=== PATIENT | male | born 1965 | race Caucasian/White ===

== ENCOUNTER → 2019-10-13 15:19 | Outpatient (CLI) | payer MEDICARE, MEDICAID, SELFPAY ==
--- NOTE | ~2019-10-13 | CT_ITS ---
EXAMINATION: CT abdomen pelvis w con DATE: 10/13/2019 15:55 INDICATION: Left lower quadrant abdominal pain. History of appendectomy and hernia repair. TECHNIQUE: Computed tomography (CT) of the abdomen and pelvis was performed with 100 cc Omnipaque 350 intravenous contrast. Automated exposure control and iterative reconstruction technique were employe d. Exam dose: 481.39 mGy-cm total exam DLP. COMPARISON: 04/15/2018 CT abdomen pelvis FINDINGS: There is mild discoid atelectasis or scarring in the lateral left lung base. The included l ower lung zones otherwise are clear of infiltrate or consolidation. There is prominent cardiomegaly. No pericardial or pleural effusion. Possible hepatic steatosis. No hepatic space-occupying mass lesion. The gallbladder is present and ap pears unremarkable. No bile duct or pancreatic duct dilatation. No pancreatic mass lesion or calcific ation is evident. Normal splenic size. No adrenal mass lesion. No renal mass lesion. Small lower pole left renal accessory artery is again identified. At least one small left renal cyst is suggested. There is incomplete rotation of the left kidney, the left renal p wiley directed anteriorly. No ureteral calculus or hydroureteronephrosis. Normal caliber of the abdominal aorta. No intraperitoneal or retroperitoneal or pelvic mass lesion or adenopathy or ascites. There is a small amount of free fluid in the dependent pelvic area at the mid line into the right. The urinary bladder is unremarkable. Moderate prostate enlargement. No bowel obstruction, bowel wall thickening, pneumatosis or intraperitoneal free air. Degenerative changes of the thoracic and lumbar spine including severe degenerative disc disease and mild retrolisthesis at L5-S1. IMPRESSION: Probable hepatic steatosis Prominent cardiomegaly Small amount of nonspecific free fluid in the dependent pelvis Moderate prostate enlargement Reviewed, dictated and finalized at [facility]. Reviewed, dictated and finalized at location [facility].
[2019-10-13 15:41] LABS: Estimated Glomerular Filt Rate > 60
== END ==
PROVIDERS: Visit Provider Surgery
DX: R10.32 Left lower quadrant pain (principal); K76.0 Fatty (change of) liver, not elsewhere classified; I51.7 Cardiomegaly
CPT/HCPCS: 36415; 74177; Q9967

== ENCOUNTER → 2021-06-20 11:57 | Outpatient (CLI) | payer MEDICARE, MEDICAID, SELFPAY ==
--- NOTE | ~2021-06-20 | XR_ITS ---
XR cervical spine 4-5V DATE: 06/20/2021 12:52 INDICATION: Neck pain TECHNIQUE: AP, open-mouth and lateral views. Flexion and extension lateral views. COMPARISON: None FINDINGS: C1 and C2 are normally aligned and the odontoid process is intact. No fracture or dislocati on or locked facet or cervical instability. No prevertebral soft tissue swelling. There is moderately severe degenerative disc disease at C5-6 and C6-7 as well as C7-T1. Uncovertebral joint spurring is noted particularly at C5-6 and C6-7. IMPRESSION: Cervical spondylosis; no fracture or dislocation or cervical instability Reviewed, dictated and finalized at location [facility]. IMPRESSION: Cervical spondylosis; no fracture or dislocation or cervical instab ility
== END ==
PROVIDERS: PCP Family Medicine; Visit Provider Nurse Practitioner Family
DX: M47.813 Spondylosis without myelopathy or radiculopathy, cervicothoracic region (principal)
CPT/HCPCS: 72050

== ENCOUNTER 2021-06-28 12:32 | Outpatient (CLI) | payer MEDICARE, MEDICAID, SELFPAY ==
[2021-06-28 13:34] LABS: Basophils Percent Auto 0.1 % (0.2-1.2); Hematocrit 42.8 % (42.0-52.0); Hemoglobin 14.4 g/dL (14.0-18.0); Immature Granulocyte Absolute 0.06 K/mm3 (0.00-0.031); Immature Granulocyte Percent A 0.4 % (0-0.5); Mean Corpuscular HGB Conc 33.6 g/dl (32-36); Mean Corpuscular Hemoglobin 31.9 pg (26-34); Mean Corpuscular Volume 94.9 fl (80-100); Mean Platelet Volume 9.3 fl (7.4-10.4); Monocytes Absolute Auto 0.5 K/mm3 (0.1-0.6); Monocytes Percent Auto 3.3 % (2.6-8.5); Neutrophils Absolute Auto 12.8 K/mm3 (1.3-6.7); Neutrophils Percent Auto 89.2 % (45.5-73.1); Platelet Count Result 250 k/mm3 (150-375); Red Blood Count 4.51 M/mm3 (4.6-6.20); Red Cell Distribution Width 12.9 % (11.5-14.5); White Blood Count 14.4 K/mm3 (4.5-10.0)
[2021-06-28 13:44] LABS: Alanine Aminotransferase 18 U/L (4-50); Albumin Level 4.3 g/dL (3.5-5.1); Alkaline Phosphatase 66 U/L (38-126); Anion Gap 8 mmol/L (8-16); Aspartate Amino Transferase 21 U/L (17-59); Blood Urea Nitrogen 20 mg/dL (9-20); Calcium 8.7 mg/dL (8.4-10.2); Carbon Dioxide 28 mmol/L (22-30); Chloride 99 mmol/L (98-107); Estimated Glomerular Filt Rate > 60; Glucose 159 mg/dL (65-110); Potassium 3.8 mmol/L (3.4-5.0); Sodium 135 mmol/L (137-145)
[2021-06-28 14:15] LABS: Prostate Specific Antigen 0.5 ng/mL (< OR = 4.0); Thyroid Stimulating Hormone 0.212 uIU/mL (0.465-4.680)
== END 2021-06-28 12:33 | disposition home or self-care (01) ==
LOC: ANHLAB 12:34
PROVIDERS: PCP Family Medicine; Visit Provider Family Medicine
DX: Z12.5 Encounter for screening for malignant neoplasm of prostate (principal); N40.0 Benign prostatic hyperplasia without lower urinary tract symptoms; I50.42 Chronic combined systolic (congestive) and diastolic (congestive) heart failure; K75.81 Nonalcoholic steatohepatitis (NASH)
CPT/HCPCS: 36415; 80048; 80076; 84153; 84443; 85025; G0103

== ENCOUNTER 2021-08-12 13:11 | Outpatient (CLI) | payer MEDICARE, MEDICAID, SELFPAY ==
--- NOTE | ~2021-08-12 | XR_ITS ---
XR chest 2V 08/12/2021 13:52 Indication: Cough. History of emphysema and COPD. Procedure: 2 view chest Comparison: No prior studies for comparison. Findings: Borderline heart size. There is coarse right basilar atelectasis/scarring. No acute focal p neumonia, edema, pleural effusion or pneumothorax. No acute osseous abnormality. Impression: 1: Coarse right basilar atelectasis/scarring. Reviewed, dictated and finalized at location [facility]. Impression: 1: Coarse right basilar atelectasis/scarring.
[2021-08-12 14:13] LABS: Anion Gap 11 mmol/L (8-16); Blood Urea Nitrogen 11 mg/dL (9-20); Calcium 8.7 mg/dL (8.4-10.2); Carbon Dioxide 27 mmol/L (22-30); Chloride 101 mmol/L (98-107); Estimated Glomerular Filt Rate > 60; Glucose 98 mg/dL (65-110); Potassium 3.8 mmol/L (3.4-5.0); Sodium 139 mmol/L (137-145)
[2021-08-12 14:44] LABS: Thyroid Stimulating Hormone 0.479 uIU/mL (0.465-4.680)
[2021-08-12 14:54] LABS: HIV 1/2 Ab P24 Ag Result Negative (Negative)
[2021-08-12 14:58] LABS: Hemoglobin A1C 5.7 % (<5.7)
[2021-08-15 06:16] LABS: Rapid Plasma Reagin Non-Reactive (NonReactive)
[2021-08-19 10:55] LABS: HSV 1 IgM Screen Negative (Negative); HSV 2 IgM Screen Negative (Negative)
== END 2021-08-12 13:12 | disposition home or self-care (01) ==
LOC: ANHLAB 13:28
PROVIDERS: Nurse Practitioner Family; PCP Family Medicine; Visit Provider Nurse Practitioner Family
DX: R73.09 Other abnormal glucose (principal); R79.89 Other specified abnormal findings of blood chemistry; J43.9 Emphysema, unspecified; R05.3 Chronic cough; Z20.2 Contact with and (suspected) exposure to infections with a predominantly sexual mode of transmission
CPT/HCPCS: 36415; 71046; 80048; 83036; 84443; 86592; 86695; 86696; 86703; 87491; 87591; 87661; G0432

== ENCOUNTER 2021-09-19 01:40 | Day surgery (SDC) | payer MEDICARE, MEDICAID, SELFPAY ==
[2021-09-15 10:41] VITALS: BMI 22.0
--- NOTE | 2021-09-16 13:46 | PM.HPGS ---
History of Present Illness History of Present Illness Consent: Risks, benefits, and alternatives have been discussed and questions answered. Patient agrees to proceed with procedure. Chief complaint: neoplasm screening Narrative: Miguelito Lopes is a 56 year old male referred for colon cancer screening Review of Systems Review of Systems: All systems reviewed & are unremarkable except as noted in HPI and below PMFSH Past Medical History Medical History Abdominal hernia Anxiety disorder, unspecified Atrial fibrillation and flutter Bladder wall thickening BMI 21.0-21.9, adult BMI 22.0-22.9, adult Cardiomegaly Congestive heart failure, unspecified COPD (chronic obstructive pulmonary disease) DJD (degenerative joint disease) of cervical spine Eye injury Fatty liver Hematuria Left inguinal hernia Lumbar spondylosis Non-healing skin lesion Patellofemoral syndrome, left Prostate enlargement Pulmonary emphysema Rotator cuff tear Screen for colon cancer Steatohepatitis Umbilical hernia Surgical History Surgical History History of bladder surgery ablation History of bunionectomy History of inguinal hernia repair History of knee surgery History of umbilical hernia repair History of vasectomy Family History Family History Father No problems noted. Mother Thyroid activity decreased Sibling , covid-19 No problems noted. Other Diabetes mellitus Family history of coronary artery disease Family history of malignant neoplasm Hypertension Social History Social History Smoking status: Never smoker Second hand tobacco smoke exposure: Yes Alcohol intake: never Substance use: never Substance use type: marijuana Other substance usage details: OCCASIONAL Living arrangements: with family Additional occupation/education comments: disabled Gender identity (if verbalized by the patient): Male Spiritual care concerns: No Meds Home Medications and Allergies Home Medications Medication Instructions Recorded Confirmed Type naloxone 4 mg/actuation nasal 4 mg intranasal Q2-3M PRN opioid 10/30/19 09/19/21 Rx spray (Narcan) overdose #2 ea apixaban 5 mg tablet (Eliquis) 5 mg PO BID 12/31/19 09/19/21 History duloxetine 60 mg capsule,delayed 60 mg PO DAILY #30 caps 02/03/21 09/19/21 Rx release albuterol sulfate 90 mcg/actuation 2 inh inhalation Q6H PRN shortness 05/10/21 09/19/21 Rx aerosol inhaler of breath or wheezing #8.5 grams cyclobenzaprine 5 mg tablet 5 mg PO QHS #30 tabs 08/23/21 09/19/21 Rx hydrocodone 10 mg-acetaminophen 1 tablet PO Q4H PRN pain #150 tabs 08/23/21 09/19/21 Rx 325 mg tablet alprazolam 1 mg tablet (Xanax) 1 mg PO QID PRN anxiety #120 tabs 09/14/21 09/19/21 Rx Magnesium 400mg 400 mg PO DAILY 09/15/21 09/19/21 History ergocalciferol (vitamin D2) 400 400 unit PO DAILY 09/15/21 09/19/21 History unit capsule erythromycin 5 mg/gram (0.5 %) eye 1 ea RIGHT EYE DAILY 09/15/21 09/19/21 History ointment Allergies Allergy/AdvReac Type Severity Reaction Status Date / Time ciprofloxacin Allergy Intermediate Rash Verified 09/19/21 09:27 Exam Resp: Auscultation: clear to auscultation bilaterally Cardio: Rate: regular rate Rhythm: regular rhythm GI: GI Palp: Yes Soft to palpation and No Tenderness to palpation present (GI) Assessment and Plan Assessment and plan (1) Screen for colon cancer: Code(s): Z12.11 - Encounter for screening for malignant neoplasm of colon Status: Acute Assessment and Plan: Colonoscopy with possible biopsy or polypectomy or cautery or injection of substances.
[2021-09-19 09:30] VITALS: BP 102/66; PULSE 50; RESP 18; TEMP 36.1; O2SAT 96; BMI 22.1
[2021-09-19] MEDS: LACTATED RINGERS 1,000 ML 150 ML IV CONT (09:45)
--- NOTE | 2021-09-19 09:50 | WPDANESEPPF ---
Anes - Initial Pre Proc Eval Procedure: Operation Date: 09/19/21 10:00 Proposed Procedures p Screening Colonoscopy - Gerry Banerjee MD Date/Time: 09/19/21 09:50 Surgeon: Gerry Banerjee MD Pre Op Diagnosis: neoplasm screening Patient Data Age: 56 Gender: M Height: 1.68 m Weight: 62.2 kg Last Vital Signs Temp 97.0 F L 09/19/21 09:30 Pulse 50 L 09/19/21 09:30 Resp 18 09/19/21 09:30 BP 102/66 09/19/21 09:30 Pulse Ox 96 09/19/21 09:30 O2 Del Method Room Air 09/19/21 09:30 Allergies Allergy/AdvReac Type Severity Reaction Status Date / Time ciprofloxacin Allergy Intermediate Rash Verified 09/19/21 09:27 Home Medications Medication Instructions Recorded Confirmed Type naloxone 4 mg/actuation nasal 4 mg intranasal Q2-3M PRN opioid 10/30/19 09/19/21 Rx spray (Narcan) overdose #2 ea apixaban 5 mg tablet (Eliquis) 5 mg PO BID 12/31/19 09/19/21 History duloxetine 60 mg capsule,delayed 60 mg PO DAILY #30 caps 02/03/21 09/19/21 Rx release albuterol sulfate 90 mcg/actuation 2 inh inhalation Q6H PRN shortness 05/10/21 09/19/21 Rx aerosol inhaler of breath or wheezing #8.5 grams cyclobenzaprine 5 mg tablet 5 mg PO QHS #30 tabs 08/23/21 09/19/21 Rx hydrocodone 10 mg-acetaminophen 1 tablet PO Q4H PRN pain #150 tabs 08/23/21 09/19/21 Rx 325 mg tablet alprazolam 1 mg tablet (Xanax) 1 mg PO QID PRN anxiety #120 tabs 09/14/21 09/19/21 Rx Magnesium 400mg 400 mg PO DAILY 09/15/21 09/19/21 History ergocalciferol (vitamin D2) 400 400 unit PO DAILY 09/15/21 09/19/21 History unit capsule erythromycin 5 mg/gram (0.5 %) eye 1 ea RIGHT EYE DAILY 09/15/21 09/19/21 History ointment Patient hx anesthesia problems: none Family hx anesthesia problems: none Results Review: All pre-operative results and documents have been reviewed as part of the pre-operative evaluation. [facility] Past Medical History Medical History (Updated 09/05/21 @ 08:36 by Louis Hewitt MD) Abdominal hernia Anxiety disorder, unspecified Atrial fibrillation and flutter Bladder wall thickening BMI 21.0-21.9, adult BMI 22.0-22.9, adult Cardiomegaly Congestive heart failure, unspecified COPD (chronic obstructive pulmonary disease) DJD (degenerative joint disease) of cervical spine Eye injury Fatty liver Hematuria Left inguinal hernia Lumbar spondylosis Non-healing skin lesion Patellofemoral syndrome, left Prostate enlargement Pulmonary emphysema Rotator cuff tear Screen for colon cancer Steatohepatitis Umbilical hernia Surgical History Surgical History History of bladder surgery ablation History of bunionectomy History of inguinal hernia repair History of knee surgery History of umbilical hernia repair History of vasectomy Family History Family History Father No problems noted. Mother Thyroid activity decreased Sibling , covid-19 No problems noted. Other Diabetes mellitus Family history of coronary artery disease Family history of malignant neoplasm Hypertension Social History Social History Smoking status: Never smoker Second hand tobacco smoke exposure: Yes Alcohol intake: never Substance use: never Substance use type: marijuana Other substance usage details: OCCASIONAL Living arrangements: with family Additional occupation/education comments: disabled Gender identity (if verbalized by the patient): Male Spiritual care concerns: No Anes - Eval Final PreProcedure Day of Procedure 09/19/21 09:50 Patient weight: normal Heart: irregular rhythm Lungs: clear to auscultation Airway: Mallampati scale class II Neurological: alert and oriented Last oral intake: >/= 8 hours ASA classification: III Emergent: no Anesthetic plan: proceed Anesthesia type and monitoring: general
--- NOTE | 2021-09-19 09:54 | WPDANESEPPF ---
Anes - Initial Pre Proc Eval Procedure: Operation Date: 09/19/21 10:00 Proposed Procedures p Screening Colonoscopy - Gerry Banerjee MD Date/Time: 09/19/21 09:54 Surgeon: Gerry Banerjee MD Pre Op Diagnosis: neoplasm screening Patient Data Age: 56 Gender: M Height: 1.68 m Weight: 62.2 kg Last Vital Signs Temp 97.0 F L 09/19/21 09:30 Pulse 50 L 09/19/21 09:30 Resp 18 09/19/21 09:30 BP 102/66 09/19/21 09:30 Pulse Ox 96 09/19/21 09:30 O2 Del Method Room Air 09/19/21 09:30 Allergies Allergy/AdvReac Type Severity Reaction Status Date / Time ciprofloxacin Allergy Intermediate Rash Verified 09/19/21 09:27 Home Medications Medication Instructions Recorded Confirmed Type naloxone 4 mg/actuation nasal 4 mg intranasal Q2-3M PRN opioid 10/30/19 09/19/21 Rx spray (Narcan) overdose #2 ea apixaban 5 mg tablet (Eliquis) 5 mg PO BID 12/31/19 09/19/21 History duloxetine 60 mg capsule,delayed 60 mg PO DAILY #30 caps 02/03/21 09/19/21 Rx release albuterol sulfate 90 mcg/actuation 2 inh inhalation Q6H PRN shortness 05/10/21 09/19/21 Rx aerosol inhaler of breath or wheezing #8.5 grams cyclobenzaprine 5 mg tablet 5 mg PO QHS #30 tabs 08/23/21 09/19/21 Rx hydrocodone 10 mg-acetaminophen 1 tablet PO Q4H PRN pain #150 tabs 08/23/21 09/19/21 Rx 325 mg tablet alprazolam 1 mg tablet (Xanax) 1 mg PO QID PRN anxiety #120 tabs 09/14/21 09/19/21 Rx Magnesium 400mg 400 mg PO DAILY 09/15/21 09/19/21 History ergocalciferol (vitamin D2) 400 400 unit PO DAILY 09/15/21 09/19/21 History unit capsule erythromycin 5 mg/gram (0.5 %) eye 1 ea RIGHT EYE DAILY 09/15/21 09/19/21 History ointment Patient hx anesthesia problems: none Family hx anesthesia problems: none Results Review: All pre-operative results and documents have been reviewed as part of the pre-operative evaluation. [facility] Past Medical History Medical History (Updated 09/05/21 @ 08:36 by Louis Hewitt MD) Abdominal hernia Anxiety disorder, unspecified Atrial fibrillation and flutter Bladder wall thickening BMI 21.0-21.9, adult BMI 22.0-22.9, adult Cardiomegaly Congestive heart failure, unspecified COPD (chronic obstructive pulmonary disease) DJD (degenerative joint disease) of cervical spine Eye injury Fatty liver Hematuria Left inguinal hernia Lumbar spondylosis Non-healing skin lesion Patellofemoral syndrome, left Prostate enlargement Pulmonary emphysema Rotator cuff tear Screen for colon cancer Steatohepatitis Umbilical hernia Surgical History Surgical History History of bladder surgery ablation History of bunionectomy History of inguinal hernia repair History of knee surgery History of umbilical hernia repair History of vasectomy Family History Family History Father No problems noted. Mother Thyroid activity decreased Sibling , covid-19 No problems noted. Other Diabetes mellitus Family history of coronary artery disease Family history of malignant neoplasm Hypertension Social History Social History Smoking status: Never smoker Second hand tobacco smoke exposure: Yes Alcohol intake: never Substance use: never Substance use type: marijuana Other substance usage details: OCCASIONAL Living arrangements: with family Additional occupation/education comments: disabled Gender identity (if verbalized by the patient): Male Spiritual care concerns: No Anes - Eval Final PreProcedure Day of Procedure 09/19/21 09:54 Patient weight: normal Heart: irregular rhythm Lungs: clear to auscultation Airway: Mallampati scale class II Neurological: alert and oriented Last oral intake: >/= 8 hours ASA classification: III Emergent: no Anesthetic plan: proceed Anesthesia type and monitoring: general
[2021-09-19 10:24] VITALS: BP 80/53; PULSE 72; RESP 21; O2SAT 97
[2021-09-19 10:34] VITALS: BP 86/58; PULSE 75; RESP 20; O2SAT 96
[2021-09-19 10:44] VITALS: BP 110/86; PULSE 75; RESP 19; O2SAT 100
== END 2021-09-19 10:56 | disposition home or self-care (01) ==
PROVIDERS: PCP Family Medicine; Visit Provider Internal Medicine Gastroenterology
PROC: 0DJD8ZZ Inspection of Lower Intestinal Tract, Via Natural or Artificial Opening Endoscopic (ICD-10-PCS; CPT 45378; principal; 2021-09-19 10:00)
DX: Z12.11 Encounter for screening for malignant neoplasm of colon (principal); I48.91 Unspecified atrial fibrillation; F41.9 Anxiety disorder, unspecified; I50.9 Heart failure, unspecified; J44.9 Chronic obstructive pulmonary disease, unspecified; K76.0 Fatty (change of) liver, not elsewhere classified; M47.816 Spondylosis without myelopathy or radiculopathy, lumbar region; M50.30 Other cervical disc degeneration, unspecified cervical region; Z79.891 Long term (current) use of opiate analgesic; Z79.51 Long term (current) use of inhaled steroids; Z79.01 Long term (current) use of anticoagulants
CPT/HCPCS: G0121; J2001; J2704; J7120

== ENCOUNTER 2022-05-23 07:07 | Outpatient (CLI) | payer MEDICARE, MEDICAID, SELFPAY ==
--- NOTE | ~2022-05-23 | CT_ITS ---
EXAMINATION: CT abdomen pelvis w con DATE: 05/23/2022 07:50 INDICATION: Left lower quadrant pain along hernia repair TECHNIQUE: Computed tomography (CT) of the abdomen and pelvis was performed with 100 cc Omnipaque 350 intravenous contrast. The dose-length product was 369.04 mGy-cm. Automated exposure control and iter ative reconstruction technique were employed. COMPARISON: CT dated 10/13/2019 FINDINGS: There is bibasilar atelectasis. Cardiomegaly. No significant pleural or pericardial effusio n. No significant vascular abnormality. There is malrotation of the left kidney. Fatty infiltration o f the liver. The spleen, pancreas, adrenal glands and right kidney are unremarkable. There is a small subcentimeter hypodensity of the left kidney, too small to characterize, although likely benign. Gal lbladder is present. Nonobstructive bowel gas pattern. There are changes of left inguinal hernia repa ir. No significant lymphadenopathy. Bladder is decompressed. No abnormal pelvic masses or fluid colle ctions. No free air or free fluid. Moderate lumbar spondylosis. IMPRESSION: 1. No acute abdominal abnormality. No findings to account for patient's symptoms. Reviewed, dictated and finalized at location [facility]. 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 No acute abdominal abnormality. No findings to account for patient's symptom s.
[2022-05-23 07:43] LABS: Estimated Glomerular Filt Rate > 60
== END 2022-05-23 07:08 | disposition home or self-care (01) ==
PROVIDERS: PCP Family Medicine; Visit Provider Family Medicine
DX: R10.32 Left lower quadrant pain (principal)
CPT/HCPCS: 74177; Q9967

== ENCOUNTER 2022-08-18 13:56 | Outpatient (CLI) | payer MEDICARE, MEDICAID, SELFPAY ==
--- NOTE | ~2022-08-18 | CT_ITS ---
CT Scan of the Chest without Contrast: Clinical Indication: Emphysema Technique: Contiguous sections were acquired throughout the chest without intravenous contrast. Dose reduction technique was used on this scan by utilizing automated exposure control and iterative recon struction technique. The dose-length product (DLP) was 105.18 mGy-cm. Findings: There is no evidence of any significant mediastinal, hilar or axillary lymphadenopathy. Coronary haris ry calcium cages are present. Minimal pericardial fluid noted. No pleural effusions. There is discoid scarring or atelectasis at the right lung base. There is additional probable focal s carring in the lingula. Images through the upper abdomen reveal no abnormalities. Impression: Bibasilar scarring or atelectatic change, as noted above. Minimal pericardial fluid. Reviewed, dictated and finalized at [facility]. Impression: Bibasilar scarring or atelectatic change, as noted above. Minimal pericardial fluid.
--- NOTE | ~2022-08-18 | MR_ITS ---
MRI of the cervical spine Clinical History: Cervical disc disorder Technique: Axial T2-weighted and gradient images, and sagittal T1-weighted, T2-weighted, and STIR lucina ges were acquired. Findings: There is no fracture or subluxation of the cervical spine. Vertebral bodies maintain normal height and alignment. No suspicious bone marrow signal abnormality seen. At C2-C3, there is minimal central disc protrusion. No spinal canal stenosis, cord compression, or ne ural foraminal narrowing. At C3-C4, there is minimal disc osteophyte complex. No spinal canal stenosis, cord compression, or ri ght neural foraminal narrowing. Probable minimal left neural foraminal narrowing. At C4-C5, there is minimal disc osteophyte complex. No spinal canal stenosis or cord compression. The re is minimal left neural foraminal narrowing. Right neural foramen preserved. At C5-C6, there is mild disc osteophyte complex, contributing to bilateral neural foraminal narrowing , right worse than left. No central canal stenosis or cord compression. At C6-C7, there is disc osteophyte complex and superimposed central disc protrusion resulting in mild canal stenosis without kirill cord compression. There is bilateral neural foraminal narrowing, right worse than left. No abnormal signal seen in the spinal cord. Paravertebral soft tissues are unremarkable. Impression: Moderate degenerative spondylosis, particularly at C5-C6 and C6-C7, as detailed above. Additional minimal degenerative changes, as above. Reviewed, dictated and finalized at [facility]. Impression: Moderate degenerative spondylosis, particularly at C5-C6 and C6-C7, as detailed above. Additional minimal degenerative changes, as above.
--- NOTE | ~2022-08-18 | MR_ITS ---
MRI of the lumbar spine Clinical History: Degenerative disc disease Technique: Axial T2-weighted images, and sagittal T1-weighted, T2-weighted, and and T2 fat-sat images were acquired. Findings: No fracture identified in the lumbar spine. 4 mm retrolisthesis of L5 over S1 present. Ther e are reactive marrow signal changes about the L3-L4 disc space due to underlying degenerative disc d isease. At L1-L2, there is minimal left foraminal disc bulge and minimal facet arthropathy. No central canal stenosis. No definite neural foraminal narrowing. At L2-L3, there is no disc bulge or herniation. There is mild facet arthropathy. No spinal canal sten osis or neural foraminal narrowing. At L3-L4, there is diffuse disc bulge and mild facet arthropathy. No kirill central canal stenosis. Th ere is moderate right neural foraminal narrowing and mild left neural foraminal narrowing. At L4-L5, there is disc bulge and advanced facet arthropathy. There is left lateral recess stenosis. There is moderate bilateral neural foraminal narrowing. At L5-S1, there is advanced degenerative disc narrowing with mild disc bulge. There is moderate to ad vanced facet arthropathy. No central canal stenosis. There is severe bilateral neural foraminal narro wing. Paravertebral soft tissues are unremarkable. Impression: Moderate degenerative spondylosis, as detailed above, especially involving the lower lumbar spine. 4 mm retrolisthesis of L5 over S1. Reviewed, dictated and finalized at [facility]. Impression: Moderate degenerative spondylosis, as detailed above, especially involving the lower lumbar spine. 4 mm retrolisthesis of L5 over S1.
== END 2022-08-18 13:57 | disposition home or self-care (01) ==
PROVIDERS: PCP Family Medicine; Visit Provider Family Medicine
DX: M51.37 Other intervertebral disc degeneration, lumbosacral region (principal); M50.00 Cervical disc disorder with myelopathy, unspecified cervical region; J43.9 Emphysema, unspecified; M47.892 Other spondylosis, cervical region; M47.896 Other spondylosis, lumbar region
CPT/HCPCS: 71250; 72141; 72148

== ENCOUNTER 2023-05-08 10:39 | Outpatient (CLI) | payer MEDICARE, SELFPAY ==
[2023-05-08 11:49] LABS: Basophils Absolute Auto 0.1 K/mm3 (0.0-0.1); Basophils Percent Auto 0.8 % (0.2-1.2); Eosinophils Absolute Auto 0.1 K/mm3 (0-0.3); Eosinophils Percent Auto 1.5 % (0-4.4); Hematocrit 45.6 % (42.0-52.0); Hemoglobin 14.9 g/dL (14.0-18.0); Immature Granulocyte Absolute 0.01 K/mm3 (0.00-0.031); Immature Granulocyte Percent A 0.2 % (0-0.5); Lymphocytes Absolute Auto 1.83 K/mm3 (0.9-3.2); Mean Corpuscular HGB Conc 32.7 g/dl (32-36); Mean Corpuscular Hemoglobin 31.4 pg (26-34); Mean Platelet Volume 9.4 fl (7.4-10.4); Monocytes Absolute Auto 0.5 K/mm3 (0.1-0.6); Monocytes Percent Auto 7.5 % (2.6-8.5); Neutrophils Absolute Auto 3.7 K/mm3 (1.3-6.7); Platelet Count Result 179 k/mm3 (150-375); Red Blood Count 4.75 M/mm3 (4.6-6.20); Red Cell Distribution Width 12.8 % (11.5-14.5); White Blood Count 6.1 K/mm3 (4.5-10.0)
[2023-05-08 12:00] LABS: Alanine Aminotransferase 27 U/L (6-50); Albumin Level 4.2 g/dL (3.5-5.1); Alkaline Phosphatase 66 U/L (38-126); Anion Gap 7 mmol/L (8-16); Aspartate Amino Transferase 31 U/L (17-59); Bilirubin,Total 1.2 mg/dL (0.2-1.3); Blood Urea Nitrogen 16 mg/dL (9-20); Calcium 8.8 mg/dL (8.4-10.2); Carbon Dioxide 27 mmol/L (22-30); Chloride 105 mmol/L (98-107); Cholesterol 165 mg/dL (0-200); Estimated Glomerular Filt Rate > 60; Glucose 91 mg/dL (65-110); HDL Direct 48 mg/dL; Potassium 4.5 mmol/L (3.4-5.0); Sodium 139 mmol/L (137-145); Triglycerides 114 mg/dL (<150)
[2023-05-08 12:11] LABS: LDL Cholesterol Direct 89 mg/dL
[2023-05-08 12:37] LABS: HIV 1/2 Ab P24 Ag Result Negative (Negative)
[2023-05-08 12:43] LABS: Hepatitis B Surface Antigen Negative (Negative)
[2023-05-08 12:49] LABS: HAV RESULT Negative (Negative); Hepatitis B Core IgM Result Negative (Negative)
[2023-05-08 13:00] LABS: Hepatitis C Virus Antibody Negative (Negative)
== END 2023-05-08 10:40 | disposition home or self-care (01) ==
PROVIDERS: PCP Family Medicine; Visit Provider Family Medicine
DX: I48.91 Unspecified atrial fibrillation (principal); I50.42 Chronic combined systolic (congestive) and diastolic (congestive) heart failure; Z72.51 High risk heterosexual behavior; I48.92 Unspecified atrial flutter; Z13.220 Encounter for screening for lipoid disorders; K75.81 Nonalcoholic steatohepatitis (NASH); Z11.4 Encounter for screening for human immunodeficiency virus [HIV]
CPT/HCPCS: 36415; 80048; 80061; 80074; 80076; 84443; 85025; 86703; G0432

== ENCOUNTER 2023-05-28 09:12 | Outpatient (CLI) | payer MEDICARE, SELFPAY ==
--- NOTE | ~2023-05-28 | US_ITS ---
EXAMINATION: US abdomen complete DATE: 05/28/2023 11:25 INDICATION: Fatty change of the liver TECHNIQUE: Multiple grayscale and Doppler ultrasound images of the abdomen were obtained. COMPARISON: CT, 05/23/2022 FINDINGS: The head and body of the pancreas are normal. The pancreatic tail is obscured by bowel gas. The liver is normal with normal echogenicity and echotexture. No surface nodularity. Normal hepatope ina flow in the main portal vein. The gallbladder is normal with no abnormal wall thickening, pericho lecystic fluid or stones. The normal common bile duct measures 6 mm. There was no sonographic Sofia sign. The visualized portions of the aorta and inferior vena cava are normal. The spleen is normal in appearance and measures 12.3 cm. The right kidney measures 10.8 x 5.0 x 5.0 c m. The left kidney measures 11.9 x 3.5 x 2.9 cm and contains a 1 cm cyst. The kidneys demonstrate nor mal parenchymal echogenicity. There is no hydronephrosis. IMPRESSION: 1. Unremarkable abdominal ultrasound. Reviewed, dictated and finalized at location B. 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
== END 2023-05-28 09:13 | disposition home or self-care (01) ==
PROVIDERS: PCP Family Medicine; Visit Provider Family Medicine
DX: K76.0 Fatty (change of) liver, not elsewhere classified (principal)
CPT/HCPCS: 76700

== ENCOUNTER 2023-07-18 14:20 | Outpatient (CLI) | payer MEDICARE, SELFPAY ==
[2023-07-18 15:09] LABS: Rheumatoid Factor < 12.0 IU/ML (<12)
[2023-07-18 15:09] LABS: CRP < 0.5 mg/dL (<1.0)
[2023-07-18 15:54] LABS: Erythrocyte Sedimentation Rate 7 mm/hr (0-20)
[2023-07-20 11:18] LABS: ANA Cascade Screen NEGATIVE (NEGATIVE)
== END 2023-07-18 14:21 | disposition home or self-care (01) ==
LOC: ANHLAB 14:23
PROVIDERS: PCP Family Medicine; Visit Provider Nurse Practitioner Adult Health
DX: M25.50 Pain in unspecified joint (principal)
CPT/HCPCS: 36415; 85652; 86038; 86140; 86225; 86235; 86364; 86430

== ENCOUNTER 2023-12-03 11:07 | Outpatient (CLI) | payer MEDICARE, SELFPAY ==
--- NOTE | ~2023-12-03 | XR_ITS ---
3 VIEWS LUMBAR SPINE Ordering provider: Perlita Fernandez MD History: . M43.16 - Spondylolisthesis, lumbar region . Comparison: None. FINDINGS: VERTEBRAL BODIES: No visible fracture or subluxation. Degenerative changes of the spine. DISK SPACES: Narrowing of the disc L3-L4, L4-L5 and L5-S1. Facet joint disease at the level of L5-S1. SOFT TISSUES: Normal. IMPRESSION: No acute osseous abnormality lumbar spine. Multilevel degenerative disc disease. Reviewed, dictated and finalized at location [facility].
--- NOTE | ~2023-12-03 | XR_ITS ---
[id number] Ordering provider: Noris Myles NP History: . Z91.81 - History of falling . Comparison: None. FINDINGS: VERTEBRAL BODIES: Normal height and alignment. No visible fracture or subluxation. The dens is intact . Degenerative changes of the spine. DISK SPACES: Narrowing of the disc C5-C6 and C6-C7. Uncovertebral joint osteoarthritic changes at the same levels. PARASPINOUS SOFT TISSUES: No prevertebral soft tissue swelling. IMPRESSION: No acute osseous abnormality cervical spine. Degenerative disc disease at the level of C5-C6 and C6-C7. Reviewed, dictated and finalized at location A.
== END 2023-12-03 11:08 | disposition home or self-care (01) ==
LOC: ANHIMG 11:12
PROVIDERS: PCP Family Medicine; Visit Provider Neurological Surgery
DX: M50.322 Other cervical disc degeneration at C5-C6 level (principal); M50.323 Other cervical disc degeneration at C6-C7 level; M43.16 Spondylolisthesis, lumbar region; M51.36 Other intervertebral disc degeneration, lumbar region; M51.37 Other intervertebral disc degeneration, lumbosacral region; Z91.81 History of falling
CPT/HCPCS: 72040; 72110

== ENCOUNTER 2023-12-30 07:24 | Outpatient (CLI) | payer MEDICARE, SELFPAY ==
--- NOTE | ~2023-12-30 | MR_ITS ---
MRI of the brain Clinical History: Head injury, anticoagulation Technique: Axial and sagittal T1-weighted images were acquired. These were followed by axial T2-weigh janes, diffusion weighted, gradient, and FLAIR images. Following intravenous administration of 15 cc Mu ltiHance gadolinium, T1-weighted fat-sat imaging was performed in the axial, sagittal, and coronal pl anes. Findings: No significant abnormal signal seen in the brain parenchyma. No acute infarct, intracranial hemorrhage, or mass lesion. Ventricles and subarachnoid spaces are mildly dilated. Orbits are unremarkable. There is minimal bila teral maxillary sinus disease. Paranasal sinuses and mastoid air cells are otherwise clear. Major int racranial flow voids appear intact. Sagittal midline structures are intact. No abnormal postcontrast enhancement identified. IMPRESSION: No significant abnormality seen. Reviewed, dictated and finalized at [facility].
== END 2023-12-30 07:25 | disposition home or self-care (01) ==
LOC: ANHIMG 07:29
PROVIDERS: PCP Family Medicine
DX: S09.90XA Unspecified injury of head, initial encounter (principal); Z91.81 History of falling; Z92.29 Personal history of other drug therapy; X58.XXXA Exposure to other specified factors, initial encounter
CPT/HCPCS: 70553; A9577

== ENCOUNTER 2024-03-10 10:51 | Outpatient (CLI) | payer MEDICARE, SELFPAY ==
--- NOTE | ~2024-03-10 | MR_ITS ---
EXAMINATION: MR abdomen wo con DATE: 03/10/2024 11:44 INDICATION: Incisional hernia without obstruction or gangrene. TECHNIQUE: Magnetic resonance imaging (MRI) of the abdomen was performed without intravenous contrast . COMPARISON: CT abdomen and pelvis 05/23/2022 FINDINGS: There is a 6 mm cyst in the liver. The gallbladder, spleen, pancreas, and adrenal glands are normal. There are cysts in the kidneys measuring up to 11 mm on the left. There are no dilated loops of bowel . There are no pathologically enlarged lymph nodes. There is physiologic fluid in the pelvis. There i s a supraumbilical ventral hernia containing fat. IMPRESSION: 1. Supraumbilical ventral hernia containing fat. Reviewed, dictated and finalized at location A. 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
== END 2024-03-10 10:52 | disposition home or self-care (01) ==
PROVIDERS: PCP Family Medicine; Visit Provider Nurse Practitioner Adult Health
DX: K43.9 Ventral hernia without obstruction or gangrene (principal); K43.2 Incisional hernia without obstruction or gangrene; K40.91 Unilateral inguinal hernia, without obstruction or gangrene, recurrent
CPT/HCPCS: 74181

== ENCOUNTER 2024-06-15 17:40 | Inpatient (IN) | payer MEDICARE, SELFPAY ==
[2024-06-15] VITALS (20 sets, daily range): BP systolic 121–154; BP diastolic 89–106; PULSE 76–131; RESP 13–21; TEMP 37; O2SAT 97–100
--- NOTE | ~2024-06-15 | CT_ITS ---
EXAMINATION: CT brain wo con DATE: 06/16/2024 01:09 INDICATION: Right arm numbness. Myoclonic jerks. TECHNIQUE: Computed tomography (CT) of the head was performed without intravenous contrast. The mA wa s adjusted according to patient size. Iterative reconstruction technique was employed. The dose-lengt h product was 681.00 mGy-cm. COMPARISON: Brain MRI 12/30/2023 FINDINGS: There is no intracranial hemorrhage, acute infarction, or abnormal intracranial mass lesion . The ventricles are normal in size. The orbits are normal. There is mild mucosal thickening in the p aranasal sinuses. The mastoid air cells are normal. IMPRESSION: 1. Normal brain. Reviewed, dictated and finalized at location A. IMPRESSION: 1. Normal brain.
--- NOTE | ~2024-06-15 | MR_ITS ---
MR brain/brain stem wo con Ordering provider: Sebas Ortega MD History: 58 years Male with . involuntary movements . Comparison: December 30, 2023 Technique: MRI brain was performed without contrast. FINDINGS: BONES: Normal. CRANIOCERVICAL JUNCTION: normal. PITUITARY: Normal. MAJOR INTRACRANIAL VESSELS: Normal flow void. OPTIC NERVES AND CRANIAL NERVES VII AND VIII COMPLEXES: Grossly normal. BRAIN PARENCHYMA AND CSF SPACES: Few scattered T2 and FLAIR hyperintense signal areas seen in the de ep white matter and subcortical areas.. Otherwise, The brainstem and cerebellum are normal. No acute or chronic intracranial hemorrhage. No extra axial fluid collections. Diffusion weighted and ADC map ping images reveal no recent ischemia. No midline shift or mass effect. PARANASAL SINUSES: Bilateral maxillary sinus disease. MASTOIDS: Normal SUPERFICIAL/SURROUNDING SOFT TISSUES: Normal. IMPRESSION: 1. Scattered T2 and FLAIR hyperintense signal areas in the deep white matter and subcortical areas w hich may indicate white matter disease like multiple sclerosis. Clinical correlation and further eval uation advised. Otherwise, No definite intracranial abnormality seen. Reviewed, dictated and finalized at location A. IMPRESSION: 1. Scattered T2 and FLAIR hyperintense signal areas in the deep white matter a nd subcortical areas which may indicate white matter disease like multiple scle rosis. Clinical correlation and further evaluation advised. Otherwise, No defin ite intracranial abnormality seen.
--- NOTE | ~2024-06-15 | XR_ITS ---
XR chest 1V portable DATE: 06/15/2024 21:23 INDICATION: Chest pain TECHNIQUE: COMPARISON: 08/18/2022 CT chest 08/12/2021 2 view chest FINDINGS: There is a globular enlarged appearing cardiac silhouette with which may be due to cardiome rebecca or pericardial effusion. (Small pericardial effusion was present on 08/18/2022 CT chest examinati on.) Pulmonary vascular prominence and redistribution may indicate mild pulmonary venous hypertension. No pleural effusion. No pneumothorax. IMPRESSION: Globular enlarged cardiac silhouette which may be due to cardiomegaly cervical pericardia l effusion is not excluded Pulmonary vascular prominence and redistribution suggesting pulmonary venous hypertension, mild conge stive heart failure Reviewed, dictated and finalized at location A. IMPRESSION: Globular enlarged cardiac silhouette which may be due to cardiomega ly cervical pericardial effusion is not excluded Pulmonary vascular prominence and redistribution suggesting pulmonary venous hy pertension, mild congestive heart failure
--- NOTE | ~2024-06-15 | CT_ITS ---
EXAMINATION: CTA chest abdomen pelvis DATE: 06/15/2024 21:48 INDICATION: Chest and epigastric pain, right arm numbness TECHNIQUE: Computed tomography angiography (CTA) of the chest, abdomen and pelvis was performed with 100 mL Omnipaque-350 intravenous contrast timed to evaluate the pulmonary arteries. Coronal maximum i ntensity projection 3D-reconstructions were created by the technologist. Automated exposure control a nd iterative reconstruction technique were employed. Exam dose: 336.50 mGy-cm total exam DLP. COMPARISON: None. FINDINGS: Small pericardial effusion, measuring up to 10 mm thickness. Left superior vena cava is noted, an embryological anatomic variant. Prominent diameter of lobar and segmental pulmonary arteries. No pulmonary embolism is evident. No thoracic aortic aneurysm or dissection. No hilar or mediastinal mass lesion or lymphadenopathy. The liver, gallbladder, bile ducts, pancreas are unremarkable except for the pancreatic duct is mildl y dilated at up to 4.43 mm diameter. No bile duct dilatation. The gallbladder is relatively contracte d. There is a large apparently high density fluid collection in the left upper quadrant at the inferior aspect of the spleen with ill-definition of the inferior splenic margin. The findings suggest inferio r splenic laceration or rupture with adjacent large intrasplenic hematoma, with medial displacement o f the descending colon. No actively extravasated IV contrast material is identified. Close monitoring of vital signs is encouraged. No adjacent rib fracture is noted. Normal morphology of the adrenal glands. No renal mass lesion or urinary tract calculus or hydroureteronephrosis. The urinary bladder is unrem arkable. Moderate prostate enlargement. Normal caliber of the abdominal aorta. No abdominal aortic aneurysm or dissection. No intraperitoneal or retroperitoneal or pelvic mass lesion or adenopathy or ascites is detected. There is apparent thickening of the wall of the stomach. The stomach outline is not optimally defined . Differential diagnosis for the fluid collection in the left upper quadrant and included gastric per foration. However, no intraperitoneal free air is noted. There are multiple small bowel air-fluid levels. No apparent bowel wall thickening or intraperitoneal free air is noted. No suspicious osteolytic or osteoblastic lesions. Degenerative changes of the thoracic and lumbar spine including severe degenerative disc disease at L 5-S1 with associated mild retrolisthesis. IMPRESSION: Relative high density fluid collection subjacent to the spleen, with somewhat ill-define d inferior splenic margin, suggesting splenic laceration or rupture with hemoperitoneum Cardiomegaly, mild pericardial effusion Dr. Cheng telephoned the findings to physician assistant hvac mechanic Britni in the emergency room on 06/15/2024 at 1 025 hours. Reviewed, dictated and finalized at [facility]. Reviewed, dictated and finalized at [facility]. IMPRESSION: Relative high density fluid collection subjacent to the spleen, wi th somewhat ill-defined inferior splenic margin, suggesting splenic laceration or rupture with hemoperitoneum Cardiomegaly, mild pericardial effusion Dr. Cheng telephoned the findings to physician assistant hvac mechanic Britni in the emergency room on 06/15/2024 at 1025 hours.
--- OUTSIDE RECORDS SUMMARY | 2024-06-15 17:42 | XMS_ITS | Continuity of Care Document ---
Author Organization [facility] Address [address] [facility] [address] [place] [address] Phone Care Team Providers Care Proced Tech Name Role Phone Sandra Vazquez Unavailable Unavailable Advance Directives Directive Yes / No Effective Date File Name No Information Encounters Encounter Description Practice Location Reason(s) For Visit Diagnoses Date Provider Providers Copied on Encounter [facility], [address], [place], [place], [id number], [place] tel:[phone] [facility] No Information [phone] Taylor Flores. [address] [facility] [facility] , [address], [place], [address], [place]. tel:[phone] Family History Family Member Type Diagnosis Age At Onset No Information Payers Payer name Insurance type Covered democrat ID Authoriza tion(s) Medicaid [facility] [id number] Social History Type Description Quantity Date Captured Comments Sex Male Smoking Status No Information Chief Complaint And Reason For Visit No Information Reason For Referral Reason For Referral No Information History Of Present Illness Encounter Date Complaint History Of Prese nt Illness No Information Functional Status Date Functional Assessmen t No Information Instructions Date Instruction Additional Infor mation No Information Assessments Type Assessment Date No Information Patient Care Teams Name Effective Dates (start - stop) Status Members No Information
--- OUTSIDE RECORDS SUMMARY | 2024-06-15 17:42 | XMS_ITS | Clinical Summary ---
Author Organization [email or web address] Address [address] [place] [address] Care Team Providers Care Healthcare Manager Name Role Phone Louis Hewitt MD Primary Care Provider [phone] Source Comments [email or web address],non-owned Affiliates and Associated Physician Practices is amultiple site organization consisting of ambulatory clinics and hospital sitesin [place], [place], [place] and [place]. This disclosure is being madepursuant to the Care Everywhere program and may not contain all information available regarding this patient. Last updated 17.[email or web address] Allergies Active Allergy Reactions Criticality Noted Date Comments Ciprofloxacin Rash,Fever Medium 08/26/2018 Medications * Be aware that medications may not be up to date on this document. Alwaysverify current medications with the patient. Medication Sig Dispensed Refills Start Date End Date Status Metoprolol Succinate 25 MG CS24 Take 25 mg by mouth as needed Active ALPRAZolam (XANAX) 1 MG tablet Take 1 mg by mouth 3 times daily as needed for Anxiety Active HYDROcodone-acetaminop hen (NORCO) 10-325 MG tablet Take 1 tablet by mouth every 6 hours as needed for Pain (Every 4-6 hours. Not to exceed 5 pills in 24 hours.) Active apixaban (ELIQUIS) 5 MG tablet Take 5 mg by mouth 2 times daily 11/17/2019 Active albuterol HFA (PROVENTIL; VENTOLIN; PROAIR) 108 (90 Base) MCG/ACT inhaler ProAir HFA 90 mcg/actuation aerosol inhaler Active DULoxetine (CYMBALTA) 60 MG capsule 60 mg once daily 04/27/2020 Activ e cyclobenzaprine (FLEXERIL) 5 MG tablet Take 5 mg by mouth at bedtime 05/04/2021 Active naloxone HCl (NARCAN) 4 MG/0.1ML nasal spray Narcan 4 mg/actuation nasal spray Active Active Problems No known active problems Social History Tobacco Use Types Packs/Day Years Used Date Smoking Tobacco: Never Smokeless Tobacco: Never AUDIT-C Answer Date Recorded Q1: How often do you have a drink containing alc ohol? Never 08/31/2021 Average Number of Drinks Not on file 022 Frequency of Binge Drinking Not on file 10/2021 Sex and Gender Information Value Date Recorded Sex Assigned at Not on file Gender Identity Not on file Sexual Orientation Not on file Last Filed Vital Signs Vital Sign Reading Time Taken Comments Blood Pressure 108/81 08/31/2021 3:45 PM CDT Pulse 71 08/31/2021 3:45 PM CDT Temperature 36.6 C (97.8 F) 08/31/2021 3:43 PM CDT Respiratory Rate 18 08/31/2021 3:45 PM CDT Oxygen Saturation 98% 08/31/2021 3:45 PM CDT Inhaled Oxygen Concentration - - Weight 66.3 kg (146 lb 3.2 oz) 08/31/2021 1:44 P M CDT Height 165.1 cm (5' 5 ) 08/31/2021 1:44 PM CDT Body Mass Index 24.33 08/31/2021 1:44 PM CDT Plan of Treatment Health Maintenance Due Date Last Done Comments COLOGUARD (AGES 45-75) - COL ON CA SCREENING 1964 COLON MONITORING 1964 COLONOSCOPY - COLON CA SCREENING 1964 CT COLONOGRAPHY - COLON CA SCREENING 1964 Colorectal Cancer Screening 1964 FIT - COLON CA SCREENING 1964 FLEX SIG - COLON CA SCREENING 1964 LIPID TESTING 1964 MEDICARE AWV 12 MONTHS 1964 HIV SCREENING 09/12/1979 HEPATITIS C SCREENING 09/07/1982 DTAP/TDAP/TD VACCINES (1 - Tdap) 09/12/1983 HEPATITIS B VACCINE (1 of 3 - 19+ 3-dose series) 09/12/1983 PNEUMOCOCCAL VACCINE 50+ (1 of 1 - PCV) 2014 ZOSTER VACCINE (1 of 2) 2014 COVID-19 VACCINE ( - 2023-2 5 season) 2023 INFLUENZA VACCINE (#1) 2023 DEPRESSION SCREENING 03/26/2024 HIB VACCINE Aged Out No longer eligi ble based on patient's age to complete this topic HPV VACCINE Aged Out No longer eligi ble based on patient's age to complete this topic MENINGOCOCCAL (Group B) VACC INE SHARED DECISION-MAKING Aged Out No longer eligibl e based on patient's age to complete this topic MENINGOCOCCAL GROUPS A/C/Y/W VACCINE Aged Out No longer eligible b ased on patient's age to complete this topic PNEUMOCOCCAL VACCINE Aged Out No long er eligible based on patient's age to complete this topic Care Teams Healthcare Manager Relationship Specialty Start Date End Date Louis Hewitt MD [address] [place] [address] [facility] - General 08/26/18
--- OUTSIDE RECORDS SUMMARY | 2024-06-15 17:42 | XMS_ITS | Encounter Summary ---
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
--- OUTSIDE RECORDS SUMMARY | 2024-06-15 17:42 | XMS_ITS | Encounter Summary ---
Author Organization [facility] Address [address] [place] [address] Phone Care Team Providers Care Manager Employee Benefits Name Role Phone Louis Hewitt MD Primary Care Provider [phone] Encounter Details Date Type Department Care Team (Late st Contact Info) Description 07/18/2023 Orders Only [facility] Scanning, Provider Social History Tobacco Use Types Packs/Day Years Used Date Smoking Tobacco: Never Smokeless Tobacco: Never Sex and Gender Information Value Date Recorded Sex Assigned at Not on file 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 Gender Identity Not on file Sexual Orientation Not on file documented as of this encounter Plan of Treatment Not on file documented as of this encounter Procedures Procedure Name Priority Date/Time Associated Diagnosis Comments SCAN - LABS 07/18/2023 documented in this encounter Results * SCAN - LABS (07/18/2023) us Provider Scanning Edited Result - Final documented in this encounter Visit Diagnoses Not on filedocumented in this encounter Care Teams Manager Employee Benefits Relationship Specialty Start Date End Date Louis Hewitt MD PCP - General Family Medicine 01/12/20 documented as of this encounter
--- OUTSIDE RECORDS SUMMARY | 2024-06-15 17:42 | XMS_ITS | Clinical Summary ---
Author Organization [facility] Address [address] [place] [address] Care Team Providers Care Specialties Operator Name Role Phone Louis Hewitt MD Primary Care Provider [phone] Allergies Active Allergy Reactions Criticality Noted Date Comments Ciprofloxacin Fever,Rash Medium 08/26/2018 Medications ALPRAZolam (XANAX) 1 mg tablet Take 1 tablet (1 mg total) by mouth 3 (three) times a day as needed Active Eliquis 5 mg tablet Take 1 tablet (5 mg total) by mouth 2 (two) times a day 05/10/[address] (CYMBALTA) 60 mg capsule 60 mg daily 04/27/2020 Active HYDROcodone-acet aminophen (NORCO) 10-325 mg per tablet Take 1 tablet by mouth every 6 (six) hours as needed Active magnesium oxide (MAG-OX) 400 mg (241.3 mg elemental magnesium) tablet Take by mouth daily 03/26/1969 Active albuterol 1.25 mg/3 mL nebulizer solution as needed 03/10/2019 Active Active Problems Problem Noted Date Diagnosed Date BMI 25.0-25.9,adult 11/26/2020 NAFLD (nonalcoholic fatty liver disease) 021 Depressive episode 05/14/2020 Paroxysmal atrial fibrillation 05/14/2020 Essential hypertension 05/14/2020 Resolved Problems Problem Noted Date Diagnosed Date Resolved Date BMI 27.0-27.9,adult 05/14/2020 11/27/19 21 Encounters Date Type Department Care Team Description 03/23/2024 Documentation [facility] G[facility]ology [address] [place] [id number] Dominga Chew RN 03/20/2024 Orders Only [facility] Scanning, Provider 03/17/2024 4:40 PM METAL ROOFER - 03/17/2024 11:59 PM METAL ROOFER Hospital Encounter [facility] [address] [place] [address] Diagnosis unknown; Umbilical hernia without obstruction or gangrene Discharge Disposition: Discharge to home or self care from Last 3 Months Surgical History Surgery Date Site/Laterality Comments ABLATION 03/26/2015 - 03/25/2016 APPENDECTOMY HERNIA REPAIR 03/26/2015 - 03/25/2016 VASECTOMY Medical History Medical History Date Comments A-fib (HCC) Enlarged prostate COPD (chronic obstructive pulmonary disease) (HC C) Anxiety Depression Hypertension Arthritis Family History Medical History Relation Name Comments No Known Problems Father Heart failure Mother Liver disease Mother Relation Name Status Comments Father Mother Social History Tobacco Use Types Packs/Day Years Used Date Smoking Tobacco: Never Smokeless Tobacco: Never Tobacco Cessation:Counseling Given: Not Answered Sex and Gender Information Value Date Recorded Sex Assigned at Not on file Legal Sex Male 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 Gender Identity Not on file Sexual Orientation Not on file Obstetrics History Last Filed Vital Signs Vital Sign Reading Time Taken Comments Blood Pressure 109/77 01/04/2024 9:00 AM CDT Pulse 72 01/04/2024 9:00 AM CDT Temperature 36.4 C (97.6 F) 01/04/2024 9:00 AM CDT Respiratory Rate 16 01/04/2024 9:00 AM CDT Oxygen Saturation 100% 01/04/2024 9:00 AM CDT Inhaled Oxygen Concentration - - Weight 67.3 kg (148 lb 6.4 oz) 01/04/2024 9:00 A M CDT Height 167.6 cm (5' 6 ) 01/04/2024 9:00 AM CDT Body Mass Index 23.95 01/04/2024 9:00 AM CDT Plan of Treatment Health Maintenance Due Date Last Done Comments Colon Cancer Screening-Colonoscopy 1964 Depression Screening 1964 Prostate Cancer Screening-PSA 1964 DTaP/Tdap/Td Vaccine (1 - Tdap) 09/12/1975 Hepatitis B Screening 1982 Regular Well Visit/Exam 18-64 1982 Pneumococcal vaccine <65 (1 of 2 - PCV) 09/12/1983 Zoster Vaccine (1 of 2) 2014 Influenza Vaccine (#1) 2023 Hepatitis C Screening Completed 05/14/2020 Procedures Procedure Name Priority Date/Time Associated Diagnosis Comments GI - RESULT 03/20/2024 1:49 PM METAL ROOFER MR BODY OUTSIDE CONSULT Routine 03/17/2024 4:40 PM METAL ROOFER Diagnosis unknown HEPATITIS C ANTIBODY Routine 05/14/2020 11:46 AM METAL ROOFER Steatosis of liver from Last 3 Months or Most Recently Relevant to Health Maintenance Results * GI - RESULT (03/20/2024 1:49 PM METAL ROOFER) Anatomical Region Laterality Modality Other us Provider Scanning Final Result * MR Body Outside Consult (03/17/2024 4:40 PM METAL ROOFER) Anatomical Region Laterality Modality Body N/A Magnetic Resonan ce 03/18/2024 8:47 AM METAL ROOFER Impressions 03/18/2024 2:47 PM METAL ROOFER No suspicious liver lesion. The findings, conclusions and recommendations within this report do not replace the initial findings, conclusions and recommendations made at the facility where the study was performed based upon the imaging and clinical condition at that time. Comparison with the prior report and clinical history is necessary. The provided images may or may not represent the [place] source data set and thus may contain changes that may lower the accuracy of this second-opinion interpretation. Dictated by: Aakash Crockett MD The radiology attending physician has personally reviewed this study, and had reviewed and/or edited this written report and agrees with it. Electronically signed by: Miguel Xavier M.D. Narrative 03/18/2024 2:47 PM METAL ROOFER EXAMINATION: RADIOLOGY CONSULTATION ON OUTSIDE IMAGING STUDY STUDY INITIALLY PERFORMED: 03/10/2024 at [facility]. TYPE OF STUDY: Multiple MR images of the abdomen without contrast are provided at the time of this interpretation. CONTRAST ROUTE: No contrast was administered. The protocol was adequate to address the clinical question. The outside final report was not available at the time of this second opinion interpretation. TYPE OF CONSULTATION: Consult on outside imaging study with images submitted through Outside Image Sharing Service DATE OF CONSULTATION: 03/18/2024 8:27 AM HISTORY: Liver cysts COMPARISON: None available. FINDINGS: Liver: No surface nodularity. - Bile ducts: No intra or extrahepatic biliary ductal dilation. - Focal liver lesions: No suspicious liver lesion. 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 No hydronephrosis. Other Findings: Atherosclerotic calcifications of the aorta. Abdominal aorta is normal in caliber. No abdominal lymphadenopathy. Lung bases are clear. No distended loops of bowel. Procedure Note Miguel Xavier MD - 03/18/2024 EXAMINATION: RADIOLOGY CONSULTATION ON OUTSIDE IMAGING STUDY STUDY INITIALLY PERFORMED: 03/10/2024 at [facility]. TYPE OF STUDY: Multiple MR images of the abdomen without contrast are provided at the time of this interpretation. CONTRAST ROUTE: No contrast was administered. The protocol was adequate to address the clinical question. The outside final report was not available at the time of this second opinion interpretation. TYPE OF CONSULTATION: Consult on outside imaging study with images submitted through Outside Image Sharing Service DATE OF CONSULTATION: 03/18/2024 8:27 AM HISTORY: Liver cysts COMPARISON: None available. FINDINGS: Liver: No surface nodularity. - Bile ducts: No intra or extrahepatic biliary ductal dilation. - Focal liver lesions: No suspicious liver lesion. 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 No hydronephrosis. Other Findings: Atherosclerotic calcifications of the aorta. Abdominal aorta is normal in caliber. No abdominal lymphadenopathy. Lung bases are clear. No distended loops of bowel. IMPRESSION: No suspicious liver lesion. The findings, conclusions and recommendations within this report do not replace the initial findings, conclusions and recommendations made at the facility where the study was performed based upon the imaging and clinical condition at that time. Comparison with the prior report and clinical history is necessary. The provided images may or may not represent the [place] source data set and thus may contain changes that may lower the accuracy of this second-opinion interpretation. Dictated by: Aakash Crockett MD The radiology attending physician has personally reviewed this study, and had reviewed and/or edited this written report and agrees with it. Electronically signed by: Miguel Xavier M.D. Star Pierson MD IMG MRI PROCEDURES Final Result * Hepatitis C antibody (05/14/2020 11:46 AM METAL ROOFER) Hep C Ab Nonreactive Nonreactive [facility] Comment:Antibodies to HCV no t detected. Does NOT exclude the possibility of recent exposure to HCV. Blood specimen (specimen) 05/14/2020 11:46 AM METAL ROOFER 05/14/2020 1:57 PM METAL ROOFER Star Pierson MD LAB MICROBIOLOGY - GENER AL ORDERABLES Edited Result - Final Performing Organization Address City/State/[facility] Co de Phone Number [facility] [address] [facility] Department [place] [address] from Last 3 Months or Most Recently Relevant to Health Maintenance Insurance [employer] MEDICARE ADVANTAGE MEDICARE IDPA MANAGED MEDICARE GENERIC RISK OTHER [facility] MEDICARE ADVANTAGE Care Teams Specialties Operator Relationship Specialty Start Date End Date Louis Hewitt MD PCP - General Family Medicine 01/12/20
--- OUTSIDE RECORDS SUMMARY | 2024-06-15 17:42 | XMS_ITS | CONTINUITY OF CARE DOCUMENT ---
Author Name natan yeelopez Address Unknown Organization [facility] Address [address] [place] [address] Phone [phone] Care Team Providers Care Publications Editor Name Role Phone Obey SORTO, Gretchen Unavailable BRITTNEY SORTO, ENOC F Unavailable BRITTNEY SORTO, ENOC F Unavailable [phone] PROBLEMS Condition Status Date Provider Notes Atrial Fibrillation, s/p CV on Eliquis , has a l peristant superior vena cava active Gretchen Barnhart MD Shortness of breath--echo ef 52%, mild lvh, severe R and LAE, mild mr, 05/2023 active Gretchen Barnhart MD Sleep apnea, obstructive, mild active Gretchen Barnhart MD Fatigue active Gretchen Barnhart MD CAD ca on lad on ct scan, nl stress nuc 11/2021 active Gretchen Barnhart MD Current use of Warfarin - INR per [facility] completed - Gretchen Barnhart MD Syncope active Brian Dunn MD Obesity completed - Gretchen Barnhart MD Preop cardiovasc. examination completed - Gretchen Barnhart MD Chronic back pain, sciatica active Gretchen hollins MD Hx of Hernia active Gretchen Barnhart MD Foot pain, swelling, right active Gretchen ames MD Hypotension active Gretchen Barnhart MD ENCOUNTERS Date Type Provider Location Encounter Diag nosis - In-person encounter Office Visit Gretchen Barnhart MD [facility] - In-person encounter Office Visit Gretchen Barnhart MD [facility] Hypotension - In-person encounter Office Visit Gretchen Barnhart MD [facility] Foot pain, swelling, right - In-person encounter Office Visit Gretchen Barnhart MD [facility] ObesityHx of Hernia - In-person encounter Office Visit Gretchen Barnhart MD [facility] - In-person encounter Office Visit Gretchen Barnhart MD [facility] Shortness of breath--echo ef 52%, mild lvh, severe R and LAE, mild mr, AD ca on lad on ct scan, nl stress nuc hronic back pain, sciatica - In-person encounter Office Visit Gretchen Barnhart MD [facility] Atrial Fibrillation, s/p CV on Eliquis , has a l peristant superior vena cavaCurrent use of Warfarin - INR per [facility] cardiovasc. examination - In-person encounter Office Visit Erica Anderson MD [facility] - In-person encounter Office Visit Erica Anderson MD [facility] Atrial Fibrillation, s/p CV on Eliquis , has a l peristant superior vena cava - In-person encounter Office Visit Gretchen Barnhart MD [facility] - In-person encounter Office Visit Erica Anderson MD [facility] - In-person encounter Office Visit Erica Anderson MD [facility] - In-person encounter Office Visit Erica Anderson MD [facility] - In-person encounter Office Visit Erica Anderson MD [facility] - In-person encounter Office Visit Erica Anderson MD [facility] - In-person encounter Office Visit Erica Anderson MD [facility] - In-person encounter Office Visit Brian Dunn MD [facility] - In-person encounter Office Visit Gretchen Barnhart MD [facility] - In-person encounter Office Visit Brian Dunn MD [facility] - In-person encounter Office Visit Brian Dunn MD [facility] Atrial Fibrillation, s/p CV on Eliquis , has a l peristant superior vena cava - In-person encounter Office Visit Brian Dunn MD [facility] Atrial Fibrillation, s/p CV on Eliquis , has a l peristant superior vena cavaSyncope - In-person encounter Office Visit Gretchen Barnhart MD [facility] Atrial Fibrillation, s/p CV on Eliquis , has a l peristant superior vena cavaCAD ca on lad on ct scan, nl stress nuc 11/2021 - In-person encounter Office Visit Gretchen Barnhart MD [facility] Shortness of breath--echo ef 52%, mild lvh, severe R and LAE, mild mr, 05/2023Sleep apnea, obstructive, mildFatigueCAD ca on lad on ct scan, nl stress nuc 11/2021 VITAL SIGNS Date Observation Value Provider Body Mass Index (Ratio) 23.89 kg/m2 Justyn Barnhart MD blood pressure, cuff size regular Eliseo Stovall blood pressure, diastolic 78 mm[Hg] Eliseo Stovall blood pressure, systolic 110 mm[Hg] Glenn Stovall oxygen saturation, oximetry 97 % Goldie [place] respiratory rate E&M 12 /min Goldie Stovall pulse rate 82 /min Goldie [place] weight E&M 148 [lb_av] Goldie Stovall height E&M 66 [in_i] Goldie [place] Body Mass Index (Ratio) 25.82 kg/m2 Justyn Barnhart MD blood pressure, diastolic 71 mm[Hg] [facility], systolic 91 mm[Hg] Liz z [facility] oxygen saturation, oximetry 96 % Yane [place] pulse rate 58 /min [facility] respiratory rate E&M 18 /min Yane Adamson illetom weight E&M 160 [lb_av] [facility] height E&M 66 [in_i] [facility] Body Mass Index (Ratio) 25.82 kg/m2 Justyn Barnhart MD blood pressure, cuff size regular Valentin [facility] blood pressure, diastolic 73 mm[Hg] Valentin et blood pressure, systolic 101 mm[Hg] [facility] pulse rate 59 /min Alin respiratory rate E&M 12 /min Alin oxygen saturation, oximetry 98 % Alin weight E&M 160 [lb_av] Alin er y height E&M 66 [in_i] Alni y Body Mass Index (Ratio) 25.98 kg/m2 Justyn Barnhart MD blood pressure, diastolic 82 mm[Hg] Krissy [employer] blood pressure, systolic 100 mm[Hg] Annabelle Jarrettogmilind blood pressure, diastolic 82 mm[Hg] [facility] howard Hahn blood pressure, systolic 100 mm[Hg] Bret Hahn oxygen saturation, oximetry 99 % Neelima Hahn pulse rate 88 /min Neelima Pick[place] n weight E&M 161 [lb_av] Neelima [place] n respiratory rate E&M 16 /min Jeffry Hahn blood pressure, cuff size large [facility] howard Foleyman height E&M 66 [in_i] Neelima Pickens n Body Mass Index (Ratio) 24.53 kg/m2 Justyn Barnhart MD blood pressure, cuff size large Tereso rri Nicuenejef blood pressure, diastolic 100 mm[Hg] Tereso rri Nicuenenfelder blood pressure, systolic 124 mm[Hg] Lara ri Gilmar oxygen saturation, oximetry 98 % Annetta Gilmar respiratory rate E&M 16 /min Annetta G sdenenfeldrosmery pulse rate 98 /min Annetta Yadiel lder weight E&M 152 [lb_av] Annetta Selmanenfe lder height E&M 66 [in_i] Annetta Selmanenfe lder Body Mass Index (Ratio) 25.08 kg/m2 Justyn Barnhart MD blood pressure, cuff size regular St chacorta Jade blood pressure, diastolic 97 mm[Hg] acjonnathan Jade blood pressure, systolic 120 mm[Hg] Kesha Jade oxygen saturation, oximetry 96 % Danielle Jade respiratory rate E&M 18 /min Danielle alonso pulse rate 64 /min Danielle Jade weight E&M 155.4 [lb_av] Danielle Jade height E&M 66 [in_i] Danielle Jade Body Mass Index (Ratio) 23.89 kg/m2 Justyn Barnhart MD blood pressure, diastolic 92 mm[Hg] Michelle gutierres Hernandez blood pressure, systolic 116 mm[Hg] Jean Paul figueroa Hernandez oxygen saturation, oximetry 97 % Marina David pulse rate 86 /min Marina Isma palacios weight E&M 148 [lb_av] Marina Isma palacios respiratory rate E&M 16 /min Nay aden [place] blood pressure, cuff size large Michelle gutierres Hernandez height E&M 66 [in_i] Marina Isma palacios Body Mass Index (Ratio) 28.08 kg/m2 Daryl Anderson MD pulse rate 69 /min [facility] blood pressure, diastolic 97 mm[Hg] To nsha Hernandez blood pressure, systolic 138 mm[Hg] Ton [facility] oxygen saturation, oximetry 97 % [facility] Hernandez respiratory rate E&M 16 /min [facility] Hernandez weight E&M 174 [lb_av] Tons Hernandez height E&M 66 [in_i] [facility] Hernandez Body Mass Index (Ratio) 26.50 kg/m2 Daryl Anderson MD blood pressure, diastolic 80 mm[Hg] Joanna Barboza blood pressure, systolic 113 mm[Hg] Marybeth Peppermelanie Barboza oxygen saturation, oximetry 98 % Norma Barboza respiratory rate E&M 18 /min Cathryn Barboza pulse rate 79 /min Norma staton weight E&M 164.2 [lb_av] Norma willett height E&M 66 [in_i] Norma staton Body Mass Index (Ratio) 28.57 kg/m2 Justyn Barnhart MD blood pressure, cuff size regular Cy jaskaran Benson blood pressure, diastolic 80 mm[Hg] Cy ntjanneta Benson blood pressure, systolic 130 mm[Hg] Belen julia Benson oxygen saturation, oximetry 96 % Estefanijulia Benson respiratory rate E&M 16 /min Estefani Benson pulse rate 93 /min Estefani Campbel l weight E&M 177 [lb_av] Estefani Campbel l height E&M 66 [in_i] Estefani Campbel l Body Mass Index (Ratio) 27.76 kg/m2 Daryl Anderson MD blood pressure, cuff size regular Cy jaskaran Benson blood pressure, diastolic 74 mm[Hg] Cy jaskaran Benson blood pressure, systolic 128 mm[Hg] Belen julia Benson oxygen saturation, oximetry 98 % Estefanijulia Benson respiratory rate E&M 16 /min Estefanijulia Benson pulse rate 100 /min Estefani Mario Albertobel l height E&M 66 [in_i] Estefani Campbel l weight E&M 172 [lb_av] Estefani Campbel l Body Mass Index (Ratio) 30.50 kg/m2 José Miguel Plur blood pressure, cuff size regular Cy jaskaran Benson blood pressure, diastolic 76 mm[Hg] Cy ntjanneta Benson blood pressure, systolic 130 mm[Hg] Belen julia Benson oxygen saturation, oximetry 96 % Estefani Benson respiratory rate E&M 16 /min Estefani Benson pulse rate 88 /min Estefani Campbel l weight E&M 189 [lb_av] Estefani Campbel l height E&M 66 [in_i] Estefani Campbel l Body Mass Index (Ratio) 31.63 kg/m2 José Miguel Plur blood pressure, diastolic 94 mm[Hg] Joanna Barboza blood pressure, systolic 126 mm[Hg] Marybeth Barboza oxygen saturation, oximetry 95 % Norma Barboza respiratory rate E&M 18 /min Cathryn Barboza pulse rate 80 /min Norma Phillip nstianna weight E&M 196 [lb_av] Norma Phillip nson height E&M 66 [in_i] Norma Phillip nson Body Mass Index (Ratio) 29.70 kg/m2 Daryl Anderson MD blood pressure, diastolic 72 mm[Hg] Da mya Celsa blood pressure, systolic 106 mm[Hg] Dac ia Celsa oxygen saturation, oximetry 97 % Kalie Celsa respiratory rate E&M 16 /min Kalie V oss pulse rate 78 /min Kalie Celsa weight E&M 184 [lb_av] Kalie Celsa height E&M 66 [in_i] Kalie Celsa Body Mass Index (Ratio) 29.53 kg/m2 Irma brendakeiko Sanchez blood pressure, diastolic 80 mm[Hg] Da mya Celsa blood pressure, systolic 122 mm[Hg] Dac ia Celsa oxygen saturation, oximetry 94 % Kalie Celsa respiratory rate E&M 16 /min Kalie V oss pulse rate 62 /min Kalie Celsa weight E&M 183 [lb_av] Kalie Celsa height E&M 66 [in_i] Kalie Celsa Body Mass Index (Ratio) 29.40 kg/m2 Daryl Anderson MD blood pressure, diastolic 100 mm[Hg] Joanna Barboza blood pressure, systolic 135 mm[Hg] Marybeth Barboza oxygen saturation, oximetry 93 % Norma Barboza respiratory rate E&M 18 /min Cathryn Barboza pulse rate 87 /min Norma staton weight E&M 182.2 [lb_av] Norma willett height E&M 66 [in_i] Norma staton Body Mass Index (Ratio) 30.18 kg/m2 Dionte Dunn MD blood pressure, diastolic 70 mm[Hg] Kr isrigo Lanny blood pressure, systolic 120 mm[Hg] Rc [place] oxygen saturation, oximetry 97 % Cat Rock[place] respiratory rate E&M 16 /min Cat Lanny pulse rate 71 /min Cat Lanny blood pressure, cuff size regular Sajan [place] height E&M 66 [in_i] Cat Rock[place] weight E&M 187 [lb_av] Cat [place] Body Mass Index (Ratio) 30.50 kg/m2 Justyn Barnhart MD blood pressure, cuff size regular Tereso ericksoni Gilmar blood pressure, diastolic 82 mm[Hg] Tereso rri Gilmar blood pressure, systolic 152 mm[Hg] Lara Schafer oxygen saturation, oximetry 96 % Annetta Schafer respiratory rate E&M 18 /min Annetta denis pulse rate 89 /min Annetta Cotto lder weight E&M 189 [lb_av] Annetta Cotto lder height E&M 66 [in_i] Annetta Cotto lder Body Mass Index (Ratio) 28.44 kg/m2 Dionte Dunn MD blood pressure, diastolic 94 mm[Hg] Joanna Barboza blood pressure, systolic 136 mm[Hg] Marybeth Barboza oxygen saturation, oximetry 97 % Norma Barboza respiratory rate E&M 18 /min Cathryn Barboza pulse rate 69 /min Norma staton weight E&M 176.2 [lb_av] Norma willett height E&M 66 [in_i] Norma staton Body Mass Index (Ratio) 30.82 kg/m2 José Miguel pennie [facility] blood pressure, cuff size regular rri Gilmar blood pressure, diastolic 115 mm[Hg] Tereso rri Gilmar blood pressure, systolic 162 mm[Hg] Lara Schafer oxygen saturation, oximetry 97 % Annetta Schafer respiratory rate E&M 16 /min Annetta denis pulse rate 70 /min Annetta Cotto er weight E&M 191 [lb_av] Annetta Cotto er height E&M 66 [in_i] Annetta Siddharthe er Body Mass Index (Ratio) 29.53 kg/m2 José Miguel casper [facility] blood pressure, resting No Ruiz ty [place] blood pressure, diastolic 72 mm[Hg] Kr isty Lanny blood pressure, systolic 130 mm[Hg] Kri sty Lanny pulse rate 102 /min Cat Lanny respiratory rate E&M 17 /min Cat [place] oxygen saturation, oximetry 97 % Act Lanny blood pressure, cuff size regular Kr isty [place] weight E&M 183 [lb_av] Cat [place] height E&M 66 [in_i] Cat [place] blood pressure, diastolic 98 mm[Hg] Da mya Celsa blood pressure, systolic 124 mm[Hg] Dac ia Celsa height E&M 66 [in_i] Kalie Celsa height in centimeters E&M 167.64 cm Da mya Iona blood pressure, diastolic 92 mm[Hg] Me leandra Silva blood pressure, systolic 129 mm[Hg] Padma bernstein Silva pulse rate 88 /min Haley Silva oxygen saturation, oximetry 96 % Haley Silva respiratory rate E&M 15 /min Haley Silva Body Mass Index (Ratio) 30.50 kg/m2 Sherlyn barrios [facility] weight E&M 189 [lb_av] Haley Silva blood pressure, diastolic 95 mm[Hg] Me leandra Silva blood pressure, systolic 144 mm[Hg] Padma bernstein Silva pulse rate 84 /min Haley Silva oxygen saturation, oximetry 96 % Haley Silva respiratory rate E&M 15 /min Haley Silva Body Mass Index (Ratio) 31.95 kg/m2 Sherlyn barrios [facility] weight E&M 198 [lb_av] Haley Silva height E&M 66 [in_i] Haley Silva ALLERGIES Allergy Name Onset Date Reaction Criticality Status CIPRO Low Criticality active RESULTS Date Observation Value Provider Reference Range Interpretation Location coagulation managed by Martin Kelley RN international normalized ratio (INR) 3.4 Tonsha Hernandez Normal prothrombin time (patient) 40.7 s Tonsha Hernandez coagulation managed by Martin Kelley RN international normalized ratio (INR) 2.1 Estefani Benson Normal prothrombin time (patient) 25.0 s Estefani Benson coagulation managed by Martin Kelley RN international normalized ratio (INR) 1.8 Estefani Benson Normal prothrombin time (patient) 21.1 s Estefani Benson coagulation managed by Martin Kelley RN international normalized ratio (INR) 2.0 Estefani Benson Normal prothrombin time (patient) 23.5 s Estefani Benson coagulation managed by Martin Kelley RN international normalized ratio (INR) 3.2 Tonsha Hernandez Normal prothrombin time (patient) 38.7 s Tonsha Hernandez coagulation managed by Martin Kelley RN prothrombin time (patient) 34.5 s Lainey Block international normalized ratio (INR) 2.9 Lainey Block Normal coagulation managed by Martin Kelley RN international normalized ratio (INR) 1.8 Tonsha Hernandez Normal prothrombin time (patient) 21.2 s Tonsha Hernandez coagulation managed by Martin Kelley RN international normalized ratio (INR) 2.9 Estefanijulia Benson Normal prothrombin time (patient) 34.6 s Estefani Benson coagulation managed by Martin Kelley RN international normalized ratio (INR) 2.2 Estefani Benson Normal prothrombin time (patient) 25.9 s Estefani Benson coagulation managed by Martin Kelley RN international normalized ratio (INR) 1.4 Tonsha Hernandez Normal prothrombin time (patient) 16.8 s Tonsha Hernandez coagulation managed by Martin Kelley RN prothrombin time (patient) 23.0 s Tonsha Hernandez international normalized ratio (INR) 1.9 Tonsha Hernandez Normal coagulation managed by Martin Kelley RN international normalized ratio (INR) 1.3 Estefani Benson Normal prothrombin time (patient) 15.5 s Estefani Benson coagulation managed by Martin Kelley RN international normalized ratio (INR) 2.0 Estefani Benson Normal prothrombin time (patient) 23.6 s Estefani Benson coagulation managed by Martin Kelley RN prothrombin time (patient) 22.1 s Cat Rockby international normalized ratio (INR) 1.8 Cat Lanny Normal coagulation managed by Martin Kelley RN international normalized ratio (INR) 1.6 Estefani Benson Normal prothrombin time (patient) 19.2 s Estefani Benson prothrombin time (patient) 20.3 s Crystal Carlos international normalized ratio (INR) 1.7 Crystal Carlos Normal coagulation managed by Martin Kelley RN international normalized ratio (INR) 3.7 [place] Alicia Normal prothrombin time (patient) 44.9 s [place] Alicia coagulation managed by Martin Kelley RN prothrombin time (patient) 26.9 s Crystal Carlos international normalized ratio (INR) 2.2 Crystal Carlos Normal coagulation managed by Martin Kelley RN international normalized ratio (INR) 1.9 Estefani Benson Normal prothrombin time (patient) 22.9 s Estefani Benson coagulation managed by Martin Kelley RN international normalized ratio (INR) 2.2 Estefani Benson Normal prothrombin time (patient) 26.3 s Estefani Benson coagulation managed by Martin Kelley RN international normalized ratio (INR) 1.9 Estefani Benson Normal prothrombin time (patient) 22.4 s Estefani Ebnson coagulation managed by Martin Kelley RN international normalized ratio (INR) 1.7 Estefani Benson Normal prothrombin time (patient) 20.4 s Estefani Benson international normalized ratio (INR) 1.7 Estefani Marcelino Normal prothrombin time (patient) 20.2 s Estefani Benson coagulation managed by Martin Kelley RN international normalized ratio (INR) 1.8 Estefani Benson Normal prothrombin time (patient) 21.1 s Estefanijulia Benson coagulation managed by Martin Kelley RN international normalized ratio (INR) 3.0 Estefani Marcelino Normal prothrombin time (patient) 35.7 s Estefanijulia Benson coagulation managed by Martin Kelley RN international normalized ratio (INR) 1.6 Estefani Marcelino Normal prothrombin time (patient) 19.7 s Estefani Benson coagulation managed by Martin Kelley RN international normalized ratio (INR) 2.3 Kalie Celsa Normal prothrombin time (patient) 28.0 s Kalie Celsa coagulation managed by Martin Kelley RN international normalized ratio (INR) 2.3 Annetta Geremiaser Normal prothrombin time (patient) 27.3 s Annetta Geremiaser coagulation managed by Martin Kelley RN international normalized ratio (INR) 2.7 [place] Alicia Normal prothrombin time (patient) 32.0 s [place] Alicia coagulation managed by Rebecca Mcadams international normalized ratio (INR) 1.9 Norma Barboza Normal prothrombin time (patient) 23.4 s Norma Barboza coagulation managed by Martin Kelley RN international normalized ratio (INR) 1.9 Martin Kelley RN Normal prothrombin time (patient) 22.7 s Martin Kelley RN coagulation managed by Martin Kelley RN international normalized ratio (INR) 2.5 Kalie Celsa Normal prothrombin time (patient) 29.9 s Kalie Celsa coagulation managed by Martin Kelley RN international normalized ratio (INR) 2.7 Norma Barboza Normal prothrombin time (patient) 32.3 s Norma Barboza coagulation managed by Martin Kelley RN international normalized ratio (INR) 1.9 Annetta Gruenenfelder Normal prothrombin time (patient) 23.0 s Annetta Grdereknepepeer coagulation managed by Martin Kelley RN international normalized ratio (INR) 1.5 Estefani Benson Normal prothrombin time (patient) 18.2 s Estefani Benson coagulation managed by Dominga Riddle international normalized ratio (INR) 2.6 Annetta Gruenepepeer Normal prothrombin time (patient) 31.2 s Annetta Gruenenfelder international normalized ratio (INR) 3.3 Kalie Celsa Normal prothrombin time (patient) 39.6 s Kalie Celsa coagulation managed by Rukhsana Luther RN international normalized ratio (INR) 1.8 Kalie Celsa Normal prothrombin time (patient) 21.5 s Kalie Celsa coagulation managed by Martin Kelley RN international normalized ratio (INR) 1.3 Sia Coppola Normal prothrombin time (patient) 15.9 s Sia Coppola coagulation managed by Martin Kelley RN international normalized ratio (INR) 3.2 Sharon Luther Normal prothrombin time (patient) 38.2 s Sharon Luther coagulation managed by Martin Kelley RN international normalized ratio (INR) 1.6 Kalie Celsa Normal prothrombin time (patient) 18.9 s Kalie Celsa coagulation managed by Martin Kelley RN international normalized ratio (INR) 1.7 Sharon Luther Normal prothrombin time (patient) 19.9 s hSaron Luther coagulation managed by Martin Kelley RN international normalized ratio (INR) 1.8 Kalie Celsa Normal prothrombin time (patient) 21.6 s Kalie Celsa coagulation managed by Martin Kelley RN international normalized ratio (INR) 1.4 Kalie Celsa Normal prothrombin time (patient) 16.3 s Kalie Celsa coagulation managed by Martin Kelley RN international normalized ratio (INR) 1.4 Norma Barboza Normal prothrombin time (patient) 16.2 s Norma Barboza coagulation managed by Martin Kelley RN international normalized ratio (INR) 2.3 Norma Daileyenson Normal prothrombin time (patient) 27.0 s Norma Barboza urea nitrogen/creatin ine ratio, serum 14.4 [employer] - Estimated Glomerular Filtration Rate (calc) 94.6 (?) [employer] 59.0 - chloride, serum 100.4 mmol/L [employer] 98.0 - 107.0 potassium, serum 4.0 mmol/L [employer] 3.5 - 5.1 sodium, serum 141.0 mmol/L [employer] 136.0 - 145.0 creatinine, serum 0.9 mg/dL [employer] 0.7 - 1.2 carbon dioxide, venous blood 31.0 mmol/L [employer] 22.0 - 29.0 High calcium, serum 9.1 mg/dL [employer] 8.6 - 10.2 urea nitrogen, blood 13.0 mg/dL [employer] 6.0 - 20.0 blood glucose, random 95.0 mg/dL [employer] 74.0 - 99.0 coagulation managed by Martin Kelley RN international normalized ratio (INR) 2.4 Kalie Celsa Normal prothrombin time (patient) 28.6 s Kalie Celsa coagulation managed by Martin Kelley RN international normalized ratio (INR) 2.1 Annetta Schafer Normal prothrombin time (patient) 24.9 s Annetta Geremiaser coagulation managed by Sharon Gould RN international normalized ratio (INR) 2.1 Kalie Celsa Normal prothrombin time (patient) 24.6 s Kalie Celsa coagulation managed by Sharon Gould RN international normalized ratio (INR) 1.9 Sharon Gould RN Normal coagulation managed by Martin Kelley RN international normalized ratio (INR) 1.6 Martin Kelley RN Normal prothrombin time (patient) 19.2 s Martin Kelley RN coagulation managed by Martin Kelley RN international normalized ratio (INR) 3.0 Haley Hoffmanann Normal prothrombin time (patient) 35.4 s Haley Silva coagulation managed by Martin Kelley RN international normalized ratio (INR) 2.8 Martin Kelley RN Normal prothrombin time (patient) 33.1 s Martin Kelley RN coagulation managed by Sharon Gould RN international normalized ratio (INR) 2.5 Norma Barboza Normal prothrombin time (patient) 29.8 s Norma Barboza coagulation managed by Martin Kelley RN international normalized ratio (INR) 1.8 Annetta Schafer Normal prothrombin time (patient) 21.7 s Annetta Gruenenfelder coagulation managed by Martin Kelley RN international normalized ratio (INR) 1.8 Annetta Gruenenfelder Normal prothrombin time (patient) 22.2 s Annetta Gruenenfelder coagulation managed by Martin Kelley RN international normalized ratio (INR) 2.3 Haley Silva Normal prothrombin time (patient) 27.9 s Haley Silva coagulation managed by Martin Kelley RN international normalized ratio (INR) 1.9 Annetta Gruenenfelder Normal prothrombin time (patient) 23.3 s Annetta Gruenenfelder coagulation managed by Martin Kelley RN international normalized ratio (INR) 2.2 Haley Silva Normal prothrombin time (patient) 25.9 s Haley Silva coagulation managed by Martin Kelley RN international normalized ratio (INR) 2.2 Haley Silva Normal prothrombin time (patient) 26.4 s Haley Silva coagulation managed by Martin Kelley RN international normalized ratio (INR) 2.4 Norma Barboza Normal prothrombin time (patient) 29.1 s Norma Daileyenson coagulation managed by Martin Kelley RN international normalized ratio (INR) 2.3 Haley Silva Normal prothrombin time (patient) 27.3 s Haley Silva coagulation managed by Martin Kelley RN international normalized ratio (INR) 1.8 Martin Kelley RN Normal prothrombin time (patient) 21.9 s Martin Kelley RN coagulation managed by Martin Kelley RN international normalized ratio (INR) 1.5 Haley Silva Normal prothrombin time (patient) 17.9 s Haley Silva HISTORY OF MEDICATION USE Medication Status Instructions Dates Provider Indications Com ments metoprolol tartrate 50 mg tablet completed Take 1 tablet by mouth twice daily - Gretchen Barnhart MD Eliquis 5 mg tablet active Take 1 tablet by mouth twice a day Annetta Schafer metoprolol succinate 50 mg tablet extended release 24 hr active Take 1 tablet by mouth every night Gretchen Barnhart MD metoprolol tartrate 50 mg tablet completed Take 1 tablet by mouth twice daily - Cornel Juárez Eliquis 5 mg tablet completed Take 1 tablet by mouth twice daily - Annetta Schafer metoprolol tartrate 25 mg tablet completed Take 1 tablet by mouth twice a day - Alin Cordero cyclobenzaprine 15 mg capsule,extended release 24hr completed Take 1 capsule by mouth once a day - Cornel Juárez amiodarone 200 mg tablet completed Take 1 tablet by mouth once a day - Cornel Ahniteshi Eliquis 5 mg tablet completed Take 1 tablet by mouth twice a day - Alin Cordero Eliquis 5 mg tablet completed - Annetta Schafer Eliquis 5 mg tablet completed Take 1 tablet by mouth twice a day - Mitchel Brown magnesium oxide 400 mg (241.3 mg magnesium) tablet active 1 tablet by mouth once a day oCrnel Juárez Paxil 10 mg tablet completed 1 tablet by mouth once a day - Cornel Juárez finasteride 5 mg tablet completed Take 1 tablet by mouth once a day - Cornel Juárez tamsulosin 0.4 mg capsule active Take 1 tablet by mouth once a day Estefani Benson albuterol sulfate 1.25 mg/3 mL solution for nebulization active Take as directed Estefanijulia Benson VENTOLIN HFA 108 (90 BASE) MCG/ACT INHALATION AEROSOL SOLUTION completed 2 puffs every 4-6 hours - Estefanijulia Benson COUMADIN 5 MG ORAL TABLET completed one tab daily EXCEPT on and Th take 1 1/2 tab - Chris Link MD SPIRIVA RESPIMAT 2.5 MCG/ACT INHALATION AEROSOL SOLUTION completed take 2 puffs daily - Estefani Benson FLECAINIDE ACETATE 50 MG ORAL TABLET completed one tablet twice daily - Norma Barboza XARELTO 20 MG ORAL TABLET completed take one tabllet by mouth one daily - Erica Anderson MD ASPIRIN ADULT LOW DOSE 81 MG ORAL TABLET DELAYED RELEASE completed One Tab By Mouth Daily - Cat Ca AMIODARONE HCL 200 MG ORAL TABLET completed One tablet three times daily - Annetta Schafer LISINOPRIL 5 MG ORAL TABLET completed ONE TABLET AT BEDTIME - Norma Barboza MAGNESIUM OXIDE 500 MG ORAL TABS (MAGNESIUM OXIDE) completed Two tablets twice a day - Estefani Benson LASIX 20 MG ORAL TABLET completed as needed - Kalie Celsa COUMADIN 5 MG ORAL TABLET completed 1 1/2 tab Mon through Fri- 1 tab on Sat and Sun - Annetta Schafer COUMADIN 2 MG ORAL TABLET completed 1 tab po on Fri, Sat, and Sun with your evening meal - Martin Kelley RN COUMADIN 3 MG ORAL TABLET completed 1 tab po Sunday through with your evening meal - Martin Kelley RN metoprolol tartrate 50 mg tablet completed TAKE 1 TABLET BY MOUTH TWICE A DAY - Annetta Schafer TIZANIDINE HCL 2 MG ORAL CAPSULE completed twice daily - Cat Ca hydrocodone-acetam inophen 10-325 mg tablet active 1 tablet by mouth every four to six hours as needed Haley Silva alprazolam 1 mg tablet active 1 tablet by mouth Haley Silva COUMADIN 5 MG ORAL TABLET completed HOLD - Meghana Howell SOCIAL HISTORY Date Observation Value Provider passive cigarette sm jojo exposure yes Cornel Adamtatiniki smoking status Never smoker Cornel tatiniki passive cigarette sm jojo exposure yes Cornel tatiniki smoking status Never smoker Cornel tatiniki social history reviewed E&M revi ewed - no changes [facility] m[facility] History: Ming morales has never smoked. Cornel tatiniki passive cigarette sm jojo exposure yes Neelima Hahn smoking status Never smoker Neelima wood social history reviewed E&M revi ewed - no changes required Cornel tatiniki social history E&M S moking History: Ming morales has never smoked. Cornel Juárez social history reviewed E&M revi ewed - no changes required Cornel tatiniki passive cigarette sm jojo exposure yes Annetta Schafer smoking status Never smoker Annetta weaver passive cigarette sm jojo exposure yes Danielle Jade smoking status Never smoker Danielle Jade social history reviewed E&M revi ewed - no changes required Cornel Juárez passive cigarette sm jojo exposure yes Marina Hernandez smoking status Never smoker Marina Mejía social history reviewed E&M revi ewed - no changes required Gretchen Barnhart MD social history reviewed E&M revi ewed - no changes required Erica Anderson MD passive cigarette sm jojo exposure yes Tonsha Hernandez smoking status Never smoker Tonsha Hernandez number of grandchildren Erica Anderson MD social history E&M S moking History: Ming morales has never smoked. Erica Anderson MD social history reviewed E&M revi ewed - no changes required Erica Anderson MD passive cigarette sm jojo exposure yes Norma Barboza smoking status Never smoker Norma Queen aide number of grandchildren Gretchen Barnhart MD social history reviewed E&M revi ewed - no changes required Gretchen Barnhart MD passive cigarette sm jojo exposure yes Estefani Benson smoking status Never smoker Estefani garcia passive cigarette sm jojo exposure yes Estefani Benson smoking status Never smoker Estefani garcia social history E&M S moking History: Ming morales has never smoked. Erica Anderson MD social history reviewed E&M revi ewed - no changes required Erica Anderson MD passive cigarette sm jojo exposure yes Estefani Benson smoking status Never smoker Estefani garcia social history E&M S moking History: Ming morales has never smoked. Erica Anderson MD social history reviewed E&M revi ewed - no changes required Erica Anderson MD passive cigarette sm jojo exposure yes Norma Barboza smoking status Never smoker Norma Queen aide social history reviewed E&M revi ewed - no changes required Erica Anderson MD social history E&M S moking History: Ming morales has never smoked. Erica Anderson MD passive cigarette sm jojo exposure yes Kalie Celsa smoking status Never smoker Kalie Celsa social history reviewed E&M revi ewed - no changes required Erica Anderson MD social history E&M S moking History: Ming morales has never smoked. Erica Anderson MD passive cigarette sm jojo exposure yes Kalie Clesa smoking status Never smoker Kalie Celsa number of grandchildren Erica Anderson MD social history reviewed E&M revi ewed - no changes required Erica Anderson MD social history E&M S moking History: Ming morales has never smoked. Erica Anderson MD passive cigarette sm jojo exposure yes Norma Barboza smoking status Never smoker Norma Lawson passive cigarette sm jojo exposure yes Brian Dunn MD smoking status Never smoker Brian vizcaino MD social history reviewed E&M revi ewed - no changes required Brian Dunn MD social history reviewed E&M revi ewed - no changes required Gretchen Barnhart MD passive cigarette sm jojo exposure yes Annetta Schafer smoking status Never smoker Annetta weaver social history reviewed E&M revi ewed - no changes required Ty Santos passive cigarette sm jojo exposure yes Norma Barboza smoking status Never smoker Norma Lawson social history reviewed E&M revi ewed - no changes required Brian Dunn MD passive cigarette sm jojo exposure yes Annetta Schafer smoking status Never smoker Annetta weaver social history E&M Smoking Histo ry: Ming morales has never smoked. Toni Carvalho social history reviewed E&M revi ewed - no changes required Toni Carvalho passive cigarette sm jojo exposure yes Toni Carvalho number of grandchildren Brian Ca smoking status Never smoker Cat Ca social history reviewed E&M revi ewed - no changes required Haley Silva smoking status Never smoker Haley mireles social history reviewed E&M revi ewed - no changes required Gretchen Barnhart MD smoking status Never smoker Haley mireles FUNCTIONAL STATUS Date Observation Value Provider HRA, CV Assess/Plan, Angina (inactive) Management Plan continue current therapy Cornel Ahmedzai HRA, CV Assess/Plan, Angina (inactive) Management Plan continue current therapy Cornel Ahmedzai HRA, CV Assess/Plan, Angina (inactive) Management Plan continue current therapy Cornel Ahmedzai HRA, CV Assess/Plan, Angina (inactive) Management Plan continue current therapy Cornel Ahmedzai HRA, CV Assess/Plan, Angina (inactive) Management Plan continue current therapy Cornel Ahmedzai HRA, CV Assess/Plan, Angina (inactive) Management Plan continue current therapy Cornel Ahmedzai HRA, CV Assess/Plan, Angina (inactive) Management Plan continue current therapy Cornel Ahmedzai HRA, CV Assess/Plan, Angina (inactive) Management Plan continue current therapy Erica Anderson MD HRA, CV Assess/Plan, Angina (inactive) Management Plan continue current therapy Erica Anderson MD HRA, CV Assess/Plan, Angina (inactive) Management Plan continue current therapy Gretchen Barnhart MD HRA, CV Assess/Plan, Angina (inactive) Management Plan continue current therapy Erica Anderson MD HRA, CV Assess/Plan, Angina (inactive) Management Plan continue current therapy Erica Anderson MD HRA, CV Assess/Plan, Angina (inactive) Management Plan continue current therapy Erica Anderson MD HRA, CV Assess/Plan, Angina (inactive) Management Plan continue current therapy Erica Anderson MD HRA, CV Assess/Plan, Angina (inactive) Management Plan continue current therapy Erica Anderson MD HRA, CV Assess/Plan, Angina (inactive) Management Plan continue current therapy Gretchen Barnhart MD HRA, CV Assess/Plan, Angina (inactive) Management Plan continue current therapy Ty Santos HRA, CV Assess/Plan, Angina (inactive) Management Plan continue current therapy Toni Wilksberg HRA, CV Assess/Plan, Angina (inactive) Management Plan continue current therapy Toni Deven HRA, CV Assess/Plan, Angina (inactive) Management Plan continue current therapy Gretchen Barnhart MD FAMILY HISTORY Family Member Condition Mother Negative FH of Coron vijay Artery Disease INSURANCE PROVIDERS Payer name Policy type / Coverage type [place] [employer] democr[employer] ID [facility] (PPO C-SNP) Medicare [id number] ADVANCE DIRECTIVES Name Date DISCUSSED - NO DECISION MADE TREATMENT PLAN Date Name Performer [id number],S, Cornel Ahmedza i [id number],S, Cornel Ahmedza i [id number],S, Cornel Ahmedza i [id number],S, Cornel Ahmedza i [id number],S, Cornel Ahmedza i [id number],B, Cornel Ahmedza i [id number],S, Cornel Ahmedza i [id number],S, Cornel Ahmedza i [id number],S, Cornel Ahmedza i [id number],S, Cornel Ahmedza i [id number],S, Cornel Ahmedza i [id number],S, Cornel Ahmedza i [id number],S, Cornel Ahmedza i [id number],S, Cornel Ahmedza i [id number],S, Cornel Ahmedza i [id number],S, Cornel Ahmedza i [id number],S, Cornel Ahmedza i [id number],W, Cornle Ahmedza i [id number],S, Cornel Ahmedza i [id number],S, Cornel Ahmedza i [id number],S, Cornel Ahmedza i [id number],S, Cornel Ahmedza i [id number],B, Cornel Ahmedza i [id number],B, Cornel Ahmedza i [id number],W, Cornel Ahmedza i [id number],S, Cornel Ahmedza i [id number],W, Cornel Ahmedza i [id number],S, Cornel Ahmedza i [id number],W, Cornel Ahmedza i Cardiology: H is updated medication list for this problem includes: Metoprolol Succinate 50 Mg Tablet Extended Release 24 Hr (Metoprolol succinate) ..... Take 1 tablet by mouth every night This visit has been a part of the consistent, comprehensive, and ongoing management of the chronic medical condition(s) listed above for the patient. Gretchen Barnhart MD Cardiology Cornel Ahmedzai Cardiology Cornel Ahmedzai Cardiology Cornel Ahmedzai Cardiology: H is updated medication list for this problem includes: Metoprolol Succinate 50 Mg Tablet Extended Release 24 Hr (Metoprolol succinate) ..... Take 1 tablet by mouth every night Cornel Ahmedzai Cardiology: H is updated medication list for this problem includes: Metoprolol Succinate 50 Mg Tablet Extended Release 24 Hr (Metoprolol succinate) ..... Take 1 tablet by mouth every night Cornel Ahmedzai Cardiology Cornel Ahmedzai Telehealth Cornel Ahmedzai Telehealth Cornel Ahmedzai Telehealth Cornel Ahmedzai Telehealth Cornel Ahmedzai Telehealth Cornel Ahmedzai Cardiology Cornel Ahmedzai Cardiology: O rders: M onitor - Telemetry (Mobile Cardiac) ([id number]) Cornel Ahmedzai Cardiology Conrel Ahmedzai Cardiology Cornel Ahmedzai Cardiology Cornel Ahmedzai Cardiology Cornel Ahmedzai Cardiology Cornel Ahmedzai Cardiology Cornel Ahmedzai Cardiology Cornel Ahmedzai Cardiology Cornel Ahmedzai Cardiology Cornel Ahmedzai Cardiology Cornel Ahmedzai Cardiology Cornel Ahmedzai Cardiology Cornel Ahmedzai Cardiology Cornel Ahmedzai Cardiology Cornel Ahmedzai Cardiology Cornel Ahmedzai Cardiology Cornel Ahmedzai Cardiology Cornel Ahmedzai Cardiology Cornel Ahmedzai Cardiology Cornel Ahmedzai Cardiology Cornel Ahmedzai Cardiology Cornel Ahmedzai Cardiology Cornel Ahmedzai Cardiology Cornel Ahmedzai Cardiology Cornel Ahmedzai Cardiology Cornel Ahmedzai Cardiology Cornel Ahmedzai Cardiology Cornel Ahmedzai Cardiology Gretchen Barnhart MD Cardiology Gretchen Barnhart MD Cardiology Cornel Ahmedzacharmaine Cardiology Gretchen Barnhart MD Cardiology Cornel Ahmedzacharmaine Cardiology Gretchen Barnhart MD Cardiology -:Needs t o be seen by Urologist. Issue with bladder thickening Erica Anderson MD Cardiology -: n ot on cpap. Is willing to try it at this time. Will arrnage for a repeat sleep study to be done first. Probably can benefit from titration. Will do after some social stresses are resolved at home. Currently taking care of [place]. 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 W ill defer until he get his urological issues set up. Erica Anderson MD Cardiology -: P rior Hx. arrhythmia and a-fib. His updated medication list for this problem includes: Coumadin 5 Mg Oral Tablet (Warfarin sodium) ..... One tab daily except on tu and thurs take 1 1/2 tab Metoprol Tar 25 Mg Tab Risi (Metoprolol tartrate) ..... Take 1 & 1/2 tablets by mouth twice daily Erica Anderson MD Cardiology -: O n Coumadin rather than Xarelto as he was not able to get Xarelto approved. Erica Anderson MD Cardiology: n ot on cpap. Is willing to try it at this time. Will arrnage for a repeat sleep study to be done first. Probably can benefit from titration. Will do after some social stresses are resolved at home. Currently taking care of merissa. Erica Anderson MD Cardiology:Getting inhalers. See jo-ann [place]. Has COPD. Erica Anderson MD Cardiology: P hajar Hx. arrhythmia and a-fib. Erica Anderson MD Cardiology: O n Coumadin rather than Xarelto as he was not able to get Xarelto approved. His updated medication list for this problem includes: Coumadin 5 Mg Oral Tablet (Warfarin sodium) ..... 1 1/2 tab daily Metoprolol Tartrate 25 Mg Oral Tablet (Metoprolol tartrate) ..... 1.5 pill twice a day Erica Anderson MD Cardiology follow up Gretchen britton MD Cardiology follow up Grecthen britton MD Cardiology follow up Gretchen britton MD Cardiology follow up Gretchen britton MD Cardiology follow up :On Coumadin rather than Xarelto as he was not able to get Xarelto approved. Erica Anderson MD Cardiology follow up : n ot on cpap. Is willing to try it at this time. Will arrnage for a repeat sleep study to be done first. Probably can benefit from titration. Erica Anderson MD Cardiology follow up :Will be able to come off of coumadin 3-5 days prior to dental procedure as apparently it is supposed to be reasonably extensive and hence reduce bleeding complications. a result he is aware that he is an elevated risk foir CVA while off the AC. CAN resume coumadin 3-5 days after. Erica Anderson MD Cardiology follow up : Nucleer Stress test Summary 1 . Normal myocardial perfusion imaging after vasodilator stress with Regadenoson. 2 . Normal left ventricular systolic function with a calculated ejection fraction of 57%. 3 . No obvious significant scintigraphic evidence of myocardial ischemia or scar. Echo 04/25/18 Conclusions: 1 . Technically difficult study due to atrial fibrillation. Mild global left ventricular systolic hypokinesis. N ormal left ventricular size. Normal left ventricular wall thickness. Unable to determine diastolic f unction due to cardiac arrhythmia. Left ventricular ejection fraction is estimated at 45 %. 2 . Moderate enlargement of right ventricle. Normal right ventricular systolic function. 3 . There is trace physiologic mitral valve regurgitation. 4 . There is mild tricuspid regurgitation. Estimated peak pulmonary artery systolic pressure is 36. 5 . There is moderate enlargement of right atrium. Chiari network visualized in right atrium (normal v ariant). 6 . There is severe enlargement of the left atrium. LA volume is 157 mL. The left atrial volume is s everely abnormal. July 10, 2018 P t. has a-fib on coumadin. May need ortho surgery on R knee. He will need to come off of coumadin for surgery. Ideally needs transition to Lovanox since he's chronic a-fib, 1 mg / kg / sq / BID. Lovanox can be held the morning of the surgery. and coumadin to be resumed post-op state for a-fib. REVIEWED PTS INVASIVE AND NONINVASIVE TESTING. PT IS DEEMED AN ACCEPTABLE CANDIDATE FOR THE PLANNED SURGICAL DENTAL PROCEDURE. RECOMMEND TO KEEP HEART RATE IN RANGE OF 60-100BPM AND SYSTOLIC BLOOD PRESSURE IN RANGE OF 110-140MMHG. OK TO USE BETA BLOCKERS/ CALCIUM CHANNEL BLOCKERS/ NITRATES/ AFTERLOAD REDUCING AGENTS TO MAINTAIN THE AFOREMENTIONED HEMODYNAMIC PARAMETERS. RECOMMEND PERIOPERATIVE TELE MONITORING IF PATIENT HAS HISTORY OF ARRHYTHMIA AND A POSTOPERATIVE EKG. Erica Anderson MD Cardiology follow up : P hajar Hx. arrhythmia and a-fib. Erica Anderson MD Cardiology follow up Erica jennings MD Cardiology follow up:Not on xare lto. On coumadin. Erica Anderson MD Cardiology follow up : n ot on cpap Erica Anderson MD Cardiology follow up :04/25/18 Nucleer Stress test Summary 1 . Normal myocardial perfusion imaging after vasodilator stress with Regadenoson. 2 . Normal left ventricular systolic function with a calculated ejection fraction of 57%. 3 . No obvious significant scintigraphic evidence of myocardial ischemia or scar. Echo 04/25/18 Conclusions: 1 . Technically difficult study due to atrial fibrillation. Mild global left ventricular systolic hypokinesis. N ormal left ventricular size. Normal left ventricular wall thickness. Unable to determine diastolic f unction due to cardiac arrhythmia. Left ventricular ejection fraction is estimated at 45 %. 2 . Moderate enlargement of right ventricle. Normal right ventricular systolic function. 3 . There is trace physiologic mitral valve regurgitation. 4 . There is mild tricuspid regurgitation. Estimated peak pulmonary artery systolic pressure is 36. 5 . There is moderate enlargement of right atrium. Chiari network visualized in right atrium (normal v ariant). 6 . There is severe enlargement of the left atrium. LA volume is 157 mL. The left atrial volume is s everely abnormal. July 10, 2018 Pt. has a-fib on coumadin. May need ortho surgery on R knee. He will need to come off of coumadin for surgery. Ideally needs transition to Lovanox since he's chronic a-fib, 1 mg / kg / sq / BID. Lovanox can be held the morning of the surgery. and coumadin to be resumed post-op state for a-fib. REVIEWED PTS INVASIVE AND NONINVASIVE TESTING. PT IS DEEMED AN ACCEPTABLE CANDIDATE FOR THE PLANNED SURGICAL PROCEDURE. RECOMMEND TO KEEP HEART RATE IN RANGE OF 60-100BPM AND SYSTOLIC BLOOD PRESSURE IN RANGE OF 110-140MMHG. OK TO USE BETA BLOCKERS/ CALCIUM CHANNEL BLOCKERS/ NITRATES/ AFTERLOAD REDUCING AGENTS TO MAINTAIN THE AFOREMENTIONED HEMODYNAMIC PARAMETERS. RECOMMEND PERIOPERATIVE TELE MONITORING IF PATIENT HAS HISTORY OF ARRHYTHMIA AND A POSTOPERATIVE EKG. Erica Anderson MD Cardiology: n ot on cpap Erica Anderson MD Cardiology:In a-fib on EKG. On OAC with coumadin. No bleeding issues. Erica Anderson MD Cardiology:Prior Hx. arrhythmia and a-fib. Erica Anderson MD Cardiology:Planning on TKR on R side along with L ankle surgery. Will order echo and nuclear Lexiscan stress test. Will need to get testing done prior to surgery, which is tentatively planned for April. Will also need to come off of coumadin for his procedure and be transitioned to Lovanox for OAC up to the day before and restarting after surgery, transitioning back to coumadin using 1mg/kg sq BID. T he following medications were removed from the medication list: Lisinopril 5 Mg Oral Tablet (Lisinopril) ..... One tablet at bedtime His updated medication list for this problem includes: Coumadin 5 Mg Oral Tablet (Warfarin sodium) ..... One tab daily except on sun and fri take 1 1/2 tab Metoprolol Tartrate 25 Mg Oral Tablet (Metoprolol tartrate) ..... 1.5 pill twice a day Erica Anderson MD Cardiology follow up:not on cpap Erica Anderson MD Cardiology follow up : not on cpap Erica Anderson MD Cardiology follow up:On Coumadin . Erica Anderson MD Cardiology follow up Erica jennings MD Cardiology follow up :Has not been by for any INRs AT ANY POINT IN TIME. He will be following with us and getting his Coumadin checked. INR in office is 3.3. and will be coming in weekly Erica Anderson MD Cardiology follow up : E ssentially useless for him to be on Xarelto since it is not covered by his insurance. Has run out of samples for several weeks. Hence, has not been covered for afib/stroke prophylaxix. Will have office find out what is covered and if it is only coumadin, then he will need to be on coumadin and have INRs checked as needed. May 04, 2017 S till remains on samples of Xarelto. Unable to stabilize INRs on Coumadin. Erica Anderson MD Cardiology Erica Anderson MD Cardiology:Still has mild SOB. Proably related to atrial fibrillation. Erica Anderson MD Cardiology:Essential ly useless for him to be on Xarelto since it is not covered by his insurance. Has rub out of samples for several weeks. Hence, has not been covered for afib/stroke prophylaxix. Will have opffice find out what is covered and if it is only coumadin, then he will need to be on coumadin and have INRs checked as needed. Erica Anderson MD Cardiology Erica Anderson MD Electrophysiology Brian kirkpatrick MD Electrophysiology Brian kirkpatrick MD Electrophysiology: reba lawton discussed undergoing ablation with the patient and explained the risks and benefits of the procedure. He will let us know his decision about undergoing procedure. He will be started on Flecainide 50mg twice daily. CT Angio will be done prior to tentative abltation if patient agrees with the plan. His updated medication list for this problem includes: Flecainide Acetate 50 Mg Oral Tabs (Flecainide acetate) ..... One tablet twice daily Metoprolol Tartrate 25 Mg Oral Tabs (Metoprolol tartrate) ..... 1.5 pill twice a day Brian Dunn MD Cardiology Follow up Gretchen britton MD Cardiology Follow up Gretchen britton MD Cardiology Follow up Gretchne britton MD Cardiology Follow up Gretchen britton MD Cardiology:No chest pain and no significant SOB during current daily activities. Ty Santos Cardiology Ty Santos Cardiology:If not in A Fib, pt can stop coumadin and switch to ASA. PT currently in SR. O rders: [id number] LTD. Complex ([id number]) M obile Cardiac Tele ([id number]) Ty [facility] Follow u p faxed 06/26/16:Weight loss and exercise advised. Brian Dunn MD Hospital Follow up faxed Brian Dunn MD Hospital Follow u p faxed 06/26/16:The following medications were removed from the medication list: Amiodarone Hcl 200 Mg Tabs (Amiodarone hcl) ..... One tablet three times daily His updated medication list for this problem includes: Coumadin 5 Mg Tabs (Warfarin sodium) ..... One tablet daily except on take 1 1/2 tab Metoprolol Tartrate 25 Mg Oral Tabs (Metoprolol tartrate) ..... 1.5 pill twice a day Magnesium Oxide 400 Mg Oral Tabs (Magnesium oxide) .... Two tablets twice a day In NSR S/P successful CV. Brian Dunn MD EP faxed 05/22/16:No chest pain. Brian Dunn MD EP faxed 05/22/16:On Warfarin for Afib. INR monitored by [facility]. Brian Dunn MD EP faxed 05/22/16:His updated medication list for this problem includes: Coumadin 5 Mg Tabs (Warfarin sodium) ..... One tab daily except on sat and sun 1 1/2 tab Metoprolol Tartrate 25 Mg Oral Tabs (Metoprolol tartrate) ..... 1.5 pill twice a day Magnesium Oxide 400 Mg Oral Tabs (Magnesium oxide) .... Two tablets twice a day Orders: S NOMED-CT: [id number] Current Medications Documented (SCT-[id number]) E KG (CPT-27964) M obile Cardiac Tele (CPT-98570) C ardioversion - GC (CPT-04630) T EE - GC (*) Brian Dunn MD Cardiology Gretchen Barnhart MD Cardiology Gretchen Barnhart MD Cardiology Gretchen Barnhart MD Cardiology Gretchen Barnhart MD Cardiology Gretchen Barnhart MD Cardiology Gretchen Barnhart MD Cardiology Gretchen Barnhart MD Cardiology Gretchen Barnhart MD Date Name Holter Monitor 48 hr RPM (remote patient monitoring) Complete Echo X-Ray, Foot Holter Monitor 48 hr Stress Exercise Card iolite Complete Echo Carotid Duplex Bilat eral Sleep Study Stress Regadenoson Complete Echo INR Strip INR Strip INR Strip Sleep Study Titratio n CT Angio, Cardiac Pr e-Ablation/Morphology ABLATION w/ Anesthes ia Mobile Cardiac Tele Holter Monitor 24 Hr BASIC METABOLIC PANE L W/EGFR DLCO - 24915 FRC - 97328 FVC - 94540 ANGELO - GC Cardioversion - GC Mobile Cardiac Tele HISTORY OF PROCEDURES Procedure Date Procedure Name Provider Procedure Notes S tatus Complex e/m visit add on Gretchen Barnhart MD completed EKG Gretchen Barnhart MD completed Brett Anderson MD compl eted Brett Canela MD complet ed Brett Canela MD complet ed Brett Canela MD complet ed Brett Canela MD complet ed Brett Ross MD completed Brett Anderson MD compl eted Brett Ross MD completed EKG Erica Anderson MD compl eted Brett Barnhart MD completed Brett García MD completed Brett García MD completed Brett Barnhart MD completed Brett Canela MD complet ed Brett Canela MD complet ed Brett Link MD complete d EKG Erica Anderson MD compl eted Protime Martin Kelley RN completed Brett Umana MD complete d Brett Barnhart MD completed Brett Anderson MD compl eted Brett Canela MD complet ed Brett Anderson MD compl eted Brett Anderson MD compl eted EKG Erica Anderson MD compl eted Protime Tha García MD completed Protime Tha García MD completed Protime Gretchen Barnhart MD completed Protime Mat Umana MD complete d Regadenoson, 4 units Erica Anderson MD completed Cardiolite, 2 units Erica Anderson MD completed SPECT Images Gretchen Barnhart MD complet ed Stress EKG Gretchen Barnhart MD completed Protime Gretchen Barnhart MD completed EKG Erica Anderson MD compl eted Protime Erica Anderson MD compl eted Protime Lit Ross MD completed Protime Dacia Canela MD complet ed Protime Erica Anderson MD compl eted Protime Brian busch MD completed Protime Erica Anderson MD compl eted Protime Erica Anderson MD compl eted Protime Erica Anderson MD compl eted EKG Erica Anderson MD compl eted EKG Erica Anderson MD compl eted SNOMED-CT: [id number] Current Medications Documented Erica Anderson MD completed EKG Erica Anderson MD compl eted SNOMED-CT: 163778190654496 Current Medications Documented Erica Anderson MD completed EKG Brian busch MD completed SNOMED-CT: 875408637802436 Current Medications Documented Brian Dunn MD completed SNOMED-CT: 94078479 Physical Exam, Performed: Pulse Exam of Foot Gretchen Barnhart MD completed SNOMED-CT: 658851355951708 Current Medications Documented Gretchen Barnhart MD completed EKKamari Barnhart MD completed EKG ulius Kellee busch MD completed SNOMED-CT: 128373007561685 Current Medications Documented Saulius Mary Joitis completed Brett Barnhart MD completed Protime Brian busch MD completed Brett Barnhart MD completed Brett Barnhart MD completed Brett Barnhart MD completed Brett Barnhart MD completed Brett Barnhart MD completed EKG ulius Kellee busch MD completed SNOMED-CT: 043781553239485 Current Medications Documented Saulius Mona SORTO completed INR Strip Brian busch MD completed INR Strip Gretchen Barnhart MD completed Brett Barnhart MD completed BLOOD COUNT HEMOGLOBIN Saulius Eugenia nascimento MD completed FVC - 89102 ulius Kellee busch MD completed FRC - 95431 ulius Kellee busch MD completed DLCO - 38736 Brian busch MD completed EKG Brian busch MD completed SNOMED-CT: 777616525810878 Current Medications Documented Saulius Mary Joitis completed Brett Barnhart MD completed Brett Barnhart MD completed SNOMED-CT: 97799277 Physical Exam, Performed: Pulse Exam of Foot Gretchen Barnhart MD completed Brett Barnhart MD completed SNOMED-CT: 227116102833685 Current Medications Documented Gretchen Barnhart MD completed Brett Barnhart MD completed Brett Barnhart MD completed Brett Barnhart MD completed INR Strip Gretchen Barnhart MD completed Prottiffanie Barnhart MD completed Brett Barnhart MD completed Brett Barnhart MD completed Brett Barnhart MD completed Brett Barnhart MD completed Stress EKG Chris Link MD complete d Regadenoson, 4 units Dacia Canela MD completed Cardiolite, 2 units Dacia Canela MD completed SPECT Images Dacia Canela MD compl eted SNOMED-CT: 03930809 Physical Exam, Performed: Pulse Exam of Foot Gretchen Barnhart MD completed Brett Barnhart MD completed SNOMED-CT: 517926105074552 Current Medications Documented Gretchen Barnhart MD completed EKG Gretchen Barnhart MD completed Brett Barnhart MD completed Brett Barnhart MD completed Brett Barnhart MD completed
--- OUTSIDE RECORDS SUMMARY | 2024-06-15 17:42 | XMS_ITS | Encounter Summary ---
Author Organization [facility] Address [address] [place] [address] Care Team Providers Care Yard Jacker Name Role Phone Louis Hewitt MD Primary Care Provider [phone] Encounter Details Date Type Department Care Team (Late st Contact Info) Description 12/09/2018 Telephone [facility] IVR [address] [place] [address] Eunice Jara RN Social History Tobacco Use Types Packs/Day Years Used Date Smoking Tobacco: Never Smokeless Tobacco: Never Sex and Gender Information Value Date Recorded Sex Assigned at Not on file Gender Identity Not on file Sexual Orientation Not on file documented as of this encounter Progress Notes * Eunice Jara RN - 12/09/2018 10:51 AM CDT Left message for pt re: arrival time, pre proc instr, and CB# documented in this encounter Plan of Treatment Not on file documented as of this encounter Visit Diagnoses Not on filedocumented in this encounter Care Teams Yard Jacker Relationship Specialty Start Date End Date Louis Hewitt MD [address] [place] [address] PCP - General 08/26/18 documented as of this encounter
--- OUTSIDE RECORDS SUMMARY | 2024-06-15 17:43 | XMS_ITS | Referral Summary ---
Author Organization [facility] Address [address] [place] [address] Care Team Providers Care Track Superintendent Name Role Phone Louis Hewitt MD Primary Care Provider Encounters Date Type Department Care Team Description 03/23/2024 Documentation [facility] Gastroenterology [address] [facility] 12th [place] [address] [place] [address] Dominga Chew RN 03/20/2024 Orders Only [facility] Scanning, Provider 03/17/2024 4:40 PM PRINTING PLATE SETTER - 03/17/2024 11:59 PM PRINTING PLATE SETTER Hospital Encounter [facility] [address] [place] [address] Diagnosis unknown; Umbilical hernia without obstruction or gangrene Discharge Disposition: Discharge to home or self care from Last 3 Months Allergies Active Allergy Reactions Criticality Noted Date [...] Resolved Date BMI 27.0-27.9,adult 05/14/2020 11/27/19 21 Social History Tobacco Use Types Packs/Day Years Used Date Smoking Tobacco: Never Smokeless Tobacco: Never Tobacco Cessation:Counseling Given: Not Answered Sex and Gender Information Value Date Recorded Sex Assigned at Not on file Legal Sex Male 11:14 PM PRINTING PLATE SETTER Gender Identity Not on file Sexual Orientation [...] 01/04/2024 9:00 AM CDT Plan of Treatment Not on file Procedures Procedure Name Priority Date/Time Associated Diagnosis Comments GI - RESULT 03/20/2024 1:49 PM PRINTING PLATE SETTER MR BODY OUTSIDE CONSULT Routine 03/17/2024 4:40 PM PRINTING PLATE SETTER Diagnosis unknown HEPATITIS C ANTIBODY Routine 05/14/2020 11:46 AM PRINTING PLATE SETTER Steatosis of liver from Last 3 Months or Most Recently Relevant to Health Maintenance Results * GI - RESULT (03/20/2024 1:49 PM PRINTING PLATE SETTER) Anatomical Region Laterality Modality Other us Provider Scanning Final Result * MR Body Outside Consult (03/17/2024 4:40 PM PRINTING PLATE SETTER) Anatomical Region Laterality Modality Body N/A Magnetic Resonan ce 03/18/2024 8:47 AM PRINTING PLATE SETTER Impressions 03/18/2024 2:47 PM PRINTING PLATE SETTER No suspicious liver lesion. The findings, conclusions and recommendations within this report do not replace the initial findings, conclusions and recommendations made at the facility where the study was performed based upon the imaging and clinical condition at that time. Comparison with the prior report and clinical history is necessary. The provided images may or may not represent the [place] source data set and thus may contain changes that may lower the accuracy of this second-opinion interpretation. Dictated by: Aakash Crockett MD The radiology attending physician has personally reviewed this study, and had reviewed and/or edited this written report and agrees with it. Electronically signed by: Miguel Xavier M.D. Narrative 03/18/2024 2:47 PM PRINTING PLATE SETTER EXAMINATION: RADIOLOGY CONSULTATION ON OUTSIDE IMAGING STUDY STUDY INITIALLY PERFORMED: 03/10/2024 at [facility]. TYPE OF STUDY: Multiple MR images of [...] IMAGING STUDY STUDY INITIALLY PERFORMED: 03/10/2024 at [facility]. TYPE OF STUDY: Multiple MR images of [...] images may or may not represent the [place] source data set and thus may contain [...] * Hepatitis C antibody (05/14/2020 11:46 AM PRINTING PLATE SETTER) Hep C Ab Nonreactive Nonreactive [facility] Comment:Antibodies to HCV no t detected. Does NOT exclude the possibility of recent exposure to HCV. Blood specimen (specimen) 05/14/2020 11:46 AM PRINTING PLATE SETTER 05/14/2020 1:57 PM PRINTING PLATE SETTER Star Pierson MD LAB MICROBIOLOGY - GENER AL ORDERABLES Edited Result - Final [facility] Department [place] [address] from Last 3 Months or Most Recently Relevant to Health Maintenance Insurance [facility] MEDICARE ADVANTAGE MEDICARE IDPA MANAGED MEDICARE GENERIC RISK OTHER [facility] MEDICARE ADVANTAGE Care Teams Track Superintendent Relationship Specialty Start Date End Date Louis Hewitt MD PCP - General Family Medicine 01/12/20
--- OUTSIDE RECORDS SUMMARY | 2024-06-15 20:19 | XMS_ITS | Referral Summary ---
Author Organization [facility] Address [address] [place] [address] Care Team Providers Care Coal Shooter Name Role Phone Louis Hewitt MD Primary Care Provider Encounters Date Type Department Care Team Description 03/23/2024 Documentation [facility] Gastroenterology [address] [facility] [address] [place] [address] [place] [address] Dominga Chew RN 03/20/2024 Orders Only [facility] Scanning, Provider 03/17/2024 4:40 PM SOCIAL WORK COORDINATOR - 03/17/2024 11:59 PM SOCIAL WORK COORDINATOR Hospital Encounter [facility] [address] [place] [address] Diagnosis unknown; Umbilical hernia without [...] on file Legal Sex Male 11:14 PM SOCIAL WORK COORDINATOR Gender Identity Not on file Sexual Orientation [...] Comments GI - RESULT 03/20/2024 1:49 PM SOCIAL WORK COORDINATOR MR BODY OUTSIDE CONSULT Routine 03/17/2024 4:40 PM SOCIAL WORK COORDINATOR Diagnosis unknown HEPATITIS C ANTIBODY Routine 05/14/2020 11:46 AM SOCIAL WORK COORDINATOR Steatosis of liver from Last 3 Months or Most Recently Relevant to Health Maintenance Results * GI - RESULT (03/20/2024 1:49 PM SOCIAL WORK COORDINATOR) Anatomical Region Laterality Modality Other us Provider Scanning Final Result * MR Body Outside Consult (03/17/2024 4:40 PM SOCIAL WORK COORDINATOR) Anatomical Region Laterality Modality Body N/A Magnetic Resonan ce 03/18/2024 8:47 AM SOCIAL WORK COORDINATOR Impressions 03/18/2024 2:47 PM SOCIAL WORK COORDINATOR No suspicious liver lesion. The findings, conclusions and recommendations within this report do not replace the initial findings, conclusions and recommendations made at the facility where the study was performed based upon the imaging and clinical condition at that time. Comparison with the prior report and clinical history is necessary. The provided images may or may not represent the [place] source data set and thus may contain changes that may lower the accuracy of this second-opinion interpretation. Dictated by: Aakash Crockett MD The radiology attending physician has personally reviewed this study, and had reviewed and/or edited this written report and agrees with it. Electronically signed by: Miguel Xavier M.D. Narrative 03/18/2024 2:47 PM SOCIAL WORK COORDINATOR EXAMINATION: RADIOLOGY CONSULTATION ON OUTSIDE IMAGING STUDY STUDY INITIALLY PERFORMED: 03/10/[address] [facility]. TYPE OF STUDY: Multiple MR images of [...] IMAGING STUDY STUDY INITIALLY PERFORMED: 03/10/[address] [facility]. TYPE OF STUDY: Multiple MR images of [...] images may or may not represent the [place] source data set and thus may contain [...] * Hepatitis C antibody (05/14/2020 11:46 AM SOCIAL WORK COORDINATOR) Hep C Ab Nonreactive Nonreactive [facility] Comment:Antibodies to HCV no t detected. Does NOT exclude the possibility of recent exposure to HCV. Blood specimen (specimen) 05/14/2020 11:46 AM SOCIAL WORK COORDINATOR 05/14/2020 1:57 PM SOCIAL WORK COORDINATOR Star Pierson MD LAB MICROBIOLOGY - GENER AL ORDERABLES Edited Result - Final [facility] Department [place] [address] from Last 3 Months or Most Recently Relevant to Health Maintenance Insurance [facility] MEDICARE ADVANTAGE MEDICARE IDPA MANAGED MEDICARE GENERIC RISK OTHER [facility] MEDICARE ADVANTAGE [facility] MEDICARE Address: [address] [address] Care Teams Coal Shooter Relationship Specialty Start Date End Date Louis Hewitt MD PCP - General Family Medicine 01/12/20
--- OUTSIDE RECORDS SUMMARY | 2024-06-15 20:19 | XMS_ITS | Encounter Summary ---
Author Organization [facility] [place] [facility] Address [address] [place] [address] Phone Care Team Providers Care Universal Worker Assisted Living Name Role Phone Louis Hewitt MD Primary Care Provider Encounter Details Date Type Department Care Team (Late st Contact Info) Description 05/08/2023 Orders Only [facility] Scanning, Provider Social History Tobacco Use Types Packs/Day Years Used Date Smoking Tobacco: Never Smokeless Tobacco: Never Sex and Gender Information Value Date Recorded Sex Assigned at Not on file Legal Sex Male 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
--- OUTSIDE RECORDS SUMMARY | 2024-06-15 20:19 | XMS_ITS | Clinical Summary ---
Author Organization [facility] Address [address] [place] [address] Care Team Providers Care Laboratory Secretary Name Role Phone Louis Hewitt MD Primary Care Provider [phone] Allergies Active Allergy Reactions Criticality Noted Date [...] Type Department Care Team Description 03/23/2024 Documentation [facility] Gastroenterology [address] [facility] 12[address] [place] [id number] Dominga Chew RN 03/20/2024 Orders Only [facility] Scanning, Provider 03/17/2024 4:40 PM MARSHMALLOW RUNNER - 03/17/2024 11:59 PM MARSHMALLOW RUNNER Hospital Encounter [facility] [address] [place] [address] Diagnosis unknown; Umbilical hernia without obstruction or [...] on file Legal Sex Male 11:14 PM MARSHMALLOW RUNNER Gender Identity Not on file Sexual Orientation [...] Comments GI - RESULT 03/20/2024 1:49 PM MARSHMALLOW RUNNER MR BODY OUTSIDE CONSULT Routine 03/17/2024 4:40 PM MARSHMALLOW RUNNER Diagnosis unknown HEPATITIS C ANTIBODY Routine 05/14/2020 11:46 AM MARSHMALLOW RUNNER Steatosis of liver from Last 3 Months or Most Recently Relevant to Health Maintenance Results * GI - RESULT (03/20/2024 1:49 PM MARSHMALLOW RUNNER) Anatomical Region Laterality Modality Other us Provider Scanning Final Result * MR Body Outside Consult (03/17/2024 4:40 PM MARSHMALLOW RUNNER) Anatomical Region Laterality Modality Body N/A Magnetic Resonan ce 03/18/2024 8:47 AM MARSHMALLOW RUNNER Impressions 03/18/2024 2:47 PM MARSHMALLOW RUNNER No suspicious liver lesion. The findings, conclusions and recommendations within this report do not replace the initial findings, conclusions and recommendations made at the facility where the study was performed based upon the imaging and clinical condition at that time. Comparison with the prior report and clinical history is necessary. The provided images may or may not represent the [place] source data set and thus may contain changes that may lower the accuracy of this second-opinion interpretation. Dictated by: Aakash Crockett MD The radiology attending physician has personally reviewed this study, and had reviewed and/or edited this written report and agrees with it. Electronically signed by: Miguel Xavier M.D. Narrative 03/18/2024 2:47 PM MARSHMALLOW RUNNER EXAMINATION: RADIOLOGY CONSULTATION ON OUTSIDE IMAGING STUDY STUDY INITIALLY PERFORMED: 03/10/2024 at [facility]. TYPE OF STUDY: Multiple MR images of [...] IMAGING STUDY STUDY INITIALLY PERFORMED: 03/10/2024 at [facility]. TYPE OF STUDY: Multiple MR images of [...] images may or may not represent the [place] source data set and thus may contain [...] * Hepatitis C antibody (05/14/2020 11:46 AM MARSHMALLOW RUNNER) Hep C Ab Nonreactive Nonreactive [facility] Comment:Antibodies to HCV no t detected. Does NOT exclude the possibility of recent exposure to HCV. Blood specimen (specimen) 05/14/2020 11:46 AM MARSHMALLOW RUNNER 05/14/2020 1:57 PM MARSHMALLOW RUNNER Star Pierson MD LAB MICROBIOLOGY - GENER AL ORDERABLES Edited Result - Final Performing Organization Address City/State/[facility] Co de Phone Number [facility] Department [place] [address] from Last 3 Months or Most Recently Relevant to Health Maintenance Insurance [place] [address] MEDICARE IDPA MANAGED MEDICARE GENERIC RISK OTHER [facility] MEDICARE ADVANTAGE Care Teams Laboratory Secretary Relationship Specialty Start Date End Date Louis Hewitt MD PCP - General Family Medicine 01/12/20
--- OUTSIDE RECORDS SUMMARY | 2024-06-15 20:19 | XMS_ITS | Encounter Summary ---
Author Organization [facility] Address [address] [facility] [place] [address] Care Team Providers Care Glass Selector Name Role Phone Louis Hewitt MD Primary Care Provider [phone] Encounter Details Date Type Department Care Team (Late st Contact Info) Description 12/09/2018 Telephone [facility] IVR [address] [place] [address] Eunice Jara RN Social History [...] on filedocumented in this encounter Care Teams Glass Selector Relationship Specialty Start Date End Date Louis Hewitt MD [address] [place] [address] PCP - General 08/26/18 documented as of this encounter
--- OUTSIDE RECORDS SUMMARY | 2024-06-15 20:19 | XMS_ITS | Clinical Summary ---
Author Organization [facility] Address [address] [facility] [place] [address] Care Team Providers Care Technical Coordinator Name Role Phone Louis Hewitt MD Primary Care Provider [phone] Source Comments [facility],non-owned Affiliates and Associated Physician Practices is amultiple site organization consisting of ambulatory clinics and hospital sitesin [place], [place], [place] and [place]. This disclosure is being madepursuant to the Care Everywhere program and may not contain all information available regarding this patient. Last updated 17.[facility] Allergies Active Allergy Reactions Criticality Noted Date [...] age to complete this topic Care Teams Technical Coordinator Relationship Specialty Start Date End Date Louis Hewitt MD [address] [place] [address] [facility] - General 08/26/18
--- OUTSIDE RECORDS SUMMARY | 2024-06-15 20:19 | XMS_ITS | Encounter Summary ---
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
--- OUTSIDE RECORDS SUMMARY | 2024-06-15 20:19 | XMS_ITS | Continuity of Care Document ---
Author Organization [facility] Address [address] [address] [place] [address] Phone Care Team Providers Care Billet Sawyer Name Role Phone Sandra Vazquez Unavailable Unavailable Advance Directives Directive Yes / No Effective Date File Name No Information Encounters Encounter Description Practice Location Reason(s) For Visit Diagnoses Date Provider Providers Copied on Encounter [facility], [address], [place], [place], [id number], [place] tel:[phone] [facility] No Information [phone] Taylor Flores. [address] [facility] , [address], [place], [address], [place]. tel:[phone] Family History Family Member Type Diagnosis Age At Onset No Information Payers Payer name Insurance type Covered democrat ID Authoriza tion(s) Medicaid [facility] [id number] Social History Type Description Quantity Date Captured [...]
--- OUTSIDE RECORDS SUMMARY | 2024-06-15 20:19 | XMS_ITS | CONTINUITY OF CARE DOCUMENT ---
Author Name natan yeelopez Address Unknown Organization [facility] Address [address] [place] [address] Phone [phone] Care Team Providers Care Visual Lead Name Role Phone Obey SORTO, Gretchen Unavailable BRITTNEY SORTO, ENOC F Unavailable BRITTNEY SORTO, ENOC F Unavailable [phone] PROBLEMS Condition Status Date Provider Notes Atrial [...] In-person encounter Office Visit Gretchen Barnhart MD [facility] - In-person encounter Office Visit Gretchen Barnhart MD [facility] Hypotension - In-person encounter Office Visit Gretchen Barnhart MD [facility] Foot pain, swelling, right - In-person encounter Office Visit Gretchen Barnhart MD [facility] ObesityHx of Hernia - In-person encounter Office Visit Gretchen Barnhart MD [facility] - In-person encounter Office Visit Gretchen Barnhart MD [facility] Shortness of breath--echo ef 52%, mild lvh, severe R and LAE, mild mr, AD ca on lad on ct scan, nl stress nuc hronic back pain, sciatica - In-person encounter Office Visit Gretchen Barnhart MD [facility] Atrial Fibrillation, s/p CV on Eliquis , has a l peristant superior vena cavaCurrent use of Warfarin - INR per [facility] cardiovasc. examination - In-person encounter Office Visit Erica Anderson MD [facility] - In-person encounter Office Visit Erica Anderson MD [facility] Atrial Fibrillation, s/p CV on Eliquis , has a l peristant superior vena cava - In-person encounter Office Visit Gretchen Barnhart MD [facility] - In-person encounter Office Visit Erica Anderson MD [facility] - In-person encounter Office Visit Erica Anderson MD [facility] - In-person encounter Office Visit Erica Anderson MD [facility] - In-person encounter Office Visit Erica Anderson MD [facility] - In-person encounter Office Visit Erica Anderson MD [facility] - In-person encounter Office Visit Erica Anderson MD [facility] - In-person encounter Office Visit Brian Dunn MD [facility] - In-person encounter Office Visit Gretchen Barnhart MD [facility] - In-person encounter Office Visit Brian Dunn MD [facility] - In-person encounter Office Visit Brian Dunn MD [facility] Atrial Fibrillation, s/p CV on Eliquis , has a l peristant superior vena cava - In-person encounter Office Visit Brian Dunn MD [facility] Atrial Fibrillation, s/p CV on Eliquis , has a l peristant superior vena cavaSyncope - In-person encounter Office Visit Gretchen Barnhart MD [facility] Atrial Fibrillation, s/p CV on Eliquis , has a l peristant superior vena cavaCAD ca on lad on ct scan, nl stress nuc 11/2021 - In-person encounter Office Visit Gretchen Barnhart MD [facility] Shortness of breath--echo ef 52%, mild [...] [place] oxygen saturation, oximetry 97 % Goldie [place] respiratory rate E&M 12 /min Goldie [place] pulse rate 82 /min Goldie [place] weight E&M 148 [lb_av] Goldie [place] height E&M 66 [in_i] Goldie [place] Body Mass Index (Ratio) 25.82 kg/m2 Justyn Barnhart MD blood pressure, diastolic 71 mm[Hg] [facility], systolic 91 mm[Hg] Liz z [facility] oxygen saturation, oximetry 96 % Yane [place] pulse rate 58 /min [facility] respiratory rate E&M 18 /min Yane Adamson illetom weight E&M 160 [lb_av] [facility] height E&M 66 [in_i] [facility] Body Mass Index (Ratio) 25.82 kg/m2 Justyn Barnhart MD blood pressure, cuff size regular Valentin [facility] blood pressure, diastolic 73 mm[Hg] Valentin et blood pressure, systolic 101 mm[Hg] [facility] pulse rate 59 /min Alin respiratory rate E&M 12 /min Alin oxygen saturation, oximetry 98 % Alin weight E&M 160 [lb_av] Alin er y height E&M 66 [in_i] Alin y Body Mass Index (Ratio) 25.98 kg/m2 [...] respiratory rate E&M 16 /min Nay aden [place] blood pressure, cuff size large Michelle gutierres Hernandez height E&M 66 [in_i] Marina Isma palacios Body Mass Index (Ratio) 28.08 kg/m2 Daryl Anderson MD pulse rate 69 /min [facility] blood pressure, diastolic 97 mm[Hg] To nsha Hernandez blood pressure, systolic 138 mm[Hg] Ton [facility] oxygen saturation, oximetry 97 % [facility] Hernandez respiratory rate E&M 16 /min [facility] Hernandez weight E&M 174 [lb_av] Tons Hernandez height E&M 66 [in_i] [facility] Hernandez Body Mass Index (Ratio) 26.50 [...] Cat Rock[place] weight E&M 187 [lb_av] Cat [place] Body Mass Index (Ratio) 30.50 kg/m2 Justyn [...] Barboza respiratory rate E&M 18 /min Cathryn Braboza pulse rate 69 /min Norma staton weight E&M 176.2 [lb_av] Norma willett height E&M 66 [in_i] Norma staton Body Mass Index (Ratio) 30.82 kg/m2 José Miguel pennie [facility] blood pressure, cuff size regular rri Gilmar [...] Index (Ratio) 29.53 kg/m2 José Miguel casper [facility] blood pressure, resting No Ruiz ty [place] blood pressure, diastolic 72 mm[Hg] Kr isty Lanny blood pressure, systolic 130 mm[Hg] Kri sty Lanny pulse rate 102 /min Cat Lanny respiratory rate E&M 17 /min Cat [place] oxygen saturation, oximetry 97 % Cat Lanny blood pressure, cuff size regular Kr isty [place] weight E&M 183 [lb_av] Cat [place] height E&M 66 [in_i] Cat [place] blood pressure, diastolic 98 mm[Hg] Da mya Celsa blood pressure, systolic 124 mm[Hg] Dac ia Celsa height E&M 66 [in_i] Kalie Celsa height in centimeters E&M 167.64 cm Da mya [place] blood pressure, diastolic 92 mm[Hg] Me leandra Silva blood pressure, systolic 129 mm[Hg] Padma bernstein Silva pulse rate 88 /min Haley Silva oxygen saturation, oximetry 96 % Haley Silva respiratory rate E&M 15 /min Haley Silva Body Mass Index (Ratio) 30.50 kg/m2 Sherlyn barrios [facility] weight E&M 189 [lb_av] Haley Silva blood pressure, diastolic 95 mm[Hg] Me leandra Silva blood pressure, systolic 144 mm[Hg] Padma bernstein Silva pulse rate 84 /min Haley Silva oxygen saturation, oximetry 96 % Haley Silva respiratory rate E&M 15 /min Haley Silva Body Mass Index (Ratio) 31.95 kg/m2 Sherlyn barrios [facility] weight E&M 198 [lb_av] Haley Silva height [...] Kelley RN international normalized ratio (INR) 3.7 Vergas Alicia Normal prothrombin time (patient) 44.9 s Vergas Alicia coagulation managed by Martin Kelley RN [...] Normal prothrombin time (patient) 22.4 s Estefani Benson coagulation managed by Martin [...] Kelley RN international normalized ratio (INR) 2.7 Vergas Alicia Normal prothrombin time (patient) 32.0 s Vergas Alicia coagulation managed by Rebecca Mcadams international [...] Luther Normal prothrombin time (patient) 19.9 s Sharon Luther coagulation managed by Martin Kelley RN international normalized ratio (INR) 1.8 Kalie Celsa Normal prothrombin time (patient) 21.6 s Kalie Celsa coagulation managed by Martin Kelley RN international normalized ratio (INR) 1.4 Kalie Celsa Normal prothrombin time (patient) 16.3 s Kalei Celsa coagulation managed by Martin Kelley RN [...] 1 tablet by mouth once a day Cornel Juárez Paxil 10 mg tablet completed 1 [...] E&M revi ewed - no changes [facility] S moking History: [...] MD passive cigarette sm jojo exposure yes Kalei Celsa smoking status Never smoker Kalie Celsa social history reviewed E&M revi ewed - no changes required Erica Anderson MD social history E&M S moking History: Ming morales has never smoked. Erica Anderson MD passive cigarette sm jojo exposure yes Kalie Celsa smoking status Never smoker Kalie Celsa number [...] Payer name Policy type / Coverage type [place] [employer] [facility] CHRONIC COMPLETE ASSURE (PPO C-SNP) Medicare [id number] ADVANCE DIRECTIVES Name Date DISCUSSED - NO DECISION MADE TREATMENT PLAN Date Name Performer [id number],S, Cornel Ahmedza i [id number],S, Cornel Ahmedza i [id number],S, Cornel Ahmedza i [id number],S, Cornel Ahmedza i [id number],S, Cornel Ahmedza i [id number],B, Cornel Ahmedza i [id number],S, Cornel Ahmedza i [id number],S, Cornel Ahmedza i [id number],S, Cornel Ahmedza i [id number],S, Cornel Ahmedza i [id number],S, Cornel Ahmedza i [id number],S, Cornel Ahmedza i [id number],S, Cornel Ahmedza i [id number],S, Cornel Ahmedza i [id number],S, Cornel Ahmedza i [id number],S, Cornel Ahmedza i [id number],S, Cornel Ahmedza i [id number],W, Cornel Ahmedza i [id number],S, Cornel Ahmedza i [id number],S, Cornel Ahmedza i [id number],S, Cornel Ahmedza i [id number],S, Cornel Ahmedza i [id number],B, Cornel Ahmedza i [id number],B, Cornel Ahmedza i [id number],W, Cornel Ahmedza i [id number],S, Cornel Ahmedza i [id number],W, Cornel Ahmedza i [id number],S, Cornel Ahmedza i [id number],W, Cornel Ahmedza i Cardiology: H is updated [...] rders: M onitor - Telemetry (Mobile Cardiac) (CPT-72332) Cornel Ahmedzai Cardiology Cornel Ahmedzai Cardiology Cornel [...] Cardiology Cornel Ahmedzai Cardiology Cornel Ahmedzai Cardiology Ocrnel Ahmedzai Cardiology Cornel Ahmedzai Cardiology Cornel Ahmedzai [...] Currently taking care of teresadomingoyuan. Pt lost outsole flexer due to insurance change. W ill defer [...] SR. O rders: 9 9213 LTD. Complex (CPT-32673) M obile Cardiac Tele (CPT-71023) [facility] Follow u p faxed [...] 05/22/16:On Warfarin for Afib. INR monitored by [facility]. Brian Dunn MD EP faxed 05/22/16:His updated medication list for this problem includes: Coumadin 5 Mg Tabs (Warfarin sodium) ..... One tab daily except on sat and sun 1 1/2 tab Metoprolol Tartrate 25 Mg Oral Tabs (Metoprolol tartrate) ..... 1.5 pill twice a day Magnesium Oxide 400 Mg Oral Tabs (Magnesium oxide) .... Two tablets twice a day Orders: S NOMED-CT: [id number] Current Medications Documented (SCT-[id number]) E KG (CPT-07798) M obile Cardiac Tele (CPT-64792) C ardioversion - GC (CPT-98192) T EE - GC (*) Brian Dunn [...] BASIC METABOLIC PANE L W/EGFR DLCO - 92086 FRC - 00981 FVC - 66911 ANGELO - GC Cardioversion - GC Mobile [...] EKG Erica Anderson MD compl eted SNOMED-CT: 466929145267081 Current Medications Documented Erica Anderson MD completed EKG Erica Anderson MD compl eted SNOMED-CT: 032058191184743 Current Medications Documented Erica Anderson MD completed EKG Brian busch MD completed SNOMED-CT: 221940600501498 Current Medications Documented Brian Dunn MD completed SNOMED-CT: 18461092 Physical Exam, Performed: Pulse Exam of Foot Gretchen Barnhart MD completed SNOMED-CT: 518394637666558 Current Medications Documented Gretchen Barnhart MD completed EKKamari Barnhart MD completed EKG ulius Kellee busch MD completed SNOMED-CT: 704539475345582 Current Medications Documented Saulius Mary Joitis completed Brett Barnhart MD completed Protime Brian busch MD completed Brett Barnhart MD completed Brett Barnhart MD completed Brett Barnhart MD completed Brett Barnhart MD completed Brett Barnhart MD completed EKG ulius Kellee busch MD completed SNOMED-CT: 069061468114195 Current Medications Documented Saulius Mona SORTO completed INR Strip Brian busch MD completed INR Strip Gretchen Barnhart MD completed Brett Barnhart MD completed BLOOD COUNT HEMOGLOBIN Saulius Eugenia nascimento MD completed FVC - 57261 ulius Kellee busch MD completed FRC - 04627 ulius Kellee busch MD completed DLCO - 44771 Brian busch MD completed EKG Brian busch MD completed SNOMED-CT: 474154233092277 Current Medications Documented Saulius Mary Joitis completed Brett Barnhart MD completed Brett Barnhart MD completed SNOMED-CT: 90053230 Physical Exam, Performed: Pulse Exam of Foot Gretchen Barnhart MD completed Brett Barnhart MD completed SNOMED-CT: 534996175661994 Current Medications Documented Gretchen Barnhart MD completed Brett Barnhart MD completed Brett Barnhart MD completed Brett Barnhart MD completed INR Strip Gretchen Barnhart MD completed Prottiffanie Barnhart MD completed Brett Barnhart MD completed Brett Barnhart MD completed Brett Barnhart MD completed Brett Barnhart MD completed Stress EKG Chris Link MD complete d Regadenoson, 4 units Dacia Canela MD completed Cardiolite, 2 units Dacia Canlea MD completed SPECT Images Dacia Canela MD compl eted SNOMED-CT: 42595592 Physical Exam, Performed: Pulse Exam of Foot Gretchen Barnhart MD completed Brett Barnhart MD completed SNOMED-CT: 267771442453585 Current Medications Documented Gretchen Barnhart MD completed EKG Gretchen Barnhart MD completed Brett Barnhart MD completed Brett Barnhart MD completed Brett Barnhart MD completed
--- NOTE | 2024-06-15 20:49 | ECG_ITS ---
Test Date: 2024-06-15 20:58:05 Measurements Intervals [place] Rate: 104 P: 0 [place]: 0 QRS: 262 QRSD: 168 T: 51 QT: 369 QTc: 486 Interpretive Statements ATRIAL FIBRILLATION WITH RAPID VENTRICULAR RESPONSE INDETERMINATE AXIS RIGHT BUNDLE BRANCH BLOCK [120+ ms QRS DURATION, UPRIGHT V1, 40+ ms S IN I/aVL/V4/V5/V6] MARKED ST DEPRESSION, CONSIDER SUBENDOCARDIAL INJURY [0.2+ mV ST DEPRESSION] No previous ECG available for comparison Electronically Signed On 06-17-2024 15:21:37 CDT by Ruy Leon M.D.
--- NOTE | 2024-06-15 21:00 | ED.GENADULT ---
HPI - General Adult General Chief complaint: Unspecified <Britni Meeks PA-C - Last Filed: 06/16/24 00:52> Stated complaint: muscle tremors <Britni Meeks PA-C - Last Filed: 06/16/24 00:52> Time Seen by Provider: 06/15/24 19:50 <Britni Meeks PA-C - Last Filed: 06/16/24 00:52> History of Present Illness HPI narrative: 58-year-old male with a history of depression, anxiety, CHF, AFib on Eliquis, COPD presents to the emergency department with father at bedside for tremulousness for several weeks. Patient states he has uncontrollable movements of his arms and legs. He has also had chest pain, epigastric pain/LUQ and intermittent numbness to his right arm and hand. He states his symptoms seem to improve when he takes Xanax, worse with anxiety and stress. He endorses increased anxiety and stress at home with having to help take care of his mother. He denies alcohol or drug use but is prescribed oxycodone. He states he stop taking this medication approximately 1 month ago. He is not prescribed any SSRIs or SNRIs. Patient reported to nursing staff that a few days ago he laid on the floor and felt paralyzed as though he could not get up, and then proceeded to have uncontrollable screaming. He denies personal or family history of cardiac disease or stroke. He does not smoke. No history of thyroid disease. His housetrailer servicer is Dr. Barnhart. He is also reporting pain to his left inguinal region. Per chart review he does have a left inguinal hernia. Last bowel movement was 3 days ago. He denies obstipation. Denies abdominal trauma or MVCs. <Britni Meeks PA-C - Last Filed: 06/16/24 00:52> Related Data Home medications: Home Medications ?Medication ?Instructions ?Recorded ?Confirmed ?Last Taken ?Type metoprolol succinate 50 mg 50 mg PO DAILY 01/26/22 06/16/24 Unknown History tablet,extended release 24 hr tamsulosin 0.4 mg capsule (Flomax) 0.4 mg PO DAILY 05/04/22 06/16/24 Unknown History magnesium hydroxide 400 mg (170 mg 400 mg PO DAILY 02/06/23 06/16/24 Unknown History magnesium) chewable tablet fluticasone fur. 100 mcg-umeclid 1 inh inhalation DAILY 04/15/24 06/16/24 Unknown History 62.5 mcg-vilant 25 mcg inhalat.powder (Trelegy Ellipta) <Britni Meeks PA-C - Last Filed: 06/16/24 00:52> Allergies/adverse reactions: Allergies Allergy/AdvReac Type Severity Reaction Status Date / Time ciprofloxacin Allergy Intermediate Rash Verified 06/15/24 17:41 <Britni Meeks PA-C - Last Filed: 06/16/24 00:52> Review of Systems Review of Systems: All systems reviewed & are unremarkable except as noted in HPI and below <Britni Meeks PA-C - Last Filed: 06/16/24 00:52> [facility] Past Medical History Medical History: Medical History Butterfly rash Acute otitis media Joint pain Spasm of thoracic back muscle Sinusitis Diarrhea BMI 26.0-26.9,adult 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 Left lower quadrant abdominal pain BMI 25.0-25.9,adult BMI 24.0-24.9, adult Umbilical hernia Non-healing skin lesion Eye injury BMI 21.0-21.9, adult Screen for colon cancer Hematuria BMI 22.0-22.9, adult Patellofemoral syndrome, left Cardiomegaly Steatohepatitis Bladder wall thickening Prostate enlargement COPD (chronic obstructive pulmonary disease) DJD (degenerative joint disease) of cervical spine Rotator cuff tear Left inguinal hernia Abdominal hernia Anxiety disorder, unspecified Atrial fibrillation and flutter Congestive heart failure, unspecified Fatty liver Lumbar spondylosis Pulmonary emphysema <Britni Meeks PA-C - Last Filed: 06/16/24 00:52> Surgical History Surgical History: Surgical History H/O cardiac radiofrequency ablation H/O colonoscopy History of bladder surgery ablation History of vasectomy History of knee surgery History of bunionectomy History of inguinal hernia repair History of umbilical hernia repair <Britni Meeks PA-C - Last Filed: 06/16/24 00:52> Family History Family History: Family History Father No problems noted. Mother Thyroid activity decreased Fatty liver Stage 2 liver disease Sibling , covid-19 COVID-19 Other Diabetes mellitus Family history of coronary artery disease Family history of malignant neoplasm Hypertension <Britni Meeks PA-C - Last Filed: 06/16/24 00:52> Social History Social History: Social History Smoking status: Never smoker Second hand tobacco smoke exposure: Yes Alcohol intake: never Substance use: current Substance use type: marijuana Other substance usage details: OCCASIONAL Do You Feel Safe in your Home?: Yes Lack of Transportation: No Lack of Food: Never True Current Housing: I Have Housing Concerned About Future Housing: No Difficulty Paying Gas/Electric Bills: YES Difficulty Paying for Meds: No Currently Unemployed: No Education: High School Diploma/GED Difficulty w/ Childcare or Family Care: No Living arrangements: alone Additional living arrangements comments: is . 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 Gender identity (if verbalized by the patient): Male Spiritual care concerns: No <Britni Meeks PA-C - Last Filed: 06/16/24 00:52> Exam Narrative: GENERAL: Anxious appearing HEAD: Normocephalic, atraumatic. EYES: EOMI. ENT: Nares clear, no rhinorrhea or epistaxis. Mucous membranes moist. NECK: Supple. No nuchal rigidity CHEST: Clear to auscultation. No respiratory distress. HEART: Regular rate and rhythm. No murmur heard. Normal peripheral pulses. ABDOMEN: Normoactive bowel sounds. Tenderness and guarding in the epigastrium and left upper quadrant with rebound tenderness to the left upper quadrant. No rigidity EXTREMITIES: Normal range of motion. No edema. SKIN: Warm, dry, no rash. NEURO: No focal deficits. Alert and oriented x4. Strength 5/5 in BUE and BLE. Course tremor and random myoclonic jerks throughout all extremities. No asterixis. Tongue fasciculations <Britni Meeks PA-C - Last Filed: 06/16/24 00:52> Course RECEIVABLE MANAGER/PA Physician Supervision I did go to bedside and assess this patient with PA. He appears tremulous. Possible tongue fasculations but mild. Tremors with hands outstretched and fingers but without kirill asterixis. Denies alcohol. No ankle clonus bilaterally and not on seritonergics by report. States last opiate use was 1 month ago so although considerec opiate withdrawal, time course does not fit; no piloerection and pupils not particularly abnormal for room light. Patient has splenic laceration, presumably not secondary to trauma. May be managed with cautious serial exams versus potential surgical intervention. I agree with patient's work up and decision to admit by [facility]. <Jamaica Pleitez MD - Last Filed: 06/16/24 10:04> Vital Signs Vital signs: Vital Signs Temperature 98.6 F 06/15/24 18:08 Pulse Rate 105 H 06/15/24 18:08 Respiratory Rate 19 06/15/24 18:08 Blood Pressure 140/96 H 06/15/24 18:08 Pulse Oximetry 99 06/15/24 18:08 Oxygen Delivery Room Air 06/15/24 18:08 Temperature 98.6 F 06/15/24 18:08 Pulse Rate 107 H 06/16/24 08:35 Respiratory Rate 20 06/16/24 08:35 Blood Pressure 135/104 H 06/16/24 08:35 Pulse Oximetry 100 06/16/24 08:35 Oxygen Delivery Room Air 06/15/24 18:08 <Britni Meeks PA-C - Last Filed: 06/16/24 00:52> Vital Signs Temperature 98.6 F 06/15/24 18:08 Pulse Rate 105 H 06/15/24 18:08 Respiratory Rate 19 06/15/24 18:08 Blood Pressure 140/96 H 06/15/24 18:08 Pulse Oximetry 99 06/15/24 18:08 Oxygen Delivery Room Air 06/15/24 18:08 Temperature 98.6 F 06/15/24 18:08 Pulse Rate 107 H 06/16/24 08:35 Respiratory Rate 20 06/16/24 08:35 Blood Pressure 135/104 H 06/16/24 08:35 Pulse Oximetry 100 06/16/24 08:35 Oxygen Delivery Room Air 06/15/24 18:08 <Jamaica Pleitez MD - Last Filed: 06/16/24 10:04> Medical Decision Making MDM Narrative Medical decision making narrative: 58-year-old male with history of CHF, AFib on Eliquis, anxiety, COPD presents emergency department with his father at bedside for tremulousness and reported involuntary muscle jerking for several weeks, chest pain, epigastric pain/LUQ pain intermittent numbness to his right upper extremity. On arrival to the ED patient has elevated blood pressure 140/96 is mildly tachycardic at 105bpm. He is very anxious appearing and tremulous on exam. Exam is notable for the above. Will obtain lab work including electrolytes, TSH, ETOH and urine drug screen, UA, CPK. Given reported chest and abdominal pain in addition to intermittent right arm numbness, will add on CTA chest abdomen pelvis to evaluate for dissection. CBC without leukocytosis or anemia. Chemistries with a BUN of 26. No remarkable actually derangements. Mag is normal. ProBNP elevated 1380, patient has no extremity edema and is satting 99% on room air in no distress. CK mildly elevated at 277, not consistent with rhabdo. UDS did test positive for opioids, benzodiazepines and cannabinoids, he was given Ativan and morphine in the emergency department which may have triggered the positive results. He does note that he was on oxycodone previously but has not taken this in approximately 1 month. TSH within normal limits. ETOH less than 10. EKG shows AFib with a rate of 97 bpm, ST depression and T-wave abnormality in the anterior lateral leads. Troponin is undetectable x2. CTA chest PE shows relatively high density fluid collection subjacent to the spleen, with somewhat ill-defined inferior splenic margin, suggesting splenic laceration or rupture with hemoperitoneum. There is cardiomegaly with mild pericardial effusion. - patient denies any abdominal injury or trauma. He states he had pain to his left upper quadrant for approximately 3 weeks was no inciting event. Patient was given IV morphine and Ativan. On re-evaluation his tremors and involuntary myoclonic jerks seem to have improved somewhat but still present. Uncertain at this time what is causing his symptoms other than anxiety. I did consider EtOH withdrawal, however patient adamantly denies any alcohol use since he was 20 years old. Also considered opioid withdrawal, however this seems less likely given he is 1 month out from using oxycodone and the morphine helped very minimally. After another dose of Ativan, tremors have largely resolved and patient feels much better. Given CT findings and abnormal EKG in the setting of chest pain, will admit for observation. I discussed CT findings with surgeon, Dr. Walters, who agrees to consult on admission. Discussed with hospitalist, Dr. Rico, who requests consult with Neurology given myoclonic jerks and intermittent R arm numbness. I discussed with neurologist, Dr. Ortega, who agrees to consult, advises CT brain noncon. <Britni Meeks PA-C - Last Filed: 06/16/24 00:52> Vital Signs Vital Signs: Vital Signs Temperature 98.6 F 06/15/24 18:08 Pulse Rate 105 H 06/15/24 18:08 Respiratory Rate 19 06/15/24 18:08 Blood Pressure 140/96 H 06/15/24 18:08 Pulse Oximetry 99 06/15/24 18:08 Oxygen Delivery Room Air 06/15/24 18:08 Temperature 98.6 F 06/15/24 18:08 Pulse Rate 107 H 06/16/24 08:35 Respiratory Rate 20 06/16/24 08:35 Blood Pressure 135/104 H 06/16/24 08:35 Pulse Oximetry 100 06/16/24 08:35 Oxygen Delivery Room Air 06/15/24 18:08 <Britni Meeks PA-C - Last Filed: 06/16/24 00:52> Vital Signs Temperature 98.6 F 06/15/24 18:08 Pulse Rate 105 H 06/15/24 18:08 Respiratory Rate 19 06/15/24 18:08 Blood Pressure 140/96 H 06/15/24 18:08 Pulse Oximetry 99 06/15/24 18:08 Oxygen Delivery Room Air 06/15/24 18:08 Temperature 98.6 F 06/15/24 18:08 Pulse Rate 107 H 06/16/24 08:35 Respiratory Rate 20 06/16/24 08:35 Blood Pressure 135/104 H 06/16/24 08:35 Pulse Oximetry 100 06/16/24 08:35 Oxygen Delivery Room Air 06/15/24 18:08 <Jamaica Pleitez MD - Last Filed: 06/16/24 10:04> Lab Data Result diagrams: 06/16/24 06:21 06/15/24 21:05 <Britni Meeks PA-C - Last Filed: 06/16/24 00:52> Labs: Lab Results 06/15/24 06/15/24 06/15/24 Range/Units 21:04 21:05 22:30 WBC 8.6 (4.5-10.0) K/mm3 RBC 4.96 (4.6-6.20) M/mm3 Hgb 15.8 (14.0-18.0) g/dL Hct 46.0 (42.0-52.0) % MCV 92.7 (80-100) fl MCH 31.9 (26-34) pg MCHC 34.3 (32-36) g/dl RDW 13.2 (11.5-14.5) % Plt Count 205 (150-375) k/mm3 MPV 8.8 (7.4-10.4) fl Immature Gran % (Auto) 0.2 (0-0.5) % Neut % (Auto) 66.6 (45.5-73.1) % Lymph % (Auto) 25.0 (18.3-44.2) % [place] % (Auto) 7.6 (2.6-8.5) % Eos % (Auto) 0.1 (0-4.4) % Baso % (Auto) 0.5 (0.2-1.2) % Lymph # (Auto) 2.14 (0.9-3.2) K/mm3 [place] # (Auto) 0.7 H (0.1-0.6) K/mm3 Eos # (Auto) 0.0 (0-0.3) K/mm3 Baso # (Auto) 0.0 (0.0-0.1) K/mm3 Abs Immat Gran (auto) 0.02 (0.00-0.031) K/mm3 Absolute Neuts (auto) 5.7 (1.3-6.7) K/mm3 Absolute Nucleated RBC 0.000 (0.0-0.012) K/mm3 Nucleated RBC % 0.0 (0.0-0.2) % PT 14.9 H (11.1-14.7) Seconds INR 1.1 APTT 30.0 (22.3-36.8) Seconds Sodium 141 (137-145) mmol/L Potassium 3.5 (3.4-5.0) mmol/L Chloride 108 H (98-107) mmol/L Carbon Dioxide 23 (22-30) mmol/L Anion Gap 10 (4-12) mmol/L BUN 26 H D (9-20) mg/dL Creatinine 1.29 (0.7-1.3) mg/dL Estim Creat Clear Calc Not Reportable Estimated GFR 57 L (59 - ) Glucose 105 (65-110) mg/dL Lactic Acid (0.7-2.0) mmol/L Calcium 9.3 (8.4-10.2) mg/dL Magnesium 2.3 (1.6-2.3) mg/dL Total Bilirubin 2.1 H (0.2-1.3) mg/dL AST 40 (17-59) U/L ALT 42 (6-50) U/L Alkaline Phosphatase 67 (38-126) U/L Total Creatine Kinase 277 H (55-170) U/L Troponin I < 0.012 (0.000-0.034) ng/mL NT-Pro-B Natriuret Pep 1380 H (19.9-100) pg/mL Total Protein 7.0 (6.3-8.2) g/dL Albumin 4.5 (3.5-5.1) g/dL Lipase 204 (23-300) U/L TSH (Reflex) 1.720 (0.465-4.68) uIU/mL Urine Opiates Screen Positive A (Negative) Urine Methadone Screen Negative (Negative) Ur Barbiturates Screen Negative (Negative) Ur Phencyclidine Scrn Negative (Negative) Ur Amphetamine Screen Negative (Negative) U Benzodiazepines Scrn Positive A (Negative) Urine Cocaine Screen Negative (Negative) U Cannabinoids Screen Positive A (Negative) Ethyl Alcohol < 10 (<10) mg/dL 06/15/24 06/15/24 Range/Units 23:26 23:27 WBC (4.5-10.0) K/mm3 RBC (4.6-6.20) M/mm3 Hgb (14.0-18.0) g/dL Hct (42.0-52.0) % MCV (80-100) fl MCH (26-34) pg MCHC (32-36) g/dl RDW (11.5-14.5) % Plt Count (150-375) k/mm3 MPV (7.4-10.4) fl Immature Gran % (Auto) (0-0.5) % Neut % (Auto) (45.5-73.1) % Lymph % (Auto) (18.3-44.2) % [place] % (Auto) (2.6-8.5) % Eos % (Auto) (0-4.4) % Baso % (Auto) (0.2-1.2) % Lymph # (Auto) (0.9-3.2) K/mm3 [place] # (Auto) (0.1-0.6) K/mm3 Eos # (Auto) (0-0.3) K/mm3 Baso # (Auto) (0.0-0.1) K/mm3 Abs Immat Gran (auto) (0.00-0.031) K/mm3 Absolute Neuts (auto) (1.3-6.7) K/mm3 Absolute Nucleated RBC (0.0-0.012) K/mm3 Nucleated RBC % (0.0-0.2) % PT (11.1-14.7) Seconds INR APTT (22.3-36.8) Seconds Sodium (137-145) mmol/L Potassium (3.4-5.0) mmol/L Chloride (98-107) mmol/L Carbon Dioxide (22-30) mmol/L Anion Gap (4-12) mmol/L BUN (9-20) mg/dL Creatinine (0.7-1.3) mg/dL Estim Creat Clear Calc Estimated GFR (59 - ) Glucose (65-110) mg/dL Lactic Acid 1.1 (0.7-2.0) mmol/L Calcium (8.4-10.2) mg/dL Magnesium (1.6-2.3) mg/dL Total Bilirubin (0.2-1.3) mg/dL AST (17-59) U/L ALT (6-50) U/L Alkaline Phosphatase (38-126) U/L Total Creatine Kinase (55-170) U/L Troponin I < 0.012 (0.000-0.034) ng/mL NT-Pro-B Natriuret Pep (19.9-100) pg/mL Total Protein (6.3-8.2) g/dL Albumin (3.5-5.1) g/dL Lipase (23-300) U/L TSH (Reflex) (0.465-4.68) uIU/mL Urine Opiates Screen (Negative) Urine Methadone Screen (Negative) Ur Barbiturates Screen (Negative) Ur Phencyclidine Scrn (Negative) Ur Amphetamine Screen (Negative) U Benzodiazepines Scrn (Negative) Urine Cocaine Screen (Negative) U Cannabinoids Screen (Negative) Ethyl Alcohol (<10) mg/dL <Britni Meeks PA-C - Last Filed: 06/16/24 00:52> Lab Results 06/15/24 06/15/24 06/15/24 Range/Units 21:04 21:05 22:30 WBC 8.6 (4.5-10.0) K/mm3 RBC 4.96 (4.6-6.20) M/mm3 Hgb 15.8 (14.0-18.0) g/dL Hct 46.0 (42.0-52.0) % MCV 92.7 (80-100) fl MCH 31.9 (26-34) pg MCHC 34.3 (32-36) g/dl RDW 13.2 (11.5-14.5) % Plt Count 205 (150-375) k/mm3 MPV 8.8 (7.4-10.4) fl Immature Gran % (Auto) 0.2 (0-0.5) % Neut % (Auto) 66.6 (45.5-73.1) % Lymph % (Auto) 25.0 (18.3-44.2) % [place] % (Auto) 7.6 (2.6-8.5) % Eos % (Auto) 0.1 (0-4.4) % Baso % (Auto) 0.5 (0.2-1.2) % Lymph # (Auto) 2.14 (0.9-3.2) K/mm3 [place] # (Auto) 0.7 H (0.1-0.6) K/mm3 Eos # (Auto) 0.0 (0-0.3) K/mm3 Baso # (Auto) 0.0 (0.0-0.1) K/mm3 Abs Immat Gran (auto) 0.02 (0.00-0.031) K/mm3 Absolute Neuts (auto) 5.7 (1.3-6.7) K/mm3 Absolute Nucleated RBC 0.000 (0.0-0.012) K/mm3 Nucleated RBC % 0.0 (0.0-0.2) % PT 14.9 H (11.1-14.7) Seconds INR 1.1 APTT 30.0 (22.3-36.8) Seconds Sodium 141 (137-145) mmol/L Potassium 3.5 (3.4-5.0) mmol/L Chloride 108 H (98-107) mmol/L Carbon Dioxide 23 (22-30) mmol/L Anion Gap 10 (4-12) mmol/L BUN 26 H D (9-20) mg/dL Creatinine 1.29 (0.7-1.3) mg/dL Estim Creat Clear Calc Not Reportable Estimated GFR 57 L (59 - ) Glucose 105 (65-110) mg/dL Lactic Acid (0.7-2.0) mmol/L Calcium 9.3 (8.4-10.2) mg/dL Magnesium 2.3 (1.6-2.3) mg/dL Total Bilirubin 2.1 H (0.2-1.3) mg/dL AST 40 (17-59) U/L ALT 42 (6-50) U/L Alkaline Phosphatase 67 (38-126) U/L Total Creatine Kinase 277 H (55-170) U/L Troponin I < 0.012 (0.000-0.034) ng/mL NT-Pro-B Natriuret Pep 1380 H (19.9-100) pg/mL Total Protein 7.0 (6.3-8.2) g/dL Albumin 4.5 (3.5-5.1) g/dL Lipase 204 (23-300) U/L TSH (Reflex) 1.720 (0.465-4.68) uIU/mL Urine Opiates Screen Positive A (Negative) Urine Methadone Screen Negative (Negative) Ur Barbiturates Screen Negative (Negative) Ur Phencyclidine Scrn Negative (Negative) Ur Amphetamine Screen Negative (Negative) U Benzodiazepines Scrn Positive A (Negative) Urine Cocaine Screen Negative (Negative) U Cannabinoids Screen Positive A (Negative) Ethyl Alcohol < 10 (<10) mg/dL 06/15/24 06/15/24 Range/Units 23:26 23:27 WBC (4.5-10.0) K/mm3 RBC (4.6-6.20) M/mm3 Hgb (14.0-18.0) g/dL Hct (42.0-52.0) % MCV (80-100) fl MCH (26-34) pg MCHC (32-36) g/dl RDW (11.5-14.5) % Plt Count (150-375) k/mm3 MPV (7.4-10.4) fl Immature Gran % (Auto) (0-0.5) % Neut % (Auto) (45.5-73.1) % Lymph % (Auto) (18.3-44.2) % [place] % (Auto) (2.6-8.5) % Eos % (Auto) (0-4.4) % Baso % (Auto) (0.2-1.2) % Lymph # (Auto) (0.9-3.2) K/mm3 [place] # (Auto) (0.1-0.6) K/mm3 Eos # (Auto) (0-0.3) K/mm3 Baso # (Auto) (0.0-0.1) K/mm3 Abs Immat Gran (auto) (0.00-0.031) K/mm3 Absolute Neuts (auto) (1.3-6.7) K/mm3 Absolute Nucleated RBC (0.0-0.012) K/mm3 Nucleated RBC % (0.0-0.2) % PT (11.1-14.7) Seconds INR APTT (22.3-36.8) Seconds Sodium (137-145) mmol/L Potassium (3.4-5.0) mmol/L Chloride (98-107) mmol/L Carbon Dioxide (22-30) mmol/L Anion Gap (4-12) mmol/L BUN (9-20) mg/dL Creatinine (0.7-1.3) mg/dL Estim Creat Clear Calc Estimated GFR (59 - ) Glucose (65-110) mg/dL Lactic Acid 1.1 (0.7-2.0) mmol/L Calcium (8.4-10.2) mg/dL Magnesium (1.6-2.3) mg/dL Total Bilirubin (0.2-1.3) mg/dL AST (17-59) U/L ALT (6-50) U/L Alkaline Phosphatase (38-126) U/L Total Creatine Kinase (55-170) U/L Troponin I < 0.012 (0.000-0.034) ng/mL NT-Pro-B Natriuret Pep (19.9-100) pg/mL Total Protein (6.3-8.2) g/dL Albumin (3.5-5.1) g/dL Lipase (23-300) U/L TSH (Reflex) (0.465-4.68) uIU/mL Urine Opiates Screen (Negative) Urine Methadone Screen (Negative) Ur Barbiturates Screen (Negative) Ur Phencyclidine Scrn (Negative) Ur Amphetamine Screen (Negative) U Benzodiazepines Scrn (Negative) Urine Cocaine Screen (Negative) U Cannabinoids Screen (Negative) Ethyl Alcohol (<10) mg/dL <Jamaica Pleitez MD - Last Filed: 06/16/24 10:04> Discharge Plan Discharge Clinical Impression: Tremor, Hemorrhage of spleen, Anxiety, Abnormal EKG <Britni Meeks PA-C - Last Filed: 06/16/24 00:52> Patient Disposition: Still a Patient <Britni Meeks PA-C - Last Filed: 06/16/24 00:52> Condition: Stable <Britni Meeks PA-C - Last Filed: 06/16/24 00:52>
--- NOTE | 2024-06-15 21:03 | PC.NURSE ---
pt moved to ed 14 from ed 16 at this time. Pt given ekg, line, labs and placed on vehicle monitor technician. Pt verbalized left cp, sob during edp assessment.
[2024-06-15] MEDS: MORPHINE SULFATE (*CRX) 4 MG/ML INJ IV PUSH (21:10)
[2024-06-15] MEDS: LORazepam INJ (*CRX) 2 MG/ML VIAL 0.5 MG IV PUSH ×2 (21:10→23:40)
[2024-06-15 21:11] LABS: Basophils Percent Auto 0.5 % (0.2-1.2); Eosinophils Percent Auto 0.1 % (0-4.4); Hemoglobin 15.8 g/dL (14.0-18.0); Immature Granulocyte Absolute 0.02 K/mm3 (0.00-0.031); Immature Granulocyte Percent A 0.2 % (0-0.5); Lymphocytes Absolute Auto 2.14 K/mm3 (0.9-3.2); Mean Corpuscular HGB Conc 34.3 g/dl (32-36); Mean Corpuscular Hemoglobin 31.9 pg (26-34); Mean Corpuscular Volume 92.7 fl (80-100); Mean Platelet Volume 8.8 fl (7.4-10.4); Monocytes Absolute Auto 0.7 K/mm3 (0.1-0.6); Monocytes Percent Auto 7.6 % (2.6-8.5); Neutrophils Absolute Auto 5.7 K/mm3 (1.3-6.7); Neutrophils Percent Auto 66.6 % (45.5-73.1); Platelet Count Result 205 k/mm3 (150-375); Red Blood Count 4.96 M/mm3 (4.6-6.20); Red Cell Distribution Width 13.2 % (11.5-14.5); White Blood Count 8.6 K/mm3 (4.5-10.0)
[2024-06-15 21:22] LABS: INR 1.1; Prothrombin Time 14.9 Seconds (11.1-14.7)
[2024-06-15 21:23] LABS: Alanine Aminotransferase 42 U/L (6-50); Albumin Level 4.5 g/dL (3.5-5.1); Alkaline Phosphatase 67 U/L (38-126); Anion Gap 10 mmol/L (4-12); Aspartate Amino Transferase 40 U/L (17-59); Bilirubin,Total 2.1 mg/dL (0.2-1.3); Blood Urea Nitrogen 26 mg/dL (9-20); Calcium 9.3 mg/dL (8.4-10.2); Carbon Dioxide 23 mmol/L (22-30); Chloride 108 mmol/L (98-107); Estimated Glomerular Filt Rate 57; Glucose 105 mg/dL (65-110); Lipase 204 U/L (23-300); Potassium 3.5 mmol/L (3.4-5.0); Sodium 141 mmol/L (137-145)
[2024-06-15 21:24] LABS: Ethanol < 10 mg/dL (<10)
[2024-06-15 21:32] LABS: Magnesium 2.3 mg/dL (1.6-2.3)
[2024-06-15 21:35] LABS: NT Pro B Type Natriuretic Pept 1380 pg/mL (19.9-100); Troponin I < 0.012 ng/mL (0.000-0.034)
[2024-06-15 21:55] LABS: Creatine Kinase 277 U/L (55-170)
[2024-06-15 22:54] LABS: Amphetamine Screen Urine Negative (Negative); Barbiturate Screen Urine Negative (Negative); Benzodiazepines Screen Urine Positive (Negative); Cannabinoid Screen Urine Positive (Negative); Cocaine Screen Urine Negative (Negative); Methadone Screen Urine Negative (Negative); Opiate Screen Urine Positive (Negative); Phencyclidine Screen Urine Negative (Negative)
--- NOTE | 2024-06-15 23:20 | ECG_ITS ---
Test Date: 2024-06-15 23:27:37 Measurements Intervals [place] Rate: 97 P: 0 TN: 0 QRS: 8 QRSD: 168 T: 29 QT: 402 QTc: 513 Interpretive Statements ATRIAL FIBRILLATION RIGHT BUNDLE BRANCH BLOCK [120+ ms QRS DURATION, UPRIGHT V1, 40+ ms S IN I/aVL/V4/V5/V6] ST DEVIATION AND MARKED T-WAVE ABNORMALITY, CONSIDER ANTEROLATERAL ISCHEMIA [-0.5+ mV T-WAVE IN I/aVL/V3-V6] Compared to ECG 06/15/2024 20:58:05 NO SIGNIFICANT CHANGES Electronically Signed On 06-17-2024 15:24:36 CDT by Ruy Leon M.D.
[2024-06-15 23:52] LABS: Lactic Acid Reflex 1.1 mmol/L (0.7-2.0)
[2024-06-16] VITALS (44 sets, daily range): BP systolic 97–140; BP diastolic 72–104; PULSE 72–119; RESP 12–24; TEMP 36.3–37.1; O2SAT 96–100
[2024-06-16 00:02] LABS: Troponin I < 0.012 ng/mL (0.000-0.034)
--- NOTE | 2024-06-16 02:20 | P.HP_ITS ---
H&P: HPI History of Present Illness Date/Time: 06/16/24 02:20 Chief Complaint: abd pain and head jerks Narrative: 58-year-old male past medical history of congestive heart failure atrial fibrillation on Eliquis who presented to the ER on account of worsening abdominal pain and jerking of the head. Patient noted that he has been having intermittent jerking of his head the past 4 weeks, he noted no pattern or triggers. Also noted abd pain that has been going on the past 3 weeks but got worse the past few days. Described pain as left upper abd regions, dull, 6/10 in intensity. Denies any trauma or fall. No chest pain, SOB, vmoting, diarrhea and lightheadedness. ER eval notable for WI 105, RR 19, BP 140/96, saturating 99% on room air. Labs notable for hb 15.8, Bili 2., NT-proBNP [id number], UDS positive for opiates, benzos and cannabinoids. CT AP showed fluid collection subjacent to the spleen with somewat ill-defined splenic margin suggesting splenic laceration with hemoperitoneum. 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 Left lower quadrant abdominal pain BMI 25.0-25.9,adult BMI 24.0-24.9, adult Umbilical hernia Non-healing skin lesion Eye injury BMI 21.0-21.9, adult Screen for colon cancer Hematuria BMI 22.0-22.9, adult Patellofemoral syndrome, left Cardiomegaly Steatohepatitis Bladder wall thickening Prostate enlargement COPD (chronic obstructive pulmonary disease) DJD (degenerative joint disease) of cervical spine Rotator cuff tear Left inguinal hernia Abdominal hernia Anxiety disorder, unspecified Atrial fibrillation and flutter Congestive heart failure, unspecified Fatty liver Lumbar spondylosis Pulmonary emphysema Surgical History Surgical History H/O cardiac radiofrequency ablation H/O colonoscopy History of bladder surgery ablation History of vasectomy History of knee surgery History of bunionectomy History of inguinal hernia repair History of umbilical hernia repair Family History Family History Father No problems noted. Mother Thyroid activity decreased Fatty liver Stage 2 liver disease Sibling , covid-19 COVID-19 Other Diabetes mellitus Family history of coronary artery disease Family history of malignant neoplasm Hypertension Social History Social History Smoking status: Never smoker Second hand tobacco smoke exposure: Yes Alcohol intake: never Substance use: current Substance use type: marijuana Other substance usage details: OCCASIONAL Do You Feel Safe in your Home?: Yes Lack of Transportation: No Lack of Food: Never True Current Housing: I Have Housing Concerned About Future Housing: No Difficulty Paying Gas/Electric Bills: YES Difficulty Paying for Meds: No Currently Unemployed: No Education: High School Diploma/GED Difficulty w/ Childcare or Family Care: No Living arrangements: alone Additional living arrangements comments: is . 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 Gender identity (if verbalized by the patient): Male Spiritual care concerns: No Meds Home Medications and Allergies Home Medications ?Medication ?Instructions ?Recorded ?Confirmed ?Type metoprolol succinate 50 mg 50 mg PO DAILY 01/26/22 04/15/24 History tablet,extended release 24 hr tamsulosin 0.4 mg capsule (Flomax) 0.4 mg PO DAILY 05/04/22 04/15/24 History albuterol sulfate 90 mcg/actuation 2 inh inhalation Q6H PRN shortness 12/12/22 04/15/24 Rx aerosol inhaler of breath or wheezing #8.5 grams magnesium hydroxide 400 mg (170 mg mg PO 02/06/23 04/15/24 History magnesium) chewable tablet apixaban 5 mg tablet (Eliquis) 5 mg PO BID #180 tabs 08/03/23 04/15/24 Rx naloxone 4 mg/actuation nasal 4 mg intranasal Q2-3M PRN opioid 10/16/23 04/15/24 Rx spray (Narcan) overdose #2 ea fluticasone fur. 100 mcg-umeclid 1 inh inhalation DAILY 04/15/24 04/15/24 History 62.5 mcg-vilant 25 mcg inhalat.powder (Trelegy Ellipta) oxycodone 10 mg tablet 10 mg PO Q6H pain #120 tabs 05/23/24 Rx alprazolam 1 mg tablet (Xanax) 1 mg PO QID PRN anxiety #120 tabs 06/05/24 Rx Allergies Allergy/AdvReac Type Severity Reaction Status Date / Time ciprofloxacin Allergy Intermediate Rash Verified 06/15/24 17:41 Vital Signs Vital Signs - 24 hr 06/15/24 18:08 06/15/24 20:56 06/15/24 20:58 Temperature 98.6 F Pulse Rate 105 H 131 H 102 H Respiratory Rate 19 21 H 16 Blood Pressure 140/96 H 154/95 H Pulse Oximetry 99 99 100 Oxygen Delivery Room Air 06/15/24 21:00 06/15/24 21:01 06/15/24 21:15 Temperature Pulse Rate 124 H 113 H 123 H Respiratory Rate 17 13 19 Blood Pressure 140/106 H Pulse Oximetry 97 99 Oxygen Delivery 06/15/24 21:54 06/15/24 22:03 06/15/24 22:04 Temperature Pulse Rate 102 H 85 81 Respiratory Rate 15 15 13 Blood Pressure 123/99 H 123/99 H Pulse Oximetry 100 99 99 Oxygen Delivery 06/15/24 22:05 06/15/24 22:15 06/15/24 22:16 Temperature Pulse Rate 83 76 93 Respiratory Rate 16 16 20 Blood Pressure 126/96 H Pulse Oximetry 99 99 98 Oxygen Delivery 06/15/24 22:30 06/15/24 22:45 06/15/24 22:46 Temperature Pulse Rate 97 87 94 Respiratory Rate 18 21 H 14 Blood Pressure 136/102 H Pulse Oximetry Oxygen Delivery 06/15/24 23:00 06/15/24 23:01 06/15/24 23:15 Temperature Pulse Rate 87 96 90 Respiratory Rate 16 13 15 Blood Pressure 126/99 H Pulse Oximetry Oxygen Delivery 06/15/24 23:31 06/15/24 23:46 06/16/24 00:00 Temperature Pulse Rate 92 91 104 H Respiratory Rate 13 13 18 Blood Pressure 127/101 H 121/89 Pulse Oximetry Oxygen Delivery 06/16/24 00:20 06/16/24 00:33 06/16/24 00:47 Temperature Pulse Rate 119 H 112 H 112 H Respiratory Rate 24 H 23 H 23 H Blood Pressure Pulse Oximetry Oxygen Delivery 06/16/24 01:07 06/16/24 01:15 06/16/24 01:30 Temperature Pulse Rate 93 100 111 H Respiratory Rate 20 20 24 H Blood Pressure Pulse Oximetry 100 98 99 Oxygen Delivery 06/16/24 01:45 06/16/24 02:01 Temperature Pulse Rate 96 90 Respiratory Rate 20 22 H Blood Pressure Pulse Oximetry 99 98 Oxygen Delivery Exam Narrative: General: alert and comfortable Eyes: EOMI, PERRLA ENNT External ears normal, Neck is supple, no masses, Respiratory systems: Clear to auscultation Cardiovascular S1, S2, normal rhythm, no murmur, rub, or gallop; no thrill or palpable murmurs on palpation. Gastrointestinal: soft, LUQ tenderness , and non-distended abdomen with no masses; BS present Skin: no rash, lesions, ulcerations, subcutaneous nodules or induration Musculoskeletal: no abnormality and no tenderness, normal ROM Neurologic: Alert and oriented x3, non focal Mental Status Exam: normal affect H&P: Results Labs Labs: Short CBC 06/15/24 Range/Units 21:04 WBC 8.6 (4.5-10.0) K/mm3 Hgb 15.8 (14.0-18.0) g/dL Hct 46.0 (42.0-52.0) % Plt Count 205 (150-375) k/mm3 BMP 06/15/24 21:05 Sodium 141 Potassium 3.5 Chloride 108 H Carbon Dioxide 23 BUN 26 H D Creatinine 1.29 Glucose 105 Calcium 9.3 Cardiac Enzymes 06/15/24 06/15/24 Range/Units 21:05 23:26 Total Creatine Kinase 277 H (55-170) U/L Troponin I < 0.012 < 0.012 (0.000-0.034) ng/mL Liver Function 06/15/24 Range/Units 21:05 Total Bilirubin 2.1 H (0.2-1.3) mg/dL AST 40 (17-59) U/L ALT 42 (6-50) U/L Alkaline Phosphatase 67 (38-126) U/L Albumin 4.5 (3.5-5.1) g/dL Assessment and Plan Assessment and plan (1) Splenic laceration: Code(s): S36.039A - Unspecified laceration of spleen, initial encounter Status: Acute Plan Splenic laceration with hematoma CT AP reviewed NPO, IVF GEn surgery consulted from ER Hold Eliquis ?Myoclonic seizures CT head, EEG pending Started on Keppra Neurology consulted Afib Continue rate control and hold Eliquis due to splenic hematoma monitor COPD not in exacerbation PRN duonebs monitor HTN titrate home meds with clinical course DVt prophylaxis on SCDs, no anticoagulation due to splenic hematoma Full code Surrogate decision maker, Father, Stevie Lopes
[2024-06-16] MEDS: SODIUM CHLORIDE 0.9% IV 1,000 ML 75 ML IV CONT (04:12)
[2024-06-16 06:55] LABS: Troponin I < 0.012 ng/mL (0.000-0.034)
--- NOTE | 2024-06-16 08:44 | PM.IMPN ---
Progress Note: A&P Assessment and Plan (1) Splenic laceration: Code(s): S36.039A - Unspecified laceration of spleen, initial encounter Status: Acute Plan 58-year-old male past medical history of congestive heart failure atrial fibrillation on Eliquis who presented to the ER on account of worsening abdominal pain and jerking of the head. Patient noted that he has been having intermittent jerking of his head the past 4 weeks, he noted no pattern or triggers. Also noted abd pain that has been going on the past 3 weeks but got worse the past few days. Splenic laceration with hematoma CT:Relative high density fluid collection subjacent to the spleen, with somewhat ill-defined inferior splenic margin, suggesting splenic laceration or rupture with hemoperitoneum NPO, IVF GEn surgery consulted from ER Hold Eliquis Follow-up CBC and follow-up hemoglobin and q.[address] head, EEG pending Started on Keppra Neurology consulted Afib Continue rate control Continue to hold Eliquis due to splenic hematoma monitor COPD not in exacerbation PRN duonebs monitor HTN titrate home meds with clinical course DVt prophylaxis on SCDs, no anticoagulation due to splenic hematoma Full code Surrogate decision maker, Father, Stevie Lopes Subjective Date/time seen: 06/16/24 08:44 Interval history: Patient is afebrile, blood pressure stable, patient is a tachycardia tachypnea, pulse ox 100% on room air. Patient still has left lower quadrant pain, has some shortness breath, denies cough, chest pain, headache, focal weakness Repeat CBC and chemistry, follow-up hemoglobin q.6 hours Exam Narrative: GENERAL: Pleasant, in no acute distress. Well-nourished. - EYES: EOMI. Anicteric. - HENT: Moist mucous membranes. - LUNGS: Clear to auscultation bilaterally, no wheezing, rhonchi, or rales. - CARDIOVASCULAR: Irregularly irregular rhythm. No murmur. No JVD. - ABDOMEN: Soft, left upper quadrant tender and non-distended. No palpable masses. - EXTREMITIES: No edema. Peripheral pulses 2+. Non-tender. - NEUROLOGIC: No focal neurological deficits. CN II-XII grossly intact. - PSYCHIATRIC: Awake, Alert and oriented x 3. Appropriate mood and affect. - SKIN: No rashes or lesions. Warm. - LYMPH: No cervical lymphadenopathy. Objective Data Vital Signs Vital Signs: Vital Signs - 24 hr 06/15/24 18:08 06/15/24 20:56 06/15/24 20:58 Temperature 98.6 F Pulse Rate 105 H 131 H 102 H Respiratory Rate 19 21 H 16 Blood Pressure 140/96 H 154/95 H Pulse Oximetry 99 99 100 Oxygen Delivery Room Air 06/15/24 21:00 06/15/24 21:01 06/15/24 21:15 Temperature Pulse Rate 124 H 113 H 123 H Respiratory Rate 17 13 19 Blood Pressure 140/106 H Pulse Oximetry 97 99 Oxygen Delivery 06/15/24 21:54 06/15/24 22:03 06/15/24 22:04 Temperature Pulse Rate 102 H 85 81 Respiratory Rate 15 15 13 Blood Pressure 123/99 H 123/99 H Pulse Oximetry 100 99 99 Oxygen Delivery 06/15/24 22:05 06/15/24 22:15 06/15/24 22:16 Temperature Pulse Rate 83 76 93 Respiratory Rate 16 16 20 Blood Pressure 126/96 H Pulse Oximetry 99 99 98 Oxygen Delivery 06/15/24 22:30 06/15/24 22:45 06/15/24 22:46 Temperature Pulse Rate 97 87 94 Respiratory Rate 18 21 H 14 Blood Pressure 136/102 H Pulse Oximetry Oxygen Delivery 06/15/24 23:00 06/15/24 23:01 06/15/24 23:15 Temperature Pulse Rate 87 96 90 Respiratory Rate 16 13 15 Blood Pressure 126/99 H Pulse Oximetry Oxygen Delivery 06/15/24 23:31 06/15/24 23:46 06/16/24 00:00 Temperature Pulse Rate 92 91 104 H Respiratory Rate 13 13 18 Blood Pressure 127/101 H 121/89 Pulse Oximetry Oxygen Delivery 06/16/24 00:20 06/16/24 00:33 06/16/24 00:47 Temperature Pulse Rate 119 H 112 H 112 H Respiratory Rate 24 H 23 H 23 H Blood Pressure Pulse Oximetry Oxygen Delivery 06/16/24 01:07 06/16/24 01:15 06/16/24 01:30 Temperature Pulse Rate 93 100 111 H Respiratory Rate 20 20 24 H Blood Pressure Pulse Oximetry 100 98 99 Oxygen Delivery 06/16/24 01:45 06/16/24 02:01 06/16/24 03:02 Temperature Pulse Rate 96 90 97 Respiratory Rate 20 22 H 16 Blood Pressure 140/100 H Pulse Oximetry 99 98 98 Oxygen Delivery 06/16/24 03:03 06/16/24 03:15 06/16/24 03:30 Temperature Pulse Rate 97 96 98 Respiratory Rate 19 14 14 Blood Pressure Pulse Oximetry 99 97 98 Oxygen Delivery 06/16/24 03:31 06/16/24 03:45 06/16/24 04:00 Temperature Pulse Rate 94 81 92 Respiratory Rate 16 13 21 H Blood Pressure 125/101 H Pulse Oximetry 98 97 97 Oxygen Delivery 06/16/24 04:01 06/16/24 04:15 06/16/24 04:30 Temperature Pulse Rate 89 91 84 Respiratory Rate 22 H 12 16 Blood Pressure 125/89 Pulse Oximetry 98 99 98 Oxygen Delivery 06/16/24 04:31 06/16/24 04:45 06/16/24 05:26 Temperature Pulse Rate 84 94 92 Respiratory Rate 15 15 20 Blood Pressure 131/102 H Pulse Oximetry 98 99 99 Oxygen Delivery 06/16/24 05:31 06/16/24 05:48 06/16/24 06:01 Temperature Pulse Rate 97 91 86 Respiratory Rate 22 H 16 18 Blood Pressure Pulse Oximetry 100 98 97 Oxygen Delivery 06/16/24 06:15 06/16/24 06:30 06/16/24 06:45 Temperature Pulse Rate 88 88 95 Respiratory Rate 16 14 13 Blood Pressure Pulse Oximetry 99 98 98 Oxygen Delivery 06/16/24 07:00 06/16/24 07:05 06/16/24 07:06 Temperature Pulse Rate 89 110 H 88 Respiratory Rate 17 17 15 Blood Pressure 118/86 Pulse Oximetry 98 98 100 Oxygen Delivery 06/16/24 07:15 06/16/24 07:30 06/16/24 07:31 Temperature Pulse Rate 103 H 104 H 101 H Respiratory Rate 22 H 17 21 H Blood Pressure 118/93 H Pulse Oximetry 98 99 100 Oxygen Delivery 06/16/24 07:45 06/16/24 08:00 06/16/24 08:01 Temperature Pulse Rate 97 106 H 96 Respiratory Rate 15 22 H 19 Blood Pressure 135/104 H Pulse Oximetry 99 Oxygen Delivery 06/16/24 08:35 Temperature Pulse Rate 107 H Respiratory Rate 20 Blood Pressure 135/104 H Pulse Oximetry 100 Oxygen Delivery Meds/Results Medications: Active Medications Generic Name Dose Route Start Last Admin Trade Name Freq PRN Reason Stop Dose Admin Levetiracetam 1,000 mg in 100 mls @ 400 mls/hr 06/16/24 09:00 Keppra Iv IVPB Q12HR FRANCISCO Sodium Chloride 1,000 mls @ 75 mls/hr 06/16/24 02:35 06/16/24 04:12 Normal Saline Iv IV CONT 75 mls/hr .[id number] FRANCISCO Administration Radiology Results: ITS Impressions Chest X-Ray 06/15/24 21:49 IMPRESSION: Globular enlarged cardiac silhouette which may be due to cardiomegaly cervical pericardial effusion is not excluded Pulmonary vascular prominence and redistribution suggesting pulmonary venous hypertension, mild congestive heart failure Chest/Abdomen/Pelvis CTA 06/15/24 21:53 IMPRESSION: Relative high density fluid collection subjacent to the spleen, with somewhat ill-defined inferior splenic margin, suggesting splenic laceration or rupture with hemoperitoneum Cardiomegaly, mild pericardial effusion Dr. Cheng telephoned the findings to physician human resources executive assistant Britni in the emergency room on 06/15/2024 at [address] 06/16/24 05:47 IMPRESSION: 1. Normal brain. Labs Labs: Laboratory Results - last 24 hr 06/15/24 06/15/24 06/15/24 21:04 21:05 22:30 WBC 8.6 RBC 4.96 Hgb 15.8 Hct 46.0 MCV 92.7 MCH 31.9 MCHC 34.3 RDW 13.2 Plt Count 205 MPV 8.8 Immature Gran % (Auto) 0.2 Neut % (Auto) 66.6 Lymph % (Auto) 25.0 [place] % (Auto) 7.6 Eos % (Auto) 0.1 Baso % (Auto) 0.5 Lymph # (Auto) 2.14 [place] # (Auto) 0.7 H Eos # (Auto) 0.0 Baso # (Auto) 0.0 Abs Immat Gran (auto) 0.02 Absolute Neuts (auto) 5.7 Absolute Nucleated RBC 0.000 Nucleated RBC % 0.0 PT 14.9 H INR 1.1 APTT 30.0 Sodium 141 Potassium 3.5 Chloride 108 H Carbon Dioxide 23 Anion Gap 10 BUN 26 H D Creatinine 1.29 Estim Creat Clear Calc Not Reportable Estimated GFR 57 L Glucose 105 Lactic Acid Calcium 9.3 Magnesium 2.3 Total Bilirubin 2.1 H AST 40 ALT 42 Alkaline Phosphatase 67 Total Creatine Kinase 277 H Troponin I < 0.012 NT-Pro-B Natriuret Pep 1380 H Total Protein 7.0 Albumin 4.5 Lipase 204 TSH (Reflex) 1.720 Urine Opiates Screen Positive A Urine Methadone Screen Negative Ur Barbiturates Screen Negative Ur Phencyclidine Scrn Negative Ur Amphetamine Screen Negative U Benzodiazepines Scrn Positive A Urine Cocaine Screen Negative U Cannabinoids Screen Positive A Ethyl Alcohol < 10 06/15/24 06/15/24 06/16/24 23:26 23:27 06:23 WBC RBC Hgb Hct MCV MCH MCHC RDW Plt Count MPV Immature Gran % (Auto) Neut % (Auto) Lymph % (Auto) [place] % (Auto) Eos % (Auto) Baso % (Auto) Lymph # (Auto) [place] # (Auto) Eos # (Auto) Baso # (Auto) Abs Immat Gran (auto) Absolute Neuts (auto) Absolute Nucleated RBC Nucleated RBC % PT INR APTT Sodium Potassium Chloride Carbon Dioxide Anion Gap BUN Creatinine Estim Creat Clear Calc Estimated GFR Glucose Lactic Acid 1.1 Calcium Magnesium Total Bilirubin AST ALT Alkaline Phosphatase Total Creatine Kinase Troponin I < 0.012 < 0.012 NT-Pro-B Natriuret Pep Total Protein Albumin Lipase TSH (Reflex) Urine Opiates Screen Urine Methadone Screen Ur Barbiturates Screen Ur Phencyclidine Scrn Ur Amphetamine Screen U Benzodiazepines Scrn Urine Cocaine Screen U Cannabinoids Screen Ethyl Alcohol
--- NOTE | 2024-06-16 08:53 | ADMGEN ---
This patient, Miguelito Lopes, was admitted to Medical Room 349-01. Patient/family oriented to hospital policies and general routines including ID bracelet, bed and alarms, visiting hours, pain management, procedures, bathroom and other care routines, personal items, smoking policy, room service/diet, and visiting hours. Information on how to activate the Rapid Response Team has been discussed. Patient/Family are encouraged to report perceived risks to care and to ask questions if they do not understand what they are told or what they should do.
[2024-06-16 09:13] LABS: Basophils Absolute Auto 0.1 K/mm3 (0.0-0.1); Basophils Percent Auto 0.7 % (0.2-1.2); Eosinophils Percent Auto 0.1 % (0-4.4); Hematocrit 43.2 % (42.0-52.0); Hemoglobin 14.7 g/dL (14.0-18.0); Immature Granulocyte Absolute 0.02 K/mm3 (0.00-0.031); Immature Granulocyte Percent A 0.3 % (0-0.5); Lymphocytes Absolute Auto 1.94 K/mm3 (0.9-3.2); Lymphocytes Percent Auto 26.3 % (18.3-44.2); Mean Corpuscular Hemoglobin 31.9 pg (26-34); Mean Corpuscular Volume 93.7 fl (80-100); Mean Platelet Volume 9.6 fl (7.4-10.4); Monocytes Absolute Auto 0.5 K/mm3 (0.1-0.6); Monocytes Percent Auto 6.5 % (2.6-8.5); Neutrophils Absolute Auto 4.9 K/mm3 (1.3-6.7); Neutrophils Percent Auto 66.1 % (45.5-73.1); Platelet Count Result 197 k/mm3 (150-375); Red Blood Count 4.61 M/mm3 (4.6-6.20); Red Cell Distribution Width 13.3 % (11.5-14.5); White Blood Count 7.4 K/mm3 (4.5-10.0)
[2024-06-16 10:33] LABS: Anion Gap 8 mmol/L (4-12); Blood Urea Nitrogen 21 mg/dL (9-20); Calcium 9.1 mg/dL (8.4-10.2); Carbon Dioxide 26 mmol/L (22-30); Chloride 105 mmol/L (98-107); Estimated Glomerular Filt Rate > 60; Glucose 109 mg/dL (65-110); Potassium 4.2 mmol/L (3.4-5.0); Sodium 139 mmol/L (137-145)
[2024-06-16] MEDS: levETIRAcetam 1000MG/NACL100ML 1,000 MG/100 ML BAG 400 MG IVPB ×2 (11:07→20:29)
--- NOTE | 2024-06-16 11:34 | P.CONGS_ITS ---
Assessment and Plan Assessment and plan (1) Splenic laceration: Code(s): S36.039A - Unspecified laceration of spleen, initial encounter Status: Acute Assessment and Plan: * This appears to be subacute. His abdominal pain has been present x a few months, but he cannot recall any recent injury or trauma. His abdominal exam is fairly benign with minimal pain and tenderness in the LUQ. He is hemodynamically stable. Agree with monitoring for now, serial H/H, continue supportive care. (2) Myoclonic jerking: Code(s): G25.3 - Myoclonus Status: Acute Assessment and Plan: * This is the reason for his presentation to the ER. Neurology consulted. EEG today. (3) Chronic back pain: Qualifiers: Back pain location: back pain in unspecified location Back pain laterality: unspecified Qualified Code(s): M54.9 - Dorsalgia, unspecified; G89.29 - Other chronic pain Code(s): M54.9 - Dorsalgia, unspecified; G89.29 - Other chronic pain Status: Acute (4) Atrial fibrillation and flutter: Code(s): I48.91 - Unspecified atrial fibrillation; I48.92 - Unspecified atrial flutter Status: Acute Assessment and Plan: * Rate controlled. Eliquis on hold for splenic laceration. (5) Anticoagulated by anticoagulation treatment: Code(s): Z79.01 - exterminator termite (current) use of anticoagulants Status: Acute Assessment and Plan: * Hold Eliquis for now Plan I have discussed the patient's case and plan of care with Dr. Walters. History of Present Illness Consult details Consult date: 06/16/24 Reason for consult: other (Splenic hemorrhage) Requesting physician: Britni Meeks PA-C Narrative: This is a 58-year-old man with a history of CHF, AFib on Eliquis, and anxiety/depression, who we have been asked to see in surgical consultation for splenic laceration. He came into the ED last night with complaints of uncontrollable movements and shooting pain of his arms and legs x a few months. He has developed jerking movements of his bilateral lower extremities over the last few days with his legs buckling, which ultimately made him come into the ED for evaluation. He also reports some LUQ abdominal pain with gradual onset starting a few months ago. He denies any abdominal trauma, falls, or MVA in the past few months. He endorses increased anxiety and stress at home with having to help take care of his mother. Due to the stress, he has also not been eating much, but denies poor appetite, nausea, or vomiting. He has had some intermittent constipation, but no blood in stools or other complaints. Workup in the ED significant for CTA chest, abd, pelvis showing evidence of a high density fluid collection subjacent to the spleen with somewhat ill-defined inferior splenic margin, suggesting splenic laceration or rupture with hemoperitoneum. Also seen is cardiomegaly with mild pericardial effusion. CT head negative. Hemoglobin stable at 15.8 and 14.7 today. He has had mild tachycardia intermittently in the low 100's, but blood pressure has been stable. On my exam, he is denying any abdominal pain, but reports a fullness sensation in the LUQ with tenderness in the LUQ. No aggravating or alleviating factors. He denies taking any medications at home for the discomfort. 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 Left lower quadrant abdominal pain BMI 25.0-25.9,adult BMI 24.0-24.9, adult Umbilical hernia Non-healing skin lesion Eye injury BMI 21.0-21.9, adult Screen for colon cancer Hematuria BMI 22.0-22.9, adult Patellofemoral syndrome, left Cardiomegaly Steatohepatitis Bladder wall thickening Prostate enlargement COPD (chronic obstructive pulmonary disease) DJD (degenerative joint disease) of cervical spine Rotator cuff tear Left inguinal hernia Abdominal hernia Anxiety disorder, unspecified Atrial fibrillation and flutter Congestive heart failure, unspecified Fatty liver Lumbar spondylosis Pulmonary emphysema Surgical History Surgical History H/O cardiac radiofrequency ablation H/O colonoscopy History of bladder surgery ablation History of vasectomy History of knee surgery History of bunionectomy History of inguinal hernia repair History of umbilical hernia repair Family History Family History Father No problems noted. Mother Thyroid activity decreased Fatty liver Stage 2 liver disease Sibling , covid-19 COVID-19 Other Diabetes mellitus Family history of coronary artery disease Family history of malignant neoplasm Hypertension Social History Social History Smoking status: Never smoker Second hand tobacco smoke exposure: Yes Alcohol intake: never Substance use: current Substance use type: marijuana Other substance usage details: OCCASIONAL Do You Feel Safe in your Home?: Yes Lack of Transportation: No Lack of Food: Never True Current Housing: I Have Housing Concerned About Future Housing: No Difficulty Paying Gas/Electric Bills: YES Difficulty Paying for Meds: No Currently Unemployed: No Education: High School Diploma/GED Difficulty w/ Childcare or Family Care: No Living arrangements: alone Additional living arrangements comments: is . 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 Gender identity (if verbalized by the patient): Male Spiritual care concerns: No Meds Home Medications and Allergies Home Medications ?Medication ?Instructions ?Recorded ?Confirmed ?Type metoprolol succinate 50 mg 50 mg PO DAILY 01/26/22 06/16/24 History tablet,extended release 24 hr tamsulosin 0.4 mg capsule (Flomax) 0.4 mg PO DAILY 05/04/22 06/16/24 History albuterol sulfate 90 mcg/actuation 2 inh inhalation Q6H PRN shortness 12/12/22 06/16/24 Rx aerosol inhaler of breath or wheezing #8.5 grams magnesium hydroxide 400 mg (170 mg 400 mg PO DAILY 02/06/23 06/16/24 History magnesium) chewable tablet apixaban 5 mg tablet (Eliquis) 5 mg PO BID #180 tabs 08/03/23 06/16/24 Rx naloxone 4 mg/actuation nasal 4 mg intranasal Q2-3M PRN opioid 10/16/23 06/16/24 Rx spray (Narcan) overdose #2 ea fluticasone fur. 100 mcg-umeclid 1 inh inhalation DAILY 04/15/24 06/16/24 History 62.5 mcg-vilant 25 mcg inhalat.powder (Trelegy Ellipta) oxycodone 10 mg tablet 10 mg PO Q6H pain #120 tabs 05/23/24 06/16/24 Rx alprazolam 1 mg tablet (Xanax) 1 mg PO QID PRN anxiety #120 tabs 06/05/24 06/16/24 Rx Allergies Allergy/AdvReac Type Severity Reaction Status Date / Time ciprofloxacin Allergy Intermediate Rash Verified 06/15/24 17:41 Vital Signs Vital Signs - 24 hr 06/15/24 18:08 06/15/24 20:56 06/15/24 20:58 Temperature 98.6 F Pulse Rate 105 H 131 H 102 H Respiratory Rate 19 21 H 16 Blood Pressure 140/96 H 154/95 H Pulse Oximetry 99 99 100 Oxygen Delivery Room Air 06/15/24 21:00 06/15/24 21:01 06/15/24 21:15 Temperature Pulse Rate 124 H 113 H 123 H Respiratory Rate 17 13 19 Blood Pressure 140/106 H Pulse Oximetry 97 99 Oxygen Delivery 06/15/24 21:54 06/15/24 22:03 06/15/24 22:04 Temperature Pulse Rate 102 H 85 81 Respiratory Rate 15 15 13 Blood Pressure 123/99 H 123/99 H Pulse Oximetry 100 99 99 Oxygen Delivery 06/15/24 22:05 06/15/24 22:15 06/15/24 22:16 Temperature Pulse Rate 83 76 93 Respiratory Rate 16 16 20 Blood Pressure 126/96 H Pulse Oximetry 99 99 98 Oxygen Delivery 06/15/24 22:30 06/15/24 22:45 06/15/24 22:46 Temperature Pulse Rate 97 87 94 Respiratory Rate 18 21 H 14 Blood Pressure 136/102 H Pulse Oximetry Oxygen Delivery 06/15/24 23:00 06/15/24 23:01 06/15/24 23:15 Temperature Pulse Rate 87 96 90 Respiratory Rate 16 13 15 Blood Pressure 126/99 H Pulse Oximetry Oxygen Delivery 06/15/24 23:31 06/15/24 23:46 06/16/24 00:00 Temperature Pulse Rate 92 91 104 H Respiratory Rate 13 13 18 Blood Pressure 127/101 H 121/89 Pulse Oximetry Oxygen Delivery 06/16/24 00:20 06/16/24 00:33 06/16/24 00:47 Temperature Pulse Rate 119 H 112 H 112 H Respiratory Rate 24 H 23 H 23 H Blood Pressure Pulse Oximetry Oxygen Delivery 06/16/24 01:07 06/16/24 01:15 06/16/24 01:30 Temperature Pulse Rate 93 100 111 H Respiratory Rate 20 20 24 H Blood Pressure Pulse Oximetry 100 98 99 Oxygen Delivery 06/16/24 01:45 06/16/24 02:01 06/16/24 03:02 Temperature Pulse Rate 96 90 97 Respiratory Rate 20 22 H 16 Blood Pressure 140/100 H Pulse Oximetry 99 98 98 Oxygen Delivery 06/16/24 03:03 06/16/24 03:15 06/16/24 03:30 Temperature Pulse Rate 97 96 98 Respiratory Rate 19 14 14 Blood Pressure Pulse Oximetry 99 97 98 Oxygen Delivery 06/16/24 03:31 06/16/24 03:45 06/16/24 04:00 Temperature Pulse Rate 94 81 92 Respiratory Rate 16 13 21 H Blood Pressure 125/101 H Pulse Oximetry 98 97 97 Oxygen Delivery 06/16/24 04:01 06/16/24 04:15 06/16/24 04:30 Temperature Pulse Rate 89 91 84 Respiratory Rate 22 H 12 16 Blood Pressure 125/89 Pulse Oximetry 98 99 98 Oxygen Delivery 06/16/24 04:31 06/16/24 04:45 06/16/24 05:26 Temperature Pulse Rate 84 94 92 Respiratory Rate 15 15 20 Blood Pressure 131/102 H Pulse Oximetry 98 99 99 Oxygen Delivery 06/16/24 05:31 06/16/24 05:48 06/16/24 06:01 Temperature Pulse Rate 97 91 86 Respiratory Rate 22 H 16 18 Blood Pressure Pulse Oximetry 100 98 97 Oxygen Delivery 06/16/24 06:15 06/16/24 06:30 06/16/24 06:45 Temperature Pulse Rate 88 88 95 Respiratory Rate 16 14 13 Blood Pressure Pulse Oximetry 99 98 98 Oxygen Delivery 06/16/24 07:00 06/16/24 07:05 06/16/24 07:06 Temperature Pulse Rate 89 110 H 88 Respiratory Rate 17 17 15 Blood Pressure 118/86 Pulse Oximetry 98 98 100 Oxygen Delivery 06/16/24 07:15 06/16/24 07:30 06/16/24 07:31 Temperature Pulse Rate 103 H 104 H 101 H Respiratory Rate 22 H 17 21 H Blood Pressure 118/93 H Pulse Oximetry 98 99 100 Oxygen Delivery 06/16/24 07:45 06/16/24 08:00 06/16/24 08:01 Temperature Pulse Rate 97 106 H 96 Respiratory Rate 15 22 H 19 Blood Pressure 135/104 H Pulse Oximetry 99 Oxygen Delivery 06/16/24 08:35 Temperature Pulse Rate 107 H Respiratory Rate 20 Blood Pressure 135/104 H Pulse Oximetry 100 Oxygen Delivery Exam 2 Const: General: comfortable and no acute distress Nutritional Appearance: t hin Orientation/consciousness: patient oriented x3 HENMT: Head: normocephalic and atraumatic Ears: hearing grossly normal bilaterally Mouth: Yes moist mucous membranes Eyes: General: appearance normal, both eyes and all related structures P upils: Equal, round and reactive pupils present Neck: Neck: normal visual inspection and full ROM Resp: Effort & Inspection: no respiratory distress Auscultation: clear to auscultation bilaterally Cardio: Rate: regular rate Rhythm: regular rhythm Peripheral pulses: P eripheral pulses 2+ throughout GI: Inspection: non-distended GI Palp: Yes Soft to palpation, Yes Tenderness to palpation present (GI) (mild TTP in LUQ and epigastric area), No Guarding due to palpation present (GI) and No Rebound tenderness present A uscultation: normal bowel sounds Skin: General skin exam: normal color Neuro: General: moves all extremities and no focal motor deficits Speech: n ormal speech Motor exam (neuro): 5/5 motor strength present throughout Extrem: General: normal to inspection and no edema Psych: Mental Status: mental status grossly normal Attitude: cooperative Insight: Good insight present (Psych) Judgement: Good judgement present (Psych) Results Labs 06/16/24 13:06 06/16/24 06:23 Labs: Abnormal lab results 06/15/24 06/15/24 06/15/24 Range/Units 21:04 21:05 22:30 [place] # (Auto) 0.7 H (0.1-0.6) K/mm3 PT 14.9 H (11.1-14.7) Seconds Chloride 108 H (98-107) mmol/L BUN 26 H D (9-20) mg/dL Estimated GFR 57 L (59 - ) Total Bilirubin 2.1 H (0.2-1.3) mg/dL Total Creatine Kinase 277 H (55-170) U/L NT-Pro-B Natriuret Pep 1380 H (19.9-100) pg/mL Urine Opiates Screen Positive A (Negative) U Benzodiazepines Scrn Positive A (Negative) U Cannabinoids Screen Positive A (Negative) 06/16/24 Range/Units 06:23 [place] # (Auto) (0.1-0.6) K/mm3 PT (11.1-14.7) Seconds Chloride (98-107) mmol/L BUN 21 H (9-20) mg/dL Estimated GFR (59 - ) Total Bilirubin (0.2-1.3) mg/dL Total Creatine Kinase (55-170) U/L NT-Pro-B Natriuret Pep (19.9-100) pg/mL Urine Opiates Screen (Negative) U Benzodiazepines Scrn (Negative) U Cannabinoids Screen (Negative) Diabetes panel 06/15/24 06/16/24 Range/Units 21:05 06:23 Sodium 141 139 (137-145) mmol/L Potassium 3.5 4.2 (3.4-5.0) mmol/L Chloride 108 H 105 (98-107) mmol/L Carbon Dioxide 23 26 (22-30) mmol/L BUN 26 H D 21 H (9-20) mg/dL Creatinine 1.29 1.19 (0.7-1.3) mg/dL Glucose 105 109 (65-110) mg/dL Calcium 9.3 9.1 (8.4-10.2) mg/dL AST 40 (17-59) U/L ALT 42 (6-50) U/L Alkaline Phosphatase 67 (38-126) U/L Total Protein 7.0 (6.3-8.2) g/dL Albumin 4.5 (3.5-5.1) g/dL Calcium panel 06/15/24 06/16/24 Range/Units 21:05 06:23 Calcium 9.3 9.1 (8.4-10.2) mg/dL Albumin 4.5 (3.5-5.1) g/dL Pituitary panel 06/15/24 06/16/24 Range/Units 21:05 06:23 Sodium 141 139 (137-145) mmol/L Potassium 3.5 4.2 (3.4-5.0) mmol/L Chloride 108 H 105 (98-107) mmol/L Carbon Dioxide 23 26 (22-30) mmol/L BUN 26 H D 21 H (9-20) mg/dL Creatinine 1.29 1.19 (0.7-1.3) mg/dL Glucose 105 109 (65-110) mg/dL Calcium 9.3 9.1 (8.4-10.2) mg/dL Adrenal panel 06/15/24 06/16/24 Range/Units 21:05 06:23 Sodium 141 139 (137-145) mmol/L Potassium 3.5 4.2 (3.4-5.0) mmol/L Chloride 108 H 105 (98-107) mmol/L Carbon Dioxide 23 26 (22-30) mmol/L BUN 26 H D 21 H (9-20) mg/dL Creatinine 1.29 1.19 (0.7-1.3) mg/dL Glucose 105 109 (65-110) mg/dL Calcium 9.3 9.1 (8.4-10.2) mg/dL Total Bilirubin 2.1 H (0.2-1.3) mg/dL AST 40 (17-59) U/L ALT 42 (6-50) U/L Alkaline Phosphatase 67 (38-126) U/L Total Protein 7.0 (6.3-8.2) g/dL Albumin 4.5 (3.5-5.1) g/dL All other labs normal. Imaging Additional studies: ITS Impressions Chest X-Ray 06/15/24 21:49 IMPRESSION: Globular enlarged cardiac silhouette which may be due to cardiomegaly cervical pericardial effusion is not excluded Pulmonary vascular prominence and redistribution suggesting pulmonary venous hypertension, mild congestive heart failure Chest/Abdomen/Pelvis CTA 06/15/24 21:53 IMPRESSION: Relative high density fluid collection subjacent to the spleen, with somewhat ill-defined inferior splenic margin, suggesting splenic laceration or rupture with hemoperitoneum Cardiomegaly, mild pericardial effusion Dr. Cheng telephoned the findings to physician executive sales assistant Britni in the emergency room on 06/15/2024 at [address] 06/16/24 05:47 IMPRESSION: 1. Normal brain.
--- NOTE | 2024-06-16 11:38 | WPDNEURCNPN ---
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 There is a long history of lower back pain for 10 years. Patient has been to neurosurgeons and also to pain specialist. Where is opiate induced myoclonic jerking could be a possibility I agree that we should obtain MRI of the brain and EEG. I doubt this to be the seizures since the patient is fully awake and alert and the jerks are not confined to any particular limb or part of the body. (2) Chronic back pain: Qualifiers: Back pain location: back pain in unspecified location Back pain laterality: unspecified Qualified Code(s): M54.9 - Dorsalgia, unspecified; G89.29 - Other chronic pain Code(s): M54.9 - Dorsalgia, unspecified; G89.29 - Other chronic pain Status: Acute Assessment and Plan: Patient has been evaluated by neurosurgeons. There is evidence of a spondylolisthesis and degenerative changes described an MRI of the lumbosacral spine done in the past. Patient also has been to see a pain specialist. (3) Atrial fibrillation and flutter: Code(s): I48.91 - Unspecified atrial fibrillation; I48.92 - Unspecified atrial flutter Status: Acute Assessment and Plan: Patient has been under care of a retail field representative and is on Eliquis for atrial fibrillation. Apparently this has been very difficult to control (4) Congestive heart failure, unspecified: Qualifiers: Heart failure type: combined systolic and diastolic Heart failure chronicity: chronic Qualified Code(s): I50.42 - Chronic combined systolic (congestive) and diastolic (congestive) heart failure Code(s): I50.9 - Heart failure, unspecified Status: Acute (5) Hemorrhage of spleen: Code(s): D73.5 - Infarction of spleen Status: Acute Assessment and Plan: This could be new finding since it has not been described on CT scan the abdomen and pelvis done on 06/12/2023 at [facility] and also a MRI of abdomen on 03/10/2024 and hence meds further evaluation. According to the reports there is relative high density fluid collection subjacent to the spleen with the ill-defined margins suggestive of a splenic laceration ulnar rupture with hemoperitoneum. I would suggest to follow up with the surgeons in this regard. Plan Neurology will follow up with the results of MRI of the brain and EEG. If the patient has any impairment of consciousness or any seizure-like activity with certain we would like to know. Consult date: 06/16/24 HPI: Miguelito Lopes is a 58 year old male with history of jerking of both lower limbs and right upper limb and head for last 3-4 months. He also has developed pain in the left side of the abdomen and has been found to have possible splenic rupture for which he is being evaluated by surgery. Reviewing his previous notes it appears that he has history of atrial fibrillation and congestive cardiac failure and he has been on Eliquis under care of retail field representative Dr. Cata Barnhart. The patient hina Asencio has seen neurosurgeon Dr. Villatoro for pain in the lower back. He has been taking [place] 10 mg up to 5 tablets a day. He also has been under pain management and has had injections. He has a long history of pain in the lower back going down the left lower limb. I noted that he had a CT scan of the abdomen and pelvis done on 06/11/2024 at [place] which shows gallstones and reflux of contrast hepatic veins history of right heart insufficiency. Review of Systems Review of Systems: All systems reviewed & are unremarkable except as noted in HPI and below PMFSH Past Medical History Medical History (Updated 06/16/24 @ 11:47 by Sebas rOtega MD) Myoclonic jerking Butterfly rash Acute otitis media Joint pain Spasm of thoracic back muscle Sinusitis Diarrhea BMI 26.0-26.9,adult 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 Left lower quadrant abdominal pain BMI 25.0-25.9,adult BMI 24.0-24.9, adult Umbilical hernia Non-healing skin lesion Eye injury BMI 21.0-21.9, adult Screen for colon cancer Hematuria BMI 22.0-22.9, adult Patellofemoral syndrome, left Cardiomegaly Steatohepatitis Bladder wall thickening Prostate enlargement COPD (chronic obstructive pulmonary disease) DJD (degenerative joint disease) of cervical spine Rotator cuff tear Left inguinal hernia Abdominal hernia Anxiety disorder, unspecified Atrial fibrillation and flutter Congestive heart failure, unspecified Fatty liver Lumbar spondylosis Pulmonary emphysema Surgical History Surgical History H/O cardiac radiofrequency ablation H/O colonoscopy History of bladder surgery ablation History of vasectomy History of knee surgery History of bunionectomy History of inguinal hernia repair History of umbilical hernia repair Family History Family History Father No problems noted. Mother Thyroid activity decreased Fatty liver Stage 2 liver disease Sibling , covid-19 COVID-19 Other Diabetes mellitus Family history of coronary artery disease Family history of malignant neoplasm Hypertension Social History Social History Smoking status: Never smoker Second hand tobacco smoke exposure: Yes Alcohol intake: never Substance use: current Substance use type: marijuana Other substance usage details: OCCASIONAL Do You Feel Safe in your Home?: Yes Lack of Transportation: No Lack of Food: Never True Current Housing: I Have Housing Concerned About Future Housing: No Difficulty Paying Gas/Electric Bills: YES Difficulty Paying for Meds: No Currently Unemployed: No Education: High School Diploma/GED Difficulty w/ Childcare or Family Care: No Living arrangements: alone Additional living arrangements comments: is . 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 Gender identity (if verbalized by the patient): Male Spiritual care concerns: No Meds Home Medications and Allergies Home Medications ?Medication ?Instructions ?Recorded ?Confirmed ?Type metoprolol succinate 50 mg 50 mg PO DAILY 01/26/22 06/16/24 History tablet,extended release 24 hr tamsulosin 0.4 mg capsule (Flomax) 0.4 mg PO DAILY 05/04/22 06/16/24 History albuterol sulfate 90 mcg/actuation 2 inh inhalation Q6H PRN shortness 12/12/22 06/16/24 Rx aerosol inhaler of breath or wheezing #8.5 grams magnesium hydroxide 400 mg (170 mg 400 mg PO DAILY 02/06/23 06/16/24 History magnesium) chewable tablet apixaban 5 mg tablet (Eliquis) 5 mg PO BID #180 tabs 08/03/23 06/16/24 Rx naloxone 4 mg/actuation nasal 4 mg intranasal Q2-3M PRN opioid 10/16/23 06/16/24 Rx spray (Narcan) overdose #2 ea fluticasone fur. 100 mcg-umeclid 1 inh inhalation DAILY 04/15/24 06/16/24 History 62.5 mcg-vilant 25 mcg inhalat.powder (Trelegy Ellipta) oxycodone 10 mg tablet 10 mg PO Q6H pain #120 tabs 05/23/24 06/16/24 Rx alprazolam 1 mg tablet (Xanax) 1 mg PO QID PRN anxiety #120 tabs 06/05/24 06/16/24 Rx Allergies Allergy/AdvReac Type Severity Reaction Status Date / Time ciprofloxacin Allergy Intermediate Rash Verified 06/15/24 17:41 Vital Signs Vital Signs - 24 hr 06/15/24 18:08 06/15/24 20:56 06/15/24 20:58 Temperature 98.6 F Pulse Rate 105 H 131 H 102 H Respiratory Rate 19 21 H 16 Blood Pressure 140/96 H 154/95 H Pulse Oximetry 99 99 100 Oxygen Delivery Room Air 06/15/24 21:00 06/15/24 21:01 06/15/24 21:15 Temperature Pulse Rate 124 H 113 H 123 H Respiratory Rate 17 13 19 Blood Pressure 140/106 H Pulse Oximetry 97 99 Oxygen Delivery 06/15/24 21:54 06/15/24 22:03 06/15/24 22:04 Temperature Pulse Rate 102 H 85 81 Respiratory Rate 15 15 13 Blood Pressure 123/99 H 123/99 H Pulse Oximetry 100 99 99 Oxygen Delivery 06/15/24 22:05 06/15/24 22:15 06/15/24 22:16 Temperature Pulse Rate 83 76 93 Respiratory Rate 16 16 20 Blood Pressure 126/96 H Pulse Oximetry 99 99 98 Oxygen Delivery 06/15/24 22:30 06/15/24 22:45 06/15/24 22:46 Temperature Pulse Rate 97 87 94 Respiratory Rate 18 21 H 14 Blood Pressure 136/102 H Pulse Oximetry Oxygen Delivery 06/15/24 23:00 06/15/24 23:01 06/15/24 23:15 Temperature Pulse Rate 87 96 90 Respiratory Rate 16 13 15 Blood Pressure 126/99 H Pulse Oximetry Oxygen Delivery 06/15/24 23:31 06/15/24 23:46 06/16/24 00:00 Temperature Pulse Rate 92 91 104 H Respiratory Rate 13 13 18 Blood Pressure 127/101 H 121/89 Pulse Oximetry Oxygen Delivery 06/16/24 00:20 06/16/24 00:33 06/16/24 00:47 Temperature Pulse Rate 119 H 112 H 112 H Respiratory Rate 24 H 23 H 23 H Blood Pressure Pulse Oximetry Oxygen Delivery 06/16/24 01:07 06/16/24 01:15 06/16/24 01:30 Temperature Pulse Rate 93 100 111 H Respiratory Rate 20 20 24 H Blood Pressure Pulse Oximetry 100 98 99 Oxygen Delivery 06/16/24 01:45 06/16/24 02:01 06/16/24 03:02 Temperature Pulse Rate 96 90 97 Respiratory Rate 20 22 H 16 Blood Pressure 140/100 H Pulse Oximetry 99 98 98 Oxygen Delivery 06/16/24 03:03 06/16/24 03:15 06/16/24 03:30 Temperature Pulse Rate 97 96 98 Respiratory Rate 19 14 14 Blood Pressure Pulse Oximetry 99 97 98 Oxygen Delivery 06/16/24 03:31 06/16/24 03:45 06/16/24 04:00 Temperature Pulse Rate 94 81 92 Respiratory Rate 16 13 21 H Blood Pressure 125/101 H Pulse Oximetry 98 97 97 Oxygen Delivery 06/16/24 04:01 06/16/24 04:15 06/16/24 04:30 Temperature Pulse Rate 89 91 84 Respiratory Rate 22 H 12 16 Blood Pressure 125/89 Pulse Oximetry 98 99 98 Oxygen Delivery 06/16/24 04:31 06/16/24 04:45 06/16/24 05:26 Temperature Pulse Rate 84 94 92 Respiratory Rate 15 15 20 Blood Pressure 131/102 H Pulse Oximetry 98 99 99 Oxygen Delivery 06/16/24 05:31 06/16/24 05:48 06/16/24 06:01 Temperature Pulse Rate 97 91 86 Respiratory Rate 22 H 16 18 Blood Pressure Pulse Oximetry 100 98 97 Oxygen Delivery 06/16/24 06:15 06/16/24 06:30 06/16/24 06:45 Temperature Pulse Rate 88 88 95 Respiratory Rate 16 14 13 Blood Pressure Pulse Oximetry 99 98 98 Oxygen Delivery 06/16/24 07:00 06/16/24 07:05 06/16/24 07:06 Temperature Pulse Rate 89 110 H 88 Respiratory Rate 17 17 15 Blood Pressure 118/86 Pulse Oximetry 98 98 100 Oxygen Delivery 06/16/24 07:15 06/16/24 07:30 06/16/24 07:31 Temperature Pulse Rate 103 H 104 H 101 H Respiratory Rate 22 H 17 21 H Blood Pressure 118/93 H Pulse Oximetry 98 99 100 Oxygen Delivery 06/16/24 07:45 06/16/24 08:00 06/16/24 08:01 Temperature Pulse Rate 97 106 H 96 Respiratory Rate 15 22 H 19 Blood Pressure 135/104 H Pulse Oximetry 99 Oxygen Delivery 06/16/24 08:35 Temperature Pulse Rate 107 H Respiratory Rate 20 Blood Pressure 135/104 H Pulse Oximetry 100 Oxygen Delivery Exam Const: General: cooperative, well developed and alert Orientation/consciousness: patient oriented x3 HENMT: Head: atraumatic Mouth: Yes oropharynx normal Eyes: Alignment and Position: position normal Pupils: Equal, round and reactive pupils present EOM: EOMs intact bilaterally Neck: Neck: supple Resp: Effort & Inspection: normal respiratory effort Neuro: General: patient oriented x3 Cranial nerves: Yes CN's II-XII intact bilaterally, Yes facial sensation intact/muscles of mastication intact, Yes Equal, round and reactive pupils present, Yes facial symmetry and Yes Midline tongue present Cognition (Neuro): normal cognition Speech: normal speech Motor exam (neuro): 5/5 motor strength present throughout Sensory Exam: normal sensation Coordination: [id number] test normal and Normal rapid alternating movements of the distal upper extremity present (Neuro) Other: Rare jerking of the limbs and leg were noted. No jerking of the jaw head or neck noted at this time however the nursing staff have noted that sometimes may have occasional jerk in random fashion. Results Labs 06/16/24 06:21 06/16/24 06:23 Labs: Short CBC 06/15/24 06/16/24 Range/Units 21:04 06:21 WBC 8.6 7.4 (4.5-10.0) K/mm3 Hgb 15.8 14.7 (14.0-18.0) g/dL Hct 46.0 43.2 (42.0-52.0) % Plt Count 205 197 (150-375) k/mm3 BMP 06/15/24 06/16/24 21:05 06:23 Sodium 141 139 Potassium 3.5 4.2 Chloride 108 H 105 Carbon Dioxide 23 26 BUN 26 H D 21 H Creatinine 1.29 1.19 Glucose 105 109 Calcium 9.3 9.1 Cardiac Enzymes 06/15/24 06/15/24 06/16/24 Range/Units 21:05 23:26 06:23 Total Creatine Kinase 277 H (55-170) U/L Troponin I < 0.012 < 0.012 < 0.012 (0.000-0.034) ng/mL Liver Function 06/15/24 Range/Units 21:05 Total Bilirubin 2.1 H (0.2-1.3) mg/dL AST 40 (17-59) U/L ALT 42 (6-50) U/L Alkaline Phosphatase 67 (38-126) U/L Albumin 4.5 (3.5-5.1) g/dL
--- NOTE | 2024-06-16 12:29 | WPDNEUROLOGY ---
Neurology EEG Report General Information Date of Study: 06/16/24 TEST EEG DIAGNOSIS Involuntary movements CONDITION OF RECORDING awake, drowsy and asleep. EEG NUMBER 25-30 CLINICAL HISTORY Patient reports he has been having involuntary movements all of his head and arm. EEG DESCRIPTION Basic resting occipital frequency consists of well-organized low to medium voltage 8 to 10 hertz per 2nd alpha admixed with low-voltage 15 to 18 hertz per 2nd beta. Good gabriel posterior gradient is noted. Alpha activity symmetrically block with eyes opening. Low-voltage beta activity seen with waxing and waning posterior alpha rhythm during drowsiness. Beta activity seen admixed with alpha and theta activity during sleep evolving into bilateral symmetrical sleep spindles and also multiple eye movement artifacts. Hyperventilation not done. photic stimulation not done. Non paroxysmal. Nonfocal. Nonlateralizing. IMPRESSION Normal record. Clinical correlation recommended. There is no evidence of cortical correlate with these movements.
[2024-06-16 13:20] LABS: Hematocrit 40.8 % (42.0-52.0); Hemoglobin 14.1 g/dL (14.0-18.0)
[2024-06-16 19:04] LABS: Hematocrit 42.1 % (42.0-52.0); Hemoglobin 14.5 g/dL (14.0-18.0)
[2024-06-16] MEDS: ALPRAZolam (*CRX) 0.5 MG TABLET 1 MG PO (21:20)
[2024-06-17] VITALS (15 sets, daily range): BP systolic 80–123; BP diastolic 60–97; PULSE 60–150; RESP 16–20; TEMP 35.9–36.9; O2SAT 98–100
[2024-06-17] MEDS: SODIUM CHLORIDE 0.9% IV 1,000 ML 75 ML IV CONT ×2 (01:26→15:17)
[2024-06-17 05:50] LABS: Basophils Absolute Auto 0.1 K/mm3 (0.0-0.1); Basophils Percent Auto 0.7 % (0.2-1.2); Eosinophils Percent Auto 0.4 % (0-4.4); Hematocrit 44.1 % (42.0-52.0); Hemoglobin 15.2 g/dL (14.0-18.0); Immature Granulocyte Absolute 0.02 K/mm3 (0.00-0.031); Immature Granulocyte Percent A 0.3 % (0-0.5); Lymphocytes Absolute Auto 2.79 K/mm3 (0.9-3.2); Mean Corpuscular HGB Conc 34.5 g/dl (32-36); Mean Corpuscular Hemoglobin 32.4 pg (26-34); Mean Platelet Volume 9.1 fl (7.4-10.4); Monocytes Absolute Auto 0.4 K/mm3 (0.1-0.6); Monocytes Percent Auto 5.3 % (2.6-8.5); Neutrophils Absolute Auto 3.9 K/mm3 (1.3-6.7); Neutrophils Percent Auto 54.3 % (45.5-73.1); Platelet Count Result 178 k/mm3 (150-375); Red Blood Count 4.69 M/mm3 (4.6-6.20); Red Cell Distribution Width 13.2 % (11.5-14.5); White Blood Count 7.2 K/mm3 (4.5-10.0)
[2024-06-17] MEDS: ALPRAZolam (*CRX) 0.5 MG TABLET 1 MG PO ×3 (05:52→21:55)
--- NOTE | 2024-06-17 05:54 | ECG_ITS ---
Test Date: 2024-06-17 06:09:54 Measurements Intervals [place] Rate: 131 P: 0 ND: 0 QRS: 242 QRSD: 161 T: 48 QT: 324 QTc: 480 Interpretive Statements ATRIAL FIBRILLATION WITH RAPID VENTRICULAR RESPONSE RIGHT AXIS DEVIATION [QRS AXIS > 100] RIGHT BUNDLE BRANCH BLOCK [120+ ms QRS DURATION, UPRIGHT V1, 40+ ms S IN I/aVL/V4/V5/V6] MARKED ST DEPRESSION, CONSIDER SUBENDOCARDIAL INJURY [0.2+ mV ST DEPRESSION] Compared to ECG 06/15/2024 23:27:37 RVR NOW PRESENT Electronically Signed On 06-17-2024 16:12:21 CDT by Ruy Leon M.D.
[2024-06-17 06:03] LABS: Alanine Aminotransferase 32 U/L (6-50); Albumin Level 3.6 g/dL (3.5-5.1); Alkaline Phosphatase 57 U/L (38-126); Anion Gap 6 mmol/L (4-12); Aspartate Amino Transferase 25 U/L (17-59); Bilirubin,Total 2.2 mg/dL (0.2-1.3); Blood Urea Nitrogen 17 mg/dL (9-20); Calcium 8.6 mg/dL (8.4-10.2); Carbon Dioxide 24 mmol/L (22-30); Chloride 110 mmol/L (98-107); Estimated Glomerular Filt Rate > 60; Glucose 100 mg/dL (65-110); Magnesium 2.1 mg/dL (1.6-2.3); Potassium 3.6 mmol/L (3.4-5.0); Sodium 140 mmol/L (137-145)
--- NOTE | 2024-06-17 06:21 | PM.EVENT ---
Event Note Event Note Event Note: Nursing staff called patient was noted to be in AFib RVR. Patient is on Eliquis and metoprolol at home. Eliquis on hold due to splenic laceration. Hemoglobin is stable. Patient's blood pressures have been borderline low last night. The patient's home med rec has not been addressed. Will resume the patient's home metoprolol. Patient also reports anxiety. EKG reviewed and demonstrated AFib RVR with some ST depressions. Likely rate dependent did ST depressions. Will check troponin.
[2024-06-17] MEDS: METOPROLOL SUCCINATE EXT REL 50 MG TABCR PO (06:23)
[2024-06-17 06:57] LABS: Troponin I < 0.012 ng/mL (0.000-0.034)
[2024-06-17] MEDS: TAMSULOSIN HCL 0.4 MG CAPSULE PO (08:20)
--- NOTE | 2024-06-17 11:26 | PM.IMPN ---
Progress Note: A&P Assessment and Plan (1) Splenic laceration: Code(s): S36.039A - Unspecified laceration of spleen, initial encounter Status: Acute Plan 58-year-old male past medical history of congestive heart failure atrial fibrillation on Eliquis who presented to the ER on account of worsening abdominal pain and jerking of the head. Patient noted that he has been having intermittent jerking of his head the past 4 weeks, he noted no pattern or triggers. Also noted abd pain that has been going on the past 3 weeks but got worse the past few days. Myoclonic seizures CT head, EEG: Unremarkable Started on Keppra Neurology consulted EEG showed normal record. Clinical correlation recommended. There is no evidence of cortical correlate with these movements. Brain MRI showed scattered T2 and FLAIR hyperintense signal areas in the deep white matter and subcortical areas which may indicate white matter disease like multiple sclerosis. Clinical correlation and further evaluation advised. Otherwise, No definite intracranial abnormality seen. MS? Based on the MRI pending, radiologist suspect patient has MS For the management and treatment per neurologist Afib Continue rate control Continue to hold Eliquis due to splenic hematoma monitor Splenic laceration with hematoma CT:Relative high density fluid collection subjacent to the spleen, with somewhat ill-defined inferior splenic margin, suggesting splenic laceration or rupture with hemoperitoneum NPO, IVF GEn surgery consulted from ER Hold Eliquis Follow-up CBC and follow-up hemoglobin and q.6 hours, hemoglobin stable COPD not in exacerbation Continue home medication Trelegy Ellipta 1 puff daily PRN duonebs monitor HTN titrate home meds with clinical course DVt prophylaxis on SCDs, no anticoagulation due to splenic hematoma Full code Surrogate decision maker, Father, Stevie Lopes Subjective Date/time seen: 06/17/24 11:26 Interval history: Patient still has left lower quadrant pain, has some shortness breath, denies vision change, headache, focal weakness Patient is afebrile, blood pressure stable, patient is a tachycardia tachypnea, pulse ox 100% on room air. follow-up hemoglobin q.6 hours: Hemoglobin stable Patient is a hemodynamically stable Exam Narrative: GENERAL: Pleasant, in no acute distress. Well-nourished. - EYES: EOMI. Anicteric. - HENT: Moist mucous membranes. - LUNGS: Clear to auscultation bilaterally, no wheezing, rhonchi, or rales. - CARDIOVASCULAR: Irregularly irregular rhythm. No murmur. No JVD. - ABDOMEN: Soft, left upper quadrant tender and non-distended. No palpable masses. - EXTREMITIES: No edema. Peripheral pulses 2+. Non-tender. - NEUROLOGIC: No focal neurological deficits. CN II-XII grossly intact. - PSYCHIATRIC: Awake, Alert and oriented x 3. Appropriate mood and affect. - SKIN: No rashes or lesions. Warm. - LYMPH: No cervical lymphadenopathy. Objective Data Vital Signs Vital Signs: Vital Signs - 24 hr 06/16/24 12:00 06/16/24 16:00 06/16/24 16:18 Temperature 98.4 F Pulse Rate 85 82 72 Respiratory Rate 16 Blood Pressure 97/78 L Pulse Oximetry 99 06/16/24 20:00 06/16/24 22:49 06/17/24 00:00 Temperature 97.4 F L Pulse Rate 72 77 75 Respiratory Rate 18 Blood Pressure 100/72 Pulse Oximetry 96 06/17/24 04:00 06/17/24 06:00 06/17/24 06:19 Temperature 97.3 F L Pulse Rate 65 87 150 H Respiratory Rate 20 Blood Pressure 120/87 Pulse Oximetry 99 06/17/24 06:23 06/17/24 08:00 06/17/24 08:05 Temperature 97.3 F L Pulse Rate 137 H 92 95 Respiratory Rate 16 Blood Pressure 123/97 H Pulse Oximetry 100 Intake/Output Intake/Output: Intake & Output 06/14/24 06/15/24 06/16/24 06/17/24 23:59 23:59 23:59 23:59 Intake Total 2780 620 Balance 2780 620 Meds/Results Medications: Active Medications Generic Name Dose Route Start Last Admin Trade Name Freq PRN Reason Stop Dose Admin Alprazolam 1 mg 06/16/24 20:57 06/17/24 05:52 Alprazolam (*Crx) 0.5 Mg Tablet PO 1 mg QID PRN Administration anxiety Levetiracetam 1,000 mg in 100 mls @ 400 mls/hr 06/16/24 09:00 06/16/24 20:44 Keppra Iv IVPB Infused Q12HR FRANCISCO Infusion Sodium Chloride 1,000 mls @ 75 mls/hr 06/16/24 02:35 06/17/24 01:26 Normal Saline Iv IV CONT 75 mls/hr .[id number] FRANCISCO Administration Metoprolol Succinate 50 mg 06/17/24 06:15 06/17/24 06:23 Metoprolol Succinate Ext Rel 50 Mg Tabcr PO 50 mg DAILY FRANCISCO Administration Tamsulosin HCl 0.4 mg 06/17/24 09:00 06/17/24 08:20 Tamsulosin Hcl 0.4 Mg Capsule PO 0.4 mg DAILY FRANCISCO Administration Radiology Results: ITS Impressions Chest X-Ray 06/15/24 21:49 IMPRESSION: Globular enlarged cardiac silhouette which may be due to cardiomegaly cervical pericardial effusion is not excluded Pulmonary vascular prominence and redistribution suggesting pulmonary venous hypertension, mild congestive heart failure Chest/Abdomen/Pelvis CTA 06/15/24 21:53 IMPRESSION: Relative high density fluid collection subjacent to the spleen, with somewhat ill-defined inferior splenic margin, suggesting splenic laceration or rupture with hemoperitoneum Cardiomegaly, mild pericardial effusion Dr. Cheng telephoned the findings to physician product development assistant Britni in the emergency room on 06/15/2024 at [address] 06/16/24 05:47 IMPRESSION: 1. Normal brain. Brain MRI 06/16/24 15:08 IMPRESSION: 1. Scattered T2 and FLAIR hyperintense signal areas in the deep white matter and subcortical areas which may indicate white matter disease like multiple sclerosis. Clinical correlation and further evaluation advised. Otherwise, No definite intracranial abnormality seen. Labs Labs: Laboratory Results - last 24 hr 06/16/24 06/16/24 06/17/24 13:06 18:56 05:37 WBC 7.2 RBC 4.69 Hgb 14.1 14.5 15.2 Hct 40.8 L 42.1 44.1 MCV 94.0 MCH 32.4 MCHC 34.5 RDW 13.2 Plt Count 178 MPV 9.1 Immature Gran % (Auto) 0.3 Neut % (Auto) 54.3 Lymph % (Auto) 39.0 [place] % (Auto) 5.3 Eos % (Auto) 0.4 Baso % (Auto) 0.7 Lymph # (Auto) 2.79 [place] # (Auto) 0.4 Eos # (Auto) 0.0 Baso # (Auto) 0.1 Abs Immat Gran (auto) 0.02 Absolute Neuts (auto) 3.9 Absolute Nucleated RBC 0.000 Nucleated RBC % 0.0 Sodium 140 Potassium 3.6 Chloride 110 H Carbon Dioxide 24 Anion Gap 6 BUN 17 Creatinine 1.11 Estim Creat Clear Calc Not Reportable Estimated GFR > 60 Glucose 100 Lactic Acid 1.0 Calcium 8.6 Magnesium 2.1 Total Bilirubin 2.2 H AST 25 ALT 32 Alkaline Phosphatase 57 Troponin I Total Protein 6.0 L Albumin 3.6 06/17/24 06:30 WBC RBC Hgb Hct MCV MCH MCHC RDW Plt Count MPV Immature Gran % (Auto) Neut % (Auto) Lymph % (Auto) [place] % (Auto) Eos % (Auto) Baso % (Auto) Lymph # (Auto) [place] # (Auto) Eos # (Auto) Baso # (Auto) Abs Immat Gran (auto) Absolute Neuts (auto) Absolute Nucleated RBC Nucleated RBC % Sodium Potassium Chloride Carbon Dioxide Anion Gap BUN Creatinine Estim Creat Clear Calc Estimated GFR Glucose Lactic Acid Calcium Magnesium Total Bilirubin AST ALT Alkaline Phosphatase Troponin I < 0.012 Total Protein Albumin
--- NOTE | 2024-06-17 13:20 | P.PNGS_ITS ---
Progress Note: A&P Assessment and Plan (1) Splenic laceration: Code(s): S36.039A - Unspecified laceration of spleen, initial encounter Status: Acute Assessment and Plan: * Likely subacute. No signs of active bleeding. No abdominal pain today and his abdominal exam is benign. H/H stable. Okay to resume his anticoagulation. He is surgically stable for discharge when ok with other services. We will order an outpatient CT scan abdomen/pelvis in 1 month and have him f/u with Dr. Walters after the CT to reassess. We will sign off at this time. Call with any surgical questions or concerns. (2) Myoclonic jerking: Code(s): G25.3 - Myoclonus Status: Acute (3) Atrial fibrillation and flutter: Code(s): I48.91 - Unspecified atrial fibrillation; I48.92 - Unspecified atrial flutter Status: Acute Assessment and Plan: * OKay to resume Eliquis (4) Anticoagulated by anticoagulation treatment: Code(s): Z79.01 - ocean transportation intermediary (current) use of anticoagulants Status: Acute Assessment and Plan: * Okay from a surgical standpoint to resume Eliquis Plan I have discussed the patient's case and plan of care with Dr. Walters. Subjective Subjective Date/Time Seen: 06/17/24 13:20 Patient reports: no new complaints and feels better Interval history: Patient denies any abdominal pain today. Reports his tenderness is actually better. Tolerating a diet and no other complaints at this time. Exam Const: General: comfortable and no acute distress GI: Inspection: non-distended GI Palp: Yes Soft to palpation, Yes Tenderness to palpation present (GI) ( Mild left upper quadrant tenderness, improved), No Guarding due to palpation present (GI) and No Rebound tenderness present Auscultation: normal bowel sounds Objective Data Vital Signs Vital Signs: Vital Signs - 24 hr 06/16/24 16:00 06/16/24 16:18 06/16/24 20:00 Temperature 98.4 F Pulse Rate 82 72 72 Respiratory Rate 16 Blood Pressure 97/78 L Pulse Oximetry 99 06/16/24 22:49 06/17/24 00:00 06/17/24 04:00 Temperature 97.4 F L Pulse Rate 77 75 65 Respiratory Rate 18 Blood Pressure 100/72 Pulse Oximetry 96 06/17/24 06:00 06/17/24 06:19 06/17/24 06:23 Temperature 97.3 F L Pulse Rate 87 150 H 137 H Respiratory Rate 20 Blood Pressure 120/87 Pulse Oximetry 99 06/17/24 08:00 06/17/24 08:05 06/17/24 12:00 Temperature 97.3 F L 98.4 F Pulse Rate 92 95 78 Respiratory Rate 16 16 Blood Pressure 123/97 H 92/69 L Pulse Oximetry 100 99 Intake/Output Intake/Output: Intake & Output 06/14/24 06/15/24 06/16/24 06/17/24 23:59 23:59 23:59 23:59 Intake Total 2780 620 Balance 2780 620 Meds/Results Medications: Active Medications Generic Name Dose Route Start Last Admin Trade Name Freq PRN Reason Stop Dose Admin Alprazolam 1 mg 06/16/24 20:57 06/17/24 05:52 Alprazolam (*Crx) 0.5 Mg Tablet PO 1 mg QID PRN Administration anxiety Levetiracetam 1,000 mg in 100 mls @ 400 mls/hr 06/16/24 09:00 06/16/24 20:44 Keppra Iv IVPB Infused Q12HR FRANCISCO Infusion Sodium Chloride 1,000 mls @ 75 mls/hr 06/16/24 02:35 06/17/24 01:26 Normal Saline Iv IV CONT 75 mls/hr .[id number] FRANCISCO Administration Metoprolol Succinate 50 mg 06/17/24 06:15 06/17/24 06:23 Metoprolol Succinate Ext Rel 50 Mg Tabcr PO 50 mg DAILY FRANCISCO Administration Tamsulosin HCl 0.4 mg 06/17/24 09:00 06/17/24 08:20 Tamsulosin Hcl 0.4 Mg Capsule PO 0.4 mg DAILY FRANCISCO Administration Radiology Results: ITS Impressions Chest X-Ray 06/15/24 21:49 IMPRESSION: Globular enlarged cardiac silhouette which may be due to cardiome rebecca cervical pericardial effusion is not excluded Pulmonary vascular prominence and redistribution suggesting pulmonary venous hypertension, mild congestive heart failure Chest/Abdomen/Pelvis CTA 06/15/24 21:53 IMPRESSION: Relative high density fluid collection subjacent to the spleen, with somewhat ill-defined inferior splenic margin, suggesting splenic laceration or rupture with hemoperitoneum Cardiomegaly, mild pericardial effusion Dr. Cheng telephoned the findings to physician medical assistant cardiology Britni in the emergency room on 06/15/2024 at [address] 06/16/24 05:47 IMPRESSION: 1. Normal brain. Brain MRI 06/16/24 15:08 IMPRESSION: 1. Scattered T2 and FLAIR hyperintense signal areas in the deep white matter and subcortical areas which may indicate white matter disease like multiple sclerosis. Clinical correlation and further evaluation advised. Otherwise, No definite intracranial abnormality seen. Labs Labs: Laboratory Results - last 24 hr 06/16/24 06/16/24 06/17/24 13:06 18:56 05:37 WBC 7.2 RBC 4.69 Hgb 14.1 14.5 15.2 Hct 40.8 L 42.1 44.1 MCV 94.0 MCH 32.4 MCHC 34.5 RDW 13.2 Plt Count 178 MPV 9.1 Immature Gran % (Auto) 0.3 Neut % (Auto) 54.3 Lymph % (Auto) 39.0 [place] % (Auto) 5.3 Eos % (Auto) 0.4 Baso % (Auto) 0.7 Lymph # (Auto) 2.79 [place] # (Auto) 0.4 Eos # (Auto) 0.0 Baso # (Auto) 0.1 Abs Immat Gran (auto) 0.02 Absolute Neuts (auto) 3.9 Absolute Nucleated RBC 0.000 Nucleated RBC % 0.0 Sodium 140 Potassium 3.6 Chloride 110 H Carbon Dioxide 24 Anion Gap 6 BUN 17 Creatinine 1.11 Estim Creat Clear Calc Not Reportable Estimated GFR > 60 Glucose 100 Lactic Acid 1.0 Calcium 8.6 Magnesium 2.1 Total Bilirubin 2.2 H AST 25 ALT 32 Alkaline Phosphatase 57 Troponin I Total Protein 6.0 L Albumin 3.6 06/17/24 06:30 WBC RBC Hgb Hct MCV MCH MCHC RDW Plt Count MPV Immature Gran % (Auto) Neut % (Auto) Lymph % (Auto) [place] % (Auto) Eos % (Auto) Baso % (Auto) Lymph # (Auto) [place] # (Auto) Eos # (Auto) Baso # (Auto) Abs Immat Gran (auto) Absolute Neuts (auto) Absolute Nucleated RBC Nucleated RBC % Sodium Potassium Chloride Carbon Dioxide Anion Gap BUN Creatinine Estim Creat Clear Calc Estimated GFR Glucose Lactic Acid Calcium Magnesium Total Bilirubin AST ALT Alkaline Phosphatase Troponin I < 0.012 Total Protein Albumin
[2024-06-17] MEDS: levETIRAcetam 500 MG TABLET 1000 MG PO ×2 (13:42→20:48)
--- NOTE | 2024-06-17 18:54 | PC.NURSE ---
On 06/17/24, the student, Lisa Kelly, provided care and completed [facility] documentation on this patient. I have reviewed the student's documentation and agree with the findings.
[2024-06-18] VITALS (9 sets, daily range): BP systolic 107–116; BP diastolic 62–87; PULSE 67–106; RESP 18; TEMP 36.1–36.9; O2SAT 96–99
[2024-06-18] MEDS: SODIUM CHLORIDE 0.9% IV 1,000 ML 75 ML IV CONT (04:37)
[2024-06-18 07:07] LABS: Basophils Absolute Auto 0.1 K/mm3 (0.0-0.1); Basophils Percent Auto 0.8 % (0.2-1.2); Eosinophils Percent Auto 0.4 % (0-4.4); Hematocrit 41.9 % (42.0-52.0); Hemoglobin 14.3 g/dL (14.0-18.0); Immature Granulocyte Absolute 0.01 K/mm3 (0.00-0.031); Immature Granulocyte Percent A 0.1 % (0-0.5); Lymphocytes Absolute Auto 2.32 K/mm3 (0.9-3.2); Mean Corpuscular HGB Conc 34.1 g/dl (32-36); Mean Corpuscular Hemoglobin 32.2 pg (26-34); Mean Corpuscular Volume 94.4 fl (80-100); Monocytes Absolute Auto 0.4 K/mm3 (0.1-0.6); Monocytes Percent Auto 4.8 % (2.6-8.5); Neutrophils Absolute Auto 4.7 K/mm3 (1.3-6.7); Neutrophils Percent Auto 62.9 % (45.5-73.1); Platelet Count Result 149 k/mm3 (150-375); Red Blood Count 4.44 M/mm3 (4.6-6.20); Red Cell Distribution Width 13.3 % (11.5-14.5); White Blood Count 7.5 K/mm3 (4.5-10.0)
[2024-06-18 07:23] LABS: Anion Gap 6 mmol/L (4-12); Blood Urea Nitrogen 18 mg/dL (9-20); Calcium 8.6 mg/dL (8.4-10.2); Carbon Dioxide 25 mmol/L (22-30); Chloride 109 mmol/L (98-107); Estimated Glomerular Filt Rate > 60; Glucose 99 mg/dL (65-110); Potassium 3.8 mmol/L (3.4-5.0); Sodium 140 mmol/L (137-145)
[2024-06-18] MEDS: FLUTICASONE/UMECLIDIN/VILANTER 100-62.5-25 MCG ELLIPTA 1 PUFF INHALATION (08:45)
[2024-06-18] MEDS: levETIRAcetam 500 MG TABLET 1000 MG PO ×2 (08:48→20:33)
[2024-06-18] MEDS: METOPROLOL SUCCINATE EXT REL 50 MG TABCR PO (08:48)
[2024-06-18] MEDS: TAMSULOSIN HCL 0.4 MG CAPSULE PO (08:49)
[2024-06-18] MEDS: ALPRAZolam (*CRX) 0.5 MG TABLET 1 MG PO ×2 (12:08→22:45)
--- NOTE | 2024-06-18 13:08 | P.PNIM_ITS ---
Progress Note: A&P Assessment and Plan (1) Splenic laceration: Code(s): S36.039A - Unspecified laceration of spleen, initial encounter Status: Acute Assessment and Plan: * CT:Relative high density fluid collection subjacent to the spleen, with somewhat ill-defined inferior splenic margin, suggesting splenic laceration or rupture with hemoperitoneum. * Per surgery okay to resume anticoagulation. Restart Apixaban 5 mg PO BID. * Patient to have repeat imaging in a month and follow up outpatient with surgery. (2) Atrial fibrillation: Code(s): I48.91 - Unspecified atrial fibrillation Status: Acute Assessment and Plan: * Restart Apixaban 5 mg PO BID. * Monitor telemetry. (3) Myoclonic jerking: Code(s): G25.3 - Myoclonus Status: Acute Assessment and Plan: * CT head, EEG: Unremarkable * Started on Keppra * Neurology consulted * EEG showed normal record. Clinical correlation recommended. There is no evidence of cortical correlate with these movements. * Brain MRI showed scattered T2 and FLAIR hyperintense signal areas in the deep white matter and subcortical areas which may indicate white matter disease like multiple sclerosis. Clinical correlation and further evaluation advised. Otherwise, No definite intracranial abnormality seen. * Dr. Ortega to see patient on 06/19 Plan 58-year-old male past medical history of congestive heart failure atrial fibrillation on Eliquis who presented to the ER on account of worsening abdominal pain and jerking of the head. Patient noted that he has been having intermittent jerking of his head the past 4 weeks, he noted no pattern or triggers. Also noted abd pain that has been going on the past 3 weeks but got worse the past few days. COPD not in exacerbation Continue home medication Trelegy Ellipta 1 puff daily PRN duonebs monitor Subjective Date/time seen: 06/18/24 13:08 Interval history: Patient sitting up in bed. Patient reports occasional tremors for different links of time. Patient denies chest pain, palpitations, headache, dizziness, nausea, or vomiting. Patient reports lower back pain that is a 6 , frequent, and aching patient reports from lying in bed. Review of Systems Review of Systems: All systems reviewed & are unremarkable except as noted in HPI and below Exam Const: General: comfortable and no acute distress Resp: Effort & Inspection: normal respiratory effort Auscultation: clear to auscultation bilaterally Cardio: Rhythm: abnormal rhythm irregularly irregular (afib 89) GI: GI Palp: Yes Soft to palpation Auscultation: normal bowel sounds Neuro: Speech: normal speech Extrem: General: no pedal edema Psych: Mental Status: mental status grossly normal Affect: normal affect Objective Data Vital Signs Vital Signs: Vital Signs - 24 hr 06/17/24 16:00 06/17/24 16:05 06/17/24 16:22 Temperature 96.7 F L Pulse Rate 81 60 Respiratory Rate 16 Blood Pressure 80/60 L Pulse Oximetry 98 Oxygen Delivery 06/17/24 19:27 06/17/24 20:00 06/17/24 22:02 Temperature 97.9 F Pulse Rate 85 81 Respiratory Rate 16 Blood Pressure 108/78 109/85 Pulse Oximetry 99 Oxygen Delivery 06/18/24 00:00 06/18/24 00:00 06/18/24 04:00 Temperature 98 F Pulse Rate 69 86 67 Respiratory Rate 18 Blood Pressure 107/63 Pulse Oximetry 97 Oxygen Delivery 06/18/24 04:00 06/18/24 07:57 06/18/24 08:46 Temperature 98.2 F 97.1 F L Pulse Rate 75 93 Respiratory Rate 18 18 Blood Pressure 116/62 114/87 Pulse Oximetry 98 99 96 Oxygen Delivery Room Air 06/18/24 08:46 06/18/24 08:47 06/18/24 12:05 Temperature 98.3 F Pulse Rate 93 92 Respiratory Rate 18 Blood Pressure 109/84 Pulse Oximetry 97 Oxygen Delivery Room Air Intake/Output Intake/Output: Intake & Output 06/15/24 06/16/24 06/17/24 06/18/24 23:59 23:59 23:59 23:59 Intake Total 2780 2450 1790 Output Total 200 500 Balance 2780 2250 1290 Meds/Results Medications: Active Medications Generic Name Dose Route Start Last Admin Trade Name Freq PRN Reason Stop Dose Admin Albuterol 2 puff 06/17/24 17:44 Albuterol Sulfate (*Sp) Aerosol 1 Puff INHALATION Q6H PRN shortness of breath or wheezing Alprazolam 1 mg 06/16/24 20:57 06/18/24 12:08 Alprazolam (*Crx) 0.5 Mg Tablet PO 1 mg QID PRN Administration anxiety Fluticasone/Umeclidinium/Vilanterol 1 puff 06/18/24 09:00 06/18/24 08:45 Fluticasone/Umeclidin/Vilanter 100-62.5-25 Mcg Ellipta INHALATION 1 puff DAILY FRANCISCO Administration Sodium Chloride 1,000 mls @ 75 mls/hr 06/16/24 02:35 06/18/24 04:37 Normal Saline Iv IV CONT 75 mls/hr .[id number] FRANCISCO Administration Levetiracetam 1,000 mg 06/17/24 13:35 06/18/24 08:48 Levetiracetam 500 Mg Tablet PO 1,000 mg Q12HR FRANCISCO Administration Metoprolol Succinate 50 mg 06/17/24 06:15 06/18/24 08:48 Metoprolol Succinate Ext Rel 50 Mg Tabcr PO 50 mg DAILY FRANCISCO Administration Miscellaneous Information 1 each 06/18/24 00:01 Magnesium Hydroxide Is Nonform; Ok To Change To Magnesium Oxide 400 Mg? XX 07/18/24 00:00 [facility] Miscellaneous Information 1 each 06/18/24 00:01 Narcan [place] Is Nonform; Ok To Hold Until Discharge? XX 07/18/24 00:00 [facility] Non-Formulary Medication 400 mg 06/18/24 09:00 Magnesium Hydroxide PO 07/18/24 08:59 DAILY [facility] Non-Formulary Medication 4 mg 06/17/24 17:44 Naloxone [Narcan] NASAL Q2-3M PRN opioid overdose Oxycodone HCl 10 mg 06/17/24 22:31 Oxycodone Hcl (*Crx) 5 Mg Tab Ir PO Q6H PRN Pain 7-10 Tamsulosin HCl 0.4 mg 06/17/24 09:00 06/18/24 08:49 Tamsulosin Hcl 0.4 Mg Capsule PO 0.4 mg DAILY FRANCISCO Administration Radiology Results: ITS Impressions Chest X-Ray 06/15/24 21:49 IMPRESSION: Globular enlarged cardiac silhouette which may be due to cardiomegaly cervical pericardial effusion is not excluded Pulmonary vascular prominence and redistribution suggesting pulmonary venous hypertension, mild congestive heart failure Chest/Abdomen/Pelvis CTA 06/15/24 21:53 IMPRESSION: Relative high density fluid collection subjacent to the spleen, with somewhat ill-defined inferior splenic margin, suggesting splenic laceration or rupture with hemoperitoneum Cardiomegaly, mild pericardial effusion Dr. Cheng telephoned the findings to physician delinquent tax collector assistant Britni in the emergency room on 06/15/2024 at [address] 06/16/24 05:47 IMPRESSION: 1. Normal brain. Brain MRI 06/16/24 15:08 IMPRESSION: 1. Scattered T2 and FLAIR hyperintense signal areas in the deep white matter and subcortical areas which may indicate white matter disease like multiple sclerosis. Clinical correlation and further evaluation advised. Otherwise, No definite intracranial abnormality seen. Labs Labs: Laboratory Results - last 24 hr 06/18/24 07:01 WBC 7.5 RBC 4.44 L Hgb 14.3 Hct 41.9 L MCV 94.4 MCH 32.2 MCHC 34.1 RDW 13.3 Plt Count 149 L MPV 9.0 Immature Gran % (Auto) 0.1 Neut % (Auto) 62.9 Lymph % (Auto) 31.0 [place] % (Auto) 4.8 Eos % (Auto) 0.4 Baso % (Auto) 0.8 Lymph # (Auto) 2.32 [place] # (Auto) 0.4 Eos # (Auto) 0.0 Baso # (Auto) 0.1 Abs Immat Gran (auto) 0.01 Absolute Neuts (auto) 4.7 Absolute Nucleated RBC 0.000 Nucleated RBC % 0.0 Sodium 140 Potassium 3.8 Chloride 109 H Carbon Dioxide 25 Anion Gap 6 BUN 18 Creatinine 1.05 Estim Creat Clear Calc Not Reportable Estimated GFR > 60 Glucose 99 Calcium 8.6 Quality VTE Prophylaxis VTE prophylaxis: pharmacologic ordered
[2024-06-18] MEDS: APIXABAN 5 MG TABLET PO (17:36)
[2024-06-19] VITALS: BP 100/74; PULSE 75; PULSE 77; RESP 18; TEMP 36.7; O2SAT 98
[2024-06-19 04:00] VITALS: BP 97/73; PULSE 74; PULSE 76; RESP 18; TEMP 36.7; O2SAT 98
[2024-06-19 05:21] LABS: Basophils Absolute Auto 0.1 K/mm3 (0.0-0.1); Basophils Percent Auto 0.8 % (0.2-1.2); Eosinophils Percent Auto 0.4 % (0-4.4); Hematocrit 42.5 % (42.0-52.0); Hemoglobin 14.2 g/dL (14.0-18.0); Immature Granulocyte Absolute 0.02 K/mm3 (0.00-0.031); Immature Granulocyte Percent A 0.2 % (0-0.5); Lymphocytes Absolute Auto 2.09 K/mm3 (0.9-3.2); Lymphocytes Percent Auto 25.3 % (18.3-44.2); Mean Corpuscular HGB Conc 33.4 g/dl (32-36); Mean Corpuscular Hemoglobin 31.9 pg (26-34); Mean Corpuscular Volume 95.5 fl (80-100); Monocytes Absolute Auto 0.5 K/mm3 (0.1-0.6); Monocytes Percent Auto 5.7 % (2.6-8.5); Neutrophils Absolute Auto 5.6 K/mm3 (1.3-6.7); Neutrophils Percent Auto 67.6 % (45.5-73.1); Platelet Count Result 158 k/mm3 (150-375); Red Blood Count 4.45 M/mm3 (4.6-6.20); Red Cell Distribution Width 13.2 % (11.5-14.5); White Blood Count 8.3 K/mm3 (4.5-10.0)
[2024-06-19 05:32] LABS: Alanine Aminotransferase 31 U/L (6-50); Albumin Level 3.5 g/dL (3.5-5.1); Alkaline Phosphatase 49 U/L (38-126); Anion Gap 6 mmol/L (4-12); Aspartate Amino Transferase 21 U/L (17-59); Bilirubin,Total 1.1 mg/dL (0.2-1.3); Blood Urea Nitrogen 18 mg/dL (9-20); Calcium 8.8 mg/dL (8.4-10.2); Carbon Dioxide 29 mmol/L (22-30); Chloride 105 mmol/L (98-107); Estimated Glomerular Filt Rate > 60; Glucose 98 mg/dL (65-110); Potassium 4.2 mmol/L (3.4-5.0); Sodium 140 mmol/L (137-145)
[2024-06-19 08:21] VITALS: PULSE 107
[2024-06-19 08:28] VITALS: PULSE 105
[2024-06-19] MEDS: levETIRAcetam 500 MG TABLET 1000 MG PO (08:28)
[2024-06-19] MEDS: TAMSULOSIN HCL 0.4 MG CAPSULE PO (08:28)
[2024-06-19] MEDS: APIXABAN 5 MG TABLET PO (08:28)
[2024-06-19] MEDS: METOPROLOL SUCCINATE EXT REL 50 MG TABCR PO (08:28)
[2024-06-19 08:34] VITALS: BP 121/90; PULSE 76; RESP 18; TEMP 36.2; O2SAT 100
--- NOTE | 2024-06-19 10:55 | PM.DS ---
DS: Admitting Diagnosis Discharge Date 06/19/2024 Admitting Diagnosis Muscle tremors. DS: Discharge Diagnosis Discharge Diagnosis (1) Splenic laceration: Code(s): S36.039A - Unspecified laceration of spleen, initial encounter Status: Acute (2) Atrial fibrillation: Code(s): I48.91 - Unspecified atrial fibrillation Status: Acute (3) Myoclonic jerking: Code(s): G25.3 - Myoclonus Status: Acute DS: Summary Hospital Course Hospital Course: ER eval notable for OH 105, RR 19, BP 140/96, saturating 99% on room air. Labs notable for hb 15.8, Bili 2., NT-proBNP 85076, UDS positive for opiates, benzos and cannabinoids. CT AP showed fluid collection subjacent to the spleen with somewhat ill-defined splenic margin suggesting splenic laceration with hemoperitoneum. Neurology and Gen surgery were consulted prior to admission Radiology Results: ITS Impressions Chest X-Ray 06/15/24 21:49 IMPRESSION: Globular enlarged cardiac silhouette which may be due to cardiomegaly cervical pericardial effusion is not excluded Pulmonary vascular prominence and redistribution suggesting pulmonary venous hypertension, mild congestive heart failure Chest/Abdomen/Pelvis CTA 06/15/24 21:53 IMPRESSION: Relative high density fluid collection subjacent to the spleen, with somewhat ill-defined inferior splenic margin, suggesting splenic laceration or rupture with hemoperitoneum Cardiomegaly, mild pericardial effusion Dr. Cheng telephoned the findings to physician workforce development assistant Britni in the emergency room on 06/15/2024 at [address] 06/16/24 05:47 IMPRESSION: 1. Normal brain. Brain MRI 06/16/24 15:08 IMPRESSION: 1. Scattered T2 and FLAIR hyperintense signal areas in the deep white matter and subcortical areas which may indicate white matter disease like multiple sclerosis. Clinical correlation and further evaluation advised. Otherwise, No definite intracranial abnormality seen. Surgery okay patient to restart anticoagulants and repeat imaging in a month. Patient to follow up with . Neurology believes that patient was having myoclonus from taking Hydrocodone and should avoid Hydrocodone. Neurology reviewed patients brain MRI and does not believe that patient has multiple sclerosis. Patient to follow up with Neurology as needed. Status at Discharge Functional status at discharge: independent ambulation Overall status at discharge: patient is progressing back to baseline Time Spent with Patient Time attestation: Total time spent providing and/or coordinating discharge services: Time spent: Greater than 30 minutes Exam Const: General: comfortable and no acute distress Resp: Effort & Inspection: normal respiratory effort Auscultation: clear to auscultation bilaterally Cardio: Rhythm: abnormal rhythm irregularly irregular (afib 99) GI: GI Palp: Yes Soft to palpation Auscultation: normal bowel sounds Extrem: General: no pedal edema Psych: Mental Status: mental status grossly normal Affect: normal affect DS: Data Data Completed and Pending Labs on day of discharge: Labs from last 24 hours 06/19/24 05:09 WBC 8.3 RBC 4.45 L Hgb 14.2 Hct 42.5 MCV 95.5 MCH 31.9 MCHC 33.4 RDW 13.2 Plt Count 158 MPV 9.0 Immature Gran % (Auto) 0.2 Neut % (Auto) 67.6 Lymph % (Auto) 25.3 [place] % (Auto) 5.7 Eos % (Auto) 0.4 Baso % (Auto) 0.8 Lymph # (Auto) 2.09 [place] # (Auto) 0.5 Eos # (Auto) 0.0 Baso # (Auto) 0.1 Abs Immat Gran (auto) 0.02 Absolute Neuts (auto) 5.6 Absolute Nucleated RBC 0.000 Nucleated RBC % 0.0 Sodium 140 Potassium 4.2 Chloride 105 Carbon Dioxide 29 Anion Gap 6 BUN 18 Creatinine 1.08 Estim Creat Clear Calc Not Reportable Estimated GFR > 60 Glucose 98 Calcium 8.8 Total Bilirubin 1.1 AST 21 ALT 31 Alkaline Phosphatase 49 Total Protein 6.0 L Albumin 3.5 Discharge Plan Discharge Attending physician on discharge: Peewee Gonzales Consulting providers: Sebas Ortega; Pamela Walters Discharging Clinician: Cathleen Rodriguez Anticipated Discharge Date/Time: 06/19/24 11:30 Patient Disposition: Home, Self-Care Activity: may shower and other - see discharge instructions Diet: heart healthy Discharge Instructions: Avoid any strenuous activity or sports that could cause injury to your abdomen. If you develop worsening abdominal pain or fever, then return to the ER. General Surgery Instructions: CT scan of the abdomen and pelvis is scheduled for July 21 at 9:00 am. Please arrive at 8:45 am at [facility]. You must fast for 4 hours prior to the test. No eating or drinking. Follow-up with Dr. Walters scheduled on July 29 at 1:00 pm in our office in [address] at [facility]. You will discuss the CT results at this appointment. Report any bleeding, bruising, or weakness to provider. Increase protein in your diet or drink an Ensure daily. Thank you for entrusting [facility] with your healthcare! Patient Instructions: Antibiotic Form, Apixaban (By mouth) Patient Language: Macedonian Stand Alone Forms: General Discharge Information Follow-up/Referrals: Pamela Walters MD [Physician] - 4 Weeks Sebas Ortega MD [Physician] - Other (follow up if tremors return or any neurological issues. ) Louis Hewitt MD [Primary Care Provider] - 1 Week Discharge Medications: Continued tamsulosin [Flomax] 0.4 mg capsule 0.4 mg PO DAILY Trelegy Ellipta 100-62.5-25 mcg blister with device 1 inh inhalation DAILY metoprolol succinate 50 mg tablet extended release 24 hr 50 mg PO DAILY magnesium hydroxide 400 mg (170 mg magnesium) tablet,chewable 400 mg PO DAILY albuterol sulfate 90 mcg/actuation HFA aerosol inhaler 2 inh inhalation Q6H PRN (Reason: shortness of breath or wheezing) Qty: 8.5 2RF Eliquis 5 mg tablet 5 mg PO BID Qty: 180 0RF Narcan 4 mg/actuation spray,non-aerosol 4 mg NASAL Q2-3M PRN (Reason: opioid overdose) Qty: 2 0RF Rx Instructions: spray 1 dose into ONE nostril; alternate nostrils w each dose until help arrives oxycodone 10 mg tablet 10 mg PO Q6H Qty: 120 0RF alprazolam [Xanax] 1 mg tablet 1 mg PO QID MDD 4mg PRN (Reason: anxiety) Qty: 120 0RF Date of admission: 06/17/24 09:10 Primary Care Provider: Louis Hewitt Admitting Provider: Mery Rico Attending physician on admission: Mery Rico Condition: Stable Hospitalist MIPS Heart Failure (Exclusion) Patient has history of Heart Transplant or Left Ventricular Assistive Device?: No IF YES, STOP HERE Heart Failure (Qualifier) Patient has current or prior documentation of LVEF less than or equal to 40%, or mod/servere depressed LVSF?: No IF NO, STOP HERE
--- NOTE | 2024-06-19 12:58 | P.PNNEUR_ITS ---
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 - Myoclonus; T50.905A - Adverse effect of unspecified drugs, medicaments and biological substances, initial encounter Status: Acute (2) Chronic back pain: Qualifiers: Back pain location: back pain in unspecified location Back pain laterality: unspecified Qualified Code(s): M54.9 - Dorsalgia, unspecified; G89.29 - Other chronic pain Code(s): M54.9 - Dorsalgia, unspecified; G89.29 - Other chronic pain Status: Acute (3) Depression: Qualifiers: Depression Type: major depressive disorder Major depression recurrence: recurrent Active/Remission status: currently active Major depression episode severity: mild Qualified Code(s): F33.0 - Major depressive disorder, recurrent, mild Code(s): F32.A - Depression, unspecified Status: Acute (4) Anxiety: Code(s): F41.9 - Anxiety disorder, unspecified Status: Acute (5) Congestive heart failure, unspecified: Qualifiers: Heart failure type: combined systolic and diastolic Heart failure chronicity: chronic Qualified Code(s): I50.42 - Chronic combined systolic (congestive) and diastolic (congestive) heart failure Code(s): I50.9 - Heart failure, unspecified Status: Acute (6) Atrial fibrillation: Code(s): I48.91 - Unspecified atrial fibrillation Status: Acute (7) Splenic laceration: Code(s): S36.039A - Unspecified laceration of spleen, initial encounter Status: Acute Plan the patient should avoid hydrocodone in view of the myoclonus observed at the time admission which now has improved since he has been off the medication. I also received a call from the hospitalist that there were concern regarding possible multiple sclerosis based upon MRI which showed some white matter changes. I have reviewed this and also another MRI done previously last year and do not see any change and I do not feel that these are findings sufficient to make a diagnosis of multiple sclerosis and clinically also he does not have any evidence for multiple sclerosis. Subjective Date/time seen: 06/19/24 12:58 Interval history: The patient is 58-year-old with history of for myoclonus and splenic laceration and numbness in the right arm, atrial fibrillation, CHF was seen for follow-up. He is feeling much better. His myoclonus has improved. He was seen by the surgeon with regard to splenic laceration and I believe that a follow-up is planned. Patient has history of chronic lower back pain and has been on hydrocodone 4-5 tablets of 10 mg each in the past. There is also family history of non alcoholic cirrhosis of liver. Patient also suffers from anxiety and depression. He does not smoke. EEG was normal. He denies any other additional new symptoms today. Review of Systems Review of Systems: All systems reviewed & are unremarkable except as noted in HPI and below Constitutional: Constitutional: Denies chills, Denies fever(s) and Denies weight loss Eyes: Eyes: Denies diplopia and Denies loss of vision ENT: Denies dizziness, Denies hearing loss and Denies tinnitus Cardiovascular: Cardiovascular: Denies chest pain, Denies syncope and Denies dyspnea Respiratory: Respiratory: Denies cough, Denies dyspnea and Denies wheezing Gastrointestinal: Gastrointestinal: Denies abdominal pain, Denies change in bowel habits and Denies vomiting Genitourinary: Genitourinary: Denies urinary incontinence Musculoskeletal: Musculoskeletal: Denies arthralgias and Denies joint swelling Integumentary/Breasts: Skin/Breast: Denies new lesions and Denies rash Neurologic: Reports as per HPI, Denies dizziness, Denies syncope and Denies loss of vision Psychiatric: Psychiatric: Denies anxiety and Denies depression Endocrine: Endocrine: Denies cold intolerance and Denies heat intolerance Hematologic/Lymphatic: Hematologic/Lymphatic: Denies easy bleeding and Denies easy bruising Allergic/Immunologic: Allergic/Immunologic: Denies no additional allergic/immunologic complaints and Denies wheezing Exam Const: General: no acute distress Orientation/consciousness: oriented to person, oriented to place and oriented to time HENMT: Head: normocephalic and atraumatic Ears: hearing grossly normal bilaterally and external ears normal Face/Nose/Sinus: Normal external nose present Mouth: Yes Normal oral and palatal mucosa present Eyes: General: appearance normal, both eyes and all related structures Eyelids: eyelids normal Conjunctivae: conjunctivae normal Pupils: Equal, round and reactive pupils present EOM: No Nystagmus present Neck: Neck: normal visual inspection Resp: Effort & Inspection: normal respiratory effort Skin: General skin exam: normal color Neuro: General: oriented to person, oriented to place and oriented to time Cranial nerves: Yes CN's II-XII intact bilaterally, Yes Equal, round and reactive pupils present, Yes Bilaterally intact EOM present, Yes Nystagmus not present, Yes Normal facial strength present, Yes facial symmetry, Yes Midline tongue present, Yes Normal hearing present, Yes Ability to bilaterally elevate shoulders present and No Nystagmus present Speech: normal speech Gait exam (Neuro): Normal gait present Motor exam (neuro): 5/5 motor strength present throughout, Normal motor muscle tone present throughout and Motor abnormalities not present Sensory Exam: normal sensation Coordination: [id number] test normal Other: No myoclonic jerks were noted Extrem: General: normal to inspection Psych: Appearance: grossly normal Mental Status: mental status grossly normal Affect: normal affect Attitude: cooperative Objective Data Vital Signs Vital Signs: Vital Signs - 24 hr 06/18/24 16:00 06/18/24 16:04 06/18/24 20:00 Temperature 97.0 F L 98.4 F Pulse Rate 97 106 H 88 Respiratory Rate 18 18 Blood Pressure 109/74 110/79 Pulse Oximetry 98 98 Oxygen Delivery 06/18/24 20:00 06/19/24 00:00 06/19/24 00:00 Temperature 98.1 F Pulse Rate 85 77 75 Respiratory Rate 18 Blood Pressure 100/74 Pulse Oximetry 98 Oxygen Delivery 06/19/24 04:00 06/19/24 04:00 06/19/24 08:21 Temperature 98.1 F Pulse Rate 76 74 107 H Respiratory Rate 18 Blood Pressure 97/73 L Pulse Oximetry 98 Oxygen Delivery 06/19/24 08:28 06/19/24 08:34 06/19/24 08:52 Temperature 97.2 F L Pulse Rate 105 H 76 Respiratory Rate 18 Blood Pressure 121/90 Pulse Oximetry 100 Oxygen Delivery Room Air Intake/Output Intake/Output: Intake & Output 06/16/24 06/17/24 06/18/24 06/19/24 23:59 23:59 23:59 23:59 Intake Total 2780 2450 2470 1680 Output Total 140 747 3349 Balance 2780 2250 1670 -620 Meds/Results Medications: Active Medications Generic Name Dose Route Start Last Admin Trade Name Freq PRN Reason Stop Dose Admin Non-Formulary Medication 4 mg 06/17/24 17:44 Naloxone [Narcan] NASAL Q2-3M PRN opioid overdose Radiology Results: ITS Impressions Chest X-Ray 06/15/24 21:49 IMPRESSION: Globular enlarged cardiac silhouette which may be due to cardiomegaly cervical pericardial effusion is not excluded Pulmonary vascular prominence and redistribution suggesting pulmonary venous hypertension, mild congestive heart failure Chest/Abdomen/Pelvis CTA 06/15/24 21:53 IMPRESSION: Relative high density fluid collection subjacent to the spleen, with somewhat ill-defined inferior splenic margin, suggesting splenic laceration or rupture with hemoperitoneum Cardiomegaly, mild pericardial effusion Dr. Cheng telephoned the findings to physician promotions assistant Britni in the emergency room on 06/15/2024 at [address] 06/16/24 05:47 IMPRESSION: 1. Normal brain. Brain MRI 06/16/24 15:08 IMPRESSION: 1. Scattered T2 and FLAIR hyperintense signal areas in the deep white matter and subcortical areas which may indicate white matter disease like multiple sclerosis. Clinical correlation and further evaluation advised. Otherwise, No definite intracranial abnormality seen. Labs Labs: Laboratory Results - last 24 hr 06/19/24 05:09 WBC 8.3 RBC 4.45 L Hgb 14.2 Hct 42.5 MCV 95.5 MCH 31.9 MCHC 33.4 RDW 13.2 Plt Count 158 MPV 9.0 Immature Gran % (Auto) 0.2 Neut % (Auto) 67.6 Lymph % (Auto) 25.3 [place] % (Auto) 5.7 Eos % (Auto) 0.4 Baso % (Auto) 0.8 Lymph # (Auto) 2.09 [place] # (Auto) 0.5 Eos # (Auto) 0.0 Baso # (Auto) 0.1 Abs Immat Gran (auto) 0.02 Absolute Neuts (auto) 5.6 Absolute Nucleated RBC 0.000 Nucleated RBC % 0.0 Sodium 140 Potassium 4.2 Chloride 105 Carbon Dioxide 29 Anion Gap 6 BUN 18 Creatinine 1.08 Estim Creat Clear Calc Not Reportable Estimated GFR > 60 Glucose 98 Calcium 8.8 Total Bilirubin 1.1 AST 21 ALT 31 Alkaline Phosphatase 49 Total Protein 6.0 L Albumin 3.5
== END 2024-06-19 11:20 | disposition home or self-care (01) | DRG 814 ==
LOC: ANHED 06-16 00:10 → ANH3MEDSUR 06-16 01:21 → ANH3MED 06-16 08:14
PROVIDERS: Hospitalist; Internal Medicine; Admitting Provider Internal Medicine; Emergency Provider Physician Assistant; PCP Family Medicine; Visit Provider Nurse Practitioner Family
DX: D73.5 Infarction of spleen (principal); K66.1 Hemoperitoneum; I48.92 Unspecified atrial flutter; I50.42 Chronic combined systolic (congestive) and diastolic (congestive) heart failure; G25.3 Myoclonus; T50.905A Adverse effect of unspecified drugs, medicaments and biological substances, initial encounter; F32.A Depression, unspecified; F41.9 Anxiety disorder, unspecified; G89.29 Other chronic pain; I11.0 Hypertensive heart disease with heart failure; I48.91 Unspecified atrial fibrillation; J43.9 Emphysema, unspecified; M54.9 Dorsalgia, unspecified; Z79.01 Long term (current) use of anticoagulants
CPT/HCPCS: 36415; 70450; 70551; 71045; 71275; 74174; 80048; 80053; 80307; 82077; 82550; 83605; 83690; 83735; 83880; 84443; 84484; 85014; 85018; 85025; 85610; 85730; 86850; 86900; 86901; 93005; 94640; 95816; 96361; 96374; 96375; 96376; 99285; A9270; G0378; J1953; J2060; J2270; J7030; Q9967

== ENCOUNTER 2024-07-08 09:31 | Outpatient (CLI) | payer MEDICARE, SELFPAY ==
[2024-07-08 09:55] LABS: Hematocrit 45.5 % (42.0-52.0); Hemoglobin 15.3 g/dL (14.0-18.0); Mean Corpuscular HGB Conc 33.6 g/dl (32-36); Mean Corpuscular Hemoglobin 32.2 pg (26-34); Mean Corpuscular Volume 95.8 fl (80-100); Mean Platelet Volume 8.3 fl (7.4-10.4); Platelet Count Result 233 k/mm3 (150-375); Red Blood Count 4.75 M/mm3 (4.6-6.20); Red Cell Distribution Width 13.9 % (11.5-14.5); White Blood Count 6.6 K/mm3 (4.5-10.0)
--- OUTSIDE RECORDS SUMMARY | 2024-07-08 10:08 | XMS_ITS | Encounter Summary ---
Author Organization [facility] Address [address] [place] [place] [address] Care Team Providers Care [employer]tron[employer] Technician Name Role Phone Louis Hewitt MD Primary Care Provider [phone] Encounter Details Date Type Department Care Team (Late st Contact Info) Description 12/09/2018 Telephone [facility] [address] [place] [address] Eunice Jara RN Social History Tobacco Use Types Packs/Day Years Used Date Smoking Tobacco: Never Smokeless Tobacco: Never Sex and Gender Information Value Date Recorded Sex Assigned at Not on file Legal Sex Male 5:25 AM [employer] Gender Identity Not on file Sexual Orientation Not on file documented as of this encounter Progress Notes * Eunice Jara RN - 12/09/2018 10:51 AM CDT Left message for pt re: arrival time, pre proc instr, and CB# documented in this encounter Plan of Treatment Not on file documented as of this encounter Visit Diagnoses Not on filedocumented in this encounter Care Teams Medtronics Technician Relationship Specialty Start Date End Date Louis Hewitt MD [address] [place] [address] PCP - General 08/26/18 documented as of this encounter
--- OUTSIDE RECORDS SUMMARY | 2024-07-08 10:08 | XMS_ITS | Clinical Summary ---
Author Organization [facility] Address [address] [place] [address] Care Team Providers Care Service Crew Leader Name Role Phone Louis Hewitt MD Primary Care Provider [phone] Allergies Active Allergy Reactions Criticality Noted Date Comments Ciprofloxacin Fever,Rash Medium 08/26/2018 Medications Eliquis 5 mg tablet Take 1 tablet (5 mg total) by mouth 2 (two) times a day 05/10/19 21 Active albuterol 1.25 mg/3 mL nebulizer solution as needed 03/10/20 19 Active metoprolol XL (TOPROL-XL) 50 mg extended release tablet Take 1 tablet (50 mg total) by mouth daily Active acetaminophen (TYLENOL) 325 mg tabletIndications :Fever,Pain Take 2 tablets (650 mg total) by mouth every 4 (four) hours as needed for pain or fever 100 tablet 07/01/19 25 025 Active folic acid (FOLVITE) 1 mg tabletIndications :Treatment of known or suspected Wernicke's Encephalopathy Take 1 tablet (1 mg total) by mouth daily for 2 doses 2 tablet 07/02/19 25 Active thiamine (VITAMIN B-1) 250 mg tabletIndications :Treatment of known or suspected Wernicke's Encephalopathy Take 1 tablet (250 mg total) by mouth daily for 5 doses 5 tablet 07/03/19 25 Active ALPRAZolam (XANAX) 1 mg tablet Take 1 tablet (1 mg total) by mouth 3 (three) times a day as needed 025 Discontinued(St op Taking at Discharge) DULoxetine DR (CYMBALTA) 60 mg capsule 60 mg daily 04/27/19 21 025 Discontinued HYDROcodone-aceta minophen (NORCO) 10-325 mg per tablet Take 1 tablet by mouth every 6 (six) hours as needed 025 Discontinued magnesium oxide (MAG-OX) 400 mg (241.3 mg elemental magnesium) tablet Take by mouth daily 03/26/18 70 025 Discontinued(St op Taking at Discharge) Active Problems Problem Noted Date Diagnosed Date Benzodiazepine withdrawal 06/29/2024 Assessment & Plan (06/30/2024 12:14 PM CDT): S/p lorazepam, s/b toxicology. Concern for underlying psych issue with ongoing delusions. 30-day supply of oral alprazolam dispensed most recently on 06/05/2024. However pt inconsistent with reporting, stating forgot to take medications, they were stolen, etc. Now appears improved 06/29. Pt with persistent odd, flat affect 06/30, but no delusions. Discussed psych, tox follow up recommendations. Monitored for anxiety, diaphoresis, irritability, tremor, tachycardia, hypotension, hypothermia, psychosis and seizures. Strict benzodiazepine abstinence recommended. Encephalopathy acute 06/28/2024 Assessment & Plan (06/30/2024 12:02 PM CDT): Confusion and bizarre statements in setting of running out of xanax a few days ago (last prescribed mid may). Initial Ddx: BZD withdrawal delirium (subjectively improved after ativan but still making bizarre statements) vs underlying psych process since bizarre statements started before running out of xanax vs wernicke's (carnivore diet). Workup: TSH nl, B12 413, RPR NR, UDS w/ BZD and MJ, UA neg, Head CT negative. HIV & RPR nonreactive, homocysteine WNL, B12 normal, MMA pending & folate 15.4, normal. Continued high dose IV thiamine repletion for suspected Wernicke's (can be given IM, if needed), then PO supplementation and per psych, needed 2 days of IV thiamine before transferring to psych. Formal psych consult for follow up evaluation, address need for psych inpt management. Spoke with psych 06/29, 06/30. In case of acute agitation, may consider Haldol 5 mg PO Q4hr PRN, or Haldol 5 mg + Ativan 2 mg IM Q4hr PRN if severely agitated or refusing PO, but not required. Pt remains calm since transfer to floor. Cleared by toxicology. Plan DC home today to continue PO thiamine and OP primary psychiatry and PCP follow up. Plan DC home. Discharge Planning I have spent 30 minutes on discharge planning activities. Time spent was on Coordination of care, Follow up , Counselling with patient/family, discharge exam, parent/patient education, PCP communication, and Other provider communication. BMI 25.0-25.9,adult 11/26/2020 NAFLD (nonalcoholic fatty liver disease) 021 Assessment & Plan (06/30/2024 12:03 PM CDT): Monitor stooling, check ammonia level & acute hepatitis panel, as ALT 61, liver enzymes otherwise normal. Normal blood counts. Checked INR to assess synthetic function, 1.33 (mildly elevated). Checked acute hepatitis panel to evaluate isolated transaminase elevation and negative. Prior BMI 26=>21.77. Maintain healthy weight. F/u with PCP, liver specialist. Encouraged strict alcohol & recreational drug abstinence. Depressive episode 05/14/2020 Paroxysmal atrial fibrillation 05/14/2020 Assessment & Plan (06/30/2024 12:14 PM CDT): Eliquis, metoprolol on rate control. F/u with PCP. Essential hypertension 05/14/2020 Resolved Problems Problem Noted Date Diagnosed Date Resolved Date BMI 27.0-27.9,adult 05/14/2020 11/27/19 21 Encounters Date Type Department Care Team Description 07/04/2024 SHOP/CHAP Initial Outreach [facility] OP CASE MANAGEMENT [address] [place] [address] Margarita Stoner RN 07/02/2024 SHOP/CHAP Initial Outreach [facility] OP CASE MANAGEMENT [address] [place] [address] Margarita Stoner RN 07/01/2024 SHOP/CHAP Initial Outreach [facility] OP CASE MANAGEMENT [address] [place] [address] Margarita Stoner RN 07/01/2024 SHOP/CHAP Initial Eligibility Review [facility] OP CASE MANAGEMENT [address] [place] [address] Margarita Stoner RN 06/28/2024 3:09 AM CDT - 06/30/2024 3:14 PM CDT Hospital Encounter [facility] [address] [place] [address] John Spicer MD Liang, MD Addy Stern, MD Camille Alvarez, Samantha Parsons MD Encephalopathy acute (Primary Dx); Benzodiazepine withdrawal with complication (HCC); Atrial fibrillation, unspecified type (HCC) Discharge Disposition: Discharge to home or self [...] Tobacco: Never Tobacco Cessation:Counseling Given: Not Answered Personal Safety Answer Date Recorded Have you ever been in or are you currently in a harmful physical or emotional relationship or is someone making you feel afraid or unsafe? Denies 06/28/2024 Sex and Gender Information Value Date Recorded Sex Assigned at Not on file Legal Sex Male 11:14 PM [employer] Gender Identity Not on file Sexual Orientation Not on file Obstetrics History Last Filed Vital Signs Vital Sign Reading Time Taken Comments Blood Pressure 118/91 06/30/2024 2:00 PM CDT Pulse 90 06/30/2024 2:00 PM CDT Temperature 36.6 C (97.9 F) 06/30/2024 2:00 PM CDT Respiratory Rate 18 06/30/2024 2:00 PM CDT Oxygen Saturation 99% 06/30/2024 2:00 PM CDT Inhaled Oxygen Concentration - - Weight 59.3 kg (130 lb 12.8 oz) 06/28/2024 8:46 PM CDT Height 165.1 cm (5' 5 ) 06/28/2024 8:46 PM CDT Body Mass Index 21.77 06/28/2024 8:46 PM CDT Plan of Treatment Health Maintenance Due Date Last Done Comments Colon Cancer Screening-Colonoscopy 1964 Depression Screening 1964 Prostate Cancer Screening-PSA 1964 DTaP/Tdap/Td Vaccine (1 - Tdap) 09/12/1975 Hepatitis B Screening 1982 Regular Well Visit/Exam 18-64 1982 Pneumococcal vaccine <65 (1 of 2 - PCV) 09/12/1983 Zoster Vaccine (1 of 2) 2014 Influenza Vaccine (Season Ended) 2024 Hepatitis C Screening Completed 06/29/2024, 021 Procedures Procedure Name Priority Date/Time Associated Diagnosis Comments AMMONIA STAT 06/29/2024 11:30 PM CDT PROTIME-INR Routine 06/29/2024 10:32 PM CDT HEPATITIS PANEL, ACUTE Routine 11:13 AM CDT METHYLMALONIC ACID, SERUM STAT 06/28/2024 11:08 PM CDT HOMOCYSTEINE STAT 06/28/2024 11:08 PM CDT FOLATE STAT 06/28/2024 11:08 PM CDT HIV 1/2 ANTIBODY PLUS P24 ANTIGEN STAT 06/28/2024 11:08 PM CDT AMMONIA STAT 06/28/2024 3:17 PM CDT VITAMIN B12 Routine 06/28/2024 2:01 PM CDT RPR STAT 06/28/2024 2:01 PM CDT ECG 12-LEAD Routine 06/28/2024 12:53 PM CDT TROPONIN I HIGH-SENSITIVITY 4-HOUR Timed 06/28/2024 8:[address] HEAD WO CONTRAST ED 06/28/2024 6 :03 AM CDT TROPONIN I HIGH-SENSITIVITY 2-HOUR Timed 06/28/2024 5:55 AM CDT ECG 12-LEAD STAT 06/28/2024 5:40 AM CDT DRUGS OF ABUSE SCREEN, URINE WITHOUT CONFIRMATION STAT 06/28/2024 5:32 AM CDT URINALYSIS AND REFLEX TO MICROSCOPIC AND CULTURE STAT 06/28/2024 5:32 AM CDT ETHANOL STAT 06/28/2024 4:09 AM CDT EGFR STAT 06/28/2024 4:09 AM CDT TROPONIN I HIGH-SENSITIVITY SERIES (BASELINE, 2HR, 4HR, 6HR) STAT 06/28/2024 4:09 AM CDT THYROID FUNCTION CASCADE STAT 06/28/2024 4:09 AM CDT COMPREHENSIVE METABOLIC PANEL STAT 06/28/2024 4:09 AM CDT XR CHEST PA LATERAL 2 VIEWS ED 06/28/2024 4:04 AM CDT DIFFERENTIAL AUTO STAT 06/28/2024 3:2 1 AM CDT CBC WITH AUTO DIFFERENTIAL STAT 06/28/2024 3:21 AM CDT from Last 3 Months Results * Ammonia (06/29/2024 11:30 PM CDT) Ammonia 41 <=50 mcmol/L Blood 06/29/2024 11:3 0 PM CDT 06/29/2024 11:37 PM CDT Samantha Obrien MD LAB BLOOD ORDERABLES Final Result Performing Organization Address [facility] de Phone Number [facility] [place] [address] * (ABNORMAL) Protime-INR (06/29/2024 10:32 PM CDT) PT 14.4(H) 9.7 - 13.0 sec INR 1.33(H) 0.90 - 1.20 [facility] Comment: Interpretive data Oral anticoagulant therapeutic ranges: Venous thromboembolism prophylaxis or treatment: 2.0-3.0 CARDIOLOGY Standard range: 2.0-3.0 High-intensity range: 2.5-3.5 Refer to indication-specific guidelines for appropriate target ranges for prosthetic heart valve replacement. Current interpretive data was last revised on 2019. Blood 06/29/2024 10:3 2 PM CDT 06/29/2024 11:28 PM CDT Samantha Obrien MD LAB BLOOD ORDERABLES Final Result Performing Organization Address [facility] [place] [address] * Hepatitis panel, acute Blood (06/29/2024 11:13 AM CDT) Hep A IgM Nonreactive Nonreactive Hep B core IgM Nonreactive Nonreactive [facility] Hep C Ab Nonreactive Nonreactive [facility] Comment:Antibodies to HCV no t detected. Does NOT exclude the possibility of recent exposure to HCV. Current interpretive data was last revised on 21 HepBsAg Nonreactive Nonreactive [facility] Blood 06/29/2024 11:1 3 AM CDT 06/29/2024 12:25 PM CDT Samantha Obrien MD LAB MICROBIOLOGY - GENERAL ORDERABLES Final Result Performing Organization Address [facility] [place] [address] * HIV 1/2 Antibody plus p24 Antigen Blood (06/28/2024 11:08 PM CDT) [facility] HIV 1/2 ab + p24 ag Nonreactive Nonreactive Comment:Nonreactive for HIV- 1 antigen and HIV-1/HIV-2 antibodies. No laboratory evidence of HIV infection. If acute HIV infection is suspected, consider testing for HIV-1 RNA. Current interpretive data was last revised on 21. Blood 06/28/2024 11:0 8 PM CDT 06/28/2024 11:57 PM CDT Result [facility] Sayda Davila MD PhD LAB MICROBIOLOGY - GENERAL ORDERABLES Final Result Performing Organization Address [facility] [place] [address] * Methylmalonic acid, serum (06/28/2024 11:08 PM CDT) [facility] MMA 0.29 <=0.40 nmol/mL [place] [facility] Comment: ADDITIONAL INFORMATION This test was developed and its performance characteristics determined by [facility] in a manner consistent with CLIA requirements. This test has not been cleared or approved by the U.S. Food and Drug Administration. Test Performed by: [facility] - [address] [address] Tank Bottom Assembler: Savage Thomas Ph.D.; CLIA# [id number] Blood 06/28/2024 11:0 8 PM CDT 06/28/2024 11:55 PM CDT Result [facility] Sayda Davila MD PhD LAB BLOOD ORDERABLES Final Result Performing Organization Address City/[facility]/ZIP Co de Phone Number [facility] [place] [address] [facility] * Homocysteine (06/28/2024 11:08 PM CDT) Homocysteine 11.3 0.0 - 15.0 mcmol/L Blood 06/28/2024 11:0 8 PM CDT 06/28/2024 11:55 PM CDT Sayda Davila MD PhD LAB BLOOD ORDERABLES Final Result Performing Organization Address [facility] [place] [address] * Folate (06/28/2024 11:08 PM CDT) Folic acid 15.4 >=5.0 ng/mL Blood 06/28/2024 11:0 8 PM CDT 06/28/2024 11:56 PM CDT Sayda Davila MD PhD LAB BLOOD ORDERABLES Final Result Performing Organization Address [facility] Co de Phone Number [facility] [place] [address] * Ammonia (06/28/2024 3:17 PM CDT) Ammonia 25 <=50 mcmol/L Blood 06/28/2024 3:17 PM CDT 06/28/2024 3:23 PM CDT Miguel Ángel Montanez MD LAB BLOOD ORDERABLES Final Result Performing Organization Address City/[facility]/ZIP Co de Phone Number [facility] [place] [address] * RPR Blood (06/28/2024 2:01 PM CDT) RPR Nonreactive Nonreactive Blood 06/28/2024 2:01 PM CDT 06/28/2024 2:24 PM CDT Miguel Ángel Montanez MD LAB MICROBIOLOGY - GE NERAL ORDERABLES Final Result Performing Organization Address [facility] de Phone Number [facility] Department [place] [address] * Vitamin B12 (06/28/2024 2:01 PM CDT) Pathologist [facility] Vitamin B12 413 230 - 1,250 pg/mL Blood 06/28/2024 2:01 PM CDT 06/28/2024 2:24 PM CDT Miguel Ángel Montanez MD LAB BLOOD ORDERABLES Final Result Performing Organization Address [facility] de Phone Number [facility] Department [place] [address] * ECG 12-LEAD (06/28/2024 12:53 PM CDT) Narrative [facility] - 06/28/2024 12:53 PM CDT Miguel Ángel Montanez MD 06/28/2024 12:54 PM ECG 12 lead Date/Time: 06/28/2024 12:53 PM Performed by: Miguel Ángel Montanez MD Authorized by: Miguel Ángel Montanez MD Quality: Tracing quality: Limited by artifact Rate: ECG rate: 52 ECG rate assessment: bradycardic Rhythm: Rhythm: atrial fibrillation Ectopy: Ectopy: none QRS: QRS axis: Normal QRS intervals: Normal Conduction: Conduction: normal ST segments: ST segments: Normal T waves: T waves: non-specific Previous ECG: Previous ECG: Unavailable Interpretation: Interpretation: No acute injury pattern Recommended Follow-up: Recommended follow up: further workup in the ED Procedure Note Miguel Ángel Montanez MD - 06/28/2024 12:53 PM CDT Procedure ECG 12 lead Date/Time: 06/28/2024 12:53 PM Performed by: Miguel Ángel Montanez MD Authorized by: Miguel Ángel Montanez MD Quality: Tracing quality: Limited by artifact Rate: ECG rate: 52 ECG rate assessment: bradycardic Rhythm: Rhythm: atrial fibrillation Ectopy: Ectopy: none QRS: QRS axis: Normal QRS intervals: Normal Conduction: Conduction: normal ST segments: ST segments: Normal T waves: T waves: non-specific Previous ECG: Previous ECG: Unavailable Interpretation: Interpretation: No acute injury pattern Recommended Follow-up: Recommended follow up: further workup in the ED Miguel Ángel Montanez MD 06/28/24 1109 us Miguel Ángel Montanez MD ECG ORDERABLES Final Result [facility] * Troponin I high-sensitivity 4-hour (06/28/2024 8:15 AM CDT) Trop I hs 5 <=35 ng/L Comment: Interpretive Data For further hscTnI resources including the diagnostic algorithm and an aid in interpretation, copy and paste this link: https://bjhlab.testcatalog.org/show/[email or web address] Current Interpretive Data last revised 2019. Trop I hs delta 0 ng/L [facility] Trop I hs interp Insignificant [facility] Blood 06/28/2024 8:15 AM CDT 06/28/2024 8:38 AM CDT us Toni Ornelas MD LAB BLOOD ORDERABLES Final Result [facility] [place] [address] * CT Head WO Contrast (06/28/2024 6:03 AM CDT) Anatomical Region Laterality Modality Head and Neck N/A Computed Tomogra phy 06/28/2024 6:32 AM CDT Impressions 06/28/2024 8:34 AM CDT No acute intracranial process. Dictated by: Dolores Ya MD The radiology attending physician has personally reviewed this study, and had reviewed and/or edited this written report and agrees with it. Electronically signed by: Justen Bennett M.D. Narrative 06/28/2024 8:34 AM CDT EXAMINATION: CT head without contrast HISTORY: Altered mental status TECHNIQUE: CT of the head was performed with images acquired from skull base to vertex without intravenous contrast. COMPARISON: None Available. FINDINGS: There is no acute intracranial hemorrhage. Ventricles are of normal size and morphology. No mass effect or midline shift is present. The george-white matter differentiation is normal. The visualized portions of the orbits are normal. The visualized portions of the mastoids are normal. Mild mucosal thickening of the ethmoid and sphenoid sinuses. No fractures are identified. There are atherosclerotic calcifications involving both intracranial internal carotid arteries. Procedure Note Justen Bennett III, MD PhD - 06/28/2024 EXAMINATION: CT head without contrast HISTORY: Altered mental status TECHNIQUE: CT of the head was performed with images acquired from skull base to vertex without intravenous contrast. COMPARISON: None Available. FINDINGS: There is no acute intracranial hemorrhage. Ventricles are of normal size and morphology. No mass effect or midline shift is present. The george-white matter differentiation is normal. The visualized portions of the orbits are normal. The visualized portions of the mastoids are normal. Mild mucosal thickening of the ethmoid and sphenoid sinuses. No fractures are identified. There are atherosclerotic calcifications involving both intracranial internal carotid arteries. IMPRESSION: No acute intracranial process. Dictated by: Dolores Ya MD The radiology attending physician has personally reviewed this study, and had reviewed and/or edited this written report and agrees with it. Electronically signed by: Justen Bennett M.D. John Spicer MD IMG CT PROCEDURES Final R esult * Troponin I high-sensitivity 2-hour (06/28/2024 5:55 AM CDT) Trop I hs 6 <=35 ng/L Comment: Interpretive Data For further hscTnI resources including the diagnostic algorithm and an aid in interpretation, copy and paste this link: https://bjhlab.testcatalog.org/show/[email or web address] Current Interpretive Data last revised 2019. Trop I hs delta 1 ng/L [facility] Trop I hs interp Insignificant [facility]J H Blood 06/28/2024 5:55 AM CDT 06/28/2024 6:15 AM CDT us Toni Ornelas MD LAB BLOOD ORDERABLES Final Result [facility] Department [place] [address] * ECG 12-LEAD (06/28/2024 5:40 AM CDT) Narrative [facility] - 06/28/2024 5:40 AM CDT John Sipcer MD 06/28/2024 5:41 AM ECG 12 lead Date/Time: 06/28/2024 5:40 AM Performed by: John Spicer MD Authorized by: John Spicer MD Quality: Tracing quality: Limited by artifact Rate: ECG rate: 96 Rhythm: Rhythm: atrial fibrillation Ectopy: Ectopy: none QRS: QRS axis: Right QRS intervals: Normal Conduction: Conduction: abnormal Abnormal conduction: incomplete RBBB ST segments: ST segments: Non-specific T waves: T waves: non-specific Previous ECG: Previous ECG: Unavailable Interpretation: Interpretation: non-specific Procedure Note John Spicer MD - 06/28/2024 5:40 AM CDT Procedure ECG 12 lead Date/Time: 06/28/2024 5:40 AM Performed by: John Spicer MD Authorized by: John Spicer MD Quality: Tracing quality: Limited by artifact Rate: ECG rate: 96 Rhythm: Rhythm: atrial fibrillation Ectopy: Ectopy: none QRS: QRS axis: Right QRS intervals: Normal Conduction: Conduction: abnormal Abnormal conduction: incomplete RBBB ST segments: ST segments: Non-specific T waves: T waves: non-specific Previous ECG: Previous ECG: Unavailable Interpretation: Interpretation: non-specific John Spicre MD 06/28/24 0541 us John Spicer MD ECG ORDERABLES Final Res ult Performing Organization Address City/[facility]/ZIP Co de Phone Number [facility] * Urinalysis reflex to microscopic and culture Urine (06/28/2024 5:32 AM CDT) [employer] Signature Color, ur Straw Yellow Clarity, ur Clear Clear [facility] Specific gravity, ur 1.021 1.003 - 1.030 [facility] pH, urine 5.5 [facility] Comment: Interpretive Data U rine pH is affected by diet, medications, systemic acid-base disturbances, and renal tubular function. pH may affect urinary stone formation. For example, urine pH below 6.0 may help reduce the tendency for calcium phosphate stones and pH greater than 6.0 may reduce the tendency for uric acid stone formation. Source: [facility] Current Interpretive Data was last revised on 2017 Protein, ur ql Negative Negative [facility] Glucose, ur ql Negative Negative [facility] Ketones, ur Negative Negative [facility] Bilirubin, ur Negative Negative [facility] Blood, ur Negative Negative [facility] Urobilinogen, ur <2.0 <2.0 mg/dL [facility] Nitrite, ur Negative Negative [facility] Leukocyte esterase, ur Negative Negative [facility] UA reflex comment Reflex conditions for microscopic UA and culture not met. [facility] Urine 06/28/2024 5:32 AM CDT 06/28/2024 5:43 AM CDT us John Spicer MD LAB MICROBIOLOGY - GENERA L ORDERABLES Final Result [facility] [address] [facility] Department [place] [address] * (ABNORMAL) Drugs of Abuse Screen, Urine without Confirmation (06/28/2024 5:32 AM CDT) Amphetamine, ur Not Detected CutOff 500ng/mL Comment: Interpretive Data - Amphetamines: Samples containing greater than 500 ng/mL d-methamphetamine or other cross-reacting amphetamine compounds are reported as positive. Amphetamine immunoassays are subject to significant false positive rates due to cross-reactivity of non-amphetamine drugs. Confirmatory testing required for definitive results. Current Interpretive Data was last reviewed 2022. Barbiturates, ur Not Detected CutOff 200ng/mL [facility] Comment: Interpretive Data - Barbiturates: Samples containing greater than 200 ng/mL secobarbital or other cross-reacting barbiturate compounds are reported as positive. False positive and false negative results are possible. Confirmatory testing required for definitive results. Current Interpretive Data was last reviewed 2022. Benzodiazepines, ur Screen Positive, presumptive (A) CutOff 100ng/mL [facility] Comment: Interpretive Data - Benzodiazepines: Samples containing greater than 100 ng/mL nordiazepam or other cross-reacting compounds are reported as positive. False positive and false negative results are possible. Confirmatory testing required for definitive results. Current Interpretive Data was last reviewed 2022. Cannabinoids, ur Screen Positive, presumptive (A) CutOff 50 ng/mL [facility] Comment: Interpretive Data - Cannabinoids: Samples containing greater than 50 ng/mL delta-9 THC -COOH or other cross- reacting compounds are reported as positive. False positive and false negative results are possible. Confirmatory testing required for definitive results. Current Interpretive Data was last reviewed 2022. Cocaine, ur Not Detected CutOff 150ng/mL [facility] Comment: Interpretive Data - Cocaine: Samples containing greater than 150 ng/mL benzoylecgonine or other cross- reacting compounds are reported as positive. False positive and false negative results are possible. Confirmatory testing required for definitive results. Current Interpretive Data was last reviewed 2022. Fentanyl, Ur Not Detected CutOff 5 ng/mL [facility] Comment: Interpretive Data - Fentanyl: Samples containing greater than 5 ng/mL norfentanyl, fentanyl, or other cross-reacting fentanyl compounds are reported as positive. False positive and false negative results are possible. Confirmatory testing required for definitive results. Current Interpretive Data was last reviewed 2023. Methadone, ur Not Detected CutOff 300ng/mL [facility] Comment: Interpretive Data - Methadone: Samples containing greater than 300 ng/mL d,l-methadone or other cross-reacting compounds are reported as positive. False positive and false negative results are possible. Confirmatory testing required for definitive results. Current Interpretive Data was last reviewed 2022. Opiates, ur Not Detected CutOff 300ng/mL [facility] Comment: Interpretive Data - Opiates: Samples containing greater than 300 ng/mL morphine or other cross-reacting compounds are reported as positive. False positive and false negative results are possible. Confirmatory testing required for definitive results. Current Interpretive Data was last reviewed 2022. Oxycodone, ur Not Detected CutOff 100ng/mL [facility] Comment: Interpretive Data - Oxycodone: Samples containing greater than 100 ng/mL oxycodone or other cross-reacting compounds are reported as positive. False positive and false negative results are possible. Confirmatory testing required for definitive results. Current Interpretive Data was last reviewed 2022. Phencyclidine, ur Not Detected CutOff 25 ng/mL [facility] Comment: Interpretive Data - Phencyclidine: Samples containing greater than 25 ng/mL phencyclidine or other cross-reacting compounds are reported as positive. False positive and false negative results are possible. Confirmatory testing required for definitive results. Current Interpretive Data was last reviewed 2022. Urine Creatinine 122 mg/dL [facility] Comment: Interpretive Data Urine Creatinine: < 10 mg/dL is extremely dilute = or > 10 but < 20 mg/dL is dilute = or > 20 mg/dL is normal Current Interpretive Data was last revised on 2017. Urine 06/28/2024 5:32 AM CDT 06/28/2024 5:50 AM CDT Narrative [facility] - 06/28/2024 6:22 AM CDT Drug of Abuse screening is performed by immunoassay for medical purposes only. This is not to be used for Pain Management purposes. us John Spicer MD LAB URINE ORDERABLES Grace flores Result [facility] [address] [facility] Department [place] [address] * Troponin I high-sensitivity series (baseline, 2hr, 4hr, 6hr) (06/28/2024 4:09 AM CDT) Trop I hs 5 <=35 ng/L Comment: Interpretive Data For further hscTnI resources including the diagnostic algorithm and an aid in interpretation, copy and paste this link: https://bjhlab.testcatalog.org/show/hsTrop-1 Current Interpretive Data last revised 2019. Blood 06/28/2024 4:09 AM CDT 06/28/2024 4:44 AM CDT Toni Ornelas MD LAB BLOOD ORDERABLES Final Result [facility] [address] [facility] Department [place] [address] * eGFR (06/28/2024 4:09 AM CDT) eGFR 68 >=60 mL/min/1. 73 m2 Comment: Interpretive Data Reference Interval Normal >/= 90 mL/min/1.73m2 Mildly decreased* 60 - 89 mL/min/1.73m2 Mildly to moderately decreased 45 - 59 mL/min/1.73m2 Moderately to severely decreased 30 - 44 mL/min/1.73m2 Severely decreased 15 - 29 mL/min/1.73m2 Kidney Failure < 15 mL/min/1.73m2 *Relative to young adult level Estimated glomerular filtration rate is determined by the 2020 CKD-EPI equation recommended by the National Kidney Foundation (A Unifying Approach to GFR Estimation: Recommendations of the NKF-ASK Task Force on Reassessing the Inclusion of Race in Diagnosing Kidney Disease, JASN 202). The CKD-EPI equation should not be used for patients with unstable renal function and has not been validated in children and those over 70. Current interpretive data was last reviewed 2021. Blood 06/28/2024 4:09 AM CDT 06/28/2024 4:09 AM CDT John Spicer MD LAB BLOOD ORDERABLES Grace l Result Performing Organization Address [facility] Co de Phone Number [facility] [place] [address] * Thyroid Function [place] (06/28/2024 4:09 AM CDT) Pathologist [facility] TSH 2.04 0.30 - 4.20 mcIUnit/mL Blood 06/28/2024 4:09 AM CDT 06/28/2024 4:09 AM CDT John Spicer MD LAB BLOOD ORDERABLES Grace l Result Performing Organization Address [facility] de Phone Number [facility] [place] [address] * Ethanol (06/28/2024 4:09 AM CDT) Pathologist [facility] Ethanol <10 <=10 mg/dL Comment: Interpretive Data Legal limit of intoxication > or = 80 mg/dL Levels > or = 400 mg/dL are potentially TOXIC. Current interpretive data was last revised on 2018. Blood 06/28/2024 4:09 AM CDT 06/28/2024 4:09 AM CDT Miguel Ángel Montanez MD LAB BLOOD ORDERABLES Final Result Performing Organization Address [facility] Co de Phone Number [facility] [place] [address] * (ABNORMAL) Comprehensive metabolic panel (06/28/2024 4:09 AM CDT) Pathologist [facility] Sodium 143 135 - 145 mmol/L Potassium, pl 4.0 3.3 - 4.9 mmol/L [facility] Chloride 107 97 - 110 mmol/L [facility] CO2 27 22 - 32 mmol/L [facility] Anion gap 9 2 - 15 mmol/L [facility] BUN 24 6 - 25 mg/dL [facility] Creatinine 1.22 0.80 - 1.30 mg/dL [facility] Glucose 114 70 - 199 mg/dL [facility] Comment: Interpretive Data Fasting glucose >/= 126 mg/dl is diagnostic for diabetes. Fasting is defined as no caloric intake for at least 8 hours. Fasting glucose between 100 mg/dl to 125 mg/dl is diagnostic of prediabetes. In a patient with classic symptoms of hyperglycemia or hyperglycemic crisis, a random glucose >/= 200 mg/dl is diagnostic for diabetes. In the absence of unequivocal hyperglycemia, results should be confirmed by repeat testing. The classification and Diagnosis of Diabetes Diabetes Care 2021; 46: S19-S40. Current interpretive data was last revised 2022. Calcium 9.4 8.5 - 10.3 mg/dL [facility] Bilirubin, total 0.9 0.1 - 1.2 mg/dL [facility] Protein, pl 6.2(L) 6.5 - 8.5 g/dL [facility] Albumin 3.9 3.5 - 5.0 g/dL [facility] Alk phos 58 40 - 130 Units/L [facility] ALT 61(H) 7 - 55 Units/L [facility] AST 33 10 - 50 Units/L [facility] Blood 06/28/2024 4:09 AM CDT 06/28/2024 4:09 AM CDT us John Spicer MD LAB BLOOD ORDERABLES Grace l Result [facility] [address] [facility] [place] [address] * XR Chest Pa Lateral 2 Vw (06/28/2024 4:04 AM CDT) Anatomical Region Laterality Modality Body, Chest N/A Computed Radiogr aphy 06/28/2024 4:47 AM CDT Impressions 06/28/2024 10:26 AM CDT No chest radiograph is available for comparison. There is no focal pneumonic consolidation, pleural effusion, or pneumothorax. There is enlargement of the main pulmonary artery and prominence of the pulmonary vasculature as can be seen in pulmonary hypertension. Mild enlargement of the cardiac silhouette.. Dictated by: Marcellus Jarquin MD The radiology attending physician has personally reviewed this study, and had reviewed and/or edited this written report and agrees with it. Electronically signed by: Elizabeth Egan M.D. Narrative 06/28/2024 10:26 AM CDT EXAMINATION: 2 view chest radiograph Procedure Note Elizabeth Egan MD - 06/28/2024 EXAMINATION: 2 view chest radiograph IMPRESSION: No chest radiograph is available for comparison. There is no focal pneumonic consolidation, pleural effusion, or pneumothorax. There is enlargement of the main pulmonary artery and prominence of the pulmonary vasculature as can be seen in pulmonary hypertension. Mild enlargement of the cardiac silhouette.. Dictated by: Marcellus Jarquin MD The radiology attending physician has personally reviewed this study, and had reviewed and/or edited this written report and agrees with it. Electronically signed by: Elizabeth Egan M.D. us John Spicer MD IMG XR PROCEDURES Final R esult * Differential, auto (06/28/2024 3:21 AM CDT) Neutrophil abs 4.78 1.50 - 6.50 K/cumm Imm gran abs 0.02 0.00 - 0.10 K/cumm [facility] Lymphocyte abs 1.69 0.80 - 3.30 K/cumm [facility] Monocyte abs 0.47 0.20 - 0.80 K/cumm [facility] Eosinophil abs 0.01 0.00 - 0.50 K/cumm [facility] Basophil abs 0.04 0.00 - 0.10 K/cumm [facility] Neutrophil pct 68.2 % [facility] Comment: Interpretive Data Percent cell count reference ranges are not reported, since discordance with absolute values may lead to misinterpretation of CBC data. Current Interpretive Data was last revised on 2017. Imm gran pct 0.3 % [facility] Comment: Interpretive Data Percent cell count reference ranges are not reported, since discordance with absolute values may lead to misinterpretation of CBC data. Current Interpretive Data was last revised on 2017. Lymphocyte pct 24.1 % [facility] Comment: Interpretive Data Percent cell count reference ranges are not reported, since discordance with absolute values may lead to misinterpretation of CBC data. Current Interpretive Data was last revised on 2017. Monocyte pct 6.7 % [facility] Comment: Interpretive Data Percent cell count reference ranges are not reported, since discordance with absolute values may lead to misinterpretation of CBC data. Current Interpretive Data was last revised on 2017. Eosinophil pct 0.1 % [facility] Comment: Interpretive Data Percent cell count reference ranges are not reported, since discordance with absolute values may lead to misinterpretation of CBC data. Current Interpretive Data was last revised on 2017. Basophil pct 0.6 % [facility] Comment: Interpretive Data Percent cell count reference ranges are not reported, since discordance with absolute values may lead to misinterpretation of CBC data. Current Interpretive Data was last revised on 2017. Blood 06/28/2024 3:21 AM CDT 06/28/2024 4:08 AM CDT us John Spicer MD LAB BLOOD ORDERABLES Grace l Result [facility] [address] [facility] Department [place] [address] * (ABNORMAL) CBC with auto differential (06/28/2024 3:21 AM CDT) WBC 7.01 3.80 - 9.90 K/cumm Hgb 14.0 13.0 - 17.5 g/dL [facility] Hct 40.8 38.9 - 50.3 % [facility] Plt 210 150 - 400 K/cumm [facility] MPV 8.8(L) 9.1 - 12.3 fL [facility] RBC 4.39 4.30 - 5.80 M/cumm [facility] MCV 92.9 81.3 - 96.4 fL [facility] MCH 31.9 27.1 - 33.3 pg [facility] MCHC 34.3 32.3 - 35.7 g/dL [facility] RDW CV 13.5 11.1 - 14.9 % [facility] 45.7 35.7 - 48.1 fL [facility] NRBC abs 0.00 0.00 - 0.01 K/cumm [facility] Blood 06/28/2024 3:21 AM CDT 06/28/2024 4:08 AM CDT us John Spicer MD LAB BLOOD ORDERABLES Grace flores Result Performing Organization Address City/State/[facility] Co de Phone Number [facility] Department [place] [address] from Last 3 Months Insurance [facility] MEDICARE ADVANTAGE [facility] MEDIC[facility] Address: [facility] [address] [place] [address] MEDICARE IDPA MANAGED MEDICARE GENERIC RISK OTHER [facility] MEDICARE ADVANTAGE [facility] MEDICARE ADVANTAGE Advance Directives For more information, please contact: [phone] * Full Code (Latest Code Status on File) Date Activated Date Inactivated Comments 06/28/2024 9:57 PM 06/30/2024 7:14 PM Care Teams Service Crew Leader Relationship Specialty Start Date End Date Louis Hewitt MD PCP - General Family Medicine 01/12/20
--- OUTSIDE RECORDS SUMMARY | 2024-07-08 10:08 | XMS_ITS | Encounter Summary ---
Author Organization [facility] Address [address] [place] [address] Phone Care Team Providers Care Mechanic Foreman Name Role Phone Louis Hewitt MD Primary Care Provider + [phone] Margarita Stoner RN Unavailable [phone] Encounter Details Date Type Department Care Team (Late st Contact Info) Description 07/18/2023 Orders Only [facility] Scanning, Provider Social History Tobacco Use Types Packs/Day Years Used Date Smoking Tobacco: Never Smokeless Tobacco: Never Sex and Gender Information Value Date Recorded Sex Assigned at Not on file 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 Gender Identity Not on file Sexual Orientation [...] Diagnoses Not on filedocumented in this encounter Additional Health Concerns Infection Onset Date Last Indicated Resolved Time Ring Surveillance Comment:Discharge swab was not collected, IP RAFAELA Floresis - [id number] 06/29/2024 06/29/2024 07/07/2024 3:05 AM C DT documented as of this encounter Care Teams Mechanic Foreman Relationship Specialty Start Date End Date Luois Hewitt MD PCP - General Family Medicine 01/12/20 Margarita Stoner, RN [address] [address] [facility] Electro Mechanical Assembler 07/01/24 07/03/24 documented as of this encounter
--- OUTSIDE RECORDS SUMMARY | 2024-07-08 10:08 | XMS_ITS | Encounter Summary ---
Author Organization [facility] Address [address] [place] [address] Phone Care Team Providers Care Promotional Model Name Role Phone Louis Hewitt MD Primary Care Provider + [phone] Margarita Stoner RN Unavailable [phone] Encounter Details Date Type Department Care Team (Late st Contact Info) Description 05/08/2023 Orders Only [facility] Scanning, Provider Social History Tobacco Use Types Packs/Day Years Used Date Smoking Tobacco: Never Smokeless Tobacco: Never Sex and Gender Information Value Date Recorded Sex Assigned at Not on file 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
--- OUTSIDE RECORDS SUMMARY | 2024-07-08 10:08 | XMS_ITS | Continuity of Care Document ---
Author Organization [facility] Address [address] [place] [address] Phone Care Team Providers Care Supervisor Slitting And Shipping Name Role Phone Sandra Vazquez Unavailable Unavailable Advance Directives Directive Yes / No Effective Date File Name No Information Encounters Encounter Description Practice Location Reason(s) For Visit Diagnoses Date Provider Providers Copied on Encounter [facility], [address], [place], [place], [id number], [place] tel:[phone] SEC [facility] No Information [phone] Taylor Flores. [address] , [address], [place], [address], [place]. tel:[phone] Family History Family Member Type Diagnosis Age At Onset No Information Payers Payer name Insurance type Covered libertarian ID Authoriza tion(s) Medicaid [facility] [id number] Social History Type Description Quantity Date Captured [...]
--- OUTSIDE RECORDS SUMMARY | 2024-07-08 10:08 | XMS_ITS | Referral Summary ---
Author Organization [facility] Address [address] [place] [address] Care Team Providers Care Systems Integration Manager Name Role Phone Louis Hewitt MD Primary Care Provider Encounters Date Type Department Care Team Description 07/04/2024 SHOP/CHAP Initial Outreach [facility] OP CASE MANAGEMENT [address] [place] [address] Margarita Stoner, RAFAELA 07/02/2024 SHOP/CHAP Initial Outreach [facility] OP CASE MANAGEMENT [address] [place] [address] Margarita Stoner, RAFAELA 07/01/2024 SHOP/CHAP Initial Outreach [facility] OP CASE MANAGEMENT [address] [place] [address] Margarita Stoner, RAFAELA 07/01/2024 SHOP/CHAP Initial Eligibility Review [facility] OP CASE MANAGEMENT [address] [place] [phone] Margarita Stoner, RAFAELA 06/28/2024 3:09 AM CDT - 06/30/2024 3:14 PM CDT Hospital Encounter [address] [address] John Spicer MD Liang, MD Addy Stern, MD Camille Alvarez Suzanne M., MD Encephalopathy acute (Primary Dx); Benzodiazepine withdrawal [...] on file 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 Gender Identity Not on file Sexual Orientation [...] 06/28/2024 8:46 PM CDT Plan of Treatment Not on file [...] 0 PM CDT 06/29/2024 11:37 PM CDT us Samantha Obrien MD LAB BLOOD ORDERABLES Final Result Performing Organization Address City/State/[facility] Co de Phone Number [facility] Department [place] [address] * (ABNORMAL) Protime-INR (06/29/2024 10:32 PM CDT) PT 14.4(H) 9.7 - 13.0 sec INR 1.33(H) 0.90 - 1.20 [facility] Comment: Interpretive data Oral anticoagulant therapeutic ranges: Venous thromboembolism prophylaxis or treatment: 2.0-3.0 CARDIOLOGY Standard range: 2.0-3.0 High-intensity range: 2.5-3.5 Refer to indication-specific guidelines for appropriate target ranges for prosthetic heart valve replacement. Current interpretive data was last revised on 2019. Blood 06/29/2024 10:3 2 PM CDT 06/29/2024 11:28 PM CDT Samantha Obrien MD LAB BLOOD ORDERABLES Final Result Performing Organization Address [facility] [place] [address] * Hepatitis panel, acute Blood (06/29/2024 11:13 AM CDT) Hep A IgM Nonreactive Nonreactive Hep B core IgM Nonreactive Nonreactive [facility] Hep C Ab Nonreactive Nonreactive [facility] Comment:Antibodies to HCV no t detected. Does NOT exclude the possibility of recent exposure to HCV. Current interpretive data was last revised on 21 HepBsAg Nonreactive Nonreactive [facility] Blood 06/29/2024 11:1 3 AM CDT 06/29/2024 12:25 PM CDT Samantha Obrien MD LAB MICROBIOLOGY - GENERAL ORDERABLES Final Result Performing Organization Address [facility] [place] [place] [address] * HIV 1/2 Antibody plus p24 Antigen Blood (06/28/2024 11:08 PM CDT) HIV 1/2 ab + p24 ag Nonreactive Nonreactive Comment:Nonreactive for HIV- 1 antigen and HIV-1/HIV-2 antibodies. No laboratory evidence of HIV infection. If acute HIV infection is suspected, consider testing for HIV-1 RNA. Current interpretive data was last revised on 21. Blood 06/28/2024 11:0 8 PM CDT 06/28/2024 11:57 PM CDT us Sayda Davila MD PhD LAB MICROBIOLOGY - GENERAL ORDERABLES Final Result Performing Organization Address City/[facility]/ZIP Co de Phone Number [facility] [place] [address] * Methylmalonic acid, serum (06/28/2024 11:08 PM CDT) Pathologist [facility] MMA 0.29 <=0.40 nmol/mL [facility] Comment: ADDITIONAL INFORMATION This test was developed and its performance characteristics determined by [facility] in a manner consistent with CLIA requirements. This test has not been cleared or approved by the U.S. Food and Drug Administration. Test Performed by: [address] [address] [employer] Operator: Savage Thomas Ph.D.; CLIA# [id number] Blood 06/28/2024 11:0 8 PM CDT 06/28/2024 11:55 PM CDT Sayda Davila MD PhD LAB BLOOD ORDERABLES Final Result Performing Organization Address City/[facility] [place] [address] [facility] * Homocysteine (06/28/2024 11:08 PM CDT) Pathologist [facility] Homocysteine 11.3 0.0 - 15.0 mcmol/L Blood 06/28/2024 11:0 8 PM CDT 06/28/2024 11:55 PM CDT Sayda Davila MD PhD LAB BLOOD ORDERABLES Final Result [facility] [place] [address] * Folate (06/28/2024 11:08 PM CDT) Pathologist [facility] Folic acid 15.4 >=5.0 ng/mL Blood 06/28/2024 11:0 8 PM CDT 06/28/2024 11:56 PM CDT Sayda Davila MD PhD LAB BLOOD ORDERABLES Final Result Performing Organization Address [facility]/ZIP Co de Phone Number [facility] Department [place] [address] * Ammonia (06/28/2024 3:17 PM CDT) [facility] Ammonia 25 <=50 mcmol/L Blood 06/28/2024 3:17 PM CDT 06/28/2024 3:23 PM CDT Miguel Ángel Montanez MD LAB BLOOD ORDERABLES Final Result Performing Organization Address [facility] de Phone Number [facility] Department [place] [address] * RPR Blood (06/28/2024 2:01 PM CDT) [facility] RPR Nonreactive Nonreactive Blood 06/28/2024 2:01 PM CDT 06/28/2024 2:24 PM CDT Miguel Ángel Montanez MD LAB MICROBIOLOGY - GE NERAL ORDERABLES Final Result Performing Organization Address [facility] Co de Phone Number [facility] [place] [address] * Vitamin B12 (06/28/2024 2:01 PM CDT) [facility] Vitamin B12 413 230 - 1,250 pg/mL Blood 06/28/2024 2:01 PM CDT 06/28/2024 2:24 PM CDT Miguel Ángel Montanez MD LAB BLOOD ORDERABLES Final Result [facility] Department [place] [address] * ECG 12-LEAD (06/28/2024 12:53 PM CDT) Narrative [facility] - 06/28/2024 12:53 PM CDT Miguel Ángel [...] the ED Miguel Ángel Montanez MD 06/28/24 1254 us Miguel Ángel Montanez MD ECG ORDERABLES Final Result [facility] * Troponin I high-sensitivity 4-hour (06/28/2024 8:15 AM CDT) Trop I hs 5 <=35 ng/L Comment: Interpretive Data For further hscTnI resources including the diagnostic algorithm and an aid in interpretation, copy and paste this link: https://bjhlab.testcatalog.org/show/hsTrop-1 Current Interpretive Data last revised 2019. Trop I hs delta 0 ng/L [facility] Trop I hs interp Insignificant [facility] Blood 06/28/2024 8:1 5 AM CDT 06/28/2024 8:38 AM CDT us Toni Ornelas MD LAB BLOOD ORDERABLES Final Result [facility] Department [place] [address] * CT Head WO Contrast (06/28/2024 6:03 [...] it. Electronically signed by: Justen Bennett M.D. us John Spicer MD IMG CT PROCEDURES Final R esult * Troponin I high-sensitivity 2-hour (06/28/2024 5:55 AM CDT) Trop I hs 6 <=35 ng/L Comment: Interpretive Data For further hscTnI resources including the diagnostic algorithm and an aid in interpretation, copy and paste this link: https://bjhlab.testcatalog.org/show/hsTrop-1 Current Interpretive Data last revised 2019. Trop I hs delta 1 ng/L [facility] Trop I hs interp Insignificant [facility] Blood 06/28/2024 5:55 AM CDT 06/28/2024 6:15 AM CDT us Toni Ornelas MD LAB BLOOD ORDERABLES Final Result [facility] Department [place] [address] * ECG 12-LEAD (06/28/2024 5:40 AM CDT) Narrative [facility] - 06/28/2024 5:40 AM CDT John Spicer MD 06/28/2024 5:41 AM ECG 12 lead [...] Previous ECG: Unavailable Interpretation: Interpretation: non-specific John Spicer MD 06/28/24 0541 John Spicer MD ECG ORDERABLES Final Res ult [facility] * Urinalysis reflex to microscopic and culture Urine (06/28/2024 5:32 AM CDT) Color, ur Straw Yellow Clarity, ur Clear Clear [facility] Specific gravity, ur 1.021 1.003 - 1.030 [facility] pH, urine 5.5 [facility] Comment: Interpretive Data U rine pH is affected by diet, medications, systemic acid-base disturbances, and renal tubular function. pH may affect urinary stone formation. For example, urine pH below 6.0 may help reduce the tendency for calcium phosphate stones and pH greater than 6.0 may reduce the tendency for uric acid stone formation. Source: [facility] Current Interpretive Data was last revised on 2017 Protein, ur ql Negative Negative [facility] Glucose, ur ql Negative Negative [facility] Ketones, ur Negative Negative [facility] Bilirubin, ur Negative Negative [facility] Blood, ur Negative Negative [facility] Urobilinogen, ur <2.0 <2.0 mg/dL [facility] Nitrite, ur Negative Negative [facility] Leukocyte esterase, ur Negative Negative [facility] UA reflex comment Reflex conditions for microscopic UA and culture not met. [facility] Urine 06/28/2024 5:32 AM CDT 06/28/2024 5:43 AM CDT us John Spicer MD LAB MICROBIOLOGY - GENERA L ORDERABLES Final Result [facility] Department [place] [address] * (ABNORMAL) Drugs of Abuse Screen, Urine [...] 2022. Barbiturates, ur Not Detected CutOff 200ng/mL [facility] Comment: Interpretive Data - Barbiturates: Samples containing greater than 200 ng/mL secobarbital or other cross-reacting barbiturate compounds are reported as positive. False positive and false negative results are possible. Confirmatory testing required for definitive results. Current Interpretive Data was last reviewed 2022. Benzodiazepines, ur Screen Positive, presumptive (A) CutOff 100ng/mL [facility] Comment: Interpretive Data - Benzodiazepines: Samples containing greater than 100 ng/mL nordiazepam or other cross-reacting compounds are reported as positive. False positive and false negative results are possible. Confirmatory testing required for definitive results. Current Interpretive Data was last reviewed 2022. Cannabinoids, ur Screen Positive, presumptive (A) CutOff 50 ng/mL [facility] Comment: Interpretive Data - Cannabinoids: Samples containing greater than 50 ng/mL delta-9 THC -COOH or other cross- reacting compounds are reported as positive. False positive and false negative results are possible. Confirmatory testing required for definitive results. Current Interpretive Data was last reviewed 2022. Cocaine, ur Not Detected CutOff 150ng/mL [facility] Comment: Interpretive Data - Cocaine: Samples containing greater than 150 ng/mL benzoylecgonine or other cross- reacting compounds are reported as positive. False positive and false negative results are possible. Confirmatory testing required for definitive results. Current Interpretive Data was last reviewed 2022. Fentanyl, Ur Not Detected CutOff 5 ng/mL [facility] Comment: Interpretive Data - Fentanyl: Samples containing greater than 5 ng/mL norfentanyl, fentanyl, or other cross-reacting fentanyl compounds are reported as positive. False positive and false negative results are possible. Confirmatory testing required for definitive results. Current Interpretive Data was last reviewed 2023. Methadone, ur Not Detected CutOff 300ng/mL [facility] Comment: Interpretive Data - Methadone: Samples containing greater than 300 ng/mL d,l-methadone or other cross-reacting compounds are reported as positive. False positive and false negative results are possible. Confirmatory testing required for definitive results. Current Interpretive Data was last reviewed 2022. Opiates, ur Not Detected CutOff 300ng/mL [facility] Comment: Interpretive Data - Opiates: Samples containing greater than 300 ng/mL morphine or other cross-reacting compounds are reported as positive. False positive and false negative results are possible. Confirmatory testing required for definitive results. Current Interpretive Data was last reviewed 2022. Oxycodone, ur Not Detected CutOff 100ng/mL [facility] Comment: Interpretive Data - Oxycodone: Samples containing greater than 100 ng/mL oxycodone or other cross-reacting compounds are reported as positive. False positive and false negative results are possible. Confirmatory testing required for definitive results. Current Interpretive Data was last reviewed 2022. Phencyclidine, ur Not Detected CutOff 25 ng/mL [facility] Comment: Interpretive Data - Phencyclidine: Samples containing greater than 25 ng/mL phencyclidine or other cross-reacting compounds are reported as positive. False positive and false negative results are possible. Confirmatory testing required for definitive results. Current Interpretive Data was last reviewed 2022. Urine Creatinine 122 mg/dL [facility] Comment: Interpretive Data Urine Creatinine: < 10 mg/dL is extremely dilute = or > 10 but < 20 mg/dL is dilute = or > 20 mg/dL is normal Current Interpretive Data was last revised on 2017. Urine 06/28/2024 5:32 AM CDT 06/28/2024 5:50 AM CDT Narrative [facility] - 06/28/2024 6:22 AM CDT Drug of Abuse screening is performed by immunoassay for medical purposes only. This is not to be used for Pain Management purposes. John Spicer MD LAB URINE ORDERABLES Grace l Result Performing Organization Address City/[facility] Co de Phone Number [facility] [place] [address] * Troponin I high-sensitivity series (baseline, 2hr, [...] Ornelas MD LAB BLOOD ORDERABLES Final Result Performing Organization Address [facility] Co de Phone Number [facility] Department [place] [address] * eGFR (06/28/2024 4:09 AM CDT) eGFR [...] of Race in Diagnosing Kidney Disease, JASN 2020). The CKD-EPI equation should not be used for patients with unstable renal function and has not been validated in children and those over 70. Current interpretive data was last reviewed 2021. Blood 06/28/2024 4:09 AM CDT 06/28/2024 4:09 AM CDT us John Spicer MD LAB BLOOD ORDERABLES Grace l Result Performing Organization Address City/[facility]/[place] [address] * Thyroid Function [place] (06/28/2024 4:09 AM CDT) TSH 2.04 0.30 - 4.20 mcIUnit/mL Blood 06/28/2024 4:09 AM CDT 06/28/2024 4:09 AM CDT us John Spicer MD LAB BLOOD ORDERABLES Grace l Result [facility] [place] [address] * Ethanol (06/28/2024 4:09 AM CDT) Ethanol <10 <=10 mg/dL Comment: Interpretive Data Legal limit of intoxication > or = 80 mg/dL Levels > or = 400 mg/dL are potentially TOXIC. Current interpretive data was last revised on 2018. Blood 06/28/2024 4:09 AM CDT 06/28/2024 4:09 AM CDT us Miguel Ágnel Montanez MD LAB BLOOD ORDERABLES Final Result [facility] [place] [address] * (ABNORMAL) Comprehensive metabolic panel (06/28/2024 4:09 AM CDT) Pathologist [facility] Sodium 143 135 - 145 mmol/L Potassium, pl 4.0 3.3 - 4.9 mmol/L [facility] Chloride 107 97 - 110 mmol/L [facility] CO2 27 22 - 32 mmol/L [facility] Anion gap 9 2 - 15 mmol/L [facility] BUN 24 6 - 25 mg/dL [facility] Creatinine 1.22 0.80 - 1.30 mg/dL [facility] Glucose 114 70 - 199 mg/dL [facility] Comment: Interpretive Data Fasting glucose >/= 126 [...] 2022. Calcium 9.4 8.5 - 10.3 mg/dL [facility] Bilirubin, total 0.9 0.1 - 1.2 mg/dL [facility] Protein, pl 6.2(L) 6.5 - 8.5 g/dL [facility] Albumin 3.9 3.5 - 5.0 g/dL [facility] Alk phos 58 40 - 130 Units/L [facility] ALT 61(H) 7 - 55 Units/L [facility] AST 33 10 - 50 Units/L [facility] Blood 06/28/2024 4:09 AM CDT 06/28/2024 4:09 AM CDT us John Spicer MD LAB BLOOD ORDERABLES Grace l Result [facility] Department [place] [address] * XR Chest Pa Lateral 2 Vw [...] abs 1.69 0.80 - 3.30 K/cumm [facility] Monocyte abs 0.47 0.20 - 0.80 K/cumm [facility] Eosinophil abs 0.01 0.00 - 0.50 K/cumm [facility] Basophil abs 0.04 0.00 - 0.10 K/cumm [facility] Neutrophil pct 68.2 % [facility] Comment: Interpretive Data Percent cell count reference ranges are not reported, since discordance with absolute values may lead to misinterpretation of CBC data. Current Interpretive Data was last revised on 2017. Imm gran pct 0.3 % [facility] Comment: Interpretive Data Percent cell count reference ranges are not reported, since discordance with absolute values may lead to misinterpretation of CBC data. Current Interpretive Data was last revised on 2017. Lymphocyte pct 24.1 % [facility] Comment: Interpretive Data Percent cell count reference ranges are not reported, since discordance with absolute values may lead to misinterpretation of CBC data. Current Interpretive Data was last revised on 2017. Monocyte pct 6.7 % [facility] Comment: Interpretive Data Percent cell count reference ranges are not reported, since discordance with absolute values may lead to misinterpretation of CBC data. Current Interpretive Data was last revised on 2017. Eosinophil pct 0.1 % [facility] Comment: Interpretive Data Percent cell count reference ranges are not reported, since discordance with absolute values may lead to misinterpretation of CBC data. Current Interpretive Data was last revised on 2017. Basophil pct 0.6 % [facility] Comment: Interpretive Data Percent cell count reference ranges are not reported, since discordance with absolute values may lead to misinterpretation of CBC data. Current Interpretive Data was last revised on 2017. Blood 06/28/2024 3:21 AM CDT 06/28/2024 4:08 AM CDT John Spicer MD LAB BLOOD ORDERABLES Grace l Result Performing Organization Address City/[facility]/ZIP Co de Phone Number [facility] Department of [employer] [place] [address] * (ABNORMAL) CBC with auto differential (06/28/2024 3:21 AM CDT) Pathologist [facility] WBC 7.01 3.80 - 9.90 K/cumm Hgb 14.0 13.0 - 17.5 g/dL [facility] Hct 40.8 38.9 - 50.3 % [facility] Plt 210 150 - 400 K/cumm [facility] MPV 8.8(L) 9.1 - 12.3 fL [facility] RBC 4.39 4.30 - 5.80 M/cumm [facility] MCV 92.9 81.3 - 96.4 fL [facility] MCH 31.9 27.1 - 33.3 pg [facility] MCHC 34.3 32.3 - 35.7 g/dL [facility] RDW CV 13.5 11.1 - 14.9 % [facility] RDW SD 45.7 35.7 - 48.1 fL [facility] NRBC abs 0.00 0.00 - 0.01 K/cumm [facility] Blood 06/28/2024 3:21 AM CDT 06/28/2024 4:08 AM CDT John Spicer MD LAB BLOOD ORDERABLES Grace l Result Performing Organization Address City/[facility]/ZIP Co de Phone Number [facility] Department [place] [address] from Last 3 Months Insurance [facility] MEDICARE [facility] Address[place] [address] [address] [place] [address] MEDICARE [employer] MANAGED MEDICARE GENERIC RISK OTHER [facility] MEDICARE ADVANTAGE [facility] MEDICARE ADVANTAGE Advance Directives For more information, please contact: [phone] * Full Code (Latest Code Status on File) Date Activated Date Inactivated Comments 06/28/2024 9:57 PM 06/30/2024 7:14 PM Care Teams Systems Integration Manager Relationship Specialty Start Date End Date Louis Hewitt MD PCP - General Family Medicine 01/12/20
--- OUTSIDE RECORDS SUMMARY | 2024-07-08 10:08 | XMS_ITS | CONTINUITY OF CARE DOCUMENT ---
Author Name natan gama Address Unknown Organization [facility] Address [address] [place] [address] Phone [phone] Care Team Providers Care Commercial Real Estate Underwriter Name Role Phone Obey SORTO, Gretchen Unavailable BRITTNEY SORTO, ENOC F Unavailable BRITTNEY SORTO, ENOC F Unavailable [phone] PROBLEMS Condition Status Date Provider Notes Atrial [...] right active Gretchen ames MD Hypotension active Grecthen Barnhart MD ENCOUNTERS Date Type Provider Location Encounter Diag nosis - In-person encounter Office Visit Gretchen Barnhart MD [facility] - In-person encounter Office Visit Gretchen Barnhart MD [facility] Hypotension - In-person encounter Office Visit Grecthen Barnhart MD [facility] Foot pain, swelling, right - In-person encounter Office Visit Gretchen Barnhart MD [facility] ObesityHx of Hernia - In-person encounter Office Visit Gretchen Barnhart MD [facility] - In-person encounter Office Visit Gretchen Barnhart MD [facility] Shortness of breath--echo ef 52%, mild lvh, severe R and LAE, mild mr, AD ca on lad on ct scan, nl stress nuc hronic back pain, sciatica - In-person encounter Office Visit Gretchen Barnhart MD [facility] Atrial Fibrillation, s/p CV on Eliquis , has a l peristant superior vena cavaCurrent use of Warfarin - INR per [facility] cardiovasc. examination - In-person encounter Office Visit Erica Anderson MD [facility] - In-person encounter Office Visit Erica Anderson MD [facility] Atrial Fibrillation, s/p CV on Eliquis , has a l peristant superior vena cava - In-person encounter Office Visit Gretchen Barnhart MD [facility] - In-person encounter Office Visit Erica Anderson MD [facility] - In-person encounter Office Visit Erica Anderson MD [facility] - In-person encounter Office Visit Erica Anderson MD [facility] - In-person encounter Office Visit Erica Anderson MD [facility] - In-person encounter Office Visit Erica Anderson MD [facility] - In-person encounter Office Visit Erica Anderson MD [facility] - In-person encounter Office Visit Brian Dunn MD [facility] - In-person encounter Office Visit Gretchen Barnhart MD [facility] - In-person encounter Office Visit Brian Dunn MD [facility] - In-person encounter Office Visit Brian Dunn MD [facility] Atrial Fibrillation, s/p CV on Eliquis , has a l peristant superior vena cava - In-person encounter Office Visit Brian Dunn MD [facility] Atrial Fibrillation, s/p CV on Eliquis , has a l peristant superior vena cavaSyncope - In-person encounter Office Visit Gretchen Barnhart MD [facility] Atrial Fibrillation, s/p CV on Eliquis , has a l peristant superior vena cavaCAD ca on lad on ct scan, nl stress nuc 11/2021 - In-person encounter Office Visit Gretchen Barnhart MD [facility] Shortness of breath--echo ef 52%, mild [...] [place] oxygen saturation, oximetry 97 % Goldie Pierre Part respiratory rate E&M 12 /min Goldie [place] pulse rate 82 /min Goldie Pierre Part weight E&M 148 [lb_av] Goldie [place] height E&M 66 [in_i] Goldie Pierre Part Body Mass Index (Ratio) 25.82 kg/m2 Justyn Barnhart MD blood pressure, diastolic 71 mm[Hg] [facility], systolic 91 mm[Hg] Liz z [facility] oxygen saturation, oximetry 96 % Yane Pierre Part pulse rate 58 /min [facility] respiratory rate E&M 18 /min Yane Adamson illetom weight E&M 160 [lb_av] [facility] height E&M 66 [in_i] [facility] Body Mass Index (Ratio) 25.82 kg/m2 Justyn Barnhart MD blood pressure, cuff size regular Valentin [facility] blood pressure, diastolic 73 mm[Hg] Valentin et blood pressure, systolic 101 mm[Hg] Payton [facility] pulse rate 59 /min Alin respiratory rate [...] Danielle Jade weight E&M 155.4 [lb_av] Danielle aJde height E&M 66 [in_i] Danielle Jade Body Mass Index (Ratio) 23.89 kg/m2 Justyn Barnhart MD blood pressure, diastolic 92 mm[Hg] Michelle gutierres Hernandez blood pressure, systolic 116 mm[Hg] Jean Paul figueroa Hernandez oxygen saturation, oximetry 97 % Marina David pulse rate 86 /min Marina Isma palacios weight E&M 148 [lb_av] Marina Isma palacios respiratory rate E&M 16 /min Nay aden [place] blood pressure, cuff size large Michelle gutierres Hernandez height E&M 66 [in_i] Marina Isma palacios Body Mass Index (Ratio) 28.08 kg/m2 Daryl Anderson MD pulse rate 69 /min [facility] blood pressure, diastolic 97 mm[Hg] To nsha Hernandez blood pressure, systolic 138 mm[Hg] Ton [facility] oxygen saturation, oximetry 97 % [facility] Hernandez respiratory rate E&M 16 /min [facility] Hernandez weight E&M 174 [lb_av] Tons Hernandez height E&M 66 [in_i] [facility] Hernandez Body Mass Index (Ratio) 26.50 [...] Cat [place] weight E&M 187 [lb_av] Cat [place] Body Mass Index (Ratio) 30.50 kg/m2 Justyn [...] Index (Ratio) 30.82 kg/m2 José Miguel pennie [facility] blood pressure, cuff size regular rri Gilmar [...] Index (Ratio) 29.53 kg/m2 José Miguel casper [facility] blood pressure, resting No Ruiz ty [place] blood pressure, diastolic 72 mm[Hg] Kr isty Lanny blood pressure, systolic 130 mm[Hg] Kri sty Lanny pulse rate 102 /min Cat Lanny respiratory rate E&M 17 /min Cat [place] oxygen saturation, oximetry 97 % Cat Lanny blood pressure, cuff size regular Kr isty [place] weight E&M 183 [lb_av] Cat [place] height E&M 66 [in_i] Cat [place] blood pressure, diastolic 98 mm[Hg] Da mya Celsa blood pressure, systolic 124 mm[Hg] Dac ia Celsa height E&M 66 [in_i] Kalie Celsa height in centimeters E&M 167.64 cm Da mya [place] blood pressure, diastolic 92 mm[Hg] Me leandra Silva blood pressure, systolic 129 mm[Hg] Padma bernstein Silva pulse rate 88 /min Haley Silva oxygen saturation, oximetry 96 % Haley Silva respiratory rate E&M 15 /min Haley Silva Body Mass Index (Ratio) 30.50 kg/m2 Sherlyn barrios [facility] weight E&M 189 [lb_av] Haley Silva blood pressure, diastolic 95 mm[Hg] Me leandra Silva blood pressure, systolic 144 mm[Hg] Padma bernstein Silva pulse rate 84 /min Haley Silva oxygen saturation, oximetry 96 % Haley Silva respiratory rate E&M 15 /min Haley Silva Body Mass Index (Ratio) 31.95 kg/m2 Sherlyn barrios [facility] weight E&M 198 [lb_av] Haley Silva [...] Lainey Block international normalized ratio (INR) 2.9 Lainye Block Normal coagulation managed by Martin Kelley [...] Kelley RN international normalized ratio (INR) 3.7 [place] Alicia Normal prothrombin time (patient) 44.9 s [place] Alicia coagulation managed by Martin Kelley RN [...] Kelley RN international normalized ratio (INR) 2.7 [place] Alicia Normal prothrombin time (patient) 32.0 s [place] Alicia coagulation managed by Rebecca Mcadams international normalized ratio (INR) 1.9 Norma Barboza Normal prothrombin time (patient) 23.4 s Norma Barboza coagulation managed by Martin Kelley RN international normalized ratio (INR) 1.9 Martin Kelley RN Normal prothrombin time (patient) 22.7 s Martin Kleley RN coagulation managed by Martin Kelley RN international normalized ratio (INR) 2.5 Kalie Celsa Normal prothrombin time (patient) 29.9 s Kalie Celsa coagulation managed by aMrtin Kelley RN international normalized ratio (INR) 2.7 [...] Celsa Normal prothrombin time (patient) 28.6 s Aklie Celsa coagulation managed by Martin Kelley RN [...] revi ewed - no changes [facility] E&M S moking History: [...] E&M revi ewed - no changes required Eriac Anderson MD social history E&M S moking [...] Payer name Policy type / Coverage type [place] red constitution party ID [facility] CHRONIC COMPLETE ASSURE (PPO C-SNP) Medicare [id number] ADVANCE DIRECTIVES Name Date DISCUSSED - NO DECISION MADE TREATMENT PLAN Date Name Performer [id number],S, Cornel Ahmedza i [id number],S, Cornel Ahmedza i [id number],S, Cornel Ahmedza i [id number],S, Cornel Ahmedza i [id number],S, Cornel Ahmedza i [id number],B, Cornel Ahmedza i [id number],S, Cornel Ahmedza i [id number],S, Cornel Ahmedza i [id number],S, Cornel Ahmedza i [id number],S, Cornel Ahmedza i [id number],S, Cornel Ahmedza i [id number],S, Cornel Ahmedza i [id number],S, Cornel Ahmedza i [id number],S, Cornel Ahmedza i [id number],S, Cornel Ahmedza i [id number],S, Cornel Ahmedza i [id number],S, Cornel Ahmedza i [id number],W, Cornel Ahmedza i [id number],S, Cornel Ahmedza i [id number],S, Cornel Ahmedza i [id number],S, Cornel Ahmedza i [id number],S, Cornel Ahmedza i [id number],B, Cornel Ahmedza i [id number],B, Cornel Ahmedza i [id number],W, Cornel Ahmedza i [id number],S, Cornel Ahmedza i [id number],W, Cornel Ahmedza i [id number],S, Cornel Ahmedza i [id number],W, Cornel Ahmedza i Cardiology: H is updated medication list for this problem includes: Metoprolol Succinate 50 Mg Tablet Extended Release 24 Hr (Metoprolol succinate) ..... Take 1 tablet by mouth every night This visit has been a part of the consistent, comprehensive, and ongoing management of the chronic medical condition(s) listed above for the patient. Gretcehn Barnhart MD Cardiology Cornel Ahmedzai Cardiology Cornel [...] rders: M onitor - Telemetry (Mobile Cardiac) (CPT-08218) Cornel Ahmedzai Cardiology Cornel Ahmedzai Cardiology Cornel [...] Currently taking care of teresadomingoyuan. Pt lost weasand trimmer due to insurance change. W ill defer [...] SR. O rders: 9 9213 LTD. Complex (CPT-72018) M obile Cardiac Tele (CPT-08224) [facility] Follow u p faxed [...] 05/22/16:On Warfarin for Afib. INR monitored by [facility]. Brian Dunn MD EP faxed 05/22/16:His updated medication list for this problem includes: Coumadin 5 Mg Tabs (Warfarin sodium) ..... One tab daily except on sat and sun 1 1/2 tab Metoprolol Tartrate 25 Mg Oral Tabs (Metoprolol tartrate) ..... 1.5 pill twice a day Magnesium Oxide 400 Mg Oral Tabs (Magnesium oxide) .... Two tablets twice a day Orders: S NOMED-CT: [id number] Current Medications Documented ([id number]-[id number]) E KG (CPT-67495) M obile Cardiac Tele (CPT-51074) C ardioversion - GC (CPT-53242) T EE - GC (*) Brian Dunn [...] BASIC METABOLIC PANE L W/EGFR DLCO - 67240 FRC - 38366 FVC - 49895 ANGELO - GC Cardioversion - GC Mobile [...] EKG Erica Anderson MD compl eted SNOMED-CT: [id number] Current Medications Documented Erica Anderson MD completed EKG Erica Anderson MD compl eted SNOMED-CT: 994555366218667 Current Medications Documented Erica Anderson MD completed EKG Brian busch MD completed SNOMED-CT: 108731108157078 Current Medications Documented Brian Dunn MD completed SNOMED-CT: 75815012 Physical Exam, Performed: Pulse Exam of Foot Gretchen Barnhart MD completed SNOMED-CT: 076309865198652 Current Medications Documented Gretchen Barnhart MD completed EKKamari Barnhart MD completed EKG ulius Kellee busch MD completed SNOMED-CT: 879986799373543 Current Medications Documented Saulius Mary Joitis completed Brett Barnhart MD completed Protime Brian bsuch MD completed Brett Barnhart MD completed Brett Barnhart MD completed Brett Barnhart MD completed Brett Barnhart MD completed Brett Barnhart MD completed EKG ulius Kellee busch MD completed SNOMED-CT: 385446747912439 Current Medications Documented Saulius Mona SORTO completed INR Strip Brian busch MD completed INR Strip Gretchen Barnhart MD completed Brett Barnhart MD completed BLOOD COUNT HEMOGLOBIN Saulius Eugenia nascimento MD completed FVC - 40606 ulius Kellee busch MD completed FRC - 61057 ulius Kellee busch MD completed DLCO - 76593 Brian busch MD completed EKG Brian busch MD completed SNOMED-CT: 400448770145724 Current Medications Documented Saulius Mary Joitis completed Brett Barnhart MD completed Brett Barnhart MD completed SNOMED-CT: 41613456 Physical Exam, Performed: Pulse Exam of Foot Gretchen Barnhart MD completed Brett Barnhart MD completed SNOMED-CT: 257334185948418 Current Medications Documented Gretchen Barnhart MD completed [...] Images Dacia Canela MD compl eted SNOMED-CT: 39018937 Physical Exam, Performed: Pulse Exam of Foot Gretchen Barnhart MD completed Brett Barnhart MD completed SNOMED-CT: 709756889349748 Current Medications Documented Gretchen Barnhart MD completed EKG Gretchen Barnhart MD completed Brett Barnhart MD completed Brett Barnhart MD completed Brett Barnhart MD completed
--- OUTSIDE RECORDS SUMMARY | 2024-07-08 10:08 | XMS_ITS | Clinical Summary ---
Author Organization [facility] Address [address] [place] [address] Care Team Providers Care Fashion Consultant Selling Name Role Phone Louis Hewitt MD Primary Care Provider [phone] Source Comments [facility],non-owned Affiliates and Associated Physician Practices is amultiple site organization consisting of ambulatory clinics and hospital sitesin [place], [place], [place] and [place]. This disclosure is being madepursuant to the Care Everywhere program and may not contain all information available regarding this patient. Last updated 17.[facility] Allergies Active Allergy Reactions Criticality Noted Date Comments Ciprofloxacin Rash,Fever Medium 08/26/2018 Medications * Be aware that medications may not be up to date on this document. Alwaysverify current medications with the patient. Metoprolol Succinate 25 MG CS24 Take 25 mg by mouth as needed Active ALPRAZolam (XANAX) 1 MG tablet Take 1 mg by mouth 3 times daily as needed for Anxiety Active HYDROcodone-humaira taminophen (NORCO) 10-325 MG tablet Take 1 tablet by mouth every 6 hours as needed for Pain (Every 4-6 hours. Not to exceed 5 pills in 24 hours.) Active apixaban (ELIQUIS) 5 MG tablet Take 5 mg by mouth 2 times daily 11/17/2019 Active albuterol HFA (PROVENTIL; VENTOLIN; PROAIR) 108 (90 Base) MCG/ACT inhaler ProAir HFA 90 mcg/actuatio n aerosol inhaler Active DULoxetine (CYMBALTA) 60 MG capsule 60 mg once daily 04/27/2020 Active cyclobenzaprine (FLEXERIL) 5 MG tablet Take 5 [...] on file Legal Sex Male 5:25 AM QUILL LAYER Gender Identity Not on file Sexual Orientation [...] VACCINE (1 of 2) 2014 COVID-19 VACCINE (1 - 2023-2 5 season) 2023 DEPRESSION SCREENING 03/26/2024 INFLUENZA VACCINE (Season Ended) 2024 HIB VACCINE Aged Out No longer eligi [...] on patient's age to complete this topic Insurance MEDICAID - OUT OF STATE MEDICARE MEDICARE MEDICAID - [place] Care Teams Fashion Consultant Selling Relationship Specialty Start Date End Date Louis Hewitt MD [address] [place] [address] PCP - General 08/26/18
[2024-07-08 10:09] LABS: Alanine Aminotransferase 60 U/L (6-50); Albumin Level 4.3 g/dL (3.5-5.1); Alkaline Phosphatase 49 U/L (38-126); Anion Gap 8 mmol/L (4-12); Aspartate Amino Transferase 30 U/L (17-59); Bilirubin,Total 1.4 mg/dL (0.2-1.3); Blood Urea Nitrogen 24 mg/dL (9-20); Calcium 8.9 mg/dL (8.4-10.2); Carbon Dioxide 27 mmol/L (22-30); Chloride 101 mmol/L (98-107); Estimated Glomerular Filt Rate > 60; Glucose 188 mg/dL (65-110); Potassium 4.2 mmol/L (3.4-5.0); Sodium 136 mmol/L (137-145)
[2024-07-08 10:24] LABS: Free T4 Free Thyroxine 1.28 ng/dL (0.78-2.19)
[2024-07-08 10:40] LABS: Prostate Specific Antigen 0.3 ng/mL (< OR = 4.0)
== END 2024-07-08 09:32 | disposition home or self-care (01) ==
LOC: ANHLAB 09:33
PROVIDERS: PCP Family Medicine; Visit Provider Family Medicine
DX: Z12.5 Encounter for screening for malignant neoplasm of prostate (principal); R79.89 Other specified abnormal findings of blood chemistry; I50.42 Chronic combined systolic (congestive) and diastolic (congestive) heart failure; I48.91 Unspecified atrial fibrillation; I48.92 Unspecified atrial flutter; K76.0 Fatty (change of) liver, not elsewhere classified
CPT/HCPCS: 36415; 80048; 80076; 84153; 84439; 84443; 85027; G0103

== ENCOUNTER 2024-07-11 07:36 | Outpatient (CLI) | payer MEDICARE, SELFPAY ==
--- OUTSIDE RECORDS SUMMARY | 2024-07-11 07:42 | XMS_ITS | Encounter Summary ---
Author Organization [facility] Address [address] [place] [address] Phone Care Team Providers Care Professor Of Communication And Writing Name Role Phone Louis Hewitt MD Primary Care Provider [phone] Margarita Stoner RN Unavailable [phone] Encounter Details Date Type Department Care Team (Late st Contact Info) Description 07/18/2023 Orders Only [facility] Scanning, Provider Social History Tobacco Use Types Packs/Day Years Used Date Smoking Tobacco: Never Smokeless Tobacco: Never Sex and Gender Information Value Date Recorded Sex Assigned at Not on file Legal Sex Male 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
--- OUTSIDE RECORDS SUMMARY | 2024-07-11 07:42 | XMS_ITS | Continuity of Care Document ---
Author Organization [facility] Address [address] [place] [address] Phone Care Team Providers Care Etl Analyst Name Role Phone Sandra Vazquez Unavailable Unavailable Advance Directives Directive Yes / No Effective Date File Name No Information Encounters Encounter Description Practice Location Reason(s) For Visit Diagnoses Date Provider Providers Copied on Encounter [facility], [address], [place], [place], [id number], [place] tel:[phone] [facility] No Information [phone] Taylor Flores. [address] , [address], [place], [address], [place]. tel:[phone] Family History Family Member Type Diagnosis Age At Onset No Information Payers Payer name Insurance type Covered alliance party ID Authoriza tion(s) Medicaid [facility] [id number] Social History Type Description Quantity Date Captured [...]
--- OUTSIDE RECORDS SUMMARY | 2024-07-11 07:42 | XMS_ITS | Clinical Summary ---
Author Organization [facility] Address [address] [place] [address] Care Team Providers Care Figure Skater Name Role Phone Louis Hewitt MD Primary Care Provider [phone] Allergies Active Allergy Reactions Criticality Noted Date [...] Care Team Description 07/04/2024 SHOP/CHAP Initial Outreach [facility] [address] [place] [address] Margarita Stoner RN 07/02/2024 SHOP/CHAP Initial Outreach [facility] [address] [place] [address] Margarita Stoner RN 07/01/2024 SHOP/CHAP Initial Outreach [facility] [address] [place] [address] Margarita Stoner RN 07/01/2024 SHOP/CHAP Initial Eligibility Review [facility] [address] [place] [address] Margarita Stoner RN 06/28/2024 3:09 AM CDT - 06/30/2024 3:14 PM CDT Hospital Encounter [facility] 1 [place] [address] John Spicer MD Liang, MD Addy Stern, [...] on file 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 Gender Identity Not on file Sexual Orientation [...] BLOOD ORDERABLES Final Result Performing Organization Address [facility] de Phone Number [facility] [place] [address] * (ABNORMAL) Protime-INR (06/29/2024 10:32 PM CDT) PT 14.4(H) 9.7 - 13.0 sec INR 1.33(H) 0.90 - 1.20 [facility] Comment: Interpretive data Oral anticoagulant therapeutic ranges: Venous thromboembolism prophylaxis or treatment: 2.0-3.0 CARDIOLOGY Standard range: 2.0-3.0 High-intensity range: 2.5-3.5 Refer to indication-specific guidelines for appropriate target ranges for prosthetic heart valve replacement. Current interpretive data was last revised on 2019. Blood 06/29/2024 10:3 2 PM CDT 06/29/2024 11:28 PM CDT Samantha Obrien MD LAB BLOOD ORDERABLES Final Result Performing Organization Address [facility] [place] [address] * Hepatitis panel, acute Blood (06/29/2024 11:13 AM CDT) Hep A IgM Nonreactive Nonreactive Hep B core IgM Nonreactive Nonreactive [facility] Hep C Ab Nonreactive Nonreactive [facility] Comment:Antibodies to HCV no t detected. Does NOT exclude the possibility of recent exposure to HCV. Current interpretive data was last revised on 21 HepBsAg Nonreactive Nonreactive [facility] Blood 06/29/2024 11:1 3 AM CDT 06/29/2024 12:25 PM CDT Samantha Obrien MD LAB MICROBIOLOGY - GENERAL ORDERABLES Final Result Performing Organization Address [facility] [place] [address] * HIV 1/2 Antibody plus p24 Antigen Blood (06/28/2024 11:08 PM CDT) [facility] HIV 1/2 ab + p24 ag Nonreactive Nonreactive Comment:Nonreactive for HIV- 1 antigen and HIV-1/HIV-2 antibodies. No laboratory evidence of HIV infection. If acute HIV infection is suspected, consider testing for HIV-1 RNA. Current interpretive data was last revised on 21. Blood 06/28/2024 11:0 8 PM CDT 06/28/2024 11:57 PM CDT Result [facility] Sayda Davila MD PhD LAB MICROBIOLOGY - GENERAL ORDERABLES Final Result Performing Organization Address [facility] [place] [address] * Methylmalonic acid, serum (06/28/2024 11:08 PM CDT) [facility] MMA 0.29 <=0.40 nmol/mL [facility] Comment: ADDITIONAL INFORMATION This test was developed and its performance characteristics determined by [facility] in a manner consistent with CLIA requirements. This test has not been cleared or approved by the U.S. Food and Drug Administration. Test Performed by: [facility] - [address] [address] Resin Filterer: Savage Thomas Ph.D.; CLIA# [id number] Blood 06/28/2024 11:0 8 PM CDT 06/28/2024 11:55 PM CDT Result [facility] Sayda Davila MD PhD LAB BLOOD ORDERABLES Final Result Performing Organization Address City/[facility]/ZIP Co de Phone Number [facility] [place] [address] [facility] ref [facility] * Homocysteine (06/28/2024 11:08 PM CDT) Homocysteine 11.3 0.0 - 15.0 mcmol/L Blood 06/28/2024 11:0 8 PM CDT 06/28/2024 11:55 PM CDT Sayda Davila MD PhD LAB BLOOD ORDERABLES Final Result Performing Organization Address [facility] [place] [address] * Folate (06/28/2024 11:08 PM CDT) Folic acid 15.4 >=5.0 ng/mL Blood 06/28/2024 11:0 8 PM CDT 06/28/2024 11:56 PM CDT Sayda Davila MD PhD LAB BLOOD ORDERABLES Final Result Performing Organization Address [facility] Co de Phone Number [facility] [place] [address] * Ammonia (06/28/2024 3:17 PM CDT) Ammonia 25 <=50 mcmol/L Blood 06/28/2024 3:17 PM CDT 06/28/2024 3:23 PM CDT Miguel Ángel Montanez MD LAB BLOOD ORDERABLES Final Result Performing Organization Address City/[facility]/ZIP Co de Phone Number [facility] [place] [address] * RPR Blood (06/28/2024 2:01 PM CDT) RPR Nonreactive Nonreactive Blood 06/28/2024 2:01 PM CDT 06/28/2024 2:24 PM CDT Miguel Ángel Montanez MD LAB MICROBIOLOGY - GE NERAL ORDERABLES Final Result Performing Organization Address [facility] de Phone Number [facility] [place] [address] * Vitamin B12 (06/28/2024 2:01 PM CDT) Pathologist [facility] Vitamin B12 413 230 - 1,250 pg/mL Blood 06/28/2024 2:01 PM CDT 06/28/2024 2:24 PM CDT Miguel Ángel Montanez MD LAB BLOOD ORDERABLES Final Result Performing Organization Address [facility] de Phone Number [facility] [place] [address] * ECG 12-LEAD (06/28/2024 12:53 PM CDT) Narrative [facility] - 06/28/2024 12:53 PM CDT Miguel Ángel [...] the ED Miguel Ángel Montanez MD 06/28/24 2096 us Miguel Ángel Montanez MD ECG ORDERABLES Final Result [facility] * Troponin I high-sensitivity 4-hour (06/28/2024 8:15 AM CDT) Trop I hs 5 <=35 ng/L Comment: Interpretive Data For further hscTnI resources including the diagnostic algorithm and an aid in interpretation, copy and paste this link: https://bjhlab.testcatalog.org/show/hsTrop-[email or web address] Current Interpretive Data last revised 2019. Trop I hs delta 0 ng/L [facility] Trop I hs interp Insignificant [facility] Blood 06/28/2024 8:15 AM CDT 06/28/2024 8:38 AM CDT us Toni Ornelas MD LAB BLOOD ORDERABLES Final Result [facility] [place] [address] * CT Head WO Contrast (06/28/2024 6:03 AM CDT) Anatomical Region Laterality Modality Head and Neck N/A Computed Tomogra phy 06/28/2024 6:32 AM CDT Impressions 06/28/2024 8:34 AM CDT No acute intracranial process. Dictated by: Doolres Ya MD The radiology attending physician has [...] Ornelas MD LAB BLOOD ORDERABLES Final Result [facility] [place] [address] * ECG 12-LEAD (06/28/2024 5:40 AM CDT) Narrative [facility] - 06/28/2024 5:40 AM CDT John Spicer [...] Interpretation: non-specific John Spicer MD 06/28/24 0541 us John Spicer MD ECG ORDERABLES Final Res ult Performing Organization Address City/[facility]/ZIP Co de Phone Number [facility] * Urinalysis reflex to microscopic and culture Urine (06/28/2024 5:32 AM CDT) [facility] Signature Color, ur Straw Yellow Clarity, ur Clear Clear [facility] Specific gravity, ur 1.021 1.003 - 1.030 [facility] pH, urine 5.5 [facility] Comment: Interpretive Data U rine pH is affected by diet, medications, systemic acid-base disturbances, and renal tubular function. pH may affect urinary stone formation. For example, urine pH below 6.0 may help reduce the tendency for calcium phosphate stones and pH greater than 6.0 may reduce the tendency for uric acid stone formation. Source: [facility] ClasesD Current Interpretive Data was last revised on 2017 Protein, ur ql Negative Negative [facility] Glucose, ur ql Negative Negative [facility] Ketones, ur Negative Negative [facility] Bilirubin, ur Negative Negative [facility] Blood, ur Negative Negative [facility] Urobilinogen, ur <2.0 <2.0 mg/dL [facility] Nitrite, ur Negative Negative [facility] Leukocyte esterase, ur Negative Negative [facility] UA reflex comment Reflex conditions for microscopic UA and culture not met. [facility] Urine 06/28/2024 5:32 AM CDT 06/28/2024 5:43 AM CDT us John Spicer MD LAB MICROBIOLOGY - GENERA L ORDERABLES Final Result [facility] [place] [address] * (ABNORMAL) Drugs of Abuse Screen, Urine [...] 2022. Barbiturates, ur Not Detected CutOff 200ng/mL [facility] Comment: Interpretive Data - Barbiturates: Samples containing greater than 200 ng/mL secobarbital or other cross-reacting barbiturate compounds are reported as positive. False positive and false negative results are possible. Confirmatory testing required for definitive results. Current Interpretive Data was last reviewed 2022. Benzodiazepines, ur Screen Positive, presumptive (A) CutOff 100ng/mL [facility] Comment: Interpretive Data - Benzodiazepines: Samples containing greater than 100 ng/mL nordiazepam or other cross-reacting compounds are reported as positive. False positive and false negative results are possible. Confirmatory testing required for definitive results. Current Interpretive Data was last reviewed 2022. Cannabinoids, ur Screen Positive, presumptive (A) CutOff 50 ng/mL [facility] Comment: Interpretive Data - Cannabinoids: Samples containing greater than 50 ng/mL delta-9 THC -COOH or other cross- reacting compounds are reported as positive. False positive and false negative results are possible. Confirmatory testing required for definitive results. Current Interpretive Data was last reviewed 2022. Cocaine, ur Not Detected CutOff 150ng/mL [facility] Comment: Interpretive Data - Cocaine: Samples containing greater than 150 ng/mL benzoylecgonine or other cross- reacting compounds are reported as positive. False positive and false negative results are possible. Confirmatory testing required for definitive results. Current Interpretive Data was last reviewed 2022. Fentanyl, Ur Not Detected CutOff 5 ng/mL [facility] Comment: Interpretive Data - Fentanyl: Samples containing greater than 5 ng/mL norfentanyl, fentanyl, or other cross-reacting fentanyl compounds are reported as positive. False positive and false negative results are possible. Confirmatory testing required for definitive results. Current Interpretive Data was last reviewed 2023. Methadone, ur Not Detected CutOff 300ng/mL [facility] Comment: Interpretive Data - Methadone: Samples containing greater than 300 ng/mL d,l-methadone or other cross-reacting compounds are reported as positive. False positive and false negative results are possible. Confirmatory testing required for definitive results. Current Interpretive Data was last reviewed 2022. Opiates, ur Not Detected CutOff 300ng/mL [facility] Comment: Interpretive Data - Opiates: Samples containing greater than 300 ng/mL morphine or other cross-reacting compounds are reported as positive. False positive and false negative results are possible. Confirmatory testing required for definitive results. Current Interpretive Data was last reviewed 2022. Oxycodone, ur Not Detected CutOff 100ng/mL [facility] Comment: Interpretive Data - Oxycodone: Samples containing greater than 100 ng/mL oxycodone or other cross-reacting compounds are reported as positive. False positive and false negative results are possible. Confirmatory testing required for definitive results. Current Interpretive Data was last reviewed 2022. Phencyclidine, ur Not Detected CutOff 25 ng/mL [facility] Comment: Interpretive Data - Phencyclidine: Samples containing greater than 25 ng/mL phencyclidine or other cross-reacting compounds are reported as positive. False positive and false negative results are possible. Confirmatory testing required for definitive results. Current Interpretive Data was last reviewed 2022. Urine Creatinine 122 mg/dL [facility] Comment: Interpretive Data Urine Creatinine: < 10 mg/dL is extremely dilute = or > 10 but < 20 mg/dL is dilute = or > 20 mg/dL is normal Current Interpretive Data was last revised on 2017. Urine 06/28/2024 5:32 AM CDT 06/28/2024 5:50 AM CDT Narrative [facility] - 06/28/2024 6:22 AM CDT Drug of Abuse screening is performed by immunoassay for medical purposes only. This is not to be used for Pain Management purposes. us John Spicer MD LAB URINE ORDERABLES Grace flores Result [facility] [place] [address] * Troponin I high-sensitivity series (baseline, 2hr, [...] MD LAB BLOOD ORDERABLES Final Result [facility] [place] [address] * eGFR (06/28/2024 4:09 AM CDT) eGFR [...] ORDERABLES Grace l Result Performing Organization Address [facility] Co de Phone Number [facility] [place] [address] * Thyroid Function [place] (06/28/2024 4:09 AM CDT) Pathologist [facility] TSH 2.04 0.30 - 4.20 mcIUnit/mL Blood 06/28/2024 4:09 AM CDT 06/28/2024 4:09 AM CDT John Spicer MD LAB BLOOD ORDERABLES Grace l Result Performing Organization Address [facility] de Phone Number [facility] [place] [address] * Ethanol (06/28/2024 4:09 AM CDT) Pathologist [facility] Ethanol <10 <=10 mg/dL Comment: Interpretive Data Legal limit of intoxication > or = 80 mg/dL Levels > or = 400 mg/dL are potentially TOXIC. Current interpretive data was last revised on 2018. Blood 06/28/2024 4:09 AM CDT 06/28/2024 4:09 AM CDT Miguel Ángel Montanez MD LAB BLOOD ORDERABLES Final Result Performing Organization Address [facility] Co de Phone Number [facility] [place] [address] * (ABNORMAL) Comprehensive metabolic panel (06/28/2024 4:09 AM CDT) Pathologist [facility] Sodium 143 135 - 145 mmol/L Potassium, pl 4.0 3.3 - 4.9 mmol/L [facility] Chloride 107 97 - 110 mmol/L [facility] CO2 27 22 - 32 mmol/L [facility] Anion gap 9 2 - 15 mmol/L [facility] BUN 24 6 - 25 mg/dL [facility] Creatinine 1.22 0.80 - 1.30 mg/dL [facility] Glucose 114 70 - 199 mg/dL [facility] Comment: Interpretive Data Fasting glucose >/= 126 [...] 2022. Calcium 9.4 8.5 - 10.3 mg/dL [facility] Bilirubin, total 0.9 0.1 - 1.2 mg/dL [facility] Protein, pl 6.2(L) 6.5 - 8.5 g/dL [facility] Albumin 3.9 3.5 - 5.0 g/dL [facility] Alk phos 58 40 - 130 Units/L [facility] ALT 61(H) 7 - 55 Units/L [facility] AST 33 10 - 50 Units/L [facility] Blood 06/28/2024 4:09 AM CDT 06/28/2024 4:09 AM CDT us John Spicer MD LAB BLOOD ORDERABLES Grace l Result [facility] [place] [address] * XR Chest Pa Lateral 2 Vw [...] K/cumm [facility] Neutrophil pct 68.2 % [facility] Comment: Interpretive Data Percent cell count reference ranges are not reported, since discordance with absolute values may lead to misinterpretation of CBC data. Current Interpretive Data was last revised on 2017. Imm gran pct 0.3 % [facility] Comment: Interpretive Data Percent cell count reference ranges are not reported, since discordance with absolute values may lead to misinterpretation of CBC data. Current Interpretive Data was last revised on 2017. Lymphocyte pct 24.1 % [facility] Comment: Interpretive Data Percent cell count reference ranges are not reported, since discordance with absolute values may lead to misinterpretation of CBC data. Current Interpretive Data was last revised on 2017. Monocyte pct 6.7 % [facility] Comment: Interpretive Data Percent cell count reference ranges are not reported, since discordance with absolute values may lead to misinterpretation of CBC data. Current Interpretive Data was last revised on 2017. Eosinophil pct 0.1 % [facility] Comment: Interpretive Data Percent cell count reference ranges are not reported, since discordance with absolute values may lead to misinterpretation of CBC data. Current Interpretive Data was last revised on 2017. Basophil pct 0.6 % [facility] Comment: Interpretive Data Percent cell count reference ranges are not reported, since discordance with absolute values may lead to misinterpretation of CBC data. Current Interpretive Data was last revised on 2017. Blood 06/28/2024 3:21 AM CDT 06/28/2024 4:08 AM CDT us John Spicer MD LAB BLOOD ORDERABLES Grace l Result [facility] [place] [address] * (ABNORMAL) CBC with auto differential (06/28/2024 3:21 AM CDT) WBC 7.01 3.80 - 9.90 K/cumm Hgb 14.0 13.0 - 17.5 g/dL [facility] Hct 40.8 38.9 - 50.3 % [facility] Plt 210 150 - 400 K/cumm [facility] MPV 8.8(L) 9.1 - 12.3 fL [facility] RBC 4.39 4.30 - 5.80 M/cumm [facility] MCV 92.9 81.3 - 96.4 fL [facility] MCH 31.9 27.1 - 33.3 pg [facility] MCHC 34.3 32.3 - 35.7 g/dL [facility] RDW CV 13.5 11.1 - 14.9 % [facility] 45.7 35.7 - 48.1 fL [facility] NRBC abs 0.00 0.00 - 0.01 K/cumm [facility] Blood 06/28/2024 3:21 AM CDT 06/28/2024 4:08 AM CDT us John Spicer MD LAB BLOOD ORDERABLES Grace flores Result Performing Organization Address City/State/[facility] Co de Phone Number [facility] [place] [address] from Last 3 Months Insurance [facility] MEDIC[facility] ADVANTAGE MEDICARE IDPA MANAGED MEDICARE GENERIC RISK OTHER [facility] MEDICARE ADVANTAGE [facility] MED[facility] Advance Directives For more information, please contact: [phone] * Full Code (Latest Code Status on File) Date Activated Date Inactivated Comments 06/28/2024 9:57 PM 06/30/2024 7:14 PM Care Teams Figure Skater Relationship Specialty Start Date End Date Louis Hewitt MD PCP - General Family Medicine 01/12/20
--- OUTSIDE RECORDS SUMMARY | 2024-07-11 07:42 | XMS_ITS | Encounter Summary ---
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
--- OUTSIDE RECORDS SUMMARY | 2024-07-11 07:42 | XMS_ITS | Referral Summary ---
Author Organization [facility] Address [address] [place] [address] Care Team Providers Care Gasoline Truck Operator Name Role Phone Louis Hewitt MD Primary Care Provider Encounters Date Type Department Care Team Description 07/04/2024 SHOP/CHAP Initial Outreach [facility] OP CASE MANAGEMENT [address] [place] [address] Margarita Stoner, RAFAELA 07/02/2024 SHOP/CHAP Initial Outreach [facility] OP CASE MANAGEMENT [address] [place] [address] Margarita Stoner, RAFAELA 07/01/2024 SHOP/CHAP Initial Outreach [facility] OP CASE MANAGEMENT [address] [place] [address] Margarita Stoner, RAFAELA 07/01/2024 SHOP/CHAP Initial Eligibility Review [facility] OP CASE MANAGEMENT [address] [place] [address] Margarita Stoner, RAFAELA 06/28/2024 3:09 AM CDT - 06/30/2024 3:14 PM CDT Hospital Encounter [address] [address] John Spicer MD Liang, MD Addy Stern, [...] on file 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 Gender Identity Not on file Sexual Orientation [...] BLOOD ORDERABLES Final Result Performing Organization Address City/State/[facility] Co de Phone Number [facility] Department [place] [address] * (ABNORMAL) Protime-INR (06/29/2024 10:32 PM CDT) PT 14.4(H) 9.7 - 13.0 sec INR 1.33(H) 0.90 - 1.20 [facility] Comment: Interpretive data Oral anticoagulant therapeutic ranges: Venous thromboembolism prophylaxis or treatment: 2.0-3.0 CARDIOLOGY Standard range: 2.0-3.0 High-intensity range: 2.5-3.5 Refer to indication-specific guidelines for appropriate target ranges for prosthetic heart valve replacement. Current interpretive data was last revised on 2019. Blood 06/29/2024 10:3 2 PM CDT 06/29/2024 11:28 PM CDT Samantha Obrien MD LAB BLOOD ORDERABLES Final Result Performing Organization Address [facility] [place] [address] * Hepatitis panel, acute Blood (06/29/2024 11:13 AM CDT) Hep A IgM Nonreactive Nonreactive Hep B core IgM Nonreactive Nonreactive [facility] Hep C Ab Nonreactive Nonreactive [facility] Comment:Antibodies to HCV no t detected. Does NOT exclude the possibility of recent exposure to HCV. Current interpretive data was last revised on 21 HepBsAg Nonreactive Nonreactive [facility] Blood 06/29/2024 11:1 3 AM CDT 06/29/2024 12:25 PM CDT Samantha Obrien MD LAB MICROBIOLOGY - GENERAL ORDERABLES Final Result Performing Organization Address [facility] [place] [address] * HIV 1/2 Antibody plus p24 Antigen [...] [facility]/ZIP Co de Phone Number [facility] [place] [address] * Methylmalonic acid, serum (06/28/2024 11:08 PM CDT) Pathologist [facility] MMA 0.29 <=0.40 nmol/mL [facility] Comment: ADDITIONAL INFORMATION This test was developed and its performance characteristics determined by [facility] in a manner consistent with CLIA requirements. This test has not been cleared or approved by the U.S. Food and Drug Administration. Test Performed by: [address] [address] [employer]mware Architect: Savage Thomas Ph.D.; CLIA# [id number] Blood 06/28/2024 11:0 8 PM CDT 06/28/2024 11:55 PM CDT Sayda Davila MD PhD LAB BLOOD ORDERABLES Final Result Performing Organization Address City/[facility] [place] [address] [facility] * Homocysteine (06/28/2024 11:08 PM CDT) Pathologist [facility] Homocysteine 11.3 0.0 - 15.0 mcmol/L Blood 06/28/2024 11:0 8 PM CDT 06/28/2024 11:55 PM CDT Sayda Davila MD PhD LAB BLOOD ORDERABLES Final Result [facility] [place] [address] * Folate (06/28/2024 11:08 PM CDT) Pathologist [facility] Folic acid 15.4 >=5.0 ng/mL Blood 06/28/2024 11:0 8 PM CDT 06/28/2024 11:56 PM CDT Sayda Davila MD PhD LAB BLOOD ORDERABLES Final Result Performing Organization Address [facility]/ZIP Co de Phone Number [facility] Department [place] [address] * Ammonia (06/28/2024 3:17 PM CDT) [facility] Ammonia 25 <=50 mcmol/L Blood 06/28/2024 3:17 PM CDT 06/28/2024 3:23 PM CDT Miguel Ángel Montanez MD LAB BLOOD ORDERABLES Final Result Performing Organization Address [facility] de Phone Number [facility] Department [place] [address] * RPR Blood (06/28/2024 2:01 PM CDT) [facility] RPR Nonreactive Nonreactive Blood 06/28/2024 2:01 PM CDT 06/28/2024 2:24 PM CDT Miguel Ángel Montanez MD LAB MICROBIOLOGY - GE NERAL ORDERABLES Final Result Performing Organization Address [facility] Co de Phone Number [facility] [place] [address] * Vitamin B12 (06/28/2024 2:01 PM CDT) [facility] Vitamin B12 413 230 - 1,250 pg/mL Blood 06/28/2024 2:01 PM CDT 06/28/2024 2:24 PM CDT Miguel Ángel Montanez MD LAB BLOOD ORDERABLES Final Result [facility] Department [place] [address] * ECG 12-LEAD (06/28/2024 12:53 PM CDT) Narrative [facility] - 06/28/2024 12:53 PM CDT Miguel Ángel [...] Montanez MD ECG ORDERABLES Final Result [facility] * Troponin I high-sensitivity 4-hour (06/28/2024 8:15 AM CDT) Trop I hs 5 <=35 ng/L Comment: Interpretive Data For further hscTnI resources including the diagnostic algorithm and an aid in interpretation, copy and paste this link: https://bjhlab.testcatalog.org/show/[email or web address] Current Interpretive Data last revised 2019. Trop I hs delta 0 ng/L [facility] Trop I hs interp Insignificant [facility] Blood 06/28/2024 8:1 5 AM CDT 06/28/2024 8:38 AM CDT us Toni Ornelas MD LAB BLOOD ORDERABLES Final Result [facility] Department [place] [address] * CT Head WO Contrast (06/28/2024 6:03 [...] Trop I hs delta 1 ng/L [facility] Trop I hs interp Insignificant [facility] Blood 06/28/2024 5:55 AM CDT 06/28/2024 6:15 AM CDT us Toni Ornelas MD LAB BLOOD ORDERABLES Final Result [facility] Department [place] [address] * ECG 12-LEAD (06/28/2024 5:40 AM CDT) Narrative [facility] - 06/28/2024 5:40 AM CDT John Spicer MD 06/28/2024 5:41 AM ECG 12 lead Date/Time: 06/28/2024 5:40 AM Performed by: John Spiecr MD Authorized by: John Spicer MD Quality: [...] MD ECG ORDERABLES Final Res ult [facility] * Urinalysis reflex to microscopic and culture Urine (06/28/2024 5:32 AM CDT) Color, ur Straw Yellow Clarity, ur Clear Clear [facility] Specific gravity, ur 1.021 1.003 - 1.030 [facility] pH, urine 5.5 [facility] Comment: Interpretive Data U rine pH is affected by diet, medications, systemic acid-base disturbances, and renal tubular function. pH may affect urinary stone formation. For example, urine pH below 6.0 may help reduce the tendency for calcium phosphate stones and pH greater than 6.0 may reduce the tendency for uric acid stone formation. Source: [facility] Current Interpretive Data was last revised on 2017 Protein, ur ql Negative Negative [facility] Glucose, ur ql Negative Negative [facility] Ketones, ur Negative Negative [facility] Bilirubin, ur Negative Negative [facility] Blood, ur Negative Negative [facility] Urobilinogen, ur <2.0 <2.0 mg/dL [facility] Nitrite, ur Negative Negative [facility] Leukocyte esterase, ur Negative Negative [facility] UA reflex comment Reflex conditions for microscopic UA and culture not met. [facility] Urine 06/28/2024 5:32 AM CDT 06/28/2024 5:43 AM CDT us John Spicer MD LAB MICROBIOLOGY - GENERA L ORDERABLES Final Result [facility] Department [place] [address] * (ABNORMAL) Drugs of Abuse Screen, Urine [...] 2022. Barbiturates, ur Not Detected CutOff 200ng/mL [facility] Comment: Interpretive Data - Barbiturates: Samples containing greater than 200 ng/mL secobarbital or other cross-reacting barbiturate compounds are reported as positive. False positive and false negative results are possible. Confirmatory testing required for definitive results. Current Interpretive Data was last reviewed 2022. Benzodiazepines, ur Screen Positive, presumptive (A) CutOff 100ng/mL [facility] Comment: Interpretive Data - Benzodiazepines: Samples containing greater than 100 ng/mL nordiazepam or other cross-reacting compounds are reported as positive. False positive and false negative results are possible. Confirmatory testing required for definitive results. Current Interpretive Data was last reviewed 2022. Cannabinoids, ur Screen Positive, presumptive (A) CutOff 50 ng/mL [facility] Comment: Interpretive Data - Cannabinoids: Samples containing greater than 50 ng/mL delta-9 THC -COOH or other cross- reacting compounds are reported as positive. False positive and false negative results are possible. Confirmatory testing required for definitive results. Current Interpretive Data was last reviewed 2022. Cocaine, ur Not Detected CutOff 150ng/mL [facility] Comment: Interpretive Data - Cocaine: Samples containing greater than 150 ng/mL benzoylecgonine or other cross- reacting compounds are reported as positive. False positive and false negative results are possible. Confirmatory testing required for definitive results. Current Interpretive Data was last reviewed 2022. Fentanyl, Ur Not Detected CutOff 5 ng/mL [facility] Comment: Interpretive Data - Fentanyl: Samples containing greater than 5 ng/mL norfentanyl, fentanyl, or other cross-reacting fentanyl compounds are reported as positive. False positive and false negative results are possible. Confirmatory testing required for definitive results. Current Interpretive Data was last reviewed 2023. Methadone, ur Not Detected CutOff 300ng/mL [facility] Comment: Interpretive Data - Methadone: Samples containing greater than 300 ng/mL d,l-methadone or other cross-reacting compounds are reported as positive. False positive and false negative results are possible. Confirmatory testing required for definitive results. Current Interpretive Data was last reviewed 2022. Opiates, ur Not Detected CutOff 300ng/mL [facility] Comment: Interpretive Data - Opiates: Samples containing greater than 300 ng/mL morphine or other cross-reacting compounds are reported as positive. False positive and false negative results are possible. Confirmatory testing required for definitive results. Current Interpretive Data was last reviewed 2022. Oxycodone, ur Not Detected CutOff 100ng/mL [facility] Comment: Interpretive Data - Oxycodone: Samples containing greater than 100 ng/mL oxycodone or other cross-reacting compounds are reported as positive. False positive and false negative results are possible. Confirmatory testing required for definitive results. Current Interpretive Data was last reviewed 2022. Phencyclidine, ur Not Detected CutOff 25 ng/mL [facility] Comment: Interpretive Data - Phencyclidine: Samples containing greater than 25 ng/mL phencyclidine or other cross-reacting compounds are reported as positive. False positive and false negative results are possible. Confirmatory testing required for definitive results. Current Interpretive Data was last reviewed 2022. Urine Creatinine 122 mg/dL [facility] Comment: Interpretive Data Urine Creatinine: < 10 mg/dL is extremely dilute = or > 10 but < 20 mg/dL is dilute = or > 20 mg/dL is normal Current Interpretive Data was last revised on 2017. Urine 06/28/2024 5:32 AM CDT 06/28/2024 5:50 AM CDT Narrative [facility] - 06/28/2024 6:22 AM CDT Drug of Abuse screening is performed by immunoassay for medical purposes only. This is not to be used for Pain Management purposes. John Spicer MD LAB URINE ORDERABLES Grace l Result Performing Organization Address City/[facility] Co de Phone Number [facility] [place] [address] * Troponin I high-sensitivity series (baseline, 2hr, [...] BLOOD ORDERABLES Final Result Performing Organization Address [facility] Co de Phone Number [facility] Department [place] [address] * eGFR (06/28/2024 4:09 AM CDT) eGFR [...] [facility]/[place] [address] * Thyroid Function Story (06/28/2024 4:09 AM CDT) TSH 2.04 0.30 - 4.20 mcIUnit/mL Blood 06/28/2024 4:09 AM CDT 06/28/2024 4:09 AM CDT us John Spicer MD LAB BLOOD ORDERABLES Grace l Result [facility] [place] [address] * Ethanol (06/28/2024 4:09 AM CDT) Ethanol <10 <=10 mg/dL Comment: Interpretive Data Legal limit of intoxication > or = 80 mg/dL Levels > or = 400 mg/dL are potentially TOXIC. Current interpretive data was last revised on 2018. Blood 06/28/2024 4:09 AM CDT 06/28/2024 4:09 AM CDT us Miguel Ángel Montanez MD LAB BLOOD ORDERABLES Final Result [facility] [place] [address] * (ABNORMAL) Comprehensive metabolic panel (06/28/2024 4:09 AM CDT) Pathologist [facility] Sodium 143 135 - 145 mmol/L Potassium, pl 4.0 3.3 - 4.9 mmol/L [facility] Chloride 107 97 - 110 mmol/L [facility] CO2 27 22 - 32 mmol/L [facility] Anion gap 9 2 - 15 mmol/L [facility] BUN 24 6 - 25 mg/dL [facility] Creatinine 1.22 0.80 - 1.30 mg/dL [facility] Glucose 114 70 - 199 mg/dL [facility] Comment: Interpretive Data Fasting glucose >/= [...] 2022. Calcium 9.4 8.5 - 10.3 mg/dL [facility] Bilirubin, total 0.9 0.1 - 1.2 mg/dL [facility] Protein, pl 6.2(L) 6.5 - 8.5 g/dL [facility] Albumin 3.9 3.5 - 5.0 g/dL [facility] Alk phos 58 40 - 130 Units/L [facility] ALT 61(H) 7 - 55 Units/L [facility] AST 33 10 - 50 Units/L [facility] Blood 06/28/2024 4:09 AM CDT 06/28/2024 4:09 AM CDT us John Spicer MD LAB BLOOD ORDERABLES Grace l Result [facility] Department [place] [address] * XR Chest Pa Lateral 2 Vw [...] 2017. Imm gran pct 0.3 % [facility] Comment: Interpretive Data Percent cell [...] [facility]/ZIP Co de Phone Number [facility] [place] [address] * (ABNORMAL) CBC with auto differential (06/28/2024 3:21 AM CDT) Pathologist [facility] WBC 7.01 3.80 - 9.90 K/cumm Hgb 14.0 13.0 - 17.5 g/dL [facility] Hct 40.8 38.9 - 50.3 % [facility] Plt 210 150 - 400 K/cumm [facility] MPV 8.8(L) 9.1 - 12.3 fL [facility] RBC 4.39 4.30 - 5.80 M/cumm [facility] MCV 92.9 81.3 - 96.4 fL [facility] MCH 31.9 27.1 - 33.3 pg [facility] MCHC 34.3 32.3 - 35.7 g/dL [facility] RDW CV 13.5 11.1 - 14.9 % [facility] RDW SD 45.7 35.7 - 48.1 fL [facility] NRBC abs 0.00 0.00 - 0.01 K/cumm [facility] Blood 06/28/2024 3:21 AM CDT 06/28/2024 4:08 AM CDT John Spicer MD LAB BLOOD ORDERABLES Grace l Result Performing Organization Address City/[facility]/ZIP Co de Phone Number [facility] [place] [address] from Last 3 Months Insurance [facility] MEDICARE [facility] Address: [address] [address] [place] [address] MEDICARE [facility] Address: [address] [address] [place] [address] [employer] MANAGED MEDICARE GENERIC RISK OTHER [facility] MEDICARE ADVANTAGE [facility] MEDIC[facility] ADVANTAGE Advance Directives For more information, please contact: [phone] * Full Code (Latest Code Status on File) Date Activated Date Inactivated Comments 06/28/2024 9:57 PM 06/30/2024 7:14 PM Care Teams Gasoline Truck Operator Relationship Specialty Start Date End Date Louis Hewitt MD PCP - General Family Medicine 01/12/20
--- OUTSIDE RECORDS SUMMARY | 2024-07-11 07:42 | XMS_ITS | Encounter Summary ---
Author Organization [facility] Address [address] [place] [address] Phone Care Team Providers Care Orthotic Fitter Name Role Phone Louis Hewitt MD Primary Care Provider [phone] Margarita Stoner RN Unavailable [phone] Encounter Details Date Type Department Care Team (Late st Contact Info) Description 05/08/2023 Orders Only [facility] Scanning, Provider Social History Tobacco Use Types Packs/Day Years Used Date Smoking Tobacco: Never Smokeless Tobacco: Never Sex and Gender Information Value Date Recorded Sex Assigned at Not on file 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
--- OUTSIDE RECORDS SUMMARY | 2024-07-11 07:42 | XMS_ITS | Clinical Summary ---
Author Organization [email or web address] Address [address] [place] [address] Care Team Providers Care Negative Cleaner Name Role Phone Louis Hewitt MD Primary Care Provider [phone] Source Comments [email or web address],non-owned Affiliates and Associated Physician Practices is amultiple site organization consisting of ambulatory clinics and hospital sitesin [place], [place], [place] and [place]. This disclosure is being madepursuant to the Care Everywhere program and may not contain all information available regarding this patient. 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
--- OUTSIDE RECORDS SUMMARY | 2024-07-11 07:42 | XMS_ITS | CONTINUITY OF CARE DOCUMENT ---
Author Name natan yeelopez Address Unknown Organization [facility] Address [address] [place] [address] Phone [phone] Care Team Providers Care Mirror Finishing Machine Operator Name Role Phone Obey SORTO, Gretchen Unavailable [phone] BRITTNEY SORTO, ENOC F Unavailable BRITTNEY SORTO, ENOC F Unavailable PROBLEMS Condition Status Date Provider Notes Atrial [...] cardiovasc. examination completed - Gretchen Barnhart MD Foot pain, swelling, right active Gretchen ames MD Hypotension active Gretchen Barnhart MD Hx of Hernia active Gretchen Barnhart MD Chronic back pain, sciatica active Gretchen hollins MD ENCOUNTERS Date Type Provider Location Encounter Diag nosis - In-person encounter Office Visit Gretchen Barnhart MD [place] [facility] - In-person encounter Office Visit Gretchen Barnhart MD [place] [facility] Hypotension - In-person encounter Office Visit Gretchen Barnhart MD [place] [facility] Foot pain, swelling, right - In-person encounter Office Visit Gretchen Barnhart MD [place] [facility] ObesityHx of Hernia - In-person encounter Office Visit Gretchen Barnhart MD [place] [facility] - In-person encounter Office Visit Gretchen Barnhart MD [place] [facility] Shortness of breath--echo ef 52%, mild lvh, severe R and LAE, mild mr, AD ca on lad on ct scan, nl stress nuc hronic back pain, sciatica - In-person encounter Office Visit Gretchen Barnhart MD [place] [facility] Atrial Fibrillation, s/p CV on Eliquis , has a l peristant superior vena cavaCurrent use of Warfarin - INR per [facility] cardiovasc. examination - In-person encounter Office Visit Erica Anderson MD [place] [facility] - In-person encounter Office Visit Erica Anderson MD [place] [facility] Atrial Fibrillation, s/p CV on Eliquis , has a l peristant superior vena cava - In-person encounter Office Visit Gretchen Barnhart MD [place] [facility] - In-person encounter Office Visit Erica Anderson MD [place] [facility] - In-person encounter Office Visit Erica Anderson MD [place] [facility] - In-person encounter Office Visit Erica Anderson MD [place] [facility] - In-person encounter Office Visit Erica Anderson MD [facility] - In-person encounter Office Visit Erica Anderson MD [facility] - In-person encounter Office Visit Erica Anderson MD [place] [facility] - In-person encounter Office Visit Brian Dunn MD [place] [facility] - In-person encounter Office Visit Gretchen Barnhart MD [place] [facility] - In-person encounter Office Visit Brian Dunn MD [place] [facility] - In-person encounter Office Visit Brian Dunn MD [place] [facility] Atrial Fibrillation, s/p CV on Eliquis , has a l peristant superior vena cava - In-person encounter Office Visit Brian Dunn MD [place] [facility] Atrial Fibrillation, s/p CV on Eliquis , has a l peristant superior vena cavaSyncope - In-person encounter Office Visit Gretchen Barnhart MD [place] [facility] Atrial Fibrillation, s/p CV on Eliquis , has a l peristant superior vena cavaCAD ca on lad on ct scan, nl stress nuc 11/2021 - In-person encounter Office Visit Gretchen Barnhart MD [place] [facility] Shortness of breath--echo ef 52%, mild [...] [place] oxygen saturation, oximetry 97 % Goldie [place] respiratory rate E&M 12 /min Goldie [place] pulse rate 82 /min Goldie [place] weight E&M 148 [lb_av] Goldie [place] height E&M 66 [in_i] Goldie [place] Body Mass Index (Ratio) 25.82 kg/m2 Justyn Barnhart MD blood pressure, diastolic 71 mm[Hg] Ri [facility] blood pressure, systolic 91 mm[Hg] Liz z [facility] oxygen saturation, oximetry 96 % Yane [place] pulse rate 58 /min [facility] respiratory rate E&M 18 /min Yane Adamson illetom weight E&M 160 [lb_av] [facility] height E&M 66 [in_i] [facility] Body Mass Index (Ratio) 25.82 kg/m2 Justyn Barnhart MD blood pressure, cuff size regular Valentin [facility] blood pressure, diastolic 73 mm[Hg] Valentin et blood pressure, systolic 101 mm[Hg] Payton [facility] pulse rate 59 /min Alin respiratory [...] respiratory rate E&M 16 /min Nay aden [place] blood pressure, cuff size large Michelle gutierres Hernandez height E&M 66 [in_i] Marina Isma palacios Body Mass Index (Ratio) 28.08 kg/m2 Daryl Anderson MD pulse rate 69 /min [facility] blood pressure, diastolic 97 mm[Hg] To nsha Hernandez blood pressure, systolic 138 mm[Hg] Ton [facility] oxygen saturation, oximetry 97 % [facility] Hernandez respiratory rate E&M 16 /min [facility] Hernandez weight E&M 174 [lb_av] Tons Hernandez height E&M 66 [in_i] [facility] Hernandez Body Mass Index (Ratio) 26.50 kg/m2 Daryl Anderson MD blood pressure, diastolic 80 mm[Hg] oJanna Barboza blood pressure, systolic 113 mm[Hg] Marybeth [...] Sanchez blood pressure, diastolic 80 mm[Hg] Da yma [place] blood pressure, systolic 122 mm[Hg] Dac ia [...] Cat [place] weight E&M 187 [lb_av] Cat [place] Body Mass Index (Ratio) 30.50 kg/m2 Justyn Barnahrt MD blood pressure, cuff size regular Tereso [...] Index (Ratio) 30.82 kg/m2 José Miguel pennie [facility] blood pressure, cuff size regular rri [...] Index (Ratio) 29.53 kg/m2 José Miguel casper [facility] blood pressure, resting No Ruiz ty [place] blood pressure, diastolic 72 mm[Hg] Kr isty Lanny blood pressure, systolic 130 mm[Hg] Kri sty Lanny pulse rate 102 /min Cat Lanny respiratory rate E&M 17 /min Cat [place] oxygen saturation, oximetry 97 % Cat Lanny blood pressure, cuff size regular Kr isty [place] weight E&M 183 [lb_av] Cat [place] height E&M 66 [in_i] Cat [place] blood pressure, diastolic 98 mm[Hg] Da mya Celsa blood pressure, systolic 124 mm[Hg] Dac ia Celsa height E&M 66 [in_i] Kalie Celsa height in centimeters E&M 167.64 cm Da mya [place] blood pressure, diastolic 92 mm[Hg] Me leandra Silva blood pressure, systolic 129 mm[Hg] Padma bernstein Silva pulse rate 88 /min Haley Silva oxygen saturation, oximetry 96 % Haley Silva respiratory rate E&M 15 /min Haley Silva Body Mass Index (Ratio) 30.50 kg/m2 Sherlyn barrios [facility] weight E&M 189 [lb_av] Haley Silva blood pressure, diastolic 95 mm[Hg] Me leandra Silva blood pressure, systolic 144 mm[Hg] Padma bernstein Silva pulse rate 84 /min Haley Silva oxygen saturation, oximetry 96 % Haley Silva respiratory rate E&M 15 /min Haley Silva Body Mass Index (Ratio) 31.95 kg/m2 Sherlyn barrios [facility] weight E&M 198 [lb_av] Haley Silva height [...] Kelley RN international normalized ratio (INR) 3.7 [place] Alicia Normal prothrombin time (patient) 44.9 s [place] Alicia coagulation managed by Martin Kelley RN [...] Kelley RN international normalized ratio (INR) 2.7 [place] Alicia Normal prothrombin time (patient) 32.0 s [place] Alicia coagulation managed by Rebecca Mcadams international [...] RN international normalized ratio (INR) 1.3 Sia [place] Normal prothrombin time (patient) 15.9 s Sia [...] four to six hours as needed Haley Sliva alprazolam 1 mg tablet active 1 tablet [...] E&M revi ewed - no changes required [facility] social history E&M S moking History: Ming [...] passive cigarette sm jojo exposure yes Marina Hernadnez smoking status Never smoker Marina Mejía social [...] Payer name Policy type / Coverage type [place] red republican ID [facility] (PPO C-SNP) Medicare [id number] ADVANCE DIRECTIVES Name Date DISCUSSED - NO DECISION MADE TREATMENT PLAN Date Name Performer [id number],S, Cornel Ahmedza i [id number],S, Cornel Ahmedza i [id number],S, Cornel Ahmedza i [id number],S, Cornel Ahmedza i [id number],S, Cornel Ahmedza i [id number],B, Cornel Ahmedza i [id number],S, Cornel Ahmedza i [id number],S, Cornel Ahmedza i [id number],S, Cornel Ahmedza i [id number],S, Cornel Ahmedza i [id number],S, Cornel Ahmedza i [id number],S, Cornel Ahmedza i [id number],S, Cornel Ahmedza i [id number],S, Cornel Ahmedza i [id number],S, Cornel Ahmedza i [id number],S, Cornel Ahmedza i [id number],S, Cornel Ahmedza i [id number],W, Cornel Ahmedza i [id number],S, Cornel Ahmedza i [id number],S, Cornel Ahmedza i [id number],S, Cornel Ahmedza i [id number],S, Cornel Ahmedza i [id number],B, Cornel Ahmedza i [id number],B, Cornel Ahmedza i [id number],W, Cornel Ahmedza i [id number],S, Cornel Ahmedza i [id number],W, Cornel Ahmedza i [id number],S, Cornel Ahmedza i [id number],W, Cornel Ahmedza i Cardiology: H is updated [...] rders: M onitor - Telemetry (Mobile Cardiac) (CPT-14035) Cornel Ahmedzai Cardiology Cornel Ahmedzai Cardiology Cornel Ahmedzai Cardiology Cornel Ahmedzai Cardiology Cornel Ahmedzai Cardiology Conrel Ahmedzai Cardiology Cornel [...] Currently taking care of teresadomingoyuan. 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 W ill defer [...] SR. O rders: 9 9213 LTD. Complex (CPT-53315) M obile Cardiac Tele (CPT-46544) [facility] Follow u p faxed [...] 05/22/16:On Warfarin for Afib. INR monitored by [facility]. Brian Dunn MD EP faxed [...] tablets twice a day Orders: S NOMED-CT: [id number] Current Medications Documented ([id number]) E KG (CPT-39633) M obile Cardiac Tele (CPT-12031) C ardioversion - GC (CPT-35459) T EE - GC (*) Brian Dunn [...] BASIC METABOLIC PANE L W/EGFR DLCO - 54001 FRC - 24671 FVC - 96262 ANGELO - GC Cardioversion - GC Mobile [...] EKG Erica Anderson MD compl eted SNOMED-CT: 414852996499308 Current Medications Documented Erica Anderson MD completed EKG Erica Anderson MD compl eted SNOMED-CT: 996151489146166 Current Medications Documented Erica Anderson MD completed EKG Brian busch MD completed SNOMED-CT: 119732904787331 Current Medications Documented Brian Dunn MD completed SNOMED-CT: 49505858 Physical Exam, Performed: Pulse Exam of Foot Gretchen Barnhart MD completed SNOMED-CT: 801188673946131 Current Medications Documented Gretchen Barnhart MD completed EKKamari Barnhart MD completed EKG ulius Kellee busch MD completed SNOMED-CT: 036887042435278 Current Medications Documented Saulius Mary Joitis completed Brett Barnhart MD completed Protime Brian busch MD completed Brett Barnhart MD completed Brett Barnhart MD completed Brett Barnhart MD completed Brett Barnhart MD completed Brett Barnhart MD completed EKG ulius Kellee busch MD completed SNOMED-CT: 549146841310128 Current Medications Documented Saulius Mona SORTO completed INR Strip Brian busch MD completed INR Strip Gretchen Barnhart MD completed Brett Barnhart MD completed BLOOD COUNT HEMOGLOBIN Saulius Eugenia nascimento MD completed FVC - 63800 ulius Kellee busch MD completed FRC - 60778 ulius Kellee busch MD completed DLCO - 67067 Brian busch MD completed EKG Brian busch MD completed SNOMED-CT: 395690479106533 Current Medications Documented Saulius Mary Joitis completed Brett Barnhart MD completed Brett Barnhart MD completed SNOMED-CT: 20204830 Physical Exam, Performed: Pulse Exam of Foot Gretchen Barnhart MD completed Brett Barnhart MD completed SNOMED-CT: 163686429346976 Current Medications Documented Gretchen Barnhart MD completed [...] Images Dacia Canela MD compl eted SNOMED-CT: 18037720 Physical Exam, Performed: Pulse Exam of Foot Gretchen Barnhart MD completed Brett Barnhart MD completed SNOMED-CT: 234734587492435 Current Medications Documented Gretchen Barnhart MD completed EKG Gretchen Barnhart MD completed Brett Barnhart MD completed Brett Barnhart MD completed Brett Barnhart MD completed
[2024-07-11 08:12] LABS: Glucose 103 mg/dL (65-110); Hemoglobin A1C 5.7 % (<5.7)
== END 2024-07-11 07:37 | disposition home or self-care (01) ==
LOC: ANHLAB 07:37
PROVIDERS: PCP Family Medicine; Visit Provider Family Medicine
DX: R73.09 Other abnormal glucose (principal)
CPT/HCPCS: 36415; 82947; 83036

== ENCOUNTER 2024-07-21 08:51 | Outpatient (CLI) | payer MEDICARE, SELFPAY ==
--- NOTE | ~2024-07-21 | CT_ITS ---
CT of the Abdomen and Pelvis: Indication: Laceration spleen Technique: 2.5 mm axial scans were obtained through the abdomen and pelvis following intravenous adm inistration of 100 cc of Omnipaque 350. Dose reduction technique was used on this scan by utilizing a utomated exposure control and iterative reconstruction technique. The dose-length product (DLP) was 2 64.00 mGy-cm. COMPARISON: 06/15/2024 Findings: Scans through the lung bases are unremarkable. There is mild nonspecific heterogeneity in the inferior right hepatic lobe. The spleen, pancreas, gal lbladder, adrenals and kidneys are within normal limits. No evidence of aortic aneurysm. No lymphad enopathy. No bowel obstruction or bowel wall thickening. There is no evidence to suggest acute appendicitis. Images through the pelvis were performed. Urinary bladder unremarkable. No pelvic mass seen. Trace pe lvic free fluid noted. Impression: No evidence for splenic laceration or perisplenic fluid collection. Mild nonspecific heterogeneity medial right hepatic lobe. Correlate with LFTs. Consider hepatic MR to further assess for underlying hepatic abnormality. Element of passive venous congestive change is a potential consideration, versus hepatitis or potentially infiltrative lesion. Small amount of pelvic free fluid, nonspecific. Reviewed, dictated and finalized at location . Impression: No evidence for splenic laceration or perisplenic fluid collection. Mild nonspecific heterogeneity medial right hepatic lobe. Correlate with LFTs. Consider hepatic MR to further assess for underlying hepatic abnormality. Eleme nt of passive venous congestive change is a potential consideration, versus hep atitis or potentially infiltrative lesion. Small amount of pelvic free fluid, nonspecific.
[2024-07-21 09:12] LABS: Estimated Glomerular Filt Rate > 60
== END 2024-07-21 08:52 | disposition home or self-care (01) ==
LOC: MICIMG 08:52
PROVIDERS: PCP Family Medicine; Visit Provider Surgery
DX: S36.039A Unspecified laceration of spleen, initial encounter (principal); X58.XXXA Exposure to other specified factors, initial encounter
CPT/HCPCS: 74177; Q9967

== ENCOUNTER 2024-10-02 09:20 | Emergency (ER) | payer MEDICARE, SELFPAY ==
[2024-10-02] VITALS (9 sets, daily range): BP systolic 113–136; BP diastolic 79–96; PULSE 80–107; RESP 12–26; TEMP 36.8; O2SAT 99–100
--- NOTE | ~2024-10-02 | CT_ITS ---
CLINICAL INDICATION: Abdominal pain. COMPARISON: Examination is compared with previous study performed approximately 2 hours earlier. TECHNIQUE: Computed tomography angiography (CTA) of the abdomen and pelvis was performed with 100 mL Omnipaque-350 intravenous contrast timed to evaluate the abdominal aorta and mesenteric vasculature. Coronal maximum intensity projection 3D-reconstructions were created by the technologist. The dose-le ngth product (DLP) was 203.49 mGy-cm. Automated exposure control and iterative reconstruction [employer] were employed. FINDINGS/OBSERVATIONS: Visualized lower thorax: The bilateral lung bases remain clear. The heart remains of normal size without effusion. Small hiatal hernia persists. Liver: The liver enhances homogeneously and is not enlarged. Gallbladder and biliary system: The gallbladder is only minimally distended and otherwise unremarkable. Pancreas: The pancreas enhances homogeneously without ductal dilatation. Spleen: Spleen demonstrates homogeneous enhancement, without enlargement. Kidneys: The bilateral kidneys are unchanged from previous study performed 2 hours earlier, without hydronephr osis or renal calculi. 11 mm focus of decreased attenuation within the interpolar region of the left kidney, unchanged. Adrenal glands: Unremarkable. Gastrointestinal tract: Fecal stasis persists within the colon, consistent with patient's history. Appendix: The appendix is not definitively visualized. However, no pericecal inflammatory change is identified suggest the presence of acute appendicitis. Vasculature: The abdominal aorta is nonaneurysmal. Only trace calcified atherosclerotic disease is present. No contrast extravasation is appreciated on the current examination. Reflux of contrast is identified within the hepatic veins, consistent with patient's known history of CHF. Lymph nodes: No pathologically enlarged or morphologically suspicious lymph nodes within the retroperitoneum or at the root of the mesentery. Pelvic structures: The bladder is distended, now with intravenous contrast. Prostate gland is not enlarged, but demonstrates bulky calcifications. Redemonstration of free fluid within the pelvis, of simple attenuation values, NOT representing hemor rhage. Body wall and musculoskeletal: Fat-containing left inguinal hernia. Age-appropriate degenerative disease within the lower thoracic and lumbosacral spines. IMPRESSION: Significant fecal stasis within the colon, consistent with patient's history. No contrast extravasation identified on the current examination. Of note, if there was concern regarding patient's vascular access for remote history of a cardiac pro cedure, bleeding would be typically be retroperitoneal. The free fluid within the pelvis of simple at tenuation values is likely reactive from patient's prolonged constipation (bowel distention combined with dehydration). Given the contrast load from both a contrast-enhanced CT plus a CTA of the abdomen and pelvis in the span of 3 hours, would recommend aggressive hydration for renal protection - not an easy task in a p atient with a history of CHF. Reviewed, dictated and finalized at location A. IMPRESSION: Significant fecal stasis within the colon, consistent with patient's history. No contrast extravasation identified on the current examination. Of note, if there was concern regarding patient's vascular access for remote hi story of a cardiac procedure, bleeding would be typically be retroperitoneal. T he free fluid within the pelvis of simple attenuation values is likely reactive from patient's prolonged constipation (bowel distention combined with dehydrat ion). Given the contrast load from both a contrast-enhanced CT plus a CTA of the abdo men and pelvis in the span of 3 hours, would recommend aggressive hydration for renal protection - not an easy task in a patient with a history of CHF.
--- NOTE | ~2024-10-02 | CT_ITS ---
CLINICAL INDICATION: Diffuse abdominal pain and constipation COMPARISON: 07/21/2024 and dating back to 06/15/2024. TECHNIQUE: Multiple contiguous axial images of the abdomen and pelvis were performed following the ad ministration of with 100 mL Omnipaque-350 intravenous contrast The dose-length product (DLP) was 180.04 mGy-cm. Automated exposure control and iterative reconstruction technique were employed. FINDINGS/OBSERVATIONS: Visualized lower thorax: The bilateral lung bases are clear. The heart is of normal size, without pericardial effusion. Small hiatal hernia is present. Liver: The liver demonstrates homogeneous enhancement and is not enlarged. Gallbladder and biliary system: The gallbladder is only minimally distended, and otherwise unremarkable. Pancreas: The pancreas enhances homogeneously without ductal dilatation. Spleen: The spleen enhances homogeneously and is not enlarged. Kidneys: Malrotation of the left kidney, a nonspecific finding. 11 mm focus of decreased attenuation within the interpolar region of the left kidney, unchanged from prior. The remainder of the bilateral kidneys otherwise enhance symmetrically without hydronephrosis or bertrand l calculi. Adrenal glands: Unremarkable. Gastrointestinal tract: Significant fecal stasis within the colon with multiple loops of nondilated fluid-filled small bowel, consistent with patient's history. No mural thickening is identified within the loops of fluid-fille d small bowel. Appendix: The appendix is not definitively visualized. However, no pericecal inflammatory change is identified suggest the presence of acute appendicitis. Vasculature: Unremarkable. Lymph nodes: Limited evaluation secondary to the lack of intra-abdominal fat. Pelvic structures: The bladder is distended, and otherwise unremarkable. The prostate gland is not enlarged. Fluid within the pelvis, never a normal finding for a male patient. Body wall and musculoskeletal: Small fat-containing umbilical hernia. Mild, age-appropriate degenerative disease within the lower thoracic and lumbosacral spine. IMPRESSION: Significant fecal stasis within the colon, consistent with patient's history. Free fluid is identified within the pelvis, never a normal finding in a male patient - possibly react jimy? No additional acute findings, as detailed above to account for patient's symptoms Reviewed, dictated and finalized at location A. IMPRESSION: Significant fecal stasis within the colon, consistent with patient's history. Free fluid is identified within the pelvis, never a normal finding in a male pa tient - possibly reactive? No additional acute findings, as detailed above to account for patient's sympto ms
--- NOTE | ~2024-10-02 | XR_ITS ---
EXAM/PROCEDURE: XR chest 1V portable - 10/02/2024 12:25 CDT HISTORY: 59 years old Male with cough TECHNIQUE: AP view(s) of the chest. COMPARISON: None available. FINDINGS: LUNGS/ PLEURA: Airspace opacity in the right lower lung zone. No pleural effusion or pneumothorax. HEART/ MEDIASTINUM: Heart appears normal in size. BONES: No acute osseous abnormality. OTHER: Visualized upper abdomen is unremarkable. IMPRESSION: Airspace opacity in right lower lung zone. Findings can represent pneumonia in appropriate clinical s ettings. Short-term follow-up chest radiograph is recommended after appropriate clinical therapy. Reviewed, dictated and finalized at location A. IMPRESSION: Airspace opacity in right lower lung zone. Findings can represent pneumonia in appropriate clinical settings. Short-term follow-up chest radiograph is recomme nded after appropriate clinical therapy.
--- NOTE | 2024-10-02 09:40 | PC.NURSE ---
Pt stated he was currently unable to urinate to provide urine sample
--- OUTSIDE RECORDS SUMMARY | 2024-10-02 10:02 | XMS_ITS | Clinical Summary ---
Author Organization [email or web address] Address [address] [place] [address] Care Team Providers Care Digital Engineer Name Role Phone Louis Hewitt MD Primary Care Provider [phone] Source Comments [email or web address],non-owned Affiliates and Associated Physician Practices is amultiple site organization consisting of ambulatory clinics and hospital sitesin [place], [place], [place] and [place]. This disclosure is being madepursuant to the Care Everywhere program and may not contain all information available regarding this patient. 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 Gender Identity Not on file Sexual [...] P M CDT Height 165.1 cm (5' 5) 08/31/2021 1:44 PM CDT Body Mass Index [...] COLON CA SCREENING 1965 LIPID TESTING 1965 HIV SCREENING 09/12/1979 HEPATITIS C SCREENING 09/07/1982 DTAP/TDAP/TD VACCINES (1 - Tdap) 09/12/1983 PNEUMOCOCCAL VACCINE 50+ (1 of 1 - PCV) 2014 ZOSTER VACCINE (1 of 2) 2014 COVID-19 VACCINE (1 - 2023-2 5 season) 2023 DEPRESSION SCREENING 03/26/2024 INFLUENZA VACCINE (#1) 2024 Respiratory Syncytial Virus (RSV) Vaccine Pt: or over 60 yrs (1 - 1-dose 75+ series) 09/12/2039 HEPATITIS B VACCINE Aged Out No longe r eligible based on patient's age to complete this topic HIB VACCINE Aged Out No longer eligi [...] this topic Insurance MEDICAID - OUT OF [facility] MEDICARE MEDICARE MEDICAID - [place] Care Teams Digital Engineer Relationship Specialty Start Date End Date Louis Hewitt MD [address] [place] [address] PCP - General 08/26/18
--- OUTSIDE RECORDS SUMMARY | 2024-10-02 10:02 | XMS_ITS | Encounter Summary ---
Author Organization [facility] Address [address] [place] [address] Care Team Providers Care Research Management Associate Name Role Phone Louis Hewitt MD Primary Care Provider [phone] Margarita Stoner RN Unavailable [phone] Encounter Details Date Type Department Care Team (Late st Contact Info) Description 09/15/2024 Documentation [facility] [address] [place] [address] Jazmin Fields RN Social History Tobacco Use Types Packs/Day Years Used Date Smoking Tobacco: Never Smokeless Tobacco: Never [facility] Utilities Answer Date Recorded In the past 12 months has [employer] electric, gas, oil, or water company threatened to shut off services in your home? No 09/09/2024 Social Connection and Isolat ion Panel [NHANES] Answer Date Recorded In a typical week, how many times do you talk on the phone with family, friends, or neighbors? More than three times a week 09/09/2024 How often do you get togethe r with friends or relatives? More than three times a week 09/09/2024 How often do you attend chur ch or lutheran services? Never 09/09/2024 Do you belong to any clubs o r organizations such as protestant groups, unions, fraternal or athletic groups, or school groups? No 09/09/2024 How often do you attend meet ings of the clubs or organizations you belong to? Never 09/09/2024 Are you , , di vorced, , never , or living with a partner? Never 09/09/2024 AUDIT-C Answer Date Recorded Q1: How often do you have a drink containing alcohol? Never 09/15/2024 Q2: How many drinks containi ng alcohol do you have on a typical day when you are drinking? Patient does not drink Q3: How often do you have si x or more drinks on one occasion? Never 09/15/2024 Overall Financial Resource Strain (CARDIA) Answe r Date Recorded How hard is it for you to pa y for the very basics like food, housing, medical care, and heating? Somewhat hard 09/09/2024 Hunger Vital Sign Answer Date Recorded Within the past 12 months, y ou worried that your food would run out before you got the money to buy more. Never true 09/10/19 25 Within the past 12 months, t he food you bought just didn't last and you didn't have money to get more. Never true 09/09/2024 PRAPARE - Transportation Answer Date Re corded In the past 12 months, has l ack of transportation kept you from medical appointments or from getting medications? No 08/24 In the past 12 months, has l ack of transportation kept you from meetings, work, or from getting things needed for daily living? No 09/09/2024 Housing Stability Vital Sign Answer Ebto e Recorded In the last 12 months, was t here a time when you were not able to pay the mortgage or rent on time? No 09/09/2024 In the past 12 months, how m any times have you moved where you were living? 0 09/09/2024 At any time in the past 12 m [facility], were you homeless or living in a chcf (including now)? No 09/09/2024 Personal Safety Answer Date Recorded Have you ever been in or are you currently in a harmful physical or emotional relationship or is someone making you feel afraid or unsafe? 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 Never 09/15/2024 11:25 AM Samina Madison RN Q2: How many drinks containing alcohol do you have on a typical day when you are drinking? Patient does not drink 09/15/2024 11:25 AM Melissa Madison RN Q3: How often do you have six or more drinks on one occasion? Never 09/15/2024 11:25 AM Samina Madison RN documented as of this encounter Plan of Treatment Not on file documented as of this encounter Visit Diagnoses Not on filedocumented in this encounter Care Teams Research Management Associate Relationship Specialty Start Date End Date Louis Hewitt MD PCP - General Family Medicine 01/12/20 Margarita Stoner RN [address] [address] [facility] Outpatient Representative Government Relations 09/18/24 09/21/24 documented as of this encounter
--- OUTSIDE RECORDS SUMMARY | 2024-10-02 10:02 | XMS_ITS | Encounter Summary ---
Author Organization [facility] Address [address] [place] [address] Phone Care Team Providers Care Brown Sourer Name Role Phone Louis Hewitt MD Primary Care Provider [phone] Margarita Stoner RN Unavailable [phone] Encounter Details Date Type Department Care Team (Late st Contact Info) Description 09/08/2024 Telephone [facility] Cardiology [address] [facility] [address] [facility] 8th [place] [address] [place] [address] Taylor Last Social History Tobacco Use Types Packs/Day Years Used Date Smoking Tobacco: Never Smokeless Tobacco: Never [facility] Utilities Answer Date Recorded In the past 12 months has [employer] electric, gas, oil, or water company threatened [...] often do you attend chur ch or amish services? Never 09/09/2024 Do you belong to any clubs o r organizations such as druze groups, unions, fraternal or athletic groups, or school groups? No 09/09/2024 How often do you attend meet ings of the clubs or organizations you belong to? Never 09/09/2024 Are you , , di vorced, , never , or living with a partner? Never 09/09/2024 Overall Financial Resource Strain (CARDIA) Answe r [...] No 09/09/2024 Housing Stability Vital Sign Answer Beto e Recorded In the last 12 months, was t here a time when you were not able to pay the mortgage or rent on time? No 09/09/2024 In the past 12 months, how m any times have you moved where you were living? 0 09/09/2024 At any time in the past 12 m [facility], were you homeless or living in a care home (including now)? No 09/09/2024 Personal Safety Answer Date Recorded Have you ever been in or are you currently in a harmful physical or emotional relationship or is someone making you feel afraid or unsafe? 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 - 09/08/2024 12:18 PM CDT [facility] * Telephone Encounter - Taylor Last - 09/08/2024 12:12 PM CDT CARDIOLOGY CONSULT 09/08/2024 RECEIVED BY: Taylor Last IS THE PATIENT CURRENTLY UNDERGOING CANCER TREATMENTS? no TYPE OF CONSULT: general CALLER'S NAME: JULIA CHUN CALLER'S PAGER: [phone] PATIENT'S NAME: Miguelito Lopes : 1965 CAMPUS: [facility] PATIENT'S LOCATION: [address] 1 REASON FOR CONSULT: OTHER TTE WITH SUPERIOR LEFT VENA CAVA ATTENDING PHYSICIAN: DR ALSTON documented in this encounter Plan of Treatment Not on file documented as of this encounter Visit Diagnoses Not on filedocumented in this encounter Care Teams Brown Sourer Relationship Specialty Start Date End Date Louis Hewitt MD PCP - General Family Medicine 01/12/20 Margarita Stoner RN [address] [address] [facility] Outpatient Machinist Apprentice Wood 09/18/24 09/21/24 documented as of this encounter
--- OUTSIDE RECORDS SUMMARY | 2024-10-02 10:02 | XMS_ITS | Encounter Summary ---
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
--- OUTSIDE RECORDS SUMMARY | 2024-10-02 10:02 | XMS_ITS | Encounter Summary ---
Author Organization [facility] Address [address] [place] [address] Phone Care Team Providers Care Restaurant Server Name Role Phone Louis Hewitt MD Primary Care Provider + [phone] Margarita Stoner RN Unavailable [phone] Margarita Stoner RN Unavailable [phone] Encounter Details Date Type Department Care Team (Late st Contact Info) Description 05/08/2023 Orders Only [facility] Scanning, Provider Social History Tobacco Use Types Packs/Day Years Used Date Smoking Tobacco: Never Smokeless Tobacco: Never Sex and Gender Information Value Date Recorded Sex Assigned at Not on file 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
--- OUTSIDE RECORDS SUMMARY | 2024-10-02 10:02 | XMS_ITS | Encounter Summary ---
Author Organization [facility] Address [address] [place] [address] Phone Care Team Providers Care Commercial Portfolio Manager Name Role Phone Louis Hewitt MD Primary Care Provider + [phone] Margarita Stoner RN Unavailable [phone] Margarita Stoner RN Unavailable [phone] Encounter Details Date Type Department Care Team (Late st Contact Info) Description 07/18/2023 Orders Only [facility] Scanning, Provider Social History Tobacco Use Types Packs/Day Years Used Date Smoking Tobacco: Never Smokeless Tobacco: Never Sex and Gender Information Value Date Recorded Sex Assigned at Not on file 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
--- OUTSIDE RECORDS SUMMARY | 2024-10-02 10:03 | XMS_ITS | Continuity of Care Document ---
Author Organization [facility] Address [address] [place] [address] Phone Care Team Providers Care Kraft Digester Operator Name Role Phone Sandra Vazquez Unavailable Unavailable Advance Directives Directive Yes / No Effective Date File Name No Information Encounters Encounter Description Practice Location Reason(s) For Visit Diagnoses Date Provider Providers Copied on Encounter [facility], [address], [place], [place], [id number], [place] tel:[phone] [address] [facility] No Information [phone] Taylor Flores. [address] [facility] , [address], [place], [address], [place]. tel:[phone] Family History Family Member Type Diagnosis Age At Onset No Information Payers Payer name Insurance type Covered libertarian ID Authoriza tion(s) Medicaid [facility] [id number] Social History Type Description Quantity Date Captured [...]
--- OUTSIDE RECORDS SUMMARY | 2024-10-02 10:03 | XMS_ITS | Referral Summary ---
Author Organization [facility] Address [address] [place] [address] Care Team Providers Care Education Managers Name Role Phone Louis Hewitt MD Primary Care Provider Encounters Date Type Department Care Team Description 09/22/2024 SHOP/CHAP Initial Outreach [facility] OP CASE [facility]NAGEMENT [address] [place] [address] Margarita Stoner, RAFAELA 09/19/2024 SHOP/CHAP Initial Outreach [facility] CASE [facility]NAGEMENT [address] [place] [address] Margarita Stoner, RAFAELA 09/18/2024 SHOP/CHAP Initial Outreach [facility] CASE [facility]NAGEMENT [address] [place] [address] Margarita Stoner, RAFAELA 09/18/2024 SHOP/CHAP Initial Eligibility Review [facility] CASE MANAGEMENT [address] [place] [address] Margarita Stoner, RAFAELA 09/17/2024 Telephone [facility] Cardiology [facility] [employer] [address] [place] [address] Bess Lim MD [facility] f/u appt with Echo 09/05/2024 10:37 PM CDT - 09/17/2024 2:30 PM CDT Hospital Encounter [facility] [address] [place] [address] Lisa Ibarra MD Chan, Philip, MD Freilich, MD Thomas Albert, MD Flo Garnica, MD Ayaz Santana, Vince Doan MD Tachycardia (Primary Dx); NAFLD (nonalcoholic fatty liver disease); Essential hypertension; Paroxysmal atrial fibrillation (HCC); Hyperbilirubinemia; ASD (atrial septal defect), ostium secundum Discharge Disposition: Discharge to home or self care 09/15/2024 Documentation [facility] Case Management [address] [place] [phone] Jazmin Fields RN 09/15/2024 11:45 AM CDT - 09/15/2024 1:35 PM CDT Surgery [facility] [address] [place] [address] Tin Calvert MD PhD ATRIAL SEPTAL DEFECT (ASD), PATENT FORAMEN OVALE (PFO), FENESTRATION CLOSURE [id number] 09/08/2024 Telephone [facility] Cardiology [address] [facility] Advanced Medicine 8th [place] [address] [place] [id number] Taylor Last 07/04/2024 SHOP/CHAP Initial Outreach [facility] OP CASE MANAGEMENT [address] [place] [address] Margarita Stoner RN from Last 3 Months Allergies Active Allergy Reactions Criticality Noted Date Comments Ciprofloxacin Fever,Rash Medium 08/26/2018 Medications Eliquis 5 mg tabletIndications: atrial fibrillation,atria l fibrillation s/p ASD occluder indefinitely Take 1 tablet (5 mg total) by mouth 2 (two) times a day 1 Active aspirin 81 mg chewable tabletIndications: prevention of thrombosis,prevent ion of thrombosis x1 month Take 1 tablet (81 mg total) by mouth daily 30 tablet 5 025 Active clopidogreL (PLAVIX) 75 mg tabletIndications: thrombosis prevention after ASD occluder x3 months Take 1 tablet (75 mg total) by mouth daily 90 tablet 5 025 Active apixaban (ELIQUIS) 5 mg tabletIndications: atrial fibrillation Take 1 tablet (5 mg total) by mouth every 12 (twelve) hours 60 tablet 5 Active tamsulosin (FLOMAX) 0.4 mg extended release capsule Take 1 capsule (0.4 mg total) by mouth daily with dinner 30 capsule 5 Active senna (SENOKOT) 8.6 mg tablet Take 2 tablets by mouth daily 60 tablet 5 Active metoprolol XL (TOPROL-XL) 50 mg extended release tablet Take 1 tablet (50 mg total) by mouth daily 30 tablet 5 026 Active acetaminophen 500 mg capsule Take 2 capsules (1,000 mg total) by mouth every 6 (six) hours as needed for pain 30 tablet 5 Active albuterol 1.25 mg/3 mL nebulizer solution as needed 9 025 Discontin ued(Patie nt Reported) metoprolol XL (TOPROL-XL) 50 mg extended release tablet Take 1 tablet (50 mg total) by mouth daily 025 Discontin ued(Patie nt Reported) folic acid (FOLVITE) 1 mg tabletIndications: Treatment of known or suspected Wernicke's Encephalopathy Take 1 tablet (1 mg total) by mouth daily for 2 doses 2 tablet 5 025 Discontin ued(Patie nt Reported) thiamine (VITAMIN B-1) 250 mg tabletIndications: Treatment of known or suspected Wernicke's Encephalopathy Take 1 tablet (250 mg total) by mouth daily for 5 doses 5 tablet 5 025 Discontin ued(Patie nt Reported) Active Problems Problem Noted Date Diagnosed Date ASD (atrial septal defect), ostium secundum 08/25 Assessment & Plan (09/17/2024 9:02 AM CDT): #s/p Amplatz ASD occluder 09/15 P/w NT-proBNP 920. No clear HF history documented. OSH records note TTE 05/2023: EF 52%, severe biatrial enlargement, mild LVH, mild MR. He denies orthopnea/extremity swelling, dyspnea on exertion. TTE 09/08: ostium secundum ASD, possible L SVC w/dilated coronary sinus, evidence of chronic RV overload, normal LV/RVSF. cMRI 09/09: ostium secundum , L SVC w/dilated coronary sinus, RV dilation. -CXR 09/15pm + 09/16am both ASD closure device in place with no acute cardiopulmonary process -TTE 09/16 without evidence of shunt on agitated bubble study, ASD occluder in place, normal LV-/RVSF, mild MVP -ASA 81mg qdaily x1 month, Plavix 75mg qdaily x3 months, Eliquis 5mg BID indefinitely -Outpatient TTE in 2-3 months -F/u at congenital cardiology clinic Assessment & Plan (09/16/2024 11:12 AM CDT): #s/p Amplatz ASD occluder 09/15 P/w NT-proBNP 920. No clear HF history documented. OSH records note TTE 05/2023: EF 52%, severe biatrial enlargement, mild LVH, mild MR. He denies orthopnea/extremity swelling, dyspnea on exertion. TTE 09/08: ostium secundum ASD, possible L SVC w/dilated coronary sinus, evidence of chronic RV overload, normal LV/RVSF. cMRI 09/09: ostium secundum , L SVC w/dilated coronary sinus, RV dilation. -CXR 09/15pm + both ASD closure device in place with no acute cardiopulmonary process -TTE today -ASA/eliquis indefinitely, plavix x2 week post op -F/u Cardiology recs Assessment & Plan (09/15/2024 10:07 AM CDT): P/w NT-proBNP 920. No clear HF history documented. OSH records note TTE 05/2023: EF 52%, severe biatrial enlargement, mild LVH, mild MR. He denies orthopnea/extremity swelling, dyspnea on exertion. TTE 09/08: ostium secundum ASD, possible L SVC w/dilated coronary sinus, evidence of chronic RV overload, normal LV/RVSF. cMRI 09/09: ostium secundum , L SVC w/dilated coronary sinus, RV dilation. -F/u Cardiology recs following ICE with possible ASD intervention today Assessment & Plan (09/14/2024 12:41 PM CDT): P/w NT-proBNP 920. No clear HF history documented. OSH records note TTE 05/2023: EF 52%, severe biatrial enlargement, mild LVH, mild MR. He denies orthopnea/extremity swelling, dyspnea on exertion. TTE 09/08: ostium secundum ASD, possible L SVC w/dilated coronary sinus, evidence of chronic RV overload, normal LV/RVSF. cMRI 09/09: ostium secundum , L SVC w/dilated coronary sinus, RV dilation. -Cardiology recommending ICE with possible ASD intervention on 09/15 -NPO @0001 09/15 Assessment & Plan (09/13/2024 11:15 AM CDT): P/w NT-proBNP 920. No clear HF history documented. OSH records note TTE 05/2023: EF 52%, severe biatrial enlargement, mild LVH, mild MR. He denies orthopnea/extremity swelling, dyspnea on exertion. TTE 09/08: ostium secundum ASD, possible L SVC w/dilated coronary sinus, evidence of chronic RV overload, normal LV/RVSF. cMRI 09/09: ostium secundum , L SVC w/dilated coronary sinus, RV dilation. -Cardiology recommending ICE with possible ASD intervention on 09/15 -NPO @0001 09/15 Assessment & Plan (09/12/2024 3:32 PM CDT): P/w NT-proBNP 920. No clear HF history documented. OSH records note TTE 05/2023: EF 52%, severe biatrial enlargement, mild LVH, mild MR. He denies orthopnea/extremity swelling, dyspnea on exertion. TTE 09/08: ostium secundum ASD, possible L SVC w/dilated coronary sinus, evidence of chronic RV overload, normal LV/RVSF. cMRI 09/09: ostium secundum , L SVC w/dilated coronary sinus, RV dilation. 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 No clear HF history documented. OSH records note TTE 05/2023: EF 52%, severe biatrial enlargement, mild LVH, mild MR. He denies orthopnea/extremity swelling, dyspnea on exertion. TTE 09/08: ostium secundum ASD, possible L SVC w/dilated coronary sinus, evidence of chronic RV overload, normal LV/RVSF. cMRI 09/09: ostium secundum , L SVC w/dilated coronary sinus, RV dilation. -CXR 09/15pm + 09/16am both ASD closure device in place with no acute cardiopulmonary process -TTE 09/16 without evidence of shunt on agitated bubble study, ASD occluder in place, normal LV-/RVSF, mild MVP -ASA 81mg qdaily x1 month, Plavix 75mg qdaily x3 months, Eliquis 5mg BID indefinitely -Outpatient TTE in 2-3 months -F/u at congenital cardiology clinic Assessment & Plan (09/16/2024 11:12 AM CDT): #s/p Amplatz ASD occluder 09/15 P/w NT-proBNP 920. No clear HF history documented. OSH records note TTE 05/2023: EF 52%, severe biatrial enlargement, mild LVH, mild MR. He denies orthopnea/extremity swelling, dyspnea on exertion. TTE 09/08: ostium secundum ASD, possible L SVC w/dilated coronary sinus, evidence of chronic RV overload, normal LV/RVSF. cMRI 09/09: ostium secundum , L SVC w/dilated coronary sinus, RV dilation. -CXR 09/15pm + 09/16am both ASD closure device in place with no acute cardiopulmonary process -TTE today -ASA/eliquis indefinitely, plavix x2 week post op -F/u Cardiology recs Assessment & Plan (09/15/2024 10:07 AM CDT): P/w NT-proBNP 920. No clear HF history documented. OSH records note TTE 05/2023: EF 52%, severe biatrial enlargement, mild LVH, mild MR. He denies orthopnea/extremity swelling, dyspnea on exertion. TTE 09/08: ostium secundum ASD, possible L SVC w/dilated coronary sinus, evidence of chronic RV overload, normal LV/RVSF. cMRI 09/09: ostium secundum , L SVC w/dilated coronary sinus, RV dilation. -F/u Cardiology recs following ICE with possible ASD intervention today Assessment & Plan (09/14/2024 12:41 PM CDT): P/w NT-proBNP 920. No clear HF history documented. OSH records note TTE 05/2023: EF 52%, severe biatrial enlargement, mild LVH, mild MR. He denies orthopnea/extremity swelling, dyspnea on exertion. TTE 09/08: ostium secundum ASD, possible L SVC w/dilated coronary sinus, evidence of chronic RV overload, normal LV/RVSF. cMRI 09/09: ostium secundum , L SVC w/dilated coronary sinus, RV dilation. -Cardiology recommending ICE with possible ASD intervention on 09/15 -NPO @0001 09/15 Assessment & Plan (09/13/2024 11:15 AM CDT): P/w NT-proBNP 920. No clear HF history documented. OSH records note TTE 05/2023: EF 52%, severe biatrial enlargement, mild LVH, mild MR. He denies orthopnea/extremity swelling, dyspnea on exertion. TTE 09/08: ostium secundum ASD, possible L SVC w/dilated coronary sinus, evidence of chronic RV overload, normal LV/RVSF. cMRI 09/09: ostium secundum , L SVC w/dilated coronary sinus, RV dilation. -Cardiology recommending ICE with possible ASD intervention on 09/15 -NPO @0001 09/15 Assessment & Plan (09/12/2024 3:32 PM CDT): P/w NT-proBNP 920. No clear HF history documented. OSH records note TTE 05/2023: EF 52%, severe biatrial enlargement, mild LVH, mild MR. He denies orthopnea/extremity swelling, dyspnea on exertion. TTE 09/08: ostium secundum ASD, possible L SVC w/dilated coronary sinus, evidence of chronic RV overload, normal LV/RVSF. cMRI 09/09: ostium secundum , L SVC w/dilated coronary sinus, RV dilation. -Cardiology consulted, appreciate recs -f/u Structural Cardiology recs Tachycardia 09/06/2024 Assessment & Plan (09/17/2024 11:15 AM CDT): Afib on eliquis, has not been taking for a few weeks 2/2 bruising. Presents in afib w/RVR to HR 120s, subsequently self resolved now with normal HR in NSR. Chart history of metoprolol 50mg XL qdaily, patient not currently taking. Runs of afib/NSVT suspected to be possibly related to cardiac findings on TTE with R heart abnormalities related to ostium secundum ASD. -D/c on metoprolol 50mg XL qdaily, anticoagulation/antiplatelet as below Assessment & Plan (09/16/2024 11:12 AM CDT): Afib on eliquis, has not been taking for a few weeks 2/2 bruising. Presents in afib w/RVR to HR 120s, subsequently self resolved now with normal HR in NSR. Chart history of metoprolol 50mg XL qdaily, patient not currently taking. Runs of afib/NSVT suspected to be possibly related to cardiac findings on TTE with R heart abnormalities related to ostium secundum ASD. -Restart eliquis and consolidate metoprolol vs other recommendations per Cardiology Assessment & Plan (09/15/2024 10:07 AM CDT): Afib on eliquis, has not been taking for a few weeks 2/2 bruising. Presents in afib w/RVR to HR 120s, subsequently self resolved now with normal HR in NSR. Chart history of metoprolol 50mg XL qdaily, patient not currently taking. Runs of afib/NSVT suspected to be possibly related to cardiac findings on TTE with R heart abnormalities related to ostium secundum ASD. -Restart eliquis and consolidate metoprolol vs other recommendations per Cardiology Assessment & Plan (09/14/2024 12:59 PM CDT): Afib on eliquis, has not been taking for a few weeks 2/2 bruising. Presents in afib w/RVR to HR 120s, subsequently self resolved now with normal HR in NSR. Chart history of metoprolol 50mg XL qdaily, patient not currently taking. Runs of afib/NSVT suspected to be possibly related to cardiac findings on TTE with R heart abnormalities related to ostium secundum ASD. -metoprolol 12.5mg BID with hold parameters for HR and BP -consider consolidation following procedure tomorrow pending Cardiology recs Assessment & Plan (09/13/2024 8:57 AM CDT): Afib on eliquis, has not been taking for a few weeks 2/2 bruising. Presents in afib w/RVR to HR 120s, subsequently self resolved now with normal HR in NSR. Chart history of metoprolol 50mg XL qdaily, patient not currently taking. Runs of afib/NSVT suspected to be possibly related to cardiac findings on TTE with R heart abnormalities related to ostium secundum ASD. -metoprolol 12.5mg BID with hold parameters for HR and BP Assessment & Plan (09/12/2024 3:32 PM CDT): Afib on eliquis, has not been taking for a few weeks 2/2 bruising. Presents in afib w/RVR to HR 120s, subsequently self resolved now with normal HR in NSR. Chart history of metoprolol 50mg XL qdaily, patient not currently taking. Runs of afib/NSVT suspected to be possibly related to cardiac findings on TTE with R heart abnormalities related to ostium secundum ASD. -metoprolol 12.5mg BID with hold parameters for HR and BP Assessment & Plan (2024 11:45 AM CDT): -Afib on eliquis, has not been taking for a few weeks 2/2 bruising -Presents in afib w/RVR to HR 120s, subsequently self resolved now with normal HR in NSR -Chart history of metoprolol 50mg XL qdaily, patient not currently taking -runs of afib/NSVT suspected to be possibly related to cardiac findings on TTE with R heart abnormalities related to ostium secundum ASD -09/11am o/n tele quiet, however patient with some asymptomatic hypotension o/n -decrease metoprolol to 12.5mg BID Assessment & Plan (09/10/2024 1:13 PM CDT): -Afib on eliquis, has not been taking for a few weeks 2/2 bruising -Presents in afib w/RVR to HR 120s, subsequently self resolved now with normal HR in NSR -Chart history of metoprolol 50mg XL qdaily, patient not currently taking -runs of afib/NSVT suspected to be possibly related to cardiac findings on TTE with R heart abnormalities related to ostium secundum ASD -metoprolol to 12.5mg tartrate q6hr, consider consolidating to BID dosing Assessment & Plan (09/09/2024 11:43 AM CDT): -Afib on eliquis, has not been taking for a few weeks 2/2 bruising -Presents in afib w/RVR to HR 120s, subsequently self resolved now with normal HR in NSR -Chart history of metoprolol 50mg XL qdaily, patient not currently taking -runs of afib/NSVT suspected to be possibly related to cardiac findings on TTE with R heart abnormalities related to ostium secundum ASD -metoprolol to 12.5mg tartrate q6hr, consider consolidating to BID dosing Assessment & Plan (09/08/2024 10:24 AM CDT): -Afib on eliquis, has not been taking for a few weeks 2/2 bruising -Presents in afib w/RVR to HR 120s, subsequently self resolved now with normal HR in NSR -Chart history of metoprolol 50mg XL qdaily, patient not currently taking -09/08 arrhythmic events o/n including being in and out of afib, afib w/RVR to HR 138, runs of VT up to 8 beats, received additional metop 12.5 and 2g of mag, suspected possible exacerbated by pain/discomfort a/w his constipation -increase metoprolol to 12.5mg tartrate q6hr -pending TTE Assessment & Plan (09/07/2024 11:07 AM CDT): -Afib on eliquis, has not been taking for a few weeks 2/2 bruising -Presents in afib w/RVR to HR 120s, subsequently self resolved now with normal HR in NSR -Chart history of metoprolol 50mg XL qdaily, patient not currently taking -metoprolol 12.5mg tartrate BID -pending TTE resume therapeutic anticoagulation Assessment & Plan (09/06/2024 1:34 PM CDT): -Afib on eliquis, has not been taking for a few weeks 2/2 bruising -Presents in afib w/RVR to HR 120s, subsequently self resolved now with normal HR in NSR -Chart history of metoprolol 50mg XL qdaily, patient not currently taking -metoprolol 12.5mg tartrate BID -pending TTE resume therapeutic anticoagulation Bilirubinemia 09/06/2024 Assessment & Plan (09/17/2024 9:02 AM CDT): P/w tBili 2.9, dBili 0.5. Now normalized. -CTM Assessment & Plan (09/16/2024 11:12 AM CDT): P/w tBili 2.9, dBili 0.5. Now normalized. -CTM Assessment & Plan (09/15/2024 10:07 AM CDT): P/w tBili 2.9, dBili 0.5. Now normalized. -CTM Assessment & Plan (09/14/2024 12:41 PM CDT): P/w tBili 2.9, dBili 0.5. Now normalized. -CTM Assessment & Plan (09/13/2024 8:57 AM CDT): P/w tBili 2.9, dBili 0.5. Now normalized. -CTM Assessment & Plan (09/12/2024 3:32 PM CDT): P/w tBili 2.9, dBili 0.5. Now normalized. -CTM Assessment & Plan (2024 11:45 AM CDT): -P/w tBili 2.9, dBili 0.5 -Previously had not been this elevated, hepatitis panel wnl 06/2024, Hgb 16.7, plt 201 -Aphos/AST/ALT 56/32/29 > -tBili 2.9 > 2.4 > 1.7 > 1.9 > 1.2 Assessment & Plan (09/10/2024 1:13 PM CDT): -P/w tBili 2.9, dBili 0.5 -Previously had not been this elevated, hepatitis panel wnl 06/2024, Hgb 16.7, plt 201 -Aphos/AST/ALT 56/32/29 > 52// -tBili 2.9 > 2.4 > 1.7 > 1.9 > 1.2 Assessment & Plan (09/09/2024 11:43 AM CDT): -P/w tBili 2.9, dBili 0.5 -Previously had not been this elevated, hepatitis panel wnl 06/2024, Hgb 16.7, plt 201 -Aphos/AST/ALT 56/32/29 > -tBili 2.9 > 2.4 > 1.7 > 1.9 -In this patient with evidence of RV dysfunction on CT, elevated BNP, chart history of reduced EF w/valvular disease, suspecting possible congestion related conjugation impairment etiology to bilirubinemia, he has no evidence of acute bleed/hematoma and Hgb near baseline, and bilirubinemia is resolving Assessment & Plan (09/08/2024 10:24 AM CDT): -P/w tBili 2.9, dBili 0.5 -Previously had not been this elevated, hepatitis panel wnl 06/2024, Hgb 16.7, plt 201 -Aphos/AST/ALT / > -tBili 2.9 > 2.4 > 1.7 -In this patient with evidence of RV dysfunction on CT, elevated BNP, chart history of reduced EF w/valvular disease, suspecting possible congestion related conjugation impairment etiology to bilirubinemia, he has no evidence of acute bleed/hematoma and Hgb near baseline, and bilirubinemia is resolving Assessment & Plan (09/07/2024 11:07 AM CDT): -P/w tBili 2.9, dBili 0.5 -Previously had not been this elevated, hepatitis panel wnl 06/2024, Hgb 16.7, plt 201 -Aphos/AST/ALT /29 > -tBili 2.9 > 2.4 -In this patient with evidence of RV dysfunction on CT, elevated BNP, chart history of reduced EF w/valvular disease, suspecting possible congestion related conjugation impairment etiology to bilirubinemia, he has no evidence of acute bleed/hematoma and Hgb near baseline Assessment & Plan (09/06/2024 11:47 AM CDT): -P/w tBili 2.9, dBili 0.5, seemingly consistent with unconjugated bilirubinemia -Previously had not been this elevated, hepatitis panel wnl 06/2024, Hgb 16.7, plt 201 -Aphos/AST/ALT 56/32/29 -In this patient with evidence of RV dysfunction on CT, elevated BNP, chart history of reduced EF w/valvular disease, suspecting possible congestion related conjugation impairment etiology to bilirubinemia, he has no evidence of acute bleed/hematoma and Hgb near baseline -daily hepatic function panel Constipation 09/06/2024 Assessment & Plan (09/17/2024 9:02 AM CDT): Patient endorsed at least 1 week constipation on admission. Denied nausea/vomiting, did note decreasing PO tolerance 2/2 pain. CTAP with evidence of stool burden. TSH 2.14. Have attempted q2 lactulose, fleet/soap enema, milk of mag, 1L golytely. 09/09 disimpaction attempted without stool in rectum appreciated. KUB with small stool burden in right hemicolon. Patient tolerating PO, abdominal pain stable. 1L watery stool on 09/10, and large BM on 09/11. Cardiac findings are likely contributing to abdominal pain. -bM x1 09/16 s/p magnesium citrate -encourage PO and OOB ambulation Assessment & Plan (09/16/2024 11:12 AM CDT): Patient endorsed at least 1 week constipation on admission. Denied nausea/vomiting, did note decreasing PO tolerance 2/2 pain. CTAP with evidence of stool burden. TSH 2.14. Have attempted q2 lactulose, fleet/soap enema, milk of mag, 1L golytely. 09/09 disimpaction attempted without stool in rectum appreciated. KUB with small stool burden in right hemicolon. Patient tolerating PO, abdominal pain stable. 1L watery stool on 09/10, and large BM on 09/11. Cardiac findings are likely contributing to abdominal pain. -continue miralax/senna BID -encourage PO and OOB ambulation Assessment & Plan (09/15/2024 10:07 AM CDT): Patient endorsed at least 1 week constipation on admission. Denied nausea/vomiting, did note decreasing PO tolerance 2/2 pain. CTAP with evidence of stool burden. TSH 2.14. Have attempted q2 lactulose, fleet/soap enema, milk of mag, 1L golytely. 09/09 disimpaction attempted without stool in rectum appreciated. KUB with small stool burden in right hemicolon. Patient tolerating PO, abdominal pain stable. 1L watery stool on 09/10, and large BM on 09/11. Cardiac findings are likely contributing to abdominal pain. -continue miralax/senna BID -encourage PO and OOB ambulation Assessment & Plan (09/14/2024 12:41 PM CDT): Patient endorsed at least 1 week constipation on admission. Denied nausea/vomiting, did note decreasing PO tolerance 2/2 pain. CTAP with evidence of stool burden. TSH 2.14. Have attempted q2 lactulose, fleet/soap enema, milk of mag, 1L golytely. 09/09 disimpaction attempted without stool in rectum appreciated. KUB with small stool burden in right hemicolon. Patient tolerating PO, abdominal pain stable. 1L watery stool on 09/10, and large BM on 09/11. Cardiac findings are likely contributing to abdominal pain. -continue miralax/senna BID -encourage PO and OOB ambulation Assessment & Plan (09/13/2024 8:57 AM CDT): Patient endorsed at least 1 week constipation on admission. Denied nausea/vomiting, did note decreasing PO tolerance 2/2 pain. CTAP with evidence of stool burden. TSH 2.14. Have attempted q2 lactulose, fleet/soap enema, milk of mag, 1L golytely. 09/09 disimpaction attempted without stool in rectum appreciated. KUB with small stool burden in right hemicolon. Patient tolerating PO, abdominal pain stable. 1L watery stool on 09/10, and large BM on 09/11. Cardiac findings are likely contributing to abdominal pain. -continue miralax/senna BID -encourage PO and OOB ambulation Assessment & Plan (09/12/2024 3:32 PM CDT): Patient endorsed at least 1 week constipation on admission. Denied nausea/vomiting, did note decreasing PO tolerance 2/2 pain. CTAP with evidence of stool burden. TSH 2.14. Have attempted q2 lactulose, fleet/soap enema, milk of mag, 1L golytely. 09/09 disimpaction attempted without stool in rectum appreciated. KUB with small stool burden in right hemicolon. Patient tolerating PO, abdominal pain stable. 1L watery stool on 09/10, and large BM on 09/11. Cardiac findings are likely contributing to abdominal pain. -continue miralax/senna BID -encourage PO and OOB ambulation Assessment & Plan (2024 11:45 AM CDT): -Patient endorsing at least 1 week constipation -Denies nausea/vomiting, has had decreasing PO tolerance 2/2 pain, passing flatus -CTAP with evidence of stool burden, TSH 2.14 -have attempted q2 lactulose, fleet/soap enema, milk of mag, 1L golytely -09/09 disimpaction attempted without stool in rectum appreciated -KUB with small stool burden in right hemicolon, patient tolerating PO, abdominal pain stable/improving, has passed 1L watery stool I past 24hr, lower concern for ongoing constipation would not expect such volume if stool burden was severe also given cardiac findings possible component of congestion contributing to abdominal pain -continue miralax/senna BID -encourage PO and OOB ambulation Assessment & Plan (09/10/2024 12:05 PM CDT): -Patient endorsing at least 1 week constipation -Denies nausea/vomiting, has had decreasing PO tolerance 2/2 pain, passing flatus -CTAP with evidence of stool burden, TSH 2.14 -have attempted q2 lactulose, fleet/soap enema, milk of mag, 1L golytely -09/09 disimpaction attempted without stool in rectum appreciated -KUB with small stool burden in right hemicolon -continue miralax/senna BID -magnesium citrate -encourage PO and OOB ambulation Assessment & Plan (09/09/2024 11:43 AM CDT): -Patient endorsing at least 1 week constipation -Denies nausea/vomiting, has had decreasing PO tolerance 2/2 pain, passing flatus -CTAP with evidence of stool burden -TSH 2.14 -6/15am with passage of watery stool, suspecting patient still with large stool burden -miralax BID, senna BID -have attempted q2 lactulose, fleet/soap enema, milk of mag all without solid BM -patient ordered golytely 09/08pm, completed about 30%, still without BM and complaints of abdominal discomfort. He continues to pass flatus and small liquid brown stool -encourage golytely intake -magnesium citrate x1 -patient still refusing manual disimpaction, will continue to discuss Assessment & Plan (09/08/2024 10:24 AM CDT): -Patient endorsing at least 1 week constipation -Denies nausea/vomiting, has had decreasing PO tolerance 2/2 pain, passing flatus -CTAP with evidence of stool burden -TSH 2.14 -6/15am with passage of watery stool, suspecting patient still with large stool burden -miralax BID, senna BID -holding lactulose due to refusal -add milk of mag, soap suds enema, consider golytely tonight if no BM -patient refusing manual disimpaction, will continue to discuss Assessment & Plan (09/07/2024 11:07 AM CDT): -Patient endorsing at least 1 week constipation -Denies nausea/vomiting, has had decreasing PO tolerance 2/2 pain, passing flatus -CTAP with evidence of stool burden -TSH 2.14 -6/15am with passage of watery stool, suspecting patient still with large stool burden -miralax BID, senna BID -resume lactulose q2hr and add mineral oil enema, consider manual disimpaction Assessment & Plan (09/06/2024 1:34 PM CDT): -Patient endorsing at least 1 week constipation -Denies nausea/vomiting, has had decreasing PO tolerance 2/2 pain, passing flatus -CTAP with evidence of stool burden -f/u TSH -miralax BID, senna BID -lactulose q2hr Elevated brain natriuretic peptide (BNP) level 0 09/06/2024 Assessment & Plan (09/17/2024 9:02 AM CDT): #s/p Amplatz ASD occluder 09/15 P/w NT-proBNP 920. No clear HF history documented. OSH records note TTE 05/2023: EF 52%, severe biatrial enlargement, mild LVH, mild MR. He denies orthopnea/extremity swelling, dyspnea on exertion. TTE 09/08: ostium secundum ASD, possible L SVC w/dilated coronary sinus, evidence of chronic RV overload, normal LV/RVSF. cMRI 09/09: ostium secundum , L SVC w/dilated coronary sinus, RV dilation. -CXR 09/15pm + 09/16am both ASD closure device in place with no acute cardiopulmonary process -TTE 09/16 without evidence of shunt on agitated bubble study, ASD occluder in place, normal LV-/RVSF, mild MVP -ASA 81mg qdaily x1 month, Plavix 75mg qdaily x3 months, Eliquis 5mg BID indefinitely -Outpatient TTE in 2-3 months -F/u at congenital cardiology clinic Assessment & Plan (09/16/2024 11:12 AM CDT): #s/p Amplatz ASD occluder 09/15 P/w NT-proBNP 920. No clear HF history documented. OSH records note TTE 05/2023: EF 52%, severe biatrial enlargement, mild LVH, mild MR. He denies orthopnea/extremity swelling, dyspnea on exertion. TTE 09/08: ostium secundum ASD, possible L SVC w/dilated coronary sinus, evidence of chronic RV overload, normal LV/RVSF. cMRI 09/09: ostium secundum , L SVC w/dilated coronary sinus, RV dilation. -CXR 09/15pm + 09/16am both ASD closure device in place with no acute cardiopulmonary process -TTE today -ASA/eliquis indefinitely, plavix x2 week post op -F/u Cardiology recs Assessment & Plan (09/15/2024 10:07 AM CDT): P/w NT-proBNP 920. No clear HF history documented. OSH records note TTE 05/2023: EF 52%, severe biatrial enlargement, mild LVH, mild MR. He denies orthopnea/extremity swelling, dyspnea on exertion. TTE 09/08: ostium secundum ASD, possible L SVC w/dilated coronary sinus, evidence of chronic RV overload, normal LV/RVSF. cMRI 09/09: ostium secundum , L SVC w/dilated coronary sinus, RV dilation. -F/u Cardiology recs following ICE with possible ASD intervention today Assessment & Plan (09/14/2024 12:41 PM CDT): P/w NT-proBNP 920. No clear HF history documented. OSH records note TTE 05/2023: EF 52%, severe biatrial enlargement, mild LVH, mild MR. He denies orthopnea/extremity swelling, dyspnea on exertion. TTE 09/08: ostium secundum ASD, possible L SVC w/dilated coronary sinus, evidence of chronic RV overload, normal LV/RVSF. cMRI 09/09: ostium secundum , L SVC w/dilated coronary sinus, RV dilation. -Cardiology recommending ICE with possible ASD intervention on 09/15 -NPO @0001 09/15 Assessment & Plan (09/13/2024 11:15 AM CDT): P/w NT-proBNP 920. No clear HF history documented. OSH records note TTE 05/2023: EF 52%, severe biatrial enlargement, mild LVH, mild MR. He denies orthopnea/extremity swelling, dyspnea on exertion. TTE 09/08: ostium secundum ASD, possible L SVC w/dilated coronary sinus, evidence of chronic RV overload, normal LV/RVSF. cMRI 09/09: ostium secundum , L SVC w/dilated coronary sinus, RV dilation. -Cardiology recommending ICE with possible ASD intervention on 09/15 -NPO @0001 09/15 Assessment & Plan (09/12/2024 3:32 PM CDT): P/w NT-proBNP 920. No clear HF history documented. OSH records note TTE 05/2023: EF 52%, severe biatrial enlargement, mild LVH, mild MR. He denies orthopnea/extremity swelling, dyspnea on exertion. TTE 09/08: ostium secundum ASD, possible L SVC w/dilated coronary sinus, evidence of chronic RV overload, normal LV/RVSF. cMRI 09/09: ostium secundum , L SVC w/dilated coronary sinus, RV dilation. -Cardiology consulted, appreciate recs -f/u Structural Cardiology recs Assessment & Plan (2024 11:45 AM CDT): #Ostium Secundum ASD #L SVC w/dilated coronary sinus -P/w NT-proBNP 920 -No clear HF history documented -incomplete date: TTE 05/2023: EF 52%, severe biatrial enlargement, mild LVH, mild MR -He denies orthopnea/extremity swelling, dyspnea on exertion -TTE 09/08: ostium secundum ASD, possible L SVC w/dilated coronary sinus, evidence of chronic RV overload, normal LV/RVSF -Cardiology consulted, appreciate recs -cMRI 09/09: ostium secundum , L SVC w/dilated coronary sinus, RV dilation -f/u Structural Cardiology recs Assessment & Plan (09/10/2024 1:50 PM CDT): #Ostium Secundum ASD #L SVC w/dilated coronary sinus -P/w NT-proBNP 920 -No clear HF history documented -incomplete date: TTE 05/2023: EF 52%, severe biatrial enlargement, mild LVH, mild MR -He denies orthopnea/extremity swelling, dyspnea on exertion -TTE 09/08: ostium secundum ASD, possible L SVC w/dilated coronary sinus, evidence of chronic RV overload, normal LV/RVSF -Cardiology consulted, appreciate recs -cMRI 09/09: ostium secundum , L SVC w/dilated coronary sinus, RV dilation -f/u cardiology recs Assessment & Plan (09/09/2024 11:43 AM CDT): -P/w NT-proBNP 920 -No clear HF history documented -incomplete date: TTE 05/2023: EF 52%, severe biatrial enlargement, mild LVH, mild MR -He denies orthopnea/extremity swelling, dyspnea on exertion -TTE 09/08: ostium secundum ASD, possible L SVC w/dilated coronary sinus, evidence of chronic RV overload, normal LV/RVSF -Cardiology consulted, appreciate recs -Patient refusing RHC, he is hesitant about cMRI given restlessness/anxiety and abdominal discomfort -planning to give ativan prior to MRI to facilitate imaging Assessment & Plan (09/08/2024 10:24 AM CDT): -P/w NT-proBNP 920 -No clear HF history documented -incomplete date: TTE 05/2023: EF 52%, severe biatrial enlargement, mild LVH, mild MR -He denies orthopnea/extremity swelling, dyspnea on exertion -f/u TTE Assessment & Plan (09/07/2024 11:07 AM CDT): -P/w NT-proBNP 920 -No clear HF history documented -incomplete date: TTE 05/2023: EF 52%, severe biatrial enlargement, mild LVH, mild MR -He denies orthopnea/extremity swelling, dyspnea on exertion -f/u TTE Assessment & Plan (09/06/2024 12:46 PM CDT): -P/w NT-proBNP 920 -No clear HF history documented -incomplete date: TTE 05/2023: EF 52%, revere biatrial enlargement, mild LVH, mild MR -He denies orthopnea/extremity swelling, dyspnea on exertion -TTE Difficulty urinating 09/06/2024 Assessment & Plan (09/17/2024 11:15 AM CDT): Patient endorsed difficulty urinating, especially w/ stopping and starting. Despite ongoing constipation, patient continues to void, bladder scans <400cc, no evidence of ABBIE. -Continue flomax 0.4mg qHS -d/c on flomax .4mg qHS Assessment & Plan (09/16/2024 11:12 AM CDT): Patient endorsed difficulty urinating, especially w/ stopping and starting. Despite ongoing constipation, patient continues to void, bladder scans <400cc, no evidence of ABBIE. -Continue flomax 0.4mg qHS Assessment & Plan (09/15/2024 10:07 AM CDT): Patient endorsed difficulty urinating, especially w/ stopping and starting. Despite ongoing constipation, patient continues to void, bladder scans <400cc, no evidence of ABBIE. -Continue flomax 0.4mg qHS Assessment & Plan (09/14/2024 12:41 PM CDT): Patient endorsed difficulty urinating, especially w/ stopping and starting. Despite ongoing constipation, patient continues to void, bladder scans <400cc, no evidence of ABBIE. -Continue flomax 0.4mg qHS Assessment & Plan (09/13/2024 8:57 AM CDT): Patient endorsed difficulty urinating, especially w/ stopping and starting. Despite ongoing constipation, patient continues to void, bladder scans <400cc, no evidence of ABBIE. -Continue flomax 0.4mg qHS Assessment & Plan (09/12/2024 3:32 PM CDT): Patient endorsed difficulty urinating, especially w/ stopping and starting. Despite ongoing constipation, patient continues to void, bladder scans <400cc, no evidence of ABBIE. -Continue flomax 0.4mg qHS Assessment & Plan (2024 1:25 PM CDT): -Patient endorsing difficulty urinating, especially w/ stopping and starting -despite ongoing constipation, patient continues to void, bladder scans <400cc, no evidence of ABBIE -flomax .4mg qHS Assessment & Plan (09/10/2024 1:13 PM CDT): -Patient endorsing difficulty urinating, especially w/ stopping and starting -Distended bladder on CT -chart history of flomax, not currently taking -despite ongoing constipation, patient continues to void, bladder scans <400cc, no evidence of ABBIE -flomax .4mg qHS Assessment & Plan (09/09/2024 11:43 AM CDT): -Patient endorsing difficulty urinating, especially w/ stopping and starting -Distended bladder on CT -chart history of flomax, not currently taking -despite ongoing constipation, patient continues to void, bladder scans <400cc, no evidence of ABBIE -flomax .4mg qHS -d/c bladder scans Assessment & Plan (09/08/2024 10:24 AM CDT): -Patient endorsing difficulty urinating, especially w/ stopping and starting -Distended bladder on CT -chart history of flomax, not currently taking -Unclear etiology and timing of patient difficulty urinating, he continues to void albeit with difficulty, no evidence of ABBIE on labs, giving patient history of constipation seemingly coinciding with increased difficulty urinating suspect possibly related -bowel regimen as above -q6hr bladder scan, currently refusing catheterization -Patient has continued to void and BUN/Cr without evidence of injury that would be c/f retention -flomax .4mg qHS Assessment & Plan (09/07/2024 11:07 AM CDT): -Patient endorsing difficulty urinating, especially w/ stopping and starting -Distended bladder on CT -chart history of flomax, not currently taking -Unclear etiology and timing of patient difficulty urinating, he continues to void albeit with difficulty, no evidence of ABBIE on labs, giving patient history of constipation seemingly coinciding with increased difficulty urinating suspect possibly related -bowel regimen as above -q6hr bladder scan, currently refusing catheterization -flomax .4mg qHS Assessment & Plan (09/06/2024 1:34 PM CDT): -Patient endorsing difficulty urinating, especially w/ stopping and starting -Distended bladder on CT -chart history of flomax, not currently taking -Unclear etiology and timing of patient difficulty urinating, he continues to void albeit with difficulty, no evidence of ABBIE on labs, giving patient history of constipation seemingly coinciding with increased difficulty urinating suspect possibly related -bowel regimen as above -q6hr bladder scan, currently refusing catheterization -flomax .4mg qHS Abdominal discomfort 09/06/2024 Assessment & Plan (09/17/2024 9:02 AM CDT): Patient endorsed at least 1 week constipation on admission. Denied nausea/vomiting, did note decreasing PO tolerance 2/2 pain. CTAP with evidence of stool burden. TSH 2.14. Have attempted q2 lactulose, fleet/soap enema, milk of mag, 1L golytely. 09/09 disimpaction attempted without stool in rectum appreciated. KUB with small stool burden in right hemicolon. Patient tolerating PO, abdominal pain stable. 1L watery stool on 09/10, and large BM on 09/11. Cardiac findings are likely contributing to abdominal pain. -bM x1 09/16 s/p magnesium citrate -encourage PO and OOB ambulation Assessment & Plan (09/16/2024 11:12 AM CDT): Patient endorsed at least 1 week constipation on admission. Denied nausea/vomiting, did note decreasing PO tolerance 2/2 pain. CTAP with evidence of stool burden. TSH 2.14. Have attempted q2 lactulose, fleet/soap enema, milk of mag, 1L golytely. 09/09 disimpaction attempted without stool in rectum appreciated. KUB with small stool burden in right hemicolon. Patient tolerating PO, abdominal pain stable. 1L watery stool on 09/10, and large BM on 09/11. Cardiac findings are likely contributing to abdominal pain. -continue miralax/senna BID -encourage PO and OOB ambulation Assessment & Plan (09/15/2024 10:07 AM CDT): Patient endorsed at least 1 week constipation on admission. Denied nausea/vomiting, did note decreasing PO tolerance 2/2 pain. CTAP with evidence of stool burden. TSH 2.14. Have attempted q2 lactulose, fleet/soap enema, milk of mag, 1L golytely. 09/09 disimpaction attempted without stool in rectum appreciated. KUB with small stool burden in right hemicolon. Patient tolerating PO, abdominal pain stable. 1L watery stool on 09/10, and large BM on 09/11. Cardiac findings are likely contributing to abdominal pain. -continue miralax/senna BID -encourage PO and OOB ambulation Assessment & Plan (09/14/2024 12:41 PM CDT): Patient endorsed at least 1 week constipation on admission. Denied nausea/vomiting, did note decreasing PO tolerance 2/2 pain. CTAP with evidence of stool burden. TSH 2.14. Have attempted q2 lactulose, fleet/soap enema, milk of mag, 1L golytely. 09/09 disimpaction attempted without stool in rectum appreciated. KUB with small stool burden in right hemicolon. Patient tolerating PO, abdominal pain stable. 1L watery stool on 09/10, and large BM on 09/11. Cardiac findings are likely contributing to abdominal pain. -continue miralax/senna BID -encourage PO and OOB ambulation Assessment & Plan (09/13/2024 8:57 AM CDT): Patient endorsed at least 1 week constipation on admission. Denied nausea/vomiting, did note decreasing PO tolerance 2/2 pain. CTAP with evidence of stool burden. TSH 2.14. Have attempted q2 lactulose, fleet/soap enema, milk of mag, 1L golytely. 09/09 disimpaction attempted without stool in rectum appreciated. KUB with small stool burden in right hemicolon. Patient tolerating PO, abdominal pain stable. 1L watery stool on 09/10, and large BM on 09/11. Cardiac findings are likely contributing to abdominal pain. -continue miralax/senna BID -encourage PO and OOB ambulation Assessment & Plan (09/12/2024 3:32 PM CDT): Patient endorsed at least 1 week constipation on admission. Denied nausea/vomiting, did note decreasing PO tolerance 2/2 pain. CTAP with evidence of stool burden. TSH 2.14. Have attempted q2 lactulose, fleet/soap enema, milk of mag, 1L golytely. 09/09 disimpaction attempted without stool in rectum appreciated. KUB with small stool burden in right hemicolon. Patient tolerating PO, abdominal pain stable. 1L watery stool on 09/10, and large BM on 09/11. Cardiac findings are likely contributing to abdominal pain. -continue miralax/senna BID -encourage PO and OOB ambulation Assessment & Plan (09/10/2024 12:05 PM CDT): -Patient complaining of few weeks of worsening abdominal discomfort -Located in left abdomen, non radiating -Constipation x1 week, denies n/v, passing flatus -Patient with worsening abdominal pain suspected possibly 2/2 constipation given location and history -CTAP was negative for acute process, w/evidence of stool burden in colon -tylenol 1g q6hr -bowel regimen as above in constipation Assessment & Plan (09/09/2024 11:43 AM CDT): -Patient complaining of few weeks of worsening abdominal discomfort -Located in left abdomen, non radiating -Constipation x1 week, denies n/v, passing flatus -Patient with worsening abdominal pain suspected possibly 2/2 constipation given location and history -CTAP was negative for acute process, w/evidence of stool burden in colon -tylenol 1g q6hr -bowel regimen as above in constipation Assessment & Plan (09/08/2024 10:24 AM CDT): -Patient complaining of few weeks of worsening abdominal discomfort -Located in left abdomen, non radiating -Constipation x1 week, denies n/v, passing flatus -Patient with worsening abdominal pain suspected possibly 2/2 constipation given location and history -CTAP was negative for acute process, w/evidence of stool burden in colon -tylenol 1g q6hr -bowel regimen as above in constipation Assessment & Plan (09/07/2024 11:07 AM CDT): -Patient complaining of few weeks of worsening abdominal discomfort -Located in left abdomen, non radiating -Constipation x1 week, denies n/v, passing flatus -Patient with worsening abdominal pain suspected possibly 2/2 constipation given location and history -CTAP was negative for acute process, w/evidence of stool burden in colon -tylenol 1g q6hr, d/c oxy -bowel regimen as above in constipation Assessment & Plan (09/06/2024 1:34 PM CDT): -Patient complaining of few weeks of worsening abdominal discomfort -Located in left abdomen, non radiating -Constipation x1 week, denies n/v, passing flatus -Patient with worsening abdominal pain suspected possibly 2/2 constipation given location and history -CTAP was negative for acute process, w/evidence of stool burden in colon -tylenol 1g q6hr, PRN oxy 5mg q4hr -bowel regimen as above in constipation Benzodiazepine withdrawal 06/29/2024 Assessment & Plan (06/30/2024 [...] Paroxysmal atrial fibrillation 05/14/2020 Assessment & Plan (09/17/2024 11:15 AM CDT): Afib on eliquis, has not been taking for a few weeks 2/2 bruising. Presents in afib w/RVR to HR 120s, subsequently self resolved now with normal HR in NSR. Chart history of metoprolol 50mg XL qdaily, patient not currently taking. Runs of afib/NSVT suspected to be possibly related to cardiac findings on TTE with R heart abnormalities related to ostium secundum ASD. -D/c on metoprolol 50mg XL qdaily, anticoagulation/antiplatelet as below Assessment & Plan (09/16/2024 11:12 AM CDT): Afib on eliquis, has not been taking for a few weeks 2/2 bruising. Presents in afib w/RVR to HR 120s, subsequently self resolved now with normal HR in NSR. Chart history of metoprolol 50mg XL qdaily, patient not currently taking. Runs of afib/NSVT suspected to be possibly related to cardiac findings on TTE with R heart abnormalities related to ostium secundum ASD. -Restart eliquis and consolidate metoprolol vs other recommendations per Cardiology Assessment & Plan (09/15/2024 10:07 AM CDT): Afib on eliquis, has not been taking for a few weeks 2/2 bruising. Presents in afib w/RVR to HR 120s, subsequently self resolved now with normal HR in NSR. Chart history of metoprolol 50mg XL qdaily, patient not currently taking. Runs of afib/NSVT suspected to be possibly related to cardiac findings on TTE with R heart abnormalities related to ostium secundum ASD. -Restart eliquis and consolidate metoprolol vs other recommendations per Cardiology Assessment & Plan (09/14/2024 12:59 PM CDT): Afib on eliquis, has not been taking for a few weeks 2/2 bruising. Presents in afib w/RVR to HR 120s, subsequently self resolved now with normal HR in NSR. Chart history of metoprolol 50mg XL qdaily, patient not currently taking. Runs of afib/NSVT suspected to be possibly related to cardiac findings on TTE with R heart abnormalities related to ostium secundum ASD. -metoprolol 12.5mg BID with hold parameters for HR and BP -consider consolidation following procedure tomorrow pending Cardiology recs Assessment & Plan (09/13/2024 8:57 AM CDT): Afib on eliquis, has not been taking for a few weeks 2/2 bruising. Presents in afib w/RVR to HR 120s, subsequently self resolved now with normal HR in NSR. Chart history of metoprolol 50mg XL qdaily, patient not currently taking. Runs of afib/NSVT suspected to be possibly related to cardiac findings on TTE with R heart abnormalities related to ostium secundum ASD. -metoprolol 12.5mg BID with hold parameters for HR and BP Assessment & Plan (09/12/2024 3:32 PM CDT): Afib on eliquis, has not been taking for a few weeks 2/2 bruising. Presents in afib w/RVR to HR 120s, subsequently self resolved now with normal HR in NSR. Chart history of metoprolol 50mg XL qdaily, patient not currently taking. Runs of afib/NSVT suspected to be possibly related to cardiac findings on TTE with R heart abnormalities related to ostium secundum ASD. -metoprolol 12.5mg BID with hold parameters for HR and BP Assessment & Plan (06/30/2024 12:14 PM CDT): Eliquis, metoprolol on rate control. F/u with PCP. Essential hypertension 05/14/2020 Resolved Problems Problem Noted Date Diagnosed Date Resolved Date Shortness of breath 09/06/2024 09/11/19 25 Assessment & Plan (09/10/2024 1:50 PM CDT): -Reported history of COPD, patient denies smoking history, no PFTs filed, chart history of albuterol - not currently using -maintaining O2 sats on RA, unclear if positional, possible orthopnea component -CTPE negative for acute process -18am breathing comfortably Assessment & Plan (09/09/2024 11:43 AM CDT): -Reported history of COPD, patient denies smoking history, no PFTs filed, chart history of albuterol - not currently using -Lungs CTA b/l without rhonchi/rales/wheezing -RPP neg -maintaining O2 sats on RA, unclear if positional, possible orthopnea component -CTPE negative for acute process -6/17am breathing comfortably Assessment & Plan (09/08/2024 10:24 AM CDT): -Reported history of COPD, patient denies smoking history, no PFTs filed, chart history of albuterol - not currently using -Lungs CTA b/l without rhonchi/rales/wheezing -RPP neg -maintaining O2 sats on RA, unclear if positional, possible orthopnea component -CTPE negative for acute process -/16am breathing comfortably Assessment & Plan (09/07/2024 11:07 AM CDT): -Reported history of COPD, patient denies smoking history, no PFTs filed, chart history of albuterol - not currently using -Lungs CTA b/l without rhonchi/rales/wheezing -RPP neg -maintaining O2 sats on RA, unclear if positional, possible orthopnea component -CTPE negative for acute process -6/15am breathing comfortably Assessment & Plan (09/06/2024 12:46 PM CDT): -Reported history of COPD, patient denies smoking history, no PFTs filed, chart history of albuterol - not currently using -Lungs CTA b/l without rhonchi/rales/wheezing -RPP neg -maintaining O2 sats on RA, unclear if positional, possible orthopnea component -CTPE negative for acute process -In this patient with pattern of symptoms otherwise c/f possible HF component and no evidence of acute lung process on CT suspecting possible component of pulmonary hypertension or pulmonary edema, consider diuresis pending clinical course to assess treatment response BMI 27.0-27.9,adult 05/14/2020 11/27/19 21 Social History Tobacco Use Types Packs/Day Years Used Date Smoking Tobacco: Never Smokeless Tobacco: Never Tobacco Cessation:Counseling Given: Not Answered [facility] [employer] Answer Date Recorded In the past 12 months has e electric, gas, oil, or water [employer] threatened to shut off services in your [...] often do you attend chur ch or yazidi services? Never 09/09/2024 Do you belong to any clubs o r organizations such as congregational groups, unions, fraternal or athletic groups, or [...] any time in the past 12 [facility], were you homeless or living in a fdc (including now)? No 09/09/2024 Personal Safety Answer Date Recorded Have you ever been in or are you currently in a harmful physical or emotional relationship or is someone making you feel afraid or unsafe? Denies 09/15/2024 Sex and Gender Information Value Date Recorded Sex Assigned at Not on file Legal Sex Male 11:14 PM [employer]LE [employer] Gender Identity Not on file Sexual Orientation Not on file Last Filed Vital Signs Vital Sign Reading Time Taken Comments Blood Pressure 108/76 09/17/2024 8:12 AM CDT Pulse 94 09/17/2024 8:12 AM CDT Temperature 36.4 C (97.5 F) 09/17/2024 5:00 AM CDT Respiratory Rate 18 09/17/2024 8:12 AM CDT Oxygen Saturation 96% 09/17/2024 8:12 AM CDT Inhaled Oxygen Concentration - - Weight 54.9 kg (121 lb) 09/08/2024 4:23 PM CDT Height 165.1 cm (5' 5) 09/15/2024 10:55 AM CDT Body Mass Index 20.14 09/08/2024 4:23 PM CDT Plan of Treatment Not on file Medical Devices Implanted Type Area Material Handling Equipment [employer] Device Identifier Shelf Expiration Date Model / Serial / Lot [employer] Amplatzer 38mm 48-54mm 4mm 2 Disk Self Expandable Radiopaque Band Latex Free 9-Asd-038 - [id number] - [id number] Implanted:Qty: 1 on 09/15/2024 by Tin Calvert MD PhD at [facility] Septal Defect Closure Device N/A: Atrial Septal Defect [employer] 02/22/2029 9-ASD-038 / [id number] / [id number] [employer] System Closure Repair Femoral Artery Suture Mediated Perclose Prostyle 36862-57 - [id number] - [id number] Implanted:Qty: 1 on 09/15/2024 by Tin Calvert MD PhD at [facility] Vascular Closure Device Right: Femoral Vein [employer] 07/23/2026 59809-74 / [id number] / [id number] [employer] System Closure Repair Femoral Artery Suture Mediated Perclose Prostyle 32516-81 - [id number] - [id number] Implanted:Qty: 1 on 09/15/2024 by Tin Calvert MD PhD at [facility] Vascular Closure Device Left: Femoral Vein [employer] 07/23/2026 31540-24 / [id number] / [id number] [employer] Angio-Seal Vip 6fr Closere Device [id number] - [id number] - [id number] Implanted:Qty: 1 on 09/15/2024 by Tin Calvert MD PhD at [facility] Vascular Closure Device Left: Femoral Vein [employer] 05/19/2025 [id number] / [id number] / [id number] Procedures Procedure Name Priority Date/Time Associated Diagnosis Comments EGFR Routine 09/16/2024 9:30 PM CDT DIFFERENTIAL AUTO Routine 09/16/2024 9:3 0 PM CDT COMPREHENSIVE METABOLIC PANEL Routine 09/16/2024 9:30 PM CDT CBC WITH AUTO DIFFERENTIAL Routine 09/16/2024 9:30 PM CDT TRANSTHORACIC ECHO (TTE) LIMITED/FOLLOW UP W LTD DOPPLER/CF W CONTRAST W BUBBLE Pending Discharge 09/16/2024 12:21 PM CDT XR CHEST 1 VIEW ED Urgent/IP Urgent 09/16/2024 9:45 AM CDT COMPREHENSIVE METABOLIC PANEL STAT 09/15/2024 8:29 PM CDT EGFR STAT 09/15/2024 8:29 PM CDT DIFFERENTIAL AUTO Routine 09/15/2024 8:2 9 PM CDT BILIRUBIN, DIRECT STAT 09/15/2024 8:2 9 PM CDT PROTIME-INR Routine 09/15/2024 8:29 PM CDT CBC WITH AUTO DIFFERENTIAL Routine 09/15/2024 8:29 PM CDT XR CHEST 1 VIEW Pending Discharge 09/15/2024 5:53 PM CDT ATRIAL SEPTAL DEFECT CLOSURE Routine 09/15/2024 2:17 PM CDT ASD (atrial septal defect), ostium secundum POCT ACTIVATED CLOTTING TIME, LOW RANGE Routine 09/15/2024 2:01 PM CDT POCT OXYHEMOGLOBIN - DEVICE Routine 09/15/2024 1:23 PM CDT POCT OXYHEMOGLOBIN - DEVICE Routine 09/15/2024 1:23 PM CDT POCT ACTIVATED CLOTTING TIME, LOW RANGE Routine 09/15/2024 1:18 PM CDT POCT OXYHEMOGLOBIN - DEVICE Routine 09/15/2024 1:17 PM CDT POCT OXYHEMOGLOBIN - DEVICE Routine 09/15/2024 1:16 PM CDT POCT OXYHEMOGLOBIN - DEVICE Routine 09/15/2024 1:15 PM CDT POCT OXYHEMOGLOBIN - DEVICE Routine 09/15/2024 1:15 PM CDT POCT ACTIVATED CLOTTING TIME, LOW RANGE Routine 09/15/2024 1:14 PM CDT POCT OXYHEMOGLOBIN - DEVICE Routine 09/15/2024 1:13 PM CDT POCT OXYHEMOGLOBIN - DEVICE Routine 09/15/2024 1:11 PM CDT POCT OXYHEMOGLOBIN - DEVICE Routine 09/15/2024 1:10 PM CDT POCT OXYHEMOGLOBIN - DEVICE Routine 09/15/2024 1:09 PM CDT POCT OXYHEMOGLOBIN - DEVICE Routine 09/15/2024 1:08 PM CDT POCT OXYHEMOGLOBIN - DEVICE Routine 09/15/2024 1:07 PM CDT EGFR Routine 09/14/2024 8:25 PM CDT DIFFERENTIAL AUTO Routine 09/14/2024 8:2 5 PM CDT MAGNESIUM Routine 09/14/2024 8:25 PM CDT COMPREHENSIVE METABOLIC PANEL Routine 09/14/2024 8:25 PM CDT CBC WITH AUTO DIFFERENTIAL Routine 09/14/2024 8:25 PM CDT POCT GLUCOSE DEVICE Routine 09/14/2024 4 :32 PM CDT POCT GLUCOSE DEVICE Routine 09/13/2024 1 1:23 AM CDT EGFR Routine 09/12/2024 11:09 PM CDT DIFFERENTIAL AUTO Routine 09/12/2024 11: 09 PM CDT COMPREHENSIVE METABOLIC PANEL Routine 09/12/2024 11:09 PM CDT CBC WITH AUTO DIFFERENTIAL Routine 09/12/2024 11:09 PM CDT POCT GLUCOSE DEVICE Routine 09/12/2024 7 :27 AM CDT POCT GLUCOSE DEVICE Routine 09/12/2024 1 2:18 AM CDT EGFR Routine 2024 10:15 PM CDT DIFFERENTIAL AUTO Routine 2024 10: 15 PM CDT COMPREHENSIVE METABOLIC PANEL Routine 2024 10:15 PM CDT CBC WITH AUTO DIFFERENTIAL Routine 2024 10:15 PM CDT EGFR Routine 09/10/2024 9:17 PM CDT DIFFERENTIAL AUTO Routine 09/10/2024 9:1 7 PM CDT COMPREHENSIVE METABOLIC PANEL Routine 09/10/2024 9:17 PM CDT CBC WITH AUTO DIFFERENTIAL Routine 09/10/2024 9:17 PM CDT EGFR Routine 09/09/2024 8:51 PM CDT DIFFERENTIAL AUTO Routine 09/09/2024 8:5 1 PM CDT COMPREHENSIVE METABOLIC PANEL Routine 09/09/2024 8:51 PM CDT CBC WITH AUTO DIFFERENTIAL Routine 09/09/2024 8:51 PM CDT XR ABDOMEN AP 1 VIEW ED Urgent/IP Urgent 09/09/2024 6:22 PM CDT MRI CARDIAC M&FUNC W WO CONTRAST ED Urgent/IP Urgent 09/09/2024 4:30 PM CDT EGFR Routine 09/08/2024 9:37 PM CDT DIFFERENTIAL AUTO Routine 09/08/2024 9:3 7 PM CDT COMPREHENSIVE METABOLIC PANEL Routine 09/08/2024 9:37 PM CDT CBC WITH AUTO DIFFERENTIAL Routine 09/08/2024 9:37 PM CDT TRANSTHORACIC ECHO (TTE) COMPLETE W DOPPLER/CF W CONTRAST Routine 09/08/2024 10:20 AM CDT EGFR Timed 09/08/2024 5:08 AM CDT MAGNESIUM Timed 09/08/2024 5:08 AM CDT BASIC METABOLIC PANEL Timed 09/08/2024 5:08 AM CDT EGFR Routine 09/07/2024 10:41 PM CDT DIFFERENTIAL AUTO Routine 09/07/2024 10: 41 PM CDT TROPONIN I HIGH-SENSITIVITY 6-HOUR Timed 09/07/2024 10:41 PM CDT COMPREHENSIVE METABOLIC PANEL Routine 09/07/2024 10:41 PM CDT CBC WITH AUTO DIFFERENTIAL Routine 09/07/2024 10:41 PM CDT TROPONIN I HIGH-SENSITIVITY 4-HOUR Timed 09/07/2024 8:09 PM CDT TROPONIN I HIGH-SENSITIVITY 2-HOUR Timed 09/07/2024 5:58 PM CDT TROPONIN I HIGH-SENSITIVITY SERIES (BASELINE, 2HR, 4HR, 6HR) Timed 09/07/2024 3:37 PM CDT ECG 12-LEAD Routine 09/07/2024 2:16 PM CDT EGFR Routine 09/06/2024 9:47 PM CDT DIFFERENTIAL AUTO Routine 09/06/2024 9:4 7 PM CDT THYROID FUNCTION CASCADE Timed 09/06/2024 9:47 PM CDT PROTIME-INR Routine 09/06/2024 9:47 PM CDT COMPREHENSIVE METABOLIC PANEL Routine 09/06/2024 9:47 PM CDT CBC WITH AUTO DIFFERENTIAL Routine 09/06/2024 9:47 PM CDT ECG 12-LEAD Routine 09/06/2024 3:24 PM CDT LACTATE Timed 09/06/2024 2:26 PM CDT RESPIRATORY PATHOGEN PANEL STAT 09/06/2024 9:37 AM CDT URINALYSIS AND REFLEX TO MICROSCOPIC AND CULTURE STAT 09/06/2024 7:[address] ABDOMEN PELVIS W CONTRAST ED 09/06/2024 1:48 AM CDT TROPONIN I HIGH-SENSITIVITY 2-HOUR Timed 09/06/2024 12:54 AM CDT ECG 12-LEAD Routine 09/06/2024 12:[address] CHEST PE W CONTRAST ED 09/05/2024 11:29 PM CDT XR CHEST 1 VIEW ED 09/05/2024 11:00 PM CDT POC BLOOD GAS AND CHEMISTRIES, VENOUS Routine 09/05/2024 10:53 PM CDT BILIRUBIN, DIRECT STAT 09/05/2024 10: 51 PM CDT LIPASE STAT 09/05/2024 10:51 PM CDT EGFR STAT 09/05/2024 10:51 PM CDT CREATINE KINASE (CK), TOTAL STAT 09/05/2024 10:51 PM CDT MAGNESIUM STAT 09/05/2024 10:51 PM CDT DIFFERENTIAL AUTO STAT 09/05/2024 10: 51 PM CDT TROPONIN I HIGH-SENSITIVITY SERIES (BASELINE, 2HR, 4HR, 6HR) STAT 09/05/2024 10:51 PM CDT PRO B-TYPE NATRIURETIC PEPTIDE STAT 09/05/2024 10:51 PM CDT LACTATE STAT 09/05/2024 10:51 PM CDT D-DIMER, QUANTITATIVE STAT 09/05/2024 10:51 PM CDT COMPREHENSIVE METABOLIC PANEL STAT 09/05/2024 10:51 PM CDT CBC WITH AUTO DIFFERENTIAL STAT 09/05/2024 10:51 PM CDT ECG 12-LEAD STAT 09/05/2024 10:34 PM CDT HEPATITIS PANEL, ACUTE Routine 06/29/2024 11:13 AM CDT from Last 3 Months or Most Recently Relevant to Health Maintenance Results * eGFR (09/16/2024 9:30 PM CDT) eGFR 88 >=60 mL/min/1. 73 m2 Comment: Interpretive Data [...] interpretive data was last reviewed 2021. Blood 09/16/2024 9:30 PM CDT 09/16/2024 10:23 PM CDT us Christine Rossi MD LAB BLOOD ORDERABLES Final R esult [facility] Department [place] [address] * Differential, auto (09/16/2024 9:30 PM CDT) Neutrophil abs 3.60 1.50 - 6.50 K/cumm Imm gran abs 0.02 0.00 - 0.10 K/cumm [facility] Lymphocyte abs 1.89 0.80 - 3.30 K/cumm [facility] Monocyte abs 0.47 0.20 - 0.80 K/cumm [facility] Eosinophil abs 0.05 0.00 - 0.50 K/cumm [facility] Basophil abs 0.05 0.00 - 0.10 K/cumm [facility] Neutrophil pct 59.3 % [facility] Comment: Interpretive Data Percent cell count reference ranges are not reported, since discordance with absolute values may lead to misinterpretation of CBC data. Current Interpretive Data was last revised on 2017. Imm gran pct 0.3 % [facility] Comment: Interpretive Data Percent cell count reference ranges are not reported, since discordance with absolute values may lead to misinterpretation of CBC data. Current Interpretive Data was last revised on 2017. Lymphocyte pct 31.1 % [facility] Comment: Interpretive Data Percent cell count reference ranges are not reported, since discordance with absolute values may lead to misinterpretation of CBC data. Current Interpretive Data was last revised on 2017. Monocyte pct 7.7 % [facility] Comment: Interpretive Data Percent cell count reference ranges are not reported, since discordance with absolute values may lead to misinterpretation of CBC data. Current Interpretive Data was last revised on 2017. Eosinophil pct 0.8 % [facility] Comment: Interpretive Data Percent cell count reference ranges are not reported, since discordance with absolute values may lead to misinterpretation of CBC data. Current Interpretive Data was last revised on 2017. Basophil pct 0.8 % [facility] Comment: Interpretive Data Percent cell count reference ranges are not reported, since discordance with absolute values may lead to misinterpretation of CBC data. Current Interpretive Data was last revised on 2017. Blood 09/16/2024 9:30 PM CDT 09/16/2024 10:23 PM CDT us Christine Rossi MD LAB BLOOD ORDERABLES Final R esult [facility] Department [place] [address] * (ABNORMAL) CBC with auto differential (09/16/2024 9:30 PM CDT) [facility] WBC 6.08 3.80 - 9.90 K/cumm Hgb 13.2 13.0 - 17.5 g/dL [facility] Hct 37.9(L) 38.9 - 50.3 % [facility] Plt 173 150 - 400 K/cumm [facility] MPV 8.9(L) 9.1 - 12.3 fL [facility] RBC 4.11(L) 4.30 - 5.80 M/cumm [facility] MCV 92.2 81.3 - 96.4 fL [facility] MCH 32.1 27.1 - 33.3 pg [facility] MCHC 34.8 32.3 - 35.7 g/dL [facility] RDW CV 13.6 11.1 - 14.9 % [facility] RDW SD 46.1 35.7 - 48.1 fL [facility] NRBC abs 0.00 0.00 - 0.01 K/cumm [facility] Blood 09/16/2024 9:30 PM CDT 09/16/2024 10:23 PM CDT us Christine Rossi MD LAB BLOOD ORDERABLES Final R esult [facility] Department [place] [address] * (ABNORMAL) Comprehensive metabolic panel (09/16/2024 9:30 PM CDT) [facility] Sodium 139 135 - 145 mmol/L Potassium, pl 4.2 3.3 - 4.9 mmol/L [facility] Chloride 103 97 - 110 mmol/L [facility] CO2 28 22 - 32 mmol/L [facility] Anion gap 8 2 - 15 mmol/L [facility] BUN 17 6 - 25 mg/dL [facility] Creatinine 0.98 0.80 - 1.30 mg/dL [facility] Glucose 99 70 - 199 mg/dL [facility] Comment: Interpretive Data Fasting glucose >/= [...] interpretive data was last revised 2022. Calcium 9.1 8.5 - 10.3 mg/dL [facility] Bilirubin, total 0.7 0.1 - 1.2 mg/dL [facility] Protein, pl 6.4(L) 6.5 - 8.5 g/dL [facility] Albumin 4.0 3.5 - 5.0 g/dL [facility] Alk phos 50 40 - 130 Units/L [facility] ALT 34 7 - 55 Units/L [facility] AST 23 10 - 50 Units/L [facility] Blood 09/16/2024 9:30 PM CDT 09/16/2024 10:23 PM CDT us Christine Rossi MD LAB BLOOD ORDERABLES Final R esult [facility] Department [place] [address] * TRANSTHORACIC ECHO (TTE) LIMITED/FOLLOW UP W LTD DOPPLER/CF W CONTRAST W BUBBLE (09/16/2024 12:21 PM CDT) EF Mod BP 64 % CONS SCIMAGE Anatomical Region Laterality Modality Ultrasound 09/16/2024 11:1 5 AM CDT Narrative 09/16/2024 12:52 PM CDT [facility] [place] [address] Transthoracic Echocardiographic Report Patient Name: MIGUELITO LOPES : 1965 (59y ) Gender: M Study Date: 09/16/2024 11:15:35 AM Ht(Inch): 65 Wt(Lb): 121.03 BSA: 1.59 After School Counselor: Javi Marte ENA Location: [id number] Order Provider: GIULIA GALLAGHER Heart Rate: 81 BMI: 20.14 BP: 94 / 66 Ref Provider: GIULIA GALLAGHER PROCEDURES: Echocardiographic Report: Limited transthoracic 2D echo with contrast, includes spectral and tissue Doppler, color flow Doppler, and/or M-mode, when performed. Additional Procedures: Agitated saline bubble study. Myocardial strain imaging was performed. Contrast: Contrast Enhancement was Employed: After initial imaging due to sub- optimal quality related to co-morbidity defined by patient's body habitus. 1 ml Optison Administered, (2 ml wasted). INDICATIONS: S/p ASD closure, pending discharge. CONCLUSIONS: 1. Agitated saline bubble study is negative for intracardiac shunt at rest and post-Valsalva. An occlusion device (09/15/2024) is seen across the interatrial septum. Normal left ventricular size based on volume index. Concentric LV remodeling. Normal left ventricular systolic function. The Ejection Fraction (Fortune's) is measured at 64 %. The average global longitudinal strain is abnormal. 2. Right ventricular dilatation. Normal right ventricular systolic function. 3. Mild mitral valve prolapse involving the posterior mitral leaflet. 4. The estimated right ventricular systolic pressure is 25 mmHg. ATTESTATION: I have personally reviewed and interpreted this study without fellow or resident. - DISCLAIMER: The study images and the final report will be retained in the patient chart by the Echo Laboratory for the legally required time period. This chart constitutes the legal record of any testing performed. FINDINGS: Left Ventricle: Normal left ventricular size based on volume index. Concentric LV remodeling. Normal left ventricular systolic function. The Ejection Fraction (Fortune's) is measured at 64 %. The average global longitudinal strain is abnormal. The LV global strain is: -12.8 %. Right Ventricle: Right ventricular dilatation. RV dilation Moderate RV dilation. Normal right ventricular systolic function. Left Atrium: Severely dilated left atrium. Right Atrium: Right atrial dilatation. Dilated coronary sinus. Atrial Septum: Agitated saline bubble study is negative for intracardiac shunt at rest and post-Valsalva. An occlusion device is seen across the interatrial septum. s/p closure of Secundum Atrial Septyal Defect with Amplatzer (09/15/2024). Mitral Valve: Specific MV Structure Abnormalities: Mild mitral valve prolapse involving the posterior mitral leaflet. Aortic Valve: Normal trileaflet aortic valve. Aortic valve dimensionless index is 0.69. Tricuspid Valve: Normal Tricuspid valve structure. Mild tricuspid regurgitation. The estimated right ventricular systolic pressure is 25 mmHg. Pulmonic Valve: The pulmonic valve is not well visualized due to not visualized. Pericardium: No pericardial effusion. Aorta: Normal aortic root size at sinuses of Valsalva. Dilation of the aortic root when indexed. Dilation of the ascending aorta when indexed. Rhythm: The rhythm during the study was atrial fibrillation. MEASUREMENTS: 2D/MM Value Range Doppler Value Range LVIDd 2D 3.92 cm [ 4.20 - 5.80 ] AV Peak Jah 1.3 m/s [ 1.0 - 1.7 ] LVIDs 2D 2.53 cm [ 2.50 - 4.00 ] AV Peak PG 6.76 mmHg IVSd 2D 1.05 cm [ 0.60 - 1.00 ] AV Mean PG 4 mmHg LVPWd 2D 1.24 cm [ 0.60 - 1.00 ] AV VTI 23.4 cm LV Thickness Ratio 0.8 LVOT Peak Jah 1.0 m/s [ 0.7 - 1.1 ] LV FS 2D 35.56 % [ 25.00 - 43.00 ] LVOT Peak PG 4.00 mmHg LV Mass 2D 151.66 g LVOT Mean PG 2 mmHg LV Mass Index 2D 95.38 g/m2 LVOT VTI 16.1 cm RWT 0.63 LVOT Diam 2.28 cm EDV Mod BP 89.94 ml [ 62.00 - 150.00 ] MILADIS VTI 2.81 cm2 LV EDV Index 56.57 ml/m2 LVOT/AV VTI 0.69 - Dimensionless index (DVI) ESV Mod BP 32.49 ml [ 21.00 - 61.00 ] MV E Peak Jah 0.8 m/s [ 0.6 - 1.3 ] EF Mod BP 64 % [ 52 - 72 ] MV A Peak Jah 0.4 m/s [ 1.0 - 1.2 ] LV GLS -12.8 % [ -25.0 - -18.0 ] MV E/A 2.2 ratio [ 0.8 - 1.5 ] LA Length 4C 8.30 cm MV Decel Time 175.84 msec [ 104.00 - 258.00 ] LA Length 2C 7.30 cm Med E` Jah 12.5 cm/sec [ 8.0 - 25.0 ] LA Volume BP 119.69 ml Lat E` Jah 10.4 cm/sec [ 10.0 - 25.0 ] LA Volume Index 75.28 ml/m2 [ 16.00 - 34.00 ] Average E/E` 6.99 RV Base Dimen 2D 3.6 cm [ 2.5 - 4.2 ] RV S` 13.07 cm/sec TAPSE 2.23 cm [ 1.71 - 5.00 ] TR Peak Jah 2.5 m/s [ 1.0 - 2.8 ] RA Volume 120.96 ml TR Peak PG 25.0 mmHg RA Volume Index 76.08 ml/m2 AoR Diam 2D 3.26 cm [ 3.10 - 3.70 ] Ao Root Index 2.05 cm/m2 [ 1.00 - 2.00 ] Asc Ao Diam 2D 3.05 cm Asc Ao Index 1.92 cm/m2 Electronically Signed By: Binu Urban MD 09/16/2024 12:51:42 PM CDT Procedure Note Binu Urban MD - 09/16/2024 [facility] Cardiac [place] [address] Transthoracic Echocardiographic Report Patient Name: MIGUELITO LOPES : 1965 (59y ) Gender: M Study Date: 09/16/2024 11:15:35 AM Ht(Inch): 65 Wt(Lb): 121.03 BSA: 1.59 After School Counselor: Javi Marte RDCS Location: [id number] Order Provider: GIULIA GALLAGHER Heart Rate: 81 BMI: 20.14 BP: 94 / 66 Ref Provider:GIULIA GALLAGHER PROCEDURES: Echocardiographic Report: Limited transthoracic 2D echo with contrast,includes spectral and tissue Doppler, color flow Doppler, and/or M-mode, when performed. Additional Procedures: Agitated saline bubble study. Myocardial strainimaging was performed. Contrast: Contrast Enhancement was Employed: After initial imaging due tosub- optimal quality related to co-morbidity defined by patient's body habitus. 1 mlOptison Administered, (2 ml wasted). INDICATIONS: S/p ASD closure, pending discharge. CONCLUSIONS: 1. Agitated saline bubble study is negative for intracardiac shunt at restand post-Valsalva. An occlusion device (09/15/2024) is seen across theinteratrial septum. Normal left ventricular size based on volume index. Concentric LVremodeling. Normal left ventricular systolic function. The Ejection Fraction (Fortune's) ismeasured at 64 %. The average global longitudinal strain is abnormal. 2. Right ventricular dilatation. Normal right ventricular systolicfunction. 3. Mild mitral valve prolapse involving the posterior mitral leaflet. 4. The estimated right ventricular systolic pressure is 25 mmHg. ATTESTATION: I have personally reviewed and interpreted this study without fellow orresident. - DISCLAIMER: The study images and the final report will be retained in the patientchart by the Echo Laboratory for the legally required time period. This chart constitutesthe legal record of any testing performed. FINDINGS: Left Ventricle: Normal left ventricular size based on volume index.Concentric LV remodeling. Normal left ventricular systolic function. The EjectionFraction (Fortune's) is measured at 64 %. The average global longitudinal strain is abnormal.The LV global strain is: -12.8 %. Right Ventricle: Right ventricular dilatation. RV dilation Moderate RVdilation. Normal right ventricular systolic function. Left Atrium: Severely dilated left atrium. Right Atrium: Right atrial dilatation. Dilated coronary sinus. Atrial Septum: Agitated saline bubble study is negative for intracardiacshunt at rest and post-Valsalva. An occlusion device is seen across the interatrialseptum. s/p closure of Secundum Atrial Septyal Defect with Amplatzer (09/15/2024). Mitral Valve: Specific MV Structure Abnormalities: Mild mitral valveprolapse involving the posterior mitral leaflet. Aortic Valve: Normal trileaflet aortic valve. Aortic valve dimensionlessindex is 0.69. Tricuspid Valve: Normal Tricuspid valve structure. Mild tricuspidregurgitation. The estimated right ventricular systolic pressure is 25 mmHg. Pulmonic Valve: The pulmonic valve is not well visualized due to notvisualized. Pericardium: No pericardial effusion. Aorta: Normal aortic root size at sinuses of Valsalva. Dilation of theaortic root when indexed. Dilation of the ascending aorta when indexed. Rhythm: The rhythm during the study was atrial fibrillation. MEASUREMENTS: 2D/MM Value Range DopplerValue Range LVIDd 2D 3.92 cm [ 4.20 - 5.80 ] AV Peak Vel1.3 m/s [ 1.0 - 1.7 ] LVIDs 2D 2.53 cm [ 2.50 - 4.00 ] AV Peak PG6.76 mmHg IVSd 2D 1.05 cm [ 0.60 - 1.00 ] AV Mean PG4 mmHg LVPWd 2D 1.24 cm [ 0.60 - 1.00 ] AV VTI23.4 cm LV Thickness Ratio 0.8 LVOT Peak Vel1.0 m/s [ 0.7 - 1.1 ] LV FS 2D 35.56 % [ 25.00 - 43.00 ] LVOT Peak PG4.00 mmHg LV Mass 2D 151.66 g LVOT Mean PG2 mmHg LV Mass Index 2D 95.38 g/m2 LVOT VTI16.1 cm RWT 0.63 LVOT Diam2.28 cm EDV Mod BP 89.94 ml [ 62.00 - 150.00 ] MILADIS VTI2.81 cm2 LV EDV Index 56.57 ml/m2 LVOT/AV VTI0.69 - Dimensionless index (DVI) ESV Mod BP 32.49 ml [ 21.00 - 61.00 ] MV E Peak Vel0.8 m/s [ 0.6 - 1.3 ] EF Mod BP 64 % [ 52 - 72 ] MV A Peak Vel0.4 m/s [ 1.0 - 1.2 ] LV GLS -12.8 % [ -25.0 - -18.0 ] MV E/A2.2 ratio [ 0.8 - 1.5 ] LA Length 4C 8.30 cm MV Decel Mzjn634.84 msec [ 104.00 - 258.00 ] LA Length 2C 7.30 cm Med E` Vel12.5 cm/sec [ 8.0 - 25.0 ] LA Volume BP 119.69 ml Lat E` Vel10.4 cm/sec [ 10.0 - 25.0 ] LA Volume Index 75.28 ml/m2 [ 16.00 - 34.00 ] Average E/E`6.99 RV Base Dimen 2D 3.6 cm [ 2.5 - 4.2 ] RV S`13.07 cm/sec TAPSE 2.23 cm [ 1.71 - 5.00 ] TR Peak Vel2.5 m/s [ 1.0 - 2.8 ] RA Volume 120.96 ml TR Peak PG25.0 mmHg RA Volume Index76.08 ml/m2 AoR Diam 2D 3.26 cm [ 3.10 - 3.70 ] Ao Root Index 2.05 cm/m2 [ 1.00 - 2.00 ] Asc Ao Diam 2D3.05 cm Asc Ao Index1.92 cm/m2 Electronically Signed By: Binu Urban MD 09/16/2024 12:51:42 PM CDT Giulia Gallagher NP CV ECHO PROCEDURES Fin al Result * XR Chest 1 View (09/16/2024 9:45 AM CDT) Anatomical Region Laterality Modality Body, Chest N/A Computed Radiogr aphy 09/16/2024 10:3 6 AM CDT Impressions 09/16/2024 11:22 AM CDT The current study is compared with the prior radiograph dated 09/15/2024. Atrial septal closure device in place. No pleural effusion or pneumothorax. No pulmonary consolidation. Unchanged enlargement of the cardiac silhouette. Dictated by: Vito Cortes MD The radiology attending physician has personally reviewed this study, and had reviewed and/or edited this written report and agrees with it. Electronically signed by: Keiry Munoz M.D. Narrative 09/16/2024 11:22 AM CDT EXAMINATION: 1 view chest radiograph Procedure Note Keiry Munoz MD - 09/16/2024 EXAMINATION: 1 view chest radiograph IMPRESSION: The current study is compared with the prior radiograph dated 09/15/2024. Atrial septal closure device in place. No pleural effusion or pneumothorax. No pulmonary consolidation. Unchanged enlargement of the cardiac silhouette. Dictated by: Vito Cortes MD The radiology attending physician has personally reviewed this study, and had reviewed and/or edited this written report and agrees with it. Electronically signed by: Keiry Munoz M.D. Vince Jacome MD IMG XR PROCEDURES Final Res ult * eGFR (09/15/2024 8:29 PM CDT) eGFR >90 >=60 mL/min/1. 73 m2 Comment: Interpretive Data [...] interpretive data was last reviewed 2021. Blood 09/15/2024 8:29 PM CDT 09/15/2024 9:58 PM CDT us Vince Jacome MD LAB BLOOD ORDERABLES Final Result [facility] [place] [address] * Differential, auto (09/15/2024 8:29 PM CDT) Neutrophil abs 4.26 1.50 - 6.50 K/cumm Imm gran abs 0.01 0.00 - 0.10 K/cumm [facility] Lymphocyte abs 1.51 0.80 - 3.30 K/cumm [facility] Monocyte abs 0.32 0.20 - 0.80 K/cumm [facility] Eosinophil abs 0.01 0.00 - 0.50 K/cumm [facility] Basophil abs 0.04 0.00 - 0.10 K/cumm [facility] Neutrophil pct 69.1 % [facility] Comment: Interpretive Data Percent cell count reference ranges are not reported, since discordance with absolute values may lead to misinterpretation of CBC data. Current Interpretive Data was last revised on 2017. Imm gran pct 0.2 % [facility] Comment: Interpretive Data Percent cell count reference ranges are not reported, since discordance with absolute values may lead to misinterpretation of CBC data. Current Interpretive Data was last revised on 2017. Lymphocyte pct 24.6 % [facility] Comment: Interpretive Data Percent cell count reference ranges are not reported, since discordance with absolute values may lead to misinterpretation of CBC data. Current Interpretive Data was last revised on 2017. Monocyte pct 5.2 % [facility] Comment: Interpretive Data Percent cell count reference ranges are not reported, since discordance with absolute values may lead to misinterpretation of CBC data. Current Interpretive Data was last revised on 2017. Eosinophil pct 0.2 % [facility] Comment: Interpretive Data Percent cell count reference ranges are not reported, since discordance with absolute values may lead to misinterpretation of CBC data. Current Interpretive Data was last revised on 2017. Basophil pct 0.7 % [facility] Comment: Interpretive Data Percent cell count reference ranges are not reported, since discordance with absolute values may lead to misinterpretation of CBC data. Current Interpretive Data was last revised on 2017. Blood 09/15/2024 8:29 PM CDT 09/15/2024 10:00 PM CDT us Christine Rossi MD LAB BLOOD ORDERABLES Final R esult [facility] [place] [address] * (ABNORMAL) CBC with auto differential (09/15/2024 8:29 PM CDT) WBC 6.15 3.80 - 9.90 K/cumm Hgb 13.1 13.0 - 17.5 g/dL [facility] Hct 36.6(L) 38.9 - 50.3 % [facility] Plt 181 150 - 400 K/cumm [facility] MPV 9.3 9.1 - 12.3 fL [facility] RBC 4.06(L) 4.30 - 5.80 M/cumm [facility] MCV 90.1 81.3 - 96.4 fL [facility] MCH 32.3 27.1 - 33.3 pg [facility] MCHC 35.8(H) 32.3 - 35.7 g/dL [facility] RDW CV 13.5 11.1 - 14.9 % [facility] RDW SD 44.7 35.7 - 48.1 fL [facility] NRBC abs 0.00 0.00 - 0.01 K/cumm [facility] Blood 09/15/2024 8:29 PM CDT 09/15/2024 10:00 PM CDT Christine Rossi MD LAB BLOOD ORDERABLES Final R esult Performing Organization Address [facility] de Phone Number [facility] [employer] [place] [address] * Protime-INR (09/15/2024 8:29 PM CDT) PT 12.2 9.7 - 13.0 sec INR 1.13 0.90 - 1.20 [facility] Comment: Interpretive data Oral anticoagulant therapeutic ranges: Venous thromboembolism prophylaxis or treatment: 2.0-3.0 CARDIOLOGY Standard range: 2.0-3.0 High-intensity range: 2.5-3.5 Refer to indication-specific guidelines for appropriate target ranges for prosthetic heart valve replacement. Current interpretive data was last revised on 2019. Blood 09/15/2024 8:29 PM CDT 09/15/2024 9:55 PM CDT us Christine Rossi MD LAB BLOOD ORDERABLES Final R esult Performing Organization Address [facility] Co de Phone Number [facility] [place] [address] * (ABNORMAL) Bilirubin, direct (09/15/2024 8:29 PM CDT) Bilirubin, direct 0.4(H) 0.1 - 0.3 mg/dL Blood 09/15/2024 8:29 PM CDT 09/15/2024 9:58 PM CDT us Vince Jacome MD LAB BLOOD ORDERABLES Final Result [facility] [place] [address] * (ABNORMAL) Comprehensive metabolic panel (09/15/2024 8:29 PM CDT) Sodium 139 135 - 145 mmol/L Potassium, pl 3.5 3.3 - 4.9 mmol/L [facility] Chloride 105 97 - 110 mmol/L [facility] CO2 25 22 - 32 mmol/L [facility] Anion gap 9 2 - 15 mmol/L [facility] BUN 17 6 - 25 mg/dL [facility] Creatinine 0.93 0.80 - 1.30 mg/dL [facility] Glucose 191 70 - 199 mg/dL [facility] Comment: Interpretive Data Fasting glucose >/= [...] classification and Diagnosis of Diabetes Diabetes Care 202; 46: S19-S40. Current interpretive data was last revised 2022. Calcium 8.6 8.5 - 10.3 mg/dL [facility] Bilirubin, total 1.2 0.1 - 1.2 mg/dL [facility] Protein, pl 6.0(L) 6.5 - 8.5 g/dL [facility] Albumin 3.6 3.5 - 5.0 g/dL [facility] Alk phos 47 40 - 130 Units/L [facility] ALT 37 7 - 55 Units/L [facility] AST 23 10 - 50 Units/L [facility] Blood 09/15/2024 8:29 PM CDT 09/15/2024 9:58 PM CDT us Vince Jaocme MD LAB BLOOD ORDERABLES Final Result [facility] Department [place] [address] * XR Chest 1 View (09/15/2024 5:53 PM CDT) Anatomical Region Laterality Modality Body, Chest N/A Digital Radiogra phy 09/16/2024 8:16 AM CDT Impressions 09/16/2024 8:16 AM CDT Comparison is made to prior chest radiograph dated 09/05/2024. There is an atrial septal occluder device. Mild bibasilar atelectasis. No pleural effusion. No pneumothorax. Heart size is normal. Electronically signed by: Jewels Barrett M.D. Narrative 09/16/2024 8:16 AM CDT EXAMINATION: 1 view chest radiograph Procedure Note Jewels Barrett MD - 09/16/2024 EXAMINATION: 1 view chest radiograph IMPRESSION: Comparison is made to prior chest radiograph dated 09/05/2024. There is an atrial septal occluder device. Mild bibasilar atelectasis. No pleural effusion. No pneumothorax. Heart size is normal. Electronically signed by: Jewels Barrett M.D. Giulia Gallagher [employer] IMG XR PROCEDURES Grace l Result * ATRIAL SEPTAL DEFECT CLOSURE (09/15/2024 2:17 PM CDT) Anatomical Region Laterality Modality X-Ray Angiograph y Narrative 09/15/2024 3:02 PM CDT ASD closure Interventional fellow: Dr. Cr Cosby HPI: 59-year-old male with a history of atrial fibrillation, weight loss, shortness of breath and a secundum atrial septal defect now referred for right heart catheterization and possible ASD closure. Patient has had a recent MRI and CT scan noting no evidence of pulmonary embolism but a dilated right heart with 3 cm secundum atrial septal defect and persistent left-sided SVC. The estimated shunt ratio is over 3-1. Transthoracic echo reveals normal left and right ventricular function was markedly dilated right side, no pulmonary hypertension and a similar shunt ratio. He has been referred for intracardiac echo, right heart catheterization and potential closure. Procedure: The patient is prepped and draped in sterile fashion. 1% local lidocaine anesthesia was utilized. Fentanyl and Versed were used as premedication. Optiray was used as a contrast agent. Aspirin was given preprocedure along with antibiotic prophylaxis. Plavix 600 mg was administered postprocedure. Using ultrasound directed micropuncture technique and 8 [place] 25 cm sheath inserted into the left femoral vein using percutaneous approach. A 12 [place] cook sheath inserted into the right femoral vein using percutaneous approach. Two 6 [place] pro glides were placed prior to sheath insertion. Heparin was administered to maintain ACT of 300 seconds or greater. A balloon tip Arrow catheter was advanced to the right pulmonary artery for O2 saturations and hemodynamics. Imaging was performed via the left femoral vein with a 8 [place]ian [employer] intracardiac echo system. The interatrial septum was readily crossed with a 1.5 mm J-tip Amplatzer wire and a multipurpose catheter this was exchanged for a 34 mm sizing balloon. Sizing balloon was exchanged for a 12 [place] torque view sheath. 38 mm Amplatzer ASD occluder was deployed after multiple attempts across the interatrial septum. Upon completion of the case the 12 [place]ian right venous sheath was removed and a Perclose system cinched. The 8 [place] sheath in the left femoral vein was removed with some bleeding that required an additional 6 [place] Angio-Seal to be deployed. Manual compression was also utilized to maintain hemostasis. There were no other complications. Hemodynamics: RA is 4, RV 26/4, PA is 31/14, pulmonary wedge pressure was not obtained but the left atrial pressure was 12 mm of mercury. O2 saturation: SVC is 67 IVC is 68, RV 81, right pulmonary artery is 81, left pulmonary vein is 90%. The proximal QP QS is 3:1. A VO2 was 185.3 mL/min. Cardiac output is 3.94 L/min with a cardiac index of 2.47 L/min per m2 by [place]. Intracardiac ECHO and ASD sizing and closure: Intracardiac ECHO reveals normal left ventricular function without regional wall motion abnormalities. The right ventricle and right atrium are markedly enlarged. There is a least mild RV dysfunction. There is no pericardial effusion. The mitral, tricuspid, aortic and pulmonic valves are flexible without stenosis or vegetation. There is minimal regurgitation associated with each. Pulmonary veins come in the usual location. There is a large atrial septal defect of the secundum type. There appears to be adequate rims in the anterior, posterior inferior and superior regions. Static dimensions are 20-24 mm. 34 mm sizing balloon was advanced across the interatrial septum and inflated until there is no evidence of [id number] flow by intra cardiac echo Doppler. Both the fluoroscopic and echo images registered diameter occlusive at 36-37 mm. As result of 38 mm device was chosen. A 38 mm Amplatzer ASD occluder was deployed in the left atrium several times and torqued until it could be withdrawn perpendicular to the atrial septal defect. Right side was subsequently deployed. There was clear capture of the anterior and superior rims. It was more difficult to visualize the inferior posterior limbs because of the small floppy tissue. Multiple push-pull attempts were made with excellent securement of the device. There was no encroachment on the pulmonary veins for mitral valve. The device was subsequently detached stable for 20 minutes. A 70 degree STATELESS projection shows adequate splay anteriorly and compression inferiorly as expected with secure attachment.. Overall impression: 1. Successful closure of large secundum atrial septal defect with 38 mm Amplatzer ASD occluder. 2. No significant pulmonary hypertension. 3. Persistent atrial fibrillation. 4. Persistent left-sided SVC. 5. Dilated right heart. 6. 30-40 lb weight loss over the past year. 7. Abdominal discomfort and constipation. Therapy recommendations: The patient will be bed rest this evening started ambulating tomorrow. Chest x-ray obtained today and tomorrow as well as a full transthoracic echo tomorrow. Plavix should continue for 2 weeks, aspirin indefinitely and Eliquis indefinitely starting tomorrow. SBE precautions should be followed for the next 1-2 years. Patient should be cautioned against any physical activity for the next 3 weeks including lifting more than 5-10 lb, significant walking, exercising etc. giving the slightly higher than usual risk of embolization with the large device. Follow-up transthoracic echo should be followed in 2-3 months. Christine Rossi MD CV CARDIAC CATH PROCEDURES F inal Result * (ABNORMAL) POCT Activated clotting time, low range (09/15/2024 2:01 PM CDT) Pathologist [facility] ACT 266(H) 123 - 168 sec POC Performer [id number] [facility] POC Device Number [id number] [facility] Blood 09/15/2024 2:01 PM CDT 09/15/2024 2:01 PM CDT Vince Jacome MD LAB POCT ORDERABLES - DEVIC E Final Result Performing Organization Address [facility] Co de Phone Number [facility] [place] [employer] [place] [place] [address] * POCT oxyhemoglobin (09/15/2024 1:23 PM CDT) [facility] PUBLIC RELATIONS Oxyhemoglobin 86.3 >=65.0 % PUBLIC RELATIONS Hemoglobin 13.2 13.0 - 17.5 g/dL [facility] PUBLIC RELATIONS O2 content 15.9 15.0 - 22.0 Vol % [facility] Anatomic Site aPOC Pulm Artery [facility] Blood 09/15/2024 1:23 PM CDT 09/15/2024 1:23 PM CDT Vince Jacome MD LAB POCT ORDERABLES - DEVIC E Final Result Performing Organization Address City/[facility] Co de Phone Number [facility] [place] [employer] [place] [address] * POCT oxyhemoglobin (09/15/2024 1:23 PM CDT) [facility] PUBLIC RELATIONS Oxyhemoglobin 88.2 >=65.0 % PUBLIC RELATIONS Hemoglobin 13.3 13.0 - 17.5 g/dL [facility] PUBLIC RELATIONS O2 content 16.3 15.0 - 22.0 Vol % [facility] Anatomic Site aPOC Pulm Artery [facility] Blood 09/15/2024 1:23 PM CDT 09/15/2024 1:23 PM CDT Vince Jacome MD LAB POCT ORDERABLES - DEVIC E Final Result Performing Organization Address City/[facility]/ZIP Co de Phone Number [facility] [employer] [place] [address] * (ABNORMAL) POCT Activated clotting time, low range (09/15/2024 1:18 PM CDT) ACT 287(H) 123 - 168 sec POC Performer [id number] [facility] POC Device Number [id number] [facility] Blood 09/15/2024 1:18 PM CDT 09/15/2024 1:18 PM CDT Vince Jacome MD LAB POCT ORDERABLES - DEVIC E Final Result Performing Organization Address City/[facility]/[place] [address] * POCT oxyhemoglobin (09/15/2024 1:17 PM CDT) PUBLIC RELATIONS Oxyhemoglobin 88.0 >=65.0 % PUBLIC RELATIONS Hemoglobin 13.5 13.0 - 17.5 g/dL [facility] PUBLIC RELATIONS O2 content 16.5 15.0 - 22.0 Vol % [facility] Anatomic Site aPOC Pulmonary Vein [facility] Blood 09/15/2024 1:17 PM CDT 09/15/2024 1:17 PM CDT Vince Jacome MD LAB POCT ORDERABLES - DEVIC E Final Result Performing Organization Address City/[facility]/ZIP Co de Phone Number [facility] [employer] [place] [address] * POCT oxyhemoglobin (09/15/2024 1:16 PM CDT) PUBLIC RELATIONS Oxyhemoglobin 89.9 >=65.0 % PUBLIC RELATIONS Hemoglobin 13.3 13.0 - 17.5 g/dL [facility] PUBLIC RELATIONS O2 content 16.7 15.0 - 22.0 Vol % [facility] Anatomic Site aPOC Pulmonary Vein [facility] Blood 09/15/2024 1:16 PM CDT 09/15/2024 1:16 PM CDT Vince Jacome MD LAB POCT ORDERABLES - DEVIC E Final Result Performing Organization Address [facility]/ZIP Co de Phone Number [facility] [place] [employer] [place] [address] * (ABNORMAL) POCT oxyhemoglobin (09/15/2024 1:15 PM CDT) Pathologist [facility] PUBLIC RELATIONS Oxyhemoglobin 81.5 >=65.0 % PUBLIC RELATIONS Hemoglobin 13.2 13.0 - 17.5 g/dL [facility] PUBLIC RELATIONS O2 content 14.9(L) 15.0 - 22.0 Vol % [facility] Anatomic Site aPOC Ventricle right [facility] Blood 09/15/2024 1:15 PM CDT 09/15/2024 1:15 PM CDT Vince Jacome MD LAB POCT ORDERABLES - DEVIC E Final Result [facility] [place] [employer] [place] [address] * POCT oxyhemoglobin (09/15/2024 1:15 PM CDT) PUBLIC RELATIONS Oxyhemoglobin 81.9 >=65.0 % PUBLIC RELATIONS Hemoglobin 13.3 13.0 - 17.5 g/dL [facility] PUBLIC RELATIONS O2 content 15.1 15.0 - 22.0 Vol % [facility] Anatomic Site aPOC Ventricle right [facility] Blood 09/15/2024 1:15 PM CDT 09/15/2024 1:15 PM CDT Vince Jacome MD LAB POCT ORDERABLES - DEVIC E Final Result Performing Organization Address [facility] Co de Phone Number [facility] [employer] [place] [address] * (ABNORMAL) POCT Activated clotting time, low range (09/15/2024 1:14 PM CDT) ACT 232(H) 123 - 168 sec POC Performer [id number] [facility] POC Device Number [id number] [facility] Blood 09/15/2024 1:14 PM CDT 09/15/2024 1:14 PM CDT Vince Jacome MD LAB POCT ORDERABLES - DEVIC E Final Result Performing Organization Address [facility] [place] [address] * (ABNORMAL) POCT oxyhemoglobin (09/15/2024 1:13 PM CDT) Pathologist [facility] PUBLIC RELATIONS Oxyhemoglobin 67.1 >=65.0 % PUBLIC RELATIONS Hemoglobin 12.6(L) 13.0 - 17.5 g/dL [facility] PUBLIC RELATIONS O2 content 11.8(L) 15.0 - 22.0 Vol % [facility] Anatomic Site aPOC Sup Vena Cava [facility] Blood 09/15/2024 1:13 PM CDT 09/15/2024 1:13 PM CDT Vince Jacome MD LAB POCT ORDERABLES - DEVIC E Final Result Performing Organization Address City/[facility] Co de Phone Number [facility] [employer] [place] [address] * (ABNORMAL) POCT oxyhemoglobin (09/15/2024 1:11 PM CDT) PUBLIC RELATIONS Oxyhemoglobin 64.7(L) >=65.0 % PUBLIC RELATIONS Hemoglobin 12.9(L) 13.0 - 17.5 g/dL [facility] PUBLIC RELATIONS O2 content 11.6(L) 15.0 - 22.0 Vol % [facility] Anatomic Site aPOC Sup Vena Cava [facility] Blood 09/15/2024 1:11 PM CDT 09/15/2024 1:11 PM CDT Vince Jacome MD LAB POCT ORDERABLES - DEVIC E Final Result Performing Organization Address [facility]/ZIP Co de Phone Number [facility] [employer] [place] [address] * (ABNORMAL) POCT oxyhemoglobin (09/15/2024 1:10 PM CDT) PUBLIC RELATIONS Oxyhemoglobin 75.8 >=65.0 % PUBLIC RELATIONS Hemoglobin 13.0 13.0 - 17.5 g/dL [facility] PUBLIC RELATIONS O2 content 13.7(L) 15.0 - 22.0 Vol % [facility] Anatomic Site aPOC Atrium Right [facility] Blood 09/15/2024 1:10 PM CDT 09/15/2024 1:10 PM CDT Vince Jacome MD LAB POCT ORDERABLES - DEVIC E Final Result [facility] [employer] [place] [address] * (ABNORMAL) POCT oxyhemoglobin (09/15/2024 1:09 PM CDT) PUBLIC RELATIONS Oxyhemoglobin 79.4 >=65.0 % PUBLIC RELATIONS Hemoglobin 13.4 13.0 - 17.5 g/dL [facility] PUBLIC RELATIONS O2 content 14.8(L) 15.0 - 22.0 Vol % [facility] Anatomic Site aPOC Atrium Right [facility] Blood 09/15/2024 1:09 PM CDT 09/15/2024 1:09 PM CDT Vince Jacome MD LAB POCT ORDERABLES - DEVIC E Final Result Performing Organization Address [facility] de Phone Number [facility] [place] [employer] [place] [address] * (ABNORMAL) POCT oxyhemoglobin (09/15/2024 1:08 PM CDT) PUBLIC RELATIONS Oxyhemoglobin 64.2(L) >=65.0 % PUBLIC RELATIONS Hemoglobin 13.2 13.0 - 17.5 g/dL [facility] PUBLIC RELATIONS O2 content 11.8(L) 15.0 - 22.0 Vol % [facility] Anatomic Site aPOC Inf Vena Cava [facility] Blood 09/15/2024 1:08 PM CDT 09/15/2024 1:08 PM CDT Vince Jacome MD LAB POCT ORDERABLES - DEVIC E Final Result Performing Organization Address [facility] de Phone Number [facility] [employer] [place] [address] * (ABNORMAL) POCT oxyhemoglobin (09/15/2024 1:07 PM CDT) PUBLIC RELATIONS Oxyhemoglobin 67.0 >=65.0 % PUBLIC RELATIONS Hemoglobin 13.3 13.0 - 17.5 g/dL [facility] PUBLIC RELATIONS O2 content 12.4(L) 15.0 - 22.0 Vol % [facility] Anatomic Site aPOC Inf Vena Cava [facility] Blood 09/15/2024 1:07 PM CDT 09/15/2024 1:07 PM CDT us Vince Jacome MD LAB POCT ORDERABLES - DEVIC E Final Result Performing Organization Address [facility] Co de Phone Number [facility] [place] [address] * eGFR (09/14/2024 8:25 PM CDT) eGFR 89 >=60 mL/min/1. 73 m2 Comment: Interpretive Data [...] interpretive data was last reviewed 2021. Blood 09/14/2024 8:25 PM CDT 09/14/2024 8:44 PM CDT us Christine Rossi MD LAB BLOOD ORDERABLES Final R esult Performing Organization Address City/[facility] Co de Phone Number [facility] [place] [address] * Differential, auto (09/14/2024 8:25 PM CDT) Neutrophil abs 4.05 1.50 - 6.50 K/cumm Imm gran abs 0.02 0.00 - 0.10 K/cumm [facility] Lymphocyte abs 2.34 0.80 - 3.30 K/cumm [facility] Monocyte abs 0.37 0.20 - 0.80 K/cumm [facility] Eosinophil abs 0.02 0.00 - 0.50 K/cumm [facility] Basophil abs 0.06 0.00 - 0.10 K/cumm [facility] Neutrophil pct 59.0 % [facility] Comment: Interpretive Data Percent cell count reference ranges are not reported, since discordance with absolute values may lead to misinterpretation of CBC data. Current Interpretive Data was last revised on 2017. Imm gran pct 0.3 % [facility] Comment: Interpretive Data Percent cell count reference ranges are not reported, since discordance with absolute values may lead to misinterpretation of CBC data. Current Interpretive Data was last revised on 2017. Lymphocyte pct 34.1 % [facility] Comment: Interpretive Data Percent cell count reference ranges are not reported, since discordance with absolute values may lead to misinterpretation of CBC data. Current Interpretive Data was last revised on 2017. Monocyte pct 5.4 % [facility] Comment: Interpretive Data Percent cell count reference ranges are not reported, since discordance with absolute values may lead to misinterpretation of CBC data. Current Interpretive Data was last revised on 2017. Eosinophil pct 0.3 % [facility] Comment: Interpretive Data Percent cell count reference ranges are not reported, since discordance with absolute values may lead to misinterpretation of CBC data. Current Interpretive Data was last revised on 2017. Basophil pct 0.9 % [facility] Comment: Interpretive Data Percent cell count reference ranges are not reported, since discordance with absolute values may lead to misinterpretation of CBC data. Current Interpretive Data was last revised on 2017. Blood 09/14/2024 8:25 PM CDT 09/14/2024 8:44 PM CDT us Christine Rossi MD LAB BLOOD ORDERABLES Final R esult [facility] Department [place] [address] * (ABNORMAL) CBC with auto differential (09/14/2024 8:25 PM CDT) [facility] WBC 6.86 3.80 - 9.90 K/cumm Hgb 15.7 13.0 - 17.5 g/dL [facility] Hct 44.7 38.9 - 50.3 % [facility] Plt 196 150 - 400 K/cumm [facility] MPV 8.5(L) 9.1 - 12.3 fL [facility] RBC 4.88 4.30 - 5.80 M/cumm [facility] MCV 91.6 81.3 - 96.4 fL [facility] MCH 32.2 27.1 - 33.3 pg [facility] MCHC 35.1 32.3 - 35.7 g/dL [facility] RDW CV 13.5 11.1 - 14.9 % [facility] RDW SD 45.4 35.7 - 48.1 fL [facility] NRBC abs 0.00 0.00 - 0.01 K/cumm [facility] Blood 09/14/2024 8:25 PM CDT 09/14/2024 8:44 PM CDT us Christine Rossi MD LAB BLOOD ORDERABLES Final R esult Performing Organization Address City/[facility] Co de Phone Number [facility] Department of [employer] [place] [place] [address] * Magnesium (09/14/2024 8:25 PM CDT) [facility] Magnesium 2.4 1.4 - 2.5 mg/dL Blood 09/14/2024 8:25 PM CDT 09/14/2024 8:44 PM CDT us Christine Rossi MD LAB BLOOD ORDERABLES Final R esult Performing Organization Address City/[facility]/ZIP Co de Phone Number [facility] [place] [employer] [place] [address] * (ABNORMAL) Comprehensive metabolic panel (09/14/2024 8:25 PM CDT) Sodium 141 135 - 145 mmol/L Potassium, pl 4.2 3.3 - 4.9 mmol/L [facility] Chloride 104 97 - 110 mmol/L [facility] CO2 28 22 - 32 mmol/L [facility] Anion gap 9 2 - 15 mmol/L [facility] BUN 12 6 - 25 mg/dL [facility] Creatinine 0.97 0.80 - 1.30 mg/dL [facility] Glucose 98 70 - 199 mg/dL [facility] Comment: Interpretive Data Fasting glucose >/= [...] interpretive data was last revised 2022. Calcium 9.5 8.5 - 10.3 mg/dL [facility] Bilirubin, total 1.3(H) 0.1 - 1.2 mg/dL [facility] Protein, pl 6.9 6.5 - 8.5 g/dL [facility] Albumin 4.4 3.5 - 5.0 g/dL [facility] Alk phos 56 40 - 130 Units/L [facility] ALT 51 7 - 55 Units/L [facility] AST 24 10 - 50 Units/L [facility] Blood 09/14/2024 8:25 PM CDT 09/14/2024 8:44 PM CDT us Christine Rossi MD LAB BLOOD ORDERABLES Final R esult [facility] Department [place] [address] * POCT glucose (09/14/2024 4:32 PM CDT) Glucose, POC 113 70 - 199 mg/dL Blood 09/14/2024 4:32 PM CDT 09/14/2024 4:32 PM CDT us Christine Rossi MD LAB POCT ORDERABLES - DEVICE Final Result Performing Organization Address City/[facility] Co de Phone Number [facility] [place] [address] * POCT glucose (09/13/2024 11:23 AM CDT) Glucose, POC 78 70 - 199 mg/dL Blood 09/13/2024 11:2 3 AM CDT 09/13/2024 11:23 AM CDT us Christine Rossi MD LAB POCT ORDERABLES - DEVICE Final Result Performing Organization Address [facility] de Phone Number [facility] Department [place] [address] * eGFR (09/12/2024 11:09 PM CDT) eGFR >90 >=60 mL/min/1. 73 m2 Comment: Interpretive Data [...] interpretive data was last reviewed 2021. Blood 09/12/2024 11:0 9 PM CDT 09/13/2024 12:25 AM CDT us Christine Rossi MD LAB BLOOD ORDERABLES Final R esult [facility] [place] [address] * Differential, auto (09/12/2024 11:09 PM CDT) Neutrophil abs 3.73 1.50 - 6.50 K/cumm Imm gran abs 0.03 0.00 - 0.10 K/cumm [facility] Lymphocyte abs 2.85 0.80 - 3.30 K/cumm [facility] Monocyte abs 0.38 0.20 - 0.80 K/cumm [facility] Eosinophil abs 0.05 0.00 - 0.50 K/cumm [facility] Basophil abs 0.06 0.00 - 0.10 K/cumm [facility] Neutrophil pct 52.6 % [facility] Comment: Interpretive Data Percent cell count reference ranges are not reported, since discordance with absolute values may lead to misinterpretation of CBC data. Current Interpretive Data was last revised on 2017. Imm gran pct 0.4 % [facility] Comment: Interpretive Data Percent cell count reference ranges are not reported, since discordance with absolute values may lead to misinterpretation of CBC data. Current Interpretive Data was last revised on 2017. Lymphocyte pct 40.1 % [facility] Comment: Interpretive Data Percent cell count reference ranges are not reported, since discordance with absolute values may lead to misinterpretation of CBC data. Current Interpretive Data was last revised on 2017. Monocyte pct 5.4 % [facility] Comment: Interpretive Data Percent cell count reference ranges are not reported, since discordance with absolute values may lead to misinterpretation of CBC data. Current Interpretive Data was last revised on 2017. Eosinophil pct 0.7 % [facility] Comment: Interpretive Data Percent cell count reference ranges are not reported, since discordance with absolute values may lead to misinterpretation of CBC data. Current Interpretive Data was last revised on 2017. Basophil pct 0.8 % [facility] Comment: Interpretive Data Percent cell count reference ranges are not reported, since discordance with absolute values may lead to misinterpretation of CBC data. Current Interpretive Data was last revised on 2017. Blood 09/12/2024 11:0 9 PM CDT 09/13/2024 12:27 AM CDT us Christine Rossi MD LAB BLOOD ORDERABLES Final R esult [facility] [place] [address] * CBC with auto differential (09/12/2024 11:09 PM CDT) WBC 7.10 3.80 - 9.90 K/cumm Hgb 14.7 13.0 - 17.5 g/dL [facility] Hct 42.0 38.9 - 50.3 % [facility] Plt 166 150 - 400 K/cumm [facility] MPV 9.1 9.1 - 12.3 fL [facility] RBC 4.57 4.30 - 5.80 M/cumm [facility] MCV 91.9 81.3 - 96.4 fL [facility] MCH 32.2 27.1 - 33.3 pg [facility] MCHC 35.0 32.3 - 35.7 g/dL [facility] RDW CV 13.6 11.1 - 14.9 % [facility] RDW SD 46.3 35.7 - 48.1 fL [facility] NRBC abs 0.00 0.00 - 0.01 K/cumm [facility] Blood 09/12/2024 11:0 9 PM CDT 09/13/2024 12:27 AM CDT us Christine Rossi MD LAB BLOOD ORDERABLES Final R esult Performing Organization Address City/[facility]/ZIP Co de Phone Number [facility] [place] [address] * (ABNORMAL) Comprehensive metabolic panel (09/12/2024 11:09 PM CDT) Sodium 142 135 - 145 mmol/L Potassium, pl 4.4 3.3 - 4.9 mmol/L [facility] Comment:Hemolyzed; Potassium value may be falsely elevated by as much as 0.3-0.5 mmol/L. Suggest redraw and reanalysis. Chloride 107 97 - 110 mmol/L [facility] CO2 27 22 - 32 mmol/L [facility] Anion gap 8 2 - 15 mmol/L [facility] BUN 13 6 - 25 mg/dL [facility] Creatinine 0.94 0.80 - 1.30 mg/dL [facility] Glucose 91 70 - 199 mg/dL [facility] Comment: Interpretive Data Fasting glucose >/= [...] interpretive data was last revised 2022. Calcium 9.2 8.5 - 10.3 mg/dL [facility] Bilirubin, total 0.9 0.1 - 1.2 mg/dL [facility] Protein, pl 6.2(L) 6.5 - 8.5 g/dL [facility] Albumin 3.9 3.5 - 5.0 g/dL [facility] Alk phos 51 40 - 130 Units/L [facility] ALT 48 7 - 55 Units/L [facility] AST 34 10 - 50 Units/L [facility] Comment:Hemolyzed; result ma y be falsely elevated Blood 09/12/2024 11:0 9 PM CDT 09/13/2024 12:25 AM CDT Christine Rossi MD LAB BLOOD ORDERABLES Final R esult Performing Organization Address City/[facility]/ZIP Co de Phone Number [facility] [employer] [place] [address] * POCT glucose (09/12/2024 7:27 AM CDT) Glucose, POC 100 70 - 199 mg/dL Blood 09/12/2024 7:27 AM CDT 09/12/2024 7:27 AM CDT us Christine Rossi MD LAB POCT ORDERABLES - DEVICE Final Result Performing Organization Address [facility] Co de Phone Number [facility] [place] [employer] [place] [address] * POCT glucose (09/12/2024 12:18 AM CDT) Glucose, POC 108 70 - 199 mg/dL Blood 09/12/2024 12:1 8 AM CDT 09/12/2024 12:18 AM CDT us Christine Rossi MD LAB POCT ORDERABLES - DEVICE Final Result Performing Organization Address City/[facility] Co de Phone Number [facility] [place] [employer] [place] [address] * eGFR (2024 10:15 PM CDT) eGFR 90 >=60 mL/min/1. 73 m2 Comment: Interpretive Data [...] interpretive data was last reviewed 2021. Blood 2024 10:1 5 PM CDT 2024 11:40 PM CDT us Christine Rossi MD LAB BLOOD ORDERABLES Final R esult [facility] [place] [address] * Differential, auto (2024 10:15 PM CDT) Neutrophil abs 3.58 1.50 - 6.50 K/cumm Imm gran abs 0.02 0.00 - 0.10 K/cumm [facility] Lymphocyte abs 2.33 0.80 - 3.30 K/cumm [facility] Monocyte abs 0.46 0.20 - 0.80 K/cumm [facility] Eosinophil abs 0.03 0.00 - 0.50 K/cumm [facility] Basophil abs 0.06 0.00 - 0.10 K/cumm [facility] Neutrophil pct 55.2 % [facility] Comment: Interpretive Data Percent cell count reference ranges are not reported, since discordance with absolute values may lead to misinterpretation of CBC data. Current Interpretive Data was last revised on 2017. Imm gran pct 0.3 % [facility] Comment: Interpretive Data Percent cell count reference ranges are not reported, since discordance with absolute values may lead to misinterpretation of CBC data. Current Interpretive Data was last revised on 2017. Lymphocyte pct 36.0 % [facility] Comment: Interpretive Data Percent cell count reference ranges are not reported, since discordance with absolute values may lead to misinterpretation of CBC data. Current Interpretive Data was last revised on 2017. Monocyte pct 7.1 % [facility] Comment: Interpretive Data Percent cell count reference ranges are not reported, since discordance with absolute values may lead to misinterpretation of CBC data. Current Interpretive Data was last revised on 2017. Eosinophil pct 0.5 % [facility] Comment: Interpretive Data Percent cell count reference ranges are not reported, since discordance with absolute values may lead to misinterpretation of CBC data. Current Interpretive Data was last revised on 2017. Basophil pct 0.9 % [facility] Comment: Interpretive Data Percent cell count reference ranges are not reported, since discordance with absolute values may lead to misinterpretation of CBC data. Current Interpretive Data was last revised on 2017. Blood 2024 10:1 5 PM CDT 2024 11:41 PM CDT us Christine Rossi MD LAB BLOOD ORDERABLES Final R esult [facility] [place] [address] * (ABNORMAL) CBC with auto differential (2024 10:15 PM CDT) WBC 6.48 3.80 - 9.90 K/cumm Hgb 13.6 13.0 - 17.5 g/dL [facility] Hct 39.5 38.9 - 50.3 % [facility] Plt 184 150 - 400 K/cumm [facility] MPV 9.4 9.1 - 12.3 fL [facility] RBC 4.29(L) 4.30 - 5.80 M/cumm [facility] MCV 92.1 81.3 - 96.4 fL [facility] MCH 31.7 27.1 - 33.3 pg [facility] MCHC 34.4 32.3 - 35.7 g/dL [facility] RDW CV 13.7 11.1 - 14.9 % [facility] RDW SD 46.2 35.7 - 48.1 fL [facility] NRBC abs 0.00 0.00 - 0.01 K/cumm [facility] Blood 2024 10:1 5 PM CDT 2024 11:41 PM CDT us Christine Rossi MD LAB BLOOD ORDERABLES Final R esult [facility] [place] [address] * (ABNORMAL) Comprehensive metabolic panel (2024 10:15 PM CDT) Sodium 146(H) 135 - 145 mmol/L Potassium, pl 3.9 3.3 - 4.9 mmol/L [facility] Chloride 108 97 - 110 mmol/L [facility] CO2 28 22 - 32 mmol/L [facility] Anion gap 10 2 - 15 mmol/L [facility] BUN 13 6 - 25 mg/dL [facility] Creatinine 0.96 0.80 - 1.30 mg/dL [facility] Glucose 58(L) 70 - 199 mg/dL [facility] Comment: Interpretive Data Fasting glucose >/= [...] classification and Diagnosis of Diabetes Diabetes Care 202; 46: S19-S40. Current interpretive data was last revised 2022. Calcium 9.3 8.5 - 10.3 mg/dL [facility] Bilirubin, total 0.7 0.1 - 1.2 mg/dL [facility] Protein, pl 6.0(L) 6.5 - 8.5 g/dL [facility] Albumin 3.7 3.5 - 5.0 g/dL [facility] Alk phos 49 40 - 130 Units/L [facility] ALT 55 7 - 55 Units/L [facility] AST 37 10 - 50 Units/L [facility] Blood 2024 10:1 5 PM CDT 2024 11:40 PM CDT Christine Rossi MD LAB BLOOD ORDERABLES Final R esult Performing Organization Address [facility] Co de Phone Number [facility] [place] [employer] [place] [address] * eGFR (09/10/2024 9:17 PM CDT) eGFR 90 >=60 mL/min/1. 73 m2 Comment: Interpretive Data [...] interpretive data was last reviewed 2021. Blood 09/10/2024 9:17 PM CDT 09/10/2024 10:19 PM CDT us Christine Rossi MD LAB BLOOD ORDERABLES Final R esult Performing Organization Address City/[facility]/ZIP Co de Phone Number [facility] Department [place] [employer] [place] [address] * Differential, auto (09/10/2024 9:17 PM CDT) Neutrophil abs 4.30 1.50 - 6.50 K/cumm Imm gran abs 0.03 0.00 - 0.10 K/cumm [facility] Lymphocyte abs 2.30 0.80 - 3.30 K/cumm [facility] Monocyte abs 0.46 0.20 - 0.80 K/cumm [facility] Eosinophil abs 0.04 0.00 - 0.50 K/cumm [facility] Basophil abs 0.08 0.00 - 0.10 K/cumm [facility] Neutrophil pct 59.6 % [facility] Comment: Interpretive Data Percent cell count reference ranges are not reported, since discordance with absolute values may lead to misinterpretation of CBC data. Current Interpretive Data was last revised on 2017. Imm gran pct 0.4 % [facility] Comment: Interpretive Data Percent cell count reference ranges are not reported, since discordance with absolute values may lead to misinterpretation of CBC data. Current Interpretive Data was last revised on 2017. Lymphocyte pct 31.9 % [facility] Comment: Interpretive Data Percent cell count reference ranges are not reported, since discordance with absolute values may lead to misinterpretation of CBC data. Current Interpretive Data was last revised on 2017. Monocyte pct 6.4 % [facility] Comment: Interpretive Data Percent cell count reference ranges are not reported, since discordance with absolute values may lead to misinterpretation of CBC data. Current Interpretive Data was last revised on 2017. Eosinophil pct 0.6 % [facility] Comment: Interpretive Data Percent cell count reference ranges are not reported, since discordance with absolute values may lead to misinterpretation of CBC data. Current Interpretive Data was last revised on 2017. Basophil pct 1.1 % [facility] Comment: Interpretive Data Percent cell count reference ranges are not reported, since discordance with absolute values may lead to misinterpretation of CBC data. Current Interpretive Data was last revised on 2017. Blood 09/10/2024 9:17 PM CDT 09/10/2024 9:49 PM CDT us Christine Rossi MD LAB BLOOD ORDERABLES Final R esult [facility] [place] [address] * (ABNORMAL) CBC with auto differential (09/10/2024 9:17 PM CDT) [facility] WBC 7.21 3.80 - 9.90 K/cumm Hgb 12.8(L) 13.0 - 17.5 g/dL [facility] Hct 35.5(L) 38.9 - 50.3 % [facility] Plt 158 150 - 400 K/cumm [facility] MPV 9.2 9.1 - 12.3 fL [facility] RBC 3.90(L) 4.30 - 5.80 M/cumm [facility] MCV 91.0 81.3 - 96.4 fL [facility] MCH 32.8 27.1 - 33.3 pg [facility] MCHC 36.1(H) 32.3 - 35.7 g/dL [facility] RDW CV 13.6 11.1 - 14.9 % [facility] RDW SD 45.1 35.7 - 48.1 fL [facility] NRBC abs 0.00 0.00 - 0.01 K/cumm [facility] Blood 09/10/2024 9:17 PM CDT 09/10/2024 9:49 PM CDT us Christine Rossi MD LAB BLOOD ORDERABLES Final R esult [facility] [place] [address] * (ABNORMAL) Comprehensive metabolic panel (09/10/2024 9:17 PM CDT) [facility] Sodium 139 135 - 145 mmol/L Potassium, pl 4.2 3.3 - 4.9 mmol/L [facility] Chloride 104 97 - 110 mmol/L [facility] CO2 26 22 - 32 mmol/L [facility] Anion gap 9 2 - 15 mmol/L [facility] BUN 13 6 - 25 mg/dL [facility] Creatinine 0.97 0.80 - 1.30 mg/dL [facility] Glucose 101 70 - 199 mg/dL [facility] Comment: Interpretive Data Fasting glucose >/= [...] classification and Diagnosis of Diabetes Diabetes Care 202; 46: S19-S40. Current interpretive data was last revised 2022. Calcium 8.9 8.5 - 10.3 mg/dL [facility] Bilirubin, total 0.6 0.1 - 1.2 mg/dL [facility] Protein, pl 6.1(L) 6.5 - 8.5 g/dL [facility] Albumin 3.7 3.5 - 5.0 g/dL [facility] Alk phos 48 40 - 130 Units/L [facility] ALT 46 7 - 55 Units/L [facility] AST 44 10 - 50 Units/L [facility] Blood 09/10/2024 9:17 PM CDT 09/10/2024 9:47 PM CDT us Christine Rossi MD LAB BLOOD ORDERABLES Final R esult [facility] [place] [address] * eGFR (09/09/2024 8:51 PM CDT) eGFR >90 >=60 mL/min/1. 73 m2 Comment: Interpretive Data [...] interpretive data was last reviewed 2021. Blood 09/09/2024 8:51 PM CDT 09/09/2024 9:27 PM CDT us Christine Rossi MD LAB BLOOD ORDERABLES Final R esult [facility] [place] [address] * Differential, auto (09/09/2024 8:51 PM CDT) Pathologist [facility] Neutrophil abs 4.72 1.50 - 6.50 K/cumm Imm gran abs 0.02 0.00 - 0.10 K/cumm [facility] Lymphocyte abs 2.31 0.80 - 3.30 K/cumm [facility] Monocyte abs 0.48 0.20 - 0.80 K/cumm [facility] Eosinophil abs 0.02 0.00 - 0.50 K/cumm [facility] Basophil abs 0.07 0.00 - 0.10 K/cumm [facility] Neutrophil pct 61.9 % [facility] Comment: Interpretive Data Percent cell count reference ranges are not reported, since discordance with absolute values may lead to misinterpretation of CBC data. Current Interpretive Data was last revised on 2017. Imm gran pct 0.3 % [facility] Comment: Interpretive Data Percent cell count reference ranges are not reported, since discordance with absolute values may lead to misinterpretation of CBC data. Current Interpretive Data was last revised on 2017. Lymphocyte pct 30.3 % [facility] Comment: Interpretive Data Percent cell count reference ranges are not reported, since discordance with absolute values may lead to misinterpretation of CBC data. Current Interpretive Data was last revised on 2017. Monocyte pct 6.3 % [facility] Comment: Interpretive Data Percent cell count reference ranges are not reported, since discordance with absolute values may lead to misinterpretation of CBC data. Current Interpretive Data was last revised on 2017. Eosinophil pct 0.3 % [facility] Comment: Interpretive Data Percent cell count reference ranges are not reported, since discordance with absolute values may lead to misinterpretation of CBC data. Current Interpretive Data was last revised on 2017. Basophil pct 0.9 % [facility] Comment: Interpretive Data Percent cell count reference ranges are not reported, since discordance with absolute values may lead to misinterpretation of CBC data. Current Interpretive Data was last revised on 2017. Blood 09/09/2024 8:51 PM CDT 09/09/2024 9:27 PM CDT us Christine Rossi MD LAB BLOOD ORDERABLES Final R esult [facility] [place] [address] * (ABNORMAL) CBC with auto differential (09/09/2024 8:51 PM CDT) WBC 7.62 3.80 - 9.90 K/cumm Hgb 15.4 13.0 - 17.5 g/dL [facility] Hct 43.9 38.9 - 50.3 % [facility] Plt 201 150 - 400 K/cumm [facility] MPV 8.9(L) 9.1 - 12.3 fL [facility] RBC 4.75 4.30 - 5.80 M/cumm [facility] MCV 92.4 81.3 - 96.4 fL [facility] MCH 32.4 27.1 - 33.3 pg [facility] MCHC 35.1 32.3 - 35.7 g/dL [facility] RDW CV 13.6 11.1 - 14.9 % [facility] RDW SD 46.1 35.7 - 48.1 fL [facility] NRBC abs 0.00 0.00 - 0.01 K/cumm [facility] Blood 09/09/2024 8:51 PM CDT 09/09/2024 9:27 PM CDT us Christine Rossi MD LAB BLOOD ORDERABLES Final R esult [facility] [place] [address] * Comprehensive metabolic panel (09/09/2024 8:51 PM CDT) Sodium 141 135 - 145 mmol/L Potassium, pl 3.7 3.3 - 4.9 mmol/L [facility] Chloride 104 97 - 110 mmol/L [facility] CO2 25 22 - 32 mmol/L [facility] Anion gap 12 2 - 15 mmol/L [facility] BUN 10 6 - 25 mg/dL [facility] Creatinine 0.96 0.80 - 1.30 mg/dL [facility] Glucose 90 70 - 199 mg/dL [facility] Comment: Interpretive Data Fasting glucose >/= [...] classification and Diagnosis of Diabetes Diabetes Care 202; 46: S19-S40. Current interpretive data was last revised 2022. Calcium 9.5 8.5 - 10.3 mg/dL [facility] Bilirubin, total 1.2 0.1 - 1.2 mg/dL [facility] Protein, pl 7.4 6.5 - 8.5 g/dL [facility] Albumin 4.4 3.5 - 5.0 g/dL [facility] Alk phos 54 40 - 130 Units/L [facility] ALT 33 7 - 55 Units/L [facility] AST 36 10 - 50 Units/L [facility] Blood 09/09/2024 8:51 PM CDT 09/09/2024 9:27 PM CDT us Christine Rossi MD LAB BLOOD ORDERABLES Final R esult [facility] Department [place] [address] * XR Abdomen Ap 1 Vw (09/09/2024 6:22 PM CDT) Anatomical Region Laterality Modality Body, Abdomen N/A Digital Radiogra phy 09/10/2024 8:48 AM CDT Impressions 09/10/2024 8:48 AM CDT Bowel gas pattern is within normal. Mild stool burden is seen in the right hemicolon. No bowel distention or radiologic changes of obstruction. Electronically signed by: Amy Sol M.D. Narrative 09/10/2024 8:48 AM CDT EXAMINATION: Abdomen, one view. HISTORY: Abdominal pain. COMPARISON: Correlation with CT performed on 09/06/2024 Procedure Note Amy Sol MD - 09/10/2024 EXAMINATION: Abdomen, one view. HISTORY: Abdominal pain. COMPARISON: Correlation with CT performed on 09/06/2024 IMPRESSION: Bowel gas pattern is within normal. Mild stool burden is seen in the right hemicolon. No bowel distention or radiologic changes of obstruction. Electronically signed by: Amy Sol M.D. us Christine Rossi MD IMG XR PROCEDURES Final Resu lt * MRI Cardiac M&F W WO Contrast (09/09/2024 4:30 PM CDT) Anatomical Region Laterality Modality Body N/A Magnetic Resonan ce 09/10/2024 4:39 AM CDT Impressions 09/10/2024 4:39 AM CDT 1. Large ostium secundum atrial septal defect with bidirectional flow. The Qp/Qs is estimated to be greater than 4:1. 2. Dilated right ventricle with normal function. 3. 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 4. No evidence for an infiltrative cardiomyopathy. Electronically signed by: Unruly Ford M.D. Narrative 09/10/2024 4:39 AM CDT Examination: Magnetic resonance imaging of the heart with and without intravenous contrast HISTORY: Evaluate atrial shunt TECHNIQUE: Standard multiplanar multisequence cardiac magnetic resonance imaging was performed with ECG gating. Images were performed prior to and after the administration of 10 mL of MultiHance intravenous injection. Images were sent to three-dimensional workstation for postprocessing. FINDINGS: Comparison is made to prior CT of the chest of 09/05/2024. No lymphadenopathy is seen. No pleural effusion. Note is made of a persistent left superior vena cava with an expected dilated coronary sinus. The heart size is moderately enlarged with particular enlargement of the right ventricle and right atrium. The aorta is normal in size but the pulmonary artery is mildly dilated with the main pulmonary artery measuring 3.8 cm orthogonal to the long axis. Images of the upper abdomen show mild dilatation of the intrahepatic inferior vena cava. The left ventricle is normal in size with normal function. No wall motion abnormalities are seen. The right ventricle is moderately dilated with normal function. There is no wall motion abnormality seen. Note is made of a large ostium secundum atrial septal defect measure about 3 cm in diameter. There is partial flow across this large septal defect. Mild mitral regurgitation is seen. No tricuspid abnormality. No pulmonic abnormality. Minimal aortic regurgitation is seen. T1 and T2 maps are normal.No delayed contrast is seen. A very small nonsignificant pericardial effusion is seen. Quantitative results: LV VOLUMETRY EDV 108 ml (112-196) ESV 44 ml (29-73) SV 64 ml (75-131) EF 59 % (58-76) CO 4.39 l/min RV VOLUMETRY EDV 283 ml (109-211) ESV 141 ml (24-86) SV 142 ml (71-141) EF 50% (53-79) CO 9.77 l/min Pulmonary flow Net flow volume 118 mL No regurgitation Peak flow velocity 0.7 m/s Peak pressure gradient 2.35 mmHg Aortic flow Net flow volume 27 mL Regurgitant fraction (S.I) 6% Peak flow velocity 0.6 Peak pressure gradient 1.63 mmHg Based on volumetry the Qp/Qs equals 2.4:1. Based on flows, the Qp/Qs is calculated at 4.3:1. Based on some technical limitations the estimated Qp/Qs is believed to be closer to the flow estimation. Procedure Note Unruly Ford MD - 09/10/2024 Examination: Magnetic resonance imaging of the heart with and without intravenous contrast HISTORY: Evaluate atrial shunt TECHNIQUE: Standard multiplanar multisequence cardiac magnetic resonance imaging was performed with ECG gating. Images were performed prior to and after the administration of 10 mL of MultiHance intravenous injection. Images were sent to three-dimensional workstation for postprocessing. FINDINGS: Comparison is made to prior CT of the chest of 09/05/2024. No lymphadenopathy is seen. No pleural effusion. Note is made of a persistent left superior vena cava with an expected dilated coronary sinus. The heart size is moderately enlarged with particular enlargement of the right ventricle and right atrium. The aorta is normal in size but the pulmonary artery is mildly dilated with the main pulmonary artery measuring 3.8 cm orthogonal to the long axis. Images of the upper abdomen show mild dilatation of the intrahepatic inferior vena cava. The left ventricle is normal in size with normal function. No wall motion abnormalities are seen. The right ventricle is moderately dilated with normal function. There is no wall motion abnormality seen. Note is made of a large ostium secundum atrial septal defect measure about 3 cm in diameter. There is partial flow across this large septal defect. Mild mitral regurgitation is seen. No tricuspid abnormality. No pulmonic abnormality. Minimal aortic regurgitation is seen. T1 and T2 maps are normal.No delayed contrast is seen. A very small nonsignificant pericardial effusion is seen. Quantitative results: LV VOLUMETRY EDV 108 ml (112-196) ESV 44 ml (29-73) SV 64 ml (75-131) EF 59 % (58-76) CO 4.39 l/min RV VOLUMETRY EDV 283 ml (109-211) ESV 141 ml (24-86) SV 142 ml (71-141) EF 50% (53-79) CO 9.77 l/min Pulmonary flow Net flow volume 118 mL No regurgitation Peak flow velocity 0.7 m/s Peak pressure gradient 2.35 mmHg Aortic flow Net flow volume 27 mL Regurgitant fraction (S.I) 6% Peak flow velocity 0.6 Peak pressure gradient 1.63 mmHg Based on volumetry the Qp/Qs equals 2.4:1. Based on flows, the Qp/Qs is calculated at 4.3:1. Based on some technical limitations the estimated Qp/Qs is believed to be closer to the flow estimation. IMPRESSION: 1. Large ostium secundum atrial septal defect with bidirectional flow. The Qp/Qs is estimated to be greater than 4:1. 2. Dilated right ventricle with normal function. 3. 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 4. No evidence for an infiltrative cardiomyopathy. Electronically signed by: Unruly Ford M.D. us Christine Rossi MD IMG MRI PROCEDURES Final Res ult * eGFR (09/08/2024 9:37 PM CDT) eGFR 90 >=60 mL/min/1. 73 m2 Comment: Interpretive Data [...] interpretive data was last reviewed 2021. Blood 09/08/2024 9:37 PM CDT 09/08/2024 10:41 PM CDT us Christine Rossi MD LAB BLOOD ORDERABLES Final R esult [facility] Department [place] [address] * Differential, auto (09/08/2024 9:37 PM CDT) Neutrophil abs 3.89 1.50 - 6.50 K/cumm Imm gran abs 0.02 0.00 - 0.10 K/cumm [facility] Lymphocyte abs 2.37 0.80 - 3.30 K/cumm [facility] Monocyte abs 0.37 0.20 - 0.80 K/cumm [facility] Eosinophil abs 0.02 0.00 - 0.50 K/cumm [facility] Basophil abs 0.05 0.00 - 0.10 K[facility]cumm [facility] Neutrophil pct 57.9 % [facility] Comment: Interpretive Data Percent cell count reference ranges are not reported, since discordance with absolute values may lead to misinterpretation of CBC data. Current Interpretive Data was last revised on 2017. Imm gran pct 0.3 % [facility] Comment: Interpretive Data Percent cell count reference ranges are not reported, since discordance with absolute values may lead to misinterpretation of CBC data. Current Interpretive Data was last revised on 2017. Lymphocyte pct 35.3 % [facility] Comment: Interpretive Data Percent cell count reference ranges are not reported, since discordance with absolute values may lead to misinterpretation of CBC data. Current Interpretive Data was last revised on 2017. Monocyte pct 5.5 % [facility] Comment: Interpretive Data Percent cell count reference ranges are not reported, since discordance with absolute values may lead to misinterpretation of CBC data. Current Interpretive Data was last revised on 2017. Eosinophil pct 0.3 % [facility] Comment: Interpretive Data Percent cell count reference ranges are not reported, since discordance with absolute values may lead to misinterpretation of CBC data. Current Interpretive Data was last revised on 2017. Basophil pct 0.7 % [facility] Comment: Interpretive Data Percent cell count reference ranges are not reported, since discordance with absolute values may lead to misinterpretation of CBC data. Current Interpretive Data was last revised on 2017. Blood 09/08/2024 9:37 PM CDT 09/08/2024 10:42 PM CDT us Christine Rossi MD LAB BLOOD ORDERABLES Final R esult Performing Organization Address City/[facility]/ZIP Co de Phone Number [facility] [place] [employer] [place] [address] * (ABNORMAL) CBC with auto differential (09/08/2024 9:37 PM CDT) WBC 6.72 3.80 - 9.90 K/cumm Hgb 14.8 13.0 - 17.5 g/dL [facility] Hct 41.0 38.9 - 50.3 % [facility] Plt 175 150 - 400 K/cumm [facility] MPV 9.1 9.1 - 12.3 fL [facility] RBC 4.53 4.30 - 5.80 M/cumm [facility] MCV 90.5 81.3 - 96.4 fL [facility] MCH 32.7 27.1 - 33.3 pg [facility] MCHC 36.1(H) 32.3 - 35.7 g/dL [facility] RDW CV 13.2 11.1 - 14.9 % [facility] RDW SD 43.4 35.7 - 48.1 fL [facility] NRBC abs 0.00 0.00 - 0.01 K/cumm [facility] Blood 09/08/2024 9:37 PM CDT 09/08/2024 10:42 PM CDT us Christine Rossi MD LAB BLOOD ORDERABLES Final R esult [facility] Department [place] [address] * (ABNORMAL) Comprehensive metabolic panel (09/08/2024 9:37 PM CDT) Pathologist [facility] Sodium 139 135 - 145 mmol/L Potassium, pl 4.0 3.3 - 4.9 mmol/L [facility] Chloride 104 97 - 110 mmol/L [facility] CO2 25 22 - 32 mmol/L [facility] Anion gap 10 2 - 15 mmol/L [facility] BUN 12 6 - 25 mg/dL [facility] Creatinine 0.97 0.80 - 1.30 mg/dL [facility] Glucose 88 70 - 199 mg/dL [facility] Comment: Interpretive Data Fasting glucose >/= [...] classification and Diagnosis of Diabetes Diabetes Care 202; 46: S19-S40. Current interpretive data was last revised 2022. Calcium 9.5 8.5 - 10.3 mg/dL [facility] Bilirubin, total 1.9(H) 0.1 - 1.2 mg/dL [facility] Protein, pl 6.8 6.5 - 8.5 g/dL [facility] Albumin 4.4 3.5 - 5.0 g/dL [facility] Alk phos 50 40 - 130 Units/L [facility] ALT 24 7 - 55 Units/L [facility] AST 22 10 - 50 Units/L [facility] Blood 09/08/2024 9:37 PM CDT 09/08/2024 10:41 PM CDT us Christine Rossi MD LAB BLOOD ORDERABLES Final R esult [facility] Department [place] [address] * TRANSTHORACIC ECHO (TTE) COMPLETE W DOPPLER/CF W CONTRAST (09/08/2024 10:20 AM CDT) EF Mod BP 66 % CONS SCIMAGE Anatomical Region Laterality Modality Ultrasound 09/08/2024 8:44 AM CDT Narrative 09/08/2024 11:28 AM CDT [facility] [place] [address] Transthoracic Echocardiographic Report ADDENDUM Patient Name: MIGUELITO LOPES : 1965 (58y 11m) Gender: M Study Date: 09/08/2024 08:44:44 AM Ht(Inch): 65 Wt(Lb): 121.03 BSA: 1.59 After School Counselor: Javi Marte RDCS Location: [id number] Order Provider: CHRISTINE ROSSI Heart Rate: 83 BMI: 20.14 BP: 107 / 81 Ref Provider: CHRISTINE ROSSI PROCEDURES: Echocardiographic Report: Transthoracic complete echo with strain imaging and contrast, 2D, spectral and tissue Doppler, color flow Doppler, M-mode. Contrast: Contrast Enhancement was Employed: After initial imaging due to sub- optimal quality related to co-morbidity defined by patient's body habitus. 1.1 ml Optison Administered, (1.9 ml wasted). INDICATIONS: C/f RV dysfunction, congestive hepatopathy. CONCLUSIONS: 1. Views 20 and 62 show color flow Doppler evidence consistent with likely bidirectional shunt at atrial level across what seems to be a large Ostium Secundum Atrial Septal Defect, associated with a dilated coronary sinus most likely due to RA and dilatation, that have resulted from chronic RV volume overload. Saline contrast echocardiogarm was not performed; rather Optison injection frrom a left arm vein was done; Can not completely exclude a Persistent Left Superior Vena Cava draining to Coronary Sinus, for which saline contrast from a left arm vein would be required. ANGELO is recommended. Normal left ventricular size based on volume index. Concentric LV remodeling. Normal left ventricular systolic function. The Ejection Fraction (Fortune's) is measured at 66 %. The average global longitudinal strain is borderline. 2. Right ventricular dilatation. Normal right ventricular systolic function. 3. Findings are consistent with a secundum atrial septal defect. ATTESTATION: I have personally reviewed and interpreted this study without fellow or resident. - DISCLAIMER: The study images and the final report will be retained in the patient chart by the Echo Laboratory for the legally required time period. This chart constitutes the legal record of any testing performed. FINDINGS: Left Ventricle: Normal left ventricular size based on volume index. Concentric LV remodeling. Normal left ventricular systolic function. The Ejection Fraction (Fortune's) is measured at 66 %. The average global longitudinal strain is borderline. The LV global strain is: -16.1 %. The ventricular septum is flattened or `D-shaped` in diastole, consistent with right ventricular volume overload. Paradoxical septal motion consistent with Righ Ventriculzar Volume Overload. Right Ventricle: Right ventricular dilatation. RV dilation Moderate RV dilation. Normal right ventricular systolic function. Dilated coronary sinus as can be seen in patients with Persistent Left Superior Vena Cava draining to coronary sinus;. Left Atrium: Moderately dilated left atrium. Right Atrium: Right atrial dilatation. Severely dilated right atrium. Chiari network in right atrium (normal variant). Mitral Valve: Normal Mitral Valve Structure. Mild mitral valve regurgitation. Aortic Valve: Normal trileaflet aortic valve. No aortic regurgitation. No aortic valve stenosis. Tricuspid Valve: Normal Tricuspid valve structure. Mild tricuspid regurgitation. Pulmonic Valve: Normal pulmonic valve structure. No pulmonic regurgitation. No pulmonic valve stenosis present. Pericardium: Normal pericardium without pericardial effusion. Aorta: Normal aortic root size at sinuses of Valsalva. Dilation of the ascending aorta when indexed. PASP: Normal estimated pulmonary artery systolic pressure. Congenital: Findings are consistent with a secundum atrial septal defect. Rhythm: Normal Sinus rhythm was seen during the study. MEASUREMENTS: 2D/MM Value Range Doppler Value Range LVIDd 2D 3.69 cm [ 4.20 - 5.80 ] LVOT Peak Jah 0.6 m/s [ 0.7 - 1.1 ] LVIDs 2D 2.23 cm [ 2.50 - 4.00 ] LVOT Peak PG 1.44 mmHg IVSd 2D 0.92 cm [ 0.60 - 1.00 ] LVOT Mean PG 1 mmHg LVPWd 2D 0.91 cm [ 0.60 - 1.00 ] LVOT VTI 10.3 cm LV Thickness Ratio 1.0 LVOT Diam 2.30 cm LV FS 2D 39.48 % [ 25.00 - 43.00 ] MV E Peak Jah 0.5 m/s [ 0.6 - 1.3 ] LV Mass 2D 100.34 g MV A Peak Jah 0.8 m/s [ 1.0 - 1.2 ] LV Mass Index 2D 63.11 g/m2 MV E/A 0.6 ratio [ 0.8 - 1.5 ] RWT 0.49 MV Decel Time 170.89 msec [ 104.00 - 258.00 ] EDV Mod BP 101.15 ml [ 62.00 - 150.00 ] Med E` Jah 10.1 cm/sec [ 8.0 - 25.0 ] LV EDV Index 63.62 ml/m2 Lat E` Jah 10.8 cm/sec [ 10.0 - 25.0 ] ESV Mod BP 34.15 ml [ 21.00 - 61.00 ] Average E/E` 4.78 EF Mod BP 66 % [ 52 - 72 ] RV S` 11.71 cm/sec LV GLS -16.1 % [ -25.0 - -18.0 ] TR Peak Jah 2.7 m/s [ 1.0 - 2.8 ] LA Length 4C 8.03 cm TR Peak PG 29.2 mmHg LA Length 2C 7.24 cm LA Volume BP 153.93 ml LA Volume Index 96.81 ml/m2 [ 16.00 - 34.00 ] RV Base Dimen 2D 4.7 cm [ 2.5 - 4.2 ] TAPSE 1.80 cm [ 1.71 - 5.00 ] RA Volume 164.51 ml RA Volume Index 103.47 ml/m2 AoR Diam 2D 3.17 cm [ 3.10 - 3.70 ] Ao Root Index 1.99 cm/m2 [ 1.00 - 2.00 ] Asc Ao Diam 2D 3.22 cm Asc Ao Index 2.03 cm/m2 Electronically Signed By: Binu Urban MD 2024-09-08 11:27:15 CDT Electronically Amended By: Binu Urban MD 09/08/2024 11:37:17 AM CDT [ADDENDUM] Procedure Note Binu Urban MD - 09/08/2024 [facility] [place] [address] Transthoracic Echocardiographic Report ADDENDUM Patient Name: MIGUELITO LOPES : 1965 (58y 11m) Gender: M Study Date: 09/08/2024 08:44:44 AM Ht(Inch): 65 Wt(Lb): 121.03 BSA: 1.59 After [employer] Counselor: Javi Marte RDCS Location: [id number] Order Provider:CHRISTINE ROSSI Heart Rate: 83 BMI: 20.14 BP: 107 / 81 Ref Provider: CHRISTINE ROSSI PROCEDURES: Echocardiographic Report: Transthoracic complete echo with strain imagingand contrast, 2D, spectral and tissue Doppler, color flow Doppler, M-mode. Contrast: Contrast Enhancement was Employed: After initial imaging due tosub- optimal quality related to co-morbidity defined by patient's body habitus. 1.1 mlOptison Administered, (1.9 ml wasted). INDICATIONS: C/f RV dysfunction, congestive hepatopathy. CONCLUSIONS: 1. Views 20 and 62 show color flow Doppler evidence consistent with likelybidirectional shunt at atrial level across what seems to be a large Ostium SecundumAtrial Septal Defect, associated with a dilated coronary sinus most likely due to RA anddilatation, that have resulted from chronic RV volume overload. Saline contrastechocardiogarm was not performed; rather Optison injection frrom a left arm vein was done;Can not completely exclude a Persistent Left Superior Vena Cava draining toCoronary Sinus, for which saline contrast from a left arm vein would be required. ANGELO isrecommended. Normal left ventricular size based on volume index. Concentric LV remodeling.Normal left ventricular systolic function. The Ejection Fraction (Fortune's) ismeasured at 66 %. The average global longitudinal strain is borderline. 2. Right ventricular dilatation. Normal right ventricular systolicfunction. 3. Findings are consistent with a secundum atrial septal defect. ATTESTATION: I have personally reviewed and interpreted this study without fellow orresident. - DISCLAIMER: The study images and the final report will be retained in the patientchart by the Echo Laboratory for the legally required time period. This chart constitutesthe legal record of any testing performed. FINDINGS: Left Ventricle: Normal left ventricular size based on volume index.Concentric LV remodeling. Normal left ventricular systolic function. The EjectionFraction (Fortune's) is measured at 66 %. The average global longitudinal strain is borderline.The LV global strain is: -16.1 %. The ventricular septum is flattened or `D-shaped` indiastole, consistent with right ventricular volume overload. Paradoxical septalmotion consistent with Righ Ventriculzar Volume Overload. Right Ventricle: Right ventricular dilatation. RV dilation Moderate RVdilation. Normal right ventricular systolic function. Dilated coronary sinus as can be seenin patients with Persistent Left Superior Vena Cava draining to coronary sinus;. Left Atrium: Moderately dilated left atrium. Right Atrium: Right atrial dilatation. Severely dilated right atrium.Chiari network in right atrium (normal variant). Mitral Valve: Normal Mitral Valve Structure. Mild mitral valveregurgitation. Aortic Valve: Normal trileaflet aortic valve. No aortic regurgitation. Noaortic valve stenosis. Tricuspid Valve: Normal Tricuspid valve structure. Mild tricuspidregurgitation. Pulmonic Valve: Normal pulmonic valve structure. No pulmonicregurgitation. No pulmonic valve stenosis present. Pericardium: Normal pericardium without pericardial effusion. Aorta: Normal aortic root size at sinuses of Valsalva. Dilation of theascending aorta when indexed. PASP: Normal estimated pulmonary artery systolic pressure. Congenital: Findings are consistent with a secundum atrial septaldefect. Rhythm: Normal Sinus rhythm was seen during the study. MEASUREMENTS: 2D/MM Value Range DopplerValue Range LVIDd 2D 3.69 cm [ 4.20 - 5.80 ] LVOT Peak Vel0.6 m/s [ 0.7 - 1.1 ] LVIDs 2D 2.23 cm [ 2.50 - 4.00 ] LVOT Peak PG1.44 mmHg IVSd 2D 0.92 cm [ 0.60 - 1.00 ] LVOT Mean PG1 mmHg LVPWd 2D 0.91 cm [ 0.60 - 1.00 ] LVOT VTI10.3 cm LV Thickness Ratio 1.0 LVOT Diam2.30 cm LV FS 2D 39.48 % [ 25.00 - 43.00 ] MV E Peak Vel0.5 m/s [ 0.6 - 1.3 ] LV Mass 2D 100.34 g MV A Peak Vel0.8 m/s [ 1.0 - 1.2 ] LV Mass Index 2D 63.11 g/m2 MV E/A0.6 ratio [ 0.8 - 1.5 ] RWT 0.49 MV Decel Gszd175.89 msec [ 104.00 - 258.00 ] EDV Mod BP 101.15 ml [ 62.00 - 150.00 ] Med E` Vel10.1 cm/sec [ 8.0 - 25.0 ] LV EDV Index 63.62 ml/m2 Lat E` Vel10.8 cm/sec [ 10.0 - 25.0 ] ESV Mod BP 34.15 ml [ 21.00 - 61.00 ] Average E/E`4.78 EF Mod BP 66 % [ 52 - 72 ] RV S`11.71 cm/sec LV GLS -16.1 % [ -25.0 - -18.0 ] TR Peak Vel2.7 m/s [ 1.0 - 2.8 ] LA Length 4C 8.03 cm TR Peak PG29.2 mmHg LA Length 2C7.24 cm LA Volume BP153.93 ml LA Volume Index 96.81 ml/m2 [ 16.00 - 34.00 ] RV Base Dimen 2D 4.7 cm [ 2.5 - 4.2 ] TAPSE 1.80 cm [ 1.71 - 5.00 ] RA Lfpukd453.51 ml RA Volume Boywv647.47 ml/m2 AoR Diam 2D 3.17 cm [ 3.10 - 3.70 ] Ao Root Index 1.99 cm/m2 [ 1.00 - 2.00 ] Asc Ao Diam 2D3.22 cm Asc Ao Index2.03 cm/m2 Electronically Signed By: Binu Urban MD 2024-09-08 11:27:15 CDT Electronically Amended By: Binu Urban MD 09/08/2024 11:37:17 AM CDT [ADDENDUM] us Christine Rossi MD CV ECHO PROCEDURES Edited Re sult - Final * eGFR (09/08/2024 5:08 AM CDT) eGFR >90 >=60 mL/min/1. 73 m2 Comment: Interpretive Data [...] interpretive data was last reviewed 2021. Blood 09/08/2024 5:08 AM CDT 09/08/2024 5:24 AM CDT us Christine Rossi MD LAB BLOOD ORDERABLES Final R esult Performing Organization Address City/[facility]/ZIP Co de Phone Number [facility] [place] [employer] [place] [address] * Magnesium (09/08/2024 5:08 AM CDT) Pathologist [facility] [place] Magnesium 2.4 1.4 - 2.5 mg/dL Blood 09/08/2024 5:08 AM CDT 09/08/2024 5:24 AM CDT Christine Rossi MD LAB BLOOD ORDERABLES Final R esult Performing Organization Address [facility] Co de Phone Number [facility] [place] [address] * Basic metabolic panel (09/08/2024 5:08 AM CDT) [facility] Sodium 140 135 - 145 mmol/L Potassium, pl 3.8 3.3 - 4.9 mmol/L [facility] Chloride 104 97 - 110 mmol/L [facility] CO2 24 22 - 32 mmol/L [facility] Anion gap 12 2 - 15 mmol/L [facility] BUN 12 6 - 25 mg/dL [facility] Creatinine 0.90 0.80 - 1.30 mg/dL [facility] Glucose 103 70 - 199 mg/dL [facility] Comment: Interpretive Data Fasting glucose >/= [...] interpretive data was last revised 2022. Calcium 9.3 8.5 - 10.3 mg/dL [facility] Blood 09/08/2024 5:08 AM CDT 09/08/2024 5:24 AM CDT us Christine Rossi MD LAB BLOOD ORDERABLES Final R esult Performing Organization Address City/[facility] Co de Phone Number [facility] [place] [address] * Troponin I high-sensitivity 6-hour (09/07/2024 10:41 PM CDT) Trop I hs 6 <=35 ng/L Comment: Interpretive Data For further hscTnI resources including the diagnostic algorithm and an aid in interpretation, copy and paste this link: [email or web address].testcatalog.org/show/[email or web address] Current Interpretive Data last revised 2019. Trop I hs delta See Comment ng/L [facility] Comment:Inappropriate collec tion time to report a delta. Trop I hs pct delta See Comment % [facility] Comment:Inappropriate collec tion time to report a delta. Trop I hs interp See Comment [facility] Comment:Inappropriate collec tion time to report a delta. Blood 09/07/2024 10:4 1 PM CDT 09/07/2024 10:56 PM CDT us Melissa Portillo MD LAB BLOOD ORDERABLES F inal Result Performing Organization Address City/[facility] Co de Phone Number [facility] Department [place] [address] * eGFR (09/07/2024 10:41 PM CDT) eGFR >90 >=60 mL/min/1. 73 m2 Comment: Interpretive Data [...] interpretive data was last reviewed 2021. Blood 09/07/2024 10:4 1 PM CDT 09/07/2024 10:55 PM CDT us Christine Rossi MD LAB BLOOD ORDERABLES Final R esult [facility] [place] [address] * Differential, auto (09/07/2024 10:41 PM CDT) Pathologist [facility] Neutrophil abs 4.41 1.50 - 6.50 K/cumm Imm gran abs 0.02 0.00 - 0.10 K/cumm [facility] Lymphocyte abs 2.24 0.80 - 3.30 K/cumm [facility] Monocyte abs 0.44 0.20 - 0.80 K/cumm [facility] Eosinophil abs 0.01 0.00 - 0.50 K/cumm [facility] Basophil abs 0.06 0.00 - 0.10 K/cumm [facility] Neutrophil pct 61.5 % [facility] Comment: Interpretive Data Percent cell count reference ranges are not reported, since discordance with absolute values may lead to misinterpretation of CBC data. Current Interpretive Data was last revised on 2017. Imm gran pct 0.3 % [facility] Comment: Interpretive Data Percent cell count reference ranges are not reported, since discordance with absolute values may lead to misinterpretation of CBC data. Current Interpretive Data was last revised on 2017. Lymphocyte pct 31.2 % [facility] Comment: Interpretive Data Percent cell count reference ranges are not reported, since discordance with absolute values may lead to misinterpretation of CBC data. Current Interpretive Data was last revised on 2017. Monocyte pct 6.1 % [facility] Comment: Interpretive Data Percent cell count reference ranges are not reported, since discordance with absolute values may lead to misinterpretation of CBC data. Current Interpretive Data was last revised on 2017. Eosinophil pct 0.1 % [facility] Comment: Interpretive Data Percent cell count reference ranges are not reported, since discordance with absolute values may lead to misinterpretation of CBC data. Current Interpretive Data was last revised on 2017. Basophil pct 0.8 % [facility] Comment: Interpretive Data Percent cell count reference ranges are not reported, since discordance with absolute values may lead to misinterpretation of CBC data. Current Interpretive Data was last revised on 2017. Blood 09/07/2024 10:4 1 PM CDT 09/07/2024 10:56 PM CDT us Christine Rossi MD LAB BLOOD ORDERABLES Final R esult [facility] [place] [address] * CBC with auto differential (09/07/2024 10:41 PM CDT) WBC 7.18 3.80 - 9.90 K/cumm Hgb 13.9 13.0 - 17.5 g/dL [facility] Hct 39.4 38.9 - 50.3 % [facility] Plt 175 150 - 400 K/cumm [facility] MPV 9.4 9.1 - 12.3 fL [facility] RBC 4.36 4.30 - 5.80 M/cumm [facility] MCV 90.4 81.3 - 96.4 fL [facility] MCH 31.9 27.1 - 33.3 pg [facility] MCHC 35.3 32.3 - 35.7 g/dL [facility] RDW CV 13.2 11.1 - 14.9 % [facility] RDW SD 43.5 35.7 - 48.1 fL [facility] NRBC abs 0.00 0.00 - 0.01 K/cumm [facility] Blood 09/07/2024 10:4 1 PM CDT 09/07/2024 10:56 PM CDT us Christine Rossi MD LAB BLOOD ORDERABLES Final R esult [facility] [place] [address] * (ABNORMAL) Comprehensive metabolic panel (09/07/2024 10:41 PM CDT) Sodium 141 135 - 145 mmol/L Potassium, pl 4.3 3.3 - 4.9 mmol/L [facility] Comment:Hemolyzed; Potassium value may be falsely elevated by as much as 0.3-0.5 mmol/L. Suggest redraw and reanalysis. Chloride 106 97 - 110 mmol/L [facility] CO2 25 22 - 32 mmol/L [facility] Anion gap 10 2 - 15 mmol/L [facility] BUN 13 6 - 25 mg/dL [facility] Creatinine 0.93 0.80 - 1.30 mg/dL [facility] Glucose 97 70 - 199 mg/dL [facility] Comment: Interpretive Data Fasting glucose >/= [...] interpretive data was last revised 2022. Calcium 9.2 8.5 - 10.3 mg/dL [facility] Bilirubin, total 1.7(H) 0.1 - 1.2 mg/dL [facility] Protein, pl 6.7 6.5 - 8.5 g/dL [facility] Albumin 4.0 3.5 - 5.0 g/dL [facility] Alk phos 49 40 - 130 Units/L [facility] ALT 27 7 - 55 Units/L [facility] AST 33 10 - 50 Units/L [facility] Comment:Hemolyzed; result ma y be falsely elevated Blood 09/07/2024 10:4 1 PM CDT 09/07/2024 10:55 PM CDT Christine Rossi MD LAB BLOOD ORDERABLES Final R esult Performing Organization Address [facility] de Phone Number [facility] [place] [employer] [place] [address] * Troponin I high-sensitivity 4-hour (09/07/2024 8:09 PM CDT) Pathologist [facility] Trop I hs 6 <=35 ng/L Comment: Interpretive Data For further hscTnI resources including the diagnostic algorithm and an aid in interpretation, copy and paste this link: [email or web address]/show/[email or web address] Current Interpretive Data last revised 2019. Trop I hs delta 0 ng/L [facility] Trop I hs interp Insignificant [facility] Blood 09/07/2024 8:09 PM CDT 09/07/2024 8:27 PM CDT Melissa Portillo MD LAB BLOOD ORDERABLES F inal Result Performing Organization Address [facility] Co de Phone Number [facility] [place] [employer] [place] [address] * Troponin I high-sensitivity 2-hour (09/07/2024 5:58 PM CDT) Trop I hs 5 <=35 ng/L Comment: Interpretive Data For further hscTnI resources including the diagnostic algorithm and an aid in interpretation, copy and paste this link: [email or web address]/show/[email or web address] Current Interpretive Data last revised 2019. Trop I hs delta -1 ng/L [facility] Trop I hs interp Insignificant [facility] Blood 09/07/2024 5:58 PM CDT 09/07/2024 6:08 PM CDT Melissa Portillo MD LAB BLOOD ORDERABLES F inal Result Performing Organization Address [facility] de Phone Number [facility] [employer] [place] [address] * Troponin I high-sensitivity series (baseline, 2hr, 4hr, 6hr) (09/07/2024 3:37 PM CDT) [facility] Trop I hs 6 <=35 ng/L Comment: Interpretive Data For further [facility] resources including the diagnostic algorithm and an aid in interpretation, copy and paste this link: [email or web address]/show/[email or web address] Current Interpretive Data last revised 2019. Blood 09/07/2024 3:37 PM CDT 09/07/2024 3:51 PM CDT Melissa Portillo MD LAB BLOOD ORDERABLES F inal Result Performing Organization Address [facility] de Phone Number [facility] [employer] [place] [address] * ECG 12 lead (09/07/2024 2:16 PM CDT) Pathologist [facility] Ventricular Rate EKG/Min 108 BPM [facility] Atrial Rate 141 BPM [facility] QRS-Interval (MSEC) 116 ms [facility] QT-Interval (MSEC) 354 ms [facility] QTc 474 ms [facility] R Marshall 269 degrees [facility] T Marshall 53 degrees [facility] Diagnosis Atrial fibrillation with rapid ventricular response with premature ventricular or aberrantly conducted complexes Right superior axis deviation Incomplete right bundle branch block Possible Right ventricular hypertrophy ST & T wave abnormality, consider anterior ischemia Abnormal ECG When compared with ECG of 06-SEP-2024 15:24, (unconfirmed) Atrial fibrillation has replaced Sinus rhythm T wave inversion no longer evident in Inferior leads QT has shortened Confirmed by LARRY LAGOS M.D ([id number]) on 09/09/2024 3:25:45 PM [facility] 09/07/2024 2:16 PM CDT 09/09/2024 3:25 PM CDT us Conner Stovall MD ECG ORDERABLES Final Result [facility] * eGFR (09/06/2024 9:47 PM CDT) eGFR >90 >=60 mL/min/1. 73 m2 Comment: Interpretive Data [...] interpretive data was last reviewed 2021. Blood 09/06/2024 9:47 PM CDT 09/06/2024 10:13 PM CDT us Christine Rossi MD LAB BLOOD ORDERABLES Final R esult [facility] [place] [address] * Differential, auto (09/06/2024 9:47 PM CDT) Neutrophil abs 4.88 1.50 - 6.50 K/cumm Imm gran abs 0.03 0.00 - 0.10 K/cumm [facility] Lymphocyte abs 2.82 0.80 - 3.30 K/cumm [facility] Monocyte abs 0.79 0.20 - 0.80 K/cumm [facility] Eosinophil abs 0.03 0.00 - 0.50 K/cumm [facility] Basophil abs 0.05 0.00 - 0.10 K/cumm [facility] Neutrophil pct 56.8 % [facility] Comment: Interpretive Data Percent cell count reference ranges are not reported, since discordance with absolute values may lead to misinterpretation of CBC data. Current Interpretive Data was last revised on 2017. Imm gran pct 0.3 % [facility] Comment: Interpretive Data Percent cell count reference ranges are not reported, since discordance with absolute values may lead to misinterpretation of CBC data. Current Interpretive Data was last revised on 2017. Lymphocyte pct 32.8 % [facility] Comment: Interpretive Data Percent cell count reference ranges are not reported, since discordance with absolute values may lead to misinterpretation of CBC data. Current Interpretive Data was last revised on 2017. Monocyte pct 9.2 % [facility] Comment: Interpretive Data Percent cell count reference ranges are not reported, since discordance with absolute values may lead to misinterpretation of CBC data. Current Interpretive Data was last revised on 2017. Eosinophil pct 0.3 % [facility] Comment: Interpretive Data Percent cell count reference ranges are not reported, since discordance with absolute values may lead to misinterpretation of CBC data. Current Interpretive Data was last revised on 2017. Basophil pct 0.6 % [facility] Comment: Interpretive Data Percent cell count reference ranges are not reported, since discordance with absolute values may lead to misinterpretation of CBC data. Current Interpretive Data was last revised on 2017. Blood 09/06/2024 9:47 PM CDT 09/06/2024 10:13 PM CDT us Christine Rossi MD LAB BLOOD ORDERABLES Final R esult [facility] [place] [address] * Thyroid Function Casanova (09/06/2024 9:47 PM CDT) [facility] TSH 2.14 0.30 - 4.20 mcIUnit/mL Blood 09/06/2024 9:47 PM CDT 09/06/2024 10:13 PM CDT us Christine Rossi MD LAB BLOOD ORDERABLES Final R esult Performing Organization Address City/[facility] Co de Phone Number [facility] [place] [address] * (ABNORMAL) CBC with auto differential (09/06/2024 9:47 PM CDT) [facility] WBC 8.60 3.80 - 9.90 K/cumm Hgb 15.1 13.0 - 17.5 g/dL [facility] Hct 42.1 38.9 - 50.3 % [facility] Plt 181 150 - 400 K/cumm [facility] MPV 9.0(L) 9.1 - 12.3 fL [facility] RBC 4.69 4.30 - 5.80 M/cumm [facility] MCV 89.8 81.3 - 96.4 fL [facility] MCH 32.2 27.1 - 33.3 pg [facility] MCHC 35.9(H) 32.3 - 35.7 g/dL [facility] RDW CV 13.2 11.1 - 14.9 % [facility] RDW SD 43.3 35.7 - 48.1 fL [facility] NRBC abs 0.00 0.00 - 0.01 K/cumm [facility] Blood 09/06/2024 9:47 PM CDT 09/06/2024 10:13 PM CDT Christine Rossi MD LAB BLOOD ORDERABLES Final R esult Performing Organization Address [facility] Co de Phone Number [facility] [place] [address] * (ABNORMAL) Protime-INR (09/06/2024 9:47 PM CDT) PT 13.7(H) 9.7 - 13.0 sec INR 1.26(H) 0.90 - 1.20 [facility] Comment: Interpretive data Oral anticoagulant therapeutic ranges: Venous thromboembolism prophylaxis or treatment: 2.0-3.0 CARDIOLOGY Standard range: 2.0-3.0 High-intensity range: 2.5-3.5 Refer to indication-specific guidelines for appropriate target ranges for prosthetic heart valve replacement. Current interpretive data was last revised on 2019. Blood 09/06/2024 9:47 PM CDT 09/06/2024 10:29 PM CDT Christine Rossi MD LAB BLOOD ORDERABLES Final R esult Performing Organization Address City/[facility] Co de Phone Number [facility] [place] [address] * (ABNORMAL) Comprehensive metabolic panel (09/06/2024 9:47 PM CDT) Pathologist [facility] Sodium 141 135 - 145 mmol/L Potassium, pl 4.3 3.3 - 4.9 mmol/L [facility] Chloride 104 97 - 110 mmol/L [facility] CO2 25 22 - 32 mmol/L [facility] Anion gap 12 2 - 15 mmol/L [facility] BUN 17 6 - 25 mg/dL [facility] Creatinine 0.93 0.80 - 1.30 mg/dL [facility] Glucose 72 70 - 199 mg/dL [facility] Comment: Interpretive Data Fasting glucose >/= [...] interpretive data was last revised 2022. Calcium 9.5 8.5 - 10.3 mg/dL [facility] Bilirubin, total 2.4(H) 0.1 - 1.2 mg/dL [facility] Protein, pl 6.8 6.5 - 8.5 g/dL [facility] Albumin 4.3 3.5 - 5.0 g/dL [facility] Alk phos 52 40 - 130 Units/L [facility] ALT 27 7 - 55 Units/L [facility] AST 27 10 - 50 Units/L [facility] Blood 09/06/2024 9:47 PM CDT 09/06/2024 10:13 PM CDT us Christine Rossi MD LAB BLOOD ORDERABLES Final R esult [facility] [place] [address] * ECG 12 lead (09/06/2024 3:24 PM CDT) Ventricular Rate EKG/Min 96 BPM [facility] Atrial Rate 83 BPM [facility] FL-Interval (MSEC) 94 ms [facility] QRS-Interval (MSEC) 110 ms [facility] QT-Interval (MSEC) 424 ms [facility] QTc 535 ms [facility] P Marshall 44 degrees [facility] R Marshall -88 degrees [facility] T Marshall -13 degrees [facility] Diagnosis Sinus rhythm with short FL with frequent , and consecutive Premature ventricular complexes with junctional escape complexes Left axis deviation Low voltage QRS Incomplete right bundle branch block Prolonged QT Abnormal ECG No previous ECGs available Confirmed by Carlos SORTO, Gregory ([id number]) on 2024 2:46:49 PM [facility] 09/06/2024 3:24 PM CDT 2024 2:46 PM CDT us Conner Stovall MD ECG ORDERABLES Final Result [facility] * Lactate (09/06/2024 2:26 PM CDT) [facility] Lactate 2.0 0.7 - 2.0 mmol/L Blood 09/06/2024 2:26 PM CDT 09/06/2024 2:36 PM CDT us Christine Rossi MD LAB BLOOD ORDERABLES Final R esult Performing Organization Address [facility] Co de Phone Number [facility] [place] [address] * Respiratory pathogen panel Nasopharyngeal (09/06/2024 9:37 AM CDT) [facility] Influenza A RNA Not Detected Not Detected Influenza B RNA Not Detected Not Detected [facility] RSV RNA Not Detected Not Detected [facility] COVID-19 RNA Not Detected Not Detected [facility] Coronavirus 229E RNA Not Detected Not Detected [facility] Coronavirus HKU1 RNA Not Detected Not Detected [facility] Coronavirus NL63 RNA Not Detected Not Detected [facility] Coronavirus OC43 RNA Not Detected Not Detected [facility] Adenovirus DNA Not Detected Not Detected [facility] Metapneumovirus RNA Not Detected Not Detected [facility] Rhinovirus/Enterov irus RNA Not Detected Not Detected [facility] Parainfluenza 1 RNA Not Detected Not Detected [facility] Parainfluenza 2 RNA Not Detected Not Detected [facility] Parainfluenza 3 RNA Not Detected Not Detected [facility] Parainfluenza 4 RNA Not Detected Not Detected [facility] B. pertussis DNA Not Detected Not Detected [facility] B. parapertussis DNA Not Detected Not Detected [facility] C. pneumoniae DNA Not Detected Not Detected [facility] M. pneumoniae DNA Not Detected Not Detected [facility] Nasopharyngeal 09/06/2024 9: 37 AM CDT 09/06/2024 9:43 AM CDT [facility] - 09/06/2024 10:36 AM CDT Is the Patient experiencing symptoms consistent with COVID?->No Surveillance testing for transplant patient?->No Interpretive Data The Ditto FilmArray Respiratory Panel (RP2.1) assay is a multiplexed real-time PCR based nucleic acid test capable of simultaneous qualitative detection and identification of multiple respiratory viral and bacterial nucleic acids, including SARS Coronavirus 2 (the causative agent of COVID-19). The following bacteria, viruses and virus subtypes can be identified using the FilmArray RP2.1 assay: Bordetella pertussis, Bordetella parapertussis, Chlamydia pneumoniae, Mycoplasma pneumoniae, Adenovirus, SARS Coronavirus 2, seasonal coronaviruses (Coronavirus HKU1, Coronavirus NL63, Coronavirus 229E, and Coronavirus OC43), Influenza A, Influenza A subtype H1, Influenza A subtype H3, Influenza A subtype 2009 H1, Influenza B, Metapneumovirus, Parainfluenza 1, Parainfluenza 2, Parainfluenza 3, Parainfluenza 4, RSV, Rhinovirus/Enterovirus. Due to the genetic similarity between human Rhinovirus and Enterovirus, the FilmArray RP2.1 assay cannot reliably differentiate them. Coronavirus OC43 may cross-react with some isolates of Coronavirus HKU1. A dual positive result may be due to cross-reactivity or may indicate a co- infection. The detection and identification of specific viral and bacterial nucleic acids from individuals exhibiting signs and symptoms of a respiratory infection aids in the diagnosis of respiratory infection if used in conjunction with other clinical and epidemiological information. The results of this test should not be used as the sole basis for diagnosis, treatment, or other management decisions. Negative results in the setting of a respiratory illness may be due to infection with pathogens that are not detected by this test. Positive results do not rule out infection/co-infection with other organisms. The agent(s) detected by the FilmArray RP2.1 may not be the definite cause of disease. Additional testing (lab, imaging, etc.) may be necessary when evaluating a patient with possible respiratory tract infection. The FilmArray RP2.1 assay has FDA clearance for testing of [employer] swabs. The performance of additional specimen types has been assessed by the performing laboratory. The performance characteristics of this assay have been determined by [facility]. Current interpretive data was last revised on 22. Mikki Guzman MD LAB MICROBIOLOGY - GENERA L ORDERABLES Final Result Performing Organization Address City/[facility]/ZIP Co de Phone Number [facility] [place] [address] * (ABNORMAL) Urinalysis reflex to microscopic and culture Urine (09/06/2024 7:03 AM CDT) Color, ur Straw Yellow Clarity, ur Clear Clear [facility] Specific gravity, ur >1.042(H) 1.003 - 1.030 [facility] pH, urine 6.0 [facility] Comment: Interpretive Data U rine pH is affected by diet, medications, systemic acid-base disturbances, and renal tubular function. pH may affect urinary stone formation. For example, urine pH below 6.0 may help reduce the tendency for calcium phosphate stones and pH greater than 6.0 may reduce the tendency for uric acid stone formation. Source: [facility] Current Interpretive Data was last revised on 2017 Protein, ur ql Trace Negative [facility] Glucose, ur ql Negative Negative [facility] Ketones, ur 1+(A) Negative [facility] Bilirubin, ur Negative Negative [facility] Blood, ur Negative Negative [facility] Urobilinogen, ur <2.0 <2.0 mg/dL [facility] Nitrite, ur Negative Negative [facility] Leukocyte esterase, ur Negative Negative [facility] UA reflex comment Reflex conditions for microscopic UA and culture not met. [facility] Urine 09/06/2024 7:03 AM CDT 09/06/2024 7:21 AM CDT us Ravi Weaver MD LAB MICROBIOLOGY - GE NERAL ORDERABLES Final Result Performing Organization Address City/[facility]/ZIP Co de Phone Number [facility] [place] [address] * CT Abdomen Pelvis W Contrast (09/06/2024 1:48 AM CDT) Anatomical Region Laterality Modality Body N/A Computed Tomogra phy 09/06/2024 2:03 AM CDT Impressions 09/06/2024 9:42 AM CDT No acute findings within the abdomen or pelvis. Dictated by: Cyndy Lucio MD, PhD The radiology attending physician has personally reviewed this study, and had reviewed and/or edited this written report and agrees with it. Electronically signed by: Conner Ashley MD Narrative 09/06/2024 9:42 AM CDT EXAMINATION: CT of the abdomen, and pelvis with intravenous contrast. HISTORY: 58-year-old with left-sided abdominal pain. TECHNIQUE: Transaxial computed tomographic images of the chest, abdomen, and pelvis were obtained after the uneventful administration of 100 mL of Optiray 350 intravenous contrast according to the standard protocol. COMPARISON: None available. FINDINGS: Imaged portion of the chest demonstrates no basilar consolidation, pleural effusion, or pneumothorax. Right atrial enlargement is present. ABDOMEN AND PELVIS: No focal hepatic lesion. Portal and hepatic veins are patent. No intra or extrahepatic biliary ductal dilatation. Spleen, pancreas, adrenal glands are normal. Kidneys enhance symmetrically without hydronephrosis. Excreted contrast is present within the collecting system, in the setting of prior CT chest. Redemonstrated malrotated left kidney. Urinary bladder is filled with contrast. Prostate is present. Small and large bowel are normal in caliber without evidence of obstruction. No free fluid or pneumoperitoneum. No evidence of periappendiceal inflammation. No abdominal or pelvic lymphadenopathy. Abdominal and pelvic vasculature are normal in course and caliber. No suspicious osseous lesions. Procedure Note Conner Ashley MD - 09/06/2024 EXAMINATION: CT of the abdomen, and pelvis with intravenous contrast. HISTORY: 58-year-old with left-sided abdominal pain. TECHNIQUE: Transaxial computed tomographic images of the chest, abdomen, and pelvis were obtained after the uneventful administration of 100 mL of Optiray 350 intravenous contrast according to the standard protocol. COMPARISON: None available. FINDINGS: Imaged portion of the chest demonstrates no basilar consolidation, pleural effusion, or pneumothorax. Right atrial enlargement is present. ABDOMEN AND PELVIS: No focal hepatic lesion. Portal and hepatic veins are patent. No intra or extrahepatic biliary ductal dilatation. Spleen, pancreas, adrenal glands are normal. Kidneys enhance symmetrically without hydronephrosis. Excreted contrast is present within the collecting system, in the setting of prior CT chest. Redemonstrated malrotated left kidney. Urinary bladder is filled with contrast. Prostate is present. Small and large bowel are normal in caliber without evidence of obstruction. No free fluid or pneumoperitoneum. No evidence of periappendiceal inflammation. No abdominal or pelvic lymphadenopathy. Abdominal and pelvic vasculature are normal in course and caliber. No suspicious osseous lesions. IMPRESSION: No acute findings within the abdomen or pelvis. Dictated by: Cyndy Lucio MD, PhD The radiology attending physician has personally reviewed this study, and had reviewed and/or edited this written report and agrees with it. Electronically signed by: Conner Ashley MD Ravi Weaver MD IMG CT PROCEDURES Fin al Result * Troponin I high-sensitivity 2-hour (09/06/2024 12:54 AM CDT) Trop I hs 11 <=35 ng/L Comment: Interpretive Data For further hscTnI resources including the diagnostic algorithm and an aid in interpretation, copy and paste this link: [email or web address]/[email or web address] Current Interpretive Data last revised 2019. Trop I hs delta -1 ng/L [facility] Trop I hs interp Insignificant [facility] Blood 09/06/2024 12:5 4 AM CDT 09/06/2024 1:14 AM CDT us Ravi Weaver MD LAB BLOOD ORDERABLES Final Result [facility] Department [place] [address] * (ABNORMAL) ECG 12-LEAD (09/06/2024 12:11 AM CDT) Narrative [facility] - 09/06/2024 12:11 AM CDT Anand Swain MD 09/06/2024 12:15 AM ECG 12 lead Date/Time: 09/06/2024 12:11 AM Performed by: Anand Swain MD Authorized by: Ravi Weaver MD Rate: ECG rate: 94 ECG rate assessment: normal Rhythm: Rhythm: sinus rhythm Ectopy: Ectopy: PVCs QRS: QRS axis: Normal QRS intervals: Normal Conduction: Conduction: abnormal Abnormal conduction: complete RBBB ST segments: ST segments: Abnormal Elevation: V3, V4 and V2 T waves: T waves: normal Previous ECG: Previous ECG: Compared to current Date of previous EC09/05/2024 Comparison ECG info: Rate improved, otherwise morphology similar Interpretation: Interpretation: abnormal Recommended Follow-up: Recommended follow up: further workup in the ED us Ravi Weaver MD ECG ORDERABLES Final Result [facility] * CT Chest PE (CTA) W Contrast (09/05/2024 11:29 PM CDT) Anatomical Region Laterality Modality Body N/A Computed Tomogra phy 09/05/2024 11:4 7 PM CDT Impressions 09/06/2024 9:17 AM CDT 1. No pulmonary embolism. 2. Reflux of contrast into the hepatic inferior vena cava and hepatic veins, which can be seen in the setting of right heart dysfunction. Dictated by: Cyndy Lucio MD, PhD The radiology attending physician has personally reviewed this study, and had reviewed and/or edited this written report and agrees with it. Electronically signed by: Conner Ashley MD Narrative 09/06/2024 9:17 AM CDT EXAMINATION: CT CHEST PE (CTA) W CONTRAST HISTORY: 58-year-old with large right heart and pericardial effusion, who stopped taking anticoagulation, evaluate for pulmonary embolism. TECHNIQUE: Computed tomographic images were acquired using a chest angiographic protocol optimized for pulmonary embolism. Contrast enhanced transaxial images were obtained following the intravenous administration of 80 ml of nonionic contrast. Multiplanar reformatted images and three-dimensional images were obtained on the 3-D workstation and sent to the PACS archival system. COMPARISON: None FINDINGS: No pulmonary embolism. No supraclavicular, axillary, mediastinal, or hilar lymphadenopathy. Cardiac silhouette is enlarged, particularly the right atrium. Small pericardial effusion. Main pulmonary arteries enlarged, measuring 3.8 cm, which can be seen in the setting of pulmonary hypertension. Coronary atherosclerosis. Duplicated left sided superior vena cava. No consolidation, pleural effusion, or pneumothorax. Imaged upper abdomen demonstrates reflux of contrast into the hepatic inferior vena cava and hepatic veins. Redemonstrated malrotated left kidney. No suspicious osseous lesions. Procedure Note Conner Ashley MD - 09/06/2024 EXAMINATION: CT CHEST PE (CTA) W CONTRAST HISTORY: 58-year-old with large right heart and pericardial effusion, who stopped taking anticoagulation, evaluate for pulmonary embolism. TECHNIQUE: Computed tomographic images were acquired using a chest angiographic protocol optimized for pulmonary embolism. Contrast enhanced transaxial images were obtained following the intravenous administration of 80 ml of nonionic contrast. Multiplanar reformatted images and three-dimensional images were obtained on the 3-D workstation and sent to the PACS archival system. COMPARISON: None FINDINGS: No pulmonary embolism. No supraclavicular, axillary, mediastinal, or hilar lymphadenopathy. Cardiac silhouette is enlarged, particularly the right atrium. Small pericardial effusion. Main pulmonary arteries enlarged, measuring 3.8 cm, which can be seen in the setting of pulmonary hypertension. Coronary atherosclerosis. Duplicated left sided superior vena cava. No consolidation, pleural effusion, or pneumothorax. Imaged upper abdomen demonstrates reflux of contrast into the hepatic inferior vena cava and hepatic veins. Redemonstrated malrotated left kidney. No suspicious osseous lesions. IMPRESSION: 1. No pulmonary embolism. 2. Reflux of contrast into the hepatic inferior vena cava and hepatic veins, which can be seen in the setting of right heart dysfunction. Dictated by: Cyndy Lucio MD, PhD The radiology attending physician has personally reviewed this study, and had reviewed and/or edited this written report and agrees with it. Electronically signed by: Conner Ashley MD us Ravi Weaver MD IMG CT PROCEDURES Fin al Result * XR Chest 1 Vw Portable (09/05/2024 11:00 PM CDT) Anatomical Region Laterality Modality Body, Chest N/A Computed Radiogr aphy 09/05/2024 11:1 8 PM CDT Impressions 09/06/2024 9:23 AM CDT Comparison is made to 06/28/2024. Redemonstrated enlarged cardiac silhouette with enlarged main pulmonary artery. No consolidation, pleural effusion or pneumothorax. Dictated by: Cyndy Lucio MD, PhD The radiology attending physician has personally reviewed this study, and had reviewed and/or edited this written report and agrees with it. Electronically signed by: Conner Ashley MD Narrative 09/06/2024 9:23 AM CDT EXAMINATION: 1 view chest radiograph Procedure Note Conner Ashley MD - 09/06/2024 EXAMINATION: 1 view chest radiograph IMPRESSION: Comparison is made to 06/28/2024. Redemonstrated enlarged cardiac silhouette with enlarged main pulmonary artery. No consolidation, pleural effusion or pneumothorax. Dictated by: Cyndy Lucio MD, PhD The radiology attending physician has personally reviewed this study, and had reviewed and/or edited this written report and agrees with it. Electronically signed by: Conner Ashley MD Ravi Weaver MD IMG XR PROCEDURES Fin al Result * (ABNORMAL) POC Blood Gas and Chemistries, Venous - (09/05/2024 10:53 PM CDT) pH, Mike POC 7.35 7.32 - 7.43 pCO2, mike POC 48 40 - 50 mmHg [facility] pO2, mike POC <20(C) mmHg [facility] Na, POC 139 135 - 145 mmol/L [facility] K POC 4.0 3.3 - 4.9 mmol/L [facility] Comment: Interpretive Data Not all point of care methods assess for hemolysis. Confirm with instrument and retest K+ if not consistent with clinical signs and symptoms. Current Interpretive Data was last revised on 2023. Cl, POC 106 97 - 110 mmol/L [facility] Ionized Ca, POC 4.86 4.50 - 5.10 mg/dL [facility] Glucose, POC 106 70 - 199 mg/dL [facility] Lactate POC 2.4(H) 0.7 - 2.0 mmol/L [facility] MetHb, Mike POC 0.3 0.0 - 1.9 % [facility] O2 Sat, Mike POC (Ra) 22 % [facility] Base excess, POC 0.1 mmol/L [facility] Hct, POC 50.0 41.4 - 51.6 % [facility] Total Hb, POC 16.8 13.8 - 17.2 g/dL [facility] Blood 09/05/2024 10:5 3 PM CDT 09/05/2024 10:53 PM CDT Result [facility] Lisa Ibarra MD LAB POCT ORDERABLES - DEVICE Final Result Performing Organization Address [facility] Co de Phone Number [facility] Department [place] [employer] [place] [address] * Troponin I high-sensitivity series (baseline, 2hr, 4hr, 6hr) (09/05/2024 10:51 PM CDT) Pathologist [facility] Trop I hs 12 <=35 ng/L Comment: Interpretive Data For further hscTnI resources including the diagnostic algorithm and an aid in interpretation, copy and paste this link: [email or web address]/[email or web address] Current Interpretive Data last revised 2019. Blood 09/05/2024 10:5 1 PM CDT 09/05/2024 11:05 PM CDT Ravi Weaver MD LAB BLOOD ORDERABLES Final Result Performing Organization Address City/[facility]/ZIP Co de Phone Number [facility] Department [place] [employer] [place] [address] * (ABNORMAL) Lactate (09/05/2024 10:51 PM CDT) Lactate 2.4(H) 0.7 - 2.0 mmol/L Blood 09/05/2024 10:5 1 PM CDT 09/05/2024 11:06 PM CDT Ravi Weaver MD LAB BLOOD ORDERABLES Final Result Performing Organization Address City/[facility]/ZIP Co de Phone Number [facility] [place] [address] * eGFR (09/05/2024 10:51 PM CDT) eGFR 70 >=60 mL/min/1. 73 m2 Comment: Interpretive Data [...] interpretive data was last reviewed 2021. Blood 09/05/2024 10:5 1 PM CDT 09/05/2024 11:05 PM CDT Ravi Weaver MD LAB BLOOD ORDERABLES Final Result Performing Organization Address City/[facility]/ZIP Co de Phone Number [facility] [place] [address] * Differential, auto (09/05/2024 10:51 PM CDT) Neutrophil abs 5.58 1.50 - 6.50 K/cumm Imm gran abs 0.02 0.00 - 0.10 K/cumm [facility] Lymphocyte abs 1.96 0.80 - 3.30 K/cumm [facility] Monocyte abs 0.53 0.20 - 0.80 K/cumm [facility] Eosinophil abs 0.01 0.00 - 0.50 K/cumm [facility] Basophil abs 0.04 0.00 - 0.10 K/cumm [facility] Neutrophil pct 68.6 % [facility] Comment: Interpretive Data Percent cell count reference ranges are not reported, since discordance with absolute values may lead to misinterpretation of CBC data. Current Interpretive Data was last revised on 2017. Imm gran pct 0.2 % [facility] Comment: Interpretive Data Percent cell count reference ranges are not reported, since discordance with absolute values may lead to misinterpretation of CBC data. Current Interpretive Data was last revised on 2017. Lymphocyte pct 24.1 % [facility] Comment: Interpretive Data Percent cell count reference ranges are not reported, since discordance with absolute values may lead to misinterpretation of CBC data. Current Interpretive Data was last revised on 2017. Monocyte pct 6.5 % [facility] Comment: Interpretive Data Percent cell count reference ranges are not reported, since discordance with absolute values may lead to misinterpretation of CBC data. Current Interpretive Data was last revised on 2017. Eosinophil pct 0.1 % [facility] Comment: Interpretive Data Percent cell count reference ranges are not reported, since discordance with absolute values may lead to misinterpretation of CBC data. Current Interpretive Data was last revised on 2017. Basophil pct 0.5 % [facility] Comment: Interpretive Data Percent cell count reference ranges are not reported, since discordance with absolute values may lead to misinterpretation of CBC data. Current Interpretive Data was last revised on 2017. Blood 09/05/2024 10:5 1 PM CDT 09/05/2024 11:05 PM CDT us Ravi Weaver MD LAB BLOOD ORDERABLES Final Result [facility] [place] [address] * (ABNORMAL) Pro B-type natriuretic peptide (09/05/2024 10:51 PM CDT) NT-proBNP 920(H) <=300 pg/mL Comment: Interpretive Comments: A. Dyspnea in Acute Care Setting All Ages: < 300 pg/ml, acute heart failure unlikely. < 50 yrs: 300 - 450 pg/ml, further investigation warranted. > 450 pg/ml, acute heart failure likely. 50 - 74 yrs: 300 - 900 pg/ml, further investigation warranted. > 900 pg/ml, acute heart failure likely . > or = 75 yrs: 450 - 1800 pg/ml, further investigation warranted. > 1800 pg/ml, acute heart failure likely. B. Non-acute Setting < 75 yrs < 125 pg/ml, rules out heart failure. > or = 125 pg/ml, further investigation warranted. > or = 75 yrs < 450 pg/ml, rules out heart failure. > or = 450 pg/ml, further investigation warranted. - Knowledge of each individual patient's NT-proBNP range may be more useful than using similar cut-points for every patient. Please note that marked elevations in NT-proBNP levels may be observed in state other than Left Ventricular Congestive Failure, including: acute coronary syndromes, right heart strain/failure (including pulmonary embolism and cor pulmonale), critical illness, renal failure, as well as advanced age. - References: 1. Bernabe BAILEY et.al. Eur Heart J. 2006:27:330-337. 2. Thong RW, Satish HEART. J. AM Beverley Cardiol: Cardiovasc Imag. 2009;2: 216- 225. Interpretive Data Last Revised Date: 2017. Blood 09/05/2024 10:5 1 PM CDT 09/05/2024 11:05 PM CDT us Ravi Weaver MD LAB BLOOD ORDERABLES Final Result [facility] Department of Laboratories [place], [place] [id number] * (ABNORMAL) CBC with auto differential (09/05/2024 10:51 PM CDT) WBC 8.14 3.80 - 9.90 K/cumm Hgb 16.7 13.0 - 17.5 g/dL [facility] Hct 47.2 38.9 - 50.3 % [facility] Plt 201 150 - 400 K/cumm [facility] MPV 8.9(L) 9.1 - 12.3 fL [facility] RBC 5.20 4.30 - 5.80 M/cumm [facility] MCV 90.8 81.3 - 96.4 fL [facility] MCH 32.1 27.1 - 33.3 pg [facility] MCHC 35.4 32.3 - 35.7 g/dL [facility] RDW CV 13.2 11.1 - 14.9 % [facility] RDW SD 43.7 35.7 - 48.1 fL [facility] NRBC abs 0.00 0.00 - 0.01 K/cumm [facility] Blood 09/05/2024 10:5 1 PM CDT 09/05/2024 11:05 PM CDT us Ravi Weaver MD LAB BLOOD ORDERABLES Final Result [facility] [place] [address] * D-dimer, quantitative (09/05/2024 10:51 PM CDT) D-Dimer 342 <=499 ng/mL FEU Comment: Interpretive data FDA approved the D-dimer, in conjunction with a low or moderate pretest probability score, to exclude venous thromboembolic events (VTE) (PE and DVT) in outpatients when the D-dimer result is < 500 ng/ml FEU. Evidence supports using an age-adjusted D-dimer cut-off for outpatients older than 50 (age x 10) to improve specificity without sacrificing sensitivity. Example: age 68, VTE cut-off 680 ng/ml FEU. References; Schoutyuan HT et al. Brit Med J. 2013;346:f2492. Beverly et al. Annals Int Med. 2015;163:701-11. Current interpretive data was last revised on 2019. Blood 09/05/2024 10:5 1 PM CDT 09/05/2024 11:49 PM CDT Ravi Weaver MD LAB BLOOD ORDERABLES Final Result Performing Organization Address [facility] de Phone Number [facility] [place] [address] * Magnesium (09/05/2024 10:51 PM CDT) Magnesium 2.2 1.4 - 2.5 mg/dL Blood 09/05/2024 10:5 1 PM CDT 09/05/2024 11:05 PM CDT Lisa Ibarra MD LAB BLOOD ORDERABLES Final R esult Performing Organization Address [facility] de Phone Number [facility] [place] [address] * Lipase (09/05/2024 10:51 PM CDT) Lipase 52 10 - 99 Units/L Blood 09/05/2024 10:5 1 PM CDT 09/05/2024 11:05 PM CDT Ravi Weaver MD LAB BLOOD ORDERABLES Final Result Performing Organization Address [facility] [place] [address] * Creatine kinase (CK), total (09/05/2024 10:51 PM CDT) CK 118 40 - 300 Units/L Blood 09/05/2024 10:5 1 PM CDT 09/05/2024 11:05 PM CDT Lisa Ibarra MD LAB BLOOD ORDERABLES Final R esult Performing Organization Address City/[facility]/ZIP Co de Phone Number [facility] [place] [address] * (ABNORMAL) Bilirubin, direct (09/05/2024 10:51 PM CDT) Bilirubin, direct 0.5(H) 0.1 - 0.3 mg/dL Blood 09/05/2024 10:5 1 PM CDT 09/05/2024 11:05 PM CDT us Christine Rossi MD LAB BLOOD ORDERABLES Final R esult Performing Organization Address [facility] [place] Co de Phone Number [facility] Department [place] [address] * (ABNORMAL) Comprehensive metabolic panel (09/05/2024 10:51 PM CDT) [facility] Sodium 141 135 - 145 mmol/L Potassium, pl 4.3 3.3 - 4.9 mmol/L [facility] Chloride 103 97 - 110 mmol/L [facility] CO2 25 22 - 32 mmol/L [facility] Anion gap 13 2 - 15 mmol/L [facility] BUN 27(H) 6 - 25 mg/dL [facility] Creatinine 1.19 0.80 - 1.30 mg/dL [facility] Glucose 99 70 - 199 mg/dL [facility] Comment: Interpretive Data Fasting glucose >/= [...] interpretive data was last revised 2022. Calcium 9.9 8.5 - 10.3 mg/dL [facility] Bilirubin, total 2.9(H) 0.1 - 1.2 mg/dL [facility] Protein, pl 7.6 6.5 - 8.5 g/dL [facility] Albumin 4.7 3.5 - 5.0 g/dL [facility] Alk phos 56 40 - 130 Units/L [facility] ALT 29 7 - 55 Units/L [facility] AST 32 10 - 50 Units/L [facility] Blood 09/05/2024 10:5 1 PM CDT 09/05/2024 11:05 PM CDT us Ravi Weaver MD LAB BLOOD ORDERABLES Final Result [facility] Department [place] [address] * (ABNORMAL) ECG 12-LEAD (09/05/2024 10:34 PM CDT) Narrative [facility] - 09/05/2024 10:34 PM CDT Haydee Piedra MD 09/05/2024 10:36 PM ECG 12 lead Date/Time: 09/05/2024 10:34 PM Performed by: Haydee Piedra MD Authorized by: Frandy Almanzar MD Rate: ECG rate: 123 ECG rate assessment: tachycardic Rhythm: Rhythm: atrial fibrillation Ectopy: Ectopy: none QRS: QRS intervals: Wide Conduction: Conduction: abnormal Abnormal conduction: complete RBBB Abnormal conduction comment: Complete RBBB, previously incomplete/narrow complex ST segments: ST segments: Non-specific T waves: T waves: non-specific Previous ECG: Previous ECG: Compared to current Date of previous EC06/28/2024 Comparison ECG info: Previously afib with slow ventricular response and incomplete RBBB, now afib with RVR and complete RBBB Similarity: Changes noted Interpretation: Interpretation: abnormal Recommended Follow-up: Recommended follow up: further workup in the ED Procedure Note Haydee Piedra MD - 09/05/2024 10:34 PM CDT Procedure ECG 12 lead Date/Time: 09/05/2024 10:34 PM Performed by: Haydee Piedra MD Authorized by: Frandy Almanzar MD Rate: ECG rate: 123 ECG rate assessment: tachycardic Rhythm: Rhythm: atrial fibrillation Ectopy: Ectopy: none QRS: QRS intervals: Wide Conduction: Conduction: abnormal Abnormal conduction: complete RBBB Abnormal conduction comment: Complete RBBB, previouslyincomplete/narrow complex ST segments: ST segments: Non-specific T waves: T waves: non-specific Previous ECG: Previous ECG: Compared to current Date of previous EC06/28/2024 Comparison ECG info: Previously afib with slow ventricular response andincomplete RBBB, now afib with RVR and complete RBBB Similarity: Changes noted Interpretation: Interpretation: abnormal Recommended Follow-up: Recommended follow up: further workup in the ED Haydee Piedra MD 09/05/242235 us Lisa Ibarra MD ECG ORDERABLES Final Result Performing Organization Address City/[facility]/ZIP Co de Phone Number [facility] * Hepatitis panel, acute Blood (06/29/2024 11:13 AM CDT) Hep A IgM Nonreactive Nonreactive Hep B core IgM Nonreactive Nonreactive [facility] Hep C Ab Nonreactive Nonreactive [facility] Comment:Antibodies to HCV no t detected. Does NOT exclude the possibility of recent exposure to HCV. Current interpretive data was last revised on 21 HepBsAg Nonreactive Nonreactive [facility] Blood 06/29/2024 11:1 3 AM CDT 06/29/2024 12:25 PM CDT us Samantha Obrien MD LAB MICROBIOLOGY - GENERAL ORDERABLES Final Result Performing Organization Address City/[facility] Co de Phone Number [facility] Department [place] [address] from Last 3 Months or Most Recently Relevant to Health Maintenance Insurance [facility] MEDICARE ADVANTAGE MEDICARE [facility] Address: [address] [address] [place] [address] [employer] MANAGED MEDICARE GENERIC RISK OTHER [facility] MEDICARE ADVANTAGE [facility] MEDICARE ADVANTAGE Advance Directives For more information, please contact: [phone] * Full Code (Latest Code Status on File) Date Activated Date Inactivated Comments 09/06/2024 11:11 AM 09/17/2024 6:58 PM * Full Code Date Activated Date Inactivated Comments 06/28/2024 9:57 PM 06/30/2024 7:14 PM Care Teams Education Managers Relationship Specialty Start Date End Date Louis Hewitt MD PCP - General Family Medicine 01/12/20
--- OUTSIDE RECORDS SUMMARY | 2024-10-02 10:03 | XMS_ITS | Clinical Summary ---
Author Organization [facility] Address [address] [place] [address] Care Team Providers Care Process Assistant Name Role Phone Louis Hewitt MD Primary Care Provider + [phone] Allergies Active Allergy Reactions Criticality Noted Date [...] wnl 06/2024, Hgb 16.7, plt 201 -Aphos/AST/ALT > -tBili 2.9 > 2.4 > 1.7 [...] wnl 06/2024, Hgb 16.7, plt 201 -Aphos/AST/ALT > -tBili 2.9 > 2.4 > 1.7 [...] 52// -tBili 2.9 > 2.4 > 1.7 -In [...] 56/32/29 > 52// -tBili 2.9 > 2.4 -In this patient [...] all without solid BM -patient ordered golytely 16pm, completed about 30%, still without BM and [...] with evidence of stool burden -TSH 2.14 -/15am with passage of watery stool, suspecting patient [...] orthopnea component -CTPE negative for acute process -6/16am breathing comfortably Assessment & Plan (09/07/2024 11:07 [...] treatment response BMI 27.0-27.9,adult 05/14/2020 11/27/19 21 Encounters Date Type Department Care Team Description 09/22/2024 SHOP/CHAP Initial Outreach [facility] OP CASE MANAGEMENT [address] [place] [address] Margarita Stoner, RAFAELA 09/19/2024 SHOP/CHAP Initial Outreach [facility] OP CASE MANAGEMENT [address] [place] [address] Margarita Stoner, RAFAELA 09/18/2024 SHOP/CHAP Initial Outreach [facility] OP CASE MANAGEMENT [address] [place] [address] Margarita Stoner, RAFAELA 09/18/2024 SHOP/CHAP Initial Eligibility Review [facility] OP CASE MANAGEMENT [address] [place] [id number] Margarita Stoner, RAFAELA 09/17/2024 Telephone [facility] Cardiology [address] [place] [address] Medical Office Building [address] [place] [phone] Bess Lim MD ACHD f/u appt with Echo 09/15/2024 11:45 AM CDT - 09/15/2024 1:35 PM CDT Surgery [facility] [address] [place] [phone] Tin Calvert MD PhD ATRIAL SEPTAL DEFECT (ASD), PATENT FORAMEN OVALE (PFO), FENESTRATION CLOSURE [id number] 09/15/2024 Documentation [facility] Case Management [address] [place] [phone] Jazmin Fields, RAFAELA 09/08/2024 Telephone [facility] Cardiology [address] 8[address] [place] [address] [place] [phone] Taylor Last 09/05/2024 10:37 PM CDT - 09/17/2024 2:30 PM CDT Hospital Encounter [facility] [address] [place] [address] Lisa Ibarra MD Chan, Philip, MD Freilich, MD Thomas Albert, MD Flo Garnica, MD Ayaz Santana, Vince Doan MD Tachycardia (Primary Dx); NAFLD (nonalcoholic fatty liver disease); Essential hypertension; Paroxysmal atrial fibrillation (HCC); Hyperbilirubinemia; ASD (atrial septal defect), ostium secundum Discharge Disposition: Discharge to home or self care 07/04/2024 SHOP/CHAP Initial Outreach [facility] OP CASE MANAGEMENT [address] [place] [address] Margarita Stoner RN from Last 3 Months Surgical History Surgery Date Site/Laterality Comments ABLATION 03/26/2015 - 03/25/2016 APPENDECTOMY HERNIA REPAIR 03/26/2015 - 03/25/2016 VASECTOMY CARDIAC CATHETERIZATION 09/15/2024 N/A Procedure: ATRIAL SEPTAL DEFECT (ASD), PATENT FORAMEN OVALE (PFO), FENESTRATION CLOSURE [id number]; Surgeon: Tin Calvert MD PhD; 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 Never 09/09/2024 Do you belong to any clubs o r organizations such as quaker groups, unions, fraternal or athletic groups, or [...] any time in the past 12 [facility], were you homeless or living in a m[facility]p (including now)? No 09/09/2024 Personal Safety Answer Date Recorded Have you ever been in or are you currently in a harmful physical or emotional relationship or is someone making you feel afraid or unsafe? Denies 09/15/2024 Sex and Gender Information Value Date Recorded Sex Assigned at Not on file Legal Sex Male 11:14 PM BOARD OF DIRECTORS Gender Identity Not on file Sexual Orientation [...] 09/08/2024 4:23 PM CDT Plan of Treatment Health Maintenance [...] 2024 Hepatitis C Screening Completed 06/29/2024, 021 Medical Devices Implanted Type Area Dynamometer Repairer Device Identifier Shelf Expiration Date Model / Serial / Lot [employer] Amplatzer 38mm 48-54mm 4mm 2 Disk Self Expandable Radiopaque Band Latex Free 9-Asd-038 - [id number] - [id number] Implanted:Qty: 1 on 09/15/2024 by Tin Calvert MD PhD at [facility] Septal Defect Closure Device N/A: Atrial Septal Defect [employer] 02/22/2029 9-ASD-038 / [id number] / [id number] [employer] System Closure Repair Femoral Artery Suture Mediated Perclose Prostyle 74420-03 - [id number] - [id number] Implanted:Qty: 1 on 09/15/2024 by Tin Calvert MD PhD at [facility] Vascular Closure Device Right: Femoral Vein [employer] 07/23/2026 [id number] / [id number] / [id number] [employer] System Closure Repair Femoral Artery Suture Mediated Perclose Prostyle 03715-61 - [id number] - [id number] Implanted:Qty: 1 on 09/15/2024 by Tin Calvert MD PhD at [facility] Vascular Closure Device Left: Femoral Vein [employer] 07/23/2026 39074-73 / [id number] / [id number] [employer] Angio-Seal Vip 6fr Closere Device [id number] - [id number] - [id number] Implanted:Qty: 1 on 09/15/2024 by Tin Calvert MD PhD at [facility] Vascular Closure Device Left: Femoral Vein [employer] 05/19/2025 [id number] / [id number] / [id number] Procedures Procedure Name Priority Date/Time Associated [...] MD LAB BLOOD ORDERABLES Final R esult [facility] Department [place] [address] * Differential, auto (09/16/2024 9:30 PM CDT) Pathologist [facility] Neutrophil abs 3.60 1.50 - 6.50 K/cumm Imm gran abs 0.02 0.00 - 0.10 K/cumm [facility] Lymphocyte abs 1.89 0.80 - 3.30 K/cumm [facility] Monocyte abs 0.47 0.20 - 0.80 K/cumm [facility] Eosinophil abs 0.05 0.00 - 0.50 K/cumm [facility] Basophil abs 0.05 0.00 - 0.10 K/cumm [facility] Neutrophil pct 59.3 % [facility] Comment: Interpretive Data Percent cell count reference ranges are not reported, since discordance with absolute values may lead to misinterpretation of CBC data. Current Interpretive Data was last revised on 2017. Imm gran pct 0.3 % [facility] Comment: Interpretive Data Percent cell count reference ranges are not reported, since discordance with absolute values may lead to misinterpretation of CBC data. Current Interpretive Data was last revised on 2017. Lymphocyte pct 31.1 % [facility] Comment: Interpretive Data Percent cell count reference ranges are not reported, since discordance with absolute values may lead to misinterpretation of CBC data. Current Interpretive Data was last revised on 2017. Monocyte pct 7.7 % [facility] Comment: Interpretive Data Percent cell count reference ranges are not reported, since discordance with absolute values may lead to misinterpretation of CBC data. Current Interpretive Data was last revised on 2017. Eosinophil pct 0.8 % [facility] Comment: Interpretive Data Percent cell count reference ranges are not reported, since discordance with absolute values may lead to misinterpretation of CBC data. Current Interpretive Data was last revised on 2017. Basophil pct 0.8 % [facility] Comment: Interpretive Data Percent cell count reference ranges are not reported, since discordance with absolute values may lead to misinterpretation of CBC data. Current Interpretive Data was last revised on 2017. Blood 09/16/2024 9:30 PM CDT 09/16/2024 10:23 PM CDT us Christine Rossi MD LAB BLOOD ORDERABLES Final R esult [facility] Department [place] [address] * (ABNORMAL) CBC with auto differential (09/16/2024 9:30 PM CDT) WBC 6.08 3.80 - 9.90 K/cumm Hgb 13.2 13.0 - 17.5 g/dL [facility] Hct 37.9(L) 38.9 - 50.3 % [facility] Plt 173 150 - 400 K/cumm [facility] MPV 8.9(L) 9.1 - 12.3 fL [facility] RBC 4.11(L) 4.30 - 5.80 M/cumm [facility] MCV 92.2 81.3 - 96.4 fL [facility] MCH 32.1 27.1 - 33.3 pg [facility] MCHC 34.8 32.3 - 35.7 g/dL [facility] RDW CV 13.6 11.1 - 14.9 % [facility] RDW SD 46.1 35.7 - 48.1 fL [facility] NRBC abs 0.00 0.00 - 0.01 K/cumm [facility] Blood 09/16/2024 9:30 PM CDT 09/16/2024 10:23 PM CDT us Christine Rossi MD LAB BLOOD ORDERABLES Final R esult [facility] Department [place] [address] * (ABNORMAL) Comprehensive metabolic panel (09/16/2024 9:30 PM CDT) Sodium 139 135 - 145 mmol/L Potassium, pl 4.2 3.3 - 4.9 mmol/L [facility] Chloride 103 97 - 110 mmol/L [facility] CO2 28 22 - 32 mmol/L [facility] Anion gap 8 2 - 15 mmol/L [facility] BUN 17 6 - 25 mg/dL [facility] Creatinine 0.98 0.80 - 1.30 mg/dL [facility] Glucose 99 70 - 199 mg/dL [facility] Comment: Interpretive Data Fasting glucose [...] 2022. Calcium 9.1 8.5 - 10.3 mg/dL [facility] Bilirubin, total 0.7 0.1 - 1.2 mg/dL [facility] Protein, pl 6.4(L) 6.5 - 8.5 g/dL [facility] Albumin 4.0 3.5 - 5.0 g/dL [facility] Alk phos 50 40 - 130 Units/L [facility] ALT 34 7 - 55 Units/L [facility] AST 23 10 - 50 Units/L [facility] Blood 09/16/2024 9:30 PM CDT 09/16/2024 10:23 PM CDT us Christine Rossi MD LAB BLOOD ORDERABLES Final R esult [facility] Department [place] [address] * TRANSTHORACIC ECHO (TTE) LIMITED/FOLLOW UP W LTD DOPPLER/CF W CONTRAST W BUBBLE (09/16/2024 12:21 PM CDT) EF Mod BP 64 % CONS SCIMAGE Anatomical Region Laterality Modality Ultrasound 09/16/2024 11:1 5 AM CDT Narrative 09/16/2024 12:52 PM CDT [facility] Cardiac [place] [address] Transthoracic Echocardiographic Report Patient Name: MIGUELITO LOPES : 1965 (59y ) Gender: M Study Date: 09/16/2024 11:15:35 AM Ht(Inch): 65 Wt(Lb): 121.03 BSA: 1.59 Diesel Service Apprentice: Javi Marte RDCS Location: [id number] Order Provider: GIULIA GALLAGHER Heart Rate: 81 [...] Procedure Note Binu Urban MD - 09/16/2024 [facility] Cardiac Diagnostic Lab [address] [id number] Transthoracic Echocardiographic Report Patient Name: MIGUELITO LOPES : 1965 (59y ) Gender: M Study Date: 09/16/2024 11:15:35 AM Ht(Inch): 65 Wt(Lb): 121.03 BSA: 1.59 Diesel Service Apprentice: Javi Marte RDCS Location: [id number] Order Provider: GIULIA GALLAGHER Heart Rate: 81 [...] LA Length 4C 8.30 cm MV Decel Kvfj095.84 msec [ 104.00 - 258.00 ] LA [...] Jacome MD LAB BLOOD ORDERABLES Final Result [facility] Department [place] [address] * Differential, auto (09/15/2024 8:29 PM CDT) Neutrophil abs 4.26 1.50 - 6.50 K/cumm Imm gran abs 0.01 0.00 - 0.10 K/cumm [facility] Lymphocyte abs 1.51 0.80 - 3.30 K/cumm [facility] Monocyte abs 0.32 0.20 - 0.80 K/cumm [facility] Eosinophil abs 0.01 0.00 - 0.50 K/cumm [facility] Basophil abs 0.04 0.00 - 0.10 K/cumm [facility] Neutrophil pct 69.1 % [facility] Comment: Interpretive Data Percent cell count reference ranges are not reported, since discordance with absolute values may lead to misinterpretation of CBC data. Current Interpretive Data was last revised on 2017. Imm gran pct 0.2 % [facility] Comment: Interpretive Data Percent cell count reference ranges are not reported, since discordance with absolute values may lead to misinterpretation of CBC data. Current Interpretive Data was last revised on 2017. Lymphocyte pct 24.6 % [facility] Comment: Interpretive Data Percent cell count reference ranges are not reported, since discordance with absolute values may lead to misinterpretation of CBC data. Current Interpretive Data was last revised on 2017. Monocyte pct 5.2 % [facility] Comment: Interpretive Data Percent cell count reference ranges are not reported, since discordance with absolute values may lead to misinterpretation of CBC data. Current Interpretive Data was last revised on 2017. Eosinophil pct 0.2 % [facility] Comment: Interpretive Data Percent cell count reference ranges are not reported, since discordance with absolute values may lead to misinterpretation of CBC data. Current Interpretive Data was last revised on 2017. Basophil pct 0.7 % [facility] Comment: Interpretive Data Percent cell count reference ranges are not reported, since discordance with absolute values may lead to misinterpretation of CBC data. Current Interpretive Data was last revised on 2017. Blood 09/15/2024 8:29 PM CDT 09/15/2024 10:00 PM CDT us Christine Rossi MD LAB BLOOD ORDERABLES Final R esult Performing Organization Address City/[facility]/ZIP Co de Phone Number [facility] [place] [place] [address] * (ABNORMAL) CBC with auto differential (09/15/2024 8:29 PM CDT) WBC 6.15 3.80 - 9.90 K/cumm Hgb 13.1 13.0 - 17.5 g/dL [facility] Hct 36.6(L) 38.9 - 50.3 % [facility] Plt 181 150 - 400 K/cumm [facility] MPV 9.3 9.1 - 12.3 fL [facility] RBC 4.06(L) 4.30 - 5.80 M/cumm [facility] MCV 90.1 81.3 - 96.4 fL [facility] MCH 32.3 27.1 - 33.3 pg [facility] MCHC 35.8(H) 32.3 - 35.7 g/dL [facility] RDW CV 13.5 11.1 - 14.9 % [facility] RDW SD 44.7 35.7 - 48.1 fL [facility] NRBC abs 0.00 0.00 - 0.01 K/cumm [facility] Blood 09/15/2024 8:29 PM CDT 09/15/2024 10:00 PM CDT us Christine Rossi MD LAB BLOOD ORDERABLES Final R esult [facility] [place] [place] [address] * Protime-INR (09/15/2024 8:29 PM CDT) [facility] PT 12.2 9.7 - 13.0 sec INR 1.13 0.90 - 1.20 [facility] Comment: Interpretive data Oral anticoagulant [...] ORDERABLES Final R esult Performing Organization Address City/[facility]/ZIP Co de Phone Number [facility] Department [place] [address] * (ABNORMAL) Bilirubin, direct (09/15/2024 8:29 PM CDT) [facility] Bilirubin, direct 0.4(H) 0.1 - 0.3 mg/dL Blood 09/15/2024 8:29 PM CDT 09/15/2024 9:58 PM CDT us Vince Jacome MD LAB BLOOD ORDERABLES Final Result [facility] [place] [address] * (ABNORMAL) Comprehensive metabolic panel (09/15/2024 8:29 PM CDT) [facility] Sodium 139 135 - 145 mmol/L Potassium, pl 3.5 3.3 - 4.9 mmol/L [facility] Chloride 105 97 - 110 mmol/L [facility] CO2 25 22 - 32 mmol/L [facility] Anion gap 9 2 - 15 mmol/L [facility] BUN 17 6 - 25 mg/dL [facility] Creatinine 0.93 0.80 - 1.30 mg/dL [facility] Glucose 191 70 - 199 mg/dL [facility] Comment: Interpretive Data Fasting glucose [...] 2022. Calcium 8.6 8.5 - 10.3 mg/dL [facility] Bilirubin, total 1.2 0.1 - 1.2 mg/dL [facility] Protein, pl 6.0(L) 6.5 - 8.5 g/dL [facility] Albumin 3.6 3.5 - 5.0 g/dL [facility] Alk phos 47 40 - 130 Units/L [facility] ALT 37 7 - 55 Units/L [facility] AST 23 10 - 50 Units/L [facility] Blood 09/15/2024 8:29 PM CDT 09/15/2024 9:58 PM CDT us Vince Jacome MD LAB BLOOD ORDERABLES Final Result [facility] Department [place] [address] * XR Chest 1 View (09/15/2024 5:53 [...] signed by: Jewels Barrett M.D. Giulia Gallagher NP IMG XR PROCEDURES Grace l Result * [...] Using ultrasound directed micropuncture technique and 8 Omani 25 cm sheath inserted into the left femoral vein using percutaneous approach. A 12 Omani cook sheath inserted into the right femoral vein using percutaneous approach. Two 6 O[place]i pro glides were placed prior to sheath insertion. Heparin was administered to maintain ACT of 300 seconds or greater. A balloon tip Arrow catheter was advanced to the right pulmonary artery for O2 saturations and hemodynamics. Imaging was performed via the left femoral vein with a 8 O[place]i [employer] intracardiac echo system. The interatrial septum was readily crossed with a 1.5 mm J-tip Amplatzer wire and a multipurpose catheter this was exchanged for a 34 mm sizing balloon. Sizing balloon was exchanged for a 12 [place]mani torque view sheath. 38 mm Amplatzer ASD occluder was deployed after multiple attempts across the interatrial septum. Upon completion of the case the 12 Omani right venous sheath was removed and a Perclose system cinched. The 8 Omani sheath in the left femoral vein was removed with some bleeding that required an additional 6 [place] Angio-Seal to be deployed. Manual compression was [...] inflated until there is no evidence of totu-kg-jaoye flow by intra cardiac echo Doppler. Both [...] stable for 20 minutes. A 70 degree PERSIAN projection shows adequate splay anteriorly and compression [...] echo should be followed in 2-3 months. us Christine Rossi MD CV CARDIAC CATH PROCEDURES F inal Result * (ABNORMAL) POCT Activated clotting time, low range (09/15/2024 2:01 PM CDT) ACT 266(H) 123 - 168 sec POC Performer [id number] [facility] POC Device Number [id number] [facility] Blood 09/15/2024 2:01 PM CDT 09/15/2024 2:01 PM CDT Vince Jacome MD LAB POCT ORDERABLES - DEVIC E Final Result Performing Organization Address City/[facility] Co de Phone Number [facility] [place] [address] * POCT oxyhemoglobin (09/15/2024 1:23 PM CDT) HOUSING MANAGEMENT REPRESENTATIVE Oxyhemoglobin 86.3 >=65.0 % HOUSING MANAGEMENT REPRESENTATIVE Hemoglobin 13.2 13.0 - 17.5 g/dL [facility] HOUSING MANAGEMENT REPRESENTATIVE O2 content 15.9 15.0 - 22.0 Vol % [facility] Anatomic Site aPOC Pulm Artery [facility] Blood 09/15/2024 1:23 PM CDT 09/15/2024 1:23 PM CDT Vince Jacome MD LAB POCT ORDERABLES - DEVIC E Final Result Performing Organization Address [facility] Co de Phone Number [facility] [place] [place] [address] * POCT oxyhemoglobin (09/15/2024 1:23 PM CDT) Pathologist [facility] HOUSING MANAGEMENT REPRESENTATIVE Oxyhemoglobin 88.2 >=65.0 % HOUSING MANAGEMENT REPRESENTATIVE Hemoglobin 13.3 13.0 - 17.5 g/dL [facility] HOUSING MANAGEMENT REPRESENTATIVE O2 content 16.3 15.0 - 22.0 Vol % [facility] Anatomic Site aPOC Pulm Artery [facility] Blood 09/15/2024 1:23 PM CDT 09/15/2024 1:23 PM CDT Vince Jacome MD LAB POCT ORDERABLES - DEVIC E Final Result Performing Organization Address City/[facility] [place] [address] * (ABNORMAL) POCT Activated clotting time, low range (09/15/2024 1:18 PM CDT) ACT 287(H) 123 - 168 sec POC Performer [id number] [facility] POC Device Number [id number] [facility] Blood 09/15/2024 1:18 PM CDT 09/15/2024 1:18 PM CDT Vince Jacome MD LAB POCT ORDERABLES - DEVIC E Final Result Performing Organization Address [facility] de Phone Number [facility] [place] [address] * POCT oxyhemoglobin (09/15/2024 1:17 PM CDT) HOUSING MANAGEMENT REPRESENTATIVE Oxyhemoglobin 88.0 >=65.0 % HOUSING MANAGEMENT REPRESENTATIVE Hemoglobin 13.5 13.0 - 17.5 g/dL [facility] HOUSING MANAGEMENT REPRESENTATIVE O2 content 16.5 15.0 - 22.0 Vol % [facility] Anatomic Site aPOC Pulmonary Vein [facility] Blood 09/15/2024 1:17 PM CDT 09/15/2024 1:17 PM CDT Vince Jacome MD LAB POCT ORDERABLES - DEVIC E Final Result Performing Organization Address [facility] [place] [address] * POCT oxyhemoglobin (09/15/2024 1:16 PM CDT) HOUSING MANAGEMENT REPRESENTATIVE Oxyhemoglobin 89.9 >=65.0 % HOUSING MANAGEMENT REPRESENTATIVE Hemoglobin 13.3 13.0 - 17.5 g/dL [facility] HOUSING MANAGEMENT REPRESENTATIVE O2 content 16.7 15.0 - 22.0 Vol % [facility] Anatomic Site aPOC Pulmonary Vein [facility] Blood 09/15/2024 1:16 PM CDT 09/15/2024 1:16 PM CDT Vince Jacome MD LAB POCT ORDERABLES - DEVIC E Final Result Performing Organization Address City/[facility] Co de Phone Number [facility] [place] [place] [address] * (ABNORMAL) POCT oxyhemoglobin (09/15/2024 1:15 PM CDT) HOUSING MANAGEMENT REPRESENTATIVE Oxyhemoglobin 81.5 >=65.0 % HOUSING MANAGEMENT REPRESENTATIVE Hemoglobin 13.2 13.0 - 17.5 g/dL [facility] HOUSING MANAGEMENT REPRESENTATIVE O2 content 14.9(L) 15.0 - 22.0 Vol % [facility] Anatomic Site aPOC Ventricle right [facility] Blood 09/15/2024 1:15 PM CDT 09/15/2024 1:15 PM CDT Vince Jacome MD LAB POCT ORDERABLES - DEVIC E Final Result Performing Organization Address [facility] [place] [address] * POCT oxyhemoglobin (09/15/2024 1:15 PM CDT) Pathologist [facility] HOUSING MANAGEMENT REPRESENTATIVE Oxyhemoglobin 81.9 >=65.0 % HOUSING MANAGEMENT REPRESENTATIVE Hemoglobin 13.3 13.0 - 17.5 g/dL [facility] HOUSING MANAGEMENT REPRESENTATIVE O2 content 15.1 15.0 - 22.0 Vol % [facility] Anatomic Site aPOC Ventricle right [facility] Blood 09/15/2024 1:15 PM CDT 09/15/2024 1:15 PM CDT Vince Jacome MD LAB POCT ORDERABLES - DEVIC E Final Result Performing Organization Address City/[facility] [place] [address] * (ABNORMAL) POCT Activated clotting time, low range (09/15/2024 1:14 PM CDT) ACT 232(H) 123 - 168 sec POC Performer [id number] [facility] POC Device Number [id number] [facility] Blood 09/15/2024 1:14 PM CDT 09/15/2024 1:14 PM CDT Vince Jacome MD LAB POCT ORDERABLES - DEVIC E Final Result Performing Organization Address [facility] Co de Phone Number [facility] [place] [address] * (ABNORMAL) POCT oxyhemoglobin (09/15/2024 1:13 PM CDT) HOUSING MANAGEMENT REPRESENTATIVE Oxyhemoglobin 67.1 >=65.0 % HOUSING MANAGEMENT REPRESENTATIVE Hemoglobin 12.6(L) 13.0 - 17.5 g/dL [facility] HOUSING MANAGEMENT REPRESENTATIVE O2 content 11.8(L) 15.0 - 22.0 Vol % [facility] Anatomic Site aPOC Sup Vena Cava [facility] Blood 09/15/2024 1:13 PM CDT 09/15/2024 1:13 PM CDT Vince Jacome MD LAB POCT ORDERABLES - DEVIC E Final Result Performing Organization Address [facility] [place] [address] * (ABNORMAL) POCT oxyhemoglobin (09/15/2024 1:11 PM CDT) HOUSING MANAGEMENT REPRESENTATIVE Oxyhemoglobin 64.7(L) >=65.0 % HOUSING MANAGEMENT REPRESENTATIVE Hemoglobin 12.9(L) 13.0 - 17.5 g/dL [facility] HOUSING MANAGEMENT REPRESENTATIVE O2 content 11.6(L) 15.0 - 22.0 Vol % [facility] Anatomic Site aPOC Sup Vena Cava [facility] Blood 09/15/2024 1:11 PM CDT 09/15/2024 1:11 PM CDT Vince Jacome MD LAB POCT ORDERABLES - DEVIC E Final Result Performing Organization Address City/[facility] [place] [address] * (ABNORMAL) POCT oxyhemoglobin (09/15/2024 1:10 PM CDT) HOUSING MANAGEMENT REPRESENTATIVE Oxyhemoglobin 75.8 >=65.0 % HOUSING MANAGEMENT REPRESENTATIVE Hemoglobin 13.0 13.0 - 17.5 g/dL [facility] HOUSING MANAGEMENT REPRESENTATIVE O2 content 13.7(L) 15.0 - 22.0 Vol % [facility] Anatomic Site aPOC Atrium Right [facility] Blood 09/15/2024 1:10 PM CDT 09/15/2024 1:10 PM CDT Vince Jacome MD LAB POCT ORDERABLES - DEVIC E Final Result Performing Organization Address [facility] Co de Phone Number [facility] [place] [place] [address] * (ABNORMAL) POCT oxyhemoglobin (09/15/2024 1:09 PM CDT) HOUSING MANAGEMENT REPRESENTATIVE Oxyhemoglobin 79.4 >=65.0 % HOUSING MANAGEMENT REPRESENTATIVE Hemoglobin 13.4 13.0 - 17.5 g/dL [facility] HOUSING MANAGEMENT REPRESENTATIVE O2 content 14.8(L) 15.0 - 22.0 Vol % [facility] Anatomic Site aPOC Atrium Right [facility] Blood 09/15/2024 1:09 PM CDT 09/15/2024 1:09 PM CDT Vince Jacome MD LAB POCT ORDERABLES - DEVIC E Final Result Performing Organization Address City/[facility] [place] [address] * (ABNORMAL) POCT oxyhemoglobin (09/15/2024 1:08 PM CDT) HOUSING MANAGEMENT REPRESENTATIVE Oxyhemoglobin 64.2(L) >=65.0 % HOUSING MANAGEMENT REPRESENTATIVE Hemoglobin 13.2 13.0 - 17.5 g/dL [facility] HOUSING MANAGEMENT REPRESENTATIVE O2 content 11.8(L) 15.0 - 22.0 Vol % [facility] Anatomic Site aPOC Inf Vena Cava [facility] Blood 09/15/2024 1:08 PM CDT 09/15/2024 1:08 PM CDT Vince Jacome MD LAB POCT ORDERABLES - DEVIC E Final Result Performing Organization Address City/[facility] Co de Phone Number [facility] [place] [employer] [place] [address] * (ABNORMAL) POCT oxyhemoglobin (09/15/2024 1:07 PM CDT) [facility] HOUSING MANAGEMENT REPRESENTATIVE Oxyhemoglobin 67.0 >=65.0 % HOUSING MANAGEMENT REPRESENTATIVE Hemoglobin 13.3 13.0 - 17.5 g/dL [facility] HOUSING MANAGEMENT REPRESENTATIVE O2 content 12.4(L) 15.0 - 22.0 Vol % [facility] Anatomic Site aPOC Inf Vena Cava [facility] Blood 09/15/2024 1:07 PM CDT 09/15/2024 1:07 PM CDT Vince Jacome MD LAB POCT ORDERABLES - DEVIC E Final Result Performing Organization Address City/[facility] Co de Phone Number [facility] [place] [place] [address] * eGFR (09/14/2024 8:25 PM CDT) [facility] eGFR 89 >=60 mL/min/1. 73 m2 Comment: [...] MD LAB BLOOD ORDERABLES Final R esult [facility] Department [place] [address] * Differential, auto (09/14/2024 8:25 PM CDT) Pathologist [facility] Neutrophil abs 4.05 1.50 - 6.50 K/cumm Imm gran abs 0.02 0.00 - 0.10 K/cumm [facility] Lymphocyte abs 2.34 0.80 - 3.30 K/cumm [facility] Monocyte abs 0.37 0.20 - 0.80 K/cumm [facility] Eosinophil abs 0.02 0.00 - 0.50 K/cumm [facility] Basophil abs 0.06 0.00 - 0.10 K/cumm [facility] Neutrophil pct 59.0 % [facility] Comment: Interpretive Data Percent cell count reference ranges are not reported, since discordance with absolute values may lead to misinterpretation of CBC data. Current Interpretive Data was last revised on 2017. Imm gran pct 0.3 % [facility] Comment: Interpretive Data Percent cell count reference ranges are not reported, since discordance with absolute values may lead to misinterpretation of CBC data. Current Interpretive Data was last revised on 2017. Lymphocyte pct 34.1 % [facility] Comment: Interpretive Data Percent cell count reference ranges are not reported, since discordance with absolute values may lead to misinterpretation of CBC data. Current Interpretive Data was last revised on 2017. Monocyte pct 5.4 % [facility] Comment: Interpretive Data Percent cell count reference ranges are not reported, since discordance with absolute values may lead to misinterpretation of CBC data. Current Interpretive Data was last revised on 2017. Eosinophil pct 0.3 % [facility] Comment: Interpretive Data Percent cell count reference ranges are not reported, since discordance with absolute values may lead to misinterpretation of CBC data. Current Interpretive Data was last revised on 2017. Basophil pct 0.9 % [facility] Comment: Interpretive Data Percent cell count reference ranges are not reported, since discordance with absolute values may lead to misinterpretation of CBC data. Current Interpretive Data was last revised on 2017. Blood 09/14/2024 8:25 PM CDT 09/14/2024 8:44 PM CDT us Christine Rossi MD LAB BLOOD ORDERABLES Final R esult [facility] Department of Laboratories [place], [place] [id number] * (ABNORMAL) CBC with auto differential (09/14/2024 8:25 PM CDT) WBC 6.86 3.80 - 9.90 K/cumm Hgb 15.7 13.0 - 17.5 g/dL [facility] Hct 44.7 38.9 - 50.3 % [facility] Plt 196 150 - 400 K/cumm [facility] MPV 8.5(L) 9.1 - 12.3 fL [facility] RBC 4.88 4.30 - 5.80 M/cumm [facility] MCV 91.6 81.3 - 96.4 fL [facility] MCH 32.2 27.1 - 33.3 pg [facility] MCHC 35.1 32.3 - 35.7 g/dL [facility] RDW CV 13.5 11.1 - 14.9 % [facility] RDW SD 45.4 35.7 - 48.1 fL [facility] NRBC abs 0.00 0.00 - 0.01 K/cumm [facility] Blood 09/14/2024 8:25 PM CDT 09/14/2024 8:44 PM CDT us Christine Rossi MD LAB BLOOD ORDERABLES Final R esult Performing Organization Address City/[facility] Co de Phone Number [facility] Department [place] [address] * Magnesium (09/14/2024 8:25 PM CDT) [facility] Magnesium 2.4 1.4 - 2.5 mg/dL Blood 09/14/2024 8:25 PM CDT 09/14/2024 8:44 PM CDT us Christine Rossi MD LAB BLOOD ORDERABLES Final R esult Performing Organization Address [facility] de Phone Number [facility] Department [place] [address] * (ABNORMAL) Comprehensive metabolic panel (09/14/2024 8:25 PM CDT) [facility] Sodium 141 135 - 145 mmol/L Potassium, pl 4.2 3.3 - 4.9 mmol/L [facility] Chloride 104 97 - 110 mmol/L [facility] CO2 28 22 - 32 mmol/L [facility] Anion gap 9 2 - 15 mmol/L [facility] BUN 12 6 - 25 mg/dL [facility] Creatinine 0.97 0.80 - 1.30 mg/dL [facility] Glucose 98 70 - 199 mg/dL [facility] Comment: Interpretive Data Fasting glucose [...] 2022. Calcium 9.5 8.5 - 10.3 mg/dL [facility] Bilirubin, total 1.3(H) 0.1 - 1.2 mg/dL [facility] Protein, pl 6.9 6.5 - 8.5 g/dL [facility] Albumin 4.4 3.5 - 5.0 g/dL [facility] Alk phos 56 40 - 130 Units/L [facility] ALT 51 7 - 55 Units/L [facility] AST 24 10 - 50 Units/L [facility] Blood 09/14/2024 8:25 PM CDT 09/14/2024 8:44 PM CDT us Christine Rossi MD LAB BLOOD ORDERABLES Final R esult Performing Organization Address City/[facility]/ZIP Co de Phone Number [facility] [place] [place] [address] * POCT glucose (09/14/2024 4:32 PM CDT) Glucose, POC 113 70 - 199 mg/dL Blood 09/14/2024 4:32 PM CDT 09/14/2024 4:32 PM CDT us Christine Rossi MD LAB POCT ORDERABLES - DEVICE Final Result [facility] [place] [address] * POCT glucose (09/13/2024 11:23 AM CDT) Glucose, POC 78 70 - 199 mg/dL Blood 09/13/2024 11:2 3 AM CDT 09/13/2024 11:23 AM CDT us Christine Rossi MD LAB POCT ORDERABLES - DEVICE Final Result Performing Organization Address [facility] Co de Phone Number [facility] Department [place] [address] * eGFR (09/12/2024 11:09 PM CDT) Pathologist [facility] eGFR >90 >=60 mL/min/1. 73 m2 Comment: [...] ORDERABLES Final R esult Performing Organization Address City/[facility]/ZIP Co de Phone Number [facility] Department [place] [address] * Differential, auto (09/12/2024 11:09 PM CDT) Pathologist [facility] Neutrophil abs 3.73 1.50 - 6.50 K/cumm Imm gran abs 0.03 0.00 - 0.10 K/cumm [facility] Lymphocyte abs 2.85 0.80 - 3.30 K/cumm [facility] Monocyte abs 0.38 0.20 - 0.80 K/cumm [facility] Eosinophil abs 0.05 0.00 - 0.50 K/cumm [facility] Basophil abs 0.06 0.00 - 0.10 K/cumm [facility] Neutrophil pct 52.6 % [facility] Comment: Interpretive Data Percent cell count reference ranges are not reported, since discordance with absolute values may lead to misinterpretation of CBC data. Current Interpretive Data was last revised on 2017. Imm gran pct 0.4 % [facility] Comment: Interpretive Data Percent cell count reference ranges are not reported, since discordance with absolute values may lead to misinterpretation of CBC data. Current Interpretive Data was last revised on 2017. Lymphocyte pct 40.1 % [facility] Comment: Interpretive Data Percent cell count reference ranges are not reported, since discordance with absolute values may lead to misinterpretation of CBC data. Current Interpretive Data was last revised on 2017. Monocyte pct 5.4 % [facility] Comment: Interpretive Data Percent cell count reference ranges are not reported, since discordance with absolute values may lead to misinterpretation of CBC data. Current Interpretive Data was last revised on 2017. Eosinophil pct 0.7 % [facility] Comment: Interpretive Data Percent cell count reference ranges are not reported, since discordance with absolute values may lead to misinterpretation of CBC data. Current Interpretive Data was last revised on 2017. Basophil pct 0.8 % [facility] Comment: Interpretive Data Percent cell count reference ranges are not reported, since discordance with absolute values may lead to misinterpretation of CBC data. Current Interpretive Data was last revised on 2017. Blood 09/12/2024 11:0 9 PM CDT 09/13/2024 12:27 AM CDT us Christine Rossi MD LAB BLOOD ORDERABLES Final R esult [facility] Department [place] [address] * CBC with auto differential (09/12/2024 11:09 PM CDT) [facility] WBC 7.10 3.80 - 9.90 K/cumm Hgb 14.7 13.0 - 17.5 g/dL [facility] Hct 42.0 38.9 - 50.3 % [facility] Plt 166 150 - 400 K/cumm [facility] MPV 9.1 9.1 - 12.3 fL [facility] RBC 4.57 4.30 - 5.80 M/cumm [facility] MCV 91.9 81.3 - 96.4 fL [facility] MCH 32.2 27.1 - 33.3 pg [facility] MCHC 35.0 32.3 - 35.7 g/dL [facility] RDW CV 13.6 11.1 - 14.9 % [facility] RDW SD 46.3 35.7 - 48.1 fL [facility] NRBC abs 0.00 0.00 - 0.01 K/cumm [facility] Blood 09/12/2024 11:0 9 PM CDT 09/13/2024 12:27 AM CDT us Christine Rossi MD LAB BLOOD ORDERABLES Final R esult [facility] Department [place] [address] * (ABNORMAL) Comprehensive metabolic panel (09/12/2024 11:09 PM CDT) [facility] Sodium 142 135 - 145 mmol/L Potassium, pl 4.4 3.3 - 4.9 mmol/L [facility] Comment:Hemolyzed; Potassium value may be falsely elevated by as much as 0.3-0.5 mmol/L. Suggest redraw and reanalysis. Chloride 107 97 - 110 mmol/L [facility] CO2 27 22 - 32 mmol/L [facility] Anion gap 8 2 - 15 mmol/L [facility] BUN 13 6 - 25 mg/dL [facility] Creatinine 0.94 0.80 - 1.30 mg/dL [facility] Glucose 91 70 - 199 mg/dL [facility] Comment: Interpretive Data Fasting glucose [...] 2022. Calcium 9.2 8.5 - 10.3 mg/dL [facility] Bilirubin, total 0.9 0.1 - 1.2 mg/dL [facility] Protein, pl 6.2(L) 6.5 - 8.5 g/dL [facility] Albumin 3.9 3.5 - 5.0 g/dL [facility] Alk phos 51 40 - 130 Units/L [facility] ALT 48 7 - 55 Units/L [facility] AST 34 10 - 50 Units/L [facility] Comment:Hemolyzed; result ma y be falsely elevated Blood 09/12/2024 11:0 9 PM CDT 09/13/2024 12:25 AM CDT us Christine Rossi MD LAB BLOOD ORDERABLES Final R esult Performing Organization Address [facility] Co de Phone Number [facility] Department [place] [address] * POCT glucose (09/12/2024 7:27 AM CDT) [facility] Glucose, POC 100 70 - 199 mg/dL Blood 09/12/2024 7:2 7 AM CDT 09/12/2024 7:27 AM CDT us Christine Rossi MD LAB POCT ORDERABLES - DEVICE Final Result Performing Organization Address [facility] Co de Phone Number [facility] Department [place] [address] * POCT glucose (09/12/2024 12:18 AM CDT) Glucose, POC 108 70 - 199 mg/dL Blood 09/12/2024 12:1 8 AM CDT 09/12/2024 12:18 AM CDT us Christine Rossi MD LAB POCT ORDERABLES - DEVICE Final Result Performing Organization Address [facility] de Phone Number [facility] [place] [address] * eGFR (2024 10:15 PM CDT) [facility] eGFR 90 >=60 mL/min/1. 73 m2 Comment: [...] ORDERABLES Final R esult Performing Organization Address [facility] Co de Phone Number [facility] Department [place] [address] * Differential, auto (2024 10:15 PM CDT) Neutrophil abs 3.58 1.50 - 6.50 K/cumm Imm gran abs 0.02 0.00 - 0.10 K/cumm [facility] Lymphocyte abs 2.33 0.80 - 3.30 K/cumm [facility] Monocyte abs 0.46 0.20 - 0.80 K/cumm [facility] Eosinophil abs 0.03 0.00 - 0.50 K/cumm [facility] Basophil abs 0.06 0.00 - 0.10 K/cumm [facility] Neutrophil pct 55.2 % [facility] Comment: Interpretive Data Percent cell count reference ranges are not reported, since discordance with absolute values may lead to misinterpretation of CBC data. Current Interpretive Data was last revised on 2017. Imm gran pct 0.3 % [facility] Comment: Interpretive Data Percent cell count reference ranges are not reported, since discordance with absolute values may lead to misinterpretation of CBC data. Current Interpretive Data was last revised on 2017. Lymphocyte pct 36.0 % [facility] Comment: Interpretive Data Percent cell count reference ranges are not reported, since discordance with absolute values may lead to misinterpretation of CBC data. Current Interpretive Data was last revised on 2017. Monocyte pct 7.1 % [facility] Comment: Interpretive Data Percent cell count reference ranges are not reported, since discordance with absolute values may lead to misinterpretation of CBC data. Current Interpretive Data was last revised on 2017. Eosinophil pct 0.5 % [facility] Comment: Interpretive Data Percent cell count reference ranges are not reported, since discordance with absolute values may lead to misinterpretation of CBC data. Current Interpretive Data was last revised on 2017. Basophil pct 0.9 % [facility] Comment: Interpretive Data Percent cell count reference ranges are not reported, since discordance with absolute values may lead to misinterpretation of CBC data. Current Interpretive Data was last revised on 2017. Blood 2024 10:1 5 PM CDT 2024 11:41 PM CDT us Christine Rossi MD LAB BLOOD ORDERABLES Final R esult Performing Organization Address City/[facility]/ZIP Co de Phone Number [facility] Department [place] [address] * (ABNORMAL) CBC with auto differential (2024 10:15 PM CDT) WBC 6.48 3.80 - 9.90 K/cumm Hgb 13.6 13.0 - 17.5 g/dL [facility] Hct 39.5 38.9 - 50.3 % [facility] Plt 184 150 - 400 K/cumm [facility] MPV 9.4 9.1 - 12.3 fL [facility] RBC 4.29(L) 4.30 - 5.80 M/cumm [facility] MCV 92.1 81.3 - 96.4 fL [facility] MCH 31.7 27.1 - 33.3 pg [facility] MCHC 34.4 32.3 - 35.7 g/dL [facility] RDW CV 13.7 11.1 - 14.9 % [facility] RDW SD 46.2 35.7 - 48.1 fL [facility] NRBC abs 0.00 0.00 - 0.01 K/cumm [facility] Blood 2024 10:1 5 PM CDT 2024 11:41 PM CDT us Christine Rossi MD LAB BLOOD ORDERABLES Final R esult [facility] Department [place] [address] * (ABNORMAL) Comprehensive metabolic panel (2024 10:15 PM CDT) Sodium 146(H) 135 - 145 mmol/L Potassium, pl 3.9 3.3 - 4.9 mmol/L [facility] Chloride 108 97 - 110 mmol/L [facility] CO2 28 22 - 32 mmol/L [facility] Anion gap 10 2 - 15 mmol/L [facility] BUN 13 6 - 25 mg/dL [facility] Creatinine 0.96 0.80 - 1.30 mg/dL [facility] Glucose 58(L) 70 - 199 mg/dL [facility] Comment: Interpretive Data Fasting glucose [...] 2022. Calcium 9.3 8.5 - 10.3 mg/dL [facility] Bilirubin, total 0.7 0.1 - 1.2 mg/dL [facility] Protein, pl 6.0(L) 6.5 - 8.5 g/dL [facility] Albumin 3.7 3.5 - 5.0 g/dL [facility] Alk phos 49 40 - 130 Units/L [facility] ALT 55 7 - 55 Units/L [facility] AST 37 10 - 50 Units/L [facility] Blood 2024 10:1 5 PM CDT 2024 11:40 PM CDT us Christine Rossi MD LAB BLOOD ORDERABLES Final R esult [facility] Department [place] [address] * eGFR (09/10/2024 9:17 PM CDT) eGFR [...] MD LAB BLOOD ORDERABLES Final R esult [facility] Department [place] [address] * Differential, auto (09/10/2024 9:17 PM CDT) Pathologist [facility] Neutrophil abs 4.30 1.50 - 6.50 K/cumm Imm gran abs 0.03 0.00 - 0.10 K/cumm [facility] Lymphocyte abs 2.30 0.80 - 3.30 K/cumm [facility] Monocyte abs 0.46 0.20 - 0.80 K/cumm [facility] Eosinophil abs 0.04 0.00 - 0.50 K/cumm [facility] Basophil abs 0.08 0.00 - 0.10 K/cumm [facility] Neutrophil pct 59.6 % [facility] Comment: Interpretive Data Percent cell count reference ranges are not reported, since discordance with absolute values may lead to misinterpretation of CBC data. Current Interpretive Data was last revised on 2017. Imm gran pct 0.4 % [facility] Comment: Interpretive Data Percent cell count reference ranges are not reported, since discordance with absolute values may lead to misinterpretation of CBC data. Current Interpretive Data was last revised on 2017. Lymphocyte pct 31.9 % [facility] Comment: Interpretive Data Percent cell count reference ranges are not reported, since discordance with absolute values may lead to misinterpretation of CBC data. Current Interpretive Data was last revised on 2017. Monocyte pct 6.4 % [facility] Comment: Interpretive Data Percent cell count reference ranges are not reported, since discordance with absolute values may lead to misinterpretation of CBC data. Current Interpretive Data was last revised on 2017. Eosinophil pct 0.6 % [facility] Comment: Interpretive Data Percent cell count reference ranges are not reported, since discordance with absolute values may lead to misinterpretation of CBC data. Current Interpretive Data was last revised on 2017. Basophil pct 1.1 % [facility] Comment: Interpretive Data Percent cell count reference ranges are not reported, since discordance with absolute values may lead to misinterpretation of CBC data. Current Interpretive Data was last revised on 2017. Blood 09/10/2024 9:17 PM CDT 09/10/2024 9:49 PM CDT us Christine Rossi MD LAB BLOOD ORDERABLES Final R esult [facility] Department [place] [address] * (ABNORMAL) CBC with auto differential (09/10/2024 9:17 PM CDT) WBC 7.21 3.80 - 9.90 K/cumm Hgb 12.8(L) 13.0 - 17.5 g/dL [facility] Hct 35.5(L) 38.9 - 50.3 % [facility] Plt 158 150 - 400 K/cumm [facility] MPV 9.2 9.1 - 12.3 fL [facility] RBC 3.90(L) 4.30 - 5.80 M/cumm [facility] MCV 91.0 81.3 - 96.4 fL [facility] MCH 32.8 27.1 - 33.3 pg [facility] MCHC 36.1(H) 32.3 - 35.7 g/dL [facility] RDW CV 13.6 11.1 - 14.9 % [facility] RDW SD 45.1 35.7 - 48.1 fL [facility] NRBC abs 0.00 0.00 - 0.01 K/cumm [facility] Blood 09/10/2024 9:17 PM CDT 09/10/2024 9:49 PM CDT us Christine Rossi MD LAB BLOOD ORDERABLES Final R esult [facility] Department [place] [address] * (ABNORMAL) Comprehensive metabolic panel (09/10/2024 9:17 PM CDT) [facility] Sodium 139 135 - 145 mmol/L Potassium, pl 4.2 3.3 - 4.9 mmol/L [facility] Chloride 104 97 - 110 mmol/L [facility] CO2 26 22 - 32 mmol/L [facility] Anion gap 9 2 - 15 mmol/L [facility] BUN 13 6 - 25 mg/dL [facility] Creatinine 0.97 0.80 - 1.30 mg/dL [facility] Glucose 101 70 - 199 mg/dL [facility] Comment: Interpretive Data Fasting glucose [...] 2022. Calcium 8.9 8.5 - 10.3 mg/dL [facility] Bilirubin, total 0.6 0.1 - 1.2 mg/dL [facility] [facility] Protein, pl 6.1(L) 6.5 - 8.5 g/dL [facility] Albumin 3.7 3.5 - 5.0 g/dL [facility] Alk phos 48 40 - 130 Units/L [facility] ALT 46 7 - 55 Units/L [facility] AST 44 10 - 50 Units/L [facility] Blood 09/10/2024 9:17 PM CDT 09/10/2024 9:47 PM CDT us Christine Rossi MD LAB BLOOD ORDERABLES Final R esult [facility] Department [place] [address] * eGFR (09/09/2024 8:51 PM CDT) eGFR [...] MD LAB BLOOD ORDERABLES Final R esult [facility] Department [place] [address] * Differential, auto (09/09/2024 8:51 PM CDT) Neutrophil abs 4.72 1.50 - 6.50 K/cumm Imm gran abs 0.02 0.00 - 0.10 K/cumm [facility] Lymphocyte abs 2.31 0.80 - 3.30 K/cumm [facility] Monocyte abs 0.48 0.20 - 0.80 K/cumm [facility] Eosinophil abs 0.02 0.00 - 0.50 K/cumm [facility] Basophil abs 0.07 0.00 - 0.10 K/cumm [facility] Neutrophil pct 61.9 % [facility] Comment: Interpretive Data Percent cell count reference ranges are not reported, since discordance with absolute values may lead to misinterpretation of CBC data. Current Interpretive Data was last revised on 2017. Imm gran pct 0.3 % [facility] Comment: Interpretive Data Percent cell count reference ranges are not reported, since discordance with absolute values may lead to misinterpretation of CBC data. Current Interpretive Data was last revised on 2017. Lymphocyte pct 30.3 % [facility] Comment: Interpretive Data Percent cell count reference ranges are not reported, since discordance with absolute values may lead to misinterpretation of CBC data. Current Interpretive Data was last revised on 2017. Monocyte pct 6.3 % [facility] Comment: Interpretive Data Percent cell count reference ranges are not reported, since discordance with absolute values may lead to misinterpretation of CBC data. Current Interpretive Data was last revised on 2017. Eosinophil pct 0.3 % [facility] Comment: Interpretive Data Percent cell count reference ranges are not reported, since discordance with absolute values may lead to misinterpretation of CBC data. Current Interpretive Data was last revised on 2017. Basophil pct 0.9 % [facility] Comment: Interpretive Data Percent cell count reference ranges are not reported, since discordance with absolute values may lead to misinterpretation of CBC data. Current Interpretive Data was last revised on 2017. Blood 09/09/2024 8:51 PM CDT 09/09/2024 9:27 PM CDT us Christine Rossi MD LAB BLOOD ORDERABLES Final R esult Performing Organization Address City/[facility]/ZIP Co de Phone Number [facility] [place] [address] * (ABNORMAL) CBC with auto differential (09/09/2024 8:51 PM CDT) [facility] WBC 7.62 3.80 - 9.90 K/cumm Hgb 15.4 13.0 - 17.5 g/dL [facility] Hct 43.9 38.9 - 50.3 % [facility] Plt 201 150 - 400 K/cumm [facility] MPV 8.9(L) 9.1 - 12.3 fL [facility] RBC 4.75 4.30 - 5.80 M/cumm [facility] MCV 92.4 81.3 - 96.4 fL [facility] MCH 32.4 27.1 - 33.3 pg [facility] MCHC 35.1 32.3 - 35.7 g/dL [facility] RDW CV 13.6 11.1 - 14.9 % [facility] RDW SD 46.1 35.7 - 48.1 fL [facility] NRBC abs 0.00 0.00 - 0.01 K/cumm [facility] Blood 09/09/2024 8:51 PM CDT 09/09/2024 9:27 PM CDT us Christine Rossi MD LAB BLOOD ORDERABLES Final R esult [facility] [place] [address] * Comprehensive metabolic panel (09/09/2024 8:51 PM CDT) Sodium 141 135 - 145 mmol/L Potassium, pl 3.7 3.3 - 4.9 mmol/L [facility] Chloride 104 97 - 110 mmol/L [facility] CO2 25 22 - 32 mmol/L [facility] Anion gap 12 2 - 15 mmol/L [facility] BUN 10 6 - 25 mg/dL [facility] Creatinine 0.96 0.80 - 1.30 mg/dL [facility] Glucose 90 70 - 199 mg/dL [facility] Comment: Interpretive Data Fasting glucose [...] 2022. Calcium 9.5 8.5 - 10.3 mg/dL [facility] Bilirubin, total 1.2 0.1 - 1.2 mg/dL [facility] Protein, pl 7.4 6.5 - 8.5 g/dL [facility] Albumin 4.4 3.5 - 5.0 g/dL [facility] Alk phos 54 40 - 130 Units/L [facility] ALT 33 7 - 55 Units/L [facility] AST 36 10 - 50 Units/L [facility] Blood 09/09/2024 8:51 PM CDT 09/09/2024 9:27 PM CDT us Christine Rossi MD LAB BLOOD ORDERABLES Final R esult [facility] Department [place] [address] * XR Abdomen Ap 1 Vw (09/09/2024 [...] radiologic changes of obstruction. Electronically signed by: mAy Sol M.D. us Christine Rossi MD IMG [...] MD LAB BLOOD ORDERABLES Final R esult [facility] Department [place] [address] * Differential, auto (09/08/2024 9:37 PM CDT) Neutrophil abs 3.89 1.50 - 6.50 K/cumm Imm gran abs 0.02 0.00 - 0.10 K/cumm [facility] Lymphocyte abs 2.37 0.80 - 3.30 K/cumm [facility] Monocyte abs 0.37 0.20 - 0.80 K/cumm [facility] Eosinophil abs 0.02 0.00 - 0.50 K/cumm [facility] Basophil abs 0.05 0.00 - 0.10 K/cumm [facility] Neutrophil pct 57.9 % [facility] Comment: Interpretive Data Percent cell count reference ranges are not reported, since discordance with absolute values may lead to misinterpretation of CBC data. Current Interpretive Data was last revised on 2017. Imm gran pct 0.3 % [facility] Comment: Interpretive Data Percent cell count reference ranges are not reported, since discordance with absolute values may lead to misinterpretation of CBC data. Current Interpretive Data was last revised on 2017. Lymphocyte pct 35.3 % [facility] Comment: Interpretive Data Percent cell count reference ranges are not reported, since discordance with absolute values may lead to misinterpretation of CBC data. Current Interpretive Data was last revised on 2017. Monocyte pct 5.5 % [facility] Comment: Interpretive Data Percent cell count reference ranges are not reported, since discordance with absolute values may lead to misinterpretation of CBC data. Current Interpretive Data was last revised on 2017. Eosinophil pct 0.3 % [facility] Comment: Interpretive Data Percent cell count reference ranges are not reported, since discordance with absolute values may lead to misinterpretation of CBC data. Current Interpretive Data was last revised on 2017. Basophil pct 0.7 % [facility] Comment: Interpretive Data Percent cell count reference ranges are not reported, since discordance with absolute values may lead to misinterpretation of CBC data. Current Interpretive Data was last revised on 2017. Blood 09/08/2024 9:37 PM CDT 09/08/2024 10:42 PM CDT us Christine Rossi MD LAB BLOOD ORDERABLES Final R esult [facility] Department [place] [address] * (ABNORMAL) CBC with auto differential (09/08/2024 9:37 PM CDT) WBC 6.72 3.80 - 9.90 K/cumm Hgb 14.8 13.0 - 17.5 g/dL [facility] Hct 41.0 38.9 - 50.3 % [facility] Plt 175 150 - 400 K/cumm [facility] MPV 9.1 9.1 - 12.3 fL [facility] RBC 4.53 4.30 - 5.80 M/cumm [facility] MCV 90.5 81.3 - 96.4 fL [facility] MCH 32.7 27.1 - 33.3 pg [facility] MCHC 36.1(H) 32.3 - 35.7 g/dL [facility] RDW CV 13.2 11.1 - 14.9 % [facility] RDW SD 43.4 35.7 - 48.1 fL [facility] NRBC abs 0.00 0.00 - 0.01 K/cumm [facility] Blood 09/08/2024 9:37 PM CDT 09/08/2024 10:42 PM CDT us Christine Rossi MD LAB BLOOD ORDERABLES Final R esult [facility] Department [place] [address] * (ABNORMAL) Comprehensive metabolic panel (09/08/2024 9:37 PM CDT) Sodium 139 135 - 145 mmol/L Potassium, pl 4.0 3.3 - 4.9 mmol/L [facility] Chloride 104 97 - 110 mmol/L [facility] CO2 25 22 - 32 mmol/L [facility] Anion gap 10 2 - 15 mmol/L [facility] BUN 12 6 - 25 mg/dL [facility] Creatinine 0.97 0.80 - 1.30 mg/dL [facility] Glucose 88 70 - 199 mg/dL [facility] Comment: Interpretive Data Fasting glucose [...] 2022. Calcium 9.5 8.5 - 10.3 mg/dL [facility] Bilirubin, total 1.9(H) 0.1 - 1.2 mg/dL [facility] Protein, pl 6.8 6.5 - 8.5 g/dL [facility] Albumin 4.4 3.5 - 5.0 g/dL [facility] Alk phos 50 40 - 130 Units/L [facility] ALT 24 7 - 55 Units/L [facility] AST 22 10 - 50 Units/L [facility] Blood 09/08/2024 9:37 PM CDT 09/08/2024 10:41 PM CDT us Christine Rossi MD LAB BLOOD ORDERABLES Final R esult [facility] Department [place] [address] * TRANSTHORACIC ECHO (TTE) COMPLETE W DOPPLER/CF W CONTRAST (09/08/2024 10:20 AM CDT) EF Mod BP 66 % CONS SCIMAGE Anatomical Region Laterality Modality Ultrasound 09/08/2024 8:44 AM CDT Narrative 09/08/2024 11:28 AM CDT [facility] Card[place] [address] Transthoracic Echocardiographic Report ADDENDUM Patient Name: MIGUELITO LOPES : 1965 (58y 11m) Gender: M Study Date: 09/08/2024 08:44:44 AM Ht(Inch): 65 Wt(Lb): 121.03 BSA: 1.59 Diesel Service Apprentice: Javi Marte [facility] Location: [id number] Order Provider: FLOCHRISTINE Heart Rate: 83 BMI: 20.14 BP: 107 [...] Procedure Note Binu Urban MD - 09/08/2024 [facility] [place] [address] Transthoracic Echocardiographic Report ADDENDUM Patient Name: MIGUELITO LOPES : 1965 (58y 11m) Gender: M Study Date: 09/08/2024 08:44:44 AM Ht(Inch): 65 Wt(Lb): 121.03 BSA: 1.59 Diesel Service Apprentice: Javi Marte RDCS Location: [id number] Order Provider:CHRISTINE ROSSI Heart Rate: 83 BMI: [...] - 1.5 ] RWT 0.49 MV Decel Fjoq191.89 msec [ 104.00 - 258.00 ] EDV [...] cm [ 1.71 - 5.00 ] RA Etbstp884.51 ml RA Volume Iqxbj437.47 ml/m2 AoR Diam 2D 3.17 cm [ [...] ORDERABLES Final R esult Performing Organization Address City/[facility] Co de Phone Number [facility] Department [place] [address] * Magnesium (09/08/2024 5:08 AM CDT) Magnesium 2.4 1.4 - 2.5 mg/dL Blood 09/08/2024 5:08 AM CDT 09/08/2024 5:24 AM CDT us Christine Rossi MD LAB BLOOD ORDERABLES Final R esult [facility] Department [place] [address] * Basic metabolic panel (09/08/2024 5:08 AM CDT) Pathologist [facility] Sodium 140 135 - 145 mmol/L Potassium, pl 3.8 3.3 - 4.9 mmol/L [facility] Chloride 104 97 - 110 mmol/L [facility] CO2 24 22 - 32 mmol/L [facility] Anion gap 12 2 - 15 mmol/L [facility] BUN 12 6 - 25 mg/dL [facility] Creatinine 0.90 0.80 - 1.30 mg/dL [facility] Glucose 103 70 - 199 mg/dL [facility] Comment: Interpretive Data Fasting glucose [...] 2022. Calcium 9.3 8.5 - 10.3 mg/dL [facility] Blood 09/08/2024 5:08 AM CDT 09/08/2024 5:24 AM CDT us Christine Rossi MD LAB BLOOD ORDERABLES Final R esult [facility] Department [place] [address] * Troponin I high-sensitivity 6-hour (09/07/2024 10:41 PM CDT) [facility] Trop I hs 6 <=35 ng/L Comment: Interpretive Data For further hscTnI resources including the diagnostic algorithm and an aid in interpretation, copy and paste this link: [email or web address].[email or web address]/show/[email or web address] Current Interpretive Data last revised 2019. Trop I hs delta See Comment ng/L [facility] Comment:Inappropriate collec tion time to report a delta. Trop I hs pct delta See Comment % [facility] Comment:Inappropriate collec tion time to report a delta. Trop I hs interp See Comment [facility] Comment:Inappropriate collec tion time to report a delta. Blood 09/07/2024 10:4 1 PM CDT 09/07/2024 10:56 PM CDT us Melissa Portillo MD LAB BLOOD ORDERABLES F inal Result [facility] Department [place] [address] * eGFR (09/07/2024 10:41 PM CDT) eGFR [...] MD LAB BLOOD ORDERABLES Final R esult [facility] Department [place] [address] * Differential, auto (09/07/2024 10:41 PM CDT) Neutrophil abs 4.41 1.50 - 6.50 K/cumm Imm gran abs 0.02 0.00 - 0.10 K/cumm [facility] Lymphocyte abs 2.24 0.80 - 3.30 K/cumm [facility] Monocyte abs 0.44 0.20 - 0.80 K/cumm [facility] Eosinophil abs 0.01 0.00 - 0.50 K/cumm [facility] Basophil abs 0.06 0.00 - 0.10 K/cumm [facility] Neutrophil pct 61.5 % [facility] Comment: Interpretive Data Percent cell count reference ranges are not reported, since discordance with absolute values may lead to misinterpretation of CBC data. Current Interpretive Data was last revised on 2017. Imm gran pct 0.3 % [facility] Comment: Interpretive Data Percent cell count reference ranges are not reported, since discordance with absolute values may lead to misinterpretation of CBC data. Current Interpretive Data was last revised on 2017. Lymphocyte pct 31.2 % [facility] Comment: Interpretive Data Percent cell count reference ranges are not reported, since discordance with absolute values may lead to misinterpretation of CBC data. Current Interpretive Data was last revised on 2017. Monocyte pct 6.1 % [facility] Comment: Interpretive Data Percent cell count reference ranges are not reported, since discordance with absolute values may lead to misinterpretation of CBC data. Current Interpretive Data was last revised on 2017. Eosinophil pct 0.1 % [facility] Comment: Interpretive Data Percent cell count reference ranges are not reported, since discordance with absolute values may lead to misinterpretation of CBC data. Current Interpretive Data was last revised on 2017. Basophil pct 0.8 % [facility] Comment: Interpretive Data Percent cell count reference ranges are not reported, since discordance with absolute values may lead to misinterpretation of CBC data. Current Interpretive Data was last revised on 2017. Blood 09/07/2024 10:4 1 PM CDT 09/07/2024 10:56 PM CDT us Christine Rossi MD LAB BLOOD ORDERABLES Final R esult [facility] [place] [address] * CBC with auto differential (09/07/2024 10:41 PM CDT) Pathologist [facility] WBC 7.18 3.80 - 9.90 K/cumm Hgb 13.9 13.0 - 17.5 g/dL [facility] Hct 39.4 38.9 - 50.3 % [facility] Plt 175 150 - 400 K/cumm [facility] MPV 9.4 9.1 - 12.3 fL [facility] RBC 4.36 4.30 - 5.80 M/cumm [facility] MCV 90.4 81.3 - 96.4 fL [facility] MCH 31.9 27.1 - 33.3 pg [facility] MCHC 35.3 32.3 - 35.7 g/dL [facility] RDW CV 13.2 11.1 - 14.9 % [facility] RDW SD 43.5 35.7 - 48.1 fL [facility] NRBC abs 0.00 0.00 - 0.01 K/cumm [facility] Blood 09/07/2024 10:4 1 PM CDT 09/07/2024 10:56 PM CDT us Christine Rossi MD LAB BLOOD ORDERABLES Final R esult [facility] [place] [address] * (ABNORMAL) Comprehensive metabolic panel (09/07/2024 10:41 PM CDT) Sodium 141 135 - 145 mmol/L Potassium, pl 4.3 3.3 - 4.9 mmol/L [facility] Comment:Hemolyzed; Potassium value may be falsely elevated by as much as 0.3-0.5 mmol/L. Suggest redraw and reanalysis. Chloride 106 97 - 110 mmol/L [facility] CO2 25 22 - 32 mmol/L [facility] Anion gap 10 2 - 15 mmol/L [facility] BUN 13 6 - 25 mg/dL [facility] Creatinine 0.93 0.80 - 1.30 mg/dL [facility] Glucose 97 70 - 199 mg/dL [facility] Comment: Interpretive Data Fasting glucose [...] 2022. Calcium 9.2 8.5 - 10.3 mg/dL [facility] Bilirubin, total 1.7(H) 0.1 - 1.2 mg/dL [facility] Protein, pl 6.7 6.5 - 8.5 g/dL [facility] Albumin 4.0 3.5 - 5.0 g/dL [facility] Alk phos 49 40 - 130 Units/L [facility] ALT 27 7 - 55 Units/L [facility] AST 33 10 - 50 Units/L [facility] Comment:Hemolyzed; result ma y be falsely elevated Blood 09/07/2024 10:4 1 PM CDT 09/07/2024 10:55 PM CDT us Christine Rossi MD LAB BLOOD ORDERABLES Final R esult [facility] Department [place] [address] * Troponin I high-sensitivity 4-hour (09/07/2024 8:09 PM CDT) Trop I hs 6 <=35 ng/L Comment: Interpretive Data For further hscTnI resources including the diagnostic algorithm and an aid in interpretation, copy and paste this link: [email or web address]/show/[email or web address] Current Interpretive Data last revised 2019. Trop I hs delta 0 ng/L [facility] Trop I hs interp Insignificant [facility] Blood 09/07/2024 8:09 PM CDT 09/07/2024 8:27 PM CDT Result [facility] Melissa Portillo MD LAB BLOOD ORDERABLES F inal Result Performing Organization Address [facility] [place] [address] * Troponin I high-sensitivity 2-hour (09/07/2024 5:58 PM CDT) Pathologist [facility] Trop I hs 5 <=35 ng/L Comment: Interpretive Data For further hscTnI resources including the diagnostic algorithm and an aid in interpretation, copy and paste this link: [email or web address]/show/[email or web address] Current Interpretive Data last revised 2019. Trop I hs delta -1 ng/L [facility] Trop I hs interp Insignificant [facility] Blood 09/07/2024 5:58 PM CDT 09/07/2024 6:08 PM CDT Melissa Portillo MD LAB BLOOD ORDERABLES F inal Result Performing Organization Address [facility] Co de Phone Number [facility] [place] [address] * Troponin I high-sensitivity series (baseline, 2hr, 4hr, 6hr) (09/07/2024 3:37 PM CDT) [facility] Trop I hs 6 <=35 ng/L Comment: Interpretive Data For further hscTnI resources including the diagnostic algorithm and an aid in interpretation, copy and paste this link: [email or web address].testcatalog.org/show/[email or web address] Current Interpretive Data last revised 2019. Blood 09/07/2024 3:37 PM CDT 09/07/2024 3:51 PM CDT us Melissa Portillo MD LAB BLOOD ORDERABLES F inal Result Performing Organization Address City/[facility]/ZIP Co de Phone Number [facility] Department [place] [address] * ECG 12 lead (09/07/2024 2:16 PM CDT) [facility] Ventricular Rate EKG/Min 108 BPM [facility] Atrial Rate 141 BPM [facility] QRS-Interval (MSEC) 116 ms [facility] QT-Interval (MSEC) 354 ms [facility] QTc 474 ms [facility] R Douglas 269 degrees [facility] T Douglas 53 degrees [facility] Diagnosis Atrial fibrillation with rapid ventricular response [...] has shortened Confirmed by LARRY LAGOS M.D ([id number]) on 09/09/2024 3:25:45 PM [facility] 09/07/2024 2:16 PM CDT 09/09/2024 3:25 PM CDT us Conner Stovall MD ECG ORDERABLES Final Result Performing Organization Address City/[facility]/ZIP Co de Phone Number [facility] * eGFR (09/06/2024 9:47 PM CDT) [facility] eGFR >90 >=60 mL/min/1. 73 m2 Comment: [...] MD LAB BLOOD ORDERABLES Final R esult [facility] Department [place] [address] * Differential, auto (09/06/2024 9:47 PM CDT) [facility] Neutrophil abs 4.88 1.50 - 6.50 K/cumm Imm gran abs 0.03 0.00 - 0.10 K/cumm [facility] Lymphocyte abs 2.82 0.80 - 3.30 K/cumm [facility] Monocyte abs 0.79 0.20 - 0.80 K/cumm [facility] Eosinophil abs 0.03 0.00 - 0.50 K/cumm [facility] Basophil abs 0.05 0.00 - 0.10 K/cumm [facility] Neutrophil pct 56.8 % [facility] Comment: Interpretive Data Percent cell count reference ranges are not reported, since discordance with absolute values may lead to misinterpretation of CBC data. Current Interpretive Data was last revised on 2017. Imm gran pct 0.3 % [facility] Comment: Interpretive Data Percent cell count reference ranges are not reported, since discordance with absolute values may lead to misinterpretation of CBC data. Current Interpretive Data was last revised on 2017. Lymphocyte pct 32.8 % [facility] Comment: Interpretive Data Percent cell count reference ranges are not reported, since discordance with absolute values may lead to misinterpretation of CBC data. Current Interpretive Data was last revised on 2017. Monocyte pct 9.2 % [facility] Comment: Interpretive Data Percent cell count reference ranges are not reported, since discordance with absolute values may lead to misinterpretation of CBC data. Current Interpretive Data was last revised on 2017. Eosinophil pct 0.3 % [facility] Comment: Interpretive Data Percent cell count reference ranges are not reported, since discordance with absolute values may lead to misinterpretation of CBC data. Current Interpretive Data was last revised on 2017. Basophil pct 0.6 % [facility] Comment: Interpretive Data Percent cell count reference ranges are not reported, since discordance with absolute values may lead to misinterpretation of CBC data. Current Interpretive Data was last revised on 2017. Blood 09/06/2024 9:47 PM CDT 09/06/2024 10:13 PM CDT us Christine Rossi MD LAB BLOOD ORDERABLES Final R esult [facility] Department [place] [address] * Thyroid Function [place] (09/06/2024 9:47 PM CDT) TSH 2.14 0.30 - 4.20 mcIUnit/mL Blood 09/06/2024 9:47 PM CDT 09/06/2024 10:13 PM CDT us Christine Rossi MD LAB BLOOD ORDERABLES Final R esult Performing Organization Address [facility] Co de Phone Number [facility] Department [place] [address] * (ABNORMAL) CBC with auto differential (09/06/2024 9:47 PM CDT) [facility] WBC 8.60 3.80 - 9.90 K/cumm Hgb 15.1 13.0 - 17.5 g/dL [facility] Hct 42.1 38.9 - 50.3 % [facility] Plt 181 150 - 400 K/cumm [facility] MPV 9.0(L) 9.1 - 12.3 fL [facility] RBC 4.69 4.30 - 5.80 M/cumm [facility] MCV 89.8 81.3 - 96.4 fL [facility] MCH 32.2 27.1 - 33.3 pg [facility] MCHC 35.9(H) 32.3 - 35.7 g/dL [facility] [facility] RDW CV 13.2 11.1 - 14.9 % [facility] RDW SD 43.3 35.7 - 48.1 fL [facility] NRBC abs 0.00 0.00 - 0.01 K/cumm [facility] Blood 09/06/2024 9:47 PM CDT 09/06/2024 10:13 PM CDT us Christine Rossi MD LAB BLOOD ORDERABLES Final R esult Performing Organization Address City/[facility] Co de Phone Number [facility] Department [place] [address] * (ABNORMAL) Protime-INR (09/06/2024 9:47 PM CDT) [facility] PT 13.7(H) 9.7 - 13.0 sec INR 1.26(H) 0.90 - 1.20 [facility] Comment: Interpretive data Oral anticoagulant therapeutic ranges: Venous thromboembolism prophylaxis or treatment: 2.0-3.0 CARDIOLOGY Standard range: 2.0-3.0 High-intensity range: 2.5-3.5 Refer to indication-specific guidelines for appropriate target ranges for prosthetic heart valve replacement. Current interpretive data was last revised on 2019. Blood 09/06/2024 9:47 PM CDT 09/06/2024 10:29 PM CDT us Christine Rossi MD LAB BLOOD ORDERABLES Final R esult [facility] Department [place] [address] * (ABNORMAL) Comprehensive metabolic panel (09/06/2024 9:47 PM CDT) Sodium 141 135 - 145 mmol/L Potassium, pl 4.3 3.3 - 4.9 mmol/L [facility] Chloride 104 97 - 110 mmol/L [facility] CO2 25 22 - 32 mmol/L [facility] Anion gap 12 2 - 15 mmol/L [facility] BUN 17 6 - 25 mg/dL [facility] Creatinine 0.93 0.80 - 1.30 mg/dL [facility] Glucose 72 70 - 199 mg/dL [facility] Comment: Interpretive Data Fasting glucose [...] 2022. Calcium 9.5 8.5 - 10.3 mg/dL [facility] Bilirubin, total 2.4(H) 0.1 - 1.2 mg/dL [facility] Protein, pl 6.8 6.5 - 8.5 g/dL [facility] Albumin 4.3 3.5 - 5.0 g/dL [facility] Alk phos 52 40 - 130 Units/L [facility] ALT 27 7 - 55 Units/L [facility] AST 27 10 - 50 Units/L [facility] Blood 09/06/2024 9:47 PM CDT 09/06/2024 10:13 PM CDT us Christine Rossi MD LAB BLOOD ORDERABLES Final R esult Performing Organization Address City/[facility]/ZIP Co de Phone Number [facility] Department [place] [address] * ECG 12 lead (09/06/2024 3:24 PM CDT) Ventricular Rate EKG/Min 96 BPM [facility] Atrial Rate 83 BPM [facility] MS-Interval (MSEC) 94 ms [facility] QRS-Interval (MSEC) 110 ms [facility] QT-Interval (MSEC) 424 ms [facility] QTc 535 ms [facility] P Douglas 44 degrees [facility] R Douglas -88 degrees [facility] T Douglas -13 degrees [facility] Diagnosis Sinus rhythm with short MS with frequent , and consecutive Premature ventricular complexes with junctional escape complexes Left axis deviation Low voltage QRS Incomplete right bundle branch block Prolonged QT Abnormal ECG No previous ECGs available Confirmed by Carlos SORTO [facility] ([id number]) on 2024 2:46:49 PM [facility] 09/06/2024 3:24 PM CDT 2024 2:46 PM CDT us Conner Stovall MD ECG ORDERABLES Final Result Performing Organization Address City/[facility]/ZIP Co de Phone Number [facility] * Lactate (09/06/2024 2:26 PM CDT) Pathologist [facility] Lactate 2.0 0.7 - 2.0 mmol/L Blood 09/06/2024 2:26 PM CDT 09/06/2024 2:36 PM CDT us Christine Rossi MD LAB BLOOD ORDERABLES Final R esult [facility] Department [place] [address] * Respiratory pathogen panel Nasopharyngeal (09/06/2024 9:37 AM CDT) Pathologist [facility] Influenza A RNA Not Detected Not Detected Influenza B RNA Not Detected Not Detected [facility] RSV RNA Not Detected Not Detected [facility] COVID-19 RNA Not Detected Not Detected [facility] Coronavirus 229E RNA Not Detected Not Detected [facility] Coronavirus HKU1 RNA Not Detected Not Detected [facility] Coronavirus NL63 RNA Not Detected Not Detected [facility] Coronavirus OC43 RNA Not Detected Not Detected [facility] Adenovirus DNA Not Detected Not Detected [facility] Metapneumovirus RNA Not Detected Not Detected [facility] Rhinovirus/Enterov irus RNA Not Detected Not Detected [facility] Parainfluenza 1 RNA Not Detected Not Detected [facility] Parainfluenza 2 RNA Not Detected Not Detected [facility] Parainfluenza 3 RNA Not Detected Not Detected [facility] Parainfluenza 4 RNA Not Detected Not Detected [facility] B. pertussis DNA Not Detected Not Detected [facility] B. parapertussis DNA Not Detected Not Detected [facility] C. pneumoniae DNA Not Detected Not Detected [facility] M. pneumoniae DNA Not Detected Not Detected [facility] Nasopharyngeal 09/06/2024 9: 37 AM CDT 09/06/2024 9:43 AM CDT Narrative [facility] - 09/06/2024 10:36 AM CDT Is the Patient experiencing symptoms consistent with COVID?->No Surveillance testing for transplant patient?->No Interpretive Data The [employer] FilmArray Respiratory Panel (RP2.1) assay is a [...] assay has FDA clearance for testing of METER REPAIRER HELPER swabs. The performance of additional specimen types has been assessed by the performing laboratory. The performance characteristics of this assay have been determined by [facility]. Current interpretive data was last revised on 22. us Mikki Guzman MD LAB MICROBIOLOGY - GENERA L ORDERABLES Final Result [facility] Department [place] [address] * (ABNORMAL) Urinalysis reflex to microscopic and culture Urine (09/06/2024 7:03 AM CDT) Color, ur Straw Yellow Clarity, ur Clear Clear [facility] Specific gravity, ur >1.042(H) 1.003 - 1.030 [facility] pH, urine 6.0 [facility] Comment: Interpretive Data U rine pH is affected by diet, medications, systemic acid-base disturbances, and renal tubular function. pH may affect urinary stone formation. For example, urine pH below 6.0 may help reduce the tendency for calcium phosphate stones and pH greater than 6.0 may reduce the tendency for uric acid stone formation. Source: [facility] [employer] Current Interpretive Data was last revised on 2017 Protein, ur ql Trace Negative [facility] Glucose, ur ql Negative Negative [facility] Ketones, ur 1+(A) Negative [facility] Bilirubin, ur Negative Negative [facility] Blood, ur Negative Negative [facility] Urobilinogen, ur <2.0 <2.0 mg/dL [facility] Nitrite, ur Negative Negative [facility] Leukocyte esterase, ur Negative Negative [facility] UA reflex comment Reflex conditions for microscopic UA and culture not met. [facility] Urine 09/06/2024 7:03 AM CDT 09/06/2024 7:21 AM CDT Ravi Weaver MD LAB MICROBIOLOGY - [facility] ORDERABLES Final Result [facility] Department [place] [address] * CT Abdomen Pelvis W Contrast (09/06/2024 [...] 2019. Trop I hs delta -1 ng/L [facility] Trop I hs interp Insignificant [facility] Blood 09/06/2024 12:5 4 AM CDT 09/06/2024 1:14 AM CDT Ravi Weaver MD LAB BLOOD ORDERABLES Final Result [facility] Department [place] [address] * (ABNORMAL) ECG 12-LEAD (09/06/2024 12:11 AM [...] follow up: further workup in the ED Ravi Weaver MD ECG ORDERABLES Final Result [facility] * CT Chest PE (CTA) W Contrast [...] Ashley MD us Ravi Weaver MD IMG XR PROCEDURES Fin al Result * (ABNORMAL) POC Blood Gas and Chemistries, Venous - (09/05/2024 10:53 PM CDT) pH, Mike POC 7.35 7.32 - 7.43 pCO2, mike POC 48 40 - 50 mmHg [facility] pO2, mike POC <20(C) mmHg [facility] Na, POC 139 135 - 145 mmol/L [facility] K POC 4.0 3.3 - 4.9 mmol/L [facility] Comment: Interpretive Data Not all point of care methods assess for hemolysis. Confirm with instrument and retest K+ if not consistent with clinical signs and symptoms. Current Interpretive Data was last revised on 2023. Cl, POC 106 97 - 110 mmol/L [facility] Ionized Ca, POC 4.86 4.50 - 5.10 mg/dL [facility] Glucose, POC 106 70 - 199 mg/dL [facility] Lactate POC 2.4(H) 0.7 - 2.0 mmol/L [facility] MetHb, Mike POC 0.3 0.0 - 1.9 % [facility] O2 Sat, Mike POC (Ra) 22 % [facility] Base excess, POC 0.1 mmol/L [facility] Hct, POC 50.0 41.4 - 51.6 % [facility] Total Hb, POC 16.8 13.8 - 17.2 g/dL [facility] Blood 09/05/2024 10:5 3 PM CDT 09/05/2024 10:53 PM CDT us Lisa Ibarra MD LAB POCT ORDERABLES - DEVICE Final Result [facility] [place] [address] * Troponin I high-sensitivity series (baseline, 2hr, 4hr, 6hr) (09/05/2024 10:51 PM CDT) [facility] Trop I hs 12 <=35 ng/L Comment: Interpretive Data For further hscTnI resources including the diagnostic algorithm and an aid in interpretation, copy and paste this link: [email or web address].[email or web address].org/show/[email or web address] Current Interpretive Data last revised 2019. Blood 09/05/2024 10:5 1 PM CDT 09/05/2024 11:05 PM CDT Ravi Weaver MD LAB BLOOD ORDERABLES Final Result Performing Organization Address [facility] de Phone Number [facility] Department [place] [address] * (ABNORMAL) Lactate (09/05/2024 10:51 PM CDT) [facility] Lactate 2.4(H) 0.7 - 2.0 mmol/L Blood 09/05/2024 10:5 1 PM CDT 09/05/2024 11:06 PM CDT Ravi Weaver MD LAB BLOOD ORDERABLES Final Result Performing Organization Address [facility] Co de Phone Number [facility] [place] [address] * eGFR (09/05/2024 10:51 PM CDT) [facility] eGFR 70 >=60 mL/min/1. 73 m2 Comment: [...] Weaver MD LAB BLOOD ORDERABLES Final Result [facility] Department [place] [address] * Differential, auto (09/05/2024 10:51 PM CDT) Pathologist [facility] Neutrophil abs 5.58 1.50 - 6.50 K/cumm Imm gran abs 0.02 0.00 - 0.10 K/cumm [facility] Lymphocyte abs 1.96 0.80 - 3.30 K/cumm [facility] Monocyte abs 0.53 0.20 - 0.80 K/cumm [facility] Eosinophil abs 0.01 0.00 - 0.50 K/cumm [facility] Basophil abs 0.04 0.00 - 0.10 K/cumm [facility] Neutrophil pct 68.6 % [facility] Comment: Interpretive Data Percent cell count reference ranges are not reported, since discordance with absolute values may lead to misinterpretation of CBC data. Current Interpretive Data was last revised on 2017. Imm gran pct 0.2 % [facility] Comment: Interpretive Data Percent cell count reference ranges are not reported, since discordance with absolute values may lead to misinterpretation of CBC data. Current Interpretive Data was last revised on 2017. Lymphocyte pct 24.1 % [facility] Comment: Interpretive Data Percent cell count reference ranges are not reported, since discordance with absolute values may lead to misinterpretation of CBC data. Current Interpretive Data was last revised on 2017. Monocyte pct 6.5 % [facility] Comment: Interpretive Data Percent cell count reference ranges are not reported, since discordance with absolute values may lead to misinterpretation of CBC data. Current Interpretive Data was last revised on 2017. Eosinophil pct 0.1 % [facility] Comment: Interpretive Data Percent cell count reference ranges are not reported, since discordance with absolute values may lead to misinterpretation of CBC data. Current Interpretive Data was last revised on 2017. Basophil pct 0.5 % [facility] Comment: Interpretive Data Percent cell count reference ranges are not reported, since discordance with absolute values may lead to misinterpretation of CBC data. Current Interpretive Data was last revised on 2017. Blood 09/05/2024 10:5 1 PM CDT 09/05/2024 11:05 PM CDT us Ravi Weaver MD LAB BLOOD ORDERABLES Final Result [facility] Department [place] [address] * (ABNORMAL) Pro B-type natriuretic peptide (09/05/2024 [...] Heart J. 2006:27:330-337. 2. Thong RW, Satish AM. J. AM Beverley Cardiol: Cardiovasc Imag. 2009;2: 216- 225. Interpretive Data Last Revised Date: 2017. Blood 09/05/2024 10:5 1 PM CDT 09/05/2024 11:05 PM CDT Ravi Weaver MD LAB BLOOD ORDERABLES Final Result [facility] Department [place] [address] * (ABNORMAL) CBC with auto differential (09/05/2024 10:51 PM CDT) WBC 8.14 3.80 - 9.90 K/cumm Hgb 16.7 13.0 - 17.5 g/dL [facility] Hct 47.2 38.9 - 50.3 % [facility] Plt 201 150 - 400 K/cumm [facility] MPV 8.9(L) 9.1 - 12.3 fL [facility] RBC 5.20 4.30 - 5.80 M/cumm [facility] MCV 90.8 81.3 - 96.4 fL [facility] MCH 32.1 27.1 - 33.3 pg [facility] MCHC 35.4 32.3 - 35.7 g/dL [facility] RDW CV 13.2 11.1 - 14.9 % [facility] RDW SD 43.7 35.7 - 48.1 fL [facility] NRBC abs 0.00 0.00 - 0.01 K/cumm [facility] Blood 09/05/2024 10:5 1 PM CDT 09/05/2024 11:05 PM CDT Ravi Weaver MD LAB BLOOD ORDERABLES Final Result Performing Organization Address City/[facility]/ZIP Co de Phone Number [facility] [place] [address] * D-dimer, quantitative (09/05/2024 10:51 PM CDT) [...] 68, VTE cut-off 680 ng/ml FEU. References; Schouten HT et al. Brit Med J. 2013;346:f2492. Beverly et al. Annals Int Med. 2015;163:701-11. Current interpretive data was last revised on 2019. Blood 09/05/2024 10:5 1 PM CDT 09/05/2024 11:49 PM CDT Ravi Weaver MD LAB BLOOD ORDERABLES Final Result Performing Organization Address City/[facility]/ZIP Co de Phone Number [facility] [place] [address] * Magnesium (09/05/2024 10:51 PM CDT) Magnesium 2.2 1.4 - 2.5 mg/dL Blood 09/05/2024 10:5 1 PM CDT 09/05/2024 11:05 PM CDT us Lisa Ibarra MD LAB BLOOD ORDERABLES Final R esult Performing Organization Address [facility] de Phone Number [facility] Department [place] [address] * Lipase (09/05/2024 10:51 PM CDT) Lipase 52 10 - 99 Units/L Blood 09/05/2024 10:5 1 PM CDT 09/05/2024 11:05 PM CDT us Ravi Weaver MD LAB BLOOD ORDERABLES Final Result Performing Organization Address [facility] de Phone Number [facility] Department [place] [address] * Creatine kinase (CK), total (09/05/2024 10:51 PM CDT) CK 118 40 - 300 Units/L Blood 09/05/2024 10:5 1 PM CDT 09/05/2024 11:05 PM CDT us Lisa Ibarra MD LAB BLOOD ORDERABLES Final R esult Performing Organization Address [facility] de Phone Number [facility] Department [place] [address] * (ABNORMAL) Bilirubin, direct (09/05/2024 10:51 PM CDT) Bilirubin, direct 0.5(H) 0.1 - 0.3 mg/dL Blood 09/05/2024 10:5 1 PM CDT 09/05/2024 11:05 PM CDT us Christine Rossi MD LAB BLOOD ORDERABLES Final R esult [facility] Department [place] [address] * (ABNORMAL) Comprehensive metabolic panel (09/05/2024 10:51 PM CDT) Sodium 141 135 - 145 mmol/L Potassium, pl 4.3 3.3 - 4.9 mmol/L [facility] Chloride 103 97 - 110 mmol/L [facility] CO2 25 22 - 32 mmol/L [facility] Anion gap 13 2 - 15 mmol/L [facility] BUN 27(H) 6 - 25 mg/dL [facility] Creatinine 1.19 0.80 - 1.30 mg/dL [facility] Glucose 99 70 - 199 mg/dL [facility] Comment: Interpretive Data Fasting glucose [...] 2022. Calcium 9.9 8.5 - 10.3 mg/dL [facility] Bilirubin, total 2.9(H) 0.1 - 1.2 mg/dL [facility] Protein, pl 7.6 6.5 - 8.5 g/dL [facility] Albumin 4.7 3.5 - 5.0 g/dL [facility] Alk phos 56 40 - 130 Units/L [facility] ALT 29 7 - 55 Units/L [facility] AST 32 10 - 50 Units/L [facility] Blood 09/05/2024 10:5 1 PM CDT 09/05/2024 11:05 PM CDT us Ravi Weaver MD LAB BLOOD ORDERABLES Final Result [facility] Department [place] [address] * (ABNORMAL) ECG 12-LEAD (09/05/2024 10:34 PM CDT) Narrative [facility] - 09/05/2024 10:34 PM CDT Haydee Piedra [...] workup in the ED Haydee Piedra MD 09/05/24 2236 us Lisa Ibarra MD ECG ORDERABLES Final Result [facility] * Hepatitis panel, acute Blood (06/29/2024 11:13 AM CDT) Hep A IgM Nonreactive Nonreactive Hep B core IgM Nonreactive Nonreactive [facility] Hep C Ab Nonreactive Nonreactive [facility] Comment:Antibodies to HCV no t detected. Does NOT exclude the possibility of recent exposure to HCV. Current interpretive data was last revised on 21 HepBsAg Nonreactive Nonreactive [facility] Blood 06/29/2024 11:1 3 AM CDT 06/29/2024 12:25 PM CDT us Samantha Obrien MD LAB MICROBIOLOGY - GENERAL ORDERABLES Final Result Performing Organization Address City/State/[facility] Co de Phone Number [facility] Department of Laboratories [place], [place] [id number] from Last 3 Months or Most Recently Relevant to Health Maintenance Insurance [facility] MEDICARE ADVANTAGE MEDICARE IDPA MANAGED MEDICARE GENERIC RISK OTHER [facility] MEDICARE ADVANTAGE [facility] MEDICARE ADVANTAGE Advance Directives For more information, please contact: [phone] * Full Code (Latest Code Status on File) Date Activated Date Inactivated Comments 09/06/2024 11:11 AM 09/17/2024 6:58 PM * Full Code Date Activated Date Inactivated Comments 06/28/2024 9:57 PM 06/30/2024 7:14 PM Care Teams Process Assistant Relationship Specialty Start Date End Date Louis Hewitt MD PCP - General Family Medicine 01/12/20
[2024-10-02 10:27] LABS: Hematocrit 41.1 % (42.0-52.0); Hemoglobin 14.1 g/dL (14.0-18.0); Immature Granulocyte Percent A 0.2 % (0-0.5); Lymphocytes Absolute Auto 1.33 K/mm3 (0.9-3.2); Mean Corpuscular HGB Conc 34.3 g/dl (32-36); Mean Corpuscular Hemoglobin 32.1 pg (26-34); Mean Corpuscular Volume 93.6 fl (80-100); Nucleated Red Blood Cells Absolute Auto 0.000 K/mm3 (0.0-0.012); Nucleated Red Blood Cells Perc 0.0 % (0.0-0.2); Platelet Count Result 201 k/mm3 (150-375); Red Blood Count 4.39 M/mm3 (4.6-6.20); White Blood Count 4.5 K/mm3 (4.5-10.0)
[2024-10-02 10:38] LABS: Alanine Aminotransferase 32 U/L (6-50); Albumin Level 3.9 g/dL (3.5-5.1); Alkaline Phosphatase 51 U/L (38-126); Anion Gap 7 mmol/L (4-12); Aspartate Amino Transferase 33 U/L (17-59); Bilirubin,Total 1.7 mg/dL (0.2-1.3); Blood Urea Nitrogen 28 mg/dL (9-20); Calcium 9.4 mg/dL (8.4-10.2); Carbon Dioxide 24 mmol/L (22-30); Chloride 107 mmol/L (98-107); Estimated CRCL calculation 58 ml/min; Estimated Glomerular Filt Rate > 60; Glucose 93 mg/dL (65-110); Lipase 68 U/L (23-300); Potassium 3.9 mmol/L (3.4-5.0); Sodium 138 mmol/L (137-145); Total Protein 6.5 g/dL (6.3-8.2)
--- NOTE | 2024-10-02 11:15 | PC.NURSE ---
Pt reinforced need for urine Pt declined straight cath
--- NOTE | 2024-10-02 11:20 | ED_ITS ---
HPI - Abdominal Pain General Chief Complaint: Abdominal Pain Stated Complaint: abd pain/dehydrated History of Present Illness HPI narrative: 59 y/o M with a hx of anxiety, afib on Eliquis, non alcoholic cirrhosis, CHF presents to the ED for abdominal pain and concerns for dehydration. Pt states he is concerned he is constipated. Last BM was 3 days ago but states he had not had a bowel movement for a while prior to that. He denies melena or hematochezia. He states he has not been eating or drinking much because he feels ?full?. He reports pain to the left side of abdomen. He denies fever, chest pain or shortness of breath. He is also reporting a productive cough over the past few days. He has a history of COPD. Prior abdominal surgeries include appendectomy and 2 hernia repairs. Of note patient states he was hospitalized at [place] from 09/05-09/17. Patient states he presented to the emergency department at [facility] for constipation and dehydration. He states he was admitted and underwent a bowel regimen consisting of lactulose, MiraLax and enemas. He also underwent a cardiac procedure where they ?closed hole in my heart through my groin. Patient did bring his discharge paperwork from [facility] which lists ASD on diagnosis. Again he denies chest pain, dyspnea, lower extremity edema. Related Data Home Medications ?Medication ?Instructions ?Recorded ?Confirmed ?Last Taken ?Type metoprolol succinate 50 mg 50 mg PO DAILY 01/26/22 07/21/24 Unknown History tablet,extended release 24 hr tamsulosin 0.4 mg capsule (Flomax) 0.4 mg PO DAILY 05/04/22 07/21/24 Unknown History Allergies Allergy/AdvReac Type Severity Reaction Status Date / Time ciprofloxacin Allergy Intermediate Rash Verified 10/02/24 09:45 Review of Systems 2 Review of Systems: All systems reviewed & are unremarkable except as noted in HPI and below PMFSH Past Medical History Medical History Drug induced myoclonus Myoclonic jerking Butterfly rash Acute otitis media Joint pain Spasm of thoracic back muscle Sinusitis Diarrhea BMI 26.0-26.9,adult 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 Left lower quadrant abdominal pain BMI 25.0-25.9,adult BMI 24.0-24.9, adult Umbilical hernia Non-healing skin lesion Eye injury BMI 21.0-21.9, adult Screen for colon cancer Hematuria BMI 22.0-22.9, adult Patellofemoral syndrome, left Cardiomegaly Steatohepatitis Bladder wall thickening Prostate enlargement COPD (chronic obstructive pulmonary disease) DJD (degenerative joint disease) of cervical spine Rotator cuff tear Left inguinal hernia Abdominal hernia Anxiety disorder, unspecified Atrial fibrillation and flutter Congestive heart failure, unspecified Fatty liver Lumbar spondylosis Pulmonary emphysema Surgical History Surgical History H/O cardiac radiofrequency ablation H/O colonoscopy History of bladder surgery ablation History of vasectomy History of knee surgery History of bunionectomy History of inguinal hernia repair History of umbilical hernia repair Family History Family History Father No problems noted. Mother Thyroid activity decreased Fatty liver Stage 2 liver disease Sibling , covid-19 COVID-19 Other Diabetes mellitus Family history of coronary artery disease Family history of malignant neoplasm Hypertension Social History Social History Smoking status: Never smoker Second hand tobacco smoke exposure: Yes Alcohol intake: never Substance use: current Substance use type: marijuana Other substance usage details: OCCASIONAL Do You Feel Safe in your Home?: Yes Lack of Transportation: No Lack of Food: Never True Current Housing: I Have Housing Concerned About Future Housing: No Difficulty Paying Gas/Electric Bills: YES Difficulty Paying for Meds: No Currently Unemployed: No Education: High School Diploma/GED Difficulty w/ Childcare or Family Care: No Living arrangements: alone Additional living arrangements comments: is . 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 Gender identity (if verbalized by the patient): Male Spiritual care concerns: No Exam 2 Narrative: GENERAL: Well-appearing, well-nourished, and in no acute distress. HEAD: Normocephalic, atraumatic. EYES: EOMI. ENT: Nares clear, no rhinorrhea or epistaxis. Mucous membranes moist. NECK: Supple. CHEST: Clear to auscultation. No respiratory distress. HEART: Regular rate and rhythm. No murmur heard. Normal peripheral pulses. ABDOMEN: Normoactive bowel sounds. Abdomen soft with minimal tenderness to the left upper quadrant. Healing ecchymosis to the left groin and right groin with minimal tenderness. No erythema, warmth, induration, crepitus EXTREMITIES: Normal range of motion. No edema. SKIN: Warm, dry, no rash. NEURO: No focal deficits. Alert and oriented x3 Course Vital Signs Vital signs: Vital Signs Temperature 98.2 F 10/02/24 09:25 Pulse Rate 98 10/02/24 09:25 Respiratory Rate 12 10/02/24 09:25 Blood Pressure 131/89 10/02/24 09:25 Pulse Oximetry 100 10/02/24 09:25 Oxygen Delivery Room Air 10/02/24 09:25 Temperature 98.2 F 10/02/24 09:25 Pulse Rate 96 10/02/24 15:02 Respiratory Rate 20 10/02/24 15:02 Blood Pressure 113/79 10/02/24 15:02 Pulse Oximetry 99 10/02/24 15:02 Oxygen Delivery Room Air 10/02/24 09:25 MDM - Abdominal Pain MDM Narrative Medical decision making narrative: 59-year-old male presents to the emergency department for concerns for dehydration, abdominal pain and constipation. See HPI for further history. Triage vitals are stable. Patient is afebrile and nontoxic appearing and resting comfortably in exam bed. Exam is notable for the above. CBC without leukocytosis or anemia. Chemistries with BUN of 28, chronic hyperbilirubinemia 1.7, remainder of LFTs are unremarkable. Lipase is normal. EKG shows atrial fibrillation with a rate of 99 bpm with PVCs, right bundle- branch block, lateral ST depression unchanged from prior, no ST elevations. Patient denies any chest pain or shortness of breath. Chest x-ray shows airspace opacity in the right lower lung zone which may represent pneumonia. CT abdomen pelvis IMPRESSION: Significant fecal stasis within the colon, consistent with patient's history. Free fluid is identified within the pelvis, never a normal finding in a male patient - possibly reactive? No additional acute findings, as detailed above to account for patient's symptoms Patient updated on results. I discussed findings with [facility] transfer center. Transfer center confirms patient had an atrial septal defect and PFO fenestration closure 09/[address] Calvert. Patient had access through right and left femoral vein which is consistent with exam findings. I consulted [facility] public service representative, Dr. Crawford, who states he would not expect the patient have bleeding over 2 weeks postop and the free fluid in the pelvis is unlikely complication of the procedure. He did review the CT abdomen pelvis with contrast and sees no signs of active extravasation. He recommends a CTA of the abdomen and pelvis for further evaluation and if negative the patient is cleared from a cardiology standpoint. CTA of the abdomen and pelvis shows significant fecal stasis within the colon and no contrast extravasation identified on the current examination. Pt tolerating po intake. Patient was given a soapsuds enema with some output. Ultimately feel he can safely be discharged home with bowel regimen. Encouraged increased fluid intake and follow-up with PCP. Chest x-ray did show concerns for right-sided lower lobe consolidation, however no pneumonia was evident to the lung bases on CT abdomen and pelvis. He is requesting a productive cough and does have history COPD, will cover for COPD with Augmentin and doxycycline given reported productive cough. Discussed strict ED return precautions. Patient agreeable with the plan verbalized understanding. Discharged in stable condition. Lab Data 10/02/24 10:18 10/02/24 10:18 Labs: Lab Results 10/02/24 10/02/24 10/02/24 Range/Units 10:17 10:18 12:19 WBC 4.5 (4.5-10.0) K/mm3 RBC 4.39 L (4.6-6.20) M/mm3 Hgb 14.1 (14.0-18.0) g/dL Hct 41.1 L (42.0-52.0) % MCV 93.6 (80-100) fl MCH 32.1 (26-34) pg MCHC 34.3 (32-36) g/dl RDW 13.4 (11.5-14.5) % Plt Count 201 (150-375) k/mm3 MPV 9.1 (7.4-10.4) fl Immature Gran % (Auto) 0.2 (0-0.5) % Neut % (Auto) 64.3 (45.5-73.1) % Lymph % (Auto) 29.5 (18.3-44.2) % [place] % (Auto) 4.7 (2.6-8.5) % Eos % (Auto) 0.2 (0-4.4) % Baso % (Auto) 1.1 (0.2-1.2) % Lymph # (Auto) 1.33 (0.9-3.2) K/mm3 [place] # (Auto) 0.2 (0.1-0.6) K/mm3 Eos # (Auto) 0.0 (0-0.3) K/mm3 Baso # (Auto) 0.1 (0.0-0.1) K/mm3 Abs Immat Gran (auto) 0.01 (0.00-0.031) K/mm3 Absolute Neuts (auto) 2.9 (1.3-6.7) K/mm3 Absolute Nucleated RBC 0.000 (0.0-0.012) K/mm3 Nucleated RBC % 0.0 (0.0-0.2) % PT 13.6 (11.1-14.7) Seconds INR 1.0 APTT 29.2 (22.3-36.8) Seconds Sodium 138 (137-145) mmol/L Potassium 3.9 (3.4-5.0) mmol/L Chloride 107 (98-107) mmol/L Carbon Dioxide 24 (22-30) mmol/L Anion Gap 7 (4-12) mmol/L BUN 28 H (9-20) mg/dL Creatinine 0.91 (0.7-1.3) mg/dL Estim Creat Clear Calc 58 ml/min Estimated GFR > 60 (59 - ) Glucose 93 (65-110) mg/dL Calcium 9.4 (8.4-10.2) mg/dL Total Bilirubin 1.7 H (0.2-1.3) mg/dL AST 33 (17-59) U/L ALT 32 (6-50) U/L Alkaline Phosphatase 51 (38-126) U/L Total Protein 6.5 (6.3-8.2) g/dL Albumin 3.9 (3.5-5.1) g/dL Lipase 68 (23-300) U/L Urine Color (Yellow) Urine Appearance (Clear) Urine pH (5.0-9.0) Ur Specific [place] (1.001-1.035) Urine Protein (Negative) mg/dL Urine Glucose (UA) (Negative) mg/dL Urine Ketones (Negative) mg/dL Ur Blood (Man) (Negative) Urine Nitrate (Negative) Urine Bilirubin (Negative) Urine Urobilinogen (<2.0) mg/dL Leukocyte Esterase Rfl (Negative) LUPE/UL Urine RBC (0-2) /hpf Urine WBC (0-3) /hpf Ur Squamous Epith Cells (Few) /hpf Urine Bacteria /hpf Urine Casts Influenza A (RT-PCR) Negative (Negative) Influenza B (RT-PCR) Negative (Negative) RSV (RT-PCR) Negative (Negative) SARS-CoV-2 RNA (RT-PCR) Negative (Negative) 10/02/24 Range/Units 17:53 WBC (4.5-10.0) K/mm3 RBC (4.6-6.20) M/mm3 Hgb (14.0-18.0) g/dL Hct (42.0-52.0) % MCV (80-100) fl MCH (26-34) pg MCHC (32-36) g/dl RDW (11.5-14.5) % Plt Count (150-375) k/mm3 MPV (7.4-10.4) fl Immature Gran % (Auto) (0-0.5) % Neut % (Auto) (45.5-73.1) % Lymph % (Auto) (18.3-44.2) % [place] % (Auto) (2.6-8.5) % Eos % (Auto) (0-4.4) % Baso % (Auto) (0.2-1.2) % Lymph # (Auto) (0.9-3.2) K/mm3 [place] # (Auto) (0.1-0.6) K/mm3 Eos # (Auto) (0-0.3) K/mm3 Baso # (Auto) (0.0-0.1) K/mm3 Abs Immat Gran (auto) (0.00-0.031) K/mm3 Absolute Neuts (auto) (1.3-6.7) K/mm3 Absolute Nucleated RBC (0.0-0.012) K/mm3 Nucleated RBC % (0.0-0.2) % PT (11.1-14.7) Seconds INR APTT (22.3-36.8) Seconds Sodium (137-145) mmol/L Potassium (3.4-5.0) mmol/L Chloride (98-107) mmol/L Carbon Dioxide (22-30) mmol/L Anion Gap (4-12) mmol/L BUN (9-20) mg/dL Creatinine (0.7-1.3) mg/dL Estim Creat Clear Calc ml/min Estimated GFR (59 - ) Glucose (65-110) mg/dL Calcium (8.4-10.2) mg/dL Total Bilirubin (0.2-1.3) mg/dL AST (17-59) U/L ALT (6-50) U/L Alkaline Phosphatase (38-126) U/L Total Protein (6.3-8.2) g/dL Albumin (3.5-5.1) g/dL Lipase (23-300) U/L Urine Color Yellow (Yellow) Urine Appearance Clear (Clear) Urine pH 5.0 (5.0-9.0) Ur Specific [place] > 1.045 H (1.001-1.035) Urine Protein Trace (Negative) mg/dL Urine Glucose (UA) Negative (Negative) mg/dL Urine Ketones Trace H (Negative) mg/dL Ur Blood (Man) Negative (Negative) Urine Nitrate Negative (Negative) Urine Bilirubin Negative (Negative) Urine Urobilinogen 1.0 (<2.0) mg/dL Leukocyte Esterase Rfl Negative (Negative) LUPE/UL Urine RBC 0-2 (0-2) /hpf Urine WBC 0-5 (0-3) /hpf Ur Squamous Epith Cells None seen (Few) /hpf Urine Bacteria None seen /hpf Urine Casts 0-2 Influenza A (RT-PCR) (Negative) Influenza B (RT-PCR) (Negative) RSV (RT-PCR) (Negative) SARS-CoV-2 RNA (RT-PCR) (Negative) Imaging Data Radiologist's impression: ITS Impressions Abdomen/Pelvis CT 10/02/24 11:58 IMPRESSION: Significant fecal stasis within the colon, consistent with patient's history. Free fluid is identified within the pelvis, never a normal finding in a male patient - possibly reactive? No additional acute findings, as detailed above to account for patient's symptoms Chest X-Ray 10/02/24 12:40 IMPRESSION: Airspace opacity in right lower lung zone. Findings can represent pneumonia in appropriate clinical settings. Short-term follow-up chest radiograph is recommended after appropriate clinical therapy. Abdomen/Pelvis CTA 10/02/24 14:58 IMPRESSION: Significant fecal stasis within the colon, consistent with patient's history. No contrast extravasation identified on the current examination. Of note, if there was concern regarding patient's vascular access for remote history of a cardiac procedure, bleeding would be typically be retroperitoneal. The free fluid within the pelvis of simple attenuation values is likely reactive from patient's prolonged constipation (bowel distention combined with dehydration). Given the contrast load from both a contrast-enhanced CT plus a CTA of the abdomen and pelvis in the span of 3 hours, would recommend aggressive hydration for renal protection - not an easy task in a patient with a history of CHF. Discharge Plan Discharge Clinical Impression: Dehydration Constipation Qualifiers: Constipation type: unspecified constipation type Qualified Code(s): K59.00 - Constipation, unspecified CAP (community acquired pneumonia) Qualifiers: Laterality: right Lung location: lower lobe of lung Qualified Code(s): J18.9 - Pneumonia, unspecified organism Patient Disposition: Home Condition: Stable Instructions: Antibiotic Form, Constipation (DC) Additional Instructions: You were evaluated in the emergency department for abdominal fullness and pain. You were found to be constipated. Please use the bowel regimen as directed. Take antibiotics as directed. Drink plenty fluids including water, Gatorade and Pedialyte. Follow-up with your primary care provider. Return to the emergency department if you develop fever, focal abdominal pain, you are unable to tolerate food or fluids, or other concerning symptoms. Patient Language: Danish Prescriptions: New polyethylene glycol 3350 17 gram/dose powder 17 g PO BID Qty: 119 0RF docusate sodium 100 mg capsule 100 mg PO BID Qty: 60 0RF amoxicillin-pot clavulanate 875-125 mg tablet 1 tablet PO Q12H Qty: 14 0RF doxycycline monohydrate 100 mg capsule 100 mg PO BID Qty: 14 0RF No Action tamsulosin [Flomax] 0.4 mg capsule 0.4 mg PO DAILY mirtazapine 15 mg tablet 15 mg PO QHS Qty: 30 1RF metoprolol succinate 50 mg tablet extended release 24 hr 50 mg PO DAILY hydroxyzine HCl 25 mg tablet 25 mg PO QID PRN (Reason: anxiety) Qty: 120 0RF albuterol sulfate 90 mcg/actuation HFA aerosol inhaler 2 inh inhalation Q6H PRN (Reason: shortness of breath or wheezing) Qty: 8.5 2RF Eliquis 5 mg tablet 5 mg PO BID Qty: 180 0RF Narcan 4 mg/actuation spray,non-aerosol 4 mg NASAL Q2-3M PRN (Reason: opioid overdose) Qty: 2 0RF Rx Instructions: spray 1 dose into ONE nostril; alternate nostrils w each dose until help arrives Follow-up/Referrals: Louis Hewitt MD [Primary Care Provider] -
[2024-10-02] MEDS: SODIUM CHLORIDE 0.9% IV 1,000 ML 999 ML IV CONT (11:33)
[2024-10-02] MEDS: MORPHINE SULFATE (*CRX) 4 MG/ML INJ IV PUSH (11:33)
--- NOTE | 2024-10-02 12:26 | PC.NURSE ---
Pt still unable to urinate P refused straight cath ans states that unable to tolerate after explaining the step by step process of a straight cath
--- NOTE | 2024-10-02 12:27 | ECG_ITS ---
Test Date: 2024-10-02 12:38:06 Measurements Intervals [place] Rate: 99 P: 0 IN: 0 QRS: 236 QRSD: 153 T: 0 QT: 397 QTc: 511 Interpretive Statements ATRIAL FIBRILLATION WITH ABERRANT CONDUCTION OR VENTRICULAR PREMATURE COMPLEXES RIGHT AXIS DEVIATION [QRS AXIS > 100] RIGHT BUNDLE BRANCH BLOCK [120+ ms QRS DURATION, UPRIGHT V1, 40+ ms S IN I/aVL/V4/V5/V6] ST DEVIATION AND MARKED T-WAVE ABNORMALITY, CONSIDER ANTEROLATERAL ISCHEMIA [-0.5+ mV T-WAVE IN I/aVL/V3-V6] sent Electronically Signed On 10-02-2024 13:17:31 CDT by Maribel Sherman M.D.
[2024-10-02 13:15] LABS: Influenza A QL RT-PCR Negative (Negative); Influenza B QL RT-PCR Negative (Negative); RSV RNA, RT-PCR Negative (Negative); SARS-CoV-2 RNA PCR Negative (Negative)
[2024-10-02 13:32] LABS: INR 1.0; Prothrombin Time 13.6 Seconds (11.1-14.7)
[2024-10-02 13:33] LABS: Partial Thromboplastin Time 29.2 Seconds (22.3-36.8)
[2024-10-02 18:28] LABS: Add Urine Microscopic? YES; Appearance Urine Clear (Clear); Glucose Urine UA Negative (Negative); Leukocyte Esterase Ur Negative LEU/UL (Negative); Nitrate Urine Negative (Negative); Non Pathogenic Casts 0-2; Specific Grav Ur > 1.045 (1.001-1.035)
[2024-10-02] MEDS: DOXYCYCLINE HYCLATE 100 MG TABLET PO (19:19)
== END 2024-10-02 19:35 | disposition home or self-care (01) ==
PROVIDERS: Emergency Provider Physician Assistant; PCP Family Medicine
DX: J18.9 Pneumonia, unspecified organism (principal); J44.0 Chronic obstructive pulmonary disease with (acute) lower respiratory infection; E86.0 Dehydration; K59.00 Constipation, unspecified; I48.91 Unspecified atrial fibrillation; K75.81 Nonalcoholic steatohepatitis (NASH); I50.9 Heart failure, unspecified; F41.9 Anxiety disorder, unspecified; E80.6 Other disorders of bilirubin metabolism; I45.10 Unspecified right bundle-branch block; I49.3 Ventricular premature depolarization; F12.90 Cannabis use, unspecified, uncomplicated; Z79.01 Long term (current) use of anticoagulants; Z20.822 Contact with and (suspected) exposure to COVID-19
CPT/HCPCS: 36415; 71045; 74174; 74177; 80053; 81001; 83690; 85025; 85610; 85730; 87637; 93005; 96361; 96374; 99284; A9270; J2270; J7030; Q9967

== ENCOUNTER 2024-11-02 15:26 | Inpatient (IN) | payer MEDICARE, SELFPAY ==
--- NOTE | ~2024-11-02 | MR_ITS ---
EXAMINATION: MR MRCP wo/w con/w 3D wo ind DATE: 11/04/2024 08:23 INDICATION: 40 mm pancreatic head/ampullary lesion on prior CT TECHNIQUE: Magnetic resonance imaging (MRI) of the abdomen was performed without intravenous contrast . Patient was unable to tolerate the complete study and the patient request the study was terminated prior to the administration of the planned intravenous contrast. Sequences included coronal T2-weight ed SS-FSE, coronal T2-weighted FS SS-FSE, coronal T2-weighted FS FIESTA, axial T1-weighted dual-echo FSPGR, axial T2-weighted SS-FSE, axial T2-weighted STIR FSE and coronal T1-weighted LAVA. COMPARISON: CT studies dated 11/02/2024 and 10/02/2024 FINDINGS: ABDOMEN MRI: Heart size normal. No pericardial or pleural effusion. Liver, spleen, bilateral adrenal glands and ri ght kidney are normal. There are couple T2 hyperintense left renal cysts measuring up to 9 mm in maxi mal diameter. There is dependently layering sludge within the otherwise normal-appearing gallbladder. No evident cholelithiasis. Normal common bile duct measuring up to 5 mm in maximal diameter. No intr ahepatic biliary ductal dilation. Pancreas appears normal. No mass identified at the head of the panc reas/ampulla. Review of prior CT imaging including the sagittal and coronal reconstructions suggest t he hypodense region noted loss of the common bile duct at the head of the pancreas appears to represe nt an artifactual appearance of a nodule resulting from a fold of the wall of the duodenum viewed en face. No bowel obstruction. Small amount of ascites scattered throughout the abdomen and pelvis. Ther e is also mild soft tissue edema in the mesentery, retroperitoneum and along the paraspinal muscles. No pathologically enlarged abdominal lymphadenopathy. Mild lumbar levocurvature with severe spondylos is. No pathologic marrow replacing process. IMPRESSION: 1. Normal pancreas. Nodular appearing region of concern on prior CT upon review of the [address] including sagittal and coronal images suggests this represents artifactual appearance of a nodule resulting from a fold in the duodenum viewed en face. 2. Nonspecific soft tissue tissue edema and small amount of ascites scattered throughout the abdomen and pelvis. 3. Gallbladder sludge with no gallstones or intra or extrahepatic biliary ductal dilation. Reviewed, dictated and finalized at location A. IMPRESSION: 1. Normal pancreas. Nodular appearing region of concern on prior CT upon review of the [address] studies including sagittal and coronal images suggest s this represents artifactual appearance of a nodule resulting from a fold in t he duodenum viewed en face. 2. Nonspecific soft tissue tissue edema and small amount of ascites scattered t hroughout the abdomen and pelvis. 3. Gallbladder sludge with no gallstones or intra or extrahepatic biliary ducta l dilation.
--- NOTE | ~2024-11-02 | XR_ITS ---
MODIFIED ESOPHAGRAM HISTORY: Dysphagia. TECHNIQUE: Modified barium esophagram was performed on 11/03/2024. I administered fluoroscopy and perf ormed the exam with speech pathologist. Patient was seated for lateral fluoroscopic imaging for jessica stion of thin liquids, pudding, solids and quantified amounts, followed by thin liquids in uncontroll ed amounts. This was recorded on tape. A single fluoroscopic spot image was also recorded. The DAP fo r this procedure was 0.907 Gycm2. The amount of fluoroscopy time used during this procedure was 1.9 m inutes. FINDINGS: Oral stage: Adequate function. Pharyngeal stage: There is reduced tongue base retraction resulting in mild vallecular residue with t hin liquids. No laryngeal penetration or aspiration.. Cervical/esophageal stage: Adequate function. IMPRESSION: Patient tolerated regular consistency oral feedings in the upright position. Please salomon elate with speech pathologist findings and specific feeding recommendations. Reviewed, dictated and finalized at location A. IMPRESSION: Patient tolerated regular consistency oral feedings in the upright position. Please correlate with speech pathologist findings and specific feedi ng recommendations.
--- NOTE | ~2024-11-02 | XR_ITS ---
EXAMINATION: XR barium swallow DATE: 11/03/2024 11:49 INDICATION: Dysphagia TECHNIQUE: The patient drank thick barium, gas-producing crystals, and thin barium. Fluoroscopic spot radiographs of the hypopharynx and esophagus were obtained. Fluoroscopy exposure time was 2.3 minut es. COMPARISON: None. FINDINGS: The pharynx is symmetric and without evidence of mass lesion or mucosal irregularity. The e sophagus is normal without mass or stricture. There are some tertiary contractions in the mid to dist al esophagus superimposed over the primary peristaltic wave. Esophageal motility is otherwise within normal limits for age. There is no hiatal hernia. There was no gastroesophageal reflux with provocati ve maneuvers. Large Amplatz device projecting over the heart which could represent a ASD closure chelsea ce or left atrial appendage occlusion device. IMPRESSION: 1. Mild esophageal dysmotility with some tertiary contractions in mid to distal esophagus. Otherwise unremarkable esophagram with no masses or strictures. Reviewed, dictated and finalized at location A.
--- NOTE | ~2024-11-02 | CT_ITS ---
EXAMINATION: CT abdomen pelvis w con DATE: 11/02/2024 18:27 INDICATION: ab pain TECHNIQUE: Computed tomography (CT) of the abdomen and pelvis was performed with 100 mL Omnipaque-350 intravenous contrast. Portal venous scanning was attempted but arterial phased images were obtained, possibly due to decreased cardiac output. Automated exposure control and iterative reconstruction te chnique were employed. The dose-length product was 164.34 mGy-cm. COMPARISON: 10/02/2024 and 07/21/2024. FINDINGS: Exam limited by contrast phase and generalized paucity of abdominal pelvic fat. Lower thorax: Right atrial and right ventricular enlargement. Liver: Stable mild heterogeneity in the right liver lobe. Biliary/Gallbladder: Mild gallbladder wall hyperemia, likely related to contrast phase, possible bili vijay sludge, otherwise normal. Mild dilation of the common duct to 7 mm. Pancreas: Visible but not overtly dilated pancreatic duct, measuring 2 mm. 14 mm hypoenhancing focus in the pancreatic head which appears to compress and displace the adjacent bile and pancreatic ducts. Spleen: Normal. Adrenals:No mass. Kidneys: No suspicious mass, obstructing stone, or hydronephrosis. Subcentimeter hypodensities, too s mall to characterize but most likely represent cysts. GI tract: Moderate distal esophageal and gastric wall edema. No small or large bowel dilation. Append ix not confidently visualized. Mesentery/Peritoneum: No ascites, mass, or free air. Retroperitoneum: No mass. Pelvis: Normal urinary bladder. Prostatomegaly.. Soft Tissues: Mild body wall edema. Bones: No acute osseous finding. IMPRESSION: Right ventricular and right atrial enlargement. Decreased cardiac output may be present given the lat e arterial appearance of these portal venous timed images. Moderate esophagitis/gastritis. Specific heterogeneity in the medial right hepatic lobe. Possible 14 mm pancreatic head or ampullary lesion. Recommend MR/MRCP of the abdomen without and with contrast for further evaluation of these fi ndings. Consider GI consultation for potential ERCP. Very mild extra hepatic bile duct dilation. Reviewed, dictated and finalized at location K. IMPRESSION: Right ventricular and right atrial enlargement. Decreased cardiac output may be present given the late arterial appearance of these portal venous timed images . Moderate esophagitis/gastritis. Specific heterogeneity in the medial right hepatic lobe. Possible 14 mm pancrea tic head or ampullary lesion. Recommend MR/MRCP of the abdomen without and with contrast for further evaluation of these findings. Consider GI consultation fo r potential ERCP. Very mild extra hepatic bile duct dilation.
--- OUTSIDE RECORDS SUMMARY | 2024-11-02 15:29 | XMS_ITS | Clinical Summary ---
Author Organization [facility] [employer] Address [address] [place] [address] Care Team Providers Care Button Grader Name Role Phone Louis Hewitt MD Primary Care Provider [phone] Source Comments [facility] [employer],non-owned Affiliates and Associated Physician Practices is amultiple site organization consisting of ambulatory clinics and hospital sitesin [place], [place], [place] and [place]. This disclosure is being madepursuant to the Care Everywhere program and may not contain all information available regarding this patient. 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
--- OUTSIDE RECORDS SUMMARY | 2024-11-02 15:29 | XMS_ITS | Encounter Summary ---
Author Organization [facility] Address [address] [place] [address] Care Team Providers Care Spring Salvage Worker Name Role Phone Louis Hewitt MD Primary Care Provider [phone] Encounter Details Date Type Department Care Team (Late st Contact Info) Description 12/09/2018 Telephone [facility] [address] [place] [address] Eunice Jara RN Social History Tobacco Use Types Packs/Day Years Used Date Smoking Tobacco: Never Smokeless Tobacco: Never Sex and Gender Information Value Date Recorded Sex Assigned at Not on file 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
--- OUTSIDE RECORDS SUMMARY | 2024-11-02 15:29 | XMS_ITS | Encounter Summary ---
Author Organization [facility] Address [address] [place] [address] Care Team Providers Care Metal Welder Name Role Phone Louis Hewitt MD Primary Care Provider + [phone] Margarita Stoner RN Unavailable [phone] Encounter Details Date Type Department Care Team (Late st Contact Info) Description 09/15/2024 Documentation [facility] Case Management [address] [place] [address] Jazmin Fields RN Social History Tobacco Use Types Packs/Day Years Used Date Smoking Tobacco: Never Smokeless Tobacco: Never [facility] Utilities Answer Date Recorded In the past 12 months has [employer] electric, gas, oil, or water company threatened to shut off services in your home? No 09/09/2024 Social Connection and Isolation Panel Answer Date Recorded In a typical week, how many times do you talk on the phone with family, friends, or neighbors? More than three times a week 09/09/2024 How often do you get togethe r with friends or relatives? More than three times a week 09/09/2024 How often do you attend chur ch or shinto services? Never 09/09/2024 Do you belong to any clubs o r organizations such as yarsanism groups, unions, fraternal or athletic groups, or [...] any time in the past 12 m [facility], were you homeless or living in a nursing home (including now)? No 09/09/2024 Personal Safety Answer Date Recorded Have you ever been in or are you currently in a harmful physical or emotional relationship or is someone making you feel afraid or unsafe? 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
--- OUTSIDE RECORDS SUMMARY | 2024-11-02 15:29 | XMS_ITS | Encounter Summary ---
Author Organization [facility] Address [address] [place] [address] Phone Care Team Providers Care Semiconductor Testing Group Leader Name Role Phone Louis Hewitt MD Primary Care Provider + [phone] Margarita Stoner RN Unavailable [phone] Margarita Stoner RN Unavailable [phone] Encounter Details Date Type Department Care Team (Late st Contact Info) Description 05/08/2023 Orders Only [facility] Scanning, Provider Social History Tobacco Use Types Packs/Day Years Used Date Smoking Tobacco: Never Smokeless Tobacco: Never Sex and Gender Information Value Date Recorded Sex Assigned at Not on file 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
--- OUTSIDE RECORDS SUMMARY | 2024-11-02 15:29 | XMS_ITS | Encounter Summary ---
Author Organization [facility] Address [address] [place] [address] Phone Care Team Providers Care Informatica Name Role Phone Louis Hewitt MD Primary Care Provider + [phone] Margarita Stoner RN Unavailable [phone] Margarita Stoner RN Unavailable [phone] Encounter Details Date Type Department Care Team (Late st Contact Info) Description 07/18/2023 Orders Only [facility] Scanning, Provider Social History Tobacco Use Types Packs/Day Years Used Date Smoking Tobacco: Never Smokeless Tobacco: Never Sex and Gender Information Value Date Recorded Sex Assigned at Not on file 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
--- OUTSIDE RECORDS SUMMARY | 2024-11-02 15:29 | XMS_ITS | Clinical Summary ---
Author Organization [facility] Address [address] [place] [address] Care Team Providers Care Aluminum Siding Applicator Name Role Phone Louis Hewitt MD Primary Care Provider + [phone] Allergies Active Allergy Reactions Criticality Noted Date Comments Ciprofloxacin Fever,Rash Medium 08/26/2018 Medications Eliquis 5 mg tabletIndications :atrial fibrillation,atri al fibrillation s/p ASD occluder indefinitely Take 1 tablet (5 mg total) by mouth 2 (two) times a day 1 Active aspirin 81 mg chewable tabletIndications :prevention of thrombosis,preven tion of thrombosis x1 month Take 1 tablet (81 mg total) by mouth daily 30 tablet 5 Active clopidogreL (PLAVIX) 75 mg tabletIndications :thrombosis prevention after ASD occluder x3 months Take 1 tablet (75 mg total) by mouth daily 90 tablet 5 12/18/19 25 Active apixaban (ELIQUIS) 5 mg tabletIndications :atrial fibrillation Take 1 tablet (5 mg total) [...] total) by mouth daily 30 tablet 5 09/19/19 26 Active acetaminophen 500 mg capsule Take 2 capsules (1,000 mg total) by mouth every 6 (six) hours as needed for pain 30 tablet 5 Active Active Problems Problem Noted Date Diagnosed [...] 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 Now appears improved /. Pt with persistent odd, flat affect 4/, but no delusions. Discussed psych, tox follow [...] orthopnea component -CTPE negative for acute process -618am breathing comfortably Assessment & Plan (09/09/2024 11:43 AM CDT): -Reported history of COPD, patient denies smoking history, no PFTs filed, chart history of albuterol - not currently using -Lungs CTA b/l without rhonchi/rales/wheezing -RPP neg -maintaining O2 sats on RA, unclear if positional, possible orthopnea component -CTPE negative for acute process -17am breathing comfortably Assessment & Plan (09/08/2024 10:24 AM CDT): -Reported history of COPD, patient denies smoking history, no PFTs filed, chart history of albuterol - not currently using -Lungs CTA b/l without rhonchi/rales/wheezing -RPP neg -maintaining O2 sats on RA, unclear if positional, possible orthopnea component -CTPE negative for acute process -16am breathing comfortably Assessment & Plan (09/07/2024 11:07 AM CDT): -Reported history of COPD, patient denies smoking history, no PFTs filed, chart history of albuterol - not currently using -Lungs CTA b/l without rhonchi/rales/wheezing -RPP neg -maintaining O2 sats on RA, unclear if positional, possible orthopnea component -CTPE negative for acute process -09/07am breathing comfortably Assessment & Plan (09/06/2024 12:46 [...] Care Team Description 09/22/2024 SHOP/CHAP Initial Outreach [facility] OP CASE MANAGEMENT [address] [place] [address] Margarita Stoner RN 09/19/2024 SHOP/CHAP Initial Outreach [facility] CASE MANAGEMENT [address] [place] [phone] Margarita Stoner RN 09/18/2024 SHOP/CHAP Initial Outreach [facility] CASE MANAGEMENT [address] [place] [phone] Margarita Stoner RN 09/18/2024 SHOP/CHAP Initial Eligibility Review [facility] CASE [facility]NAGEMENT [address] [place] [phone] Margarita Stoner RN 09/17/2024 Telephone [facility] [address] [place] [phone] Bess Lim MD [facility]D f/u appt with Echo 09/15/2024 11:45 AM CDT - 09/15/2024 1:35 PM CDT Surgery [facility] [address] [place], [place] [phone] Tin Calvert MD PhD ATRIAL SEPTAL DEFECT (ASD), PATENT FORAMEN OVALE (PFO), FENESTRATION CLOSURE [id number] 09/15/2024 Documentation [facility] Case Management [address] [place] [phone] Jazmin Fields RN 09/08/2024 Telephone [facility] [address] [place] [address] 8th Floor [address] [place] [phone] Taylor Last 09/05/2024 10:37 PM CDT - 09/17/2024 2:30 PM CDT Hospital Encounter [address] [phone] Lisa Ibarra MD Chan, Philip, MD Freilich, [...] (ASD), PATENT FORAMEN OVALE (PFO), FENESTRATION CLOSURE [id number]; Surgeon: Tin Calvert MD PhD; Location: [facility] CARDIAC NET TECHNICAL ARCHITECT; Service: Cardiovascular; Laterality: N/A; with ICE prior to procedure Medical devices from this surgery are in the Medical Devices section. 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 09/10/2024 Shortness of breath 09/06/2024 Family History Medical History Relation Name Comments No Known Problems Father Heart failure Mother Liver disease Mother Relation Name Status Comments Father Mother Social History Tobacco Use Types Packs/Day Years Used Date Smoking Tobacco: Never Smokeless Tobacco: Never Tobacco Cessation:Counseling Given: Not Answered [facility] Utilities Answer Date Recorded In the past 12 months has [employer], gas, oil, or water [employer] with [employer] threatened to shut off services in your [...] week 09/09/2024 How often do you attend [facility] or synagogue services? Never 09/09/2024 Do you belong to any clubs o r organizations such as jehovah's witness groups, unions, fraternal or athletic groups, or [...] any time in the past 12 m [place], were you homeless or living in a prison (including now)? No 09/09/2024 Personal Safety Answer Date Recorded Have you ever been in or are you currently in a harmful physical or emotional relationship or is someone making you feel afraid or unsafe? 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 Gender Identity Not on file Sexual Orientation [...] (1 of 2) 2014 Influenza Vaccine (#1) 2024 Hepatitis C Screening Completed 06/29/2024, 021 Medical Devices Implanted Type Area Binder Caser Device Identifier Shelf Expiration Date Model / Serial / Lot [employer] Amplatzer 38mm 48-54mm 4mm 2 Disk Self Expandable Radiopaque Band Latex Free 9-Asd-038 - [id number] - [id number] Implanted:Qty: 1 on 09/15/2024 by Tin Calvert MD PhD at [facility] Septal Defect Closure Device N/A: Atrial Septal Defect [employer] 02/22/2029 9-ASD-038 / [id number] / [id number] [employer] System Closure Repair Femoral Artery Suture Mediated Perclose Prostyle 21667-97 - [id number] - [id number] Implanted:Qty: 1 on 09/15/2024 by Tin Calvert MD PhD at [facility] Vascular Closure Device Right: Femoral Vein [employer] 07/23/2026 19125-83 / [id number] / [id number] [employer] System Closure Repair Femoral Artery Suture Mediated Perclose Prostyle 70425-76 - [id number] - [id number] Implanted:Qty: 1 on 09/15/2024 by Tin Calvert MD PhD at [facility] Vascular Closure Device Left: Femoral Vein [employer] 07/23/2026 52446-76 / [id number] / [id number] [employer] Angio-Seal Vip 6fr Closere Device [id number] - [id number] - [id number] Implanted:Qty: 1 on 09/15/2024 by Tin Calvert MD PhD at [facility] Vascular Closure Device Left: Femoral Vein [employer] Tony 05/19/2025 [id number] / [id number] Procedures Procedure Name Priority Date/Time Associated [...] MD LAB BLOOD ORDERABLES Final R esult [facility] Department [place] [address] * Differential, auto (09/16/2024 9:30 PM CDT) Neutrophil abs 3.60 1.50 - 6.50 K/cumm Imm gran abs 0.02 0.00 - 0.10 K/cumm [facility] Lymphocyte abs 1.89 0.80 - 3.30 K/cumm [facility] Monocyte abs 0.47 0.20 - 0.80 K/cumm [facility] Eosinophil abs 0.05 0.00 - 0.50 K/cumm [facility] Basophil abs 0.05 0.00 - 0.10 K/cumm [facility] Neutrophil pct 59.3 % [facility] Comment: Interpretive Data Percent cell count reference ranges are not reported, since discordance with absolute values may lead to misinterpretation of CBC data. Current Interpretive Data was last revised on 2017. Imm gran pct 0.3 % [facility] Comment: Interpretive Data Percent cell count reference ranges are not reported, since discordance with absolute values may lead to misinterpretation of CBC data. Current Interpretive Data was last revised on 2017. Lymphocyte pct 31.1 % [facility] Comment: Interpretive Data Percent cell count reference ranges are not reported, since discordance with absolute values may lead to misinterpretation of CBC data. Current Interpretive Data was last revised on 2017. Monocyte pct 7.7 % [facility] Comment: Interpretive Data Percent cell count reference ranges are not reported, since discordance with absolute values may lead to misinterpretation of CBC data. Current Interpretive Data was last revised on 2017. Eosinophil pct 0.8 % [facility] Comment: Interpretive Data Percent cell count reference ranges are not reported, since discordance with absolute values may lead to misinterpretation of CBC data. Current Interpretive Data was last revised on 2017. Basophil pct 0.8 % [facility] Comment: Interpretive Data Percent cell count reference ranges are not reported, since discordance with absolute values may lead to misinterpretation of CBC data. Current Interpretive Data was last revised on 2017. Blood 09/16/2024 9:30 PM CDT 09/16/2024 10:23 PM CDT us Christine Rossi MD LAB BLOOD ORDERABLES Final R esult [facility] Department [place] [address] * (ABNORMAL) CBC with auto differential (09/16/2024 9:30 PM CDT) Pathologist [facility] WBC 6.08 3.80 - 9.90 K/cumm Hgb 13.2 13.0 - 17.5 g/dL [facility] Hct 37.9(L) 38.9 - 50.3 % [facility] Plt 173 150 - 400 K/cumm [facility] MPV 8.9(L) 9.1 - 12.3 fL [facility] RBC 4.11(L) 4.30 - 5.80 M/cumm [facility] MCV 92.2 81.3 - 96.4 fL [facility] MCH 32.1 27.1 - 33.3 pg [facility] MCHC 34.8 32.3 - 35.7 g/dL [facility] RDW CV 13.6 11.1 - 14.9 % [facility] RDW SD 46.1 35.7 - 48.1 fL [facility] NRBC abs 0.00 0.00 - 0.01 K/cumm [facility] Blood 09/16/2024 9:30 PM CDT 09/16/2024 10:23 PM CDT us Christine Rossi MD LAB BLOOD ORDERABLES Final R esult [facility] Department [place] [address] * (ABNORMAL) Comprehensive metabolic panel (09/16/2024 9:30 PM CDT) Pathologist [facility] Sodium 139 135 - 145 mmol/L Potassium, pl 4.2 3.3 - 4.9 mmol/L [facility] Chloride 103 97 - 110 mmol/L [facility] CO2 28 22 - 32 mmol/L [facility] Anion gap 8 2 - 15 mmol/L [facility] BUN 17 6 - 25 mg/dL [facility] Creatinine 0.98 0.80 - 1.30 mg/dL [facility] Glucose 99 70 - 199 mg/dL [facility] Comment: Interpretive Data Fasting glucose >/= [...] 2022. Calcium 9.1 8.5 - 10.3 mg/dL [facility] Bilirubin, total 0.7 0.1 - 1.2 mg/dL [facility] Protein, pl 6.4(L) 6.5 - 8.5 g/dL [facility] Albumin 4.0 3.5 - 5.0 g/dL [facility] Alk phos 50 40 - 130 Units/L [facility] ALT 34 7 - 55 Units/L [facility] AST 23 10 - 50 Units/L [facility] Blood 09/16/2024 9:30 PM CDT 09/16/2024 10:23 PM CDT us Christine Rossi MD LAB BLOOD ORDERABLES Final R esult [facility] [place] [address] * TRANSTHORACIC ECHO (TTE) LIMITED/FOLLOW UP W LTD DOPPLER/CF W CONTRAST W BUBBLE (09/16/2024 12:21 PM CDT) EF Mod BP 64 % CONS SCIMAGE Anatomical Region Laterality Modality Ultrasound 09/16/2024 11:1 5 AM CDT Narrative 09/16/2024 12:52 PM CDT [facility] [place] [address] [place] [address] Transthoracic Echocardiographic Report Patient Name: MIGUELITO LOPES : 1965 (59y ) Gender: M Study Date: 09/16/2024 11:15:35 AM Ht(Inch): 65 Wt(Lb): 121.03 BSA: 1.59 Health Care Assistant: Javi Marte RDCS Location: [id number] Order Provider: GIULIA GALLAGHER Heart Rate: 81 [...] Procedure Note Binu Urban MD - 09/16/2024 [facility] [place] [address] Transthoracic Echocardiographic Report Patient Name: MIGUELITO LOPES : 1965 (59y ) Gender: M Study Date: 09/16/2024 11:15:35 AM Ht(Inch): 65 Wt(Lb): 121.03 BSA: 1.59 Health Care Assistant: Javi Marte RDCS Location: [id number] Order Provider: GIULIA GALLAGHER Heart Rate: 81 [...] LA Length 4C 8.30 cm MV Decel Wolt422.84 msec [ 104.00 - 258.00 ] LA [...] Jacome MD LAB BLOOD ORDERABLES Final Result [facility] Department [place] [address] * Differential, auto (09/15/2024 8:29 PM CDT) [facility] Neutrophil abs 4.26 1.50 - 6.50 K/cumm Imm gran abs 0.01 0.00 - 0.10 K/cumm [facility] Lymphocyte abs 1.51 0.80 - 3.30 K/cumm [facility] Monocyte abs 0.32 0.20 - 0.80 K/cumm [facility] Eosinophil abs 0.01 0.00 - 0.50 K/cumm [facility] Basophil abs 0.04 0.00 - 0.10 K/cumm [facility] Neutrophil pct 69.1 % [facility] Comment: Interpretive Data Percent cell count reference ranges are not reported, since discordance with absolute values may lead to misinterpretation of CBC data. Current Interpretive Data was last revised on 2017. Imm gran pct 0.2 % [facility] Comment: Interpretive Data Percent cell count reference ranges are not reported, since discordance with absolute values may lead to misinterpretation of CBC data. Current Interpretive Data was last revised on 2017. Lymphocyte pct 24.6 % [facility] Comment: Interpretive Data Percent cell count reference ranges are not reported, since discordance with absolute values may lead to misinterpretation of CBC data. Current Interpretive Data was last revised on 2017. Monocyte pct 5.2 % [facility] Comment: Interpretive Data Percent cell count reference ranges are not reported, since discordance with absolute values may lead to misinterpretation of CBC data. Current Interpretive Data was last revised on 2017. Eosinophil pct 0.2 % [facility] Comment: Interpretive Data Percent cell count reference ranges are not reported, since discordance with absolute values may lead to misinterpretation of CBC data. Current Interpretive Data was last revised on 2017. Basophil pct 0.7 % [facility] Comment: Interpretive Data Percent cell count reference ranges are not reported, since discordance with absolute values may lead to misinterpretation of CBC data. Current Interpretive Data was last revised on 2017. Blood 09/15/2024 8:29 PM CDT 09/15/2024 10:00 PM CDT us Christine Rossi MD LAB BLOOD ORDERABLES Final R esult [facility] Department [place] [address] * (ABNORMAL) CBC with auto differential (09/15/2024 8:29 PM CDT) WBC 6.15 3.80 - 9.90 K/cumm Hgb 13.1 13.0 - 17.5 g/dL [facility] Hct 36.6(L) 38.9 - 50.3 % [facility] Plt 181 150 - 400 K/cumm [facility] MPV 9.3 9.1 - 12.3 fL [facility] RBC 4.06(L) 4.30 - 5.80 M/cumm [facility] MCV 90.1 81.3 - 96.4 fL [facility] MCH 32.3 27.1 - 33.3 pg [facility] MCHC 35.8(H) 32.3 - 35.7 g/dL [facility] RDW CV 13.5 11.1 - 14.9 % [facility] RDW SD 44.7 35.7 - 48.1 fL [facility] NRBC abs 0.00 0.00 - 0.01 K/cumm [facility] Blood 09/15/2024 8:29 PM CDT 09/15/2024 10:00 PM CDT us Christine Rossi MD LAB BLOOD ORDERABLES Final R esult Performing Organization Address [facility] Co de Phone Number [facility] [employer] [address] * Protime-INR (09/15/2024 8:29 PM CDT) PT 12.2 9.7 - 13.0 sec INR 1.13 0.90 - 1.20 [facility] Comment: Interpretive data Oral anticoagulant therapeutic [...] ORDERABLES Final R esult Performing Organization Address [facility] Co de Phone Number [facility] [place] [employer] [address] * (ABNORMAL) Bilirubin, direct (09/15/2024 8:29 PM CDT) Bilirubin, direct 0.4(H) 0.1 - 0.3 mg/dL Blood 09/15/2024 8:29 PM CDT 09/15/2024 9:58 PM CDT Vince Jacome MD LAB BLOOD ORDERABLES Final Result [facility] Department [place] [address] * (ABNORMAL) Comprehensive metabolic panel (09/15/2024 8:29 PM CDT) Pathologist [facility] Sodium 139 135 - 145 mmol/L Potassium, pl 3.5 3.3 - 4.9 mmol/L [facility] Chloride 105 97 - 110 mmol/L [facility] CO2 25 22 - 32 mmol/L [facility] Anion gap 9 2 - 15 mmol/L [facility] BUN 17 6 - 25 mg/dL [facility] Creatinine 0.93 0.80 - 1.30 mg/dL [facility] Glucose 191 70 - 199 mg/dL [facility] Comment: Interpretive Data Fasting glucose >/= [...] 2022. Calcium 8.6 8.5 - 10.3 mg/dL [facility] Bilirubin, total 1.2 0.1 - 1.2 mg/dL [facility] Protein, pl 6.0(L) 6.5 - 8.5 g/dL [facility] Albumin 3.6 3.5 - 5.0 g/dL [facility] Alk phos 47 40 - 130 Units/L [facility] ALT 37 7 - 55 Units/L [facility] AST 23 10 - 50 Units/L [facility] Blood 09/15/2024 8:29 PM CDT 09/15/2024 9:58 PM CDT Vince Jacome MD LAB BLOOD ORDERABLES Final Result [facility] Department [place] [address] * XR Chest 1 View (09/15/2024 5:53 [...] normal. Electronically signed by: Jewels Barrett M.D. us Giulia Gallagher ALCOHOL LAW ENFORCEMENT AGENT IMG XR PROCEDURES Grace l Result * [...] Using ultrasound directed micropuncture technique and 8 Albanian 25 cm sheath inserted into the left femoral vein using percutaneous approach. A 12 Albanian cook sheath inserted into the right femoral vein using percutaneous approach. Two 6 Albanian pro glides were placed prior to sheath insertion. Heparin was administered to maintain ACT of 300 seconds or greater. A balloon tip Arrow catheter was advanced to the right pulmonary artery for O2 saturations and hemodynamics. Imaging was performed via the left femoral vein with a 8 Albanian [employer] intracardiac echo system. The interatrial septum was readily crossed with a 1.5 mm J-tip Amplatzer wire and a multipurpose catheter this was exchanged for a 34 mm sizing balloon. Sizing balloon was exchanged for a 12 Albanian torque view sheath. 38 mm Amplatzer ASD occluder was deployed after multiple attempts across the interatrial septum. Upon completion of the case the 12 Albanian right venous sheath was removed and a Perclose system cinched. The 8 Albanian sheath in the left femoral vein was removed with some bleeding that required an additional 6 Albanian Angio-Seal to be deployed. Manual compression was [...] inflated until there is no evidence of xdqi-ss-[id number] flow by intra cardiac echo Doppler. Both [...] stable for 20 minutes. A 70 degree SYRIAC projection shows adequate splay anteriorly and compression [...] time, low range (09/15/2024 2:01 PM CDT) [facility] ACT 266(H) 123 - 168 sec POC Performer [id number] [facility] POC Device Number [id number] [facility] Blood 09/15/2024 2:01 PM CDT 09/15/2024 2:01 PM CDT Vince Jacome MD LAB POCT ORDERABLES - DEVIC E Final Result Performing Organization Address [facility] Co de Phone Number [facility] Department [place] [employer] [place] [address] * POCT oxyhemoglobin (09/15/2024 1:23 PM CDT) [facility] HOSPITAL NURSING ASSISTANT Oxyhemoglobin 86.3 >=65.0 % HOSPITAL NURSING ASSISTANT Hemoglobin 13.2 13.0 - 17.5 g/dL [facility] HOSPITAL NURSING ASSISTANT O2 content 15.9 15.0 - 22.0 Vol % [facility] Anatomic Site aPOC Pulm Artery [facility] Blood 09/15/2024 1:23 PM CDT 09/15/2024 1:23 PM CDT Vince Jacome MD LAB POCT ORDERABLES - DEVIC E Final Result Performing Organization Address [facility] Co de Phone Number [facility] Department [place] [address] * POCT oxyhemoglobin (09/15/2024 1:23 PM CDT) HOSPITAL NURSING ASSISTANT Oxyhemoglobin 88.2 >=65.0 % HOSPITAL NURSING ASSISTANT Hemoglobin 13.3 13.0 - 17.5 g/dL [facility] HOSPITAL NURSING ASSISTANT O2 content 16.3 15.0 - 22.0 Vol % [facility] Anatomic Site aPOC Pulm Artery [facility] Blood 09/15/2024 1:23 PM CDT 09/15/2024 1:23 PM CDT Vince Jacome MD LAB POCT ORDERABLES - DEVIC E Final Result Performing Organization Address [facility]/ZIP Co de Phone Number [facility] [employer] [place] [address] * (ABNORMAL) POCT Activated clotting time, low range (09/15/2024 1:18 PM CDT) [facility] ACT 287(H) 123 - 168 sec POC Performer [id number] [facility] POC Device Number [id number] [facility] Blood 09/15/2024 1:18 PM CDT 09/15/2024 1:18 PM CDT Vince Jacome MD LAB POCT ORDERABLES - DEVIC E Final Result Performing Organization Address [facility]/ZIP Co de Phone Number [facility] [employer] [place] [address] * POCT oxyhemoglobin (09/15/2024 1:17 PM CDT) Pathologist [facility] HOSPITAL NURSING ASSISTANT Oxyhemoglobin 88.0 >=65.0 % HOSPITAL NURSING ASSISTANT Hemoglobin 13.5 13.0 - 17.5 g/dL [facility] HOSPITAL NURSING ASSISTANT O2 content 16.5 15.0 - 22.0 Vol % [facility] Anatomic Site aPOC Pulmonary Vein [facility] Blood 09/15/2024 1:17 PM CDT 09/15/2024 1:17 PM CDT Vince Jacome MD LAB POCT ORDERABLES - DEVIC E Final Result Performing Organization Address [facility] [place] [address] * POCT oxyhemoglobin (09/15/2024 1:16 PM CDT) HOSPITAL NURSING ASSISTANT Oxyhemoglobin 89.9 >=65.0 % HOSPITAL NURSING ASSISTANT Hemoglobin 13.3 13.0 - 17.5 g/dL [facility] HOSPITAL NURSING ASSISTANT O2 content 16.7 15.0 - 22.0 Vol % [facility] Anatomic Site aPOC Pulmonary Vein [facility] Blood 09/15/2024 1:16 PM CDT 09/15/2024 1:16 PM CDT Vince Jacome MD LAB POCT ORDERABLES - DEVIC E Final Result Performing Organization Address [facility] Co de Phone Number [facility] [place] [address] * (ABNORMAL) POCT oxyhemoglobin (09/15/2024 1:15 PM CDT) HOSPITAL NURSING ASSISTANT Oxyhemoglobin 81.5 >=65.0 % HOSPITAL NURSING ASSISTANT Hemoglobin 13.2 13.0 - 17.5 g/dL [facility] HOSPITAL NURSING ASSISTANT O2 content 14.9(L) 15.0 - 22.0 Vol % [facility] Anatomic Site aPOC Ventricle right [facility] Blood 09/15/2024 1:15 PM CDT 09/15/2024 1:15 PM CDT Vince Jacome MD LAB POCT ORDERABLES - DEVIC E Final Result Performing Organization Address [facility] Co de Phone Number [facility] [employer] [address] * POCT oxyhemoglobin (09/15/2024 1:15 PM CDT) Pathologist [facility] HOSPITAL NURSING ASSISTANT Oxyhemoglobin 81.9 >=65.0 % HOSPITAL NURSING ASSISTANT Hemoglobin 13.3 13.0 - 17.5 g/dL [facility] HOSPITAL NURSING ASSISTANT O2 content 15.1 15.0 - 22.0 Vol % [facility] Anatomic Site aPOC Ventricle right [facility] Blood 09/15/2024 1:15 PM CDT 09/15/2024 1:15 PM CDT Vince Jacome MD LAB POCT ORDERABLES - DEVIC E Final Result Performing Organization Address City/[facility] Co de Phone Number [facility] [employer] [address] * (ABNORMAL) POCT Activated clotting time, low range (09/15/2024 1:14 PM CDT) [facility] ACT 232(H) 123 - 168 sec POC Performer [id number] [facility] POC Device Number [id number] [facility] Blood 09/15/2024 1:14 PM CDT 09/15/2024 1:14 PM CDT Vince Jacome MD LAB POCT ORDERABLES - DEVIC E Final Result Performing Organization Address [facility] Co de Phone Number [facility] [employer] [address] * (ABNORMAL) POCT oxyhemoglobin (09/15/2024 1:13 PM CDT) [facility] HOSPITAL NURSING ASSISTANT Oxyhemoglobin 67.1 >=65.0 % HOSPITAL NURSING ASSISTANT Hemoglobin 12.6(L) 13.0 - 17.5 g/dL [facility] HOSPITAL NURSING ASSISTANT O2 content 11.8(L) 15.0 - 22.0 Vol % [facility] Anatomic Site aPOC Sup Vena Cava [facility] Blood 09/15/2024 1:13 PM CDT 09/15/2024 1:13 PM CDT Vince Jacome MD LAB POCT ORDERABLES - DEVIC E Final Result Performing Organization Address City/[facility]/[place] [address] * (ABNORMAL) POCT oxyhemoglobin (09/15/2024 1:11 PM CDT) HOSPITAL NURSING ASSISTANT Oxyhemoglobin 64.7(L) >=65.0 % HOSPITAL NURSING ASSISTANT Hemoglobin 12.9(L) 13.0 - 17.5 g/dL [facility] HOSPITAL NURSING ASSISTANT O2 content 11.6(L) 15.0 - 22.0 Vol % [facility] Anatomic Site aPOC Sup Vena Cava [facility] Blood 09/15/2024 1:11 PM CDT 09/15/2024 1:11 PM CDT Vince Jacome MD LAB POCT ORDERABLES - DEVIC E Final Result Performing Organization Address [facility] [place] [address] * (ABNORMAL) POCT oxyhemoglobin (09/15/2024 1:10 PM CDT) HOSPITAL NURSING ASSISTANT Oxyhemoglobin 75.8 >=65.0 % HOSPITAL NURSING ASSISTANT Hemoglobin 13.0 13.0 - 17.5 g/dL [facility] HOSPITAL NURSING ASSISTANT O2 content 13.7(L) 15.0 - 22.0 Vol % [facility] Anatomic Site aPOC Atrium Right [facility] Blood 09/15/2024 1:10 PM CDT 09/15/2024 1:10 PM CDT Vince Jacome MD LAB POCT ORDERABLES - DEVIC E Final Result Performing Organization Address City/[facility] Co de Phone Number [facility] [place] [address] * (ABNORMAL) POCT oxyhemoglobin (09/15/2024 1:09 PM CDT) HOSPITAL NURSING ASSISTANT Oxyhemoglobin 79.4 >=65.0 % HOSPITAL NURSING ASSISTANT Hemoglobin 13.4 13.0 - 17.5 g/dL [facility] HOSPITAL NURSING ASSISTANT O2 content 14.8(L) 15.0 - 22.0 Vol % [facility] Anatomic Site aPOC Atrium Right [facility] Blood 09/15/2024 1:09 PM CDT 09/15/2024 1:09 PM CDT Vince Jacome MD LAB POCT ORDERABLES - DEVIC E Final Result Performing Organization Address City/[facility]/ZIP Co de Phone Number [facility] [place] [address] * (ABNORMAL) POCT oxyhemoglobin (09/15/2024 1:08 PM CDT) HOSPITAL NURSING ASSISTANT Oxyhemoglobin 64.2(L) >=65.0 % HOSPITAL NURSING ASSISTANT Hemoglobin 13.2 13.0 - 17.5 g/dL [facility] HOSPITAL NURSING ASSISTANT O2 content 11.8(L) 15.0 - 22.0 Vol % [facility] Anatomic Site aPOC Inf Vena Cava [facility] Blood 09/15/2024 1:08 PM CDT 09/15/2024 1:08 PM CDT Vince Jacome MD LAB POCT ORDERABLES - DEVIC E Final Result [facility] [employer] [address] * (ABNORMAL) POCT oxyhemoglobin (09/15/2024 1:07 PM CDT) HOSPITAL NURSING ASSISTANT Oxyhemoglobin 67.0 >=65.0 % HOSPITAL NURSING ASSISTANT Hemoglobin 13.3 13.0 - 17.5 g/dL [facility] HOSPITAL NURSING ASSISTANT O2 content 12.4(L) 15.0 - 22.0 Vol % [facility] Anatomic Site aPOC Inf Vena Cava [facility] Blood 09/15/2024 1:07 PM CDT 09/15/2024 1:07 PM CDT us Vince Jacome MD LAB POCT ORDERABLES - DEVIC E Final Result Performing Organization Address City/[facility] Co de Phone Number [facility] [place] [address] * eGFR (09/14/2024 8:25 PM CDT) eGFR [...] ORDERABLES Final R esult Performing Organization Address City/[facility]/ZIP Co de Phone Number [facility] Department [place] [address] * Differential, auto (09/14/2024 8:25 PM CDT) Neutrophil abs 4.05 1.50 - 6.50 K/cumm Imm gran abs 0.02 0.00 - 0.10 K/cumm [facility] Lymphocyte abs 2.34 0.80 - 3.30 K/cumm [facility] Monocyte abs 0.37 0.20 - 0.80 K/cumm [facility] Eosinophil abs 0.02 0.00 - 0.50 K/cumm [facility] Basophil abs 0.06 0.00 - 0.10 K/cumm [facility] Neutrophil pct 59.0 % [facility] Comment: Interpretive Data Percent cell count reference ranges are not reported, since discordance with absolute values may lead to misinterpretation of CBC data. Current Interpretive Data was last revised on 2017. Imm gran pct 0.3 % [facility] Comment: Interpretive Data Percent cell count reference ranges are not reported, since discordance with absolute values may lead to misinterpretation of CBC data. Current Interpretive Data was last revised on 2017. Lymphocyte pct 34.1 % [facility] Comment: Interpretive Data Percent cell count reference ranges are not reported, since discordance with absolute values may lead to misinterpretation of CBC data. Current Interpretive Data was last revised on 2017. Monocyte pct 5.4 % [facility] Comment: Interpretive Data Percent cell count reference ranges are not reported, since discordance with absolute values may lead to misinterpretation of CBC data. Current Interpretive Data was last revised on 2017. Eosinophil pct 0.3 % [facility] Comment: Interpretive Data Percent cell count reference ranges are not reported, since discordance with absolute values may lead to misinterpretation of CBC data. Current Interpretive Data was last revised on 2017. Basophil pct 0.9 % [facility] Comment: Interpretive Data Percent cell count reference ranges are not reported, since discordance with absolute values may lead to misinterpretation of CBC data. Current Interpretive Data was last revised on 2017. Blood 09/14/2024 8:25 PM CDT 09/14/2024 8:44 PM CDT Christine Rossi MD LAB BLOOD ORDERABLES Final R esult Performing Organization Address City/State/[facility] Co de Phone Number [facility] Department [place] [address] * (ABNORMAL) CBC with auto differential (09/14/2024 8:25 PM CDT) Pathologist [facility] WBC 6.86 3.80 - 9.90 K/cumm Hgb 15.7 13.0 - 17.5 g/dL [facility] Hct 44.7 38.9 - 50.3 % [facility] Plt 196 150 - 400 K/cumm [facility] MPV 8.5(L) 9.1 - 12.3 fL [facility] RBC 4.88 4.30 - 5.80 M/cumm [facility] MCV 91.6 81.3 - 96.4 fL [facility] MCH 32.2 27.1 - 33.3 pg [facility] MCHC 35.1 32.3 - 35.7 g/dL [facility] RDW CV 13.5 11.1 - 14.9 % [facility] RDW SD 45.4 35.7 - 48.1 fL [facility] NRBC abs 0.00 0.00 - 0.01 K/cumm [facility] Blood 09/14/2024 8:25 PM CDT 09/14/2024 8:44 PM CDT us Christine Rossi MD LAB BLOOD ORDERABLES Final R esult Performing Organization Address [facility] Co de Phone Number [facility] Department of [employer] [address] * Magnesium (09/14/2024 8:25 PM CDT) Pathologist [facility] Magnesium 2.4 1.4 - 2.5 mg/dL Blood 09/14/2024 8:25 PM CDT 09/14/2024 8:44 PM CDT Christine Rossi MD LAB BLOOD ORDERABLES Final R esult Performing Organization Address City/[facility] Co de Phone Number [facility] Department [place] [address] * (ABNORMAL) Comprehensive metabolic panel (09/14/2024 8:25 PM CDT) Sodium 141 135 - 145 mmol/L Potassium, pl 4.2 3.3 - 4.9 mmol/L [facility] Chloride 104 97 - 110 mmol/L [facility] CO2 28 22 - 32 mmol/L [facility] Anion gap 9 2 - 15 mmol/L [facility] BUN 12 6 - 25 mg/dL [facility] Creatinine 0.97 0.80 - 1.30 mg/dL [facility] Glucose 98 70 - 199 mg/dL [facility] Comment: Interpretive Data Fasting glucose >/= [...] 2022. Calcium 9.5 8.5 - 10.3 mg/dL [facility] Bilirubin, total 1.3(H) 0.1 - 1.2 mg/dL [facility] Protein, pl 6.9 6.5 - 8.5 g/dL [facility] Albumin 4.4 3.5 - 5.0 g/dL [facility] Alk phos 56 40 - 130 Units/L [facility] ALT 51 7 - 55 Units/L [facility] AST 24 10 - 50 Units/L [facility] Blood 09/14/2024 8:25 PM CDT 09/14/2024 8:44 PM CDT us Christine Rossi MD LAB BLOOD ORDERABLES Final R esult Performing Organization Address City/[facility]/ZIP Co de Phone Number [facility] [place] [address] * POCT glucose (09/14/2024 4:32 PM CDT) Glucose, POC 113 70 - 199 mg/dL Blood 09/14/2024 4:32 PM CDT 09/14/2024 4:32 PM CDT us Christine Rossi MD LAB POCT ORDERABLES - DEVICE Final Result Performing Organization Address City/State/[facility] Co de Phone Number [facility] [place] [address] * POCT glucose (09/13/2024 11:23 AM CDT) [facility] Glucose, POC 78 70 - 199 mg/dL Blood 09/13/2024 11:2 3 AM CDT 09/13/2024 11:23 AM CDT us Christine Rossi MD LAB POCT ORDERABLES - DEVICE Final Result Performing Organization Address City/[facility] Co de Phone Number [facility] [employer] [address] * eGFR (09/12/2024 11:09 PM CDT) [facility] eGFR >90 >=60 mL/min/1. 73 m2 Comment: [...] MD LAB BLOOD ORDERABLES Final R esult [facility] Department [place] [address] * Differential, auto (09/12/2024 11:09 PM CDT) Neutrophil abs 3.73 1.50 - 6.50 K/cumm Imm gran abs 0.03 0.00 - 0.10 K/cumm [facility] Lymphocyte abs 2.85 0.80 - 3.30 K/cumm [facility] Monocyte abs 0.38 0.20 - 0.80 K/cumm [facility] Eosinophil abs 0.05 0.00 - 0.50 K/cumm [facility] Basophil abs 0.06 0.00 - 0.10 K/cumm [facility] Neutrophil pct 52.6 % [facility] Comment: Interpretive Data Percent cell count reference ranges are not reported, since discordance with absolute values may lead to misinterpretation of CBC data. Current Interpretive Data was last revised on 2017. Imm gran pct 0.4 % [facility] Comment: Interpretive Data Percent cell count reference ranges are not reported, since discordance with absolute values may lead to misinterpretation of CBC data. Current Interpretive Data was last revised on 2017. Lymphocyte pct 40.1 % [facility] Comment: Interpretive Data Percent cell count reference ranges are not reported, since discordance with absolute values may lead to misinterpretation of CBC data. Current Interpretive Data was last revised on 2017. Monocyte pct 5.4 % [facility] Comment: Interpretive Data Percent cell count reference ranges are not reported, since discordance with absolute values may lead to misinterpretation of CBC data. Current Interpretive Data was last revised on 2017. Eosinophil pct 0.7 % [facility] Comment: Interpretive Data Percent cell count reference ranges are not reported, since discordance with absolute values may lead to misinterpretation of CBC data. Current Interpretive Data was last revised on 2017. Basophil pct 0.8 % [facility] Comment: Interpretive Data Percent cell count reference ranges are not reported, since discordance with absolute values may lead to misinterpretation of CBC data. Current Interpretive Data was last revised on 2017. Blood 09/12/2024 11:0 9 PM CDT 09/13/2024 12:27 AM CDT us Christine Rossi MD LAB BLOOD ORDERABLES Final R esult [facility] Department [place] [address] * CBC with auto differential (09/12/2024 11:09 PM CDT) WBC 7.10 3.80 - 9.90 K/cumm Hgb 14.7 13.0 - 17.5 g/dL [facility] Hct 42.0 38.9 - 50.3 % [facility] Plt 166 150 - 400 K/cumm [facility] MPV 9.1 9.1 - 12.3 fL [facility] RBC 4.57 4.30 - 5.80 M/cumm [facility] MCV 91.9 81.3 - 96.4 fL [facility] MCH 32.2 27.1 - 33.3 pg [facility] MCHC 35.0 32.3 - 35.7 g/dL [facility] RDW CV 13.6 11.1 - 14.9 % [facility] RDW SD 46.3 35.7 - 48.1 fL [facility] NRBC abs 0.00 0.00 - 0.01 K/cumm [facility] Blood 09/12/2024 11:0 9 PM CDT 09/13/2024 12:27 AM CDT us Christine Rossi MD LAB BLOOD ORDERABLES Final R esult [facility] Department [place] [address] * (ABNORMAL) Comprehensive metabolic panel (09/12/2024 11:09 PM CDT) Sodium 142 135 - 145 mmol/L Potassium, pl 4.4 3.3 - 4.9 mmol/L [facility] Comment:Hemolyzed; Potassium value may be falsely elevated by as much as 0.3-0.5 mmol/L. Suggest redraw and reanalysis. Chloride 107 97 - 110 mmol/L [facility] CO2 27 22 - 32 mmol/L [facility] Anion gap 8 2 - 15 mmol/L [facility] BUN 13 6 - 25 mg/dL [facility] Creatinine 0.94 0.80 - 1.30 mg/dL [facility] Glucose 91 70 - 199 mg/dL [facility] Comment: Interpretive Data Fasting glucose >/= [...] 2022. Calcium 9.2 8.5 - 10.3 mg/dL [facility] Bilirubin, total 0.9 0.1 - 1.2 mg/dL [facility] Protein, pl 6.2(L) 6.5 - 8.5 g/dL [facility] Albumin 3.9 3.5 - 5.0 g/dL [facility] Alk phos 51 40 - 130 Units/L [facility] ALT 48 7 - 55 Units/L [facility] AST 34 10 - 50 Units/L [facility] Comment:Hemolyzed; result ma y be falsely elevated Blood 09/12/2024 11:0 9 PM CDT 09/13/2024 12:25 AM CDT us Christine Rossi MD LAB BLOOD ORDERABLES Final R esult Performing Organization Address [facility] Co de Phone Number [facility] [employer] [address] * POCT glucose (09/12/2024 7:27 AM CDT) Glucose, POC 100 70 - 199 mg/dL Blood 09/12/2024 7:27 AM CDT 09/12/2024 7:27 AM CDT us Christine Rossi MD LAB POCT ORDERABLES - DEVICE Final Result Performing Organization Address City/[facility] Co de Phone Number [facility] [employer] [address] * POCT glucose (09/12/2024 12:18 AM CDT) [facility] Glucose, POC 108 70 - 199 mg/dL Blood 09/12/2024 12:1 8 AM CDT 09/12/2024 12:18 AM CDT us Christine Rossi MD LAB POCT ORDERABLES - DEVICE Final Result Performing Organization Address City/[facility] Co de Phone Number [facility] [employer] [address] * eGFR (2024 10:15 PM CDT) Pathologist [facility] eGFR 90 >=60 mL/min/1. 73 m2 Comment: [...] MD LAB BLOOD ORDERABLES Final R esult [facility] Department [place] [address] * Differential, auto (2024 10:15 PM CDT) Neutrophil abs 3.58 1.50 - 6.50 K/cumm Imm gran abs 0.02 0.00 - 0.10 K/cumm [facility] Lymphocyte abs 2.33 0.80 - 3.30 K/cumm [facility] Monocyte abs 0.46 0.20 - 0.80 K/cumm [facility] Eosinophil abs 0.03 0.00 - 0.50 K/cumm [facility] Basophil abs 0.06 0.00 - 0.10 K/cumm [facility] Neutrophil pct 55.2 % [facility] Comment: Interpretive Data Percent cell count reference ranges are not reported, since discordance with absolute values may lead to misinterpretation of CBC data. Current Interpretive Data was last revised on 2017. Imm gran pct 0.3 % [facility] Comment: Interpretive Data Percent cell count reference ranges are not reported, since discordance with absolute values may lead to misinterpretation of CBC data. Current Interpretive Data was last revised on 2017. Lymphocyte pct 36.0 % [facility] Comment: Interpretive Data Percent cell count reference ranges are not reported, since discordance with absolute values may lead to misinterpretation of CBC data. Current Interpretive Data was last revised on 2017. Monocyte pct 7.1 % [facility] Comment: Interpretive Data Percent cell count reference ranges are not reported, since discordance with absolute values may lead to misinterpretation of CBC data. Current Interpretive Data was last revised on 2017. Eosinophil pct 0.5 % [facility] Comment: Interpretive Data Percent cell count reference ranges are not reported, since discordance with absolute values may lead to misinterpretation of CBC data. Current Interpretive Data was last revised on 2017. Basophil pct 0.9 % [facility] Comment: Interpretive Data Percent cell count reference ranges are not reported, since discordance with absolute values may lead to misinterpretation of CBC data. Current Interpretive Data was last revised on 2017. Blood 2024 10:1 5 PM CDT 2024 11:41 PM CDT us Christine Rossi MD LAB BLOOD ORDERABLES Final R esult [facility] Department [place] [address] * (ABNORMAL) CBC with auto differential (2024 10:15 PM CDT) WBC 6.48 3.80 - 9.90 K/cumm Hgb 13.6 13.0 - 17.5 g/dL [facility] Hct 39.5 38.9 - 50.3 % [facility] Plt 184 150 - 400 K/cumm [facility] MPV 9.4 9.1 - 12.3 fL [facility] RBC 4.29(L) 4.30 - 5.80 M/cumm [facility] MCV 92.1 81.3 - 96.4 fL [facility] MCH 31.7 27.1 - 33.3 pg [facility] MCHC 34.4 32.3 - 35.7 g/dL [facility] RDW CV 13.7 11.1 - 14.9 % [facility] RDW SD 46.2 35.7 - 48.1 fL [facility] NRBC abs 0.00 0.00 - 0.01 K/cumm [facility] Blood 2024 10:1 5 PM CDT 2024 11:41 PM CDT us Christine Rossi MD LAB BLOOD ORDERABLES Final R esult [facility] Department [place] [address] * (ABNORMAL) Comprehensive metabolic panel (2024 10:15 PM CDT) Sodium 146(H) 135 - 145 mmol/L Potassium, pl 3.9 3.3 - 4.9 mmol/L [facility] Chloride 108 97 - 110 mmol/L [facility] CO2 28 22 - 32 mmol/L [facility] Anion gap 10 2 - 15 mmol/L [facility] BUN 13 6 - 25 mg/dL [facility] Creatinine 0.96 0.80 - 1.30 mg/dL [facility] Glucose 58(L) 70 - 199 mg/dL [facility] Comment: Interpretive Data Fasting glucose >/= [...] 2022. Calcium 9.3 8.5 - 10.3 mg/dL [facility] Bilirubin, total 0.7 0.1 - 1.2 mg/dL [facility] Protein, pl 6.0(L) 6.5 - 8.5 g/dL [facility] Albumin 3.7 3.5 - 5.0 g/dL [facility] Alk phos 49 40 - 130 Units/L [facility] ALT 55 7 - 55 Units/L [facility] AST 37 10 - 50 Units/L [facility] Blood 2024 10:1 5 PM CDT 2024 11:40 PM CDT us Christine Rossi MD LAB BLOOD ORDERABLES Final R esult [facility] Department [place] [address] * eGFR (09/10/2024 9:17 PM CDT) eGFR [...] MD LAB BLOOD ORDERABLES Final R esult [facility] Department [place] [address] * Differential, auto (09/10/2024 9:17 PM CDT) Neutrophil abs 4.30 1.50 - 6.50 K/cumm Imm gran abs 0.03 0.00 - 0.10 K/cumm [facility] Lymphocyte abs 2.30 0.80 - 3.30 K/cumm [facility] Monocyte abs 0.46 0.20 - 0.80 K/cumm [facility] Eosinophil abs 0.04 0.00 - 0.50 K/cumm [facility] Basophil abs 0.08 0.00 - 0.10 K/cumm [facility] Neutrophil pct 59.6 % [facility] Comment: Interpretive Data Percent cell count reference ranges are not reported, since discordance with absolute values may lead to misinterpretation of CBC data. Current Interpretive Data was last revised on 2017. Imm gran pct 0.4 % [facility] Comment: Interpretive Data Percent cell count reference ranges are not reported, since discordance with absolute values may lead to misinterpretation of CBC data. Current Interpretive Data was last revised on 2017. Lymphocyte pct 31.9 % [facility] Comment: Interpretive Data Percent cell count reference ranges are not reported, since discordance with absolute values may lead to misinterpretation of CBC data. Current Interpretive Data was last revised on 2017. Monocyte pct 6.4 % [facility] Comment: Interpretive Data Percent cell count reference ranges are not reported, since discordance with absolute values may lead to misinterpretation of CBC data. Current Interpretive Data was last revised on 2017. Eosinophil pct 0.6 % [facility] Comment: Interpretive Data Percent cell count reference ranges are not reported, since discordance with absolute values may lead to misinterpretation of CBC data. Current Interpretive Data was last revised on 2017. Basophil pct 1.1 % [facility] Comment: Interpretive Data Percent cell count reference ranges are not reported, since discordance with absolute values may lead to misinterpretation of CBC data. Current Interpretive Data was last revised on 2017. Blood 09/10/2024 9:17 PM CDT 09/10/2024 9:49 PM CDT us Christine Rossi MD LAB BLOOD ORDERABLES Final R esult Performing Organization Address City/[facility]/ZIP Co de Phone Number [facility] Department [place] [address] * (ABNORMAL) CBC with auto differential (09/10/2024 9:17 PM CDT) Pathologist [facility] WBC 7.21 3.80 - 9.90 K/cumm Hgb 12.8(L) 13.0 - 17.5 g/dL [facility] Hct 35.5(L) 38.9 - 50.3 % [facility] Plt 158 150 - 400 K/cumm [facility] MPV 9.2 9.1 - 12.3 fL [facility] RBC 3.90(L) 4.30 - 5.80 M/cumm [facility] MCV 91.0 81.3 - 96.4 fL [facility] MCH 32.8 27.1 - 33.3 pg [facility] MCHC 36.1(H) 32.3 - 35.7 g/dL [facility] RDW CV 13.6 11.1 - 14.9 % [facility] RDW SD 45.1 35.7 - 48.1 fL [facility] NRBC abs 0.00 0.00 - 0.01 K/cumm [facility] Blood 09/10/2024 9:17 PM CDT 09/10/2024 9:49 PM CDT us Christine Rossi MD LAB BLOOD ORDERABLES Final R esult [facility] Department [place] [address] * (ABNORMAL) Comprehensive metabolic panel (09/10/2024 9:17 PM CDT) Pathologist [facility] [facility] Sodium 139 135 - 145 mmol/L Potassium, pl 4.2 3.3 - 4.9 mmol/L [facility] Chloride 104 97 - 110 mmol/L [facility] CO2 26 22 - 32 mmol/L [facility] Anion gap 9 2 - 15 mmol/L [facility] BUN 13 6 - 25 mg/dL [facility] Creatinine 0.97 0.80 - 1.30 mg/dL [facility] Glucose 101 70 - 199 mg/dL [facility] Comment: Interpretive Data Fasting glucose >/= [...] 2022. Calcium 8.9 8.5 - 10.3 mg/dL [facility] Bilirubin, total 0.6 0.1 - 1.2 mg/dL [facility] Protein, pl 6.1(L) 6.5 - 8.5 g/dL [facility] Albumin 3.7 3.5 - 5.0 g/dL [facility] Alk phos 48 40 - 130 Units/L [facility] ALT 46 7 - 55 Units/L [facility] AST 44 10 - 50 Units/L [facility] Blood 09/10/2024 9:17 PM CDT 09/10/2024 9:47 PM CDT us Christine Rossi MD LAB BLOOD ORDERABLES Final R esult [facility] [place] [address] * eGFR (09/09/2024 8:51 PM CDT) eGFR [...] MD LAB BLOOD ORDERABLES Final R esult [facility] Department [place] [address] * Differential, auto (09/09/2024 8:51 PM CDT) Pathologist [facility] Neutrophil abs 4.72 1.50 - 6.50 K/cumm Imm gran abs 0.02 0.00 - 0.10 K/cumm [facility] Lymphocyte abs 2.31 0.80 - 3.30 K/cumm [facility] Monocyte abs 0.48 0.20 - 0.80 K/cumm [facility] Eosinophil abs 0.02 0.00 - 0.50 K/cumm [facility] Basophil abs 0.07 0.00 - 0.10 K/cumm [facility] Neutrophil pct 61.9 % [facility] Comment: Interpretive Data Percent cell count reference ranges are not reported, since discordance with absolute values may lead to misinterpretation of CBC data. Current Interpretive Data was last revised on 2017. Imm gran pct 0.3 % [facility] Comment: Interpretive Data Percent cell count reference ranges are not reported, since discordance with absolute values may lead to misinterpretation of CBC data. Current Interpretive Data was last revised on 2017. Lymphocyte pct 30.3 % [facility] Comment: Interpretive Data Percent cell count reference ranges are not reported, since discordance with absolute values may lead to misinterpretation of CBC data. Current Interpretive Data was last revised on 2017. Monocyte pct 6.3 % [facility] Comment: Interpretive Data Percent cell count reference ranges are not reported, since discordance with absolute values may lead to misinterpretation of CBC data. Current Interpretive Data was last revised on 2017. Eosinophil pct 0.3 % [facility] Comment: Interpretive Data Percent cell count reference ranges are not reported, since discordance with absolute values may lead to misinterpretation of CBC data. Current Interpretive Data was last revised on 2017. Basophil pct 0.9 % [facility] Comment: Interpretive Data Percent cell count reference ranges are not reported, since discordance with absolute values may lead to misinterpretation of CBC data. Current Interpretive Data was last revised on 2017. Blood 09/09/2024 8:51 PM CDT 09/09/2024 9:27 PM CDT us Christine Rossi MD LAB BLOOD ORDERABLES Final R esult [facility] Department [place] [address] * (ABNORMAL) CBC with auto differential (09/09/2024 8:51 PM CDT) WBC 7.62 3.80 - 9.90 K/cumm Hgb 15.4 13.0 - 17.5 g/dL [facility] Hct 43.9 38.9 - 50.3 % [facility] Plt 201 150 - 400 K/cumm [facility] MPV 8.9(L) 9.1 - 12.3 fL [facility] RBC 4.75 4.30 - 5.80 M/cumm [facility] MCV 92.4 81.3 - 96.4 fL [facility] MCH 32.4 27.1 - 33.3 pg [facility] MCHC 35.1 32.3 - 35.7 g/dL [facility] RDW CV 13.6 11.1 - 14.9 % [facility] RDW SD 46.1 35.7 - 48.1 fL [facility] NRBC abs 0.00 0.00 - 0.01 K/cumm [facility] Blood 09/09/2024 8:51 PM CDT 09/09/2024 9:27 PM CDT us Christine Rossi MD LAB BLOOD ORDERABLES Final R esult [facility] Department [place] [address] * Comprehensive metabolic panel (09/09/2024 8:51 PM CDT) Sodium 141 135 - 145 mmol/L Potassium, pl 3.7 3.3 - 4.9 mmol/L [facility] Chloride 104 97 - 110 mmol/L [facility] CO2 25 22 - 32 mmol/L [facility] Anion gap 12 2 - 15 mmol/L [facility] BUN 10 6 - 25 mg/dL [facility] Creatinine 0.96 0.80 - 1.30 mg/dL [facility] Glucose 90 70 - 199 mg/dL [facility] Comment: Interpretive Data Fasting glucose >/= [...] 2022. Calcium 9.5 8.5 - 10.3 mg/dL [facility] Bilirubin, total 1.2 0.1 - 1.2 mg/dL [facility] Protein, pl 7.4 6.5 - 8.5 g/dL [facility] Albumin 4.4 3.5 - 5.0 g/dL [facility] Alk phos 54 40 - 130 Units/L [facility] ALT 33 7 - 55 Units/L [facility] AST 36 10 - 50 Units/L [facility] Blood 09/09/2024 8:51 PM CDT 09/09/2024 9:27 PM CDT us Christine Rossi MD LAB BLOOD ORDERABLES Final R esult [facility] Department [place] [address] * XR Abdomen Ap 1 Vw (09/09/2024 [...] MD LAB BLOOD ORDERABLES Final R esult [facility] Department [place] [address] * Differential, auto (09/08/2024 9:37 PM CDT) Neutrophil abs 3.89 1.50 - 6.50 K/cumm Imm gran abs 0.02 0.00 - 0.10 K/cumm [facility] Lymphocyte abs 2.37 0.80 - 3.30 K/cumm [facility] Monocyte abs 0.37 0.20 - 0.80 K/cumm [facility] Eosinophil abs 0.02 0.00 - 0.50 K/cumm [facility] Basophil abs 0.05 0.00 - 0.10 K/cumm [facility] Neutrophil pct 57.9 % [facility] Comment: Interpretive Data Percent cell count reference ranges are not reported, since discordance with absolute values may lead to misinterpretation of CBC data. Current Interpretive Data was last revised on 2017. Imm gran pct 0.3 % [facility] Comment: Interpretive Data Percent cell count reference ranges are not reported, since discordance with absolute values may lead to misinterpretation of CBC data. Current Interpretive Data was last revised on 2017. Lymphocyte pct 35.3 % [facility] Comment: Interpretive Data Percent cell count reference ranges are not reported, since discordance with absolute values may lead to misinterpretation of CBC data. Current Interpretive Data was last revised on 2017. Monocyte pct 5.5 % [facility] Comment: Interpretive Data Percent cell count reference ranges are not reported, since discordance with absolute values may lead to misinterpretation of CBC data. Current Interpretive Data was last revised on 2017. Eosinophil pct 0.3 % [facility] Comment: Interpretive Data Percent cell count reference ranges are not reported, since discordance with absolute values may lead to misinterpretation of CBC data. Current Interpretive Data was last revised on 2017. Basophil pct 0.7 % [facility] Comment: Interpretive Data Percent cell count reference ranges are not reported, since discordance with absolute values may lead to misinterpretation of CBC data. Current Interpretive Data was last revised on 2017. Blood 09/08/2024 9:37 PM CDT 09/08/2024 10:42 PM CDT us Christine Rossi MD LAB BLOOD ORDERABLES Final R esult [facility] Department [place] [address] * (ABNORMAL) CBC with auto differential (09/08/2024 9:37 PM CDT) WBC 6.72 3.80 - 9.90 K/cumm Hgb 14.8 13.0 - 17.5 g/dL [facility] Hct 41.0 38.9 - 50.3 % [facility] Plt 175 150 - 400 K/cumm [facility] MPV 9.1 9.1 - 12.3 fL [facility] RBC 4.53 4.30 - 5.80 M/cumm [facility] MCV 90.5 81.3 - 96.4 fL [facility] MCH 32.7 27.1 - 33.3 pg [facility] MCHC 36.1(H) 32.3 - 35.7 g/dL [facility] RDW CV 13.2 11.1 - 14.9 % [facility] RDW SD 43.4 35.7 - 48.1 fL [facility] NRBC abs 0.00 0.00 - 0.01 K/cumm [facility] Blood 09/08/2024 9:37 PM CDT 09/08/2024 10:42 PM CDT us Christine Rossi MD LAB BLOOD ORDERABLES Final R esult Performing Organization Address City/[facility]/ZIP Co de Phone Number [facility] Department [place] [address] * (ABNORMAL) Comprehensive metabolic panel (09/08/2024 9:37 PM CDT) Sodium 139 135 - 145 mmol/L Potassium, pl 4.0 3.3 - 4.9 mmol/L [facility] Chloride 104 97 - 110 mmol/L [facility] CO2 25 22 - 32 mmol/L [facility] Anion gap 10 2 - 15 mmol/L [facility] BUN 12 6 - 25 mg/dL [facility] Creatinine 0.97 0.80 - 1.30 mg/dL [facility] Glucose 88 70 - 199 mg/dL [facility] Comment: Interpretive Data Fasting glucose >/= [...] 2022. Calcium 9.5 8.5 - 10.3 mg/dL [facility] Bilirubin, total 1.9(H) 0.1 - 1.2 mg/dL [facility] Protein, pl 6.8 6.5 - 8.5 g/dL [facility] Albumin 4.4 3.5 - 5.0 g/dL [facility] Alk phos 50 40 - 130 Units/L [facility] ALT 24 7 - 55 Units/L [facility] AST 22 10 - 50 Units/L [facility] Blood 09/08/2024 9:37 PM CDT 09/08/2024 10:41 PM CDT us Christine Rossi MD LAB BLOOD ORDERABLES [facility] Department [place] [address] * TRANSTHORACIC ECHO (TTE) COMPLETE W DOPPLER/CF W CONTRAST (09/08/2024 10:20 AM CDT) EF Mod BP 66 % CONS SCIMAGE Anatomical Region Laterality Modality Ultrasound 09/08/2024 8:44 AM CDT Narrative 09/08/2024 11:28 AM CDT [facility] [place] [address] Transthoracic Echocardiographic Report ADDENDUM Patient Name: MIGUELITO LOPES : 1965 (58y 11m) Gender: M Study Date: 09/08/2024 08:44:44 AM Ht(Inch): 65 Wt(Lb): 121.03 BSA: 1.59 Health Care Assistant: Javi Marte RDCS Location: [id number] Order Provider: CHRISTINE ROSSI Heart Rate: 83 [...] Procedure Note Binu Urban MD - 09/08/2024 [facility] [place] [address] Transthoracic Echocardiographic Report ADDENDUM Patient Name: MIGUELITO LOPES : 1965 (58y 11m) Gender: M Study Date: 09/08/2024 08:44:44 AM Ht(Inch): 65 Wt(Lb): 121.03 BSA: 1.59 Health Care Assistant: Javi Marte RDCS Location: [id number] Order Provider:CHRISTINE ROSSI Heart Rate: 83 BMI: [...] - 1.5 ] RWT 0.49 MV Decel Gtmw521.89 msec [ 104.00 - 258.00 ] EDV [...] cm [ 1.71 - 5.00 ] RA Ycqxoz017.51 ml RA Volume Akbjm066.47 ml/m2 AoR Diam 2D 3.17 cm [ [...] ORDERABLES Final R esult Performing Organization Address City/[facility]/ZIP Co de Phone Number [facility] [employer] [address] * Magnesium (09/08/2024 5:08 AM CDT) Pathologist [facility] Magnesium 2.4 1.4 - 2.5 mg/dL Blood 09/08/2024 5:08 AM CDT 09/08/2024 5:24 AM CDT us Christine Rossi MD LAB BLOOD ORDERABLES Final R esult Performing Organization Address City/[facility] Co de Phone Number [facility] [place] [employer] [address] * Basic metabolic panel (09/08/2024 5:08 AM CDT) Pathologist [facility] Sodium 140 135 - 145 mmol/L Potassium, pl 3.8 3.3 - 4.9 mmol/L [facility] Chloride 104 97 - 110 mmol/L [facility] CO2 24 22 - 32 mmol/L [facility] Anion gap 12 2 - 15 mmol/L [facility] BUN 12 6 - 25 mg/dL [facility] Creatinine 0.90 0.80 - 1.30 mg/dL [facility] Glucose 103 70 - 199 mg/dL [facility] Comment: Interpretive Data Fasting glucose >/= [...] 2022. Calcium 9.3 8.5 - 10.3 mg/dL [facility] Blood 09/08/2024 5:08 AM CDT 09/08/2024 5:24 AM CDT us Christine Rossi MD LAB BLOOD ORDERABLES Final R esult Performing Organization Address City/[facility]/ZIP Co de Phone Number [facility] Department [place] [address] * Troponin I high-sensitivity 6-hour (09/07/2024 10:41 PM CDT) Pathologist [facility] Trop I hs 6 <=35 ng/L Comment: Interpretive Data For further hscTnI resources including the diagnostic algorithm and an aid in interpretation, copy and paste this link: [email or web address].[email or web address]/show/[email or web address] Current Interpretive Data last revised 2019. Trop I hs delta See Comment ng/L [facility] Comment:Inappropriate collec tion time to report a delta. Trop I hs pct delta See Comment % [facility] Comment:Inappropriate collec tion time to report a delta. Trop I hs interp See Comment [facility] Comment:Inappropriate collec tion time to report a delta. Blood 09/07/2024 10:4 1 PM CDT 09/07/2024 10:56 PM CDT us Melissa Portillo MD LAB BLOOD ORDERABLES F inal Result Performing Organization Address [facility] Co de Phone Number [facility] Department [place] [address] * eGFR (09/07/2024 10:41 PM CDT) [facility] eGFR >90 >=60 mL/min/1. 73 m2 Comment: [...] MD LAB BLOOD ORDERABLES Final R esult [facility] Department [place] [address] * Differential, auto (09/07/2024 10:41 PM CDT) Neutrophil abs 4.41 1.50 - 6.50 K/cumm Imm gran abs 0.02 0.00 - 0.10 K/cumm [facility] Lymphocyte abs 2.24 0.80 - 3.30 K/cumm [facility] Monocyte abs 0.44 0.20 - 0.80 K/cumm [facility] Eosinophil abs 0.01 0.00 - 0.50 K/cumm [facility] Basophil abs 0.06 0.00 - 0.10 K/cumm [facility] Neutrophil pct 61.5 % [facility] Comment: Interpretive Data Percent cell count reference ranges are not reported, since discordance with absolute values may lead to misinterpretation of CBC data. Current Interpretive Data was last revised on 2017. Imm gran pct 0.3 % [facility] Comment: Interpretive Data Percent cell count reference ranges are not reported, since discordance with absolute values may lead to misinterpretation of CBC data. Current Interpretive Data was last revised on 2017. Lymphocyte pct 31.2 % [facility] Comment: Interpretive Data Percent cell count reference ranges are not reported, since discordance with absolute values may lead to misinterpretation of CBC data. Current Interpretive Data was last revised on 2017. Monocyte pct 6.1 % [facility] Comment: Interpretive Data Percent cell count reference ranges are not reported, since discordance with absolute values may lead to misinterpretation of CBC data. Current Interpretive Data was last revised on 2017. Eosinophil pct 0.1 % [facility] Comment: Interpretive Data Percent cell count reference ranges are not reported, since discordance with absolute values may lead to misinterpretation of CBC data. Current Interpretive Data was last revised on 2017. Basophil pct 0.8 % [facility] Comment: Interpretive Data Percent cell count reference ranges are not reported, since discordance with absolute values may lead to misinterpretation of CBC data. Current Interpretive Data was last revised on 2017. Blood 09/07/2024 10:4 1 PM CDT 09/07/2024 10:56 PM CDT us Christine Rossi MD LAB BLOOD ORDERABLES Final R esult [facility] Department [place] [address] * CBC with auto differential (09/07/2024 10:41 PM CDT) WBC 7.18 3.80 - 9.90 K/cumm Hgb 13.9 13.0 - 17.5 g/dL [facility] Hct 39.4 38.9 - 50.3 % [facility] Plt 175 150 - 400 K/cumm [facility] MPV 9.4 9.1 - 12.3 fL [facility] RBC 4.36 4.30 - 5.80 M/cumm [facility] MCV 90.4 81.3 - 96.4 fL [facility] MCH 31.9 27.1 - 33.3 pg [facility] MCHC 35.3 32.3 - 35.7 g/dL [facility] RDW CV 13.2 11.1 - 14.9 % [facility] RDW SD 43.5 35.7 - 48.1 fL [facility] NRBC abs 0.00 0.00 - 0.01 K/cumm [facility] Blood 09/07/2024 10:4 1 PM CDT 09/07/2024 10:56 PM CDT us Christine Rossi MD LAB BLOOD ORDERABLES Final R esult [facility] Department [place] [address] * (ABNORMAL) Comprehensive metabolic panel (09/07/2024 10:41 PM CDT) Sodium 141 135 - 145 mmol/L Potassium, pl 4.3 3.3 - 4.9 mmol/L [facility] Comment:Hemolyzed; Potassium value may be falsely elevated by as much as 0.3-0.5 mmol/L. Suggest redraw and reanalysis. Chloride 106 97 - 110 mmol/L [facility] CO2 25 22 - 32 mmol/L [facility] Anion gap 10 2 - 15 mmol/L [facility] BUN 13 6 - 25 mg/dL [facility] Creatinine 0.93 0.80 - 1.30 mg/dL [facility] Glucose 97 70 - 199 mg/dL [facility] Comment: Interpretive Data Fasting glucose >/= [...] 2022. Calcium 9.2 8.5 - 10.3 mg/dL [facility] Bilirubin, total 1.7(H) 0.1 - 1.2 mg/dL [facility] Protein, pl 6.7 6.5 - 8.5 g/dL [facility] Albumin 4.0 3.5 - 5.0 g/dL [facility] Alk phos 49 40 - 130 Units/L [facility] ALT 27 7 - 55 Units/L [facility] AST 33 10 - 50 Units/L [facility] Comment:Hemolyzed; result ma y be falsely elevated Blood 09/07/2024 10:4 1 PM CDT 09/07/2024 10:55 PM CDT us Christine Rossi MD LAB BLOOD ORDERABLES Final R esult Performing Organization Address [facility] Co de Phone Number [facility] Department [place] [employer] [place] [address] * Troponin I high-sensitivity 4-hour (09/07/2024 8:09 PM CDT) Trop I hs 6 <=35 ng/L Comment: Interpretive Data For further hscTnI resources including the diagnostic algorithm and an aid in interpretation, copy and paste this link: [email or web address].testcatalog.org/show/[email or web address] Current Interpretive Data last revised 2019. Trop I hs delta 0 ng/L [facility] Trop I hs interp Insignificant [facility] Blood 09/07/2024 8:09 PM CDT 09/07/2024 8:27 PM CDT us Melissa Portillo MD LAB BLOOD ORDERABLES F inal Result Performing Organization Address City/[facility]/ZIP Co de Phone Number [facility] [place] [employer] [address] * Troponin I high-sensitivity 2-hour (09/07/2024 5:58 PM CDT) Trop I hs 5 <=35 ng/L Comment: Interpretive Data For further hscTnI resources including the diagnostic algorithm and an aid in interpretation, copy and paste this link: [email or web address]/show/[email or web address] Current Interpretive Data last revised 2019. Trop I hs delta -1 ng/L [facility] Trop I hs interp Insignificant [facility] Blood 09/07/2024 5:58 PM CDT 09/07/2024 6:08 PM CDT Melissa Portillo MD LAB BLOOD ORDERABLES F inal Result Performing Organization Address [facility] de Phone Number [facility] [place] [employer] [address] * Troponin I high-sensitivity series (baseline, 2hr, 4hr, 6hr) (09/07/2024 3:37 PM CDT) Pathologist [facility] Trop I hs 6 <=35 ng/L Comment: Interpretive Data For further hscTnI resources including the diagnostic algorithm and an aid in interpretation, copy and paste this link: [email or web address]/show/[email or web address] Current Interpretive Data last revised 2019. Blood 09/07/2024 3:37 PM CDT 09/07/2024 3:51 PM CDT Melissa Portillo MD LAB BLOOD ORDERABLES F inal Result Performing Organization Address [facility] Co de Phone Number [facility] [employer] [address] * ECG 12 lead (09/07/2024 2:16 PM CDT) Pathologist [facility] Ventricular Rate EKG/Min 108 BPM [facility] Atrial Rate 141 BPM [facility] QRS-Interval (MSEC) 116 ms [facility] QT-Interval (MSEC) 354 ms [facility] QTc 474 ms [facility] R [place] 269 degrees [facility] T [place] 53 degrees [facility] Diagnosis Atrial fibrillation with rapid ventricular [...] has shortened Confirmed by LARRY LAGOS M.D ([id number]) on 09/09/2024 3:25:45 PM [facility] 09/07/2024 2:16 PM CDT 09/09/2024 3:25 PM CDT us Conner Stovall MD ECG ORDERABLES Final Result [facility] * eGFR (09/06/2024 9:47 PM [...] MD LAB BLOOD ORDERABLES Final R esult [facility] Department [place] [address] * Differential, auto (09/06/2024 9:47 PM CDT) Neutrophil abs 4.88 1.50 - 6.50 K/cumm Imm gran abs 0.03 0.00 - 0.10 K/cumm [facility] Lymphocyte abs 2.82 0.80 - 3.30 K/cumm [facility] Monocyte abs 0.79 0.20 - 0.80 K/cumm [facility] Eosinophil abs 0.03 0.00 - 0.50 K/cumm [facility] Basophil abs 0.05 0.00 - 0.10 K/cumm [facility] Neutrophil pct 56.8 % [facility] Comment: Interpretive Data Percent cell count reference ranges are not reported, since discordance with absolute values may lead to misinterpretation of CBC data. Current Interpretive Data was last revised on 2017. Imm gran pct 0.3 % [facility] Comment: Interpretive Data Percent cell count reference ranges are not reported, since discordance with absolute values may lead to misinterpretation of CBC data. Current Interpretive Data was last revised on 2017. Lymphocyte pct 32.8 % [facility] Comment: Interpretive Data Percent cell count reference ranges are not reported, since discordance with absolute values may lead to misinterpretation of CBC data. Current Interpretive Data was last revised on 2017. Monocyte pct 9.2 % [facility] Comment: Interpretive Data Percent cell count reference ranges are not reported, since discordance with absolute values may lead to misinterpretation of CBC data. Current Interpretive Data was last revised on 2017. Eosinophil pct 0.3 % [facility] Comment: Interpretive Data Percent cell count reference ranges are not reported, since discordance with absolute values may lead to misinterpretation of CBC data. Current Interpretive Data was last revised on 2017. Basophil pct 0.6 % [facility] Comment: Interpretive Data Percent cell count reference ranges are not reported, since discordance with absolute values may lead to misinterpretation of CBC data. Current Interpretive Data was last revised on 2017. Blood 09/06/2024 9:47 PM CDT 09/06/2024 10:13 PM CDT us Christine Rossi MD LAB BLOOD ORDERABLES Final R esult Performing Organization Address City/[facility]/ZIP Co de Phone Number [facility] [place] [address] * Thyroid Function Marcus [place] (09/06/2024 9:47 PM CDT) [facility] TSH 2.14 0.30 - 4.20 mcIUnit/mL Blood 09/06/2024 9:47 PM CDT 09/06/2024 10:13 PM CDT us Christine Rossi MD LAB BLOOD ORDERABLES Final R esult Performing Organization Address City/[facility] Co de Phone Number [facility] [place] [address] * (ABNORMAL) CBC with auto differential (09/06/2024 9:47 PM CDT) [facility] WBC 8.60 3.80 - 9.90 K/cumm Hgb 15.1 13.0 - 17.5 g/dL [facility] Hct 42.1 38.9 - 50.3 % [facility] Plt 181 150 - 400 K/cumm [facility] MPV 9.0(L) 9.1 - 12.3 fL [facility] RBC 4.69 4.30 - 5.80 M/cumm [facility] MCV 89.8 81.3 - 96.4 fL [facility] MCH 32.2 27.1 - 33.3 pg [facility] MCHC 35.9(H) 32.3 - 35.7 g/dL [facility] RDW CV 13.2 11.1 - 14.9 % [facility] RDW SD 43.3 35.7 - 48.1 fL [facility] NRBC abs 0.00 0.00 - 0.01 K/cumm [facility] Blood 09/06/2024 9:47 PM CDT 09/06/2024 10:13 PM CDT Christine Rossi MD LAB BLOOD ORDERABLES Final R esult Performing Organization Address [facility] de Phone Number [facility] Department [place] [address] * (ABNORMAL) Protime-INR (09/06/2024 9:47 PM CDT) PT 13.7(H) 9.7 - 13.0 sec INR 1.26(H) 0.90 - 1.20 [facility] Comment: Interpretive data Oral anticoagulant therapeutic [...] ORDERABLES Final R esult Performing Organization Address City/[facility] Co de Phone Number [facility] Department [place] [address] * (ABNORMAL) Comprehensive metabolic panel (09/06/2024 9:47 PM CDT) Sodium 141 135 - 145 mmol/L Potassium, pl 4.3 3.3 - 4.9 mmol/L [facility] Chloride 104 97 - 110 mmol/L [facility] CO2 25 22 - 32 mmol/L [facility] Anion gap 12 2 - 15 mmol/L [facility] BUN 17 6 - 25 mg/dL [facility] Creatinine 0.93 0.80 - 1.30 mg/dL [facility] Glucose 72 70 - 199 mg/dL [facility] Comment: Interpretive Data Fasting glucose >/= [...] 2022. Calcium 9.5 8.5 - 10.3 mg/dL [facility] Bilirubin, total 2.4(H) 0.1 - 1.2 mg/dL [facility] Protein, pl 6.8 6.5 - 8.5 g/dL [facility] Albumin 4.3 3.5 - 5.0 g/dL [facility] Alk phos 52 40 - 130 Units/L [facility] ALT 27 7 - 55 Units/L [facility] AST 27 10 - 50 Units/L [facility] Blood 09/06/2024 9:47 PM CDT 09/06/2024 10:13 PM CDT us Christine Rossi MD LAB BLOOD ORDERABLES Final R esult [facility] Department [place] [address] * ECG 12 lead (09/06/2024 3:24 PM CDT) Ventricular Rate EKG/Min 96 BPM [facility] Atrial Rate 83 BPM [facility] WI-Interval (MSEC) 94 ms [facility] QRS-Interval (MSEC) 110 ms [facility] QT-Interval (MSEC) 424 ms [facility] QTc 535 ms [facility] P [place] 44 degrees [facility] R [place] -88 degrees [facility] T [place] -13 degrees [facility] Diagnosis Sinus rhythm with short WI with frequent , and consecutive Premature ventricular complexes with junctional escape complexes Left axis deviation Low voltage QRS Incomplete right bundle branch block Prolonged QT Abnormal ECG No previous ECGs available Confirmed by Gregory Gonzalez MD ([id number]) on 2024 2:46:49 PM [facility] 09/06/2024 3:24 PM CDT 2024 2:46 PM CDT us Conner Stovall MD ECG ORDERABLES Final Result Performing Organization Address City/[facility]/ZIP Co de Phone Number [facility] * Lactate (09/06/2024 2:26 PM CDT) [facility] Lactate 2.0 0.7 - 2.0 mmol/L Blood 09/06/2024 2:26 PM CDT 09/06/2024 2:36 PM CDT us Christine Rossi MD LAB BLOOD ORDERABLES Final R esult Performing Organization Address City/[facility] Co de Phone Number [facility] Department [place] [address] * Respiratory pathogen panel Nasopharyngeal (09/06/2024 9:37 AM CDT) [facility] Influenza A RNA Not Detected Not Detected Influenza B RNA Not Detected Not Detected [facility] RSV RNA Not Detected Not Detected [facility] COVID-19 RNA Not Detected Not Detected [facility] Coronavirus 229E RNA Not Detected Not Detected [facility] Coronavirus HKU1 RNA Not Detected Not Detected [facility] Coronavirus NL63 RNA Not Detected Not Detected [facility] Coronavirus OC43 RNA Not Detected Not Detected [facility] Adenovirus DNA Not Detected Not Detected [facility] Metapneumovirus RNA Not Detected Not Detected [facility] Rhinovirus/Enterov irus RNA Not Detected Not Detected [facility] Parainfluenza 1 RNA Not Detected Not Detected [facility] Parainfluenza 2 RNA Not Detected Not Detected [facility] Parainfluenza 3 RNA Not Detected Not Detected [facility] Parainfluenza 4 RNA Not Detected Not Detected [facility] B. pertussis DNA Not Detected Not Detected [facility] B. parapertussis DNA Not Detected Not Detected [facility] C. pneumoniae DNA Not Detected Not Detected [facility] M. pneumoniae DNA Not Detected Not Detected [facility] Nasopharyngeal 09/06/2024 9: 37 AM CDT 09/06/2024 9:43 AM CDT Narrative [facility] - 09/06/2024 10:36 AM CDT Is the Patient experiencing symptoms consistent with COVID?->No Surveillance testing for transplant patient?->No Interpretive Data The [employer] FilmArray Respiratory Panel (RP2.1) assay is a [...] assay has FDA clearance for testing of ALCOHOL LAW ENFORCEMENT AGENT swabs. The performance of additional specimen types has been assessed by the performing laboratory. The performance characteristics of this assay have been determined by [facility] Infectious Disease [facility]. Current interpretive data was last revised on 22. Mikki Guzman MD LAB MICROBIOLOGY - GENERA L ORDERABLES Final Result [facility] Department [place] [address] * (ABNORMAL) Urinalysis reflex to microscopic and culture Urine (09/06/2024 7:03 AM CDT) Color, ur Straw Yellow Clarity, ur Clear Clear [facility] Specific gravity, ur >1.042(H) 1.003 - 1.030 [facility] pH, urine 6.0 [facility] Comment: Interpretive Data U rine pH is affected by diet, medications, systemic acid-base disturbances, and renal tubular function. pH may affect urinary stone formation. For example, urine pH below 6.0 may help reduce the tendency for calcium phosphate stones and pH greater than 6.0 may reduce the tendency for uric acid stone formation. Source: [facility] Current Interpretive Data was last revised on 2017 Protein, ur ql Trace Negative [facility] Glucose, ur ql Negative Negative [facility] Ketones, ur 1+(A) Negative [facility] Bilirubin, ur Negative Negative [facility] Blood, ur Negative Negative [facility] Urobilinogen, ur <2.0 <2.0 mg/dL [facility] Nitrite, ur Negative Negative [facility] Leukocyte esterase, ur Negative Negative [facility] UA reflex comment Reflex conditions for microscopic UA and culture not met. [facility] Urine 09/06/2024 7:03 AM CDT 09/06/2024 7:21 AM CDT us Ravi Weaver MD LAB MICROBIOLOGY - Med[employer] LiaisonAL ORDERABLES Final Result [facility] Department [place] [address] * CT Abdomen Pelvis W Contrast (09/06/2024 [...] Trop I hs delta -1 ng/L LÁ[facility]O ECHEVARRIA Trop I hs interp Insignificant LÁZARO Aguirre Blood 09/06/2024 12:5 4 AM CDT 09/06/2024 1:14 AM CDT us Ravi Weaver MD LAB BLOOD ORDERABLES Final Result LÁZARO PINEDA [facility] Department [place] [address] * (ABNORMAL) ECG 12-LEAD (09/06/2024 12:11 AM CDT) Narrative [facility] - 09/06/2024 12:11 AM CDT Anand Swain [...] Ravi Weaver MD ECG ORDERABLES Final Result [facility] * CT Chest PE (CTA) W Contrast [...] by: Conner Ashley MD Ravi Weaver MD G CT PROCEDURES Fin al Result * XR Chest 1 Vw Portable (09/05/2024 11:00 PM CDT) Anatomical Region Laterality Modality Body, Chest N/A Computed Radiogr aphy 09/05/2024 11:1 8 PM CDT Impressions 09/06/2024 9:23 AM CDT Comparison is made to 06/28/2024. Redemonstrated enlarged cardiac silhouette with enlarged main pulmonary artery. No consolidation, pleural effusion or pneumothorax. Dictated by: yCndy Lucio MD, PhD The radiology attending physician [...] by: Conner Ashley MD Ravi Weaver MD IM XR PROCEDURES Fin al Result * (ABNORMAL) POC Blood Gas and Chemistries, Venous - (09/05/2024 10:53 PM CDT) [facility] pH, Mike POC 7.35 7.32 - 7.43 pCO2, mike POC 48 40 - 50 mmHg [facility] pO2, mike POC <20(C) mmHg [facility] Na, POC 139 135 - 145 mmol/L [facility] K POC 4.0 3.3 - 4.9 mmol/L [facility] Comment: Interpretive Data Not all point of care methods assess for hemolysis. Confirm with instrument and retest K+ if not consistent with clinical signs and symptoms. Current Interpretive Data was last revised on 2023. Cl, POC 106 97 - 110 mmol/L [facility] Ionized Ca, POC 4.86 4.50 - 5.10 mg/dL [facility] Glucose, POC 106 70 - 199 mg/dL [facility] Lactate POC 2.4(H) 0.7 - 2.0 mmol/L [facility] MetHb, Mike POC 0.3 0.0 - 1.9 % [facility] O2 Sat, Mike POC (Ra) 22 % [facility] Base excess, POC 0.1 mmol/L [facility] Hct, POC 50.0 41.4 - 51.6 % [facility] Total Hb, POC 16.8 13.8 - 17.2 g/dL [facility] Blood 09/05/2024 10:5 3 PM CDT 09/05/2024 10:53 PM CDT us Lisa Ibarra MD LAB POCT ORDERABLES - DEVICE Final Result Performing Organization Address City/[facility]/ZIP Co de Phone Number [facility] Department [place] [employer] [place] [address] * Troponin I high-sensitivity series (baseline, 2hr, 4hr, 6hr) (09/05/2024 10:51 PM CDT) Trop I hs 12 <=35 ng/L Comment: Interpretive Data For further [facility] resources including the diagnostic algorithm and an aid in interpretation, copy and paste this link: [email or web address] Current Interpretive Data last revised 2019. Blood 09/05/2024 10:5 1 PM CDT 09/05/2024 11:05 PM CDT us Ravi Weaver MD LAB BLOOD ORDERABLES Final Result Performing Organization Address City/[facility]/ZIP Co de Phone Number [facility] Department [place] [address] * (ABNORMAL) Lactate (09/05/2024 10:51 PM CDT) Lactate 2.4(H) 0.7 - 2.0 mmol/L Blood 09/05/2024 10:5 1 PM CDT 09/05/2024 11:06 PM CDT Ravi Weaver MD LAB BLOOD ORDERABLES Final Result Performing Organization Address City/[facility]/ZIP Co de Phone Number [facility] Department [place] [employer] [place] [address] * eGFR (09/05/2024 10:51 PM CDT) eGFR [...] MD LAB BLOOD ORDERABLES Final Result L[facility]ZAR[facility] Department [place] [employer] [address] * Differential, auto (09/05/2024 10:51 PM CDT) Neutrophil abs 5.58 1.50 - 6.50 K/cumm Imm gran abs 0.02 0.00 - 0.10 K/cumm [facility] Lymphocyte abs 1.96 0.80 - 3.30 K/cumm [facility] Monocyte abs 0.53 0.20 - 0.80 K/cumm [facility] Eosinophil abs 0.01 0.00 - 0.50 K/cumm [facility] Basophil abs 0.04 0.00 - 0.10 K/cumm [facility] Neutrophil pct 68.6 % [facility] Comment: Interpretive Data Percent cell count reference ranges are not reported, since discordance with absolute values may lead to misinterpretation of CBC data. Current Interpretive Data was last revised on 2017. Imm gran pct 0.2 % [facility] Comment: Interpretive Data Percent cell count reference ranges are not reported, since discordance with absolute values may lead to misinterpretation of CBC data. Current Interpretive Data was last revised on 2017. Lymphocyte pct 24.1 % [facility] Comment: Interpretive Data Percent cell count reference ranges are not reported, since discordance with absolute values may lead to misinterpretation of CBC data. Current Interpretive Data was last revised on 2017. Monocyte pct 6.5 % [facility] Comment: Interpretive Data Percent cell count reference ranges are not reported, since discordance with absolute values may lead to misinterpretation of CBC data. Current Interpretive Data was last revised on 2017. Eosinophil pct 0.1 % [facility] Comment: Interpretive Data Percent cell count reference ranges are not reported, since discordance with absolute values may lead to misinterpretation of CBC data. Current Interpretive Data was last revised on 2017. Basophil pct 0.5 % [facility] Comment: Interpretive Data Percent cell count reference ranges are not reported, since discordance with absolute values may lead to misinterpretation of CBC data. Current Interpretive Data was last revised on 2017. Blood 09/05/2024 10:5 1 PM CDT 09/05/2024 11:05 PM CDT Ravi Weaver MD LAB BLOOD ORDERABLES Final Result Performing Organization Address City/[facility]/ZIP Co de Phone Number LÁZARO [facility] Department [place] [address] * (ABNORMAL) Pro B-type natriuretic peptide (09/05/2024 [...] BLOOD ORDERABLES Final Result Performing Organization Address [facility]/ZIP Co de Phone Number [facility] Department [place] [address] * (ABNORMAL) CBC with auto differential (09/05/2024 10:51 PM CDT) [facility] WBC 8.14 3.80 - 9.90 K/cumm Hgb 16.7 13.0 - 17.5 g/dL [facility] Hct 47.2 38.9 - 50.3 % [facility] Plt 201 150 - 400 K/cumm [facility] MPV 8.9(L) 9.1 - 12.3 fL [facility] RBC 5.20 4.30 - 5.80 M/cumm [facility] MCV 90.8 81.3 - 96.4 fL [facility] MCH 32.1 27.1 - 33.3 pg [facility] MCHC 35.4 32.3 - 35.7 g/dL [facility] RDW CV 13.2 11.1 - 14.9 % [facility] RDW SD 43.7 35.7 - 48.1 fL [facility] NRBC abs 0.00 0.00 - 0.01 K/cumm [facility] Blood 09/05/2024 10:5 1 PM CDT 09/05/2024 11:05 PM CDT Ravi Weaver MD LAB BLOOD ORDERABLES Final Result [facility] Department [place] [address] * D-dimer, quantitative (09/05/2024 10:51 PM CDT) [facility] D-Dimer 342 <=499 ng/mL FEU Comment: Interpretive [...] 1 PM CDT 09/05/2024 11:49 PM CDT us Ravi Weaver MD LAB BLOOD ORDERABLES Final Result Performing Organization Address City/[facility] [place] [address] * Magnesium (09/05/2024 10:51 PM CDT) Pathologist [facility] Magnesium 2.2 1.4 - 2.5 mg/dL Blood 09/05/2024 10:5 1 PM CDT 09/05/2024 11:05 PM CDT Lisa Ibarra MD LAB BLOOD ORDERABLES Final R esult Performing Organization Address [facility] [place] [address] * Lipase (09/05/2024 10:51 PM CDT) Pathologist [facility] Lipase 52 10 - 99 Units/L Blood 09/05/2024 10:5 1 PM CDT 09/05/2024 11:05 PM CDT Ravi Weaver MD LAB BLOOD ORDERABLES Final Result Performing Organization Address [facility] Co de Phone Number [facility] [place] [address] * Creatine kinase (CK), total (09/05/2024 10:51 PM CDT) Pathologist [facility] CK 118 40 - 300 Units/L Blood 09/05/2024 10:5 1 PM CDT 09/05/2024 11:05 PM CDT Lisa Ibarra MD LAB BLOOD ORDERABLES Final R esult Performing Organization Address [facility] Co de Phone Number [facility] Department [place] [address] * (ABNORMAL) Bilirubin, direct (09/05/2024 10:51 PM CDT) [facility] Bilirubin, direct 0.5(H) 0.1 - 0.3 mg/dL Blood 09/05/2024 10:5 1 PM CDT 09/05/2024 11:05 PM CDT Christine Rossi MD LAB BLOOD ORDERABLES Final R esult Performing Organization Address [facility] Co de Phone Number [facility] Department [place] [address] * (ABNORMAL) Comprehensive metabolic panel (09/05/2024 10:51 PM CDT) [facility] Sodium 141 135 - 145 mmol/L Potassium, pl 4.3 3.3 - 4.9 mmol/L [facility] Chloride 103 97 - 110 mmol/L [facility] CO2 25 22 - 32 mmol/L [facility] Anion gap 13 2 - 15 mmol/L [facility] BUN 27(H) 6 - 25 mg/dL [facility] Creatinine 1.19 0.80 - 1.30 mg/dL [facility] Glucose 99 70 - 199 mg/dL [facility] Comment: Interpretive Data Fasting glucose >/= [...] 2022. Calcium 9.9 8.5 - 10.3 mg/dL [facility] Bilirubin, total 2.9(H) 0.1 - 1.2 mg/dL [facility] Protein, pl 7.6 6.5 - 8.5 g/dL [facility] Albumin 4.7 3.5 - 5.0 g/dL [facility] Alk phos 56 40 - 130 Units/L [facility] ALT 29 7 - 55 Units/L [facility] AST 32 10 - 50 Units/L [facility] Blood 09/05/2024 10:5 1 PM CDT 09/05/2024 11:05 PM CDT Ravi Weaver MD LAB BLOOD ORDERABLES Final Result [facility] Department [place] [address] * (ABNORMAL) ECG 12-LEAD (09/05/2024 10:34 PM CDT) Narrative [facility] - 09/05/2024 10:34 PM CDT Haydee Piedra [...] workup in the ED Procedure Note Haydee Pierda MD - 09/05/2024 10:34 PM CDT Procedure [...] workup in the ED Haydee Piedra MD 09/05/246 us Lisa Ibarra MD ECG ORDERABLES Final Result [facility] * Hepatitis panel, acute Blood (06/29/2024 11:13 AM CDT) Hep A IgM Nonreactive Nonreactive Hep B core IgM Nonreactive Nonreactive [facility] Hep C Ab Nonreactive Nonreactive [facility] Comment:Antibodies to HCV no t detected. Does NOT exclude the possibility of recent exposure to HCV. Current interpretive data was last revised on 21 HepBsAg Nonreactive Nonreactive [facility] Blood 06/29/2024 11:1 3 AM CDT 06/29/2024 12:25 PM CDT us Samantha Obrien MD LAB MICROBIOLOGY - GENERAL ORDERABLES Final Result [facility] Department [place] [address] from Last 3 Months or Most Recently Relevant to Health Maintenance Insurance [facility] ADVANTAGE MEDICARE IDPA MANAGED MEDICARE GENERIC RISK OTHER [facility] MED[facility] ADVANTAGE [facility] Advance Directives For more information, please contact: [phone] * Full Code (Latest Code Status on File) Date Activated Date Inactivated Comments 09/06/2024 11:11 AM 09/17/2024 6:58 PM * Full Code Date Activated Date Inactivated Comments 06/28/2024 9:57 PM 06/30/2024 7:14 PM Care Teams Aluminum Siding Applicator Relationship Specialty Start Date End Date Louis Hewitt MD PCP - General Family Medicine 01/12/20
--- OUTSIDE RECORDS SUMMARY | 2024-11-02 15:29 | XMS_ITS | Patient Health Record ---
Author Organization [facility] [employer] [facility] Address [address] [place] [address] Care Team Providers Care Lead Programmer Name Role Phone Eunice Dimas Unavailable [phone] Reason For Referral No Information Medications Medication SIG (Take, Route, Frequency, Duration) Notes Start Date End Date Status predniSONE 20 MG Oral 02/24/2021 Ac tive Eliquis 5 MG Oral 02/24/2021 Active DULoxetine HCl 60 MG Oral 02/24/2021 Active Cefdinir 300 MG Oral 02/24/2021 Act jimy HYDROcodone-Acetaminophen 10-325 MG Oral 02/24/2021 Active ALPRAZolam 1 MG Oral 02/24/2021 Act jimy ProAir HFA 108 (90 Base) MCG/ACT Inhalation 02/24/2021 Active Cyclobenzaprine HCl 5 MG Oral 02/24/2021 Active Immunizations Vaccine Route Administration Date Status Comme nts Tdap Unknown 03/26/2018 Administered Plan Of Treatment No Information Insurance Providers Payer Name Payer Address Payer Phone Subscriber Number Group Number Insured Name Patient Relationship to Insured Coverage Start Date Coverage End Date Medicare-I l Medicare [address] [place] [phone] [id number] CARLOS OSEGUERA Self - patient is the insured [facility] General Plan [facility] On Or After 20 [address] [place] [address] [id number] CARLOS OSEGUERA Self - patient is the insured Medical (General) History Surgical History Surgery Date(Month/Year) Knee arthroscopy/surgery (89068) Appendectomy ([id number]) Hernia repair w/mesh (73295)
--- OUTSIDE RECORDS SUMMARY | 2024-11-02 15:29 | XMS_ITS | Continuity of Care Document ---
Author Organization [facility] Address [address] [facility] [address] [place] [address] Phone Care Team Providers Care Blunger Loader Name Role Phone Sandra Vazquez Unavailable Unavailable Advance Directives Directive Yes / No Effective Date File Name No Information Encounters Encounter Description Practice Location Reason(s) For Visit Diagnoses Date Provider Providers Copied on Encounter [facility], [address], [place], [place], [id number], [place] tel:[phone] [facility] No Information [phone] Taylor Flores. [address] , [address], [place], [address], [place]. tel:[phone] Family History Family Member Type Diagnosis Age At Onset No Information Payers Payer name Insurance type Covered libertarian ID Authoriza tion(s) Medicaid [facility] [id number] Social History Type Description Quantity Date Captured [...]
[2024-11-02 15:38] VITALS: BP 105/75; PULSE 116; RESP 20; TEMP 36.4; O2SAT 96
[2024-11-02 16:29] VITALS: BP 105/80; PULSE 115; RESP 16; O2SAT 100
--- OUTSIDE RECORDS SUMMARY | 2024-11-02 16:47 | XMS_ITS | Encounter Summary ---
Author Organization [facility] Address [address] 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
--- OUTSIDE RECORDS SUMMARY | 2024-11-02 16:47 | XMS_ITS | Continuity of Care Document ---
Author Organization [facility] Address [address] [place] [address] Phone Care Team Providers Care Careers Adviser Name Role Phone Sandra Vazquez Unavailable Unavailable Advance Directives Directive Yes / No Effective Date File Name No Information Encounters Encounter Description Practice Location Reason(s) For Visit Diagnoses Date Provider Providers Copied on Encounter [facility], [address], [place], [place], [id number], [place] tel:[phone] [facility] No Information [phone] Taylor Flores. [address] , [address], [place], [address], [place]. tel:[phone] Family History Family Member Type Diagnosis Age At Onset No Information Payers Payer name Insurance type Covered alliance party ID Authoriza tion(s) Medicaid [facility] [id number] Social History Type Description Quantity Date Captured [...]
--- OUTSIDE RECORDS SUMMARY | 2024-11-02 16:47 | XMS_ITS | Encounter Summary ---
Author Organization [facility] Address [address] [place] [address] Care Team Providers Care Aircraft Engine Specialist Name Role Phone Louis Hewitt MD Primary Care Provider + [phone] Margarita Stoner RN Unavailable [phone] Encounter Details Date Type Department Care Team (Late st Contact Info) Description 09/15/2024 Documentation [facility] Case Management [address] [place] [address] Jazmin Fields RN Social History Tobacco Use Types Packs/Day Years Used Date Smoking Tobacco: Never Smokeless Tobacco: Never [facility] Utilities Answer Date Recorded In the past 12 months has [employer] electric, gas, oil, or water company threatened [...] often do you attend chur ch or anabaptist services? Never 09/09/2024 Do you belong to any clubs o r organizations such as restoration groups, unions, fraternal or athletic groups, or [...] any time in the past 12 m [facility], were you homeless or living in a fdc (including now)? No 09/09/2024 Personal Safety Answer Date Recorded Have you ever been in or are you currently in a harmful physical or emotional relationship or is someone making you feel afraid or unsafe? Denies 09/15/2024 Sex and Gender Information Value Date Recorded Sex Assigned at Not on file Legal Sex Male 11:14 PM [employer] Gender Identity Not on file Sexual Orientation [...] on filedocumented in this encounter Care Teams Aircraft Engine Specialist Relationship Specialty Start Date End Date Louis Hewitt MD PCP - General Family Medicine 01/12/20 Margarita Stoner RN [id number] [address] [facility] Worker 09/18/24 09/21/24 documented as of this encounter
--- OUTSIDE RECORDS SUMMARY | 2024-11-02 16:47 | XMS_ITS | Clinical Summary ---
Author Organization [facility] Address [address] [place] [address] Care Team Providers Care Real Estate Office Manager Name Role Phone Louis Hewitt MD Primary Care Provider + [phone] Allergies Active Allergy Reactions Criticality Noted Date [...] Care Team Description 09/22/2024 SHOP/CHAP Initial Outreach [facility] OP CASE MANAGEMENT [address] [place] [address] Margarita Stoner RN 09/19/2024 SHOP/CHAP Initial Outreach [facility] OP CASE MANAGEMENT [address] [place] [phone] Margarita Stoner RN 09/18/2024 SHOP/CHAP Initial Outreach [facility] OP CASE MANAGEMENT [address] [place] [phone] Margarita Stoner RN 09/18/2024 SHOP/CHAP Initial Eligibility Review [facility] OP CASE MANAGEMENT [address] [place] [phone] Margarita Stoner RN 09/17/2024 Telephone [facility] Cardiology [address] [facility] Medical Office Building [address] [place] [phone] Bess Lim MD ACHD f/u appt with Echo 09/15/2024 11:45 AM CDT - 09/15/2024 1:35 PM CDT Surgery [facility] [address] [place], [place] [phone] Tin Calvert MD PhD ATRIAL SEPTAL DEFECT (ASD), PATENT FORAMEN OVALE (PFO), FENESTRATION CLOSURE [id number] 09/15/2024 Documentation [facility] Case Management [address] [place] [phone] Jazmin Fields RN 09/08/2024 Telephone [facility] Cardiology [address] [place] [address] 8th Floor [address] [place] [phone] Taylor Last 09/05/2024 10:37 PM CDT - 09/17/2024 2:30 PM CDT Hospital Encounter [address] [phone] Lisa Ibarra MD Chan, Philip, MD Freilich, [...] (ASD), PATENT FORAMEN OVALE (PFO), FENESTRATION CLOSURE [id number]; Surgeon: Tin Calvert MD PhD; 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 Never 09/09/2024 Do you belong to any clubs o r organizations such as adventism groups, unions, fraternal or athletic groups, or [...] any time in the past 12 m [facility], were you homeless or living in a jail (including now)? No 09/09/2024 Personal Safety Answer Date Recorded Have you ever been in or are you currently in a harmful physical or emotional relationship or is someone making you feel afraid or unsafe? 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 Septal Defect Closure Device N/A: Atrial Septal Defect [employer] 02/22/2029 9-ASD-038 / [id number] / [id number] [employer] System Closure Repair Femoral Artery Suture Mediated Perclose Prostyle 22716-85 - [id number] - [id number] Implanted:Qty: 1 on 09/15/2024 by Tin Calvert MD PhD at [facility] Vascular Closure Device Right: Femoral Vein [employer] 07/23/2026 57619-21 / [id number] / [id number] [employer] System Closure Repair Femoral Artery Suture Mediated Perclose Prostyle 08818-58 - [id number] - [id number] Implanted:Qty: 1 on 09/15/2024 by Tin Calvert MD PhD at [facility] Vascular Closure Device Left: Femoral Vein [employer] 07/23/2026 76100-13 / [id number] / [id number] [employer] Angio-Seal Vip 6fr Closere Device [id number] - [id number] - [id number] Implanted:Qty: 1 on 09/15/2024 by Tin Calvert MD PhD at [facility] Vascular Closure Device Left: Femoral Vein [employer] Tony 05/19/2025 [id number] / [id number] Procedures Procedure Name Priority Date/Time Associated [...] MD LAB BLOOD ORDERABLES Final R esult [facility] [place] [address] * Differential, auto (09/16/2024 9:30 PM CDT) [...] 2017. Imm gran pct 0.3 % [facility] Comment: Interpretive Data Percent cell count reference ranges are not reported, since discordance with absolute values may lead to misinterpretation of CBC data. Current Interpretive Data was last revised on 2017. Lymphocyte pct 31.1 % [facility] Comment: Interpretive Data Percent cell count [...] on 2017. Eosinophil pct 0.8 % [facility] Comment: Interpretive Data Percent cell count [...] MD LAB BLOOD ORDERABLES Final R esult [facility] Department [place] [address] * (ABNORMAL) CBC with auto differential (09/16/2024 9:30 PM CDT) Pathologist [facility] WBC 6.08 3.80 - 9.90 K/cumm Hgb 13.2 13.0 - 17.5 g/dL [facility] Hct 37.9(L) 38.9 - 50.3 % [facility] Plt 173 150 - 400 K/cumm [facility] MPV 8.9(L) 9.1 - 12.3 fL [facility] RBC 4.11(L) 4.30 - 5.80 M/cumm [facility] MCV 92.2 81.3 - 96.4 fL [facility] MCH 32.1 27.1 - 33.3 pg [facility] MCHC 34.8 32.3 - 35.7 g/dL [facility] RDW CV 13.6 11.1 - 14.9 % [facility] RDW SD 46.1 35.7 - 48.1 fL [facility] NRBC abs 0.00 0.00 - 0.01 K/cumm [facility] Blood 09/16/2024 9:30 PM CDT 09/16/2024 10:23 PM CDT us Christine Rossi MD LAB BLOOD ORDERABLES Final R esult [facility] Department [place] [address] * (ABNORMAL) Comprehensive metabolic panel (09/16/2024 9:30 PM CDT) Pathologist [facility] Sodium 139 135 - 145 mmol/L Potassium, pl 4.2 3.3 - 4.9 mmol/L [facility] Chloride 103 97 - 110 mmol/L [facility] CO2 28 22 - 32 mmol/L [facility] Anion gap 8 2 - 15 mmol/L [facility] BUN 17 6 - 25 mg/dL [facility] Creatinine 0.98 0.80 - 1.30 mg/dL [facility] Glucose 99 70 - 199 mg/dL [facility] Comment: Interpretive Data Fasting glucose >/= 126 [...] 2022. Calcium 9.1 8.5 - 10.3 mg/dL [facility] Bilirubin, total 0.7 0.1 - 1.2 mg/dL [facility] Protein, pl 6.4(L) 6.5 - 8.5 g/dL [facility] Albumin 4.0 3.5 - 5.0 g/dL [facility] Alk phos 50 40 - 130 Units/L [facility] ALT 34 7 - 55 Units/L [facility] AST 23 10 - 50 Units/L [facility] Blood 09/16/2024 9:30 PM CDT 09/16/2024 10:23 PM CDT us Christine Rossi MD LAB BLOOD ORDERABLES Final R esult [facility] [place] [address] * TRANSTHORACIC ECHO (TTE) LIMITED/FOLLOW UP W LTD DOPPLER/CF W CONTRAST W BUBBLE (09/16/2024 12:21 PM CDT) EF Mod BP 64 % CONS SCIMAGE Anatomical Region Laterality Modality Ultrasound 09/16/2024 11:1 5 AM CDT Narrative 09/16/2024 12:52 PM CDT [facility] Cardiac [place] [address] Transthoracic Echocardiographic Report Patient Name: MIGUELITO LOPES : 1965 (59y ) Gender: M Study Date: 09/16/2024 11:15:35 AM Ht(Inch): 65 Wt(Lb): 121.03 BSA: 1.59 Child Life Therapist: Javi Marte RDCS Location: [id number] Order Provider: GIULIA GALLAGHER Heart Rate: 81 [...] Procedure Note Binu Urban MD - 09/16/2024 [facility] [place] [address] [place] [address] Transthoracic Echocardiographic Report Patient Name: MIGUELITO LOPES : 1965 (59y ) Gender: M Study Date: 09/16/2024 11:15:35 AM Ht(Inch): 65 Wt(Lb): 121.03 BSA: 1.59 Child Life Therapist: Javi Marte RDCS Location: [id number] Order Provider: GIULIA GALLAGHER Heart Rate: 81 [...] LA Length 4C 8.30 cm MV Decel Cqmm928.84 msec [ 104.00 - 258.00 ] LA [...] Jacome MD LAB BLOOD ORDERABLES Final Result [facility] [place] [address] * Differential, auto (09/15/2024 8:29 PM CDT) [facility] Neutrophil abs 4.26 1.50 - 6.50 K/cumm Imm gran abs 0.01 0.00 - 0.10 K/cumm [facility] Lymphocyte abs 1.51 0.80 - 3.30 K/cumm [facility] Monocyte abs 0.32 0.20 - 0.80 K/cumm [facility] Eosinophil abs 0.01 0.00 - 0.50 K/cumm [facility] Basophil abs 0.04 0.00 - 0.10 K/cumm [facility] Neutrophil pct 69.1 % [facility] Comment: Interpretive Data Percent cell count reference ranges are not reported, since discordance with absolute values may lead to misinterpretation of CBC data. Current Interpretive Data was last revised on 2017. Imm gran pct 0.2 % [facility] Comment: Interpretive Data Percent cell count reference ranges are not reported, since discordance with absolute values may lead to misinterpretation of CBC data. Current Interpretive Data was last revised on 2017. Lymphocyte pct 24.6 % [facility] Comment: Interpretive Data Percent cell count reference ranges are not reported, since discordance with absolute values may lead to misinterpretation of CBC data. Current Interpretive Data was last revised on 2017. Monocyte pct 5.2 % [facility] Comment: Interpretive Data Percent cell count reference ranges are not reported, since discordance with absolute values may lead to misinterpretation of CBC data. Current Interpretive Data was last revised on 2017. Eosinophil pct 0.2 % [facility] Comment: Interpretive Data Percent cell count reference ranges are not reported, since discordance with absolute values may lead to misinterpretation of CBC data. Current Interpretive Data was last revised on 2017. Basophil pct 0.7 % [facility] Comment: Interpretive Data Percent cell count reference ranges are not reported, since discordance with absolute values may lead to misinterpretation of CBC data. Current Interpretive Data was last revised on 2017. Blood 09/15/2024 8:29 PM CDT 09/15/2024 10:00 PM CDT us Christine Rossi MD LAB BLOOD ORDERABLES Final R esult [facility] [place] [address] * (ABNORMAL) CBC with auto differential (09/15/2024 8:29 PM CDT) WBC 6.15 3.80 - 9.90 K/cumm Hgb 13.1 13.0 - 17.5 g/dL [facility] Hct 36.6(L) 38.9 - 50.3 % [facility] Plt 181 150 - 400 K/cumm [facility] MPV 9.3 9.1 - 12.3 fL [facility] RBC 4.06(L) 4.30 - 5.80 M/cumm [facility] MCV 90.1 81.3 - 96.4 fL [facility] MCH 32.3 27.1 - 33.3 pg [facility] MCHC 35.8(H) 32.3 - 35.7 g/dL [facility] RDW CV 13.5 11.1 - 14.9 % [facility] RDW SD 44.7 35.7 - 48.1 fL [facility] NRBC abs 0.00 0.00 - 0.01 K/cumm [facility] Blood 09/15/2024 8:29 PM CDT 09/15/2024 10:00 PM CDT us Christine Rossi MD LAB BLOOD ORDERABLES Final R esult Performing Organization Address [facility] Co de Phone Number [facility] [place] [employer] [place] [address] * Protime-INR (09/15/2024 8:29 PM CDT) PT 12.2 9.7 - 13.0 sec INR 1.13 0.90 - 1.20 [facility] Comment: Interpretive data Oral anticoagulant therapeutic ranges: Venous thromboembolism prophylaxis or treatment: 2.0-3.0 CARDIOLOGY Standard range: 2.0-3.0 High-intensity range: 2.5-3.5 Refer to indication-specific guidelines for appropriate target ranges for prosthetic heart valve replacement. Current interpretive data was last revised on 2019. Blood 09/15/2024 8:29 PM CDT 09/15/2024 9:55 PM CDT us Christine Rossi MD LAB BLOOD ORDERABLES Final R esult Performing Organization Address City/[facility] Co de Phone Number [facility] [place] [employer] [place] [address] * (ABNORMAL) Bilirubin, direct (09/15/2024 8:29 PM CDT) Bilirubin, direct 0.4(H) 0.1 - 0.3 mg/dL Blood 09/15/2024 8:29 PM CDT 09/15/2024 9:58 PM CDT Vince Jacome MD LAB BLOOD ORDERABLES Final Result [facility] [place] [address] * (ABNORMAL) Comprehensive metabolic panel (09/15/2024 8:29 PM CDT) Pathologist [facility] Sodium 139 135 - 145 mmol/L Potassium, pl 3.5 3.3 - 4.9 mmol/L [facility] Chloride 105 97 - 110 mmol/L [facility] CO2 25 22 - 32 mmol/L [facility] Anion gap 9 2 - 15 mmol/L [facility] BUN 17 6 - 25 mg/dL [facility] Creatinine 0.93 0.80 - 1.30 mg/dL [facility] Glucose 191 70 - 199 mg/dL [facility] Comment: Interpretive Data Fasting glucose >/= 126 [...] 2022. Calcium 8.6 8.5 - 10.3 mg/dL [facility] Bilirubin, total 1.2 0.1 - 1.2 mg/dL [facility] Protein, pl 6.0(L) 6.5 - 8.5 g/dL [facility] Albumin 3.6 3.5 - 5.0 g/dL [facility] Alk phos 47 40 - 130 Units/L [facility] ALT 37 7 - 55 Units/L [facility] AST 23 10 - 50 Units/L [facility] Blood 09/15/2024 8:29 PM CDT 09/15/2024 9:58 PM CDT Vince Jacome MD LAB BLOOD ORDERABLES Final Result [facility] [place] [address] * XR Chest 1 View (09/15/2024 5:53 [...] by: Jewels Barrett M.D. us Giulia Gallagher DATA OPERATIONS LEADER IMG XR PROCEDURES Grace l Result * [...] Using ultrasound directed micropuncture technique and 8 Danish 25 cm sheath inserted into the left femoral vein using percutaneous approach. A 12 Danish cook sheath inserted into the right femoral vein using percutaneous approach. Two 6 Danish pro glides were placed prior to sheath insertion. Heparin was administered to maintain ACT of 300 seconds or greater. A balloon tip Arrow catheter was advanced to the right pulmonary artery for O2 saturations and hemodynamics. Imaging was performed via the left femoral vein with a 8 Danish Friend [employer] intracardiac echo system. The interatrial septum was readily crossed with a 1.5 mm J-tip Amplatzer wire and a multipurpose catheter this was exchanged for a 34 mm sizing balloon. Sizing balloon was exchanged for a 12 Danish torque view sheath. 38 mm Amplatzer ASD occluder was deployed after multiple attempts across the interatrial septum. Upon completion of the case the 12 Danish right venous sheath was removed and a Perclose system cinched. The 8 Danish sheath in the left femoral vein was removed with some bleeding that required an additional 6 Danish Angio-Seal to be deployed. Manual compression was [...] inflated until there is no evidence of cxbs-fw-nrphd flow by intra cardiac echo Doppler. Both [...] stable for 20 minutes. A 70 degree ENGLISH projection shows adequate splay anteriorly and compression [...] time, low range (09/15/2024 2:01 PM CDT) [facility] ACT 266(H) 123 - 168 sec POC Performer [id number] [facility] POC Device Number [id number] [facility] Blood 09/15/2024 2:01 PM CDT 09/15/2024 2:01 PM CDT Vince Jacome MD LAB POCT ORDERABLES - DEVIC E Final Result Performing Organization Address City/[facility] Co de Phone Number [facility] Department [place] [employer] [place] [address] * POCT oxyhemoglobin (09/15/2024 1:23 PM CDT) [facility] RN [facility] Oxyhemoglobin 86.3 >=65.0 % RN [facility] Hemoglobin 13.2 13.0 - 17.5 g/dL [facility] RN INTENSIVE CARE UNIT O2 content 15.9 15.0 - 22.0 Vol % [facility] Anatomic Site aPOC Pulm Artery [facility] Blood 09/15/2024 1:23 PM CDT 09/15/2024 1:23 PM CDT Vince Jacome MD LAB POCT ORDERABLES - DEVIC E Final Result Performing Organization Address City/[facility] Co de Phone Number [facility] Department [place] [address] * POCT oxyhemoglobin (09/15/2024 1:23 PM CDT) RN [facility] Oxyhemoglobin 88.2 >=65.0 % RN [facility] Hemoglobin 13.3 13.0 - 17.5 g/dL [facility] RN INTENSIVE CARE UNIT O2 content 16.3 15.0 - 22.0 Vol % [facility] Anatomic Site aPOC Pulm Artery [facility] Blood 09/15/2024 1:23 PM CDT 09/15/2024 1:23 PM CDT Vince Jacome MD LAB POCT ORDERABLES - DEVIC E Final Result Performing Organization Address City/[facility]/ZIP Co de Phone Number [facility] [place] [employer] [place] [address] * (ABNORMAL) POCT Activated clotting time, low range (09/15/2024 1:18 PM CDT) [facility] ACT 287(H) 123 - 168 sec POC Performer [id number] [facility] POC Device Number [id number] [facility] Blood 09/15/2024 1:18 PM CDT 09/15/2024 1:18 PM CDT Vince Jacome MD LAB POCT ORDERABLES - DEVIC E Final Result Performing Organization Address City/[facility]/ZIP Co de Phone Number [facility] [place] [employer] [place] [address] * POCT oxyhemoglobin (09/15/2024 1:17 PM CDT) Pathologist [facility] RN INTENSIVE CARE UNIT Oxyhemoglobin 88.0 >=65.0 % RN [facility] Hemoglobin 13.5 13.0 - 17.5 g/dL [facility] RN INTENSIVE CARE UNIT O2 content 16.5 15.0 - 22.0 Vol % [facility] Anatomic Site aPOC Pulmonary Vein [facility] Blood 09/15/2024 1:17 PM CDT 09/15/2024 1:17 PM CDT Vince Jacome MD LAB POCT ORDERABLES - DEVIC E Final Result Performing Organization Address City/[facility] [place] [address] * POCT oxyhemoglobin (09/15/2024 1:16 PM CDT) RN [facility] Oxyhemoglobin 89.9 >=65.0 % RN [facility] Hemoglobin 13.3 13.0 - 17.5 g/dL [facility] RN INTENSIVE CARE UNIT O2 content 16.7 15.0 - 22.0 Vol % [facility] Anatomic Site aPOC Pulmonary Vein [facility] Blood 09/15/2024 1:16 PM CDT 09/15/2024 1:16 PM CDT Vince Jacome MD LAB POCT ORDERABLES - DEVIC E Final Result Performing Organization Address [facility] Co de Phone Number [facility] [place] [address] * (ABNORMAL) POCT oxyhemoglobin (09/15/2024 1:15 PM CDT) RN [facility] Oxyhemoglobin 81.5 >=65.0 % RN [facility] Hemoglobin 13.2 13.0 - 17.5 g/dL [facility] RN INTENSIVE CARE UNIT O2 content 14.9(L) 15.0 - 22.0 Vol % [facility] Anatomic Site aPOC Ventricle right [facility] Blood 09/15/2024 1:15 PM CDT 09/15/2024 1:15 PM CDT Vince Jacome MD LAB POCT ORDERABLES - DEVIC E Final Result Performing Organization Address City/[facility] Co de Phone Number [facility] [employer] [place] [address] * POCT oxyhemoglobin (09/15/2024 1:15 PM CDT) Pathologist [facility] RN INTENSIVE CARE UNIT Oxyhemoglobin 81.9 >=65.0 % RN [facility]ARE UNIT Hemoglobin 13.3 13.0 - 17.5 g/dL [facility] RN INTENSIVE CARE UNIT O2 content 15.1 15.0 - 22.0 Vol % [facility] Anatomic Site aPOC Ventricle right [facility] Blood 09/15/2024 1:15 PM CDT 09/15/2024 1:15 PM CDT Vince Jacome MD LAB POCT ORDERABLES - DEVIC E Final Result Performing Organization Address City/[facility] Co de Phone Number [facility] [employer] [place] [address] * (ABNORMAL) POCT Activated clotting time, low range (09/15/2024 1:14 PM CDT) [facility] ACT 232(H) 123 - 168 sec POC Performer [id number] [facility] POC Device Number [id number] [facility] Blood 09/15/2024 1:14 PM CDT 09/15/2024 1:14 PM CDT Vince Jacome MD LAB POCT ORDERABLES - DEVIC E Final Result Performing Organization Address [facility] Co de Phone Number [facility] [employer] [place] [address] * (ABNORMAL) POCT oxyhemoglobin (09/15/2024 1:13 PM CDT) [facility] RN INTENSIVE CARE UNIT Oxyhemoglobin 67.1 >=65.0 % RN [facility]ARE UN[facility] Hemoglobin 12.6(L) 13.0 - 17.5 g/dL [facility] RN INTENSIVE CARE UNIT O2 content 11.8(L) 15.0 - 22.0 Vol % [facility] Anatomic Site aPOC Sup Vena Cava [facility] Blood 09/15/2024 1:13 PM CDT 09/15/2024 1:13 PM CDT Vince Jacome MD LAB POCT ORDERABLES - DEVIC E Final Result Performing Organization Address City/[facility]/ZIP [place] [address] * (ABNORMAL) POCT oxyhemoglobin (09/15/2024 1:11 PM CDT) RN [facility] UN[facility] Oxyhemoglobin 64.7(L) >=65.0 % RN [facility] UN[facility] Hemoglobin 12.9(L) 13.0 - 17.5 g/dL [facility] RN INTENSIVE CARE UNIT O2 content 11.6(L) 15.0 - 22.0 Vol % [facility] Anatomic Site aPOC Sup Vena Cava [facility] Blood 09/15/2024 1:11 PM CDT 09/15/2024 1:11 PM CDT Vince Jacome MD LAB POCT ORDERABLES - DEVIC E Final Result Performing Organization Address [facility] [place] [address] * (ABNORMAL) POCT oxyhemoglobin (09/15/2024 1:10 PM CDT) RN [facility] UN[facility] Oxyhemoglobin 75.8 >=65.0 % [facility] Hemoglobin 13.0 13.0 - 17.5 g/dL [facility] O2 content 13.7(L) 15.0 - 22.0 Vol % [facility] Anatomic Site aPOC Atrium Right [facility] Blood 09/15/2024 1:10 PM CDT 09/15/2024 1:10 PM CDT Vince Jacome MD LAB POCT ORDERABLES - DEVIC E Final Result Performing Organization Address City/[facility] Co de Phone Number [facility] [place] [address] * (ABNORMAL) POCT oxyhemoglobin (09/15/2024 1:09 PM CDT) [facility] Oxyhemoglobin 79.4 >=65.0 % [facility] Hemoglobin 13.4 13.0 - 17.5 g/dL [facility] O2 content 14.8(L) 15.0 - 22.0 Vol % [facility] Anatomic Site aPOC Atrium Right [facility] Blood 09/15/2024 1:09 PM CDT 09/15/2024 1:09 PM CDT Vince Jacome MD LAB POCT ORDERABLES - DEVIC E Final Result Performing Organization Address City/[facility]/ZIP Co de Phone Number [facility] [place] [address] * (ABNORMAL) POCT oxyhemoglobin (09/15/2024 1:08 PM CDT) [facility] Oxyhemoglobin 64.2(L) >=65.0 % [facility] Hemoglobin 13.2 13.0 - 17.5 g/dL [facility] O2 content 11.8(L) 15.0 - 22.0 Vol % [facility] Anatomic Site aPOC Inf Vena Cava [facility] Blood 09/15/2024 1:08 PM CDT 09/15/2024 1:08 PM CDT Vince Jacome MD LAB POCT ORDERABLES - DEVIC E Final Result [facility] [employer] [place] [address] * (ABNORMAL) POCT oxyhemoglobin (09/15/2024 1:07 PM CDT) [facility] Oxyhemoglobin 67.0 >=65.0 % [facility] Hemoglobin 13.3 13.0 - 17.5 g/dL [facility] O2 content 12.4(L) 15.0 - 22.0 Vol % [facility] Anatomic Site aPOC Inf Vena Cava [facility] Blood 09/15/2024 1:07 PM CDT 09/15/2024 1:07 PM CDT us Vince Jacome MD LAB POCT ORDERABLES - DEVIC E Final Result Performing Organization Address City/[facility] Co de Phone Number [facility] [place] [address] * eGFR (09/14/2024 8:25 PM CDT) eGFR [...] ORDERABLES Final R esult Performing Organization Address City/[facility]/ZIP Co de Phone Number [facility] [place] [address] * Differential, auto (09/14/2024 8:25 PM CDT) Neutrophil abs 4.05 1.50 - 6.50 K/cumm Imm gran abs 0.02 0.00 - 0.10 K/cumm [facility] Lymphocyte abs 2.34 0.80 - 3.30 K/cumm [facility] Monocyte abs 0.37 0.20 - 0.80 K/cumm [facility] Eosinophil abs 0.02 0.00 - 0.50 K/cumm [facility] Basophil abs 0.06 0.00 - 0.10 K/cumm [facility] Neutrophil pct 59.0 % [facility] Comment: Interpretive Data Percent cell count reference ranges are not reported, since discordance with absolute values may lead to misinterpretation of CBC data. Current Interpretive Data was last revised on 2017. Imm gran pct 0.3 % [facility] Comment: Interpretive Data Percent cell count reference ranges are not reported, since discordance with absolute values may lead to misinterpretation of CBC data. Current Interpretive Data was last revised on 2017. Lymphocyte pct 34.1 % [facility] Comment: Interpretive Data Percent cell count reference ranges are not reported, since discordance with absolute values may lead to misinterpretation of CBC data. Current Interpretive Data was last revised on 2017. Monocyte pct 5.4 % [facility] Comment: Interpretive Data Percent cell count reference ranges are not reported, since discordance with absolute values may lead to misinterpretation of CBC data. Current Interpretive Data was last revised on 2017. Eosinophil pct 0.3 % [facility] Comment: Interpretive Data Percent cell count reference ranges are not reported, since discordance with absolute values may lead to misinterpretation of CBC data. Current Interpretive Data was last revised on 2017. Basophil pct 0.9 % [facility] Comment: Interpretive Data Percent cell count reference ranges are not reported, since discordance with absolute values may lead to misinterpretation of CBC data. Current Interpretive Data was last revised on 2017. Blood 09/14/2024 8:25 PM CDT 09/14/2024 8:44 PM CDT Christine Rossi MD LAB BLOOD ORDERABLES Final R esult Performing Organization Address City/State/[facility] Co de Phone Number [facility] [place] [address] * (ABNORMAL) CBC with auto differential (09/14/2024 8:25 PM CDT) Pathologist [facility] WBC 6.86 3.80 - 9.90 K/cumm Hgb 15.7 13.0 - 17.5 g/dL [facility] Hct 44.7 38.9 - 50.3 % [facility] Plt 196 150 - 400 K/cumm [facility] MPV 8.5(L) 9.1 - 12.3 fL [facility] RBC 4.88 4.30 - 5.80 M/cumm [facility] MCV 91.6 81.3 - 96.4 fL [facility] MCH 32.2 27.1 - 33.3 pg [facility] MCHC 35.1 32.3 - 35.7 g/dL [facility] RDW CV 13.5 11.1 - 14.9 % [facility] RDW SD 45.4 35.7 - 48.1 fL [facility] NRBC abs 0.00 0.00 - 0.01 K/cumm [facility] Blood 09/14/2024 8:25 PM CDT 09/14/2024 8:44 PM CDT us Christine Rossi MD LAB BLOOD ORDERABLES Final R esult Performing Organization Address [facility] Co de Phone Number [facility] Department [place] [employer] [place] [address] * Magnesium (09/14/2024 8:25 PM CDT) Pathologist [facility] Magnesium 2.4 1.4 - 2.5 mg/dL Blood 09/14/2024 8:25 PM CDT 09/14/2024 8:44 PM CDT Christine Rossi MD LAB BLOOD ORDERABLES Final R esult Performing Organization Address City/[facility] Co de Phone Number [facility] [place] [address] * (ABNORMAL) Comprehensive metabolic panel (09/14/2024 8:25 PM CDT) Sodium 141 135 - 145 mmol/L Potassium, pl 4.2 3.3 - 4.9 mmol/L [facility] Chloride 104 97 - 110 mmol/L [facility] CO2 28 22 - 32 mmol/L [facility] Anion gap 9 2 - 15 mmol/L [facility] BUN 12 6 - 25 mg/dL [facility] Creatinine 0.97 0.80 - 1.30 mg/dL [facility] Glucose 98 70 - 199 mg/dL [facility] Comment: Interpretive Data Fasting glucose >/= 126 [...] 2022. Calcium 9.5 8.5 - 10.3 mg/dL [facility] Bilirubin, total 1.3(H) 0.1 - 1.2 mg/dL [facility] Protein, pl 6.9 6.5 - 8.5 g/dL [facility] Albumin 4.4 3.5 - 5.0 g/dL [facility] Alk phos 56 40 - 130 Units/L [facility] ALT 51 7 - 55 Units/L [facility] AST 24 10 - 50 Units/L [facility] Blood 09/14/2024 8:25 PM CDT 09/14/2024 8:44 PM CDT us Christine Rossi MD LAB BLOOD ORDERABLES Final R esult Performing Organization Address City/[facility]/ZIP Co de Phone Number [facility] [place] [address] * POCT glucose (09/14/2024 4:32 PM CDT) Glucose, POC 113 70 - 199 mg/dL Blood 09/14/2024 4:32 PM CDT 09/14/2024 4:32 PM CDT us Christine Rossi MD LAB POCT ORDERABLES - DEVICE Final Result Performing Organization Address City/State/[facility] Co de Phone Number [facility] [place] [address] * POCT glucose (09/13/2024 11:23 AM CDT) [facility] Glucose, POC 78 70 - 199 mg/dL Blood 09/13/2024 11:2 3 AM CDT 09/13/2024 11:23 AM CDT us Christine Rossi MD LAB POCT ORDERABLES - DEVICE Final Result Performing Organization Address City/[facility] Co de Phone Number [facility] [place] [employer] [place] [address] * eGFR (09/12/2024 11:09 PM CDT) [facility] eGFR >90 >=60 mL/min/1. 73 m2 Comment: [...] MD LAB BLOOD ORDERABLES Final R esult [facility] [place] [address] * Differential, auto (09/12/2024 11:09 PM CDT) Neutrophil abs 3.73 1.50 - 6.50 K/cumm Imm gran abs 0.03 0.00 - 0.10 K/cumm [facility] Lymphocyte abs 2.85 0.80 - 3.30 K/cumm [facility] Monocyte abs 0.38 0.20 - 0.80 K/cumm [facility] Eosinophil abs 0.05 0.00 - 0.50 K/cumm [facility] Basophil abs 0.06 0.00 - 0.10 K/cumm [facility] Neutrophil pct 52.6 % [facility] Comment: Interpretive Data Percent cell count reference ranges are not reported, since discordance with absolute values may lead to misinterpretation of CBC data. Current Interpretive Data was last revised on 2017. Imm gran pct 0.4 % [facility] Comment: Interpretive Data Percent cell count reference ranges are not reported, since discordance with absolute values may lead to misinterpretation of CBC data. Current Interpretive Data was last revised on 2017. Lymphocyte pct 40.1 % [facility] Comment: Interpretive Data Percent cell count reference ranges are not reported, since discordance with absolute values may lead to misinterpretation of CBC data. Current Interpretive Data was last revised on 2017. Monocyte pct 5.4 % [facility] Comment: Interpretive Data Percent cell count reference ranges are not reported, since discordance with absolute values may lead to misinterpretation of CBC data. Current Interpretive Data was last revised on 2017. Eosinophil pct 0.7 % [facility] Comment: Interpretive Data Percent cell count reference ranges are not reported, since discordance with absolute values may lead to misinterpretation of CBC data. Current Interpretive Data was last revised on 2017. Basophil pct 0.8 % [facility] Comment: Interpretive Data Percent cell count reference ranges are not reported, since discordance with absolute values may lead to misinterpretation of CBC data. Current Interpretive Data was last revised on 2017. Blood 09/12/2024 11:0 9 PM CDT 09/13/2024 12:27 AM CDT us Christine Rossi MD LAB BLOOD ORDERABLES Final R esult [facility] [place] [address] * CBC with auto differential (09/12/2024 11:09 PM CDT) WBC 7.10 3.80 - 9.90 K/cumm Hgb 14.7 13.0 - 17.5 g/dL [facility] Hct 42.0 38.9 - 50.3 % [facility] Plt 166 150 - 400 K/cumm [facility] MPV 9.1 9.1 - 12.3 fL [facility] RBC 4.57 4.30 - 5.80 M/cumm [facility] MCV 91.9 81.3 - 96.4 fL [facility] MCH 32.2 27.1 - 33.3 pg [facility] MCHC 35.0 32.3 - 35.7 g/dL [facility] RDW CV 13.6 11.1 - 14.9 % [facility] RDW SD 46.3 35.7 - 48.1 fL [facility] NRBC abs 0.00 0.00 - 0.01 K/cumm [facility] Blood 09/12/2024 11:0 9 PM CDT 09/13/2024 12:27 AM CDT us Christine Rossi MD LAB BLOOD ORDERABLES Final R esult [facility] [place] [address] * (ABNORMAL) Comprehensive metabolic panel (09/12/2024 11:09 PM CDT) Sodium 142 135 - 145 mmol/L Potassium, pl 4.4 3.3 - 4.9 mmol/L [facility] Comment:Hemolyzed; Potassium value may be falsely elevated by as much as 0.3-0.5 mmol/L. Suggest redraw and reanalysis. Chloride 107 97 - 110 mmol/L [facility] CO2 27 22 - 32 mmol/L [facility] Anion gap 8 2 - 15 mmol/L [facility] BUN 13 6 - 25 mg/dL [facility] Creatinine 0.94 0.80 - 1.30 mg/dL [facility] Glucose 91 70 - 199 mg/dL [facility] Comment: Interpretive Data Fasting glucose >/= 126 [...] 2022. Calcium 9.2 8.5 - 10.3 mg/dL [facility] Bilirubin, total 0.9 0.1 - 1.2 mg/dL [facility] Protein, pl 6.2(L) 6.5 - 8.5 g/dL [facility] Albumin 3.9 3.5 - 5.0 g/dL [facility] Alk phos 51 40 - 130 Units/L [facility] ALT 48 7 - 55 Units/L [facility] AST 34 10 - 50 Units/L [facility] Comment:Hemolyzed; result ma y be falsely elevated Blood 09/12/2024 11:0 9 PM CDT 09/13/2024 12:25 AM CDT us Christine Rossi MD LAB BLOOD ORDERABLES Final R esult Performing Organization Address [facility] Co de Phone Number [facility] [employer] [place] [address] * POCT glucose (09/12/2024 7:27 AM CDT) Glucose, POC 100 70 - 199 mg/dL Blood 09/12/2024 7:27 AM CDT 09/12/2024 7:27 AM CDT us Christine Rsosi MD LAB POCT ORDERABLES - DEVICE Final Result Performing Organization Address City/[facility] Co de Phone Number [facility] [employer] [place] [address] * POCT glucose (09/12/2024 12:18 AM CDT) [facility] Glucose, POC 108 70 - 199 mg/dL Blood 09/12/2024 12:1 8 AM CDT 09/12/2024 12:18 AM CDT us Christine Rossi MD LAB POCT ORDERABLES - DEVICE Final Result Performing Organization Address City/[facility] Co de Phone Number [facility] [employer] [place] [address] * eGFR (2024 10:15 PM CDT) Pathologist [facility] eGFR 90 >=60 mL/min/1. 73 m2 Comment: [...] MD LAB BLOOD ORDERABLES Final R esult [facility] [place] [address] * Differential, auto (2024 10:15 PM CDT) Neutrophil abs 3.58 1.50 - 6.50 K/cumm Imm gran abs 0.02 0.00 - 0.10 K/cumm [facility] Lymphocyte abs 2.33 0.80 - 3.30 K/cumm [facility] Monocyte abs 0.46 0.20 - 0.80 K/cumm [facility] Eosinophil abs 0.03 0.00 - 0.50 K/cumm [facility] Basophil abs 0.06 0.00 - 0.10 K/cumm [facility] Neutrophil pct 55.2 % [facility] Comment: Interpretive Data Percent cell count reference ranges are not reported, since discordance with absolute values may lead to misinterpretation of CBC data. Current Interpretive Data was last revised on 2017. Imm gran pct 0.3 % [facility] Comment: Interpretive Data Percent cell count reference ranges are not reported, since discordance with absolute values may lead to misinterpretation of CBC data. Current Interpretive Data was last revised on 2017. Lymphocyte pct 36.0 % [facility] Comment: Interpretive Data Percent cell count reference ranges are not reported, since discordance with absolute values may lead to misinterpretation of CBC data. Current Interpretive Data was last revised on 2017. Monocyte pct 7.1 % [facility] Comment: Interpretive Data Percent cell count reference ranges are not reported, since discordance with absolute values may lead to misinterpretation of CBC data. Current Interpretive Data was last revised on 2017. Eosinophil pct 0.5 % [facility] Comment: Interpretive Data Percent cell count reference ranges are not reported, since discordance with absolute values may lead to misinterpretation of CBC data. Current Interpretive Data was last revised on 2017. Basophil pct 0.9 % [facility] Comment: Interpretive Data Percent cell count reference ranges are not reported, since discordance with absolute values may lead to misinterpretation of CBC data. Current Interpretive Data was last revised on 2017. Blood 2024 10:1 5 PM CDT 2024 11:41 PM CDT us Christine Rossi MD LAB BLOOD ORDERABLES Final R esult [facility] [place] [address] * (ABNORMAL) CBC with auto differential (2024 10:15 PM CDT) WBC 6.48 3.80 - 9.90 K/cumm Hgb 13.6 13.0 - 17.5 g/dL [facility] Hct 39.5 38.9 - 50.3 % [facility] Plt 184 150 - 400 K/cumm [facility] MPV 9.4 9.1 - 12.3 fL [facility] RBC 4.29(L) 4.30 - 5.80 M/cumm [facility] MCV 92.1 81.3 - 96.4 fL [facility] MCH 31.7 27.1 - 33.3 pg [facility] MCHC 34.4 32.3 - 35.7 g/dL [facility] RDW CV 13.7 11.1 - 14.9 % [facility] RDW SD 46.2 35.7 - 48.1 fL [facility] NRBC abs 0.00 0.00 - 0.01 K/cumm [facility] Blood 2024 10:1 5 PM CDT 2024 11:41 PM CDT us Christine Rossi MD LAB BLOOD ORDERABLES Final R esult [facility] [place] [address] * (ABNORMAL) Comprehensive metabolic panel (2024 10:15 PM CDT) Sodium 146(H) 135 - 145 mmol/L Potassium, pl 3.9 3.3 - 4.9 mmol/L [facility] Chloride 108 97 - 110 mmol/L [facility] CO2 28 22 - 32 mmol/L [facility] Anion gap 10 2 - 15 mmol/L [facility] BUN 13 6 - 25 mg/dL [facility] Creatinine 0.96 0.80 - 1.30 mg/dL [facility] Glucose 58(L) 70 - 199 mg/dL [facility] Comment: Interpretive Data Fasting glucose >/= 126 [...] 2022. Calcium 9.3 8.5 - 10.3 mg/dL [facility] Bilirubin, total 0.7 0.1 - 1.2 mg/dL [facility] Protein, pl 6.0(L) 6.5 - 8.5 g/dL [facility] Albumin 3.7 3.5 - 5.0 g/dL [facility] Alk phos 49 40 - 130 Units/L [facility] ALT 55 7 - 55 Units/L [facility] AST 37 10 - 50 Units/L [facility] Blood 2024 10:1 5 PM CDT 2024 11:40 PM CDT us Christine Rossi MD LAB BLOOD ORDERABLES Final R esult [facility] [place] [address] * eGFR (09/10/2024 9:17 PM CDT) eGFR [...] MD LAB BLOOD ORDERABLES Final R esult [facility] [place] [address] * Differential, auto (09/10/2024 9:17 PM CDT) Neutrophil abs 4.30 1.50 - 6.50 K/cumm Imm gran abs 0.03 0.00 - 0.10 K/cumm [facility] Lymphocyte abs 2.30 0.80 - 3.30 K/cumm [facility] Monocyte abs 0.46 0.20 - 0.80 K/cumm [facility] Eosinophil abs 0.04 0.00 - 0.50 K/cumm [facility] Basophil abs 0.08 0.00 - 0.10 K/cumm [facility] Neutrophil pct 59.6 % [facility] Comment: Interpretive Data Percent cell count reference ranges are not reported, since discordance with absolute values may lead to misinterpretation of CBC data. Current Interpretive Data was last revised on 2017. Imm gran pct 0.4 % [facility] Comment: Interpretive Data Percent cell count reference ranges are not reported, since discordance with absolute values may lead to misinterpretation of CBC data. Current Interpretive Data was last revised on 2017. Lymphocyte pct 31.9 % [facility] Comment: Interpretive Data Percent cell count reference ranges are not reported, since discordance with absolute values may lead to misinterpretation of CBC data. Current Interpretive Data was last revised on 2017. Monocyte pct 6.4 % [facility] Comment: Interpretive Data Percent cell count reference ranges are not reported, since discordance with absolute values may lead to misinterpretation of CBC data. Current Interpretive Data was last revised on 2017. Eosinophil pct 0.6 % [facility] Comment: Interpretive Data Percent cell count reference ranges are not reported, since discordance with absolute values may lead to misinterpretation of CBC data. Current Interpretive Data was last revised on 2017. Basophil pct 1.1 % [facility] Comment: Interpretive Data Percent cell count reference ranges are not reported, since discordance with absolute values may lead to misinterpretation of CBC data. Current Interpretive Data was last revised on 2017. Blood 09/10/2024 9:17 PM CDT 09/10/2024 9:49 PM CDT us Christine Rossi MD LAB BLOOD ORDERABLES Final R esult Performing Organization Address City/[facility]/ZIP Co de Phone Number [facility] [place] [address] * (ABNORMAL) CBC with auto differential (09/10/2024 9:17 PM CDT) Pathologist [facility] WBC 7.21 3.80 - 9.90 K/cumm Hgb 12.8(L) 13.0 - 17.5 g/dL [facility] Hct 35.5(L) 38.9 - 50.3 % [facility] Plt 158 150 - 400 K/cumm [facility] MPV 9.2 9.1 - 12.3 fL [facility] RBC 3.90(L) 4.30 - 5.80 M/cumm [facility] MCV 91.0 81.3 - 96.4 fL [facility] MCH 32.8 27.1 - 33.3 pg [facility] MCHC 36.1(H) 32.3 - 35.7 g/dL [facility] RDW CV 13.6 11.1 - 14.9 % [facility] RDW SD 45.1 35.7 - 48.1 fL [facility] NRBC abs 0.00 0.00 - 0.01 K/cumm [facility] Blood 09/10/2024 9:17 PM CDT 09/10/2024 9:49 PM CDT us Christine Rossi MD LAB BLOOD ORDERABLES Final R esult [facility] [place] [address] * (ABNORMAL) Comprehensive metabolic panel (09/10/2024 9:17 PM CDT) Pathologist [facility] Sodium 139 135 - 145 mmol/L Potassium, pl 4.2 3.3 - 4.9 mmol/L [facility] Chloride 104 97 - 110 mmol/L [facility] CO2 26 22 - 32 mmol/L [facility] Anion gap 9 2 - 15 mmol/L [facility] BUN 13 6 - 25 mg/dL [facility] Creatinine 0.97 0.80 - 1.30 mg/dL [facility] Glucose 101 70 - 199 mg/dL [facility] Comment: Interpretive Data Fasting glucose >/= 126 [...] 2022. Calcium 8.9 8.5 - 10.3 mg/dL [facility] Bilirubin, total 0.6 0.1 - 1.2 mg/dL [facility] Protein, pl 6.1(L) 6.5 - 8.5 g/dL [facility] Albumin 3.7 3.5 - 5.0 g/dL [facility] Alk phos 48 40 - 130 Units/L [facility] ALT 46 7 - 55 Units/L [facility] AST 44 10 - 50 Units/L [facility] [facility] Blood 09/10/2024 9:17 PM CDT 09/10/2024 9:47 PM CDT us Christine Rossi MD LAB BLOOD ORDERABLES Final R esult [facility] [place] [address] * eGFR (09/09/2024 8:51 PM CDT) eGFR [...] MD LAB BLOOD ORDERABLES Final R esult [facility] [place] [address] * Differential, auto (09/09/2024 8:51 PM CDT) Pathologist [facility] Neutrophil abs 4.72 1.50 - 6.50 K/cumm Imm gran abs 0.02 0.00 - 0.10 K/cumm [facility] Lymphocyte abs 2.31 0.80 - 3.30 K/cumm [facility] Monocyte abs 0.48 0.20 - 0.80 K/cumm [facility] Eosinophil abs 0.02 0.00 - 0.50 K/cumm [facility] Basophil abs 0.07 0.00 - 0.10 K/cumm [facility] Neutrophil pct 61.9 % [facility] Comment: Interpretive Data Percent cell count reference ranges are not reported, since discordance with absolute values may lead to misinterpretation of CBC data. Current Interpretive Data was last revised on 2017. Imm gran pct 0.3 % [facility] Comment: Interpretive Data Percent cell count reference ranges are not reported, since discordance with absolute values may lead to misinterpretation of CBC data. Current Interpretive Data was last revised on 2017. Lymphocyte pct 30.3 % [facility] Comment: Interpretive Data Percent cell count reference ranges are not reported, since discordance with absolute values may lead to misinterpretation of CBC data. Current Interpretive Data was last revised on 2017. Monocyte pct 6.3 % [facility] Comment: Interpretive Data Percent cell count reference ranges are not reported, since discordance with absolute values may lead to misinterpretation of CBC data. Current Interpretive Data was last revised on 2017. Eosinophil pct 0.3 % [facility] Comment: Interpretive Data Percent cell count reference ranges are not reported, since discordance with absolute values may lead to misinterpretation of CBC data. Current Interpretive Data was last revised on 2017. Basophil pct 0.9 % [facility] Comment: Interpretive Data Percent cell count reference ranges are not reported, since discordance with absolute values may lead to misinterpretation of CBC data. Current Interpretive Data was last revised on 2017. Blood 09/09/2024 8:51 PM CDT 09/09/2024 9:27 PM CDT us Christine Rossi MD LAB BLOOD ORDERABLES Final R esult [facility] [place] [address] * (ABNORMAL) CBC with auto differential (09/09/2024 8:51 PM CDT) WBC 7.62 3.80 - 9.90 K/cumm Hgb 15.4 13.0 - 17.5 g/dL [facility] Hct 43.9 38.9 - 50.3 % [facility] Plt 201 150 - 400 K/cumm [facility] MPV 8.9(L) 9.1 - 12.3 fL [facility] RBC 4.75 4.30 - 5.80 M/cumm [facility] MCV 92.4 81.3 - 96.4 fL [facility] MCH 32.4 27.1 - 33.3 pg [facility] MCHC 35.1 32.3 - 35.7 g/dL [facility] RDW CV 13.6 11.1 - 14.9 % [facility] RDW SD 46.1 35.7 - 48.1 fL [facility] NRBC abs 0.00 0.00 - 0.01 K/cumm [facility] Blood 09/09/2024 8:51 PM CDT 09/09/2024 9:27 PM CDT us Christine Rossi MD LAB BLOOD ORDERABLES Final R esult [facility] [place] [address] * Comprehensive metabolic panel (09/09/2024 8:51 PM CDT) Sodium 141 135 - 145 mmol/L Potassium, pl 3.7 3.3 - 4.9 mmol/L [facility] Chloride 104 97 - 110 mmol/L [facility] CO2 25 22 - 32 mmol/L [facility] Anion gap 12 2 - 15 mmol/L [facility] BUN 10 6 - 25 mg/dL [facility] Creatinine 0.96 0.80 - 1.30 mg/dL [facility] Glucose 90 70 - 199 mg/dL [facility] Comment: Interpretive Data Fasting glucose >/= 126 [...] 2022. Calcium 9.5 8.5 - 10.3 mg/dL [facility] Bilirubin, total 1.2 0.1 - 1.2 mg/dL [facility] Protein, pl 7.4 6.5 - 8.5 g/dL [facility] Albumin 4.4 3.5 - 5.0 g/dL [facility] Alk phos 54 40 - 130 Units/L [facility] ALT 33 7 - 55 Units/L [facility] AST 36 10 - 50 Units/L [facility] Blood 09/09/2024 8:51 PM CDT 09/09/2024 9:27 PM CDT us Christine Rossi MD LAB BLOOD ORDERABLES Final R esult [facility] [place] [address] * XR Abdomen Ap 1 Vw (09/09/2024 [...] MD LAB BLOOD ORDERABLES Final R esult [facility] [place] [address] * Differential, auto (09/08/2024 9:37 PM CDT) Neutrophil abs 3.89 1.50 - 6.50 K/cumm Imm gran abs 0.02 0.00 - 0.10 K/cumm [facility] Lymphocyte abs 2.37 0.80 - 3.30 K/cumm [facility] Monocyte abs 0.37 0.20 - 0.80 K/cumm [facility] Eosinophil abs 0.02 0.00 - 0.50 K/cumm [facility] Basophil abs 0.05 0.00 - 0.10 K/cumm [facility] Neutrophil pct 57.9 % [facility] Comment: Interpretive Data Percent cell count reference ranges are not reported, since discordance with absolute values may lead to misinterpretation of CBC data. Current Interpretive Data was last revised on 2017. Imm gran pct 0.3 % [facility] Comment: Interpretive Data Percent cell count reference ranges are not reported, since discordance with absolute values may lead to misinterpretation of CBC data. Current Interpretive Data was last revised on 2017. Lymphocyte pct 35.3 % [facility] Comment: Interpretive Data Percent cell count reference ranges are not reported, since discordance with absolute values may lead to misinterpretation of CBC data. Current Interpretive Data was last revised on 2017. Monocyte pct 5.5 % [facility] Comment: Interpretive Data Percent cell count reference ranges are not reported, since discordance with absolute values may lead to misinterpretation of CBC data. Current Interpretive Data was last revised on 2017. Eosinophil pct 0.3 % [facility] Comment: Interpretive Data Percent cell count reference ranges are not reported, since discordance with absolute values may lead to misinterpretation of CBC data. Current Interpretive Data was last revised on 2017. Basophil pct 0.7 % [facility] Comment: Interpretive Data Percent cell count reference ranges are not reported, since discordance with absolute values may lead to misinterpretation of CBC data. Current Interpretive Data was last revised on 2017. Blood 09/08/2024 9:37 PM CDT 09/08/2024 10:42 PM CDT us Christine Rossi MD LAB BLOOD ORDERABLES Final R esult [facility] [place] [address] * (ABNORMAL) CBC with auto differential (09/08/2024 9:37 PM CDT) WBC 6.72 3.80 - 9.90 K/cumm Hgb 14.8 13.0 - 17.5 g/dL [facility] Hct 41.0 38.9 - 50.3 % [facility] Plt 175 150 - 400 K/cumm [facility] MPV 9.1 9.1 - 12.3 fL [facility] RBC 4.53 4.30 - 5.80 M/cumm [facility] MCV 90.5 81.3 - 96.4 fL [facility] MCH 32.7 27.1 - 33.3 pg [facility] MCHC 36.1(H) 32.3 - 35.7 g/dL [facility] RDW CV 13.2 11.1 - 14.9 % [facility] RDW SD 43.4 35.7 - 48.1 fL [facility] NRBC abs 0.00 0.00 - 0.01 K/cumm [facility] Blood 09/08/2024 9:37 PM CDT 09/08/2024 10:42 PM CDT us Christine Rossi MD LAB BLOOD ORDERABLES Final R esult Performing Organization Address City/[facility]/ZIP Co de Phone Number [facility] [place] [address] * (ABNORMAL) Comprehensive metabolic panel (09/08/2024 9:37 PM CDT) Sodium 139 135 - 145 mmol/L Potassium, pl 4.0 3.3 - 4.9 mmol/L [facility] Chloride 104 97 - 110 mmol/L [facility] CO2 25 22 - 32 mmol/L [facility] Anion gap 10 2 - 15 mmol/L [facility] BUN 12 6 - 25 mg/dL [facility] Creatinine 0.97 0.80 - 1.30 mg/dL [facility] Glucose 88 70 - 199 mg/dL [facility] Comment: Interpretive Data Fasting glucose >/= 126 [...] 2022. Calcium 9.5 8.5 - 10.3 mg/dL [facility] Bilirubin, total 1.9(H) 0.1 - 1.2 mg/dL [facility] Protein, pl 6.8 6.5 - 8.5 g/dL [facility] Albumin 4.4 3.5 - 5.0 g/dL [facility] Alk phos 50 40 - 130 Units/L [facility] ALT 24 7 - 55 Units/L [facility] AST 22 10 - 50 Units/L [facility] Blood 09/08/2024 9:37 PM CDT 09/08/2024 10:41 PM CDT us Christine Rossi MD LAB BLOOD ORDERABLES Final R esult [facility] [place] [address] * TRANSTHORACIC ECHO (TTE) COMPLETE W DOPPLER/CF W CONTRAST (09/08/2024 10:20 AM CDT) EF Mod BP 66 % CONS SCIMAGE Anatomical Region Laterality Modality Ultrasound 09/08/2024 8:44 AM CDT Narrative 09/08/2024 11:28 AM CDT [facility] [place] [address] Transthoracic Echocardiographic Report ADDENDUM Patient Name: MIGUELITO LOPES : 1965 (58y 11m) Gender: M Study Date: 09/08/2024 08:44:44 AM Ht(Inch): 65 Wt(Lb): 121.03 BSA: 1.59 Child Life Therapist: Javi Marte RDCS Location: [id number] Order Provider: CHRISTINE ROSSI Heart Rate: 83 [...] Procedure Note Binu Urban MD - 09/08/2024 [facility] Card[place] [address] Transthoracic Echocardiographic Report ADDENDUM Patient Name: MIGUELITO LOPES : 1965 (58y 11m) Gender: M Study Date: 09/08/2024 08:44:44 AM Ht(Inch): 65 Wt(Lb): 121.03 BSA: 1.59 Child Life Therapist: Javi Marte RDCS Location: [id number] Order Provider:CHRISTINE ROSSI Heart Rate: 83 BMI: [...] - 1.5 ] RWT 0.49 MV Decel Vknl067.89 msec [ 104.00 - 258.00 ] EDV [...] cm [ 1.71 - 5.00 ] RA Siksuv299.51 ml RA Volume Cavts630.47 ml/m2 AoR Diam 2D 3.17 cm [ [...] ORDERABLES Final R esult Performing Organization Address City/[facility]/ZIP Co de Phone Number [facility] [place] [employer] [place] [address] * Magnesium (09/08/2024 5:08 AM CDT) Pathologist [facility] Magnesium 2.4 1.4 - 2.5 mg/dL Blood 09/08/2024 5:08 AM CDT 09/08/2024 5:24 AM CDT us Christine Rossi MD LAB BLOOD ORDERABLES Final R esult Performing Organization Address City/[facility] Co de Phone Number [facility] [place] [employer] [place] [address] * Basic metabolic panel (09/08/2024 5:08 AM CDT) Pathologist [facility] Sodium 140 135 - 145 mmol/L Potassium, pl 3.8 3.3 - 4.9 mmol/L [facility] Chloride 104 97 - 110 mmol/L [facility] CO2 24 22 - 32 mmol/L [facility] Anion gap 12 2 - 15 mmol/L [facility] BUN 12 6 - 25 mg/dL [facility] Creatinine 0.90 0.80 - 1.30 mg/dL [facility] Glucose 103 70 - 199 mg/dL [facility] Comment: Interpretive Data Fasting glucose >/= 126 [...] 2022. Calcium 9.3 8.5 - 10.3 mg/dL [facility] Blood 09/08/2024 5:08 AM CDT 09/08/2024 5:24 AM CDT us Christine Rossi MD LAB BLOOD ORDERABLES Final R esult Performing Organization Address City/[facility]/ZIP Co de Phone Number [facility] [place] [address] * Troponin I high-sensitivity 6-hour (09/07/2024 10:41 PM CDT) Pathologist [facility] Trop I hs 6 <=35 ng/L Comment: Interpretive Data For further hscTnI resources including the diagnostic algorithm and an aid in interpretation, copy and paste this link: https://bjhlab.testcatalog.org/show/hsTrop-[email or web address] Current Interpretive Data last revised 2019. Trop I hs delta See Comment ng/L [facility] Comment:Inappropriate collec tion time to report a delta. Trop I hs pct delta See Comment % [facility] Comment:Inappropriate collec tion time to report a delta. Trop I hs interp See Comment [facility] Comment:Inappropriate collec tion time to report a delta. Blood 09/07/2024 10:4 1 PM CDT 09/07/2024 10:56 PM CDT us Melissa Portillo MD LAB BLOOD ORDERABLES F inal Result Performing Organization Address [facility] Co de Phone Number [facility] [place] [address] * eGFR (09/07/2024 10:41 PM CDT) [facility] eGFR >90 >=60 mL/min/1. 73 m2 Comment: [...] MD LAB BLOOD ORDERABLES Final R esult [facility] [place] [address] * Differential, auto (09/07/2024 10:41 PM CDT) Neutrophil abs 4.41 1.50 - 6.50 K/cumm Imm gran abs 0.02 0.00 - 0.10 K/cumm [facility] Lymphocyte abs 2.24 0.80 - 3.30 K/cumm [facility] Monocyte abs 0.44 0.20 - 0.80 K/cumm [facility] Eosinophil abs 0.01 0.00 - 0.50 K/cumm [facility] Basophil abs 0.06 0.00 - 0.10 K/cumm [facility] Neutrophil pct 61.5 % [facility] Comment: Interpretive Data Percent cell count reference ranges are not reported, since discordance with absolute values may lead to misinterpretation of CBC data. Current Interpretive Data was last revised on 2017. Imm gran pct 0.3 % [facility] Comment: Interpretive Data Percent cell count reference ranges are not reported, since discordance with absolute values may lead to misinterpretation of CBC data. Current Interpretive Data was last revised on 2017. Lymphocyte pct 31.2 % [facility] Comment: Interpretive Data Percent cell count reference ranges are not reported, since discordance with absolute values may lead to misinterpretation of CBC data. Current Interpretive Data was last revised on 2017. Monocyte pct 6.1 % [facility] Comment: Interpretive Data Percent cell count reference ranges are not reported, since discordance with absolute values may lead to misinterpretation of CBC data. Current Interpretive Data was last revised on 2017. Eosinophil pct 0.1 % [facility] Comment: Interpretive Data Percent cell count reference ranges are not reported, since discordance with absolute values may lead to misinterpretation of CBC data. Current Interpretive Data was last revised on 2017. Basophil pct 0.8 % [facility] Comment: Interpretive Data Percent cell count reference ranges are not reported, since discordance with absolute values may lead to misinterpretation of CBC data. Current Interpretive Data was last revised on 2017. Blood 09/07/2024 10:4 1 PM CDT 09/07/2024 10:56 PM CDT us Christine Rossi MD LAB BLOOD ORDERABLES Final R esult [facility] [place] [address] * CBC with auto differential (09/07/2024 10:41 PM CDT) WBC 7.18 3.80 - 9.90 K/cumm Hgb 13.9 13.0 - 17.5 g/dL [facility] Hct 39.4 38.9 - 50.3 % [facility] Plt 175 150 - 400 K/cumm [facility] MPV 9.4 9.1 - 12.3 fL [facility] RBC 4.36 4.30 - 5.80 M/cumm [facility] MCV 90.4 81.3 - 96.4 fL [facility] MCH 31.9 27.1 - 33.3 pg [facility] MCHC 35.3 32.3 - 35.7 g/dL [facility] RDW CV 13.2 11.1 - 14.9 % [facility] RDW SD 43.5 35.7 - 48.1 fL [facility] NRBC abs 0.00 0.00 - 0.01 K/cumm [facility] Blood 09/07/2024 10:4 1 PM CDT 09/07/2024 10:56 PM CDT us Christine Rossi MD LAB BLOOD ORDERABLES Final R esult [facility] [place] [address] * (ABNORMAL) Comprehensive metabolic panel (09/07/2024 10:41 PM CDT) Sodium 141 135 - 145 mmol/L Potassium, pl 4.3 3.3 - 4.9 mmol/L [facility] Comment:Hemolyzed; Potassium value may be falsely elevated by as much as 0.3-0.5 mmol/L. Suggest redraw and reanalysis. Chloride 106 97 - 110 mmol/L [facility] CO2 25 22 - 32 mmol/L [facility] Anion gap 10 2 - 15 mmol/L [facility] BUN 13 6 - 25 mg/dL [facility] Creatinine 0.93 0.80 - 1.30 mg/dL [facility] Glucose 97 70 - 199 mg/dL [facility] Comment: Interpretive Data Fasting glucose >/= 126 [...] 2022. Calcium 9.2 8.5 - 10.3 mg/dL [facility] Bilirubin, total 1.7(H) 0.1 - 1.2 mg/dL [facility] Protein, pl 6.7 6.5 - 8.5 g/dL [facility] Albumin 4.0 3.5 - 5.0 g/dL [facility] Alk phos 49 40 - 130 Units/L [facility] ALT 27 7 - 55 Units/L [facility] AST 33 10 - 50 Units/L [facility] Comment:Hemolyzed; result ma y be falsely elevated Blood 09/07/2024 10:4 1 PM CDT 09/07/2024 10:55 PM CDT us Christine Rossi MD LAB BLOOD ORDERABLES Final R esult Performing Organization Address [facility] Co de Phone Number [facility] Department [place] [employer] [place] [address] * Troponin I high-sensitivity 4-hour (09/07/2024 8:09 PM CDT) Trop I hs 6 <=35 ng/L Comment: Interpretive Data For further hscTnI resources including the diagnostic algorithm and an aid in interpretation, copy and paste this link: https://bjhlab.testcatalog.org/show/hsTrop-[email or web address] Current Interpretive Data last revised 2019. Trop I hs delta 0 ng/L [facility] Trop I hs interp Insignificant [facility] Blood 09/07/2024 8:09 PM CDT 09/07/2024 8:27 PM CDT us Melissa Portillo MD LAB BLOOD ORDERABLES F inal Result Performing Organization Address City/[facility]/ZIP Co de Phone Number [facility] [place] [employer] [place] [address] * Troponin I high-sensitivity 2-hour (09/07/2024 5:58 PM CDT) Trop I hs 5 <=35 ng/L Comment: Interpretive Data For further hscTnI resources including the diagnostic algorithm and an aid in interpretation, copy and paste this link: [email or web address]/show/[email or web address] Current Interpretive Data last revised 2019. Trop I hs delta -1 ng/L [facility] Trop I hs interp Insignificant [facility] Blood 09/07/2024 5:58 PM CDT 09/07/2024 6:08 PM CDT Melissa Portillo MD LAB BLOOD ORDERABLES F inal Result Performing Organization Address [facility] de Phone Number [facility] [place] [employer] [place] [address] * Troponin I high-sensitivity series (baseline, 2hr, 4hr, 6hr) (09/07/2024 3:37 PM CDT) Pathologist [facility] Trop I hs 6 <=35 ng/L Comment: Interpretive Data For further hscTnI resources including the diagnostic algorithm and an aid in interpretation, copy and paste this link: [email or web address]/show/[email or web address] Current Interpretive Data last revised 2019. Blood 09/07/2024 3:37 PM CDT 09/07/2024 3:51 PM CDT Melissa Portillo MD LAB BLOOD ORDERABLES F inal Result Performing Organization Address [facility] Co de Phone Number [facility] [employer] [place] [address] * ECG 12 lead (09/07/2024 2:16 PM CDT) Pathologist [facility] Ventricular Rate EKG/Min 108 BPM [facility] Atrial Rate 141 BPM [facility] QRS-Interval (MSEC) 116 ms [facility] QT-Interval (MSEC) 354 ms [facility] QTc 474 ms [facility] [place] 269 degrees [facility] [place] 53 degrees [facility] Diagnosis Atrial [...] has shortened Confirmed by LARRY LAGOS M.D ([id number]) on 09/09/2024 3:25:45 PM [facility] 09/07/2024 2:16 PM CDT 09/09/2024 3:25 PM CDT us Conner Stovall MD ECG ORDERABLES Final Result [facility] * eGFR (09/06/2024 9:47 PM CDT) eGFR [...] MD LAB BLOOD ORDERABLES Final R esult [facility] [place] [address] * Differential, auto (09/06/2024 9:47 PM CDT) Neutrophil abs 4.88 1.50 - 6.50 K/cumm Imm gran abs 0.03 0.00 - 0.10 K/cumm [facility] Lymphocyte abs 2.82 0.80 - 3.30 K/cumm [facility] Monocyte abs 0.79 0.20 - 0.80 K/cumm [facility] Eosinophil abs 0.03 0.00 - 0.50 K/cumm [facility] Basophil abs 0.05 0.00 - 0.10 K/cumm [facility] Neutrophil pct 56.8 % [facility] Comment: Interpretive Data Percent cell count reference ranges are not reported, since discordance with absolute values may lead to misinterpretation of CBC data. Current Interpretive Data was last revised on 2017. Imm gran pct 0.3 % [facility] Comment: Interpretive Data Percent cell count reference ranges are not reported, since discordance with absolute values may lead to misinterpretation of CBC data. Current Interpretive Data was last revised on 2017. Lymphocyte pct 32.8 % [facility] Comment: Interpretive Data Percent cell count reference ranges are not reported, since discordance with absolute values may lead to misinterpretation of CBC data. Current Interpretive Data was last revised on 2017. Monocyte pct 9.2 % [facility] Comment: Interpretive Data Percent cell count reference ranges are not reported, since discordance with absolute values may lead to misinterpretation of CBC data. Current Interpretive Data was last revised on 2017. Eosinophil pct 0.3 % [facility] [facility] Comment: Interpretive Data Percent cell count reference ranges are not reported, since discordance with absolute values may lead to misinterpretation of CBC data. Current Interpretive Data was last revised on 2017. Basophil pct 0.6 % [facility] Comment: Interpretive Data Percent cell count reference ranges are not reported, since discordance with absolute values may lead to misinterpretation of CBC data. Current Interpretive Data was last revised on 2017. Blood 09/06/2024 9:47 PM CDT 09/06/2024 10:13 PM CDT us Christine Rossi MD LAB BLOOD ORDERABLES Final R esult Performing Organization Address City/[facility]/ZIP Co de Phone Number [facility] [place] [address] * Thyroid Function Frederick (09/06/2024 9:47 PM CDT) [facility] TSH 2.14 0.30 - 4.20 mcIUnit/mL Blood 09/06/2024 9:47 PM CDT 09/06/2024 10:13 PM CDT us Christine Rossi MD LAB BLOOD ORDERABLES Final R esult Performing Organization Address City/[facility] Co de Phone Number [facility] [place] [address] * (ABNORMAL) CBC with auto differential (09/06/2024 9:47 PM CDT) [facility] WBC 8.60 3.80 - 9.90 K/cumm Hgb 15.1 13.0 - 17.5 g/dL [facility] Hct 42.1 38.9 - 50.3 % [facility] Plt 181 150 - 400 K/cumm [facility] MPV 9.0(L) 9.1 - 12.3 fL [facility] RBC 4.69 4.30 - 5.80 M/cumm [facility] MCV 89.8 81.3 - 96.4 fL [facility] MCH 32.2 27.1 - 33.3 pg [facility] MCHC 35.9(H) 32.3 - 35.7 g/dL [facility] RDW CV 13.2 11.1 - 14.9 % [facility] RDW SD 43.3 35.7 - 48.1 fL [facility] NRBC abs 0.00 0.00 - 0.01 K/cumm [facility] Blood 09/06/2024 9:47 PM CDT 09/06/2024 10:13 PM CDT Christine Rossi MD LAB BLOOD ORDERABLES Final R esult Performing Organization Address [facility] de Phone Number [facility] [place] [address] * (ABNORMAL) Protime-INR (09/06/2024 9:47 PM CDT) PT 13.7(H) 9.7 - 13.0 sec INR 1.26(H) 0.90 - 1.20 [facility] Comment: Interpretive data Oral anticoagulant therapeutic ranges: Venous thromboembolism prophylaxis or treatment: 2.0-3.0 CARDIOLOGY Standard range: 2.0-3.0 High-intensity range: 2.5-3.5 Refer to indication-specific guidelines for appropriate target ranges for prosthetic heart valve replacement. Current interpretive data was last revised on 2019. Blood 09/06/2024 9:47 PM CDT 09/06/2024 10:29 PM CDT us Christine Rossi MD LAB BLOOD ORDERABLES Final R esult Performing Organization Address City/[facility] Co de Phone Number [facility] [place] [address] * (ABNORMAL) Comprehensive metabolic panel (09/06/2024 9:47 PM CDT) Sodium 141 135 - 145 mmol/L Potassium, pl 4.3 3.3 - 4.9 mmol/L [facility] Chloride 104 97 - 110 mmol/L [facility] CO2 25 22 - 32 mmol/L [facility] Anion gap 12 2 - 15 mmol/L [facility] BUN 17 6 - 25 mg/dL [facility] Creatinine 0.93 0.80 - 1.30 mg/dL [facility] Glucose 72 70 - 199 mg/dL [facility] Comment: Interpretive Data Fasting glucose >/= 126 [...] 2022. Calcium 9.5 8.5 - 10.3 mg/dL [facility] Bilirubin, total 2.4(H) 0.1 - 1.2 mg/dL [facility] Protein, pl 6.8 6.5 - 8.5 g/dL [facility] Albumin 4.3 3.5 - 5.0 g/dL [facility] Alk phos 52 40 - 130 Units/L [facility] ALT 27 7 - 55 Units/L [facility] AST 27 10 - 50 Units/L [facility] Blood 09/06/2024 9:47 PM CDT 09/06/2024 10:13 PM CDT us Christine Rossi MD LAB BLOOD ORDERABLES Final R esult [facility] [place] [address] * ECG 12 lead (09/06/2024 3:24 PM CDT) Ventricular Rate EKG/Min 96 BPM [facility] Atrial Rate 83 BPM [facility] MS-Interval (MSEC) 94 ms [facility] QRS-Interval (MSEC) 110 ms [facility] QT-Interval (MSEC) 424 ms [facility] QTc 535 ms [facility] P [place] 44 degrees [facility] R [place] -88 degrees [facility] T [place] -13 degrees [facility] Diagnosis Sinus rhythm with short MS with frequent , and consecutive Premature ventricular complexes with junctional escape complexes Left axis deviation Low voltage QRS Incomplete right bundle branch block Prolonged QT Abnormal ECG No previous ECGs available Confirmed by Gregory Gonzalez MD ([id number]) on 2024 2:46:49 PM [facility] 09/06/2024 3:24 PM CDT 2024 2:46 PM CDT us Conner Stovall MD ECG ORDERABLES Final Result Performing Organization Address City/[facility]/ZIP Co de Phone Number [facility] * Lactate (09/06/2024 2:26 PM CDT) [facility] Lactate 2.0 0.7 - 2.0 mmol/L Blood 09/06/2024 2:26 PM CDT 09/06/2024 2:36 PM CDT us Christine Rossi MD LAB BLOOD ORDERABLES Final R esult Performing Organization Address City/[facility] Co de Phone Number [facility] [place] [address] * Respiratory pathogen panel Nasopharyngeal (09/06/2024 9:37 AM CDT) [facility] Influenza A RNA Not Detected Not Detected Influenza B RNA Not Detected Not Detected [facility] RSV RNA Not Detected Not Detected [facility] COVID-19 RNA Not Detected Not Detected [facility] Coronavirus 229E RNA Not Detected Not Detected [facility] Coronavirus HKU1 RNA Not Detected Not Detected [facility] Coronavirus NL63 RNA Not Detected Not Detected [facility] Coronavirus OC43 RNA Not Detected Not Detected [facility] Adenovirus DNA Not Detected Not Detected [facility] Metapneumovirus RNA Not Detected Not Detected [facility] Rhinovirus/Enterov irus RNA Not Detected Not Detected [facility] Parainfluenza 1 RNA Not Detected Not Detected [facility] Parainfluenza 2 RNA Not Detected Not Detected [facility] Parainfluenza 3 RNA Not Detected Not Detected [facility] Parainfluenza 4 RNA Not Detected Not Detected [facility] B. pertussis DNA Not Detected Not Detected [facility] B. parapertussis DNA Not Detected Not Detected [facility] C. pneumoniae DNA Not Detected Not Detected [facility] M. pneumoniae DNA Not Detected Not Detected [facility] Nasopharyngeal 09/06/2024 9: 37 AM CDT 09/06/2024 9:43 AM CDT Narrative [facility] - 09/06/2024 10:36 AM CDT Is the Patient experiencing symptoms consistent with COVID?->No Surveillance testing for transplant patient?->No Interpretive Data The seedchange FilmArray Respiratory Panel (RP2.1) assay is a [...] assay has FDA clearance for testing of DATA OPERATIONS LEADER swabs. The performance of additional specimen types has been assessed by the performing laboratory. The performance characteristics of this assay have been determined by [facility]. Current interpretive data was last revised on 22. Mikki Guzman MD LAB MICROBIOLOGY - GENERA L ORDERABLES Final Result [facility] [place] [address] * (ABNORMAL) Urinalysis reflex to microscopic and culture Urine (09/06/2024 7:03 AM CDT) Color, ur Straw Yellow Clarity, ur Clear Clear [facility] Specific gravity, ur >1.042(H) 1.003 - 1.030 [facility] pH, urine 6.0 [facility] Comment: Interpretive Data U rine pH is affected by diet, medications, systemic acid-base disturbances, and renal tubular function. pH may affect urinary stone formation. For example, urine pH below 6.0 may help reduce the tendency for calcium phosphate stones and pH greater than 6.0 may reduce the tendency for uric acid stone formation. Source: [facility] Current Interpretive Data was last revised on 2017 Protein, ur ql Trace Negative [facility] Glucose, ur ql Negative Negative [facility] Ketones, ur 1+(A) Negative [facility] Bilirubin, ur Negative Negative [facility] Blood, ur Negative Negative [facility] Urobilinogen, ur <2.0 <2.0 mg/dL [facility] Nitrite, ur Negative Negative [facility] Leukocyte esterase, ur Negative Negative [facility] UA reflex comment Reflex conditions for microscopic UA and culture not met. [facility] Urine 09/06/2024 7:03 AM CDT 09/06/2024 7:21 AM CDT us Ravi Weaver MD LAB MICROBIOLOGY - PRX Control SolutionsAL ORDERABLES Final Result [facility] [place] [address] * CT Abdomen Pelvis W Contrast (09/06/2024 [...] BLOOD ORDERABLES Final Result LÁZARO PINEDA [facility] [place] [address] * (ABNORMAL) ECG 12-LEAD (09/06/2024 12:11 AM CDT) Narrative [facility] - 09/06/2024 12:11 AM CDT Anand Swain [...] Ravi Weaver MD ECG ORDERABLES Final Result [facility] * CT Chest PE (CTA) W Contrast [...] Chemistries, Venous - (09/05/2024 10:53 PM CDT) [facility] pH, Mike POC 7.35 7.32 - 7.43 pCO2, mike POC 48 40 - 50 mmHg [facility] pO2, mike POC <20(C) mmHg [facility] Na, POC 139 135 - 145 mmol/L [facility] K POC 4.0 3.3 - 4.9 mmol/L [facility] Comment: Interpretive Data Not all point of care methods assess for hemolysis. Confirm with instrument and retest K+ if not consistent with clinical signs and symptoms. Current Interpretive Data was last revised on 2023. Cl, POC 106 97 - 110 mmol/L [facility] Ionized Ca, POC 4.86 4.50 - 5.10 mg/dL [facility] Glucose, POC 106 70 - 199 mg/dL [facility] Lactate POC 2.4(H) 0.7 - 2.0 mmol/L [facility] MetHb, Mike POC 0.3 0.0 - 1.9 % [facility] O2 Sat, Mike POC (Ra) 22 % [facility] Base excess, POC 0.1 mmol/L [facility] Hct, POC 50.0 41.4 - 51.6 % [facility] Total Hb, POC 16.8 13.8 - 17.2 g/dL [facility] Blood 09/05/2024 10:5 3 PM CDT 09/05/2024 10:53 PM CDT us Lisa Ibarra MD LAB POCT ORDERABLES - DEVICE Final Result Performing Organization Address City/[facility]/ZIP Co de Phone Number [facility] Department [place] [employer] [place] [address] * Troponin I high-sensitivity series (baseline, 2hr, 4hr, 6hr) (09/05/2024 10:51 PM CDT) Trop I hs 12 <=35 ng/L Comment: Interpretive Data For further [facility] resources including the diagnostic algorithm and an aid in interpretation, copy and paste this link: [email or web address]/[email or web address] Current Interpretive Data last revised 2019. Blood 09/05/2024 10:5 1 PM CDT 09/05/2024 11:05 PM CDT us Ravi Weaver MD LAB BLOOD ORDERABLES Final Result Performing Organization Address City/[facility]/ZIP Co de Phone Number [facility] [place] [address] * (ABNORMAL) Lactate (09/05/2024 10:51 PM CDT) Lactate 2.4(H) 0.7 - 2.0 mmol/L Blood 09/05/2024 10:5 1 PM CDT 09/05/2024 11:06 PM CDT Ravi Weaver MD LAB BLOOD ORDERABLES Final Result Performing Organization Address City/[facility]/ZIP Co de Phone Number [facility] Department [place] [employer] [place] [address] * eGFR (09/05/2024 10:51 PM CDT) eGFR [...] PM CDT 09/05/2024 11:05 PM CDT Ravi Weaevr MD LAB BLOOD ORDERABLES Final Result [facility] Department [place] [employer] [place] [address] * Differential, auto (09/05/2024 10:51 PM CDT) Neutrophil abs 5.58 1.50 - 6.50 K/cumm Imm gran abs 0.02 0.00 - 0.10 K/cumm [facility] Lymphocyte abs 1.96 0.80 - 3.30 K/cumm [facility] Monocyte abs 0.53 0.20 - 0.80 K/cumm [facility] Eosinophil abs 0.01 0.00 - 0.50 K/cumm [facility] Basophil abs 0.04 0.00 - 0.10 K/cumm [facility] Neutrophil pct 68.6 % [facility] Comment: Interpretive Data Percent cell count reference ranges are not reported, since discordance with absolute values may lead to misinterpretation of CBC data. Current Interpretive Data was last revised on 2017. Imm gran pct 0.2 % [facility] Comment: Interpretive Data Percent cell count reference ranges are not reported, since discordance with absolute values may lead to misinterpretation of CBC data. Current Interpretive Data was last revised on 2017. Lymphocyte pct 24.1 % [facility] Comment: Interpretive Data Percent cell count reference ranges are not reported, since discordance with absolute values may lead to misinterpretation of CBC data. Current Interpretive Data was last revised on 2017. Monocyte pct 6.5 % [facility] Comment: Interpretive Data Percent cell count reference ranges are not reported, since discordance with absolute values may lead to misinterpretation of CBC data. Current Interpretive Data was last revised on 2017. Eosinophil pct 0.1 % [facility] Comment: Interpretive Data Percent cell count reference ranges are not reported, since discordance with absolute values may lead to misinterpretation of CBC data. Current Interpretive Data was last revised on 2017. Basophil pct 0.5 % [facility] Comment: Interpretive Data Percent cell count reference ranges are not reported, since discordance with absolute values may lead to misinterpretation of CBC data. Current Interpretive Data was last revised on 2017. Blood 09/05/2024 10:5 1 PM CDT 09/05/2024 11:05 PM CDT Ravi Weaver MD LAB BLOOD ORDERABLES Final Result Performing Organization Address City/[facility]/ZIP Co de Phone Number [facility] [place] [address] * (ABNORMAL) Pro B-type natriuretic peptide (09/05/2024 [...] BLOOD ORDERABLES Final Result Performing Organization Address [facility]/ZIP Co de Phone Number [facility] [place] [address] * (ABNORMAL) CBC with auto differential (09/05/2024 10:51 PM CDT) [facility] WBC 8.14 3.80 - 9.90 K/cumm Hgb 16.7 13.0 - 17.5 g/dL [facility] Hct 47.2 38.9 - 50.3 % [facility] Plt 201 150 - 400 K/cumm [facility] MPV 8.9(L) 9.1 - 12.3 fL [facility] RBC 5.20 4.30 - 5.80 M/cumm [facility] MCV 90.8 81.3 - 96.4 fL [facility] MCH 32.1 27.1 - 33.3 pg [facility] MCHC 35.4 32.3 - 35.7 g/dL [facility] RDW CV 13.2 11.1 - 14.9 % [facility] RDW SD 43.7 35.7 - 48.1 fL [facility] NRBC abs 0.00 0.00 - 0.01 K/cumm [facility] Blood 09/05/2024 10:5 1 PM CDT 09/05/2024 11:05 PM CDT Ravi Weaver MD LAB BLOOD ORDERABLES Final Result [facility] [place] [address] * D-dimer, quantitative (09/05/2024 10:51 PM CDT) [facility] D-Dimer 342 <=499 ng/mL FEU Comment: Interpretive [...] BLOOD ORDERABLES Final Result Performing Organization Address City/[facility] [place] [address] * Magnesium (09/05/2024 10:51 PM CDT) Pathologist [facility] Magnesium 2.2 1.4 - 2.5 mg/dL Blood 09/05/2024 10:5 1 PM CDT 09/05/2024 11:05 PM CDT Lisa Ibarra MD LAB BLOOD ORDERABLES Final R esult Performing Organization Address [facility] [place] [address] * Lipase (09/05/2024 10:51 PM CDT) Pathologist [facility] Lipase 52 10 - 99 Units/L Blood 09/05/2024 10:5 1 PM CDT 09/05/2024 11:05 PM CDT Ravi Weaver MD LAB BLOOD ORDERABLES Final Result Performing Organization Address [facility] Co de Phone Number [facility] [place] [address] * Creatine kinase (CK), total (09/05/2024 10:51 PM CDT) Pathologist [facility] CK 118 40 - 300 Units/L Blood 09/05/2024 10:5 1 PM CDT 09/05/2024 11:05 PM CDT Lisa Ibarra MD LAB BLOOD ORDERABLES Final R esult Performing Organization Address [facility] Co de Phone Number [facility] [place] [address] * (ABNORMAL) Bilirubin, direct (09/05/2024 10:51 PM CDT) [facility] Bilirubin, direct 0.5(H) 0.1 - 0.3 mg/dL Blood 09/05/2024 10:5 1 PM CDT 09/05/2024 11:05 PM CDT Christine Rossi MD LAB BLOOD ORDERABLES Final R esult Performing Organization Address [facility] Co de Phone Number [facility] [place] [address] * (ABNORMAL) Comprehensive metabolic panel (09/05/2024 10:51 PM CDT) [facility] Sodium 141 135 - 145 mmol/L Potassium, pl 4.3 3.3 - 4.9 mmol/L [facility] Chloride 103 97 - 110 mmol/L [facility] CO2 25 22 - 32 mmol/L [facility] Anion gap 13 2 - 15 mmol/L [facility] BUN 27(H) 6 - 25 mg/dL [facility] Creatinine 1.19 0.80 - 1.30 mg/dL [facility] Glucose 99 70 - 199 mg/dL [facility] Comment: Interpretive Data Fasting glucose >/= 126 [...] 2022. Calcium 9.9 8.5 - 10.3 mg/dL [facility] Bilirubin, total 2.9(H) 0.1 - 1.2 mg/dL [facility] Protein, pl 7.6 6.5 - 8.5 g/dL [facility] Albumin 4.7 3.5 - 5.0 g/dL [facility] Alk phos 56 40 - 130 Units/L [facility] ALT 29 7 - 55 Units/L [facility] AST 32 10 - 50 Units/L [facility] Blood 09/05/2024 10:5 1 PM CDT 09/05/2024 11:05 PM CDT Ravi Weaver MD LAB BLOOD ORDERABLES Final Result [facility] [place] [address] * (ABNORMAL) ECG 12-LEAD (09/05/2024 10:34 PM CDT) Narrative [facility] - 09/05/2024 10:34 PM CDT Haydee Piedra [...] Lisa Ibarra MD ECG ORDERABLES Final Result [facility] * Hepatitis panel, acute Blood (06/29/2024 11:13 AM CDT) Hep A IgM Nonreactive Nonreactive Hep B core IgM Nonreactive Nonreactive [facility] Hep C Ab Nonreactive Nonreactive [facility] Comment:Antibodies to HCV no t detected. Does NOT exclude the possibility of recent exposure to HCV. Current interpretive data was last revised on 21 HepBsAg Nonreactive Nonreactive [facility] Blood 06/29/2024 11:1 3 AM CDT 06/29/2024 12:25 PM CDT us Samnatha Obrien MD LAB MICROBIOLOGY - GENERAL ORDERABLES Final Result [facility] [place] [address] from Last 3 Months or Most Recently Relevant to Health Maintenance Insurance [facility] MEDICARE ADVANTAGE MEDICARE IDPA MANAGED MEDICARE GENERIC RISK OTHER [facility] MEDICARE ADVANTAGE [facility] MEDICARE ADVANTAGE Advance Directives For more information, please contact: [phone] * Full Code (Latest Code Status on File) Date Activated Date Inactivated Comments 09/06/2024 11:11 AM 09/17/2024 6:58 PM * Full Code Date Activated Date Inactivated Comments 06/28/2024 9:57 PM 06/30/2024 7:14 PM Care Teams Real Estate Office Manager Relationship Specialty Start Date End Date Louis Hewitt MD PCP - General Family Medicine 01/12/20
--- OUTSIDE RECORDS SUMMARY | 2024-11-02 16:47 | XMS_ITS | Encounter Summary ---
Author Organization [facility] Address [address] [place] [address] Phone Care Team Providers Care Lunchroom Monitor Name Role Phone Louis Hewitt MD Primary Care Provider + [phone] Margarita Stoner RN Unavailable [phone] Margarita Stoner RN Unavailable [phone] Encounter Details Date Type Department Care Team (Late st Contact Info) Description 07/18/2023 Orders Only [facility] Scanning, Provider Social History Tobacco Use Types Packs/Day Years Used Date Smoking Tobacco: Never Smokeless Tobacco: Never Sex and Gender Information Value Date Recorded Sex Assigned at Not on file 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
--- OUTSIDE RECORDS SUMMARY | 2024-11-02 16:47 | XMS_ITS | Clinical Summary ---
Author Organization [facility] Address [address] [place] [address] Care Team Providers Care Small Products Assembler Name Role Phone Louis Hewitt MD Primary Care Provider [phone] Source Comments [facility],non-owned Affiliates and Associated Physician Practices is amultiple site organization consisting of ambulatory clinics and hospital sitesin [place], [place], [place] and [place]. This disclosure is being madepursuant to the Care Everywhere program and may not contain all information available regarding this patient. 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
--- OUTSIDE RECORDS SUMMARY | 2024-11-02 16:47 | XMS_ITS | Encounter Summary ---
Author Organization [facility] Address [address] [place] [address] Phone Care Team Providers Care Steel Erecting Pusher Name Role Phone Louis Hewitt MD Primary Care Provider + [phone] Margarita Stoner RN Unavailable [phone] Margarita Stoner RN Unavailable [phone] Encounter Details Date Type Department Care Team (Late st Contact Info) Description 05/08/2023 Orders Only [facility] Scanning, Provider Social History Tobacco Use Types Packs/Day Years Used Date Smoking Tobacco: Never Smokeless Tobacco: Never Sex and Gender Information Value Date Recorded Sex Assigned at Not on file 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
[2024-11-02 17:10] LABS: Hematocrit 44.2 % (42.0-52.0); Hemoglobin 16.0 g/dL (14.0-18.0); Immature Granulocyte Percent A 0.2 % (0-0.5); Lymphocytes Absolute Auto 1.48 K/mm3 (0.9-3.2); Mean Corpuscular HGB Conc 36.2 g/dl (32-36); Mean Corpuscular Hemoglobin 31.7 pg (26-34); Mean Corpuscular Volume 87.7 fl (80-100); Nucleated Red Blood Cells Absolute Auto 0.000 K/mm3 (0.0-0.012); Nucleated Red Blood Cells Perc 0.0 % (0.0-0.2); Platelet Count Result 206 k/mm3 (150-375); Red Blood Count 5.04 M/mm3 (4.6-6.20); White Blood Count 6.5 K/mm3 (4.5-10.0)
[2024-11-02 17:20] LABS: INR 1.1; Partial Thromboplastin Time 29.4 Seconds (22.3-36.8); Prothrombin Time 14.6 Seconds (11.1-14.7)
[2024-11-02 17:21] LABS: Ammonia < 9 umol/L (9-30)
[2024-11-02 17:22] LABS: Alanine Aminotransferase 32 U/L (6-50); Albumin Level 4.5 g/dL (3.5-5.1); Alkaline Phosphatase 88 U/L (38-126); Anion Gap 14 mmol/L (4-12); Aspartate Amino Transferase 49 U/L (17-59); Bilirubin,Total 3.5 mg/dL (0.2-1.3); Blood Urea Nitrogen 32 mg/dL (9-20); Calcium 10.0 mg/dL (8.4-10.2); Carbon Dioxide 23 mmol/L (22-30); Chloride 96 mmol/L (98-107); Estimated CRCL calculation 41 ml/min; Estimated Glomerular Filt Rate > 60; Glucose 92 mg/dL (65-110); Lipase 110 U/L (23-300); Potassium 4.2 mmol/L (3.4-5.0); Sodium 133 mmol/L (137-145); Total Protein 7.5 g/dL (6.3-8.2)
--- NOTE | 2024-11-02 17:28 | ED.GENADULT ---
HPI - General Adult General Chief complaint: Abdominal Pain Stated complaint: abd pain- hast ate in 15 days Time Seen by Provider: 11/02/24 16:29 History of Present Illness HPI narrative: 59-year-old male with history of major depressive disorder, atrial fibrillation, COPD, CHF with history of cardiac radiofrequency ablation presents emergency department for evaluation for decreased p.o. intake that is been worsening over the last 2 months. Patient states he has not eaten much in the last few months but has eaten nothing in the last 15 days. Patient states he has not drank much water and has not been taking his medications. Patient does complain of worsening depression. Patient's brothers did inspire the patient to be evaluated in the emergency department today. Patient is very cachectic appearing he is concerned that he has a bowel obstruction and is not passing stool and this is why he has not been eating. Family states that after the procedure at [facility] approximately 2 months ago the patient had declining health. Family states that the patient had been living on his own but after being discharged from [facility] he then began living with his father and his father helps take care of him. Patient does have a significant past medical history of atrial fibrillation, depression, fatty liver, COPD Related Data Home Medications ?Medication ?Instructions ?Recorded ?Confirmed ?Last Taken ?Type metoprolol succinate 50 mg 50 mg PO DAILY 01/26/22 07/21/24 Unknown History tablet,extended release 24 hr tamsulosin 0.4 mg capsule (Flomax) 0.4 mg PO DAILY 05/04/22 07/21/24 Unknown History Allergies Allergy/AdvReac Type Severity Reaction Status Date / Time ciprofloxacin Allergy Intermediate Rash Verified 11/02/24 16:33 Review of Systems Review of Systems: All systems reviewed & are unremarkable except as noted in HPI and below [facility] Past Medical History Medical History Drug induced myoclonus Myoclonic jerking Butterfly rash Acute otitis media Joint pain Spasm of thoracic back muscle Sinusitis Diarrhea BMI 26.0-26.9,adult 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 Left lower quadrant abdominal pain BMI 25.0-25.9,adult BMI 24.0-24.9, adult Umbilical hernia Non-healing skin lesion Eye injury BMI 21.0-21.9, adult Screen for colon cancer Hematuria BMI 22.0-22.9, adult Patellofemoral syndrome, left Cardiomegaly Steatohepatitis Bladder wall thickening Prostate enlargement COPD (chronic obstructive pulmonary disease) DJD (degenerative joint disease) of cervical spine Rotator cuff tear Left inguinal hernia Abdominal hernia Anxiety disorder, unspecified Atrial fibrillation and flutter Congestive heart failure, unspecified Fatty liver Lumbar spondylosis Pulmonary emphysema Surgical History Surgical History H/O cardiac radiofrequency ablation H/O colonoscopy History of bladder surgery ablation History of vasectomy History of knee surgery History of bunionectomy History of inguinal hernia repair History of umbilical hernia repair Family History Family History Father No problems noted. Mother Thyroid activity decreased Fatty liver Stage 2 liver disease Sibling , covid-19 COVID-19 Other Diabetes mellitus Family history of coronary artery disease Family history of malignant neoplasm Hypertension Social History Social History Smoking status: Never smoker Second hand tobacco smoke exposure: Yes Alcohol intake: never Substance use: current Substance use type: marijuana Other substance usage details: OCCASIONAL Do You Feel Safe in your Home?: Yes Lack of Transportation: No Lack of Food: Never True Current Housing: I Have Housing Concerned About Future Housing: No Difficulty Paying Gas/Electric Bills: YES Difficulty Paying for Meds: No Currently Unemployed: No Education: High School Diploma/GED Difficulty w/ Childcare or Family Care: No Living arrangements: alone Additional living arrangements comments: is . 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 Gender identity (if verbalized by the patient): Male Spiritual care concerns: No Exam Narrative: APPEARANCE: Very cachectic appearing HEAD: normocephalic, atraumatic. EYES: PERRLA/EOMI, conjunctivae clear. NOSE: Normal no drainage EARS:TMS clear with good light reflex. THROAT: Pharynx clear, no exudate. NECK: Supple. No adenopathy, no masses. RESPIRATORY: Airway patent, respirations nonlabored. Clear to auscultation bilaterally, no rales, rhonchi, wheezing. CARDIOVASCULAR: Regular rate and rhythm without murmurs rubs or gallops. ABDOMINAL: Soft, nontender, nondistended, normal bowel sounds MUSCULOSKELETAL: Atrophy NEURO: Alert. Cranial nerves II through XII intact. Good gait. Good coordination SKIN: Warm, dry. Normal Color PSYCHIATRIC: Flat affect Course Vital Signs Vital signs: Vital Signs Temperature 97.6 F 11/02/24 15:38 Pulse Rate 116 H 11/02/24 15:38 Respiratory Rate 20 11/02/24 15:38 Blood Pressure 105/75 11/02/24 15:38 Pulse Oximetry 96 11/02/24 15:38 Oxygen Delivery Room Air 11/02/24 15:38 Temperature 97.6 F 11/02/24 15:38 Pulse Rate 82 11/02/24 19:05 Respiratory Rate 13 11/02/24 19:05 Blood Pressure 110/86 11/02/24 19:05 Pulse Oximetry 98 11/02/24 19:05 Oxygen Delivery Room Air 11/02/24 16:29 Medical Decision Making MDM Narrative Medical decision making narrative: 59-year-old male present to the emergency department for evaluation for failure to thrive and decreased p.o.. Patient has had decreased p.o. intake for the last few months but worsened over the last 2 weeks. Patient reports he has not had anything to eat over the last 2 weeks and has had very little water to drink. Does have history of depression. Patient is currently afebrile with no leukocytosis,hemoglobin of 16.0. No significant acute abnormalities on his CMP ammonia is less than 9. Patient does have an elevated proBNP at 1800, lipase is negative. CT abdomen pelvis does show esophagitis/gastritis. CT scan is concerning for a lesion at the pancreatic head and does recommend MRCP. We discussed the case with the hospitalist for admission for further evaluation for decreased p.o. intake. Differential Diagnosis Differential Diagnosis: Gastritis, esophagitis, depression, colitis, pancreatitis, bowel obstruction, cancer Vital Signs Vital Signs: Vital Signs Temperature 97.6 F 11/02/24 15:38 Pulse Rate 116 H 11/02/24 15:38 Respiratory Rate 20 11/02/24 15:38 Blood Pressure 105/75 11/02/24 15:38 Pulse Oximetry 96 11/02/24 15:38 Oxygen Delivery Room Air 11/02/24 15:38 Temperature 97.6 F 11/02/24 15:38 Pulse Rate 82 11/02/24 19:05 Respiratory Rate 13 11/02/24 19:05 Blood Pressure 110/86 11/02/24 19:05 Pulse Oximetry 98 11/02/24 19:05 Oxygen Delivery Room Air 11/02/24 16:29 Lab Data Lab results reviewed: Yes I reviewed the patient's lab results. 11/02/24 17:00 11/02/24 17:00 Labs: Lab Results 11/02/24 Range/Units 17:00 WBC 6.5 (4.5-10.0) K/mm3 RBC 5.04 (4.6-6.20) M/mm3 Hgb 16.0 (14.0-18.0) g/dL Hct 44.2 (42.0-52.0) % MCV 87.7 (80-100) fl MCH 31.7 (26-34) pg MCHC 36.2 H (32-36) g/dl RDW 13.5 (11.5-14.5) % Plt Count 206 (150-375) k/mm3 MPV 10.0 (7.4-10.4) fl Immature Gran % (Auto) 0.2 (0-0.5) % Neut % (Auto) 70.3 (45.5-73.1) % Lymph % (Auto) 22.9 (18.3-44.2) % Liberty % (Auto) 6.6 (2.6-8.5) % Eos % (Auto) 0.0 (0-4.4) % Baso % (Auto) 0.0 L (0.2-1.2) % Lymph # (Auto) 1.48 (0.9-3.2) K/mm3 Liberty # (Auto) 0.4 (0.1-0.6) K/mm3 Eos # (Auto) 0.0 (0-0.3) K/mm3 Baso # (Auto) 0.0 (0.0-0.1) K/mm3 Abs Immat Gran (auto) 0.01 (0.00-0.031) K/mm3 Absolute Neuts (auto) 4.6 (1.3-6.7) K/mm3 Absolute Nucleated RBC 0.000 (0.0-0.012) K/mm3 Nucleated RBC % 0.0 (0.0-0.2) % PT 14.6 (11.1-14.7) Seconds INR 1.1 APTT 29.4 (22.3-36.8) Seconds Sodium 133 L (137-145) mmol/L Potassium 4.2 (3.4-5.0) mmol/L Chloride 96 L (98-107) mmol/L Carbon Dioxide 23 (22-30) mmol/L Anion Gap 14 H (4-12) mmol/L BUN 32 H (9-20) mg/dL Creatinine 1.04 (0.7-1.3) mg/dL Estim Creat Clear Calc 41 ml/min Estimated GFR > 60 (59 - ) Glucose 92 (65-110) mg/dL Lactic Acid 1.9 (0.7-2.0) mmol/L Calcium 10.0 (8.4-10.2) mg/dL Total Bilirubin 3.5 H (0.2-1.3) mg/dL AST 49 (17-59) U/L ALT 32 (6-50) U/L Alkaline Phosphatase 88 (38-126) U/L Ammonia < 9 L (9-30) umol/L Total Creatine Kinase 120 (55-170) U/L NT-Pro-B Natriuret Pep 1830 H (19.9-100) pg/mL Total Protein 7.5 (6.3-8.2) g/dL Albumin 4.5 (3.5-5.1) g/dL Lipase 110 (23-300) U/L Imaging Data Radiologist's impression: Impressions Abdomen/Pelvis CT 11/02/24 19:52 IMPRESSION: Right ventricular and right atrial enlargement. Decreased cardiac output may be present given the late arterial appearance of these portal venous timed images. Moderate esophagitis/gastritis. Specific heterogeneity in the medial right hepatic lobe. Possible 14 mm pancreatic head or ampullary lesion. Recommend MR/MRCP of the abdomen without and with contrast for further evaluation of these findings. Consider GI consultation for potential ERCP. Very mild extra hepatic bile duct dilation. Discharge Plan Discharge Clinical Impression: Decreased oral intake, Adult failure to thrive Patient Disposition: Still a Patient Condition: Serious Instructions: Antibiotic Form Patient Language: Citizen Of [place] Prescriptions: No Action tamsulosin [Flomax] 0.4 mg capsule 0.4 mg PO DAILY mirtazapine 15 mg tablet 15 mg PO QHS Qty: 30 1RF metoprolol succinate 50 mg tablet extended release 24 hr 50 mg PO DAILY hydroxyzine HCl 25 mg tablet 25 mg PO QID PRN (Reason: anxiety) Qty: 120 0RF polyethylene glycol 3350 17 gram/dose powder 17 g PO BID Qty: 119 0RF docusate sodium 100 mg capsule 100 mg PO BID Qty: 60 0RF amoxicillin-pot clavulanate 875-125 mg tablet 1 tablet PO Q12H Qty: 14 0RF doxycycline monohydrate 100 mg capsule 100 mg PO BID Qty: 14 0RF albuterol sulfate 90 mcg/actuation HFA aerosol inhaler 2 inh inhalation Q6H PRN (Reason: shortness of breath or wheezing) Qty: 8.5 2RF Eliquis 5 mg tablet 5 mg PO BID Qty: 180 0RF Narcan 4 mg/actuation spray,non-aerosol 4 mg NASAL Q2-3M PRN (Reason: opioid overdose) Qty: 2 0RF Rx Instructions: spray 1 dose into ONE nostril; alternate nostrils w each dose until help arrives Follow-up/Referrals: Louis Hewitt MD [Primary Care Provider] -
[2024-11-02] MEDS: LACTATED RINGERS 1,000 ML 999 ML IV CONT ×2 (17:30)
[2024-11-02 17:31] LABS: NT Pro B Type Natriuretic Pept 1830 pg/mL (19.9-100)
[2024-11-02 17:40] LABS: Creatine Kinase 120 U/L (55-170)
[2024-11-02 19:05] VITALS: BP 110/86; PULSE 82; RESP 13; O2SAT 98
--- NOTE | 2024-11-02 19:22 | PC.NURSE ---
Report received from RAFAELA Chavira. Assumed care of patient at this time.
--- NOTE | 2024-11-02 19:22 | PC.NURSE ---
Report received from RAFAELA Chavira. Assumed care of patient at this time.
[2024-11-02] MEDS: PANTOPRAZOLE SODIUM IV 40 MG VIAL IV PUSH (20:47)
[2024-11-02 21:06] VITALS: BP 118/88; PULSE 91; RESP 17; O2SAT 100
--- NOTE | 2024-11-02 21:19 | ADMGEN ---
This patient, Miguelito Lopes, was admitted to Medical Room 249-01. Patient/family oriented to hospital policies and general routines including ID bracelet, bed and alarms, visiting hours, pain management, procedures, bathroom and other care routines, personal items, smoking policy, room service/diet, and visiting hours. Information on how to activate the Rapid Response Team has been discussed. Patient/Family are encouraged to report perceived risks to care and to ask questions if they do not understand what they are told or what they should do.
[2024-11-02 21:28] VITALS: BP 107/76; PULSE 72; RESP 16; TEMP 36.6; O2SAT 98; BMI 16.2
--- NOTE | 2024-11-02 21:42 | P.HP_ITS ---
H&P: HPI History of Present Illness Date/Time: 11/02/24 21:42 Chief Complaint: Abdominal pain/weakness/weight loss Narrative: This is a 59-year-old male patient who appears older than stated age with past medical history of depression, atrial fibrillation status post radioablation at [facility] 2 months ago, COPD, heart failure, chronic pain and BPH who presents to the emergency room accompanied by his 2 brothers after they encouraged him to come for complaints decreased p.o. intake for the past 2 months stating he is ?unable to swallow and therefore has not been eating for several weeks or drinking very much. Patient recently had to move in with his father for his father to take care of him. Patient endorses a 10 lb weight loss over the past couple of weeks but his brother's endorse to 50 lb lost over the course of the past couple of months citing that his normal weight is in the 150s and he presents today weighing 95 lb. Patient reports that his stomach feels tight whenever he attempts to eat and he has pain. He is concerned he may have a bowel obstruction as he has not been bowel movements. He has a history of hernia surgeries x3 and stated he had a colonoscopy years ago although he cannot remember why. He denies having any vomiting/nausea/melanous appearing stools or hematochezia. He denies having any fever he just reports that he cannot swallow or eat. It is noted that he states he feels as though his depression is worse. He denies any SI or HI. He cannot identify any stressful factor causing his depression to worsen. Patient reports he does not partake of any nicotine, alc ohol or illicit drugs. Workup in the emergency room consisted of labs and imaging. CBC unremarkable with no elevation WBCs and normal H&H. Metabolic panel also unremarkable with normal electrolytes. BNP is 1800, lipase is negative and ammonia is less than 9. CT abdomen and pelvis was performed showing moderate gastritis/esophagitis and patient received Protonix IV in the emergency room. 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 MRCP is suggested and will be ordered. Patient is being admitted in the current setting of dysphagia and potential failure to thrive for swallow evaluation and or GI evaluation with further workup. All questions answered to his and his brother satisfaction prior to being admitted. Review of Systems Review of Systems: All systems reviewed & are unremarkable except as noted in HPI and below PMFSH Past Medical History Medical History (Updated 11/02/24 @ 22:03 by MAXWELL Adkins) Pancreatic lesion Esophagitis Dysphagia Drug induced myoclonus Myoclonic jerking Butterfly rash Acute otitis media Joint pain Spasm of thoracic back muscle Sinusitis Diarrhea BMI 26.0-26.9,adult 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 Left lower quadrant abdominal pain BMI 25.0-25.9,adult BMI 24.0-24.9, adult Umbilical hernia Non-healing skin lesion Eye injury BMI 21.0-21.9, adult Screen for colon cancer Hematuria BMI 22.0-22.9, adult Patellofemoral syndrome, left Cardiomegaly Steatohepatitis Bladder wall thickening Prostate enlargement COPD (chronic obstructive pulmonary disease) DJD (degenerative joint disease) of cervical spine Rotator cuff tear Left inguinal hernia Abdominal hernia Anxiety disorder, unspecified Atrial fibrillation and flutter Congestive heart failure, unspecified Fatty liver Lumbar spondylosis Pulmonary emphysema Surgical History Surgical History H/O cardiac radiofrequency ablation H/O colonoscopy History of bladder surgery ablation History of vasectomy History of knee surgery History of bunionectomy History of inguinal hernia repair History of umbilical hernia repair Family History Family History Father No problems noted. Mother Thyroid activity decreased Fatty liver Stage 2 liver disease Sibling , covid-19 COVID-19 Other Diabetes mellitus Family history of coronary artery disease Family history of malignant neoplasm Hypertension Social History Social History Smoking status: Never smoker Second hand tobacco smoke exposure: Yes Alcohol intake: never Substance use: current Substance use type: marijuana Other substance usage details: OCCASIONAL Do You Feel Safe in your Home?: Yes Lack of Transportation: No Lack of Food: Never True Current Housing: I Have Housing Concerned About Future Housing: No Difficulty Paying Gas/Electric Bills: YES Difficulty Paying for Meds: No Currently Unemployed: No Education: High School Diploma/GED Difficulty w/ Childcare or Family Care: No Living arrangements: alone Additional living arrangements comments: is . 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 Gender identity (if verbalized by the patient): Male Spiritual care concerns: No Meds Home Medications and Allergies Home Medications ?Medication ?Instructions ?Recorded ?Confirmed ?Type metoprolol succinate 50 mg 50 mg PO DAILY 01/26/22 07/21/24 History tablet,extended release 24 hr tamsulosin 0.4 mg capsule (Flomax) 0.4 mg PO DAILY 05/04/22 07/21/24 History albuterol sulfate 90 mcg/actuation 2 inh inhalation Q6H PRN shortness 12/12/22 07/21/24 Rx aerosol inhaler of breath or wheezing #8.5 grams apixaban 5 mg tablet (Eliquis) 5 mg PO BID #180 tabs 08/03/23 07/21/24 Rx docusate sodium 100 mg capsule 100 mg PO BID #60 caps 10/02/24 Rx doxycycline monohydrate 100 mg 100 mg PO BID #14 caps 10/02/24 Rx capsule acetaminophen 500 mg capsule 1,000 mg PO Q6H PRN pain 11/02/24 11/02/24 History aspirin 81 mg capsule 81 mg PO DAILY 11/02/24 11/02/24 History clopidogrel 75 mg tablet 75 mg PO DAILY 11/02/24 11/02/24 History fluticasone fur. 100 mcg-umeclid 1 inh inhalation DAILY 11/02/24 11/02/24 History 62.5 mcg-vilant 25 mcg inhalat.powder (Trelegy Ellipta) sennosides 8.6 mg capsule (senna) 17.2 mg PO DAILY 11/02/24 11/02/24 History Allergies Allergy/AdvReac Type Severity Reaction Status Date / Time ciprofloxacin Allergy Intermediate Rash Verified 11/02/24 16:33 Vital Signs Vital Signs - 24 hr 11/02/24 15:38 11/02/24 16:29 11/02/24 19:05 Temperature 97.6 F Pulse Rate 116 H 115 H 82 Respiratory Rate 20 16 13 Blood Pressure 105/75 105/80 110/86 Pulse Oximetry 96 100 98 Oxygen Delivery Room Air Room Air 11/02/24 21:06 11/02/24 21:28 Temperature 97.8 F Pulse Rate 91 72 Respiratory Rate 17 16 Blood Pressure 118/88 107/76 Pulse Oximetry 100 98 Oxygen Delivery Exam Const: General: no acute distress Other: Cachectic and very thin, emaciated male pt lying supine at this time. HENMT: Face/Nose/Sinus: Normal nares present Mouth: Yes dry mucous membranes Eyes: General: appearance normal, both eyes and all related structures Sclera: sclerae normal Pupils: Equal, round and reactive pupils present EOM: EOMs intact bilaterally Neck: Neck: supple and no JVD Thyroid: thyroid normal Lymphatic: lymphadenopathy not noted Resp: Effort & Inspection: normal respiratory effort Auscultation: clear to auscultation bilaterally Cardio: Rate: regular rate Rhythm: regular rhythm Heart sounds: no gallops, no murmurs and no rubs GI: GI Palp: Yes Soft to palpation and Yes Tenderness to palpation present (GI) (Periumbilical) Auscultation: normal bowel sounds Skin: General skin exam: normal color and no rashes or lesions noted Lesions: no lesions noted Rashes: rashes noted Wounds: no wounds Neuro: Speech: normal speech Motor exam (neuro): 5/5 motor strength present throughout and Normal motor muscle tone present throughout Sensory Exam: normal sensation Extrem: General: normal to inspection, no edema and no pedal edema Psych: Mental Status: mental status grossly normal Affect: Sad affect present (flat) Thought content: No Suicidality present and Yes Depressive thoughts present H&P: Results Labs Labs: Short CBC 11/02/24 Range/Units 17:00 WBC 6.5 (4.5-10.0) K/mm3 Hgb 16.0 (14.0-18.0) g/dL Hct 44.2 (42.0-52.0) % Plt Count 206 (150-375) k/mm3 BMP 11/02/24 17:00 Sodium 133 L Potassium 4.2 Chloride 96 L Carbon Dioxide 23 BUN 32 H Creatinine 1.04 Glucose 92 Calcium 10.0 Cardiac Enzymes 11/02/24 Range/Units 17:00 Total Creatine Kinase 120 (55-170) U/L Liver Function 11/02/24 Range/Units 17:00 Total Bilirubin 3.5 H (0.2-1.3) mg/dL AST 49 (17-59) U/L ALT 32 (6-50) U/L Alkaline Phosphatase 88 (38-126) U/L Albumin 4.5 (3.5-5.1) g/dL Assessment and Plan Assessment and plan (1) Dysphagia: Code(s): R13.10 - Dysphagia, unspecified Status: Acute Assessment and Plan: * Structural verses functional * NPO * Speech evaluation with swallow eval * Consult GI * Normal saline 100 mL/hour for hydration * Hold po meds in current setting of dysphagia. May resume once pt is tolerating po treatment. Please note I have held his Eliquis/plavix/asa in case he will need EGD. (2) Adult failure to thrive: Code(s): R62.7 - Adult failure to thrive Status: Acute Assessment and Plan: * Acute weight loss according to pt's brothers of 50+ lb over the course of past of months citing his normal weight is in the 150s and he is weighing tonight and 95lb. * Patient cites he cannot eat due to feeling that he has difficulty swallowing and it elicits abdominal pain. * Will consult dietitian * Speech evaluation for swallow eval * Consult GI * Continue IV fluids of normal saline at 100 mL/hour for hydration * Daily weight * Check multiple labs including TSH, vitamin B12, folic acid, vitamin-D along with a.m. labs * Monitor and trend vital signs and labs * NPO pending swallow eval (3) Esophagitis: Code(s): K20.90 - Esophagitis, unspecified without bleeding Status: Acute Assessment and Plan: * Protonix 40 mg IV push daily * GI consult * NPO (4) Pancreatic lesion: Code(s): K86.9 - Disease of pancreas, unspecified Status: Acute Assessment and Plan: * As noted per CT scan a 14 mm pancreatic head or ampullary lesion is present. * MRCP abdomen ordered. (5) MDD (major depressive disorder): Code(s): F32.9 - Major depressive disorder, single episode, unspecified Status: Chronic Assessment and Plan: * Patient not currently medicated for depression. * Recommend initiating treatment with SSRI once patient has passed swallow evaluation. * He is not experiencing any suicidal ideation. (6) Pulmonary emphysema: Qualifiers: Emphysema type: unspecified Qualified Code(s): J43.9 - Emphysema, uns pecified Code(s): J43.9 - Emphysema, unspecified Status: Chronic Assessment and Plan: * Continue trelegy and albuterol Quality VTE Prophylaxis VTE prophylaxis: mechanical ordered Hospitalist MIPS Advance Care Plan I have confirmed that the patient's Advanced Care Plan is present, code status is documented, or surrogate decision maker is listed in patient medical record.: Yes Medication Reconciliation I have utilized all available resources to obtain, update and review the patients current medications (includes all prescriptions, OTC, herbals, cannabis, and nutritional supplements).: Yes
[2024-11-02] MEDS: SODIUM CHLORIDE 0.9% IV 1,000 ML 100 ML IV CONT (22:20)
[2024-11-03] VITALS (12 sets, daily range): BP systolic 106–112; BP diastolic 71–86; PULSE 60–98; RESP 14–20; TEMP 36.2–36.6; O2SAT 92–100; BMI 16.2
--- NOTE | 2024-11-03 | ECHO_ITS ---
Patient Info Name: Miguelito Lopes Age: 59 years : 1965 Gender: Male Ht: 65 in Wt: 97 lbs BSA: 1.41 m2 HR: 60 bpm BP: 106 / 71 mmHg Heart Rhythm: Atrial Fibrillation Technical Quality: Fair Exam Date: 11/03/2024 12:34 PM Patient Status: I Admit Date: 11/03/2024 Exam Type: CA echo doppler color flow Complete two-dimensional, color flow and Doppler transthoracic echocardiogram is performed. Staff Referring Physician: Vivian Whitaker Legal Officer: Nikki Flores Attending Provider: Chico Arroyo MD Summary 1. Complete two-dimensional, color flow and Doppler transthoracic echocardiogram is performed. 2. Left ventricular chamber dimension is normal. 3. Left ventricular systolic function is normal, estimated at 55-60. 4. The left ventricular diastolic function is normal. 5. E/e' 7 is not elevated. 6. Atrial fibrillation. 7. Left atrial chamber dimension is mildly enlarged. 8. Right atrial chamber dimension is mildly enlarged. 9. There is mild aortic valve sclerosis. 10. There is mild tricuspid valve regurgitation. 11. No pulmonary hypertension, estimated pulmonary arterial systolic pressure is 20 mmHg. 12. There is small pericardial effusion located to right of heart measured at 0.9 cm. Left Ventricle E/e' 7 is not elevated. Left ventricular chamber dimension is normal. Left ventricular systolic function is normal, estimated at 55-60. The left ventricular diastolic function is normal. Atrial fibrillation. Right Ventricle Right ventricular chamber dimension is normal. Right ventricular systolic function is normal. Left Atria Left atrial chamber dimension is mildly enlarged. Right Atria Right atrial chamber dimension is mildly enlarged. Aortic Valve The aortic valve is probable trileaflet. There is mild aortic valve sclerosis. There is no aortic valve stenosis. There is no aortic valve regurgitation. Pulmonic Valve There is no pulmonic regurgitation. Mitral Valve There is no mitral valve stenosis. There is no mitral valve regurgitation. Tricuspid Valve There is mild tricuspid valve regurgitation. No pulmonary hypertension, estimated pulmonary arterial systolic pressure is 20 mmHg. Pericardium/Pleural There is small pericardial effusion located to right of heart measured at 0.9 cm. No cardiac tamponade. Inferior Vena Cava Normal inferior vena cava with >50% collapse upon inspiration consistent with normal right atrial pressure, 5 mmHg. Aorta The aortic root size at the sinus of Valsalva is normal. Left Ventricular Outflow Tract Name Value Normal LVOT Doppler LVOT Peak Velocity 63 cm/s LVOT Peak Gradient 1 mmHg LVOT Mean Gradient 0 mmHg LVOT VTI 9 cm LVOT VTI/AV VTI Ratio 0.3 Pulmonic Valve Name Value Normal RVOT Doppler RVOT Peak Velocity 84 cm/s RVOT Peak Gradient 1 mmHg PV Doppler PV Peak Velocity 71 cm/s PV Peak Gradient 2 mmHg Mitral Valve Name Value Normal MV Diastolic Function MV E Peak Velocity 54 cm/s MV A Peak Velocity 1 cm/s MV E/A 85.6 MV Decel Time (PW) 139 ms MV Annular TDI MV E/e' (Septal) 8.0 MV E/e' (Lateral) 6.1 MV E/e' (Average) 7.1 Tricuspid Valve Name Value Normal TV Regurgitation Doppler TR Peak Velocity 193 cm/s TR Peak Gradient 12 mmHg Estimated PAP/RSVP RA Pressure 5 mmHg <=5 PA Systolic Pressure 20 mmHg <36 RV Systolic Pressure 20 mmHg <36 TV Annular TDI TV Lateral Chery s' Velocity 4.4 cm/s >=9.5 Aortic Valve Name Value Normal AV Doppler AV Peak Velocity 186 cm/s AV Peak Gradient 14 mmHg AV Mean Gradient 6 mmHg AV VTI 35 cm AV DI (Jah) 0.34 Ventricles Name Value Normal LV Dimensions 2D/MM IVS Diastolic Thickness (2D) 0.8 cm 0.6-1.0 LVID Diastole (2D) 4.5 cm 4.2-5.8 LVIW Diastolic Thickness (2D) 0.8 cm 0.6-1.0 LVID Systole (2D) 2.9 cm 2.5-4.0 LV Mass (2D Cubed) 107.07 g 88.00-224.00 LV Mass Index (2D Cubed) 76 g/m2 49-115 Relative Wall Thickness (2D) 0.34 <=0.42 LV Fractional Shortening/Ejection Fraction 2D/MM LV Fractional Shortening (2D) 35 % 25-43 LV EF (2D Teichholz) 64 % Atria Name Value Normal LA Dimensions LA Volume (4C A-L) 51 ml RA Dimensions RA Area (4C) 25.3 cm2 <=18.0 Report Signatures
[2024-11-03 00:22] LABS: Thyroid Stimulating Hormone Reflex 1.490 uIU/mL (0.465-4.68)
[2024-11-03 00:29] LABS: Vitamin B12 > 1000.0 pg/mL (239-931)
[2024-11-03 05:22] LABS: Hematocrit 44.9 % (42.0-52.0); Hemoglobin 14.9 g/dL (14.0-18.0); Immature Granulocyte Percent A 0.4 % (0-0.5); Immature Platelet Fraction Pct 4.6 % (0.9-11.2); Lymphocytes Absolute Auto 1.77 K/mm3 (0.9-3.2); Mean Corpuscular HGB Conc 33.2 g/dl (32-36); Mean Corpuscular Hemoglobin 32.3 pg (26-34); Mean Corpuscular Volume 97.2 fl (80-100); Nucleated Red Blood Cells Absolute Auto 0.000 K/mm3 (0.0-0.012); Nucleated Red Blood Cells Perc 0.0 % (0.0-0.2); Platelet Count Result 118 k/mm3 (150-375); Red Blood Count 4.62 M/mm3 (4.6-6.20); White Blood Count 5.3 K/mm3 (4.5-10.0)
[2024-11-03 05:32] LABS: INR 1.2; Prothrombin Time 15.0 Seconds (11.1-14.7)
[2024-11-03 05:34] LABS: Partial Thromboplastin Time 33.8 Seconds (22.3-36.8)
[2024-11-03 05:47] LABS: Alanine Aminotransferase 23 U/L (6-50); Albumin Level 3.5 g/dL (3.5-5.1); Alkaline Phosphatase 68 U/L (38-126); Anion Gap 12 mmol/L (4-12); Aspartate Amino Transferase 40 U/L (17-59); Bilirubin,Total 3.3 mg/dL (0.2-1.3); Blood Urea Nitrogen 24 mg/dL (9-20); Calcium 9.0 mg/dL (8.4-10.2); Carbon Dioxide 18 mmol/L (22-30); Chloride 102 mmol/L (98-107); Estimated CRCL calculation 53 ml/min; Estimated Glomerular Filt Rate > 60; Glucose 73 mg/dL (65-110); Magnesium 2.3 mg/dL (1.6-2.3); Potassium 3.9 mmol/L (3.4-5.0); Sodium 132 mmol/L (137-145); Total Protein 6.3 g/dL (6.3-8.2)
--- NOTE | 2024-11-03 06:55 | P.PNIM_ITS ---
Progress Note: A&P Assessment and Plan (1) Dysphagia: Code(s): R13.10 - Dysphagia, unspecified Status: Acute Assessment and Plan: -Structural verses functional -NPO -Speech evaluation with swallow eval - planning for MBS today - consult GI -Normal saline 100 mL/hour for hydration -Hold po meds in current setting of dysphagia. May resume once pt is tolerating po treatment. Eliquis/plavix/asa in case he will need EGD. (2) Adult failure to thrive: Code(s): R62.7 - Adult failure to thrive Status: Acute Assessment and Plan: -Acute weight loss according to pt's brothers of 50+ lb over the course of past of months citing his normal weight is in the 150s, currently 95 lbs -Patient states he cannot eat due to feeling that he has difficulty swallowing and it elicits abdominal pain. -Will consult dietitian -Speech evaluation for swallow eval -Continue IV fluids of normal saline at 100 mL/hour for hydration -Daily weight -Monitor and trend vital signs and labs -NPO pending swallow eval (3) Esophagitis: Code(s): K20.90 - Esophagitis, unspecified without bleeding Status: Acute Assessment and Plan: -CT showed moderate esophagitis/gastritis - Protonix 40 mg IV push daily - GI consult -NPO (4) Pancreatic lesion: Code(s): K86.9 - Disease of pancreas, unspecified Status: Acute Assessment and Plan: -As noted per CT scan a 14 mm pancreatic head or ampullary lesion is present. - bilirubin 3.3 -MRCP abdomen ordered. (5) MDD (major depressive disorder): Code(s): F32.9 - Major depressive disorder, single episode, unspecified Status: Chronic Assessment and Plan: -Patient not currently medicated for depression. -Recommend initiating treatment with SSRI once patient has passed swallow evaluation. -He is not experiencing any suicidal ideation. (6) Pulmonary emphysema: Qualifiers: Emphysema type: unspecified Qualified Code(s): J43.9 - Emphysema, unspecified Code(s): J43.9 - Emphysema, unspecified Status: Chronic Assessment and Plan: Continue trelegy and albuterol (7) Atrial fibrillation: Code(s): I48.91 - Unspecified atrial fibrillation Status: Acute Assessment and Plan: - on Elilucyis - held for work-up - continue metoprolol (8) Thrombocytopenia: Code(s): D69.6 - Thrombocytopenia, unspecified Status: Acute Assessment and Plan: - plt 118 - monitor CBC (9) Elevated brain natriuretic peptide (BNP) level: Code(s): R79.89 - Other specified abnormal findings of blood chemistry Status: Acute Assessment and Plan: - CT showed right ventricular and right atrial enlargement, decreased cardiac output may be present (10) Vitamin D deficiency: Code(s): E55.9 - Vitamin D deficiency, unspecified Status: Acute Assessment and Plan: - start PO supplementation when able to take PO (11) Chronic HFrEF (heart failure with reduced ejection fraction): Code(s): I50.22 - Chronic systolic (congestive) heart failure Status: Acute Assessment and Plan: - per history, EF is 40-45% - continue home metoprolol, not on ACEi/ARB? Patient has been noncompliant with meds - also had recent closure of hole in the heart a few months ago per brother (12) Prostate enlargement: Code(s): N40.0 - Benign prostatic hyperplasia without lower urinary tract symptoms Status: Acute Assessment and Plan: - noted on admit CT - patient having urinary hesitancy and pain - check UA, bladder scan (13) Steatohepatitis: Code(s): K75.81 - Nonalcoholic steatohepatitis (LAMB) Status: Acute Assessment and Plan: - per history - monitor LFTs Subjective Date/time seen: 11/03/24 06:55 Interval history: 59-year-old male patient who appears older than stated age with past medical history of depression, atrial fibrillation status post radioablation at [place] 2 months ago, COPD, heart failure, chronic pain and BPH who presents to the emerge ncy room accompanied by his 2 brothers after they encouraged him to come for complaints decreased p.o. intake for the past 2 months stating he is ?unable to swallow and therefore has not been eating for several weeks or drinking very much. Patient seen and examined at bedside with brother. Patient confirmed history of progressive unintentional weight loss. States he is having difficulty swallo wing solids and liquids. He is not able to ambulate due to weakness. Review of Systems Review of Systems: All systems reviewed & are unremarkable except as noted in HPI and below Exam Narrative: General: frail, cachectic, appears older than stated age Eyes: EOMI ENT: neck supple Cardiovascular: Regular rate and rhythm Respiratory: Clear to auscultation, respirations even and unlabored on RA Gastrointestinal: Soft, non tender Genitourinary: no suprapubic tenderness Musculoskeletal: No edema, muscle wasting Skin: warm, dry Neuro: Alert. Psych: Mood appropriate Objective Data Vital Signs Vital Signs: Vital Signs - 24 hr 11/02/24 15:38 11/02/24 16:29 11/02/24 19:05 Temperature 97.6 F Pulse Rate 116 H 115 H 82 Respiratory Rate 20 16 13 Blood Pressure 105/75 105/80 110/86 Pulse Oximetry 96 100 98 Oxygen Delivery Room Air Room Air 11/02/24 21:06 11/02/24 21:28 11/03/24 00:00 Temperature 97.8 F Pulse Rate 91 72 74 Respiratory Rate 17 16 Blood Pressure 118/88 107/76 Pulse Oximetry 100 98 Oxygen Delivery 11/03/24 04:00 11/03/24 05:18 Temperature 97.8 F Pulse Rate 63 69 Respiratory Rate 16 Blood Pressure 106/71 Pulse Oximetry 94 Oxygen Delivery Intake/Output Intake/Output: Intake & Output 10/31/24 11/01/24 11/02/24 11/03/24 23:59 23:59 23:59 23:59 Intake Total 1999 Output Total 300 Balance 2000 -300 Meds/Results Medications: Active Medications Generic Name Dose Route Start Last Admin Trade Name Freq PRN Reason Stop Dose Admin Albuterol 2 puff 11/02/24 21:58 Albuterol Sulfate (*Sp) Aerosol 1 Puff INHALATION Q6HRT PRN shortness of breath or wheezing Fluticasone/Umeclidinium/Vilanterol 1 puff 11/03/24 08:00 Fluticasone/Umeclidin/Vilanter 100-62.5-25 Mcg Ellipta INHALATION DAILYRT [facility] Sodium Chloride 1,000 mls @ 100 mls/hr 11/02/24 22:00 11/02/24 22:20 Normal Saline Iv IV CONT 100 mls/hr .Q10H FRANCISCO Administration Metoprolol Succinate 50 mg 11/03/24 21:00 Metoprolol Succinate Ext Rel 50 Mg Tabcr PO HS FRANCISCO Pantoprazole Sodium 40 mg 11/03/24 09:00 Pantoprazole Sodium Iv 40 Mg Vial IV PUSH QAM [facility] Radiology Results: ITS Impressions Abdomen/Pelvis CT 11/02/24 19:52 IMPRESSION: Right ventricular and right atrial enlargement. Decreased cardiac output may be present given the late arterial appearance of these portal venous timed images. Moderate esophagitis/gastritis. Specific heterogeneity in the medial right hepatic lobe. Possible 14 mm pancreatic head or ampullary lesion. Recommend MR/MRCP of the abdomen without and with contrast for further evaluation of these findings. Consider GI consultation for potential ERCP. Very mild extra hepatic bile duct dilation. Labs Labs: Laboratory Results - last 24 hr 11/02/24 11/03/24 17:00 04:54 WBC 6.5 5.3 RBC 5.04 4.62 Hgb 16.0 14.9 Hct 44.2 44.9 MCV 87.7 97.2 D MCH 31.7 32.3 MCHC 36.2 H 33.2 RDW 13.5 13.5 Plt Count 206 118 L MPV 10.0 10.9 H Immature Gran % (Auto) 0.2 0.4 Neut % (Auto) 70.3 61.5 Lymph % (Auto) 22.9 33.5 [place] % (Auto) 6.6 4.2 Eos % (Auto) 0.0 0.0 Baso % (Auto) 0.0 L 0.4 Lymph # (Auto) 1.48 1.77 [place] # (Auto) 0.4 0.2 Eos # (Auto) 0.0 0.0 Baso # (Auto) 0.0 0.0 Abs Immat Gran (auto) 0.01 0.02 Absolute Neuts (auto) 4.6 3.3 Absolute Nucleated RBC 0.000 0.000 Nucleated RBC % 0.0 0.0 % Immature Plt Fraction 4.6 PT 14.6 15.0 H INR 1.1 1.2 APTT 29.4 33.8 Sodium 133 L 132 L Potassium 4.2 3.9 Chloride 96 L 102 Carbon Dioxide 23 18 L Anion Gap 14 H 12 BUN 32 H 24 H Creatinine 1.04 0.81 Estim Creat Clear Calc 41 53 Estimated GFR > 60 > 60 Glucose 92 73 Lactic Acid 1.9 Calcium 10.0 9.0 Phosphorus 2.7 Magnesium 2.3 Total Bilirubin 3.5 H 3.3 H AST 49 40 ALT 32 23 Alkaline Phosphatase 88 68 Ammonia < 9 L Total Creatine Kinase 120 NT-Pro-B Natriuret Pep 1830 H Total Protein 7.5 6.3 Albumin 4.5 3.5 Lipase 110 Vitamin B12 > 1000.0 H Vitamin D 25-Hydroxy 15.3 Folate 11.2 TSH (Reflex) 1.490 Quality VTE Prophylaxis VTE prophylaxis: mechanical ordered
--- NOTE | 2024-11-03 07:06 | ECG_ITS ---
Test Date: 2024-11-03 09:50:57 Measurements Intervals [place] Rate: 84 P: 0 IA: 0 QRS: 260 QRSD: 171 T: 70 QT: 400 QTc: 475 Interpretive Statements ATRIAL FIBRILLATION RIGHT AXIS DEVIATION RIGHT BUNDLE BRANCH BLOCK ABNORMAL ECG Compared to ECG 10/02/2024 12:38:06 NO SIGNIFICANT CHANGE Electronically Signed On 11-03-2024 09:59:47 CDT by Ney Wright D.O.
--- NOTE | 2024-11-03 08:06 | P.CONGI_ITS ---
Assessment and Plan Assessment and plan (1) Dysphagia: Qualifiers: Dysphagia type: esophageal phase Qualified Code(s): R13.19 - Other dysphagia Code(s): R13.10 - Dysphagia, unspecified Status: Acute (2) Esophagitis: Code(s): K20.90 - Esophagitis, unspecified without bleeding Status: Acute (3) Gastric wall thickening: Code(s): K31.89 - Other diseases of stomach and duodenum Status: Acute (4) Weight loss, non-intentional: Code(s): R63.4 - Abnormal weight loss Status: Acute (5) Depression: Qualifiers: Active/Remission status: currently active Depression Type: major depressive disorder Major depression episode severity: mild Major depression recurrence: recurrent Qualified Code(s): F33.0 - Major depressive disorder, recurrent, mild Code(s): F32.A - Depression, unspecified Status: Acute (6) Adult failure to thrive: Code(s): R62.7 - Adult failure to thrive Status: Acute (7) Pancreatic mass: Code(s): K86.89 - Other specified diseases of pancreas Status: Acute (8) Elevated bilirubin: Code(s): R17 - Unspecified jaundice Status: Acute Plan 1. Dysphagia/weight loss/failure to thrive/esophagitis/gastritis: CT showed moderate distal esophageal and gastric wall edema. CTA done 10/02/2024 showed fecal stasis but no other findings to explain patients symptoms. Patient states that baseline weight is around 150 lbs but this admission is a 95 lbs. Health has been declining over the past 2 months since he had a cardiac ablation done at [place] around 2 months ago. He admits to swallowing difficulty and had not been eating or drinking hardly anything. Admits to sensation of abdominal distention after eating so he was concerned that he had a bowel obstruction so was avoiding eating for this reason also. Bedside swallow study was unremarkable but patient complained of globus sensation after testing was completed. Barium swallow/ Xray showed mild esophageal dysmotility with some tertiary contractions in mid to distal esophagus and upright with all PO intake recommended by ST but no further ST services warranted at this time. DDX: Motility disorder vs esophagitis vs esophageal ring or structure vs functional. * Continue PPI * swallowing difficulty likely related to esophageal dysmotility and tertiary contraction that were noted on swallow study. May consider EGD evaluation if symptoms presist to follow up on inflammation noted in the esophagus and stomach but will hold off until MRCP is completed in the event that further intervention is required 2. Pancreatic mass: CT showed specific heterogeneity in the medial right hepatic lobe. Possible 14 mm pancreatic head or ampullary lesion, these findings were not seen on CTA or CT done 10/02/2024. * MRCP has been ordered but will not be completed today due to MRI maintenance being performed * CA 19-9 and CEA ordered 3. Elevated bilirubin: LFT's normal except elevated bilirubin at 3.3. No known history of Gilbert's. CT showed very mild extra hepatic bile duct dilation and stable mild heterogeneity in the right liver lobe * Elevation may be secondary to calorie depravation * direct and indirect bilirubin ordered Thank you very much for allowing me to share in the care of this very nice patient. This report may have been done utilizing a voice recognition system. Attempts have been made to correct errors. However, there may be uncorrected grammatical, spelling, and recognition errors present. GI Consult Note Consult date/time: 11/03/24 08:06 Reason for consult: Dysphagia HPI: Miguelito Lopes is a 59 year old male with past medical surgical history of depression, AFib on Plavix and aspirin, COPD, CHF, history of cardiac ablation 2 months ago, cardiomegaly, fatty liver, BPH, pulmonary emphysema, history of umbilical and inguinal hernia repair. He presented to the emergency room 11/02/2024 for decreased p.o. intake. GI has been consulted for dysphagia, esophagitis and gastritis. Patient complains of an umbilical abdominal pain that he described as a constant knotting sensation that has been occurring for few months. This pain has no correlation with food intake or bowel movements. He complains of intermittent dysphagia with solids, liquids and pills that has been occurring for few months. Patient states that he has had a poor appetite that has been worse since his cardiac ablation 2 months ago but states that his appetite was also poor prior to surgery. He has had a considerable weight loss with his baseline weight typically in the 150s and this admission around 95 lb. Patient states that he has not had a bowel movement in a few weeks but is passing gas regularly. He denies nausea, vomiting, bloating, odynophagia, reflux, regurgitation, diarrhea, hematochezia, or melena. Patient on aspirin 81 mg and Plavix daily. Patient states that ?his uncle's? on his mother's side had pancreatic cancer but he was unable to say exactly who had cancer. ENDOSCOPY HISTORY: EGD: Per patient if he had an EGD was > 10 years ago COLONOSCOPY: 09/19/[address] Banerjee for CRC screening Findings: Normal colonoscopy 10 year repeat recommended LABS AND STOOL STUDIES: Labs 11/03/2024: Sodium 132, potassium 3.9, BUN 24, creatinine 0.81, GFR >60, calcium 9.0 WBC 5, Hgb 15, Hct 45, MCV 97, platelets 118 Total bilirubin 3.3, AST 40, ALT 23, Alkaline Phos 68, albumin 3.5 Ammonia <9, B12 >1000, folate 11.2 and TSH 1.490 IMAGING: Barium swallow Xray 11/03/2024: IMPRESSION: 1. Mild esophageal dysmotility with some tertiary contractions in mid to distal esophagus. Otherwise unremarkable esophagram with no masses or strictures. Modified barium swallow 11/03/2024: IMPRESSION: Patient tolerated regular consistency oral feedings in the upright position. Please correlate with speech pathologist findings and specific feeding recommendations. Recommendations: 1. Regular, Level 7 and Thin liquids, Level 1 2. Upright with all PO, small bites and sips 3. No further ST services warranted at this time. CT abd/pelvis w/contrast 11/02/2024: IMPRESSION: Right ventricular and right atrial enlargement. Decreased cardiac output may be present given the late arterial appearance of these portal venous timed images. Moderate esophagitis/gastritis. Specific heterogeneity in the medial right hepatic lobe. Possible 14 mm pancreatic head or ampullary lesion. Recommend MR/MRCP of the abdomen without and with contrast for further evaluation of these findings. Consider GI consultation for potential ERCP. Very mild extra hepatic bile duct dilation. CTA abd/pelvis 10/02/2024: IMPRESSION: Significant fecal stasis within the colon, consistent with patient's history. No contrast extravasation identified on the current examination. Abdominal MRI 03/10/2024: IMPRESSION: 1. Supraumbilical ventral hernia containing fat. Review of Systems 2 Constitutional: Constitutional: Reports as per HPI, Reports fatigue and Reports lethargy ENT: Reports as per HPI and Reports dysphagia Cardiovascular: Cardiovascular: Reports as per HPI, Denies chest pain and Denies dyspnea Respiratory: Respiratory: Denies cough and Denies dyspnea Gastrointestinal: Gastrointestinal: Reports as per HPI Musculoskeletal: Musculoskeletal: Reports as per HPI Integumentary/Breasts: Skin/Breast: Reports as per HPI Psychiatric: Psychiatric: Reports as per HPI and Reports depression Endocrine: Endocrine: Reports no additional endocrine complaints Hematologic/Lymphatic: Hematologic/Lymphatic: Reports no additional hematologic/lymphatic complaints [facility] Past Medical History Medical History (Updated 11/03/24 @ 13:23 by Vivian Whitaker, PHARMACY SERVICES REPRESENTATIVE) Pancreatic lesion Esophagitis Dysphagia Drug induced myoclonus Myoclonic jerking Butterfly rash Acute otitis media Joint pain Spasm of thoracic back muscle Sinusitis Diarrhea BMI 26.0-26.9,adult 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 Left lower quadrant abdominal pain BMI 25.0-25.9,adult BMI 24.0-24.9, adult Umbilical hernia Non-healing skin lesion Eye injury BMI 21.0-21.9, adult Screen for colon cancer Hematuria BMI 22.0-22.9, adult Patellofemoral syndrome, left Cardiomegaly Steatohepatitis Bladder wall thickening Prostate enlargement COPD (chronic obstructive pulmonary disease) DJD (degenerative joint disease) of cervical spine Rotator cuff tear Left inguinal hernia Abdominal hernia Anxiety disorder, unspecified Atrial fibrillation and flutter Congestive heart failure, unspecified Fatty liver Lumbar spondylosis Pulmonary emphysema Surgical History Surgical History H/O cardiac radiofrequency ablation H/O colonoscopy History of bladder surgery ablation History of vasectomy History of knee surgery History of bunionectomy History of inguinal hernia repair History of umbilical hernia repair Family History Family History Father No problems noted. Mother Thyroid activity decreased Fatty liver Stage 2 liver disease Sibling , covid-19 COVID-19 Other Diabetes mellitus Family history of coronary artery disease Family history of malignant neoplasm Hypertension Social History Social History Smoking status: Never smoker Second hand tobacco smoke exposure: Yes Alcohol intake: never Substance use: never Substance use type: marijuana Other substance usage details: OCCASIONAL Do You Feel Safe in your Home?: Yes Lack of Transportation: No Lack of Food: Never True Current Housing: I Have Housing Concerned About Future Housing: No Difficulty Paying Gas/Electric Bills: No Difficulty Paying for Meds: No Currently Unemployed: No Education: High School Diploma/GED Difficulty w/ Childcare or Family Care: No Living arrangements: alone Additional living arrangements comments: is . 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 Gender identity (if verbalized by the patient): Male Spiritual care concerns: No Meds Home Medications and Allergies Home Medications ?Medication ?Instructions ?Recorded ?Confirmed ?Type metoprolol succinate 50 mg 50 mg PO HS 01/26/22 11/02/24 History tablet,extended release 24 hr tamsulosin 0.4 mg capsule (Flomax) 0.4 mg PO HS 05/04/22 11/02/24 History albuterol sulfate 90 mcg/actuation 2 inh inhalation Q6H PRN shortness 12/12/22 11/02/24 Rx aerosol inhaler of breath or wheezing #8.5 grams apixaban 5 mg tablet (Eliquis) 5 mg PO BID #180 tabs 08/03/23 11/02/24 Rx docusate sodium 100 mg capsule 100 mg PO BID #60 caps 10/02/24 11/02/24 Rx doxycycline monohydrate 100 mg 100 mg PO BID #14 caps 10/02/24 11/02/24 Rx capsule acetaminophen 500 mg capsule 1,000 mg PO Q6H PRN pain 11/02/24 11/02/24 History aspirin 81 mg capsule 81 mg PO DAILY 11/02/24 11/02/24 History clopidogrel 75 mg tablet 75 mg PO DAILY 11/02/24 11/02/24 History fluticasone fur. 100 mcg-umeclid 1 inh inhalation DAILY 11/02/24 11/02/24 History 62.5 mcg-vilant 25 mcg inhalat.powder (Trelegy Ellipta) sennosides 8.6 mg capsule (senna) 17.2 mg PO DAILY 11/02/24 11/02/24 History Allergies Allergy/AdvReac Type Severity Reaction Status Date / Time ciprofloxacin Allergy Intermediate Rash Verified 11/02/24 16:33 Vital Signs Vital Signs - 24 hr 11/02/24 15:38 11/02/24 16:29 11/02/24 19:05 Temperature 97.6 F Pulse Rate 116 H 115 H 82 Respiratory Rate 20 16 13 Blood Pressure 105/75 105/80 110/86 Pulse Oximetry 96 100 98 Oxygen Delivery Room Air Room Air 11/02/24 21:06 11/02/24 21:28 11/03/24 00:00 Temperature 97.8 F Pulse Rate 91 72 74 Respiratory Rate 17 16 Blood Pressure 118/88 107/76 Pulse Oximetry 100 98 Oxygen Delivery 11/03/24 04:00 11/03/24 05:18 Temperature 97.8 F Pulse Rate 63 69 Respiratory Rate 16 Blood Pressure 106/71 Pulse Oximetry 94 Oxygen Delivery Exam 2 Const: General: cooperative, comfortable, no acute distress, well developed, ill appearing, cachectic and underweight Orientation/consciousness: oriented to person, oriented to place, oriented to time and patient oriented x3 HENMT: Head: normal to inspection, normocephalic and atraumatic Mouth: Yes Normal oral and palatal mucosa present and Yes moist mucous membranes Eyes: General: appearance normal, both eyes and all related structures C onjunctivae: conjunctivae normal Sclera: sclerae normal Pupils: Equal, round and reactive pupils present Neck: Neck: normal visual inspection Chest: Chest palpation & inspection: normal inspection of the chest Resp: Effort & Inspection: normal respiratory effort and able to speak in complete sentences Auscultation: clear to auscultation bilaterally Cardio: Jugular venous distension: no JVD Rate: regular rate Rhythm: r egular rhythm Heart sounds: S1 normal heart sound present and S2 normal heart sound present GI: Inspection: normal to inspection GI Palp: Yes Soft to palpation, No Tenderness to palpation present (GI), No Guarding due to palpation present (GI) and Yes No hepatosplenomegaly present Auscultation: normal bowel sounds R ectal Exam: deferred Skin: General skin exam: normal color and no rashes or lesions noted Neuro: General: oriented to person, oriented to place, oriented to time and patient oriented x3 Cranial nerves: Yes Equal, round and reactive pupils present Speech: normal speech Extrem: General: normal to inspection and no clubbing, cyanosis or edema Psych: Appearance: grossly normal Affect: Blunted affect present J udgement: Good judgement present (Psych) Results Labs 11/03/24 04:54 11/03/24 04:54 Labs: Short CBC 11/02/24 11/03/24 Range/Units 17:00 04:54 WBC 6.5 5.3 (4.5-10.0) K/mm3 Hgb 16.0 14.9 (14.0-18.0) g/dL Hct 44.2 44.9 (42.0-52.0) % Plt Count 206 118 L (150-375) k/mm3 BMP 11/02/24 11/03/24 17:00 04:54 Sodium 133 L 132 L Potassium 4.2 3.9 Chloride 96 L 102 Carbon Dioxide 23 18 L BUN 32 H 24 H Creatinine 1.04 0.81 Glucose 92 73 Calcium 10.0 9.0 Cardiac Enzymes 11/02/24 Range/Units 17:00 Total Creatine Kinase 120 (55-170) U/L Liver Function 11/02/24 11/03/24 Range/Units 17:00 04:54 Total Bilirubin 3.5 H 3.3 H (0.2-1.3) mg/dL AST 49 40 (17-59) U/L ALT 32 23 (6-50) U/L Alkaline Phosphatase 88 68 (38-126) U/L Albumin 4.5 3.5 (3.5-5.1) g/dL
--- NOTE | 2024-11-03 08:31 | PCSTNOTE ---
Please refer to the Bedside Swallow Evaluation in the EMR. Please note, silent aspiration cannot be ruled out at bedside. The patient is a 59 year old male admitted with a failure to thrive diagnosis. Orders received to complete a BSE secondary to a 50 pound weight loss and reports unable to swallow solids. The patient was positioned upright and an oral mechanism evaluation showed structures to be within normal limits. The patient was presented the following consistencies: thin liquid via cup and straw, puree texture, and solid/cracker. Oral Stage: Timely oral preparation nd transit for all consistencies. Pharyngeal Stage: When presented all consistencies swallow initiation appeared timely without noted coughing, choking, or wet vocal quality. However at the end of the assessment patient had noted throat clearing and reports of the food feeling as if it was stuck. Recommend MBS to r/o aspiration risk. [ End ]
[2024-11-03] MEDS: PANTOPRAZOLE SODIUM IV 40 MG VIAL IV PUSH (08:35)
[2024-11-03] MEDS: SODIUM CHLORIDE 0.9% IV 1,000 ML 100 ML IV CONT (08:35)
[2024-11-03] MEDS: FLUTICASONE/UMECLIDIN/VILANTER 100-62.5-25 MCG ELLIPTA 1 PUFF INHALATION (08:50)
[2024-11-03 09:38] LABS: Carcinoembryonic Antigen 3.6 ng/mL (0.0-3.0)
--- NOTE | 2024-11-03 12:24 | PCSTNOTE ---
Please refer to the Modified Barium Swallow Evaluation in the EMR. Miguelito Lopes is a 59 year old male presented this admission for significant recent weight loss and reported dysphagia and a globus sensation with solids. The pt reported consistent globus sensation with all PO and reported minimal PO intake. The pt was presented with thin barium liquid, barium pudding, and hard solids coated in barium paste. Across consistencies, the oral stage of swallowing was well within functional limits, with timely swallow initiation and timely mastication. The pharyngeal phase was swallowing was notable for moderate vallecular residue with thin liquid trials via cup edge and straw. This vallecular residue was due to reduced base of tongue retraction. The pt sensed the residue and independently initiated repeat swallows. No aspiration or penetration was noted across all presented volumes and consistencies. Recommendations: 1. Regular, Level 7 and Thin liquids, Level 1 2. Upright with all PO, small bites and sips 3. No further ST services warranted at this time. MD and RN notified of results.
[2024-11-03 16:35] LABS: Add Urine Microscopic? NO; Appearance Urine Clear (Clear); Glucose Urine UA Negative (Negative); Leukocyte Esterase Ur Negative LEU/UL (Negative); Nitrate Urine Negative (Negative); Specific Grav Ur 1.027 (1.001-1.035)
[2024-11-03] MEDS: METOPROLOL SUCCINATE EXT REL 50 MG TABCR PO (20:48)
[2024-11-03] MEDS: SODIUM CHLORIDE 0.9% IV 1,000 ML 75 ML IV CONT (20:51)
[2024-11-04] VITALS (14 sets, daily range): BP systolic 82–122; BP diastolic 55–85; PULSE 65–93; RESP 14–20; TEMP 36.4–36.6; O2SAT 96–100
[2024-11-04 05:26] LABS: Hematocrit 34.5 % (42.0-52.0); Hemoglobin 12.2 g/dL (14.0-18.0); Immature Granulocyte Percent A 0.4 % (0-0.5); Immature Platelet Fraction Pct 2.4 % (0.9-11.2); Lymphocytes Absolute Auto 1.13 K/mm3 (0.9-3.2); Mean Corpuscular HGB Conc 35.4 g/dl (32-36); Mean Corpuscular Hemoglobin 32.6 pg (26-34); Mean Corpuscular Volume 92.2 fl (80-100); Nucleated Red Blood Cells Absolute Auto 0.000 K/mm3 (0.0-0.012); Nucleated Red Blood Cells Perc 0.0 % (0.0-0.2); Platelet Count Result 132 k/mm3 (150-375); Red Blood Count 3.74 M/mm3 (4.6-6.20); White Blood Count 4.6 K/mm3 (4.5-10.0)
[2024-11-04 05:45] LABS: Alanine Aminotransferase 22 U/L (6-50); Albumin Level 3.1 g/dL (3.5-5.1); Alkaline Phosphatase 58 U/L (38-126); Anion Gap 8 mmol/L (4-12); Aspartate Amino Transferase 35 U/L (17-59); Bilirubin,Total 2.1 mg/dL (0.2-1.3); Blood Urea Nitrogen 15 mg/dL (9-20); Calcium 8.9 mg/dL (8.4-10.2); Carbon Dioxide 23 mmol/L (22-30); Chloride 102 mmol/L (98-107); Estimated CRCL calculation 54 ml/min; Estimated Glomerular Filt Rate > 60; Glucose 72 mg/dL (65-110); Potassium 2.9 mmol/L (3.4-5.0); Sodium 133 mmol/L (137-145); Total Protein 5.3 g/dL (6.3-8.2)
--- NOTE | 2024-11-04 07:00 | P.PNAN_ITS ---
Anes - Initial Pre Proc Eval Procedure: Operation Date: 11/04/24 13:30 Proposed Procedures p Esophagogastroduodenoscopy - Kimo Gonzalez MD Date/Time: 11/04/24 07:00 Surgeon: Chico Arroyo MD Pre Op Diagnosis: Adult failure to thrive, decreased p.o. intake Patient Data Age: 59 Gender: M Height: 1.65 m Weight: 46.8 kg Last Vital Signs Temp 36.5 C 11/04/24 04:53 Pulse 71 11/04/24 04:53 Resp 16 11/04/24 04:53 BP 103/74 11/04/24 04:53 Pulse Ox 96 11/04/24 04:53 O2 Del Method Room Air 11/03/24 21:39 FiO2 21 11/03/24 21:39 Allergies Allergy/AdvReac Type Severity Reaction Status Date / Time ciprofloxacin Allergy Intermediate Rash Verified 11/04/24 12:26 Home Medications ?Medication ?Instructions ?Recorded ?Confirmed ?Type tamsulosin 0.4 mg capsule (Flomax) 0.4 mg PO HS 11/02/24 History albuterol sulfate 90 mcg/actuation 2 inh inhalation Q6 H PRN shortness 12/12/22 11/02/24 Rx aerosol inhaler of breath or wheezing #8.5 g mauricio apixaban 5 mg tablet (Eliquis) 5 mg PO BID #180 tabs 0 08/03/23 11/02/24 Rx docusate sodium 100 mg capsule 100 mg PO BID #60 caps 10/02/24 11/02/24 Rx acetaminophen 500 mg capsule 1,000 mg PO Q6H PRN pain 11/02/24 11/02/24 History clopidogrel 75 mg tablet 75 mg PO DAILY 11/02/2410/24 History fluticasone fur. 100 mcg-umeclid 1 inh inhalation KARON Y 11/02/24 11/02/24 History 62.5 mcg-vilant 25 mcg inhalat.powder (Trelegy Ellipta) famotidine 20 mg tablet (Pepcid) 20 mg PO DAILY #90 ta bs 11/10/24 Rx metoprolol succinate 25 mg 12.5 mg (1/2 x 25 mg) PO DA TERRI #90 11/10/24 Rx tablet,extended release 24 hr tabs (Toprol XL) mirtazapine 15 mg tablet (Remeron) 15 mg PO HS #90 tab s 11/10/24 Rx Laboratory Tests 11/03/24 11/03/24 11/04/24 04:54 16:27 04:54 WBC 4.6 K/mm3 (4.5-10.0) RBC 3.74 L M/mm3 (4.6-6.20) Hgb 12.2 L g/dL (14.0-18.0) Hct 34.5 L % (42.0-52.0) MCV 92.2 D fl (80-100) MCH 32.6 pg (26-34) MCHC 35.4 g/dl (32-36) RDW 13.4 % (11.5-14.5) Plt Count 132 L k/mm3 (150-375) MPV 10.1 fl (7.4-10.4) Immature Gran % (Auto) 0.4 % (0-0.5) Neut % (Auto) 69.3 % (45.5-73.1) Lymph % (Auto) 24.5 % (18.3-44.2) [place] % (Auto) 5.4 % (2.6-8.5) Eos % (Auto) 0.2 % (0-4.4) Baso % (Auto) 0.2 % (0.2-1.2) Lymph # (Auto) 1.13 K/mm3 (0.9-3.2) [place] # (Auto) 0.3 K/mm3 (0.1-0.6) Eos # (Auto) 0.0 K/mm3 (0-0.3) Baso # (Auto) 0.0 K/mm3 (0.0-0.1) Abs Immat Gran (auto) 0.02 K/mm3 (0.00-0.031) Absolute Neuts (auto) 3.2 K/mm3 (1.3-6.7) Absolute Nucleated RBC 0.000 K/mm3 (0.0-0.012) Nucleated RBC % 0.0 % (0.0-0.2) % Immature Plt Fraction 2.4 % (0.9-11.2) Sodium 133 L mmol/L (137-145) Potassium 2.9 L mmol/L (3.4-5.0) Chloride 102 mmol/L (98-107) Carbon Dioxide 23 mmol/L (22-30) Anion Gap 8 mmol/L (4-12) BUN 15 D mg/dL (9-20) Creatinine 0.84 mg/dL (0.7-1.3) Estim Creat Clear Calc 54 ml/min Estimated GFR > 60 (59 - ) Glucose 72 mg/dL (65-110) Calcium 8.9 mg/dL (8.4-10.2) Total Bilirubin 2.1 H mg/dL (0.2-1.3) Indirect Bilirubin 1.9 H mg/dL (0-1.1) AST 35 U/L (17-59) ALT 22 U/L (6-50) Alkaline Phosphatase 58 U/L (38-126) Total Protein 5.3 L g/dL (6.3-8.2) Albumin 3.1 L g/dL (3.5-5.1) Carcinoembryonic Ag 3.6 H ng/mL (0.0-3.0) CA 19-9 Antigen Pending Urine Color Yellow (Yellow) Urine Appearance Clear (Clear) Urine pH 5.0 (5.0-9.0) Ur Specific [place] 1.027 (1.001-1.035) Urine Protein Negative mg/dL (Negative) Urine Glucose (UA) Negative mg/dL (Negative) Urine Ketones 1+ H mg/dL (Negative) Ur Blood (Man) Negative (Negative) Urine Nitrate Negative (Negative) Urine Bilirubin Negative (Negative) Urine Urobilinogen 1.0 mg/dL (<2.0) Ur Leukocyte Esterase Negative LUPE/UL (Negative) Patient hx anesthesia problems: none Family hx anesthesia problems: none Results Review: All pre-operative results and documents have been reviewed as part of the pre- operative evaluation. [facility] Past Medical History Medical History (Updated 11/08/24 @ 10:59 by Tejas Angeles MD) ASD (atrial septal defect) Pancreatic lesion Esophagitis Dysphagia Drug induced myoclonus Myoclonic jerking Butterfly rash Acute otitis media Joint pain Spasm of thoracic back muscle Sinusitis Diarrhea BMI 26.0-26.9,adult 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 Left lower quadrant abdominal pain BMI 25.0-25.9,adult BMI 24.0-24.9, adult Umbilical hernia Non-healing skin lesion Eye injury BMI 21.0-21.9, adult Screen for colon cancer Hematuria BMI 22.0-22.9, adult Patellofemoral syndrome, left Cardiomegaly Steatohepatitis Bladder wall thickening Prostate enlargement COPD (chronic obstructive pulmonary disease) DJD (degenerative joint disease) of cervical spine Rotator cuff tear Left inguinal hernia Abdominal hernia Anxiety disorder, unspecified Atrial fibrillation and flutter Congestive heart failure, unspecified Fatty liver Lumbar spondylosis Pulmonary emphysema Surgical History Surgical History History of appendectomy H/O cardiac radiofrequency ablation H/O colonoscopy History of bladder surgery ablation History of vasectomy History of knee surgery History of bunionectomy History of inguinal hernia repair History of umbilical hernia repair Family History Family History Father No problems noted. Mother Thyroid activity decreased Fatty liver Stage 2 liver disease Sibling , covid-19 COVID-19 Other Diabetes mellitus Family history of coronary artery disease Family history of malignant neoplasm Hypertension Social History Social History Smoking status: Never smoker Second hand tobacco smoke exposure: Yes Alcohol intake: never Substance use: never Substance use type: marijuana Other substance usage details: OCCASIONAL Do You Feel Safe in your Home?: Yes Lack of Transportation: No Lack of Food: Never True Current Housing: I Have Housing Concerned About Future Housing: No Difficulty Paying Gas/Electric Bills: No Difficulty Paying for Meds: No Currently Unemployed: No Education: High School Diploma/GED Difficulty w/ Childcare or Family Care: No Living arrangements: alone Additional living arrangements comments: is . 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 Gender identity (if verbalized by the patient): Male Spiritual care concerns: No Anes - Eval Final PreProcedure Day of Procedure 11/04/24 07:00 Patient weight: normal Heart: regular rate and rhythm Lungs: clear to auscultation and normal air movement Airway: Mallampati scale class II Neurological: alert and oriented Last oral intake: >/= 8 hours ASA classification: IV Emergent: no Anesthetic plan: proceed Anesthesia type and monitoring: general GIVS and standard monitoring Results Review: All pre-operative results and documents have been reviewed as part of the pre- operative evaluation. Informed Consent: The patient's anesthetic plan and its attendant risks and benefits were discu ssed with the patient/family/POA. Questions were solicited and answers provided to the satisfaction of the patient/family/POA.
--- NOTE | 2024-11-04 07:48 | P.PNIM_ITS ---
Progress Note: A&P Assessment and Plan (1) Dysphagia: Qualifiers: Dysphagia type: esophageal phase Qualified Code(s): R13.19 - Other dysphagia Code(s): R13.10 - Dysphagia, unspecified Status: Acute Assessment and Plan: -Structural verses functional - MBS overall unremarkable, speech recommended regular diet and thin liquids -EGD 11/04 with concerns for duodenitis versus celiac disease, but she feels this finding is insufficient to explain the patient's severe weight loss. Biopsies were taken to rule out eosinophilic esophagitis. -further workup of abnormal MRCP as below (2) Adult failure to thrive: Code(s): R62.7 - Adult failure to thrive Status: Acute Assessment and Plan: -Acute weight loss according to pt's brothers of 50+ lb over the course of past of months citing his normal weight is in the 150s, currently 95 lbs -Patient states he cannot eat due to feeling that he has difficulty swallowing and it elicits abdominal pain. -dietitian consulted -workup as above -concern for functional component to patient's symptoms. Family very concerned about patient's mental health and requested psych consult. (3) Esophagitis: Code(s): K20.90 - Esophagitis, unspecified without bleeding Status: Acute Assessment and Plan: -EGD as above, biopsies pending - continue Protonix (4) Pancreatic lesion: Code(s): K86.9 - Disease of pancreas, unspecified Status: Acute Assessment and Plan: -As noted per CT scan a 14 mm pancreatic head or ampullary lesion is present. - MRCP actually showed normal pancreas, CT findings thought to be artifact. Also showed nonspecific soft tissue edema and ascites - does not explain patient's presenting symptoms (5) Ascites: Code(s): R18.8 - Other ascites Status: Acute Assessment and Plan: - MRCP showed small volume ascites and patient has no signs of liver disease to explain this - GI recommended surgery consult due to concern for carcinomatosis. General surgery consult placed. - resume Plavix and Eliquis if no plans for surgical work-up (6) MDD (major depressive disorder): Code(s): F32.9 - Major depressive disorder, single episode, unspecified Status: Chronic Assessment and Plan: -Patient not currently medicated for depression. -Recommend initiating treatment with SSRI once patient has passed swallow evaluation. -He is not experiencing any suicidal ideation. (7) Pulmonary emphysema: Qualifiers: Emphysema type: unspecified Qualified Code(s): J43.9 - Emphysema, unspecified Code(s): J43.9 - Emphysema, unspecified Status: Chronic Assessment and Plan: -Continue trelegy and albuterol (8) Atrial fibrillation: Code(s): I48.91 - Unspecified atrial fibrillation Status: Acute Assessment and Plan: - on Eliquis - held for work-up - continue metoprolol (9) Thrombocytopenia: Code(s): D69.6 - Thrombocytopenia, unspecified Status: Acute Assessment and Plan: - plt 118 - monitor CBC (10) Vitamin D deficiency: Code(s): E55.9 - Vitamin D deficiency, unspecified Status: Acute Assessment and Plan: - start PO supplementation (11) Chronic HFrEF (heart failure with reduced ejection fraction): Code(s): I50.22 - Chronic systolic (congestive) heart failure Status: Acute Assessment and Plan: - reported history of EF 40% - echo 11/03 with EF 55%, normal diastolic function, small pericardial effusion - BNP elevated, but appears dry - continue home metoprolol, not on ACEi/ARB? Patient has been noncompliant with meds - also had recent closure of hole in the heart a few months ago per brother (12) Prostate enlargement: Code(s): N40.0 - Benign prostatic hyperplasia without lower urinary tract symptoms Status: Acute Assessment and Plan: - noted on admit CT - UA negative - PRN bladder scan (13) Steatohepatitis: Code(s): K75.81 - Nonalcoholic steatohepatitis (LAMB) Status: Acute Assessment and Plan: - per history - monitor LFTs (14) Hypokalemia: Code(s): E87.6 - Hypokalemia Status: Acute Assessment and Plan: -PO/IV replacement ordered -recheck in AM Subjective Date/time seen: 11/04/24 07:48 Interval history: 59-year-old male patient who appears older than stated age with past medical his tory of depression, atrial fibrillation status post radioablation at [place] 2 months ago, COPD, heart failure, chronic pain and BPH who presents to the emergency room accompanied by his 2 brothers after they encouraged him to come for complaints decreased p.o. intake for the past 2 months stating he is ?unable to swallow and therefore has not been eating for several weeks or drinking very much. Patient seen and examined at bedside. Initially resistant to EGD, but agreeable this afternoon. Reporting some left lower quadrant pain. Review of Systems Review of Systems: All systems reviewed & are unremarkable except as noted in HPI and below Exam Narrative: General: frail, cachectic, appears older than stated age Eyes: EOMI ENT: neck supple Cardiovascular: Regular rate and rhythm Respiratory: Clear to auscultation, respirations even and unlabored on RA Gastrointestinal: Soft, mild left lower quadrant tenderness Genitourinary: no suprapubic tenderness Musculoskeletal: No edema, muscle wasting Skin: warm, dry Neuro: Alert. Psych: Mood appropriate Objective Data Vital Signs Vital Signs: Vital Signs - 24 hr 11/03/24 08:00 11/03/24 08:35 11/03/24 08:50 Temperature Pulse Rate 98 97 Respiratory Rate 16 Blood Pressure Pulse Oximetry Oxygen Delivery Room Air Fraction of Inspired Oxygen 11/03/24 08:54 11/03/24 11:45 11/03/24 12:00 Temperature Pulse Rate 97 95 Respiratory Rate 14 Blood Pressure Pulse Oximetry 95 Oxygen Delivery Room Air Room Air Fraction of Inspired Oxygen 11/03/24 14:28 11/03/24 16:00 11/03/24 19:55 Temperature 97.2 F L 97.3 F L Pulse Rate 61 87 60 Respiratory Rate 16 16 Blood Pressure 111/73 112/86 Pulse Oximetry 92 93 Oxygen Delivery Fraction of Inspired Oxygen 11/03/24 20:00 11/03/24 20:00 11/03/24 21:39 Temperature Pulse Rate 60 86 72 Respiratory Rate 16 20 Blood Pressure Pulse Oximetry 93 100 Oxygen Delivery Room Air Room Air Fraction of Inspired Oxygen 11/04/24 00:00 11/04/24 04:00 11/04/24 04:53 Temperature 97.7 F Pulse Rate 74 77 71 Respiratory Rate 16 Blood Pressure 103/74 Pulse Oximetry 96 Oxygen Delivery Fraction of Inspired Oxygen Intake/Output Intake/Output: Intake & Output 11/01/24 11/02/24 11/03/24 11/04/24 23:59 23:59 23:59 23:59 Intake Total 1999 2650 300 Output Total 950 1000 Balance 1999 1700 -700 Meds/Results Medications: Active Medications Generic Name Dose Route Start Last Admin Trade Name Freq PRN Reason Stop Dose Admin Albuterol 2 puff 11/02/24 21:58 Albuterol Sulfate (*Sp) Aerosol 1 Puff INHALATION Q6HRT PRN shortness of breath or wheezing Fluticasone/Umeclidinium/Vilanterol 1 puff 11/03/24 08:00 11/03/24 08:50 Fluticasone/Umeclidin/Vilanter 100-62.5-25 Mcg Ellipta INHALATION 1 puff DAILYRT FRANCISCO Administration Sodium Chloride 1,000 mls @ 75 mls/hr 11/02/24 22:00 11/03/24 20:51 Normal Saline Iv IV CONT 75 mls/hr .[id number] FRANCISCO Administration Potassium Chloride 100 mls @ 50 mls/hr 11/04/24 07:45 Kcl 20 Meq/Sw 100 Ml IVPB 11/04/24 09:44 ONCE ONE Metoprolol Succinate 50 mg 11/03/24 21:00 11/03/24 20:48 Metoprolol Succinate Ext Rel 50 Mg Tabcr PO 50 mg HS FRANCISCO Administration Pantoprazole Sodium 40 mg 11/03/24 09:00 11/03/24 08:35 Pantoprazole Sodium Iv 40 Mg Vial IV PUSH 40 mg QAM FRANCISCO Administration Perflutren Lipid Microsphere 0 ml 11/03/24 07:05 Perflutren Lipid Microspheres 1.5 Ml Vial Diluted To 10 Ml Total Volume IV PUSH 11/06/24 07:05 ONCE PRN adequate visualization Protocol Potassium Chloride 40 meq 11/04/24 07:45 Potassium Chloride 20 Meq Packet (For Liquid) PO 11/04/24 07:46 ONCE ONE Radiology Results: ITS Impressions Abdomen/Pelvis CT 11/02/24 19:52 IMPRESSION: Right ventricular and right atrial enlargement. Decreased cardiac output may be present given the late arterial appearance of these portal venous timed images. Moderate esophagitis/gastritis. Specific heterogeneity in the medial right hepatic lobe. Possible 14 mm pancreatic head or ampullary lesion. Recommend MR/MRCP of the abdomen without and with contrast for further evaluation of these findings. Consider GI consultation for potential ERCP. Very mild extra hepatic bile duct dilation. Modified Barium Swallow 11/03/24 12:13 IMPRESSION: Patient tolerated regular consistency oral feedings in the upright position. Please correlate with speech pathologist findings and specific feeding recommendations. Barium Swallow X-Ray 11/03/24 12:14 IMPRESSION: 1. Mild esophageal dysmotility with some tertiary contractions in mid to distal esophagus. Otherwise unremarkable esophagram with no masses or strictures. Labs Labs: Laboratory Results - last 24 hr 11/03/24 11/03/24 11/04/24 04:54 16:27 04:54 WBC 4.6 RBC 3.74 L Hgb 12.2 L Hct 34.5 L MCV 92.2 D MCH 32.6 MCHC 35.4 RDW 13.4 Plt Count 132 L MPV 10.1 Immature Gran % (Auto) 0.4 Neut % (Auto) 69.3 Lymph % (Auto) 24.5 [place] % (Auto) 5.4 Eos % (Auto) 0.2 Baso % (Auto) 0.2 Lymph # (Auto) 1.13 [place] # (Auto) 0.3 Eos # (Auto) 0.0 Baso # (Auto) 0.0 Abs Immat Gran (auto) 0.02 Absolute Neuts (auto) 3.2 Absolute Nucleated RBC 0.000 Nucleated RBC % 0.0 % Immature Plt Fraction 2.4 Sodium 133 L Potassium 2.9 L Chloride 102 Carbon Dioxide 23 Anion Gap 8 BUN 15 D Creatinine 0.84 Estim Creat Clear Calc 54 Estimated GFR > 60 Glucose 72 Calcium 8.9 Total Bilirubin 2.1 H Indirect Bilirubin 1.9 H AST 35 ALT 22 Alkaline Phosphatase 58 Total Protein 5.3 L Albumin 3.1 L Carcinoembryonic Ag 3.6 H Urine Color Yellow Urine Appearance Clear Urine pH 5.0 Ur Specific [place] 1.027 Urine Protein Negative Urine Glucose (UA) Negative Urine Ketones 1+ H Ur Blood (Man) Negative Urine Nitrate Negative Urine Bilirubin Negative Urine Urobilinogen 1.0 Ur Leukocyte Esterase Negative Quality VTE Prophylaxis VTE prophylaxis: mechanical ordered
[2024-11-04] MEDS: PANTOPRAZOLE SODIUM IV 40 MG VIAL IV PUSH (08:18)
[2024-11-04] MEDS: KCL 20 MEQ/SW 100 ML 100 ML 50 MEQ IVPB (08:19)
[2024-11-04] MEDS: FLUTICASONE/UMECLIDIN/VILANTER 100-62.5-25 MCG ELLIPTA 1 PUFF INHALATION ×2 (09:15→09:17)
[2024-11-04] MEDS: SODIUM CHLORIDE 0.9% IV 1,000 ML 75 ML IV CONT (10:50)
[2024-11-04 11:09] LABS: CA 19-9 29 U/mL (0-35)
--- NOTE | 2024-11-04 11:35 | P.CDI_ITS ---
CDI Query Clarification Request BMI: 17.2 Nutritional Diagnostic Statement: Please refer to the comprehensive nutrition assessment for further information. If you agree with diagnosis of Severe Protein Calorie Malnutrition as related to inadequate protein energy intake as evidenced by minimal oral intake for >1-2 months; significant weight loss of 23% (30 ibs ) 2 months; severe subcutaneous weight loss (orbital fat pads) and severe muscle wasting (temporalis, clavicle, shoulder). Please specify severity if known: * Mild * Moderate * Severe * Other/Unknown <Conchita Pearce RN - Last Filed: 11/04/24 11:35> Clarified Diagnosis Clarified Diagnosis: severe protein calorie malnutrition <GILDA Frankel - Last Filed: 11/04/24 15:08>
[2024-11-04] MEDS: LACTATED RINGERS 1,000 ML 150 ML IV CONT (12:33)
--- NOTE | 2024-11-04 14:13 | S_PTH ---
PATIENT: Miguelito Lopes LOC: [id number] U#:[id number] AGE/SX: 59/M ROOM: 249 RE11/03/[address]: Tisha Piedra APRN : 1965 BED: 01 DIS: 11/10/2024 SPEC #: [id number] RECD: 11/05/24 08:02 STATUS: KELI REQ #: [id number] FABIANA: 11/04/24 14:[address]: Kimo Gonzalez DEPT: [facility] Surgical RECD BY: Meena Wharton ENTERED: 11/05/24 08:04 SP TYPE: Surgical OTHR DR: MD Jose Fung MD Natalie J. Ross, PA Dean MD Alden Devlin, DO Tissues: A - Duodenal Biopsy B - Gastric Biopsy C - Gastric Biopsy D - Esophageal Biopsy Procedures: Hematoxylin and Eosin Stain Gross and Microscopic Level 4
--- NOTE | 2024-11-04 14:26 | P.PNGI_ITS ---
Progress Note: A&P Assessment and Plan (1) Ascites: Code(s): R18.8 - Other ascites Status: Acute Assessment and Plan: The EGD report indicated non-specific blunting of the villi in the duodenum, suggesting duodenitis vs celiac disease, but this finding is insufficient to explain the patient's severe weight loss. Biopsies were also taken from the esophagus to rule out eosinophilic esophagitis, although the mucosa appeared normal. An MRI ruled out pancreatic lesions but revealed an abnormal amount of ascites in the abdomen and pelvis. Peritoneal carcinomatosis is considered a potential cause, there is nothing to suggest liver disease. Given these findings, the next step is a surgical consultation to consider a diagnostic laparoscopy to investigate the nature of the ascites. Subjective Date/time seen: 11/04/24 14:26 Objective Data Vital Signs Vital Signs: Vital Signs - 24 hr 11/03/24 14:28 11/03/24 16:00 11/03/24 19:55 Temperature 97.2 F L 97.3 F L Pulse Rate 61 87 60 Respiratory Rate 16 16 Blood Pressure 111/73 112/86 Pulse Oximetry 92 93 Oxygen Delivery Fraction of Inspired Oxygen 11/03/24 20:00 11/03/24 20:00 11/03/24 21:39 Temperature Pulse Rate 60 86 72 Respiratory Rate 16 20 Blood Pressure Pulse Oximetry 93 100 Oxygen Delivery Room Air Room Air Fraction of Inspired Oxygen 21 11/04/24 00:00 11/04/24 04:00 11/04/24 04:53 Temperature 97.7 F Pulse Rate 74 77 71 Respiratory Rate 16 Blood Pressure 103/74 Pulse Oximetry 96 Oxygen Delivery Fraction of Inspired Oxygen 11/04/24 08:15 11/04/24 09:17 11/04/24 09:18 Temperature Pulse Rate 90 90 Respiratory Rate 16 20 Blood Pressure Pulse Oximetry 99 Oxygen Delivery Room Air Room Air Fraction of Inspired Oxygen 21 11/04/24 12:00 11/04/24 12:20 11/04/24 14:14 Temperature 97.8 F Pulse Rate 86 93 66 Respiratory Rate 18 20 Blood Pressure 122/85 82/55 L Pulse Oximetry 100 99 Oxygen Delivery Room Air Room Air Fraction of Inspired Oxygen 11/04/24 14:24 Temperature Pulse Rate 65 Respiratory Rate 18 Blood Pressure 92/68 L Pulse Oximetry 98 Oxygen Delivery Room Air Fraction of Inspired Oxygen Intake/Output Intake/Output: Intake & Output 11/01/24 11/02/24 11/03/24 11/04/24 23:59 23:59 23:59 23:59 Intake Total 1999 2650 1300 Output Total 950 1700 Balance 1999 1700 -400 Meds/Results Medications: Active Medications Generic Name Dose Route Start Last Admin Trade Name Freq PRN Reason Stop Dose Admin Albuterol 2 puff 11/02/24 21:58 Albuterol Sulfate (*Sp) Aerosol 1 Puff INHALATION Q6HRT PRN shortness of breath or wheezing Fluticasone/Umeclidinium/Vilanterol 1 puff 11/03/24 08:00 11/04/24 09:17 Fluticasone/Umeclidin/Vilanter 100-62.5-25 Mcg Ellipta INHALATION 1 puff DAILYRT FRANCISCO Administration Sodium Chloride 1,000 mls @ 75 mls/hr 11/02/24 22:00 11/04/24 10:50 Normal Saline Iv IV CONT 75 mls/hr .[id number] FRANCISCO Administration Lactated Ringer's 1,000 mls @ 150 mls/hr 11/04/24 12:30 11/04/24 14:12 Lr - Lactated Ringers Iv IV CONT 150 mls/hr .[id number] FRANCISCO Infusion Metoprolol Succinate 50 mg 11/03/24 21:00 11/03/24 20:48 Metoprolol Succinate Ext Rel 50 Mg Tabcr PO 50 mg HS FRANCISCO Administration Perflutren Lipid Microsphere 0 ml 11/03/24 07:05 Perflutren Lipid Microspheres 1.5 Ml Vial Diluted To 10 Ml Total Volume IV PUSH 11/06/24 07:05 ONCE PRN adequate visualization Protocol Radiology Results: ITS Impressions Abdomen/Pelvis CT 11/02/24 19:52 IMPRESSION: Right ventricular and right atrial enlargement. Decreased cardiac output may be present given the late arterial appearance of these portal venous timed images. Moderate esophagitis/gastritis. Specific heterogeneity in the medial right hepatic lobe. Possible 14 mm pancreatic head or ampullary lesion. Recommend MR/MRCP of the abdomen without and with contrast for further evaluation of these findings. Consider GI consultation for potential ERCP. Very mild extra hepatic bile duct dilation. Modified Barium Swallow 11/03/24 12:13 IMPRESSION: Patient tolerated regular consistency oral feedings in the upright position. Please correlate with speech pathologist findings and specific feeding recommendations. Barium Swallow X-Ray 11/03/24 12:14 IMPRESSION: 1. Mild esophageal dysmotility with some tertiary contractions in mid to distal esophagus. Otherwise unremarkable esophagram with no masses or strictures. MRCP 11/04/24 09:31 IMPRESSION: 1. Normal pancreas. Nodular appearing region of concern on prior CT upon review of the [address] studies including sagittal and coronal images suggests this represents artifactual appearance of a nodule resulting from a fold in the duodenum viewed en face. 2. Nonspecific soft tissue tissue edema and small amount of ascites scattered throughout the abdomen and pelvis. 3. Gallbladder sludge with no gallstones or intra or extrahepatic biliary ductal dilation. Labs Labs: Laboratory Results - last 24 hr 11/03/24 11/03/24 11/04/24 04:54 16:27 04:54 WBC 4.6 RBC 3.74 L Hgb 12.2 L Hct 34.5 L MCV 92.2 D MCH 32.6 MCHC 35.4 RDW 13.4 Plt Count 132 L MPV 10.1 Immature Gran % (Auto) 0.4 Neut % (Auto) 69.3 Lymph % (Auto) 24.5 Wilson % (Auto) 5.4 Eos % (Auto) 0.2 Baso % (Auto) 0.2 Lymph # (Auto) 1.13 Wilson # (Auto) 0.3 Eos # (Auto) 0.0 Baso # (Auto) 0.0 Abs Immat Gran (auto) 0.02 Absolute Neuts (auto) 3.2 Absolute Nucleated RBC 0.000 Nucleated RBC % 0.0 % Immature Plt Fraction 2.4 Sodium 133 L Potassium 2.9 L Chloride 102 Carbon Dioxide 23 Anion Gap 8 BUN 15 D Creatinine 0.84 Estim Creat Clear Calc 54 Estimated GFR > 60 Glucose 72 Calcium 8.9 Total Bilirubin 2.1 H AST 35 ALT 22 Alkaline Phosphatase 58 Total Protein 5.3 L Albumin 3.1 L CA 19-9 Antigen 29 Urine Color Yellow Urine Appearance Clear Urine pH 5.0 Ur Specific [place] 1.027 Urine Protein Negative Urine Glucose (UA) Negative Urine Ketones 1+ H Ur Blood (Man) Negative Urine Nitrate Negative Urine Bilirubin Negative Urine Urobilinogen 1.0 Ur Leukocyte Esterase Negative
[2024-11-04] MEDS: POTASSIUM CHLORIDE 20 MEQ PACKET (FOR LIQUID) 40 MEQ PO (15:52)
--- NOTE | 2024-11-04 16:13 | P.CONGS_ITS ---
Assessment and Plan Assessment and plan (1) Ascites: Code(s): R18.8 - Other ascites Status: Acute Assessment and Plan: * Imaging and chart reviewed. The patient has been experiencing vague upper abdominal pain for months with failure to thrive and nearly a 40 lb weight loss since August. Imaging showed a small volume of ascites with unknown etiology. There is likely not enough fluid to consider paracentesis. Current workup thus far has been negative. GI is following and he had an EGD today with findings of duodenitis vs celiac disease. No evidence of liver disease. He is definitely constipated, which seems like a chronic issue for the patient, but this could be contributing to his abdominal pain. Would recommend stimulating his bowels to see if this helps with pain and in turn allows him to eat more. There is no surgical indication at this time, unless he had other findings on imaging that would indicate further evaluation with a diagnostic laparoscopy. The small volume of ascites with his severe weight loss would not solely be an indication for surgery at this time. We would recommend referring him back to [facility] for more extensive medical workup, which is where he was evaluated in August for similar symptoms. He clearly has failure to thrive and initially reported feelings of depression. Could also consider Psychiatric evaluation as he could have some psychiatric issues that are playing a role. Thank you for allowing us to see the patient in consultation. (2) Abdominal pain: Code(s): R10.9 - Unspecified abdominal pain Status: Acute (3) Atrial fibrillation: Code(s): I48.91 - Unspecified atrial fibrillation Status: Acute (4) Anticoagulated by anticoagulation treatment: Code(s): Z79.01 - bed bug exterminator (current) use of anticoagulants Status: Acute (5) Adult failure to thrive: Code(s): R62.7 - Adult failure to thrive Status: Acute (6) Elevated bilirubin: Code(s): R17 - Unspecified jaundice Status: Acute Plan I have discussed the patient's case and plan of care with Dr. Shah. History of Present Illness Consult details Consult date: 11/04/24 Reason for consult: other (Ascites) Requesting physician: Fior Null PA Narrative: This is a 59-year-old with history of afib s/p ablation at [facility] in August, COPD, CHF, BPH, and depression, who we have been asked to see in surgical consultation for ascites. He was previously seen by our service in May of 2024 for splenic laceration. At that time, he was complaining of upper abdominal pain x 1 month. He is a poor historian and it is difficult to get information from the patient with questioning. His answers are vague and he gives nonspecific responses to majority of my questions. He has continued to have issues with abdominal pain over the past few months. He states that when he went to [facility] in August, it was actually for his pain and difficulty eating. He can't give details on what was done there other than the ablation. He has been eating less due to the pain, but also states the pain is not aggravated by eating. He has not had any nausea or vomiting. He does report constipation, which is something he complained of when seen in May. He cannot recall his last bowel movement, but states it has been well over a week ago. He also cannot recall the last time he ate solid food. He has been sipping water for weeks and denies even having any other liquids other than water. Denies trying any broths, soups, or other food items for some time. His family encouraged him to come back to the ED two days ago for evaluation. He was admitted for adult failure to thrive. His weight shows about a 40 lb weight loss since August in our records. He also at some point had issues with dysphagia, which he denied to me today. CT abdomen/pelvis on admission showed small volume of ascites, and a possible 14 mm pancreatic or ampullary lesion. GI was consulted. MRCP showed no pancreatic lesion. EGD today showed findings of duodenitis versus celiac disease. Total bilirubin has also been elevated up to 3.3 and is 2.1 today. [place] that this could be related to his fasting. Bilirubin was also elevated in May though. No known history of Gilbert's. GI recommended patient be evaluated for diagnostic laparoscopy to further evaluate his ascites. He is now seen with no family at the bedside. 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 Left lower quadrant abdominal pain BMI 25.0-25.9,adult BMI 24.0-24.9, adult Umbilical hernia Non-healing skin lesion Eye injury BMI 21.0-21.9, adult Screen for colon cancer Hematuria BMI 22.0-22.9, adult Patellofemoral syndrome, left Cardiomegaly Steatohepatitis Bladder wall thickening Prostate enlargement COPD (chronic obstructive pulmonary disease) DJD (degenerative joint disease) of cervical spine Rotator cuff tear Left inguinal hernia Abdominal hernia Anxiety disorder, unspecified Atrial fibrillation and flutter Congestive heart failure, unspecified Fatty liver Lumbar spondylosis Pulmonary emphysema Surgical History Surgical History History of appendectomy H/O cardiac radiofrequency ablation H/O colonoscopy History of bladder surgery ablation History of vasectomy History of knee surgery History of bunionectomy History of inguinal hernia repair History of umbilical hernia repair Family History Family History Father No problems noted. Mother Thyroid activity decreased Fatty liver Stage 2 liver disease Sibling , covid-19 COVID-19 Other Diabetes mellitus Family history of coronary artery disease Family history of malignant neoplasm Hypertension Social History Social History Smoking status: Never smoker Second hand tobacco smoke exposure: Yes Alcohol intake: never Substance use: never Substance use type: marijuana Other substance usage details: OCCASIONAL Do You Feel Safe in your Home?: Yes Lack of Transportation: No Lack of Food: Never True Current Housing: I Have Housing Concerned About Future Housing: No Difficulty Paying Gas/Electric Bills: No Difficulty Paying for Meds: No Currently Unemployed: No Education: High School Diploma/GED Difficulty w/ Childcare or Family Care: No Living arrangements: alone Additional living arrangements comments: is . 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 Gender identity (if verbalized by the patient): Male Spiritual care concerns: No Meds Home Medications and Allergies Home Medications ?Medication ?Instructions ?Recorded ?Confirmed ?Type metoprolol succinate 50 mg 50 mg PO HS 01/26/22 11/02/24 History tablet,extended release 24 hr tamsulosin 0.4 mg capsule (Flomax) 0.4 mg PO HS 05/04/22 11/02/24 History albuterol sulfate 90 mcg/actuation 2 inh inhalation Q6H PRN shortness 12/12/22 11/02/24 Rx aerosol inhaler of breath or wheezing #8.5 grams apixaban 5 mg tablet (Eliquis) 5 mg PO BID #180 tabs 08/03/23 11/02/24 Rx docusate sodium 100 mg capsule 100 mg PO BID #60 caps 10/02/24 11/02/24 Rx doxycycline monohydrate 100 mg 100 mg PO BID #14 caps 10/02/24 11/02/24 Rx capsule acetaminophen 500 mg capsule 1,000 mg PO Q6H PRN pain 11/02/24 11/02/24 History aspirin 81 mg capsule 81 mg PO DAILY 11/02/24 11/02/24 History clopidogrel 75 mg tablet 75 mg PO DAILY 11/02/24 11/02/24 History fluticasone fur. 100 mcg-umeclid 1 inh inhalation DAILY 11/02/24 11/02/24 History 62.5 mcg-vilant 25 mcg inhalat.powder (Trelegy Ellipta) sennosides 8.6 mg capsule (senna) 17.2 mg PO DAILY 11/02/24 11/02/24 History Allergies Allergy/AdvReac Type Severity Reaction Status Date / Time ciprofloxacin Allergy Intermediate Rash Verified 11/04/24 12:26 Vital Signs Vital Signs - 24 hr 11/03/24 19:55 11/03/24 20:00 11/03/24 20:00 Temperature 97.3 F L Pulse Rate 60 60 86 Respiratory Rate 16 16 Blood Pressure 112/86 Pulse Oximetry 93 93 Oxygen Delivery Room Air Fraction of Inspired Oxygen 11/03/24 21:39 11/04/24 00:00 11/04/24 04:00 Temperature Pulse Rate 72 74 77 Respiratory Rate 20 Blood Pressure Pulse Oximetry 100 Oxygen Delivery Room Air Fraction of Inspired Oxygen 21 11/04/24 04:53 11/04/24 08:15 11/04/24 09:17 Temperature 97.7 F Pulse Rate 71 90 Respiratory Rate 16 16 Blood Pressure 103/74 Pulse Oximetry 96 Oxygen Delivery Room Air Fraction of Inspired Oxygen 11/04/24 09:18 11/04/24 12:00 11/04/24 12:20 Temperature 97.8 F Pulse Rate 90 86 93 Respiratory Rate 20 18 Blood Pressure 122/85 Pulse Oximetry 99 100 Oxygen Delivery Room Air Room Air Fraction of Inspired Oxygen 21 11/04/24 14:14 11/04/24 14:24 11/04/24 14:34 Temperature Pulse Rate 66 65 71 Respiratory Rate 20 18 14 Blood Pressure 82/55 L 92/68 L 104/80 Pulse Oximetry 99 98 100 Oxygen Delivery Room Air Room Air Room Air Fraction of Inspired Oxygen 11/04/24 16:00 Temperature Pulse Rate 86 Respiratory Rate Blood Pressure Pulse Oximetry Oxygen Delivery Fraction of Inspired Oxygen Exam 2 Const: General: no acute distress and ill appearing chronically Nutritional Appearance: cachectic, thin and underweight Orientation/consciousness: p atient oriented x3 HENMT: Head: normocephalic and atraumatic Ears: hearing grossly normal bilaterally Mouth: Yes moist mucous membranes Eyes: General: appearance normal, both eyes and all related structures P upils: Equal, round and reactive pupils present Neck: Neck: full ROM Resp: Effort & Inspection: no respiratory distress Auscultation: clear to auscultation bilaterally Cardio: Rate: regular rate Rhythm: regular rhythm Peripheral pulses: P eripheral pulses 2+ throughout GI: Inspection: non-distended, scaphoid and no visible herniation GI Palp: Yes Soft to palpation, Yes Tenderness to palpation present (GI) (diffuse mild tenderness), No Guarding due to palpation present (GI), Yes No hepatosplenomegaly present and No Rebound tenderness present Auscultation: H ypoactive bowel sounds present Rectal Exam: deferred Skin: General skin exam: pallor Neuro: General: moves all extremities and no focal motor deficits Speech: n ormal speech Extrem: General: normal to inspection and no edema Psych: Attitude: cooperative Insight: Fair insight present (Psych) J udgement: Fair judgement present (Psych) Results Labs 11/04/24 04:54 11/04/24 04:54 Labs: Abnormal lab results 11/03/24 11/04/24 Range/Units 16:27 04:54 RBC 3.74 L (4.6-6.20) M/mm3 Hgb 12.2 L (14.0-18.0) g/dL Hct 34.5 L (42.0-52.0) % Plt Count 132 L (150-375) k/mm3 Sodium 133 L (137-145) mmol/L Potassium 2.9 L (3.4-5.0) mmol/L Total Bilirubin 2.1 H (0.2-1.3) mg/dL Total Protein 5.3 L (6.3-8.2) g/dL Albumin 3.1 L (3.5-5.1) g/dL Urine Ketones 1+ H (Negative) mg/dL Diabetes panel 11/04/24 Range/Units 04:54 Sodium 133 L (137-145) mmol/L Potassium 2.9 L (3.4-5.0) mmol/L Chloride 102 (98-107) mmol/L Carbon Dioxide 23 (22-30) mmol/L BUN 15 D (9-20) mg/dL Creatinine 0.84 (0.7-1.3) mg/dL Glucose 72 (65-110) mg/dL Calcium 8.9 (8.4-10.2) mg/dL AST 35 (17-59) U/L ALT 22 (6-50) U/L Alkaline Phosphatase 58 (38-126) U/L Total Protein 5.3 L (6.3-8.2) g/dL Albumin 3.1 L (3.5-5.1) g/dL Calcium panel 11/04/24 Range/Units 04:54 Calcium 8.9 (8.4-10.2) mg/dL Albumin 3.1 L (3.5-5.1) g/dL Pituitary panel 11/04/24 Range/Units 04:54 Sodium 133 L (137-145) mmol/L Potassium 2.9 L (3.4-5.0) mmol/L Chloride 102 (98-107) mmol/L Carbon Dioxide 23 (22-30) mmol/L BUN 15 D (9-20) mg/dL Creatinine 0.84 (0.7-1.3) mg/dL Glucose 72 (65-110) mg/dL Calcium 8.9 (8.4-10.2) mg/dL Adrenal panel 11/04/24 Range/Units 04:54 Sodium 133 L (137-145) mmol/L Potassium 2.9 L (3.4-5.0) mmol/L Chloride 102 (98-107) mmol/L Carbon Dioxide 23 (22-30) mmol/L BUN 15 D (9-20) mg/dL Creatinine 0.84 (0.7-1.3) mg/dL Glucose 72 (65-110) mg/dL Calcium 8.9 (8.4-10.2) mg/dL Total Bilirubin 2.1 H (0.2-1.3) mg/dL AST 35 (17-59) U/L ALT 22 (6-50) U/L Alkaline Phosphatase 58 (38-126) U/L Total Protein 5.3 L (6.3-8.2) g/dL Albumin 3.1 L (3.5-5.1) g/dL All other labs normal. Imaging Additional studies: ITS Impressions Abdomen/Pelvis CT 11/02/24 19:52 IMPRESSION: Right ventricular and right atrial enlargement. Decreased cardiac output may be present given the late arterial appearance of these portal venous timed images. Moderate esophagitis/gastritis. Specific heterogeneity in the medial right hepatic lobe. Possible 14 mm pancreatic head or ampullary lesion. Recommend MR/MRCP of the abdomen without and with contrast for further evaluation of these findings. Consider GI consultation for potential ERCP. Very mild extra hepatic bile duct dilation. Modified Barium Swallow 11/03/24 12:13 IMPRESSION: Patient tolerated regular consistency oral feedings in the upright position. Please correlate with speech pathologist findings and specific feeding recommendations. Barium Swallow X-Ray 11/03/24 12:14 IMPRESSION: 1. Mild esophageal dysmotility with some tertiary contractions in mid to distal esophagus. Otherwise unremarkable esophagram with no masses or strictures. MRCP 11/04/24 09:31 IMPRESSION: 1. Normal pancreas. Nodular appearing region of concern on prior CT upon review of the [address] studies including sagittal and coronal images suggests this represents artifactual appearance of a nodule resulting from a fold in the duodenum viewed en face. 2. Nonspecific soft tissue tissue edema and small amount of ascites scattered throughout the abdomen and pelvis. 3. Gallbladder sludge with no gallstones or intra or extrahepatic biliary ductal dilation.
--- NOTE | 2024-11-04 17:35 | P.PSYCH_ITS ---
Assessment and Plan Assessment and plan (1) MDD (major depressive disorder): Qualifiers: Active/Remission status: currently active Major depression episode severity: severe Major depression recurrence: recurrent Psychotic features: w ithout psychotic features Qualified Code(s): F33.2 - Major depressive disorder, recurrent severe without psychotic features Code(s): F32.9 - Major depressive disorder, single episode, unspecified Status: Chronic Assessment and Plan: - Patient reports history of depression diagnosed in thirties. - Previously tried Zoloft (made him feel edgy and nervous) and mirtazapine (helpful). - Current symptoms: persistent worry, irritability, difficulty relaxing. - Montalvo's Depression Inventory reveals significant depressive symptoms. score: 58 - Patient denies current suicidal ideation or past suicide attempts. - Plan: a. Start mirtazapine 7.5 mg or 15 mg PO at bedtime, titrate up to 30 mg over several weeks.(this does have an ODT formulation) b. Provide patient education on mechanism of action and timeline for symptom improvement. c. Recommend follow-up with outpatient mental health provider. (2) ELLA (generalized anxiety disorder): Code(s): F41.1 - Generalized anxiety disorder Status: Acute Assessment and Plan: 2. Generalized Anxiety Disorder - Anxiety symptoms persisting for more than 6 months. - ELLA-7 score: 21- Severe - Symptoms include feeling nervous, anxious, on edge, inability to control worrying, excessive worry, trouble relaxing, restlessness, irritability, feeling afraid. - Plan: a. Initiate mirtazapine as detailed in depression management plan. b. Encourage stress-reduction techniques. (3) Weight loss, non-intentional: Code(s): R63.4 - Abnormal weight loss Status: Acute Assessment and Plan: 3. Weight Loss - Patient reports acute weight loss of 50 pounds over past few months. - May be related to depressive symptoms and decreased appetite. - Plan: a. Initiate mirtazapine as detailed above to help increase appetite and promote weight gain. b. Monitor weight. c. continue nutrition consult Plan Initiate Mirtazapine 7.5 mg HS (ODT available) titrate to 15 mg after 2 week. titrate to 30 mg as tolerated. HPI Data of Consult Date/Time: 11/04/24 17:35 Requesting Physician: Chico Arroyo MD Primary Care Provider: Louis Heiwtt MD Consult Narrative Narrative: Miguelito Lopes is a 59 year old male with a long-standing history of depression, initially diagnosed in his thirties. He was brought to the emergency room on November 02, 2024, by his brothers due to abdominal pain and has experienced acute weight loss of 50 pounds over the past few months. He reports severe depression and anxiety symptoms persisting for at least 6 months. The patient endorses feeling nervous, anxious, or on edge, worrying excessively, having trouble relaxing, being restless, easily annoyed or irritable, and feeling afraid nearly every day over the past two weeks. He has tried various antidepressants in the past, including Zoloft, which made him feel real edgy, nervous and caused persistent nausea. Miguelito reports that antidepressants have generally not been helpful. Sleep: Miguelito reports sleep disturbances that have been long standing. The patient denies current suicidal ideation or past suicide attempts. He has been experiencing difficulty swallowing (dysphagia) for the past 2 months and was given a barium swallow test. His recent hospitalization revealed thrombocytopenia (platelet count 118), vitamin D deficiency, and hyponatremia (sodium 133). Miguelito's current medical issues include heart failure with reduced ejection fraction, a history of atrial fibrillation with ablation, chronic pain, and an enlarged prostate. He reports significant weight loss and decreased appetite, which are of particular concern. persistent sadness, feelings of worthlessness, and a sense of failure. He states, I have nothing to look forward to and I am a complete failure as a person. He experiences constant guilt, irritability, and a loss of interest in activities and other people. Miguelito also reports difficulty making decisions, negative self-image, and an inability to work. His ELLA-7 score of 21 indicates severe anxiety, and his Montalvo Depression Inventory score of 58 indicates severe major depressive disorder. Miguelito denies any suicidal thoughts or intentions. Sleep: Miguelito experiences significant sleep disturbances, including difficulty falling asleep, maintaining sleep, and waking up several hours earlier than usual without being able to return to sleep. He reports extreme fatigue, describing himself as too tired to do anything, too weak to do anything. Other Symptoms: Miguelito's appetite has been significantly affected, reporting no appetite at all anymore and a weight loss of more than 15 pounds. He also mentions a complete loss of interest in sex and being preoccupied with physical health concerns, stating, I am so worried about my physical problems I cannot think of anything else. Review of Systems 2 Constitutional: Constitutional: Reports daytime sleepiness, Reports difficulty sleeping, Reports fatigue, Reports lethargy, Reports poor appetite, Reports weakness and Reports weight loss Musculoskeletal: Musculoskeletal: Reports atrophy Psychiatric: Psychiatric: Reports abnormal sleep pattern, Reports anxiety, Reports change in appetite, Reports change in libido, Reports depression, Reports difficulty concentrating, Reports hopelessness, Reports irritability and Reports anhedonia [facility] Past Medical History Medical History (Updated 11/04/24 @ 18:25 by Joe Chaney, [employer] ATTENDANT) Pancreatic lesion Esophagitis Dysphagia Drug induced myoclonus Myoclonic jerking Butterfly rash Acute otitis media Joint pain Spasm of thoracic back muscle Sinusitis Diarrhea BMI 26.0-26.9,adult 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 Left lower quadrant abdominal pain BMI 25.0-25.9,adult BMI 24.0-24.9, adult Umbilical hernia Non-healing skin lesion Eye injury BMI 21.0-21.9, adult Screen for colon cancer Hematuria BMI 22.0-22.9, adult Patellofemoral syndrome, left Cardiomegaly Steatohepatitis Bladder wall thickening Prostate enlargement COPD (chronic obstructive pulmonary disease) DJD (degenerative joint disease) of cervical spine Rotator cuff tear Left inguinal hernia Abdominal hernia Anxiety disorder, unspecified Atrial fibrillation and flutter Congestive heart failure, unspecified Fatty liver Lumbar spondylosis Pulmonary emphysema Surgical History Surgical History History of appendectomy H/O cardiac radiofrequency ablation H/O colonoscopy History of bladder surgery ablation History of vasectomy History of knee surgery History of bunionectomy History of inguinal hernia repair History of umbilical hernia repair Family History Family History Father No problems noted. Mother Thyroid activity decreased Fatty liver Stage 2 liver disease Sibling , covid-19 COVID-19 Other Diabetes mellitus Family history of coronary artery disease Family history of malignant neoplasm Hypertension Social History Social History Smoking status: Never smoker Second hand tobacco smoke exposure: Yes Alcohol intake: never Substance use: never Substance use type: marijuana Other substance usage details: OCCASIONAL Do You Feel Safe in your Home?: Yes Lack of Transportation: No Lack of Food: Never True Current Housing: I Have Housing Concerned About Future Housing: No Difficulty Paying Gas/Electric Bills: No Difficulty Paying for Meds: No Currently Unemployed: No Education: High School Diploma/GED Difficulty w/ Childcare or Family Care: No Living arrangements: alone Additional living arrangements comments: is . 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 Gender identity (if verbalized by the patient): Male Spiritual care concerns: No Meds Home Medications and Allergies Home Medications ?Medication ?Instructions ?Recorded ?Confirmed ?Type metoprolol succinate 50 mg 50 mg PO HS 01/26/22 11/02/24 History tablet,extended release 24 hr tamsulosin 0.4 mg capsule (Flomax) 0.4 mg PO HS 05/04/22 11/02/24 History albuterol sulfate 90 mcg/actuation 2 inh inhalation Q6H PRN shortness 12/12/22 11/02/24 Rx aerosol inhaler of breath or wheezing #8.5 grams apixaban 5 mg tablet (Eliquis) 5 mg PO BID #180 tabs 08/03/23 11/02/24 Rx docusate sodium 100 mg capsule 100 mg PO BID #60 caps 10/02/24 11/02/24 Rx doxycycline monohydrate 100 mg 100 mg PO BID #14 caps 10/02/24 11/02/24 Rx capsule acetaminophen 500 mg capsule 1,000 mg PO Q6H PRN pain 11/02/24 11/02/24 History aspirin 81 mg capsule 81 mg PO DAILY 11/02/24 11/02/24 History clopidogrel 75 mg tablet 75 mg PO DAILY 11/02/24 11/02/24 History fluticasone fur. 100 mcg-umeclid 1 inh inhalation DAILY 11/02/24 11/02/24 History 62.5 mcg-vilant 25 mcg inhalat.powder (Trelegy Ellipta) sennosides 8.6 mg capsule (senna) 17.2 mg PO DAILY 11/02/24 11/02/24 History Allergies Allergy/AdvReac Type Severity Reaction Status Date / Time ciprofloxacin Allergy Intermediate Rash Verified 11/04/24 12:26 Vital Signs Vital Signs - 24 hr 11/03/24 19:55 11/03/24 20:00 11/03/24 20:00 Temperature 97.3 F L Pulse Rate 60 60 86 Respiratory Rate 16 16 Blood Pressure 112/86 Pulse Oximetry 93 93 Oxygen Delivery Room Air Fraction of Inspired Oxygen 11/03/24 21:39 11/04/24 00:00 11/04/24 04:00 Temperature Pulse Rate 72 74 77 Respiratory Rate 20 Blood Pressure Pulse Oximetry 100 Oxygen Delivery Room Air Fraction of Inspired Oxygen 21 11/04/24 04:53 11/04/24 08:15 11/04/24 09:17 Temperature 97.7 F Pulse Rate 71 90 Respiratory Rate 16 16 Blood Pressure 103/74 Pulse Oximetry 96 Oxygen Delivery Room Air Fraction of Inspired Oxygen 11/04/24 09:18 11/04/24 12:00 11/04/24 12:20 Temperature 97.8 F Pulse Rate 90 86 93 Respiratory Rate 20 18 Blood Pressure 122/85 Pulse Oximetry 99 100 Oxygen Delivery Room Air Room Air Fraction of Inspired Oxygen 21 11/04/24 14:14 11/04/24 14:24 11/04/24 14:34 Temperature Pulse Rate 66 65 71 Respiratory Rate 20 18 14 Blood Pressure 82/55 L 92/68 L 104/80 Pulse Oximetry 99 98 100 Oxygen Delivery Room Air Room Air Room Air Fraction of Inspired Oxygen 11/04/24 16:00 Temperature Pulse Rate 86 Respiratory Rate Blood Pressure Pulse Oximetry Oxygen Delivery Fraction of Inspired Oxygen Exam 2 Narrative: Patient resting in bed with brother at bedside. patient has Cachexia appearance. elvin Results Labs 11/04/24 04:54 11/04/24 04:54 Labs: Short CBC 11/04/24 Range/Units 04:54 WBC 4.6 (4.5-10.0) K/mm3 Hgb 12.2 L (14.0-18.0) g/dL Hct 34.5 L (42.0-52.0) % Plt Count 132 L (150-375) k/mm3 BMP 11/04/24 04:54 Sodium 133 L Potassium 2.9 L Chloride 102 Carbon Dioxide 23 BUN 15 D Creatinine 0.84 Glucose 72 Calcium 8.9 Liver Function 11/04/24 Range/Units 04:54 Total Bilirubin 2.1 H (0.2-1.3) mg/dL AST 35 (17-59) U/L ALT 22 (6-50) U/L Alkaline Phosphatase 58 (38-126) U/L Albumin 3.1 L (3.5-5.1) g/dL
[2024-11-04] MEDS: METOPROLOL SUCCINATE EXT REL 50 MG TABCR PO (22:07)
[2024-11-04] MEDS: MIRTAZAPINE 7.5 MG TABLET PO (22:08)
[2024-11-05] VITALS (13 sets, daily range): BP systolic 84–115; BP diastolic 57–86; PULSE 68–104; RESP 14–20; TEMP 36.5–36.7; O2SAT 91–100
[2024-11-05 06:37] LABS: Hematocrit 41.5 % (42.0-52.0); Hemoglobin 14.7 g/dL (14.0-18.0); Immature Granulocyte Percent A 0.4 % (0-0.5); Lymphocytes Absolute Auto 1.40 K/mm3 (0.9-3.2); Mean Corpuscular HGB Conc 35.4 g/dl (32-36); Mean Corpuscular Hemoglobin 32.3 pg (26-34); Mean Corpuscular Volume 91.2 fl (80-100); Nucleated Red Blood Cells Absolute Auto 0.000 K/mm3 (0.0-0.012); Nucleated Red Blood Cells Perc 0.0 % (0.0-0.2); Platelet Count Result 153 k/mm3 (150-375); Red Blood Count 4.55 M/mm3 (4.6-6.20); White Blood Count 4.8 K/mm3 (4.5-10.0)
[2024-11-05 07:04] LABS: Alanine Aminotransferase 27 U/L (6-50); Albumin Level 3.7 g/dL (3.5-5.1); Alkaline Phosphatase 63 U/L (38-126); Anion Gap 7 mmol/L (4-12); Aspartate Amino Transferase 40 U/L (17-59); Bilirubin,Total 2.0 mg/dL (0.2-1.3); Blood Urea Nitrogen 12 mg/dL (9-20); Calcium 9.6 mg/dL (8.4-10.2); Carbon Dioxide 28 mmol/L (22-30); Chloride 102 mmol/L (98-107); Estimated CRCL calculation 55 ml/min; Estimated Glomerular Filt Rate > 60; Glucose 88 mg/dL (65-110); Magnesium 2.2 mg/dL (1.6-2.3); Potassium 3.8 mmol/L (3.4-5.0); Sodium 137 mmol/L (137-145); Total Protein 6.3 g/dL (6.3-8.2)
--- NOTE | 2024-11-05 07:08 | WPDGIPROGNO ---
Progress Note: A&P Assessment and Plan (1) Dysphagia: Qualifiers: Dysphagia type: esophageal phase Qualified Code(s): R13.19 - Other dysphagia Code(s): R13.10 - Dysphagia, unspecified Status: Acute Assessment and Plan: The patient presents with dysphagia, for which a mechanical obstruction has been ruled out. We are awaiting the results of esophageal biopsies to confirm or rule out eosinophilic esophagitis. If the diagnosis is confirmed, we will begin treatment with high-dose PPIs. If the biopsies are negative, an esophageal manometry is planned at [facility] to investigate potential motility disorders, such as achalasia. A significant challenge is the patient's financial situation. He has expressed that he is unable to afford the necessary diagnostic tests, which may impact our ability to complete the workup. Another concern is the finding of a small amount of ascites on a recent MRI. The differential diagnosis includes early peritoneal carcinomatosis, which could explain the patient's severe weight loss and abdominal pain. The patient is not considered a surgical candidate for laparoscopic exploration. A follow-up CT scan will be scheduled at our institution in one month. A colonoscopy is part of the planned workup, but the patient's dysphagia prevents him from tolerating the necessary bowel preparation. The patient has also been evaluated by Psychiatry and diagnosed with severe depression. Antidepressant medication has been recommended. Will follow the patient in 1 month in our office with the CT scan results. Subjective Date/time seen: 11/05/24 07:08 Objective Data Vital Signs Vital Signs: Vital Signs - 24 hr 11/04/24 08:15 11/04/24 09:17 11/04/24 09:18 Temperature Pulse Rate 90 90 Respiratory Rate 16 20 Blood Pressure Pulse Oximetry 99 Oxygen Delivery Room Air Room Air Fraction of Inspired Oxygen 21 11/04/24 12:00 11/04/24 12:20 11/04/24 14:14 Temperature 97.8 F Pulse Rate 86 93 66 Respiratory Rate 18 20 Blood Pressure 122/85 82/55 L Pulse Oximetry 100 99 Oxygen Delivery Room Air Room Air Fraction of Inspired Oxygen 11/04/24 14:24 11/04/24 14:34 11/04/24 16:00 Temperature Pulse Rate 65 71 86 Respiratory Rate 18 14 Blood Pressure 92/68 L 104/80 Pulse Oximetry 98 100 Oxygen Delivery Room Air Room Air Fraction of Inspired Oxygen 11/04/24 20:00 11/04/24 20:00 11/04/24 20:48 Temperature 97.6 F Pulse Rate 93 83 Respiratory Rate 18 Blood Pressure 107/67 Pulse Oximetry 99 Oxygen Delivery Room Air Fraction of Inspired Oxygen 11/04/24 22:07 11/05/24 00:00 11/05/24 03:01 Temperature 97.7 F Pulse Rate 75 68 89 Respiratory Rate 18 Blood Pressure 115/86 Pulse Oximetry 100 Oxygen Delivery Fraction of Inspired Oxygen 11/05/24 04:00 Temperature Pulse Rate 71 Respiratory Rate Blood Pressure Pulse Oximetry Oxygen Delivery Fraction of Inspired Oxygen Intake/Output Intake/Output: Intake & Output 11/02/24 11/03/24 11/04/24 11/05/24 23:59 23:59 23:59 23:59 Intake Total 1999 2650 2040 140 Output Total 2475 Balance 1999 1700 -435 140 Meds/Results Medications: Active Medications Generic Name Dose Route Start Last Admin Trade Name Freq PRN Reason Stop Dose Admin Albuterol 2 puff 11/02/24 21:58 Albuterol Sulfate (*Sp) Aerosol 1 Puff INHALATION Q6HRT PRN shortness of breath or wheezing Bisacodyl 10 mg 11/04/24 16:51 Bisacodyl 10 Mg Suppository RECTAL QAM PRN Constipation Fluticasone/Umeclidinium/Vilanterol 1 puff 11/03/24 08:00 11/04/24 09:17 Fluticasone/Umeclidin/Vilanter 100-62.5-25 Mcg Ellipta INHALATION 1 puff DAILYRT FRANCISCO Administration Metoprolol Succinate 50 mg 11/03/24 21:00 11/04/24 22:07 Metoprolol Succinate Ext Rel 50 Mg Tabcr PO 50 mg HS FRANCISCO Administration Mirtazapine 7.5 mg 11/04/24 21:00 11/04/24 22:08 Mirtazapine 7.5 Mg Tablet PO 7.5 mg HS FRANCISCO Administration Perflutren Lipid Microsphere 0 ml 11/03/24 07:05 Perflutren Lipid Microspheres 1.5 Ml Vial Diluted To 10 Ml Total Volume IV PUSH 11/06/24 07:05 ONCE PRN adequate visualization Protocol Polyethylene Glycol 17 gm 11/05/24 09:00 Polyethylene Glycol 3350 17 Gm Powd.Pack PO QAM FRANCISCO Vitamin D 25 mcg 11/05/24 09:00 Cholecalciferol (Vitamin D3) 25 Mcg (1,000 Units) Tablet PO DAILY FRANCISCO Radiology Results: ITS Impressions Abdomen/Pelvis CT 11/02/24 19:52 IMPRESSION: Right ventricular and right atrial enlargement. Decreased cardiac output may be present given the late arterial appearance of these portal venous timed images. Moderate esophagitis/gastritis. Specific heterogeneity in the medial right hepatic lobe. Possible 14 mm pancreatic head or ampullary lesion. Recommend MR/MRCP of the abdomen without and with contrast for further evaluation of these findings. Consider GI consultation for potential ERCP. Very mild extra hepatic bile duct dilation. Modified Barium Swallow 11/03/24 12:13 IMPRESSION: Patient tolerated regular consistency oral feedings in the upright position. Please correlate with speech pathologist findings and specific feeding recommendations. Barium Swallow X-Ray 11/03/24 12:14 IMPRESSION: 1. Mild esophageal dysmotility with some tertiary contractions in mid to distal esophagus. Otherwise unremarkable esophagram with no masses or strictures. MRCP 11/04/24 09:31 IMPRESSION: 1. Normal pancreas. Nodular appearing region of concern on prior CT upon review of the [address] including sagittal and coronal images suggests this represents artifactual appearance of a nodule resulting from a fold in the duodenum viewed en face. 2. Nonspecific soft tissue tissue edema and small amount of ascites scattered throughout the abdomen and pelvis. 3. Gallbladder sludge with no gallstones or intra or extrahepatic biliary ductal dilation. Labs Labs: Laboratory Results - last 24 hr 11/03/24 11/05/24 04:54 05:47 WBC 4.8 RBC 4.55 L Hgb 14.7 Hct 41.5 L MCV 91.2 MCH 32.3 MCHC 35.4 RDW 13.5 Plt Count 153 MPV 10.2 Immature Gran % (Auto) 0.4 Neut % (Auto) 65.2 Lymph % (Auto) 29.2 [place] % (Auto) 4.8 Eos % (Auto) 0.2 Baso % (Auto) 0.2 Lymph # (Auto) 1.40 [place] # (Auto) 0.2 Eos # (Auto) 0.0 Baso # (Auto) 0.0 Abs Immat Gran (auto) 0.02 Absolute Neuts (auto) 3.1 Absolute Nucleated RBC 0.000 Nucleated RBC % 0.0 Sodium 137 Potassium 3.8 Chloride 102 Carbon Dioxide 28 Anion Gap 7 BUN 12 Creatinine 0.81 Estim Creat Clear Calc 55 Estimated GFR > 60 Glucose 88 Calcium 9.6 Magnesium 2.2 Total Bilirubin 2.0 H AST 40 ALT 27 Alkaline Phosphatase 63 Total Protein 6.3 Albumin 3.7 CA 19-9 Antigen 29
[2024-11-05] MEDS: CHOLECALCIFEROL (VITAMIN D3) 25 MCG (1,000 UNITS) TABLET PO (08:25)
[2024-11-05] MEDS: FLUTICASONE/UMECLIDIN/VILANTER 100-62.5-25 MCG ELLIPTA 1 PUFF INHALATION (09:32)
--- NOTE | 2024-11-05 11:08 | P.PNIM_ITS ---
Progress Note: A&P Assessment and Plan (1) Dysphagia: Qualifiers: Dysphagia type: esophageal phase Qualified Code(s): R13.19 - Other dysphagia Code(s): R13.10 - Dysphagia, unspecified Status: Acute Assessment and Plan: -Structural verses functional - MBS overall unremarkable, speech recommended regular diet and thin liquids -EGD 11/04 with concerns for duodenitis versus celiac disease, but she feels this finding is insufficient to explain the patient's severe weight loss. Biopsies were taken to rule out eosinophilic esophagitis. -further workup of abnormal MRCP as below no acute intervenions for today (2) Adult failure to thrive: Code(s): R62.7 - Adult failure to thrive Status: Acute Assessment and Plan: -Acute weight loss according to pt's brothers of 50+ lb over the course of past of months citing his normal weight is in the 150s, currently 95 lbs -Patient states he cannot eat due to feeling that he has difficulty swallowing and it elicits abdominal pain. -dietitian consulted -workup as above -concern for functional component to patient's symptoms. Family very concerned about patient's mental health and requested psych consult. dietitian consult (3) Esophagitis: Code(s): K20.90 - Esophagitis, unspecified without bleeding Status: Acute Assessment and Plan: -EGD as above, biopsies pending - continue Protonix (4) Pancreatic lesion: Code(s): K86.9 - Disease of pancreas, unspecified Status: Acute Assessment and Plan: -As noted per CT scan a 14 mm pancreatic head or ampullary lesion is present. - MRCP actually showed normal pancreas, CT findings thought to be artifact. Also showed nonspecific soft tissue edema and ascites - does not explain patient's presenting symptoms (5) Ascites: Code(s): R18.8 - Other ascites Status: Acute Assessment and Plan: - MRCP showed small volume ascites and patient has no signs of liver disease to explain this - GI recommended surgery consult due to concern for carcinomatosis. General surgery consult placed. - resume Plavix and Eliquis if no plans for surgical work-up no interventions advised- will resume medication (6) MDD (major depressive disorder): Qualifiers: Active/Remission status: currently active Major depression episode severity: severe Major depression recurrence: recurrent Psychotic features: without psychotic features Qualified Code(s): F33.2 - Major depressive disorder, recurrent severe without psychotic features Code(s): F32.9 - Major depressive disorder, single episode, unspecified Status: Chronic Assessment and Plan: -Patient not currently medicated for depression. -Recommend initiating treatment with SSRI once patient has passed swallow evaluation. -He is not experiencing any suicidal ideation. (7) Pulmonary emphysema: Qualifiers: Emphysema type: unspecified Qualified Code(s): J43.9 - Emphysema, unspecified Code(s): J43.9 - Emphysema, unspecified Status: Chronic Assessment and Plan: -Continue trelegy and albuterol (8) Atrial fibrillation: Code(s): I48.91 - Unspecified atrial fibrillation Status: Acute Assessment and Plan: - on If You Can - [place] work-up - continue metoprolol (9) Thrombocytopenia: Code(s): D69.6 - Thrombocytopenia, unspecified Status: Acute Assessment and Plan: - plt 118 - monitor CBC (10) Vitamin D deficiency: Code(s): E55.9 - Vitamin D deficiency, unspecified Status: Acute Assessment and Plan: - start PO supplementation (11) Chronic HFrEF (heart failure with reduced ejection fraction): Code(s): I50.22 - Chronic systolic (congestive) heart failure Status: Acute Assessment and Plan: - reported history of EF 40% - echo 11/03 with EF 55%, normal diastolic function, small pericardial effusion - BNP elevated, but appears dry - continue home metoprolol, not on ACEi/ARB? Patient has been noncompliant with meds - also had recent closure of hole in the heart a few months ago per brother (12) Prostate enlargement: Code(s): N40.0 - Benign prostatic hyperplasia without lower urinary tract symptoms Status: Acute Assessment and Plan: - noted on admit CT - UA negative - PRN bladder scan (13) Steatohepatitis: Code(s): K75.81 - Nonalcoholic steatohepatitis (LAMB) Status: Acute Assessment and Plan: - per history - monitor LFTs (14) Hypokalemia: Code(s): E87.6 - Hypokalemia Status: Acute Assessment and Plan: -PO/IV replacement ordered -recheck in AM 3.8 today Time Spent With Patient Time with patient: 25 - 35 minutes Subjective Date/time seen: 11/05/24 11:08 Interval history: 59-year-old male patient who appears older than stated age with past medical history of depression, atrial fibrillation status post radioablation at [place] 2 months ago, COPD, heart failure, chronic pain and BPH who presents to the emergency room accompanied by his 2 brothers after they encouraged him to come for complaints decreased p.o. intake for the past 2 months stating he is ?unable to swallow and therefore has not been eating for several weeks or drinking very much. Patient seen and examined at bedside. Initially resistant to EGD, but agreeable this afternoon. Reporting some left lower quadrant pain. Pt is seen and examined. Seen per gi/psych, surgery is following for abd pain. Review of Systems Review of Systems: All systems reviewed & are unremarkable except as noted in HPI and below Exam Narrative: General: frail, cachectic, appears older than stated age Eyes: EOMI ENT: neck supple Cardiovascular: Regular rate and rhythm Respiratory: Clear to auscultation, respirations even and unlabored on RA Gastrointestinal: Soft, mild left lower quadrant tenderness Genitourinary: no suprapubic tenderness Musculoskeletal: No edema, muscle wasting Skin: warm, dry Neuro: Alert. Psych: Mood appropriate Const: General: no acute distress Other: Cachectic and very thin, emaciated male pt lying supine at this time. HENMT: Face/Nose/Sinus: Normal nares present Mouth: Yes dry mucous membranes Eyes: General: appearance normal, both eyes and all related structures Sclera: sclerae normal Pupils: Equal, round and reactive pupils present EOM: EOMs intact bilaterally Neck: Neck: supple and no JVD Thyroid: thyroid normal Lymphatic: lymphadenopathy not noted Resp: Effort & Inspection: normal respiratory effort Auscultation: clear to auscultation bilaterally Cardio: Rate: regular rate Rhythm: regular rhythm Heart sounds: no gallops, no murmurs and no rubs GI: Auscultation: normal bowel sounds Skin: General skin exam: normal color, no rashes or lesions noted, No lesion and rashes Lesions: no lesions noted Rashes: rashes noted Wounds: no wounds Neuro: Cranial nerves: Yes Equal, round and reactive pupils present Speech: normal speech Motor exam (neuro): 5/5 motor strength present throughout and Normal motor muscle tone present throughout Sensory Exam: normal sensation Extrem: General: normal to inspection, no edema and no pedal edema Psych: Mental Status: mental status grossly normal Affect: Sad affect present (flat) Objective Data Vital Signs Vital Signs: Vital Signs - 24 hr 11/04/24 12:00 11/04/24 12:20 11/04/24 14:14 Temperature 97.8 F Pulse Rate 86 93 66 Respiratory Rate 18 20 Blood Pressure 122/85 82/55 L Pulse Oximetry 100 99 Oxygen Delivery Room Air Room Air 11/04/24 14:24 11/04/24 14:34 11/04/24 16:00 Temperature Pulse Rate 65 71 86 Respiratory Rate 18 14 Blood Pressure 92/68 L 104/80 Pulse Oximetry 98 100 Oxygen Delivery Room Air Room Air 11/04/24 20:00 11/04/24 20:00 11/04/24 20:48 Temperature 97.6 F Pulse Rate 93 83 Respiratory Rate 18 Blood Pressure 107/67 Pulse Oximetry 99 Oxygen Delivery Room Air 11/04/24 22:07 11/05/24 00:00 11/05/24 03:01 Temperature 97.7 F Pulse Rate 75 68 89 Respiratory Rate 18 Blood Pressure 115/86 Pulse Oximetry 100 Oxygen Delivery 11/05/24 04:00 11/05/24 08:04 11/05/24 08:25 Temperature Pulse Rate 71 88 Respiratory Rate 20 Blood Pressure Pulse Oximetry 98 Oxygen Delivery Room Air 11/05/24 09:33 11/05/24 09:33 Temperature Pulse Rate 88 88 Respiratory Rate 20 20 Blood Pressure Pulse Oximetry 98 Oxygen Delivery Room Air Intake/Output Intake/Output: Intake & Output 11/02/24 11/03/24 11/04/24 11/05/24 23:59 23:59 23:59 23:59 Intake Total 1999 6837 1132 140 Output Total 5910 300 Balance 1999 2502 -943 -258 Meds/Results Medications: Active Medications Generic Name Dose Route Start Last Admin Trade Name Freq PRN Reason Stop Dose Admin Albuterol 2 puff 11/02/24 21:58 Albuterol Sulfate (*Sp) Aerosol 1 Puff INHALATION Q6HRT PRN shortness of breath or wheezing Bisacodyl 10 mg 11/04/24 16:51 Bisacodyl 10 Mg Suppository RECTAL QAM PRN Constipation Fluticasone/Umeclidinium/Vilanterol 1 puff 11/03/24 08:00 11/05/24 09:32 Fluticasone/Umeclidin/Vilanter 100-62.5-25 Mcg Ellipta INHALATION 1 puff DAILYRT FRANCISCO Administration Metoprolol Succinate 50 mg 11/03/24 21:00 11/04/24 22:07 Metoprolol Succinate Ext Rel 50 Mg Tabcr PO 50 mg HS FRANCISCO Administration Mirtazapine 7.5 mg 11/04/24 21:00 11/04/24 22:08 Mirtazapine 7.5 Mg Tablet PO 7.5 mg HS FRANCISCO Administration Perflutren Lipid Microsphere 0 ml 11/03/24 07:05 Perflutren Lipid Microspheres 1.5 Ml Vial Diluted To 10 Ml Total Volume IV PUSH 11/06/24 07:05 ONCE PRN adequate visualization Protocol Polyethylene Glycol 17 gm 11/05/24 17:00 Polyethylene Glycol 3350 17 Gm Powd.Pack PO BID FRANCISCO Vitamin D 25 mcg 11/05/24 09:00 11/05/24 08:25 Cholecalciferol (Vitamin D3) 25 Mcg (1,000 Units) Tablet PO 25 mcg DAILY FRANCISCO Administration Radiology Results: ITS Impressions Abdomen/Pelvis CT 11/02/24 19:52 IMPRESSION: Right ventricular and right atrial enlargement. Decreased cardiac output may be present given the late arterial appearance of these portal venous timed images. Moderate esophagitis/gastritis. Specific heterogeneity in the medial right hepatic lobe. Possible 14 mm pancreatic head or ampullary lesion. Recommend MR/MRCP of the abdomen without and with contrast for further evaluation of these findings. Consider GI consultation for potential ERCP. Very mild extra hepatic bile duct dilation. Modified Barium Swallow 11/03/24 12:13 IMPRESSION: Patient tolerated regular consistency oral feedings in the upright position. Please correlate with speech pathologist findings and specific feeding recommendations. Barium Swallow X-Ray 11/03/24 12:14 IMPRESSION: 1. Mild esophageal dysmotility with some tertiary contractions in mid to distal esophagus. Otherwise unremarkable esophagram with no masses or strictures. MRCP 11/04/24 09:31 IMPRESSION: 1. Normal pancreas. Nodular appearing region of concern on prior CT upon review of the [address] including sagittal and coronal images suggests this represents artifactual appearance of a nodule resulting from a fold in the duodenum viewed en face. 2. Nonspecific soft tissue tissue edema and small amount of ascites scattered throughout the abdomen and pelvis. 3. Gallbladder sludge with no gallstones or intra or extrahepatic biliary ductal dilation. Labs Labs: Laboratory Results - last 24 hr 11/03/24 11/05/24 04:54 05:47 WBC 4.8 RBC 4.55 L Hgb 14.7 Hct 41.5 L MCV 91.2 MCH 32.3 MCHC 35.4 RDW 13.5 Plt Count 153 MPV 10.2 Immature Gran % (Auto) 0.4 Neut % (Auto) 65.2 Lymph % (Auto) 29.2 [place] % (Auto) 4.8 Eos % (Auto) 0.2 Baso % (Auto) 0.2 Lymph # (Auto) 1.40 [place] # (Auto) 0.2 Eos # (Auto) 0.0 Baso # (Auto) 0.0 Abs Immat Gran (auto) 0.02 Absolute Neuts (auto) 3.1 Absolute Nucleated RBC 0.000 Nucleated RBC % 0.0 Sodium 137 Potassium 3.8 Chloride 102 Carbon Dioxide 28 Anion Gap 7 BUN 12 Creatinine 0.81 Estim Creat Clear Calc 55 Estimated GFR > 60 Glucose 88 Calcium 9.6 Magnesium 2.2 Total Bilirubin 2.0 H AST 40 ALT 27 Alkaline Phosphatase 63 Total Protein 6.3 Albumin 3.7 CA 19-9 Antigen 29 Quality VTE Prophylaxis VTE prophylaxis: mechanical ordered
--- NOTE | 2024-11-05 11:25 | P.PNGS_ITS ---
Progress Note: A&P Assessment and Plan (1) Abdominal pain: Code(s): R10.9 - Unspecified abdominal pain Status: Acute Assessment and Plan: * Abdominal pain that has been ongoing for months with poor oral intake and weight loss. Etiology unclear. No surgical cause for his pain. * Today he is complaining of lower abdominal pain, but mild. No tenderness on exam and pain is not aggravated by eating. * Recommend to stimulate bowels. Encourage oral intake, continue supplements recommended by dietitian. (2) Ascites: Code(s): R18.8 - Other ascites Status: Acute Assessment and Plan: * Unclear etiology. Workup thus far without any definitive findings. No surgical indication at this time. Would refer back to [facility] if no improvement here. (3) Adult failure to thrive: Code(s): R62.7 - Adult failure to thrive Status: Acute Assessment and Plan: * Psychiatric evaluation yesterday. Patient diagnosed with severe depression and started on treatment. * Encourage oral intake and supplements (4) Constipation: Qualifiers: Constipation type: unspecified constipation type Qualified Code(s): K59.00 - Constipation, unspecified Code(s): K59.00 - Constipation, unspecified Status: Chronic Assessment and Plan: * Seems to be a chronic issue. Continue Miralax and dulcolax PRN. Will give an enema later today if still no BM. Plan I have discussed the patient's case and plan of care with Dr. Shah. Subjective Subjective Date/Time Seen: 11/05/24 11:25 Patient reports: no new complaints Interval history: Patient complaining of back pain today. He does report still having some mild abdominal pain, but is stating it is across the lower abdomen. He ate chicken noodle soup earlier this morning and completed the entire soup. He did not have any change in his pain with eating. No BM. He is passing flatus. Exam Const: General: ill appearing chronically Nutritional Appearance: cachectic GI: Inspection: non-distended and scaphoid GI Palp: Yes Soft to palpation, No Tenderness to palpation present (GI), No Guarding due to palpation present (GI) and No Rebound tenderness present Auscultation: Hypoactive bowel sounds present Objective Data Vital Signs Vital Signs: Vital Signs - 24 hr 11/04/24 12:00 11/04/24 12:20 11/04/24 14:14 Temperature 97.8 F Pulse Rate 86 93 66 Respiratory Rate 18 20 Blood Pressure 122/85 82/55 L Pulse Oximetry 100 99 Oxygen Delivery Room Air Room Air 11/04/24 14:24 11/04/24 14:34 11/04/24 16:00 Temperature Pulse Rate 65 71 86 Respiratory Rate 18 14 Blood Pressure 92/68 L 104/80 Pulse Oximetry 98 100 Oxygen Delivery Room Air Room Air 11/04/24 20:00 11/04/24 20:00 11/04/24 20:48 Temperature 97.6 F Pulse Rate 93 83 Respiratory Rate 18 Blood Pressure 107/67 Pulse Oximetry 99 Oxygen Delivery Room Air 11/04/24 22:07 11/05/24 00:00 11/05/24 03:01 Temperature 97.7 F Pulse Rate 75 68 89 Respiratory Rate 18 Blood Pressure 115/86 Pulse Oximetry 100 Oxygen Delivery 11/05/24 04:00 11/05/24 08:04 11/05/24 08:25 Temperature Pulse Rate 71 88 Respiratory Rate 20 Blood Pressure Pulse Oximetry 98 Oxygen Delivery Room Air 11/05/24 09:33 11/05/24 09:33 Temperature Pulse Rate 88 88 Respiratory Rate 20 20 Blood Pressure Pulse Oximetry 98 Oxygen Delivery Room Air Intake/Output Intake/Output: Intake & Output 11/02/24 11/03/24 11/04/24 11/05/24 23:59 23:59 23:59 23:59 Intake Total 1999 2650 2040 140 Output Total 950 0015 300 Balance 1999 1553 -629 -670 Meds/Results Medications: Active Medications Generic Name Dose Route Start Last Admin Trade Name Freq PRN Reason Stop Dose Admin Albuterol 2 puff 11/02/24 21:58 Albuterol Sulfate (*Sp) Aerosol 1 Puff INHALATION Q6HRT PRN shortness of breath or wheezing Bisacodyl 10 mg 11/04/24 16:51 Bisacodyl 10 Mg Suppository RECTAL QAM PRN Constipation Fluticasone/Umeclidinium/Vilanterol 1 puff 11/03/24 08:00 11/05/24 09:32 Fluticasone/Umeclidin/Vilanter 100-62.5-25 Mcg Ellipta INHALATION 1 puff DAILYRT FRANCISCO Administration Metoprolol Succinate 50 mg 11/03/24 21:00 11/04/24 22:07 Metoprolol Succinate Ext Rel 50 Mg Tabcr PO 50 mg HS FRANCISCO Administration Mirtazapine 7.5 mg 11/04/24 21:00 11/04/24 22:08 Mirtazapine 7.5 Mg Tablet PO 7.5 mg HS FRANCISCO Administration Perflutren Lipid Microsphere 0 ml 11/03/24 07:05 Perflutren Lipid Microspheres 1.5 Ml Vial Diluted To 10 Ml Total Volume IV PUSH 11/06/24 07:05 ONCE PRN adequate visualization Protocol Polyethylene Glycol 17 gm 11/05/24 17:00 Polyethylene Glycol 3350 17 Gm Powd.Pack PO BID FRANCISCO Vitamin D 25 mcg 11/05/24 09:00 11/05/24 08:25 Cholecalciferol (Vitamin D3) 25 Mcg (1,000 Units) Tablet PO 25 mcg DAILY FRANCISCO Administration Radiology Results: ITS Impressions Abdomen/Pelvis CT 11/02/24 19:52 IMPRESSION: Right ventricular and right atrial enlargement. Decreased cardiac output may be present given the late arterial appearance of these portal venous timed images. Moderate esophagitis/gastritis. Specific heterogeneity in the medial right hepatic lobe. Possible 14 mm pancreatic head or ampullary lesion. Recommend MR/MRCP of the abdomen without and with contrast for further evaluation of these findings. Consider GI consultation for potential ERCP. Very mild extra hepatic bile duct dilation. Modified Barium Swallow 11/03/24 12:13 IMPRESSION: Patient tolerated regular consistency oral feedings in the upright position. Please correlate with speech pathologist findings and specific feeding recommendations. Barium Swallow X-Ray 11/03/24 12:14 IMPRESSION: 1. Mild esophageal dysmotility with some tertiary contractions in mid to distal esophagus. Otherwise unremarkable esophagram with no masses or strictures. MRCP 11/04/24 09:31 IMPRESSION: 1. Normal pancreas. Nodular appearing region of concern on prior CT upon review of the [address] studies including sagittal and coronal images suggests this represents artifactual appearance of a nodule resulting from a fold in the duodenum viewed en face. 2. Nonspecific soft tissue tissue edema and small amount of ascites scattered throughout the abdomen and pelvis. 3. Gallbladder sludge with no gallstones or intra or extrahepatic biliary ductal dilation. Labs Labs: Laboratory Results - last 24 hr 11/05/24 05:47 WBC 4.8 RBC 4.55 L Hgb 14.7 Hct 41.5 L MCV 91.2 MCH 32.3 MCHC 35.4 RDW 13.5 Plt Count 153 MPV 10.2 Immature Gran % (Auto) 0.4 Neut % (Auto) 65.2 Lymph % (Auto) 29.2 [place] % (Auto) 4.8 Eos % (Auto) 0.2 Baso % (Auto) 0.2 Lymph # (Auto) 1.40 [place] # (Auto) 0.2 Eos # (Auto) 0.0 Baso # (Auto) 0.0 Abs Immat Gran (auto) 0.02 Absolute Neuts (auto) 3.1 Absolute Nucleated RBC 0.000 Nucleated RBC % 0.0 Sodium 137 Potassium 3.8 Chloride 102 Carbon Dioxide 28 Anion Gap 7 BUN 12 Creatinine 0.81 Estim Creat Clear Calc 55 Estimated GFR > 60 Glucose 88 Calcium 9.6 Magnesium 2.2 Total Bilirubin 2.0 H AST 40 ALT 27 Alkaline Phosphatase 63 Total Protein 6.3 Albumin 3.7
[2024-11-05] MEDS: TAMSULOSIN HCL 0.4 MG CAPSULE PO (20:43)
[2024-11-05] MEDS: APIXABAN 5 MG TABLET PO (20:43)
[2024-11-05] MEDS: MIRTAZAPINE 7.5 MG TABLET PO (20:43)
[2024-11-06] VITALS (14 sets, daily range): BP systolic 91–124; BP diastolic 64–96; PULSE 76–155; RESP 18–20; TEMP 36.3–36.8; O2SAT 91–100
[2024-11-06 04:45] LABS: Hematocrit 42.3 % (42.0-52.0); Hemoglobin 14.6 g/dL (14.0-18.0); Immature Granulocyte Percent A 0.2 % (0-0.5); Immature Platelet Fraction Pct 2.1 % (0.9-11.2); Lymphocytes Absolute Auto 2.04 K/mm3 (0.9-3.2); Mean Corpuscular HGB Conc 34.5 g/dl (32-36); Mean Corpuscular Hemoglobin 32.5 pg (26-34); Mean Corpuscular Volume 94.2 fl (80-100); Nucleated Red Blood Cells Absolute Auto 0.000 K/mm3 (0.0-0.012); Nucleated Red Blood Cells Perc 0.0 % (0.0-0.2); Platelet Count Result 130 k/mm3 (150-375); Red Blood Count 4.49 M/mm3 (4.6-6.20); White Blood Count 5.3 K/mm3 (4.5-10.0)
[2024-11-06 05:01] LABS: Alanine Aminotransferase 29 U/L (6-50); Albumin Level 3.6 g/dL (3.5-5.1); Alkaline Phosphatase 64 U/L (38-126); Anion Gap 6 mmol/L (4-12); Aspartate Amino Transferase 36 U/L (17-59); Bilirubin,Total 1.5 mg/dL (0.2-1.3); Blood Urea Nitrogen 15 mg/dL (9-20); Calcium 9.2 mg/dL (8.4-10.2); Carbon Dioxide 27 mmol/L (22-30); Chloride 104 mmol/L (98-107); Estimated CRCL calculation 63 ml/min; Estimated Glomerular Filt Rate > 60; Glucose 132 mg/dL (65-110); Potassium 3.4 mmol/L (3.4-5.0); Sodium 137 mmol/L (137-145); Total Protein 6.3 g/dL (6.3-8.2)
[2024-11-06] MEDS: METOPROLOL SUCCINATE EXT REL 50 MG TABCR PO (06:27)
[2024-11-06] MEDS: METOPROLOL TARTRATE INJ 5 MG/5 ML VIAL IV PUSH (06:40)
--- NOTE | 2024-11-06 06:41 | PC.NURSE ---
2100 metoprolol XR held for hypotension. Pt had onset RVR at 0605, BP improved at that time. Prudencio PILER notified and order received to give metoprolol XR and addtional follow up order for 5mg IV lopressor.
[2024-11-06] MEDS: FLUTICASONE/UMECLIDIN/VILANTER 100-62.5-25 MCG ELLIPTA 1 PUFF INHALATION (07:57)
--- NOTE | 2024-11-06 08:50 | P.PNGS_ITS ---
Progress Note: A&P Assessment and Plan (1) Abdominal pain: Code(s): R10.9 - Unspecified abdominal pain Status: Acute Assessment and Plan: * Patient denies any abdominal pain today. He states that's not the problem and expressed his concerns for his weakness. Sensation intact. I explained to the patient the importance of maintaining adequate oral intake and ambulating with assistance. * No surgical cause for patient's abdominal pain that he complained of yesterday. Bowels stimulated yesterday and patient had one bowel movement. * Encourage oral intake, continue supplements recommended by dietitian. * General surgery will sign off, as there is no surgical indication at this time. (2) Ascites: Code(s): R18.8 - Other ascites Status: Acute Assessment and Plan: * Unclear etiology. Workup thus far without any definitive findings. MRCP yesterday without any acute findings. Nonspecific soft tissue edema and small amount of ascites. EGD pathology still pending. No surgical indication at this time. Would refer back to [facility] if no improvement here. (3) Adult failure to thrive: Code(s): R62.7 - Adult failure to thrive Status: Acute Assessment and Plan: * Psychiatric evaluation 11/04. Patient diagnosed with severe depression and started on treatment. * Encourage oral intake and supplements (4) Constipation: Qualifiers: Constipation type: unspecified constipation type Qualified Code(s): K59.00 - Constipation, unspecified Code(s): K59.00 - Constipation, unspecified Status: Chronic Assessment and Plan: * Seems to be a chronic issue. Bowels stimulated yesterday and he had a bowel movement. Plan I have discussed the patient's case and plan of care with Dr. Shah. Subjective Subjective Date/Time Seen: 11/06/24 08:50 Interval history: Patient states I can't get up. When questioned, he endorsed that he felt weakness in his legs. Sitting up in bed. He states that he has not been eating much. Denies any abdominal pain, nausea, or vomiting. Endorses bowel movement overnight. Of note, pateint's heart rate was noted to be 155 this morning. Two thousand one hundred metoprolol was held for hypotension. Patient had onset of RVR at 0605, BP improved at that time. Metoprolol given as well as 5 mg IV Lopressor. Exam GI: Inspection: non-distended, scaphoid and no visible herniation Auscultation: Hypoactive bowel sounds present Rectal Exam: deferred Skin: General skin exam: normal color and no rashes or lesions noted Extrem: General: normal to inspection Right lower extremity: normal to inspection and full ROM; no edema Left lower extremity: normal to inspection and full ROM; no edema Other: Lower extremity sensation intact. Objective Data Vital Signs Vital Signs: Vital Signs - 24 hr 11/05/24 09:33 11/05/24 09:33 11/05/24 12:03 Temperature Pulse Rate 88 88 94 Respiratory Rate 20 20 Blood Pressure Pulse Oximetry 98 Oxygen Delivery Room Air 11/05/24 13:50 11/05/24 16:04 11/05/24 20:00 Temperature 97.9 F Pulse Rate 84 97 96 Respiratory Rate 14 Blood Pressure 84/57 L Pulse Oximetry 99 Oxygen Delivery 11/05/24 20:00 11/05/24 20:33 11/05/24 20:38 Temperature Pulse Rate 104 H Respiratory Rate Blood Pressure 98/60 L Pulse Oximetry Oxygen Delivery Room Air 11/05/24 22:00 11/06/24 00:00 11/06/24 00:21 Temperature 98.1 F Pulse Rate 86 81 Respiratory Rate 16 Blood Pressure 101/70 Pulse Oximetry 91 91 Oxygen Delivery Room Air 11/06/24 04:00 11/06/24 06:00 11/06/24 06:27 Temperature 98.2 F Pulse Rate 76 113 H 148 H Respiratory Rate 18 Blood Pressure 124/96 H Pulse Oximetry 98 Oxygen Delivery 11/06/24 06:40 11/06/24 07:57 Temperature Pulse Rate 155 H 80 Respiratory Rate 20 Blood Pressure Pulse Oximetry Oxygen Delivery Intake/Output Intake/Output: Intake & Output 11/03/24 11/04/24 11/05/24 11/06/24 23:59 23:59 23:59 23:59 Intake Total 2650 2040 830 300 Output Total 550 9788 719 015 Balance 0504 -077 642 -870 Meds/Results Medications: Active Medications Generic Name Dose Route Start Last Admin Trade Name Freq PRN Reason Stop Dose Admin Albuterol 2 puff 11/02/24 21:58 Albuterol Sulfate (*Sp) Aerosol 1 Puff INHALATION Q6HRT PRN shortness of breath or wheezing Apixaban 5 mg 11/05/24 21:00 11/05/24 20:43 Apixaban 5 Mg Tablet PO 5 mg Q12HR FRANCISCO Administration Bisacodyl 10 mg 11/04/24 16:51 Bisacodyl 10 Mg Suppository RECTAL QAM PRN Constipation Clopidogrel Bisulfate 75 mg 11/06/24 09:00 Clopidogrel Bisulfate 75 Mg Tablet PO DAILY FRANCISCO Fluticasone/Umeclidinium/Vilanterol 1 puff 11/03/24 08:00 11/06/24 07:57 Fluticasone/Umeclidin/Vilanter 100-62.5-25 Mcg Ellipta INHALATION 1 puff DAILYRT FRANCISCO Administration Metoprolol Succinate 50 mg 11/03/24 21:00 11/06/24 06:27 Metoprolol Succinate Ext Rel 50 Mg Tabcr PO 50 mg HS FRANCISCO Administration Mirtazapine 7.5 mg 11/04/24 21:00 11/05/24 20:43 Mirtazapine 7.5 Mg Tablet PO 7.5 mg HS FRANCISCO Administration Polyethylene Glycol 17 gm 11/05/24 17:00 11/05/24 16:13 Polyethylene Glycol 3350 17 Gm Powd.Pack PO 17 gm BID FRANCISCO Administration Tamsulosin HCl 0.4 mg 11/05/24 21:00 11/05/24 20:43 Tamsulosin Hcl 0.4 Mg Capsule PO 0.4 mg HS FRANCISCO Administration Vitamin D 25 mcg 11/05/24 09:00 11/05/24 08:25 Cholecalciferol (Vitamin D3) 25 Mcg (1,000 Units) Tablet PO 25 mcg DAILY FRANCISCO Administration Radiology Results: ITS Impressions Abdomen/Pelvis CT 11/02/24 19:52 IMPRESSION: Right ventricular and right atrial enlargement. Decreased cardiac output may be present given the late arterial appearance of these portal venous timed images. Moderate esophagitis/gastritis. Specific heterogeneity in the medial right hepatic lobe. Possible 14 mm pancreatic head or ampullary lesion. Recommend MR/MRCP of the abdomen without and with contrast for further evaluation of these findings. Consider GI consultation for potential ERCP. Very mild extra hepatic bile duct dilation. Modified Barium Swallow 11/03/24 12:13 IMPRESSION: Patient tolerated regular consistency oral feedings in the upright position. Please correlate with speech pathologist findings and specific feeding recommendations. Barium Swallow X-Ray 11/03/24 12:14 IMPRESSION: 1. Mild esophageal dysmotility with some tertiary contractions in mid to distal esophagus. Otherwise unremarkable esophagram with no masses or strictures. MRCP 11/04/24 09:31 IMPRESSION: 1. Normal pancreas. Nodular appearing region of concern on prior CT upon review of the [address] studies including sagittal and coronal images suggests this represents artifactual appearance of a nodule resulting from a fold in the duodenum viewed en face. 2. Nonspecific soft tissue tissue edema and small amount of ascites scattered throughout the abdomen and pelvis. 3. Gallbladder sludge with no gallstones or intra or extrahepatic biliary ductal dilation. Labs Labs: Laboratory Results - last 24 hr 11/06/24 04:17 WBC 5.3 RBC 4.49 L Hgb 14.6 Hct 42.3 MCV 94.2 MCH 32.5 MCHC 34.5 RDW 13.9 Plt Count 130 L MPV 10.0 Immature Gran % (Auto) 0.2 Neut % (Auto) 55.6 Lymph % (Auto) 38.2 [place] % (Auto) 5.4 Eos % (Auto) 0.2 Baso % (Auto) 0.4 Lymph # (Auto) 2.04 [place] # (Auto) 0.3 Eos # (Auto) 0.0 Baso # (Auto) 0.0 Abs Immat Gran (auto) 0.01 Absolute Neuts (auto) 3.0 Absolute Nucleated RBC 0.000 Nucleated RBC % 0.0 % Immature Plt Fraction 2.1 Sodium 137 Potassium 3.4 Chloride 104 Carbon Dioxide 27 Anion Gap 6 BUN 15 Creatinine 0.69 L Estim Creat Clear Calc 63 Estimated GFR > 60 Glucose 132 H Calcium 9.2 Total Bilirubin 1.5 H AST 36 ALT 29 Alkaline Phosphatase 64 Total Protein 6.3 Albumin 3.6
[2024-11-06] MEDS: CLOPIDOGREL BISULFATE 75 MG TABLET PO (09:17)
[2024-11-06] MEDS: APIXABAN 5 MG TABLET PO ×2 (09:17→20:48)
[2024-11-06] MEDS: CHOLECALCIFEROL (VITAMIN D3) 25 MCG (1,000 UNITS) TABLET PO (09:17)
--- NOTE | 2024-11-06 11:33 | P.PNIM_ITS ---
Progress Note: A&P Assessment and Plan (1) Dysphagia: Qualifiers: Dysphagia type: esophageal phase Qualified Code(s): R13.19 - Other dysphagia Code(s): R13.10 - Dysphagia, unspecified Status: Acute Assessment and Plan: -Structural verses functional - MBS overall unremarkable, speech recommended regular diet and thin liquids -EGD 11/04 with concerns for duodenitis versus celiac disease, but she feels this finding is insufficient to explain the patient's severe weight loss. Biopsies were taken to rule out eosinophilic esophagitis. -further workup of abnormal MRCP as below no acute intervenions for today (2) Adult failure to thrive: Code(s): R62.7 - Adult failure to thrive Status: Acute Assessment and Plan: -Acute weight loss according to pt's brothers of 50+ lb over the course of past of months citing his normal weight is in the 150s, currently 95 lbs -Patient states he cannot eat due to feeling that he has difficulty swallowing and it elicits abdominal pain. -dietitian consulted -workup as above -concern for functional component to patient's symptoms. Family very concerned about patient's mental health and requested psych consult. dietitian consult (3) Esophagitis: Code(s): K20.90 - Esophagitis, unspecified without bleeding Status: Acute Assessment and Plan: -EGD as above, biopsies pending - continue Protonix (4) Pancreatic lesion: Code(s): K86.9 - Disease of pancreas, unspecified Status: Acute Assessment and Plan: -As noted per CT scan a 14 mm pancreatic head or ampullary lesion is present. - MRCP actually showed normal pancreas, CT findings thought to be artifact. Also showed nonspecific soft tissue edema and ascites - does not explain patient's presenting symptoms will need to f/u with GI as an oupt as last visit was while back (5) Ascites: Code(s): R18.8 - Other ascites Status: Acute Assessment and Plan: - MRCP showed small volume ascites and patient has no signs of liver disease to explain this - GI recommended surgery consult due to concern for carcinomatosis. General surgery consult placed. - resume Plavix and Eliquis if no plans for surgical work-up no interventions advised- will resume medication (6) MDD (major depressive disorder): Qualifiers: Major depression recurrence: recurrent Active/Remission status: currently active Major depression episode severity: severe Psychotic features: without psychotic features Qualified Code(s): F33.2 - Major depressive disorder, recurrent severe without psychotic features Code(s): F32.9 - Major depressive disorder, single episode, unspecified Status: Chronic Assessment and Plan: -Patient not currently medicated for depression. -Recommend initiating treatment with SSRI once patient has passed swallow evaluation. -He is not experiencing any suicidal ideation. depressed mood psych following-continue with regimen and titration recommended per psych (7) Pulmonary emphysema: Qualifiers: Emphysema type: unspecified Qualified Code(s): J43.9 - Emphysema, unspecified Code(s): J43.9 - Emphysema, unspecified Status: Chronic Assessment and Plan: -Continue trelegy and albuterol (8) Atrial fibrillation: Code(s): I48.91 - Unspecified atrial fibrillation Status: Acute Assessment and Plan: - on Elilucyis - held for work-up - continue metoprolol (9) Thrombocytopenia: Code(s): D69.6 - Thrombocytopenia, unspecified Status: Acute Assessment and Plan: - plt 118 - monitor CBC (10) Vitamin D deficiency: Code(s): E55.9 - Vitamin D deficiency, unspecified Status: Acute Assessment and Plan: - start PO supplementation (11) Chronic HFrEF (heart failure with reduced ejection fraction): Code(s): I50.22 - Chronic systolic (congestive) heart failure Status: Acute Assessment and Plan: - reported history of EF 40% - echo 11/03 with EF 55%, normal diastolic function, small pericardial effusion - BNP elevated, but appears dry - continue home metoprolol, not on ACEi/ARB? Patient has been noncompliant with meds - also had recent closure of hole in the heart a few months ago per brother stable- no chest pain, no sob (12) Prostate enlargement: Code(s): N40.0 - Benign prostatic hyperplasia without lower urinary tract symptoms Status: Acute Assessment and Plan: - noted on admit CT - UA negative - PRN bladder scan (13) Steatohepatitis: Code(s): K75.81 - Nonalcoholic steatohepatitis (LAMB) Status: Acute Assessment and Plan: - per history - monitor LFTs (14) Hypokalemia: Code(s): E87.6 - Hypokalemia Status: Acute Assessment and Plan: -PO/IV replacement ordered -recheck in AM 3.4 today- will order po replacement (15) Malnutrition: Code(s): E46 - Unspecified protein-calorie malnutrition Status: Acute Assessment and Plan: encourage nutritional supplement Plan Discussed with care coordination as pt stating today he is too weak to go home- interested in rehab. Time Spent With Patient Time with patient: 25 - 35 minutes Subjective Date/time seen: 11/06/24 11:33 Interval history: 59-year-old male patient who appears older than stated age with past medical history of depression, atrial fibrillation status post radioablation at [facility] 2 months ago, COPD, heart failure, chronic pain and BPH who presents to the emergency room accompanied by his 2 brothers after they encouraged him to come for complaints decreased p.o. intake for the past 2 months stating he is ?unable to swallow and therefore has not been eating for several weeks or drinking very much. Patient seen and examined at bedside. Initially resistant to EGD, but agreeable this afternoon. Reporting some left lower quadrant pain. Pt is seen and examined. Seen per gi/psych, surgery is following for abd pain. 11/06 Pt is very anxious about anticipating discharge as he has no shoes, no clothes, he has nothing. Discussed with care coordination, initially, pt declined rehab but now agreeable as he is feeling very weak. He is trying to increase his intake, noted nutritional shake at the bedside. He had BM yesterday. Review of Systems Review of Systems: All systems reviewed & are unremarkable except as noted in HPI and below Exam Narrative: General: frail, cachectic, appears older than stated age Eyes: EOMI ENT: neck supple Cardiovascular: Regular rate and rhythm Respiratory: Clear to auscultation, respirations even and unlabored on RA Gastrointestinal: Soft, mild left lower quadrant tenderness Genitourinary: no suprapubic tenderness Musculoskeletal: No edema, muscle wasting Skin: warm, dry Neuro: Alert. Psych: anxious, flat affect Const: General: no acute distress Other: Cachectic and very thin, emaciated male pt lying supine at this time. HENMT: Face/Nose/Sinus: Normal nares present Mouth: Yes dry mucous membranes Eyes: General: appearance normal, both eyes and all related structures Sclera: sclerae normal Pupils: Equal, round and reactive pupils present EOM: EOMs intact bilaterally Neck: Neck: supple and no JVD Thyroid: thyroid normal Lymphatic: lymphadenopathy not noted Resp: Effort & Inspection: normal respiratory effort Auscultation: clear to auscultation bilaterally Cardio: Rate: regular rate Rhythm: regular rhythm Heart sounds: no gallops, no murmurs and no rubs GI: Auscultation: normal bowel sounds Skin: General skin exam: normal color, no rashes or lesions noted, No lesion and rashes Lesions: no lesions noted Rashes: rashes noted Wounds: no wounds Neuro: Cranial nerves: Yes Equal, round and reactive pupils present Speech: normal speech Motor exam (neuro): 5/5 motor strength present throughout and Normal motor muscle tone present throughout Sensory Exam: normal sensation Extrem: General: normal to inspection, no edema and no pedal edema Psych: Mental Status: mental status grossly normal Affect: Sad affect present (flat) Objective Data Vital Signs Vital Signs: Vital Signs - 24 hr 11/05/24 12:03 11/05/24 13:50 11/05/24 16:04 Temperature 97.9 F Pulse Rate 94 84 97 Respiratory Rate 14 Blood Pressure 84/57 L Pulse Oximetry 99 Oxygen Delivery 11/05/24 20:00 11/05/24 20:00 11/05/24 20:33 Temperature Pulse Rate 96 Respiratory Rate Blood Pressure 98/60 L Pulse Oximetry Oxygen Delivery Room Air 11/05/24 20:38 11/05/24 22:00 11/06/24 00:00 Temperature 98.1 F Pulse Rate 104 H 86 81 Respiratory Rate 16 Blood Pressure 101/70 Pulse Oximetry 91 Oxygen Delivery 11/06/24 00:21 11/06/24 04:00 11/06/24 06:00 Temperature 98.2 F Pulse Rate 76 113 H Respiratory Rate 18 Blood Pressure 124/96 H Pulse Oximetry 91 98 Oxygen Delivery Room Air 11/06/24 06:27 11/06/24 06:40 11/06/24 07:57 Temperature Pulse Rate 148 H 155 H 80 Respiratory Rate 20 Blood Pressure Pulse Oximetry Oxygen Delivery Intake/Output Intake/Output: Intake & Output 11/03/24 11/04/24 11/05/24 11/06/24 23:59 23:59 23:59 23:59 Intake Total 2650 2040 830 400 Output Total 950 2475 600 575 Balance 1700 -472 230 -175 Meds/Results Medications: Active Medications Generic Name Dose Route Start Last Admin Trade Name Freq PRN Reason Stop Dose Admin Albuterol 2 puff 11/02/24 21:58 Albuterol Sulfate (*Sp) Aerosol 1 Puff INHALATION Q6HRT PRN shortness of breath or wheezing Apixaban 5 mg 11/05/24 21:00 11/06/24 09:17 Apixaban 5 Mg Tablet PO 5 mg Q12HR FRANCISCO Administration Bisacodyl 10 mg 11/04/24 16:51 Bisacodyl 10 Mg Suppository RECTAL QAM PRN Constipation Clopidogrel Bisulfate 75 mg 11/06/24 09:00 11/06/24 09:17 Clopidogrel Bisulfate 75 Mg Tablet PO 75 mg DAILY RFANCISCO Administration Fluticasone/Umeclidinium/Vilanterol 1 puff 11/03/24 08:00 11/06/24 07:57 Fluticasone/Umeclidin/Vilanter 100-62.5-25 Mcg Ellipta INHALATION 1 puff DAILYRT FRANCISCO Administration Metoprolol Succinate 50 mg 11/03/24 21:00 11/06/24 06:27 Metoprolol Succinate Ext Rel 50 Mg Tabcr PO 50 mg HS FRANCISCO Administration Mirtazapine 7.5 mg 11/04/24 21:00 11/05/24 20:43 Mirtazapine 7.5 Mg Tablet PO 7.5 mg HS FRANCISCO Administration Polyethylene Glycol 17 gm 11/05/24 17:00 11/06/24 09:17 Polyethylene Glycol 3350 17 Gm Powd.Pack PO 17 gm BID FRANCISCO Administration Tamsulosin HCl 0.4 mg 11/05/24 21:00 11/05/24 20:43 Tamsulosin Hcl 0.4 Mg Capsule PO 0.4 mg HS FRANCISCO Administration Vitamin D 25 mcg 11/05/24 09:00 11/06/24 09:17 Cholecalciferol (Vitamin D3) 25 Mcg (1,000 Units) Tablet PO 25 mcg DAILY FRANCISCO Administration Radiology Results: ITS Impressions Abdomen/Pelvis CT 11/02/24 19:52 IMPRESSION: Right ventricular and right atrial enlargement. Decreased cardiac output may be present given the late arterial appearance of these portal venous timed images. Moderate esophagitis/gastritis. Specific heterogeneity in the medial right hepatic lobe. Possible 14 mm pancreatic head or ampullary lesion. Recommend MR/MRCP of the abdomen without and with contrast for further evaluation of these findings. Consider GI consultation for potential ERCP. Very mild extra hepatic bile duct dilation. Modified Barium Swallow 11/03/24 12:13 IMPRESSION: Patient tolerated regular consistency oral feedings in the upright position. Please correlate with speech pathologist findings and specific feeding recommendations. Barium Swallow X-Ray 11/03/24 12:14 IMPRESSION: 1. Mild esophageal dysmotility with some tertiary contractions in mid to distal esophagus. Otherwise unremarkable esophagram with no masses or strictures. MRCP 11/04/24 09:31 IMPRESSION: 1. Normal pancreas. Nodular appearing region of concern on prior CT upon review of the [address] including sagittal and coronal images suggests this represents artifactual appearance of a nodule resulting from a fold in the duodenum viewed en face. 2. Nonspecific soft tissue tissue edema and small amount of ascites scattered throughout the abdomen and pelvis. 3. Gallbladder sludge with no gallstones or intra or extrahepatic biliary ductal dilation. Labs Labs: Laboratory Results - last 24 hr 11/06/24 04:17 WBC 5.3 RBC 4.49 L Hgb 14.6 Hct 42.3 MCV 94.2 MCH 32.5 MCHC 34.5 RDW 13.9 Plt Count 130 L MPV 10.0 Immature Gran % (Auto) 0.2 Neut % (Auto) 55.6 Lymph % (Auto) 38.2 [place] % (Auto) 5.4 Eos % (Auto) 0.2 Baso % (Auto) 0.4 Lymph # (Auto) 2.04 [place] # (Auto) 0.3 Eos # (Auto) 0.0 Baso # (Auto) 0.0 Abs Immat Gran (auto) 0.01 Absolute Neuts (auto) 3.0 Absolute Nucleated RBC 0.000 Nucleated RBC % 0.0 % Immature Plt Fraction 2.1 Sodium 137 Potassium 3.4 Chloride 104 Carbon Dioxide 27 Anion Gap 6 BUN 15 Creatinine 0.69 L Estim Creat Clear Calc 63 Estimated GFR > 60 Glucose 132 H Calcium 9.2 Total Bilirubin 1.5 H AST 36 ALT 29 Alkaline Phosphatase 64 Total Protein 6.3 Albumin 3.6 Quality VTE Prophylaxis VTE prophylaxis: mechanical ordered
--- NOTE | 2024-11-06 11:43 | PCNFU ---
Nutrition Follow-Up Complete: Severe Protein Calorie Malnutrition as related to inadequate protein energy intake as evidenced by minimal oral intake for >1-2 months; significant weight loss of 23% (30 ibs ) 2 months; severe subcutaneous weight loss (orbital fat pads) and severe muscle wasting (temporalis, clavicle, shoulder) goal: Meet estimated nutritional needs Patient is progressing towards goal. We will continue current goal. Pt current nutrition is Low Fiber with diet supplements. Last recorded weight is 45.3 kg, up from 44.4 kg on admit. Bowel Motility: Last reported BM 11/05 Labs Reviewed: Cr 0.69, Na 132 Meds Noted:Miralax, Remeron, Vit D Skin: WNL Additional Notes: Patient is tolerating a Low Fiber diet. Diet supplements of Ensure Plus High Protein and Nutritional Ice Cream are being provided for additional kcal and protein needs. Agree with diet orders. Will monitor weight, labs, skin, diet orders, meds every 5 days.
[2024-11-06] MEDS: TAMSULOSIN HCL 0.4 MG CAPSULE PO (20:48)
[2024-11-06] MEDS: MIRTAZAPINE 7.5 MG TABLET PO (20:48)
[2024-11-06] MEDS: SODIUM CHLORIDE 0.9% IV 500 ML BAG IVPB (21:58)
[2024-11-07] VITALS (12 sets, daily range): BP systolic 92–104; BP diastolic 62–72; PULSE 66–145; RESP 16–20; TEMP 36.2–36.8; O2SAT 98–100
[2024-11-07 06:07] LABS: Magnesium 2.4 mg/dL (1.6-2.3)
[2024-11-07] MEDS: FLUTICASONE/UMECLIDIN/VILANTER 100-62.5-25 MCG ELLIPTA 1 PUFF INHALATION (08:08)
[2024-11-07] MEDS: CLOPIDOGREL BISULFATE 75 MG TABLET PO (08:58)
[2024-11-07] MEDS: METOPROLOL SUCCINATE EXT REL 50 MG TABCR PO (08:59)
[2024-11-07] MEDS: CHOLECALCIFEROL (VITAMIN D3) 25 MCG (1,000 UNITS) TABLET PO (08:59)
[2024-11-07] MEDS: APIXABAN 5 MG TABLET PO ×2 (08:59→22:04)
[2024-11-07] MEDS: POTASSIUM CHLORIDE 20 MEQ PACKET (FOR LIQUID) 40 MEQ PO (08:59)
[2024-11-07 10:54] LABS: Hematocrit 36.6 % (42.0-52.0); Hemoglobin 12.3 g/dL (14.0-18.0); Mean Corpuscular HGB Conc 33.6 g/dl (32-36); Mean Corpuscular Hemoglobin 31.9 pg (26-34); Mean Corpuscular Volume 95.1 fl (80-100); Platelet Count Result 128 k/mm3 (150-375); Red Blood Count 3.85 M/mm3 (4.6-6.20); White Blood Count 4.0 K/mm3 (4.5-10.0)
[2024-11-07 11:00] LABS: Alanine Aminotransferase 26 U/L (6-50); Albumin Level 3.3 g/dL (3.5-5.1); Alkaline Phosphatase 51 U/L (38-126); Anion Gap 7 mmol/L (4-12); Aspartate Amino Transferase 29 U/L (17-59); Bilirubin,Total 0.8 mg/dL (0.2-1.3); Blood Urea Nitrogen 16 mg/dL (9-20); Calcium 8.9 mg/dL (8.4-10.2); Carbon Dioxide 27 mmol/L (22-30); Chloride 104 mmol/L (98-107); Estimated CRCL calculation 71 ml/min; Estimated Glomerular Filt Rate > 60; Glucose 84 mg/dL (65-110); Potassium 3.9 mmol/L (3.4-5.0); Sodium 138 mmol/L (137-145); Total Protein 5.7 g/dL (6.3-8.2)
--- NOTE | 2024-11-07 11:02 | P.PNIM_ITS ---
Progress Note: A&P Assessment and Plan (1) Dysphagia: Qualifiers: Dysphagia type: esophageal phase Qualified Code(s): R13.19 - Other dysphagia Code(s): R13.10 - Dysphagia, unspecified Status: Acute Assessment and Plan: -Structural verses functional - MBS overall unremarkable, speech recommended regular diet and thin liquids -EGD 11/04 with concerns for duodenitis versus celiac disease, but she feels this finding is insufficient to explain the patient's severe weight loss. Biopsies were taken to rule out eosinophilic esophagitis. -further workup of abnormal MRCP as below no acute intervenions for today 11/07 pt is doing fair- continue to encouraged po intake (2) Adult failure to thrive: Code(s): R62.7 - Adult failure to thrive Status: Acute Assessment and Plan: -Acute weight loss according to pt's brothers of 50+ lb over the course of past of months citing his normal weight is in the 150s, currently 95 lbs -Patient states he cannot eat due to feeling that he has difficulty swallowing and it elicits abdominal pain. -dietitian consulted -workup as above -concern for functional component to patient's symptoms. Family very concerned about patient's mental health and requested psych consult. dietitian consult (3) Esophagitis: Code(s): K20.90 - Esophagitis, unspecified without bleeding Status: Acute Assessment and Plan: -EGD as above, biopsies pending - continue Protonix (4) Pancreatic lesion: Code(s): K86.9 - Disease of pancreas, unspecified Status: Acute Assessment and Plan: -As noted per CT scan a 14 mm pancreatic head or ampullary lesion is present. - MRCP actually showed normal pancreas, CT findings thought to be artifact. Also showed nonspecific soft tissue edema and ascites - does not explain patient's presenting symptoms will need to f/u with GI as an oupt as last visit was while back (5) Ascites: Code(s): R18.8 - Other ascites Status: Acute Assessment and Plan: - MRCP showed small volume ascites and patient has no signs of liver disease to explain this - GI recommended surgery consult due to concern for carcinomatosis. General surgery consult placed. - resume Plavix and Eliquis if no plans for surgical work-up no interventions advised- will resume medication (6) MDD (major depressive disorder): Qualifiers: Active/Remission status: currently active Major depression episode severity: severe Major depression recurrence: recurrent Psychotic features: without psychotic features Qualified Code(s): F33.2 - Major depressive disord er, recurrent severe without psychotic features Code(s): F32.9 - Major depressive disorder, single episode, unspecified Status: Chronic Assessment and Plan: -Patient not currently medicated for depression. -Recommend initiating treatment with SSRI once patient has passed swallow evaluation. -He is not experiencing any suicidal ideation. depressed mood psych following-continue with regimen and titration recommended per psych (7) Pulmonary emphysema: Qualifiers: Emphysema type: unspecified Qualified Code(s): J43.9 - Emphysema, unspecified Code(s): J43.9 - Emphysema, unspecified Status: Chronic Assessment and Plan: -Continue trelegy and albuterol (8) Atrial fibrillation: Code(s): I48.91 - Unspecified atrial fibrillation Status: Acute Assessment and Plan: - on Junis - held for work-up - continue metoprolol episodes of elevated HR ekg ordered tsh checked on 07/08/24- 1.850 currently on metoprolol will consult card for [facility] (9) Thrombocytopenia: Code(s): D69.6 - Thrombocytopenia, unspecified Status: Acute Assessment and Plan: - plt 118 - monitor CBC (10) Vitamin D deficiency: Code(s): E55.9 - Vitamin D deficiency, unspecified Status: Acute Assessment and Plan: - start PO supplementation (11) Chronic HFrEF (heart failure with reduced ejection fraction): Code(s): I50.22 - Chronic systolic (congestive) heart failure Status: Acute Assessment and Plan: - reported history of EF 40% - echo 11/03 with EF 55%, normal diastolic function, small pericardial effusion - BNP elevated, but appears dry - continue home metoprolol, not on ACEi/ARB? Patient has been noncompliant with meds - also had recent closure of hole in the heart a few months ago per brother stable- no chest pain, no sob (12) Prostate enlargement: Code(s): N40.0 - Benign prostatic hyperplasia without lower urinary tract symptoms Status: Acute Assessment and Plan: - noted on admit CT - UA negative - PRN bladder scan (13) Steatohepatitis: Code(s): K75.81 - Nonalcoholic steatohepatitis (LAMB) Status: Acute Assessment and Plan: - per history - monitor LFTs (14) Hypokalemia: Code(s): E87.6 - Hypokalemia Status: Acute Assessment and Plan: -PO/IV replacement ordered -recheck in AM 3.4 today- will order po replacement (15) Malnutrition: Code(s): E46 - Unspecified protein-calorie malnutrition Status: Acute Assessment and Plan: encourage nutritional supplement Plan Discussed with care coordination as pt stating today he is too weak to go home- interested in rehab. Time Spent With Patient Time with patient: 25 - 35 minutes Subjective Date/time seen: 11/07/24 11:02 Interval history: 59-year-old male patient who appears older than stated age with past medical history of depression, atrial fibrillation status post radioablation at [facility] 2 months ago, COPD, heart failure, chronic pain and BPH who presents to the emergency room accompanied by his 2 brothers after they encouraged him to come for complaints decreased p.o. intake for the past 2 months stating he is ?unable to swallow and therefore has not been eating for several weeks or drinking very much. Patient seen and examined at bedside. Initially resistant to EGD, but agreeable this afternoon. Reporting some left lower quadrant pain. Pt is seen and examined. Seen per gi/psych, surgery is following for abd pain. 11/06 Pt is very anxious about anticipating discharge as he has no shoes, no clothes, he has nothing. Discussed with care coordination, initially, pt declined rehab but now agreeable as he is feeling very weak. He is trying to increase his intake, noted nutritional shake at the bedside. He had BM yesterday. 11/07 called per nurse as HR was elevated. EKG ordered. pt is not having any chest pain or ob. on metoprol po. voices no acute concerns. Review of Systems Review of Systems: All systems reviewed & are unremarkable except as noted in HPI and below Exam Narrative: General: frail, cachectic, appears older than stated age Eyes: EOMI ENT: neck supple Cardiovascular: Regular rate and rhythm Respiratory: Clear to auscultation, respirations even and unlabored on RA Gastrointestinal: Soft, mild left lower quadrant tenderness Genitourinary: no suprapubic tenderness Musculoskeletal: No edema, muscle wasting Skin: warm, dry Neuro: Alert. Psych: anxious, flat affect Const: General: no acute distress Other: Cachectic and very thin, emaciated male pt lying supine at this time. HENMT: Face/Nose/Sinus: Normal nares present Mouth: Yes dry mucous membranes Eyes: General: appearance normal, both eyes and all related structures Sclera: sclerae normal Pupils: Equal, round and reactive pupils present EOM: EOMs intact bilaterally Neck: Neck: supple and no JVD Thyroid: thyroid normal Lymphatic: lymphadenopathy not noted Resp: Effort & Inspection: normal respiratory effort Auscultation: clear to auscultation bilaterally Cardio: Rate: regular rate Rhythm: regular rhythm Heart sounds: no gallops, no murmurs and no rubs GI: Auscultation: normal bowel sounds Skin: General skin exam: normal color, no rashes or lesions noted, No lesion and rashes Lesions: no lesions noted Rashes: rashes noted Wounds: no wounds Neuro: Cranial nerves: Yes Equal, round and reactive pupils present Speech: normal speech Motor exam (neuro): 5/5 motor strength present throughout and Normal motor muscle tone present throughout Sensory Exam: normal sensation Extrem: General: normal to inspection, no edema and no pedal edema Psych: Mental Status: mental status grossly normal Affect: Sad affect present (flat) Objective Data Vital Signs Vital Signs: Vital Signs - 24 hr 11/06/24 12:03 11/06/24 14:00 11/06/24 16:03 Temperature 97.4 F L Pulse Rate 92 93 81 Respiratory Rate 18 Blood Pressure 91/64 L Pulse Oximetry 100 Oxygen Delivery 11/06/24 20:00 11/06/24 20:00 11/06/24 22:00 Temperature 97.6 F Pulse Rate 83 78 Respiratory Rate 18 Blood Pressure 97/75 L Pulse Oximetry 100 Oxygen Delivery Room Air 11/07/24 00:00 11/07/24 00:00 11/07/24 04:00 Temperature Pulse Rate 83 70 Respiratory Rate Blood Pressure 101/71 Pulse Oximetry Oxygen Delivery 11/07/24 06:00 11/07/24 08:08 11/07/24 08:59 Temperature 97.9 F Pulse Rate 66 74 117 H Respiratory Rate 16 20 Blood Pressure 104/69 Pulse Oximetry 99 Oxygen Delivery Intake/Output Intake/Output: Intake & Output 11/04/24 11/05/24 11/06/24 11/07/24 23:59 23:59 23:59 23:59 Intake Total 2040 830 900 700 Output Total 2475 600 1175 1500 Balance -435 258 -480 -220 Meds/Results Medications: Active Medications Generic Name Dose Route Start Last Admin Trade Name Freq PRN Reason Stop Dose Admin Albuterol 2 puff 11/02/24 21:58 Albuterol Sulfate (*Sp) Aerosol 1 Puff INHALATION Q6HRT PRN shortness of breath or wheezing Apixaban 5 mg 11/05/24 21:00 11/07/24 08:59 Apixaban 5 Mg Tablet PO 5 mg Q12HR FRANCISCO Administration Bisacodyl 10 mg 11/04/24 16:51 Bisacodyl 10 Mg Suppository RECTAL QAM PRN Constipation Clopidogrel Bisulfate 75 mg 11/06/24 09:00 11/07/24 08:58 Clopidogrel Bisulfate 75 Mg Tablet PO 75 mg DAILY FRANCISCO Administration Fluticasone/Umeclidinium/Vilanterol 1 puff 11/03/24 08:00 11/07/24 08:08 Fluticasone/Umeclidin/Vilanter 100-62.5-25 Mcg Ellipta INHALATION 1 puff DAILYRT FRANCISCO Administration Sodium Chloride 1,000 mls @ 999 mls/hr 11/07/24 10:37 Normal Saline Iv IV CONT 11/07/24 11:37 .Q1H1M ONE Metoprolol Succinate 50 mg 11/07/24 09:00 11/07/24 08:59 Metoprolol Succinate Ext Rel 50 Mg Tabcr PO 50 mg QAM FRANCISCO Administration Mirtazapine 7.5 mg 11/04/24 21:00 11/06/24 20:48 Mirtazapine 7.5 Mg Tablet PO 7.5 mg HS FRANCISCO Administration Polyethylene Glycol 17 gm 11/05/24 17:00 11/07/24 08:59 Polyethylene Glycol 3350 17 Gm Powd.Pack PO 17 gm BID FRANCISCO Administration Potassium Chloride 40 meq 11/07/24 09:00 11/07/24 08:59 Potassium Chloride 20 Meq Packet (For Liquid) PO 40 meq DAILY FRANCISCO Administration Tamsulosin HCl 0.4 mg 11/05/24 21:00 11/06/24 20:48 Tamsulosin Hcl 0.4 Mg Capsule PO 0.4 mg HS FRANCISCO Administration Vitamin D 25 mcg 11/05/24 09:00 11/07/24 08:59 Cholecalciferol (Vitamin D3) 25 Mcg (1,000 Units) Tablet PO 25 mcg DAILY FRANCISCO Administration Radiology Results: ITS Impressions Abdomen/Pelvis CT 11/02/24 19:52 IMPRESSION: Right ventricular and right atrial enlargement. Decreased cardiac output may be present given the late arterial appearance of these portal venous timed images. Moderate esophagitis/gastritis. Specific heterogeneity in the medial right hepatic lobe. Possible 14 mm pancreatic head or ampullary lesion. Recommend MR/MRCP of the abdomen without and with contrast for further evaluation of these findings. Consider GI consultation for potential ERCP. Very mild extra hepatic bile duct dilation. Modified Barium Swallow 11/03/24 12:13 IMPRESSION: Patient tolerated regular consistency oral feedings in the upright position. Please correlate with speech pathologist findings and specific feeding recommendations. Barium Swallow X-Ray 11/03/24 12:14 IMPRESSION: 1. Mild esophageal dysmotility with some tertiary contractions in mid to distal esophagus. Otherwise unremarkable esophagram with no masses or strictures. MRCP 11/04/24 09:31 IMPRESSION: 1. Normal pancreas. Nodular appearing region of concern on prior CT upon review of the [address] including sagittal and coronal images suggests this represents artifactual appearance of a nodule resulting from a fold in the duodenum viewed en face. 2. Nonspecific soft tissue tissue edema and small amount of ascites scattered throughout the abdomen and pelvis. 3. Gallbladder sludge with no gallstones or intra or extrahepatic biliary ductal dilation. Labs Labs: Laboratory Results - last 24 hr 11/07/24 11/07/24 04:55 05:01 WBC 4.0 L RBC 3.85 L Hgb 12.3 L Hct 36.6 L MCV 95.1 MCH 31.9 MCHC 33.6 RDW 14.1 Plt Count 128 L MPV 11.2 H Sodium 138 Potassium 3.9 Chloride 104 Carbon Dioxide 27 Anion Gap 7 BUN 16 Creatinine 0.61 L Estim Creat Clear Calc 71 Estimated GFR > 60 Glucose 84 Calcium 8.9 Phosphorus 2.3 L Magnesium 2.4 H Total Bilirubin 0.8 AST 29 ALT 26 Alkaline Phosphatase 51 Total Protein 5.7 L Albumin 3.3 L Quality VTE Prophylaxis VTE prophylaxis: mechanical ordered
[2024-11-07] MEDS: SODIUM CHLORIDE 0.9% IV 1,000 ML 999 ML IV CONT (11:50)
--- NOTE | 2024-11-07 13:52 | ECG_ITS ---
Test Date: 2024-11-07 14:22:05 Measurements Intervals Beauty Rate: 107 P: 0 MN: 0 QRS: 268 QRSD: 156 T: 59 QT: 362 QTc: 485 Interpretive Statements ATRIAL FIBRILLATION WITH RAPID VENTRICULAR RESPONSE RIGHT AXIS DEVIATION RIGHT BUNDLE BRANCH BLOCK BASELINE ARTIFACT- I, II, III, AVR, AVL, AVF, V1-V2, V4-V6 ABNORMAL ECG Compared to ECG 11/03/2024 09:50:57 HEART RATE HAS INCREASED Electronically Signed On 11-07-2024 14:50:20 CDT by Ney Wright D.O.
[2024-11-07] MEDS: MIRTAZAPINE 7.5 MG TABLET PO (22:04)
[2024-11-07] MEDS: TAMSULOSIN HCL 0.4 MG CAPSULE PO (22:04)
[2024-11-08] VITALS (12 sets, daily range): BP systolic 88–106; BP diastolic 54–71; PULSE 62–98; RESP 16–18; TEMP 36.1–36.6; O2SAT 91–99
[2024-11-08] MEDS: FLUTICASONE/UMECLIDIN/VILANTER 100-62.5-25 MCG ELLIPTA 1 PUFF INHALATION (08:41)
[2024-11-08] MEDS: CLOPIDOGREL BISULFATE 75 MG TABLET PO (09:34)
[2024-11-08] MEDS: CHOLECALCIFEROL (VITAMIN D3) 25 MCG (1,000 UNITS) TABLET PO (09:34)
[2024-11-08] MEDS: APIXABAN 5 MG TABLET PO ×2 (09:34→22:08)
[2024-11-08] MEDS: POTASSIUM CHLORIDE 20 MEQ PACKET (FOR LIQUID) 40 MEQ PO (09:40)
--- NOTE | 2024-11-08 09:52 | P.DS_ITS ---
DS: Discharge Diagnosis Discharge Diagnosis (1) Dysphagia: Qualifiers: Dysphagia type: esophageal phase Qualified Code(s): R13.19 - Other dysphagia Code(s): R13.10 - Dysphagia, unspecified Status: Acute Assessment and Plan: -Structural verses functional - MBS overall unremarkable, speech recommended regular diet and thin liquids -EGD 11/04 with concerns for duodenitis versus celiac disease, but she feels this finding is insufficient to explain the patient's severe weight loss. Biopsies were taken to rule out eosinophilic esophagitis. -further workup of abnormal MRCP as below no acute intervenions for today 11/07 pt is doing fair- continue to encouraged po intake (2) Adult failure to thrive: Code(s): R62.7 - Adult failure to thrive Status: Acute Assessment and Plan: -Acute weight loss according to pt's brothers of 50+ lb over the course of past of months citing his normal weight is in the 150s, currently 95 lbs -Patient states he cannot eat due to feeling that he has difficulty swallowing and it elicits abdominal pain. -dietitian consulted -workup as above -concern for functional component to patient's symptoms. Family very concerned about patient's mental health and requested psych consult. dietitian consult (3) Esophagitis: Code(s): K20.90 - Esophagitis, unspecified without bleeding Status: Acute Assessment and Plan: -EGD as above, biopsies pending - continue Protonix (4) Pancreatic lesion: Code(s): K86.9 - Disease of pancreas, unspecified Status: Acute Assessment and Plan: -As noted per CT scan a 14 mm pancreatic head or ampullary lesion is present. - MRCP actually showed normal pancreas, CT findings thought to be artifact. Also showed nonspecific soft tissue edema and ascites - does not explain patient's presenting symptoms will need to f/u with GI as an oupt as last visit was while back (5) Ascites: Code(s): R18.8 - Other ascites Status: Acute Assessment and Plan: - MRCP showed small volume ascites and patient has no signs of liver disease to explain this - GI recommended surgery consult due to concern for carcinomatosis. General surgery consult placed. - resume Plavix and Eliquis if no plans for surgical work-up no interventions advised- will resume medication (6) MDD (major depressive disorder): Qualifiers: Active/Remission status: currently active Major depression episode severity: severe Major depression recurrence: recurrent Psychotic features: without psychotic features Qualified Code(s): F33.2 - Major depressive d isorder, recurrent severe without psychotic features Code(s): F32.9 - Major depressive disorder, single episode, unspecified Status: Chronic Assessment and Plan: -Patient not currently medicated for depression. -Recommend initiating treatment with SSRI once patient has passed swallow evaluation. -He is not experiencing any suicidal ideation. depressed mood psych following-continue with regimen and titration recommended per psych (7) Pulmonary emphysema: Qualifiers: Emphysema type: unspecified Qualified Code(s): J43.9 - Emphysema, unspecified Code(s): J43.9 - Emphysema, unspecified Status: Chronic Assessment and Plan: -Continue trelegy and albuterol (8) Atrial fibrillation: Code(s): I48.91 - Unspecified atrial fibrillation Status: Acute Assessment and Plan: - on Eliquis - held for work-up - continue metoprolol episodes of elevated HR ekg ordered tsh checked on 07/08/24- 1.850 currently on metoprolol will consult card for [facility] (9) Thrombocytopenia: Code(s): D69.6 - Thrombocytopenia, unspecified Status: Acute Assessment and Plan: - plt 118 - monitor CBC (10) Vitamin D deficiency: Code(s): E55.9 - Vitamin D deficiency, unspecified Status: Acute Assessment and Plan: - start PO supplementation (11) Chronic HFrEF (heart failure with reduced ejection fraction): Code(s): I50.22 - Chronic systolic (congestive) heart failure Status: Acute Assessment and Plan: - reported history of EF 40% - echo 11/03 with EF 55%, normal diastolic function, small pericardial effusion - BNP elevated, but appears dry - continue home metoprolol, not on ACEi/ARB? Patient has been noncompliant with meds - also had recent closure of hole in the heart a few months ago per brother stable- no chest pain, no sob (12) Prostate enlargement: Code(s): N40.0 - Benign prostatic hyperplasia without lower urinary tract symptoms Status: Acute Assessment and Plan: - noted on admit CT - UA negative - PRN bladder scan (13) Steatohepatitis: Code(s): K75.81 - Nonalcoholic steatohepatitis (LAMB) Status: Acute Assessment and Plan: - per history - monitor LFTs (14) Hypokalemia: Code(s): E87.6 - Hypokalemia Status: Acute Assessment and Plan: -PO/IV replacement ordered -recheck in AM 3.4 today- will order po replacement (15) Malnutrition: Code(s): E46 - Unspecified protein-calorie malnutrition Status: Acute Assessment and Plan: encourage nutritional supplement Plan Discussed with care coordination as pt stating today he is too weak to go home- interested in rehab. DS: Summary Time Spent with Patient Time attestation: Total time spent providing and/or coordinating discharge services: Exam Narrative: General: frail, cachectic, appears older than stated age Eyes: EOMI ENT: neck supple Cardiovascular: Regular rate and rhythm Respiratory: Clear to auscultation, respirations even and unlabored on RA Gastrointestinal: Soft, mild left lower quadrant tenderness Genitourinary: no suprapubic tenderness Musculoskeletal: No edema, muscle wasting Skin: warm, dry Neuro: Alert. Psych: anxious, flat affect Const: General: no acute distress Other: Cachectic and very thin, emaciated male pt lying supine at this time. HENMT: Face/Nose/Sinus: Normal nares present Mouth: Yes dry mucous membranes Eyes: General: appearance normal, both eyes and all related structures Sclera: sclerae normal Pupils: Equal, round and reactive pupils present EOM: EOMs intact bilaterally Neck: Neck: supple and no JVD Thyroid: thyroid normal Lymphatic: lymphadenopathy not noted Resp: Effort & Inspection: normal respiratory effort Auscultation: clear to auscultation bilaterally Cardio: Rate: regular rate Rhythm: regular rhythm Heart sounds: no gallops, no murmurs and no rubs GI: Auscultation: normal bowel sounds Skin: General skin exam: normal color, no rashes or lesions noted, No lesion and rashes Lesions: no lesions noted Rashes: rashes noted Wounds: no wounds Neuro: Cranial nerves: Yes Equal, round and reactive pupils present Speech: normal speech Motor exam (neuro): 5/5 motor strength present throughout and Normal motor muscle tone present throughout Sensory Exam: normal sensation Extrem: General: normal to inspection, no edema and no pedal edema Psych: Mental Status: mental status grossly normal Affect: Sad affect present (flat) DS: Data Data Completed and Pending Completed studies during hospitalization: Pending at discharge 11/04/24 14:13 Surgical [PTH] Routine Labs on day of discharge: Labs from last 24 hours 11/07/24 11/07/24 05:01 04:55 WBC 4.0 L RBC 3.85 L Hgb 12.3 L Hct 36.6 L MCV 95.1 MCH 31.9 MCHC 33.6 RDW 14.1 Plt Count 128 L MPV 11.2 H Sodium 138 Potassium 3.9 Chloride 104 Carbon Dioxide 27 Anion Gap 7 BUN 16 Creatinine 0.61 L Estim Creat Clear Calc 71 Estimated GFR > 60 Glucose 84 Calcium 8.9 Total Bilirubin 0.8 AST 29 ALT 26 Alkaline Phosphatase 51 Total Protein 5.7 L Albumin 3.3 L Discharge Plan Discharge Consulting providers: Fior Null; Jose Alba; Gloria Chavez Patient Language: [place] Discharge Medications: No Action tamsulosin [Flomax] 0.4 mg capsule 0.4 mg PO HS metoprolol succinate 50 mg tablet extended release 24 hr 50 mg PO HS Patient Comments: pt stated has not taken since he has not been able to eat acetaminophen 500 mg capsule 1,000 mg PO Q6H PRN (Reason: pain) aspirin 81 mg capsule 81 mg PO DAILY Patient Comments: pt stated stopped taking when could not eat clopidogrel 75 mg tablet 75 mg PO DAILY Patient Comments: pt stated stopped taking medication when he could not eat senna 8.6 mg capsule 17.2 mg PO DAILY Trelegy Ellipta 100-62.5-25 mcg blister with device 1 inh inhalation DAILY docusate sodium 100 mg capsule 100 mg PO BID Qty: 60 0RF doxycycline monohydrate 100 mg capsule 100 mg PO BID Qty: 14 0RF albuterol sulfate 90 mcg/actuation HFA aerosol inhaler 2 inh inhalation Q6H PRN (Reason: shortness of breath or wheezing) Qty: 8.5 2RF Eliquis 5 mg tablet 5 mg PO BID Qty: 180 0RF Patient Comments: Pt stated he quit taking when he could not eat Date of admission: 11/03/24 07:58 Primary Care Provider: Louis Hewitt Admitting Provider: Chico Arroyo Attending physician on admission: Chico Arroyo Condition: Serious Quality VTE Prophylaxis VTE prophylaxis: mechanical ordered
--- NOTE | 2024-11-08 10:52 | P.CONCA_ITS ---
Assessment and Plan Assessment and plan (1) Atrial fibrillation: Code(s): I48.91 - Unspecified atrial fibrillation Status: Acute Assessment and Plan: Continue metoprolol succinate for rate control 50 mg daily. He does have a recent ASD closure at [facility]. Recommendation is to continue triple therapy with aspirin, clopidogrel and Eliquis for 1 month after procedure. Procedure was performed on September 15, 2024. After 1 month recommendation is to discontinue aspirin. Therefore will stop his aspirin. Continue clopidogrel and Eliquis. At 2 months it is then recommended to stop his clopidogrel and then continue Eliquis indefinitely. 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 intake Narrative: Date of service 11/08/2024 Reason for consultation: Atrial fibrillation management Requesting provider: Melissa Piedra History: Patient is a 59-year-old male will who was admitted for weakness and failure to thrive. He had gone weeks without eating. He was recently at [facility]. He has a history of atrial fibrillation status post ablation, will liver disease, COPD who was admitted for abdominal discomfort and was found have a large ostium secundum ASD and persistent left superior vena cava. He was seen by interventional cardiology and he underwent an ASD closure with an Amplatzer device on 09/15/2024. He then was later discharged and came back to this hospital because of the aforementioned failure to thrive, generalized weakness, weight loss. Cardiology consultation was requested for assistance in atrial fibrillation management. Patient does state that he feels his atrial fibrillation at times describes as palpitations. Has had no bleeding issues. No syncope, paroxysmal nocturnal dyspnea, orthopnea, edema. No chest pain except for that related to the AFib. Review of Systems 2 Review of Systems: All systems reviewed & are unremarkable except as noted in HPI and below Constitutional: Constitutional: Denies body ache(s) Eyes: Eyes: Denies blurry vision ENT: Reports Normal hearing present Cardiovascular: Cardiovascular: Denies chest pain and Reports palpitations Respiratory: Respiratory: Denies hemoptysis Gastrointestinal: Gastrointestinal: Denies abdominal pain Genitourinary: Genitourinary: Denies hematuria Musculoskeletal: Musculoskeletal: Denies arthralgias Integumentary/Breasts: Skin/Breast: Denies dry skin Neurologic: Denies Abnormal speech present Psychiatric: Psychiatric: Denies anxiety and Reports depression Endocrine: Endocrine: Denies excessive sweating Hematologic/Lymphatic: Hematologic/Lymphatic: Denies easy bleeding Allergic/Immunologic: Allergic/Immunologic: Denies GI upset with certain foods PMFSH Past Medical History Medical History (Updated 11/08/24 @ 10:59 by Tejas Angeles MD) ASD (atrial septal defect) Pancreatic lesion Esophagitis Dysphagia Drug induced myoclonus Myoclonic jerking Butterfly rash Acute otitis media Joint pain Spasm of thoracic back muscle Sinusitis Diarrhea BMI 26.0-26.9,adult 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 Left lower quadrant abdominal pain BMI 25.0-25.9,adult BMI 24.0-24.9, adult Umbilical hernia Non-healing skin lesion Eye injury BMI 21.0-21.9, adult Screen for colon cancer Hematuria BMI 22.0-22.9, adult Patellofemoral syndrome, left Cardiomegaly Steatohepatitis Bladder wall thickening Prostate enlargement COPD (chronic obstructive pulmonary disease) DJD (degenerative joint disease) of cervical spine Rotator cuff tear Left inguinal hernia Abdominal hernia Anxiety disorder, unspecified Atrial fibrillation and flutter Congestive heart failure, unspecified Fatty liver Lumbar spondylosis Pulmonary emphysema Surgical History Surgical History History of appendectomy H/O cardiac radiofrequency ablation H/O colonoscopy History of bladder surgery ablation History of vasectomy History of knee surgery History of bunionectomy History of inguinal hernia repair History of umbilical hernia repair Family History Family History Father No problems noted. Mother Thyroid activity decreased Fatty liver Stage 2 liver disease Sibling , covid-19 COVID-19 Other Diabetes mellitus Family history of coronary artery disease Family history of malignant neoplasm Hypertension Social History Social History Smoking status: Never smoker Second hand tobacco smoke exposure: Yes Alcohol intake: never Substance use: never Substance use type: marijuana Other substance usage details: OCCASIONAL Do You Feel Safe in your Home?: Yes Lack of Transportation: No Lack of Food: Never True Current Housing: I Have Housing Concerned About Future Housing: No Difficulty Paying Gas/Electric Bills: No Difficulty Paying for Meds: No Currently Unemployed: No Education: High School Diploma/GED Difficulty w/ Childcare or Family Care: No Living arrangements: alone Additional living arrangements comments: is . 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 Gender identity (if verbalized by the patient): Male Spiritual care concerns: No Meds Home Medications and Allergies Home Medications ?Medication ?Instructions ?Recorded ?Confirmed ?Type metoprolol succinate 50 mg 50 mg PO HS 01/26/22 11/02/24 History tablet,extended release 24 hr tamsulosin 0.4 mg capsule (Flomax) 0.4 mg PO HS 05/04/22 11/02/24 History albuterol sulfate 90 mcg/actuation 2 inh inhalation Q6H PRN shortness 12/12/22 11/02/24 Rx aerosol inhaler of breath or wheezing #8.5 grams apixaban 5 mg tablet (Eliquis) 5 mg PO BID #180 tabs 08/03/23 11/02/24 Rx docusate sodium 100 mg capsule 100 mg PO BID #60 caps 10/02/24 11/02/24 Rx doxycycline monohydrate 100 mg 100 mg PO BID #14 caps 10/02/24 11/02/24 Rx capsule acetaminophen 500 mg capsule 1,000 mg PO Q6H PRN pain 11/02/24 11/02/24 History aspirin 81 mg capsule 81 mg PO DAILY 11/02/24 11/02/24 History clopidogrel 75 mg tablet 75 mg PO DAILY 11/02/24 11/02/24 History fluticasone fur. 100 mcg-umeclid 1 inh inhalation DAILY 11/02/24 11/02/24 History 62.5 mcg-vilant 25 mcg inhalat.powder (Trelegy Ellipta) sennosides 8.6 mg capsule (senna) 17.2 mg PO DAILY 11/02/24 11/02/24 History Allergies Allergy/AdvReac Type Severity Reaction Status Date / Time ciprofloxacin Allergy Intermediate Rash Verified 11/04/24 12:26 Vital Signs Vital Signs - 24 hr 11/07/24 12:03 11/07/24 14:00 11/07/24 16:00 Temperature 36.2 C L Pulse Rate 92 145 H 95 Respiratory Rate 20 Blood Pressure 92/72 L Pulse Oximetry 100 Oxygen Delivery 11/07/24 20:00 11/07/24 21:28 11/07/24 21:50 Temperature 36.8 C Pulse Rate 95 99 Respiratory Rate 16 Blood Pressure Pulse Oximetry 98 Oxygen Delivery Room Air 11/07/24 21:52 11/08/24 00:00 11/08/24 04:49 Temperature 36.1 C L Pulse Rate 62 70 Respiratory Rate 18 Blood Pressure 98/62 L 106/71 Pulse Oximetry 91 Oxygen Delivery 11/08/24 04:57 11/08/24 08:41 11/08/24 08:42 Temperature Pulse Rate 86 72 72 Respiratory Rate 18 18 Blood Pressure Pulse Oximetry Oxygen Delivery Exam 2 Narrative: Awake appears stated age but appears cachectic Const: General: comfortable and no acute distress HENMT: Ears: TM's normal bilaterally Face/Nose/Sinus: Normal nares present Eyes: General: appearance normal, both eyes and all related structures S clera: sclerae normal Neck: Neck: supple and no JVD Chest: Other: No reproducible chest wall pain to palpation Resp: Effort & Inspection: normal respiratory effort Auscultation: clear to auscultation bilaterally Cardio: Rate: regular rate Rhythm: abnormal rhythm irregularly irregular GI: Inspection: non-distended GI Palp: Yes Soft to palpation Skin: General skin exam: normal color Neuro: Speech: normal speech Sensory Exam: normal sensation Extrem: General: no edema Psych: Affect: Sad affect present Results Labs and Meds 11/07/24 04:55 11/07/24 05:01 Lab results: Cardiac Enzymes 11/07/24 Range/Units 05:01 AST 29 (17-59) U/L CBC 11/07/24 Range/Units 04:55 WBC 4.0 L (4.5-10.0) K/mm3 RBC 3.85 L (4.6-6.20) M/mm3 Hgb 12.3 L (14.0-18.0) g/dL Hct 36.6 L (42.0-52.0) % Plt Count 128 L (150-375) k/mm3 Comprehensive Metabolic Panel 11/07/24 Range/Units 05:01 Sodium 138 (137-145) mmol/L Potassium 3.9 (3.4-5.0) mmol/L Chloride 104 (98-107) mmol/L Carbon Dioxide 27 (22-30) mmol/L BUN 16 (9-20) mg/dL Creatinine 0.61 L (0.7-1.3) mg/dL Glucose 84 (65-110) mg/dL Calcium 8.9 (8.4-10.2) mg/dL AST 29 (17-59) U/L ALT 26 (6-50) U/L Alkaline Phosphatase 51 (38-126) U/L Total Protein 5.7 L (6.3-8.2) g/dL Albumin 3.3 L (3.5-5.1) g/dL Intake and Output 11/07/24 11/08/24 11/08/24 23:59 07:59 15:59 Intake Total 480 200 240 Output Total 300 Balance 180 200 240 Intake: Oral 480 200 240 Output: Urine 300 Other: # Unmeasured Voids 1 3 Number of Bowel Movements Today 1 Patient Weight 11/08/24 23:59 Weight 45.9 kg EKG is personally reviewed and independently interpreted showing atrial fibrillation with right bundle-branch block and right axis deviation. Echo2. Left ventricular chamber dimension is normal. 3. Left ventricular systolic function is normal, estimated at 55-60. 4. The left ventricular diastolic function is normal. 5. E/e' 7 is not elevated. 6. Atrial fibrillation. 7. Left atrial chamber dimension is mildly enlarged. 8. Right atrial chamber dimension is mildly enlarged. 9. There is mild aortic valve sclerosis. 10. There is mild tricuspid valve regurgitation. 11. No pulmonary hypertension, estimated pulmonary arterial systolic pressure is 20 mmHg. 12. There is small pericardial effusion located to right of heart measured at 0.9 cm.
[2024-11-08] MEDS: METOPROLOL SUCCINATE EXT REL 50 MG TABCR PO (11:18)
--- NOTE | 2024-11-08 13:14 | P.PNIM_ITS ---
Progress Note: A&P Assessment and Plan (1) Dysphagia: Qualifiers: Dysphagia type: esophageal phase Qualified Code(s): R13.19 - Other dysphagia Code(s): R13.10 - Dysphagia, unspecified Status: Acute Assessment and Plan: -Structural verses functional - MBS overall unremarkable, speech recommended regular diet and thin liquids -EGD 11/04 with concerns for duodenitis versus celiac disease, but she feels this finding is insufficient to explain the patient's severe weight loss. Biopsies were taken to rule out eosinophilic esophagitis. -further workup of abnormal MRCP as below no acute intervenions for today 11/07 pt is doing fair- continue to encouraged po intake (2) Adult failure to thrive: Code(s): R62.7 - Adult failure to thrive Status: Acute Assessment and Plan: -Acute weight loss according to pt's brothers of 50+ lb over the course of past of months citing his normal weight is in the 150s, currently 95 lbs -Patient states he cannot eat due to feeling that he has difficulty swallowing and it elicits abdominal pain. -dietitian consulted -workup as above -concern for functional component to patient's symptoms. Family very concerned about patient's mental health and requested psych consult. supplements encouraged (3) Esophagitis: Code(s): K20.90 - Esophagitis, unspecified without bleeding Status: Acute Assessment and Plan: -EGD as above, biopsies pending - continue Protonix (4) Pancreatic lesion: Code(s): K86.9 - Disease of pancreas, unspecified Status: Acute Assessment and Plan: -As noted per CT scan a 14 mm pancreatic head or ampullary lesion is present. - MRCP actually showed normal pancreas, CT findings thought to be artifact. Also showed nonspecific soft tissue edema and ascites - does not explain patient's presenting symptoms will need to f/u with GI as an oupt as last visit was while back (5) Ascites: Code(s): R18.8 - Other ascites Status: Acute Assessment and Plan: - MRCP showed small volume ascites and patient has no signs of liver disease to explain this - GI recommended surgery consult due to concern for carcinomatosis. General surgery consult placed. - resume Plavix and Eliquis if no plans for surgical work-up no interventions advised- will resume medication (6) MDD (major depressive disorder): Qualifiers: Major depression recurrence: recurrent Active/Remission status: currently active Major depression episode severity: severe Psychotic features: without psychotic features Qualified Code(s): F33.2 - Major depressive d isorder, recurrent severe without psychotic features Code(s): F32.9 - Major depressive disorder, single episode, unspecified Status: Chronic Assessment and Plan: -Patient not currently medicated for depression. -Recommend initiating treatment with SSRI once patient has passed swallow evaluation. -He is not experiencing any suicidal ideation. depressed mood psych following-continue with regimen and titration recommended per psych Start mirtazapine 7.5 mg or 15 mg PO at bedtime, titrate up to 30 mg over several weeks.(this does have an ODT formulation) (7) Pulmonary emphysema: Qualifiers: Emphysema type: unspecified Qualified Code(s): J43.9 - Emphysema, unspecified Code(s): J43.9 - Emphysema, unspecified Status: Chronic Assessment and Plan: -Continue trelegy and albuterol (8) Atrial fibrillation: Code(s): I48.91 - Unspecified atrial fibrillation Status: Acute Assessment and Plan: - [facility] - held for work-up - continue metoprolol episodes of elevated HR ekg ordered tsh checked on 07/08/24- 1.850 currently on [facility]rol[facility] (9) Thrombocytopenia: Code(s): D69.6 - Thrombocytopenia, unspecified Status: Acute Assessment and Plan: - plt 118 - monitor CBC (10) Vitamin D deficiency: Code(s): E55.9 - Vitamin D deficiency, unspecified Status: Acute Assessment and Plan: - start PO supplementation (11) Chronic HFrEF (heart failure with reduced ejection fraction): Code(s): I50.22 - Chronic systolic (congestive) heart failure Status: Acute Assessment and Plan: - reported history of EF 40% - echo 11/03 with EF 55%, normal diastolic function, small pericardial effusion - BNP elevated, but appears dry - continue home metoprolol, not on ACEi/ARB? Patient has been noncompliant with meds - also had recent closure of hole in the heart a few months ago per brother stable- no chest pain, no sob (12) Prostate enlargement: Code(s): N40.0 - Benign prostatic hyperplasia without lower urinary tract symptoms Status: Acute Assessment and Plan: - noted on admit CT - UA negative - PRN bladder scan (13) Steatohepatitis: Code(s): K75.81 - Nonalcoholic steatohepatitis (LAMB) Status: Acute Assessment and Plan: - per history - monitor LFTs (14) Hypokalemia: Code(s): E87.6 - Hypokalemia Status: Acute Assessment and Plan: -PO/IV replacement ordered -recheck in AM 3.4 today- will order po replacement (15) Malnutrition: Code(s): E46 - Unspecified protein-calorie malnutrition Status: Acute Assessment and Plan: encourage nutritional supplement Plan Discussed with care coordination as pt stating today he is too weak to go home- interested in rehab. Time Spent With Patient Time with patient: 25 - 35 minutes Subjective Date/time seen: 11/08/24 13:14 Interval history: 59-year-old male patient who appears older than stated age with past medical history of depression, atrial fibrillation status post radioablation at [facility] 2 months ago, COPD, heart failure, chronic pain and BPH who presents to the emergency room accompanied by his 2 brothers after they encouraged him to come for complaints decreased p.o. intake for the past 2 months stating he is ?unable to swallow and therefore has not been eating for several weeks or drinking very much. Patient seen and examined at bedside. Initially resistant to EGD, but agreeable this afternoon. Reporting some left lower quadrant pain. Pt is seen and examined. Seen per gi/psych, surgery is following for abd pain. 11/06 Pt is very anxious about anticipating discharge as he has no shoes, no clothes, he has nothing. Discussed with care coordination, initially, pt declined rehab but now agreeable as he is feeling very weak. He is trying to increase his intake, noted nutritional shake at the bedside. He had BM yesterday. 11/07 called per nurse as HR was elevated. EKG ordered. pt is not having any chest pain or ob. on metoprol po. voices no acute concerns. 11/08 hr stable overnight. cardiology consulted, recommendation reviewed. placeme nt pending. pt is stabl,e voices no acute concerns. mood still depressed. Review of Systems Review of Systems: All systems reviewed & are unremarkable except as noted in HPI and below Exam Narrative: General: frail, cachectic, appears older than stated age Eyes: EOMI ENT: neck supple Cardiovascular: Regular rate and rhythm Respiratory: Clear to auscultation, respirations even and unlabored on RA Gastrointestinal: Soft, mild left lower quadrant tenderness Genitourinary: no suprapubic tenderness Musculoskeletal: No edema, muscle wasting Skin: warm, dry Neuro: Alert. Psych: anxious, flat affect Const: General: no acute distress Other: Cachectic and very thin, emaciated male pt lying supine at this time. HENMT: Face/Nose/Sinus: Normal nares present Mouth: Yes dry mucous membranes Eyes: General: appearance normal, both eyes and all related structures Sclera: sclerae normal Pupils: Equal, round and reactive pupils present EOM: EOMs intact bilaterally Neck: Neck: supple and no JVD Thyroid: thyroid normal Lymphatic: lymphadenopathy not noted Resp: Effort & Inspection: normal respiratory effort Auscultation: clear to auscultation bilaterally Cardio: Rate: regular rate Rhythm: regular rhythm Heart sounds: no gallops, no murmurs and no rubs GI: Auscultation: normal bowel sounds Skin: General skin exam: normal color, no rashes or lesions noted, No lesion and rashes Lesions: no lesions noted Rashes: rashes noted Wounds: no wounds Neuro: Cranial nerves: Yes Equal, round and reactive pupils present Speech: normal speech Motor exam (neuro): 5/5 motor strength present throughout and Normal motor muscle tone present throughout Sensory Exam: normal sensation Extrem: General: normal to inspection, no edema and no pedal edema Psych: Mental Status: mental status grossly normal Affect: Sad affect present (flat) Objective Data Vital Signs Vital Signs: Vital Signs - 24 hr 11/07/24 14:00 11/07/24 16:00 11/07/24 20:00 Temperature 97.1 F L Pulse Rate 145 H 95 95 Respiratory Rate 20 Blood Pressure 92/72 L Pulse Oximetry 100 Oxygen Delivery 11/07/24 21:28 11/07/24 21:50 11/07/24 21:52 Temperature 98.3 F Pulse Rate 99 Respiratory Rate 16 Blood Pressure 98/62 L Pulse Oximetry 98 Oxygen Delivery Room Air 11/08/24 00:00 11/08/24 04:49 11/08/24 04:57 Temperature 97 F L Pulse Rate 62 70 86 Respiratory Rate 18 Blood Pressure 106/71 Pulse Oximetry 91 Oxygen Delivery 11/08/24 08:41 11/08/24 08:42 11/08/24 11:18 Temperature Pulse Rate 72 72 98 Respiratory Rate 18 18 Blood Pressure Pulse Oximetry Oxygen Delivery Intake/Output Intake/Output: Intake & Output 11/05/24 11/06/24 11/07/24 11/08/24 23:59 23:59 23:59 23:59 Intake Total 802 020 7478 680 Output Total 600 1175 1800 Balance 106 -601 -759 680 Meds/Results Medications: Active Medications Generic Name Dose Route Start Last Admin Trade Name Freq PRN Reason Stop Dose Admin Albuterol 2 puff 11/02/24 21:58 Albuterol Sulfate (*Sp) Aerosol 1 Puff INHALATION Q6HRT PRN shortness of breath or wheezing Apixaban 5 mg 11/05/24 21:00 11/08/24 09:34 Apixaban 5 Mg Tablet PO 5 mg Q12HR FRANCISCO Administration Bisacodyl 10 mg 11/04/24 16:51 Bisacodyl 10 Mg Suppository RECTAL QAM PRN Constipation Clopidogrel Bisulfate 75 mg 11/06/24 09:00 11/08/24 09:34 Clopidogrel Bisulfate 75 Mg Tablet PO 75 mg DAILY FRANCISCO Administration Fluticasone/Umeclidinium/Vilanterol 1 puff 11/03/24 08:00 11/08/24 08:41 Fluticasone/Umeclidin/Vilanter 100-62.5-25 Mcg Ellipta INHALATION 1 puff DAILYRT FRANCISCO Administration Metoprolol Succinate 50 mg 11/07/24 09:00 11/08/24 11:18 Metoprolol Succinate Ext Rel 50 Mg Tabcr PO 50 mg QAM FRANCISCO Administration Mirtazapine 7.5 mg 11/04/24 21:00 08/15/25 22:04 Mirtazapine 7.5 Mg Tablet PO 7.5 mg HS FRANCISCO Administration Polyethylene Glycol 17 gm 11/05/24 17:00 11/08/24 09:34 Polyethylene Glycol 3350 17 Gm Powd.Pack PO 17 gm BID FRANCISCO Administration Potassium Chloride 40 meq 11/07/24 09:00 11/08/24 09:40 Potassium Chloride 20 Meq Packet (For Liquid) PO 40 meq DAILY FRANCISCO Administration Tamsulosin HCl 0.4 mg 11/05/24 21:00 11/07/24 22:04 Tamsulosin Hcl 0.4 Mg Capsule PO 0.4 mg HS FRANCISCO Administration Vitamin D 25 mcg 11/05/24 09:00 11/08/24 09:34 Cholecalciferol (Vitamin D3) 25 Mcg (1,000 Units) Tablet PO 25 mcg DAILY FRANCISCO Administration Radiology Results: ITS Impressions Abdomen/Pelvis CT 11/02/24 19:52 IMPRESSION: Right ventricular and right atrial enlargement. Decreased cardiac output may be present given the late arterial appearance of these portal venous timed images. Moderate esophagitis/gastritis. Specific heterogeneity in the medial right hepatic lobe. Possible 14 mm pancreatic head or ampullary lesion. Recommend MR/MRCP of the abdomen without and with contrast for further evaluation of these findings. Consider GI consultation for potential ERCP. Very mild extra hepatic bile duct dilation. Modified Barium Swallow 11/03/24 12:13 IMPRESSION: Patient tolerated regular consistency oral feedings in the upright position. Please correlate with speech pathologist findings and specific feeding recommendations. Barium Swallow X-Ray 11/03/24 12:14 IMPRESSION: 1. Mild esophageal dysmotility with some tertiary contractions in mid to distal esophagus. Otherwise unremarkable esophagram with no masses or strictures. MRCP 11/04/24 09:31 IMPRESSION: 1. Normal pancreas. Nodular appearing region of concern on prior CT upon review of the [address] including sagittal and coronal images suggests this represents artifactual appearance of a nodule resulting from a fold in the duodenum viewed en face. 2. Nonspecific soft tissue tissue edema and small amount of ascites scattered throughout the abdomen and pelvis. 3. Gallbladder sludge with no gallstones or intra or extrahepatic biliary ductal dilation. Quality VTE Prophylaxis VTE prophylaxis: mechanical ordered
[2024-11-08] MEDS: MIRTAZAPINE 7.5 MG TABLET PO (22:08)
[2024-11-08] MEDS: TAMSULOSIN HCL 0.4 MG CAPSULE PO (22:08)
[2024-11-09] VITALS (11 sets, daily range): BP systolic 86–109; BP diastolic 55–80; PULSE 69–121; RESP 16; TEMP 36.1–36.6; O2SAT 96–100
--- NOTE | 2024-11-09 09:04 | P.PNCA_ITS ---
Progress Note: A&P Assessment and Plan (1) Atrial fibrillation: Code(s): I48.91 - Unspecified atrial fibrillation Status: Acute Assessment and Plan: Continue metoprolol succinate for rate control. He does have a recent ASD closure at [place]. Recommendation is to continue triple therapy with aspirin, clopidogrel and Eliquis for 1 month after procedure. Procedure was performed on September 15, 2024. After 1 month, recommendation was to discontinue aspirin. Therefore Stopped aspirin yesterday. Continue clopidogrel and Eliquis. At 2 months it is then recommended to stop his clopidogrel and then continue Eliquis indefinitely. 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 Continue Eliquis and clopidogrel for now. The above anticoagulant/anti-platelet recommendations were also discussed and verbally understood by patient and patient's family member (4) Generalized weakness: Code(s): R53.1 - Weakness Status: Acute Assessment and Plan: Per hospitalist Subjective Date/time seen: 11/09/24 09:04 Interval history: 59-year-old male patient who appears older than stated age with past medical history of depression, atrial fibrillation status post radioablation at [place] 2 months ago, COPD, heart failure, chronic pain and BPH who presents to the emergency room accompanied by his 2 brothers after they encouraged him to come for complaints decreased p.o. intake for the past 2 months stating he is ?unable to swallow and therefore has not been eating for several weeks or drinking very much. Date of service 11/09/2024: Still feels very weak, cachectic. No chest pain or shortness of breath. Review of Systems Review of Systems: All systems reviewed & are unremarkable except as noted in HPI and below Constitutional: Constitutional: Denies body ache(s) and Denies excessive sweating Eyes: Eyes: Denies blurry vision ENT: Reports Normal hearing present Cardiovascular: Cardiovascular: Denies chest pain and Reports palpitations Respiratory: Respiratory: Denies hemoptysis Gastrointestinal: Gastrointestinal: Denies abdominal pain Genitourinary: Genitourinary: Denies hematuria Musculoskeletal: Musculoskeletal: Denies arthralgias Integumentary/Breasts: Skin/Breast: Denies dry skin Neurologic: Reports Normal hearing present and Denies Abnormal speech present Psychiatric: Psychiatric: Denies anxiety and Reports depression Endocrine: Endocrine: Denies excessive sweating and Reports palpitations Hematologic/Lymphatic: Hematologic/Lymphatic: Denies easy bleeding Allergic/Immunologic: Allergic/Immunologic: Denies GI upset with certain foods Exam Narrative: Awake appears stated age but appears cachectic Const: General: comfortable and no acute distress HENMT: Ears: TM's normal bilaterally Face/Nose/Sinus: Normal nares present Eyes: General: appearance normal, both eyes and all related structures Sclera: sclerae normal Neck: Neck: supple and no JVD Chest: Other: No reproducible chest wall pain to palpation Resp: Effort & Inspection: normal respiratory effort Auscultation: clear to auscultation bilaterally Cardio: Rate: regular rate Rhythm: abnormal rhythm irregularly irregular GI: Inspection: non-distended Skin: General skin exam: normal color Neuro: Cranial nerves: Yes Normal hearing present Speech: normal speech and No Abnormal speech present Sensory Exam: normal sensation Extrem: General: no edema Psych: Affect: Sad affect present Objective Data Vital Signs Vital Signs: Vital Signs - 24 hr 11/08/24 11:18 11/08/24 12:00 11/08/24 14:00 Temperature 36.3 C L Pulse Rate 98 88 80 Respiratory Rate 16 Blood Pressure 88/54 L Pulse Oximetry 99 Oxygen Delivery 11/08/24 16:00 11/08/24 20:00 11/08/24 20:10 Temperature 36.6 C Pulse Rate 75 85 74 Respiratory Rate 16 Blood Pressure 105/66 Pulse Oximetry 99 Oxygen Delivery 11/08/24 22:00 11/09/24 00:00 11/09/24 04:00 Temperature Pulse Rate 69 84 Respiratory Rate Blood Pressure Pulse Oximetry Oxygen Delivery Room Air 11/09/24 05:58 Temperature 36.6 C Pulse Rate 91 Respiratory Rate 16 Blood Pressure 109/80 Pulse Oximetry 100 Oxygen Delivery Intake/Output Intake/Output: Intake & Output 11/06/24 11/07/24 11/08/24 11/09/24 23:59 23:59 23:59 23:59 Intake Total 900 1420 920 250 Output Total 1175 1800 Balance -275 -380 920 250 Meds/Results Medications: Active Medications Generic Name Dose Route Start Last Admin Trade Name Freq PRN Reason Stop Dose Admin Albuterol 2 puff 11/02/24 21:58 Albuterol Sulfate (*Sp) Aerosol 1 Puff INHALATION Q6HRT PRN shortness of breath or wheezing Apixaban 5 mg 11/05/24 21:00 11/08/24 22:08 Apixaban 5 Mg Tablet PO 5 mg Q12HR FRANCISCO Administration Bisacodyl 10 mg 11/04/24 16:51 Bisacodyl 10 Mg Suppository RECTAL QAM PRN Constipation Clopidogrel Bisulfate 75 mg 11/06/24 09:00 11/08/24 09:34 Clopidogrel Bisulfate 75 Mg Tablet PO 75 mg DAILY FRANCISCO Administration Fluticasone/Umeclidinium/Vilanterol 1 puff 11/03/24 08:00 11/08/24 08:41 Fluticasone/Umeclidin/Vilanter 100-62.5-25 Mcg Ellipta INHALATION 1 puff DAILYRT FRANCISCO Administration Metoprolol Succinate 50 mg 11/07/24 09:00 11/08/24 11:18 Metoprolol Succinate Ext Rel 50 Mg Tabcr PO 50 mg QAM FRANCISCO Administration Mirtazapine 7.5 mg 11/04/24 21:00 11/08/24 22:08 Mirtazapine 7.5 Mg Tablet PO 7.5 mg HS FRANCISCO Administration Polyethylene Glycol 17 gm 11/05/24 17:00 11/08/24 17:49 Polyethylene Glycol 3350 17 Gm Powd.Pack PO Not Given BID FRANCISCO Potassium Chloride 40 meq 11/07/24 09:00 11/08/24 09:40 Potassium Chloride 20 Meq Packet (For Liquid) PO 40 meq DAILY FRANCISCO Administration Tamsulosin HCl 0.4 mg 11/05/24 21:00 11/08/24 22:08 Tamsulosin Hcl 0.4 Mg Capsule PO 0.4 mg HS FRANCISCO Administration Vitamin D 25 mcg 11/05/24 09:00 11/08/24 09:34 Cholecalciferol (Vitamin D3) 25 Mcg (1,000 Units) Tablet PO 25 mcg DAILY FRANCISCO Administration Radiology Results: ITS Impressions Abdomen/Pelvis CT 11/02/24 19:52 IMPRESSION: Right ventricular and right atrial enlargement. Decreased cardiac output may be present given the late arterial appearance of these portal venous timed images. Moderate esophagitis/gastritis. Specific heterogeneity in the medial right hepatic lobe. Possible 14 mm pancreatic head or ampullary lesion. Recommend MR/MRCP of the abdomen without and with contrast for further evaluation of these findings. Consider GI consultation for potential ERCP. Very mild extra hepatic bile duct dilation. Modified Barium Swallow 11/03/24 12:13 IMPRESSION: Patient tolerated regular consistency oral feedings in the upright position. Please correlate with speech pathologist findings and specific feeding recommendations. Barium Swallow X-Ray 11/03/24 12:14 IMPRESSION: 1. Mild esophageal dysmotility with some tertiary contractions in mid to distal esophagus. Otherwise unremarkable esophagram with no masses or strictures. MRCP 11/04/24 09:31 IMPRESSION: 1. Normal pancreas. Nodular appearing region of concern on prior CT upon review of the [address] studies including sagittal and coronal images suggests this represents artifactual appearance of a nodule resulting from a fold in the duodenum viewed en face. 2. Nonspecific soft tissue tissue edema and small amount of ascites scattered throughout the abdomen and pelvis. 3. Gallbladder sludge with no gallstones or intra or extrahepatic biliary ductal dilation.
[2024-11-09] MEDS: FLUTICASONE/UMECLIDIN/VILANTER 100-62.5-25 MCG ELLIPTA 1 PUFF INHALATION (09:29)
[2024-11-09] MEDS: CLOPIDOGREL BISULFATE 75 MG TABLET PO (09:33)
[2024-11-09] MEDS: POTASSIUM CHLORIDE 20 MEQ PACKET (FOR LIQUID) 40 MEQ PO (09:33)
[2024-11-09] MEDS: APIXABAN 5 MG TABLET PO ×2 (09:33→22:14)
[2024-11-09] MEDS: CHOLECALCIFEROL (VITAMIN D3) 25 MCG (1,000 UNITS) TABLET PO (09:33)
--- NOTE | 2024-11-09 11:02 | P.PNIM_ITS ---
Progress Note: A&P Assessment and Plan (1) Dysphagia: Qualifiers: Dysphagia type: esophageal phase Qualified Code(s): R13.19 - Other dysphagia Code(s): R13.10 - Dysphagia, unspecified Status: Acute Assessment and Plan: -Structural verses functional - MBS overall unremarkable, speech recommended regular diet and thin liquids -EGD 11/04 with concerns for duodenitis versus celiac disease, but she feels this finding is insufficient to explain the patient's severe weight loss. Biopsies were taken to rule out eosinophilic esophagitis. -further workup of abnormal MRCP as below no acute interventions for today 11/07 pt is doing fair- continue to encouraged po intake receiving supplements (2) Adult failure to thrive: Code(s): R62.7 - Adult failure to thrive Status: Acute Assessment and Plan: -Acute weight loss according to pt's brothers of 50+ lb over the course of past of months citing his normal weight is in the 150s, currently 95 lbs -Patient states he cannot eat due to feeling that he has difficulty swallowing and it elicits abdominal pain. -dietitian consulted -workup as above -concern for functional component to patient's symptoms. Family very concerned about patient's mental health and requested psych consult. supplements encouraged (3) Esophagitis: Code(s): K20.90 - Esophagitis, unspecified without bleeding Status: Acute Assessment and Plan: -EGD as above, biopsies pending - continue Protonix (4) Pancreatic lesion: Code(s): K86.9 - Disease of pancreas, unspecified Status: Acute Assessment and Plan: -As noted per CT scan a 14 mm pancreatic head or ampullary lesion is present. - MRCP actually showed normal pancreas, CT findings thought to be artifact. Also showed nonspecific soft tissue edema and ascites - does not explain patient's presenting symptoms will need to f/u with GI as an oupt as last visit was while back (5) Ascites: Code(s): R18.8 - Other ascites Status: Acute Assessment and Plan: - MRCP showed small volume ascites and patient has no signs of liver disease to explain this - GI recommended surgery consult due to concern for carcinomatosis. General surgery consult placed. - resume Plavix and Eliquis if no plans for surgical work-up no interventions advised- will resume medication (6) MDD (major depressive disorder): Qualifiers: Active/Remission status: currently active Major depression episode severity: severe Major depression recurrence: recurrent Psychotic features: without psychotic features Qualified Code(s): F33.2 - Major depressive disorder, recurrent severe without psychotic features Code(s): F32.9 - Major depressive disorder, single episode, unspecified Status: Chronic Assessment and Plan: -Patient not currently medicated for depression. -Recommend initiating treatment with SSRI once patient has passed swallow evaluation. -He is not experiencing any suicidal ideation. depressed mood psych following-continue with regimen and titration recommended per psych Start mirtazapine 7.5 mg or 15 mg PO at bedtime, titrate up to 30 mg over several weeks.(this does have an ODT formulation) (7) Pulmonary emphysema: Qualifiers: Emphysema type: unspecified Qualified Code(s): J43.9 - Emphysema, unspecified Code(s): J43.9 - Emphysema, unspecified Status: Chronic Assessment and Plan: -Continue trelegy and albuterol (8) Atrial fibrillation: Code(s): I48.91 - Unspecified atrial fibrillation Status: Acute Assessment and Plan: - on Elilucyis - held for work-up - continue metoprolol episodes of elevated HR ekg ordered tsh checked on 07/08/24- 1.850 currently on metoprolol will consult card for mngmnt cardiology saw pt- appreciate recommendation: Continue metoprolol succinate for rate control. He does have a recent ASD closure at [place]. Recommendation is to continue triple therapy with aspirin, clopidogrel and Eliquis for 1 month after procedure. Procedure was performed on September 15, 2024. After 1 month, recommendation was to discontinue aspirin. Therefore Stopped aspirin yesterday. Continue clopidogrel and Eliquis. At 2 months it is then recommended to stop his clopidogrel and then continue Eliquis indefinitely. (9) Thrombocytopenia: Code(s): D69.6 - Thrombocytopenia, unspecified Status: Acute Assessment and Plan: - plt 118 - monitor CBC (10) Vitamin D deficiency: Code(s): E55.9 - Vitamin D deficiency, unspecified Status: Acute Assessment and Plan: - start PO supplementation (11) Chronic HFrEF (heart failure with reduced ejection fraction): Code(s): I50.22 - Chronic systolic (congestive) heart failure Status: Acute Assessment and Plan: - reported history of EF 40% - echo 11/03 with EF 55%, normal diastolic function, small pericardial effusion - BNP elevated, but appears dry - continue home metoprolol, not on ACEi/ARB? Patient has been noncompliant with meds - also had recent closure of hole in the heart a few months ago per brother stable- no chest pain, no sob (12) Prostate enlargement: Code(s): N40.0 - Benign prostatic hyperplasia without lower urinary tract symptoms Status: Acute Assessment and Plan: - noted on admit CT - UA negative - PRN bladder scan (13) Steatohepatitis: Code(s): K75.81 - Nonalcoholic steatohepatitis (LAMB) Status: Acute Assessment and Plan: - per history - monitor LFTs (14) Hypokalemia: Code(s): E87.6 - Hypokalemia Status: Acute Assessment and Plan: -PO/IV replacement ordered -recheck in AM 3.4 today- will order po replacement (15) Malnutrition: Code(s): E46 - Unspecified protein-calorie malnutrition Status: Acute Assessment and Plan: encourage nutritional supplement Plan waiting from insurance for approval for rehab Time Spent With Patient Time with patient: 25 - 35 minutes Subjective Date/time seen: 11/09/24 11:02 Interval history: 59-year-old male patient who appears older than stated age with past medical history of depression, atrial fibrillation status post radioablation at [place] 2 months ago, COPD, heart failure, chronic pain and BPH who presents to the emergency room accompanied by his 2 brothers after they encouraged him to come for complaints decreased p.o. intake for the past 2 months stating he is ?unable to swallow and therefore has not been eating for several weeks or drinking very much. Pt is seen and examined. Mother at a bedisde, updated on plan of care. NO acute concerns. Pt had BM this morning. Review of Systems Review of Systems: All systems reviewed & are unremarkable except as noted in HPI and below Exam Narrative: General: frail, cachectic, appears older than stated age Eyes: EOMI ENT: neck supple Cardiovascular: Regular rate and rhythm Respiratory: Clear to auscultation, respirations even and unlabored on RA Gastrointestinal: Soft, mild left lower quadrant tenderness Genitourinary: no suprapubic tenderness Musculoskeletal: No edema, muscle wasting Skin: warm, dry Neuro: Alert. Psych: anxious, flat affect Const: General: comfortable Resp: Effort & Inspection: normal respiratory effort Auscultation: clear to auscultation bilaterally Cardio: Heart sounds: no gallops GI: GI Palp: Yes Soft to palpation Psych: Other: flat affect Objective Data Vital Signs Vital Signs: Vital Signs - 24 hr 11/08/24 11:18 11/08/24 12:00 11/08/24 14:00 Temperature 97.3 F L Pulse Rate 98 88 80 Respiratory Rate 16 Blood Pressure 88/54 L Pulse Oximetry 99 Oxygen Delivery 11/08/24 16:00 11/08/24 20:00 11/08/24 20:10 Temperature 98 F Pulse Rate 75 85 74 Respiratory Rate 16 Blood Pressure 105/66 Pulse Oximetry 99 Oxygen Delivery 11/08/24 22:00 11/09/24 00:00 11/09/24 04:00 Temperature Pulse Rate 69 84 Respiratory Rate Blood Pressure Pulse Oximetry Oxygen Delivery Room Air 11/09/24 05:58 11/09/24 08:00 11/09/24 08:00 Temperature 98 F Pulse Rate 91 91 Respiratory Rate 16 Blood Pressure 109/80 Pulse Oximetry 100 Oxygen Delivery Room Air 11/09/24 09:30 Temperature Pulse Rate Respiratory Rate Blood Pressure Pulse Oximetry 98 Oxygen Delivery Room Air Intake/Output Intake/Output: Intake & Output 11/06/24 11/07/24 11/08/24 11/09/24 23:59 23:59 23:59 23:59 Intake Total 900 1420 920 694 Output Total 1175 1800 Balance -275 -380 920 694 Meds/Results Medications: Active Medications Generic Name Dose Route Start Last Admin Trade Name Freq PRN Reason Stop Dose Admin Albuterol 2 puff 11/02/24 21:58 Albuterol Sulfate (*Sp) Aerosol 1 Puff INHALATION Q6HRT PRN shortness of breath or wheezing Apixaban 5 mg 11/05/24 21:00 11/09/24 09:33 Apixaban 5 Mg Tablet PO 5 mg Q12HR FRANCISCO Administration Bisacodyl 10 mg 11/04/24 16:51 Bisacodyl 10 Mg Suppository RECTAL QAM PRN Constipation Clopidogrel Bisulfate 75 mg 11/06/24 09:00 11/09/24 09:33 Clopidogrel Bisulfate 75 Mg Tablet PO 75 mg DAILY FRANCISCO Administration Fluticasone/Umeclidinium/Vilanterol 1 puff 11/09/24 08:00 11/09/24 09:29 Fluticasone/Umeclidin/Vilanter 100-62.5-25 Mcg Ellipta INHALATION 1 puff DAILYRT FRANCISCO Administration Metoprolol Succinate 50 mg 11/07/24 09:00 11/09/24 09:32 Metoprolol Succinate Ext Rel 50 Mg Tabcr PO Not Given QAM FRANCISCO Mirtazapine 7.5 mg 11/04/24 21:00 11/08/24 22:08 Mirtazapine 7.5 Mg Tablet PO 7.5 mg HS FRANCISCO Administration Polyethylene Glycol 17 gm 11/05/24 17:00 11/09/24 09:32 Polyethylene Glycol 3350 17 Gm Powd.Pack PO Not Given BID FRANCISCO Potassium Chloride 40 meq 11/07/24 09:00 11/09/24 09:33 Potassium Chloride 20 Meq Packet (For Liquid) PO 40 meq DAILY FRANCISCO Administration Tamsulosin HCl 0.4 mg 11/05/24 21:00 11/08/24 22:08 Tamsulosin Hcl 0.4 Mg Capsule PO 0.4 mg HS FRANCISCO Administration Vitamin D 25 mcg 11/05/24 09:00 11/09/24 09:33 Cholecalciferol (Vitamin D3) 25 Mcg (1,000 Units) Tablet PO 25 mcg DAILY FRANCISCO Administration Radiology Results: ITS Impressions Abdomen/Pelvis CT 11/02/24 19:52 IMPRESSION: Right ventricular and right atrial enlargement. Decreased cardiac output may be present given the late arterial appearance of these portal venous timed images. Moderate esophagitis/gastritis. Specific heterogeneity in the medial right hepatic lobe. Possible 14 mm pancreatic head or ampullary lesion. Recommend MR/MRCP of the abdomen without and with contrast for further evaluation of these findings. Consider GI consultation for potential ERCP. Very mild extra hepatic bile duct dilation. Modified Barium Swallow 11/03/24 12:13 IMPRESSION: Patient tolerated regular consistency oral feedings in the upright position. Please correlate with speech pathologist findings and specific feeding recommendations. Barium Swallow X-Ray 11/03/24 12:14 IMPRESSION: 1. Mild esophageal dysmotility with some tertiary contractions in mid to distal esophagus. Otherwise unremarkable esophagram with no masses or strictures. MRCP 11/04/24 09:31 IMPRESSION: 1. Normal pancreas. Nodular appearing region of concern on prior CT upon review of the [address] studies including sagittal and coronal images suggests this represents artifactual appearance of a nodule resulting from a fold in the duodenum viewed en face. 2. Nonspecific soft tissue tissue edema and small amount of ascites scattered throughout the abdomen and pelvis. 3. Gallbladder sludge with no gallstones or intra or extrahepatic biliary ductal dilation. Quality VTE Prophylaxis VTE prophylaxis: mechanical ordered
--- NOTE | 2024-11-09 13:46 | PC.NURSE ---
Patient has low BP. RN notified DELROY Giles about it and she requested new orders and for RN to contact online marketing director merchandising intern. RN called merchandising intern online marketing director, MD Angeles, with no response. Message was left.
--- NOTE | 2024-11-09 13:47 | PC.NURSE ---
RN got a phone call back from MD Angeles and was disrespected and belittled by MD. questioned why RN held metoprolol this morning for low BP when it was for heart rate and said RN does not have the right to hold medications and RN does not have the knowledge to do any differently than his orders and he did not hear anything about it from RN. RN did notify and speak in brief with HEATER HELPER and hospitalist Tisha and she was good with RN holding medication during morning pass due to BP and asked to continue to monitor. However, after RN received newest BP, Tisha asked for new orders. MD Angeles told RN to forget those orders and to do nothing. RN notified HEATER HELPER Tisha of this and also told her RN would no longer be communicating with him unless she has already spoken to MD Angeles as he was nothing but inconsiderate, angry, and irrational. DELROY Giles and RN had a lengthy discussion and are agreeable. Both disagree with his comments and lack of orders.
[2024-11-09] MEDS: TAMSULOSIN HCL 0.4 MG CAPSULE PO (22:14)
[2024-11-09] MEDS: MIRTAZAPINE 7.5 MG TABLET PO (22:14)
[2024-11-10] VITALS (9 sets, daily range): BP systolic 82–92; BP diastolic 57–69; PULSE 72–99; RESP 16–18; TEMP 36.2; O2SAT 96–100
--- NOTE | 2024-11-10 08:36 | PCRCNOTE ---
Patient refused Trelegy inhaler
--- NOTE | 2024-11-10 09:24 | P.PNCA_ITS ---
Progress Note: A&P Assessment and Plan (1) Atrial fibrillation: Code(s): I48.91 - Unspecified atrial fibrillation Status: Acute Assessment and Plan: Continue metoprolol succinate for rate control, will decrease dose to 12.5 mg. He does have a recent ASD closure at [place]. Recommendation is to continue triple therapy with aspirin, clopidogrel and Eliquis for 1 month after procedure. Procedure was performed on September 15, 2024. After 1 month, recommendation was to discontinue aspirin. Therefore Stopped aspirin yesterday. Continue clopidogrel and Eliquis. At 2 months it is then recommended to stop his clopidogrel and then continue Eliquis indefinitely. 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 Continue Eliquis and clopidogrel for now. The above anticoagulant/anti-platelet recommendations were also discussed and verbally understood by patient and patient's family member (4) Generalized weakness: Code(s): R53.1 - Weakness Status: Acute Assessment and Plan: Per hospitalist Subjective Date/time seen: 11/10/24 09:24 Interval history: Date of service 11/09/2024: Still feels very weak, cachectic. No chest pain or shortness of breath. 11/10/2024: Feels weak, no chest pain or dyspnea. BP soft Review of Systems Review of Systems: All systems reviewed & are unremarkable except as noted in HPI and below Constitutional: Constitutional: Denies body ache(s) and Denies excessive sweating Eyes: Eyes: Denies blurry vision ENT: Reports Normal hearing present Cardiovascular: Cardiovascular: Denies chest pain and Reports palpitations Respiratory: Respiratory: Denies hemoptysis Gastrointestinal: Gastrointestinal: Denies abdominal pain Genitourinary: Genitourinary: Denies hematuria Musculoskeletal: Musculoskeletal: Denies arthralgias Integumentary/Breasts: Skin/Breast: Denies dry skin Neurologic: Reports Normal hearing present and Denies Abnormal speech present Psychiatric: Psychiatric: Denies anxiety and Reports depression Endocrine: Endocrine: Denies excessive sweating and Reports palpitations Hematologic/Lymphatic: Hematologic/Lymphatic: Denies easy bleeding Allergic/Immunologic: Allergic/Immunologic: Denies GI upset with certain foods Exam Narrative: Awake appears stated age but appears cachectic Const: General: comfortable and no acute distress HENMT: Ears: TM's normal bilaterally Face/Nose/Sinus: Normal nares present Eyes: General: appearance normal, both eyes and all related structures Sclera: sclerae normal Neck: Neck: supple and no JVD Chest: Other: No reproducible chest wall pain to palpation Resp: Effort & Inspection: normal respiratory effort Auscultation: clear to auscultation bilaterally Cardio: Rate: regular rate Rhythm: abnormal rhythm irregularly irregular GI: Inspection: non-distended Skin: General skin exam: normal color Neuro: Cranial nerves: Yes Normal hearing present Speech: normal speech and No Abnormal speech present Sensory Exam: normal sensation Extrem: General: no edema Psych: Affect: Sad affect present Objective Data Vital Signs Vital Signs: Vital Signs - 24 hr 11/09/24 09:30 11/09/24 12:00 11/09/24 13:44 Temperature Pulse Rate 121 H Respiratory Rate Blood Pressure 86/55 L Pulse Oximetry 98 Oxygen Delivery Room Air 11/09/24 13:45 11/09/24 16:00 11/09/24 20:00 Temperature 36.4 C L Pulse Rate 85 97 101 H Respiratory Rate 16 Blood Pressure 86/55 L Pulse Oximetry 100 Oxygen Delivery 11/09/24 20:45 11/09/24 22:00 11/10/24 00:00 Temperature 36.1 C L Pulse Rate 94 75 Respiratory Rate 16 Blood Pressure 108/78 Pulse Oximetry 96 Oxygen Delivery Room Air 11/10/24 05:14 11/10/24 05:15 Temperature 36.2 C L Pulse Rate 72 81 Respiratory Rate 18 Blood Pressure 92/57 L Pulse Oximetry 96 Oxygen Delivery Intake/Output Intake/Output: Intake & Output 11/07/24 11/08/24 11/09/24 11/10/24 23:59 23:59 23:59 23:59 Intake Total 3500 203 2885 250 Output Total 1800 Balance -895 721 7270 250 Meds/Results Medications: Active Medications Generic Name Dose Route Start Last Admin Trade Name Freq PRN Reason Stop Dose Admin Albuterol 2 puff 11/02/24 21:58 Albuterol Sulfate (*Sp) Aerosol 1 Puff INHALATION Q6HRT PRN shortness of breath or wheezing Apixaban 5 mg 11/05/24 21:00 11/09/24 22:14 Apixaban 5 Mg Tablet PO 5 mg Q12HR FRANCISCO Administration Bisacodyl 10 mg 11/04/24 16:51 Bisacodyl 10 Mg Suppository RECTAL QAM PRN Constipation Clopidogrel Bisulfate 75 mg 11/06/24 09:00 11/09/24 09:33 Clopidogrel Bisulfate 75 Mg Tablet PO 75 mg DAILY FRANCISCO Administration Fluticasone/Umeclidinium/Vilanterol 1 puff 11/09/24 08:00 11/10/24 08:36 Fluticasone/Umeclidin/Vilanter 100-62.5-25 Mcg Ellipta INHALATION Not Given DAILYRT FRANCISCO Metoprolol Succinate 12.5 mg 11/11/24 09:00 Metoprolol Succinate Ext Rel 12.5 Mg Tabcr PO QAM FRANCISCO Mirtazapine 7.5 mg 11/04/24 21:00 11/09/24 22:14 Mirtazapine 7.5 Mg Tablet PO 7.5 mg HS FRANCISCO Administration Polyethylene Glycol 17 gm 11/05/24 17:00 11/09/24 16:45 Polyethylene Glycol 3350 17 Gm Powd.Pack PO Not Given BID FRANCISCO Potassium Chloride 40 meq 11/07/24 09:00 11/09/24 09:33 Potassium Chloride 20 Meq Packet (For Liquid) PO 40 meq DAILY FRANCISCO Administration Tamsulosin HCl 0.4 mg 11/05/24 21:00 11/09/24 22:14 Tamsulosin Hcl 0.4 Mg Capsule PO 0.4 mg HS FRANCISCO Administration Vitamin D 25 mcg 11/05/24 09:00 11/09/24 09:33 Cholecalciferol (Vitamin D3) 25 Mcg (1,000 Units) Tablet PO 25 mcg DAILY FRANCISCO Administration Radiology Results: ITS Impressions Abdomen/Pelvis CT 11/02/24 19:52 IMPRESSION: Right ventricular and right atrial enlargement. Decreased cardiac output may be present given the late arterial appearance of these portal venous timed images. Moderate esophagitis/gastritis. Specific heterogeneity in the medial right hepatic lobe. Possible 14 mm pancreatic head or ampullary lesion. Recommend MR/MRCP of the abdomen without and with contrast for further evaluation of these findings. Consider GI consultation for potential ERCP. Very mild extra hepatic bile duct dilation. Modified Barium Swallow 11/03/24 12:13 IMPRESSION: Patient tolerated regular consistency oral feedings in the upright position. Please correlate with speech pathologist findings and specific feeding recommendations. Barium Swallow X-Ray 11/03/24 12:14 IMPRESSION: 1. Mild esophageal dysmotility with some tertiary contractions in mid to distal esophagus. Otherwise unremarkable esophagram with no masses or strictures. MRCP 11/04/24 09:31 IMPRESSION: 1. Normal pancreas. Nodular appearing region of concern on prior CT upon review of the [address] studies including sagittal and coronal images suggests this represents artifactual appearance of a nodule resulting from a fold in the duodenum viewed en face. 2. Nonspecific soft tissue tissue edema and small amount of ascites scattered throughout the abdomen and pelvis. 3. Gallbladder sludge with no gallstones or intra or extrahepatic biliary ductal dilation.
[2024-11-10] MEDS: POTASSIUM CHLORIDE 20 MEQ PACKET (FOR LIQUID) 40 MEQ PO (10:12)
[2024-11-10] MEDS: CLOPIDOGREL BISULFATE 75 MG TABLET PO (10:13)
[2024-11-10] MEDS: APIXABAN 5 MG TABLET PO (10:13)
[2024-11-10] MEDS: CHOLECALCIFEROL (VITAMIN D3) 25 MCG (1,000 UNITS) TABLET PO (10:13)
--- NOTE | 2024-11-10 10:38 | P.PNIM_ITS ---
Progress Note: A&P Assessment and Plan (1) Dysphagia: Qualifiers: Dysphagia type: esophageal phase Qualified Code(s): R13.19 - Other dysphagia Code(s): R13.10 - Dysphagia, unspecified Status: Acute Assessment and Plan: -Structural verses functional - MBS overall unremarkable, speech recommended regular diet and thin liquids -EGD 11/04 with concerns for duodenitis versus celiac disease, but she feels this finding is insufficient to explain the patient's severe weight loss. Biopsies were taken to rule out eosinophilic esophagitis. -further workup of abnormal MRCP as below no acute interventions for today 11/07 pt is doing fair- continue to encouraged po intake receiving supplements (2) Adult failure to thrive: Code(s): R62.7 - Adult failure to thrive Status: Acute Assessment and Plan: -Acute weight loss according to pt's brothers of 50+ lb over the course of past of months citing his normal weight is in the 150s, currently 95 lbs -Patient states he cannot eat due to feeling that he has difficulty swallowing and it elicits abdominal pain. -dietitian consulted -workup as above -concern for functional component to patient's symptoms. Family very concerned about patient's mental health and requested psych consult. supplements encouraged (3) Esophagitis: Code(s): K20.90 - Esophagitis, unspecified without bleeding Status: Acute Assessment and Plan: -EGD as above, biopsies pending - continue Protonix (4) Pancreatic lesion: Code(s): K86.9 - Disease of pancreas, unspecified Status: Acute Assessment and Plan: -As noted per CT scan a 14 mm pancreatic head or ampullary lesion is present. - MRCP actually showed normal pancreas, CT findings thought to be artifact. Also showed nonspecific soft tissue edema and ascites - does not explain patient's presenting symptoms will need to f/u with GI as an oupt as last visit was while back (5) Ascites: Code(s): R18.8 - Other ascites Status: Acute Assessment and Plan: - MRCP showed small volume ascites and patient has no signs of liver disease to explain this - GI recommended surgery consult due to concern for carcinomatosis. General surgery consult placed. - resume Plavix and Eliquis if no plans for surgical work-up no interventions advised- will resume medication (6) MDD (major depressive disorder): Qualifiers: Major depression recurrence: recurrent Active/Remission status: currently active Major depression episode severity: severe Psychotic features: without psychotic features Qualified Code(s): F33.2 - Major depressive disorder, recurrent severe without psychotic features Code(s): F32.9 - Major depressive disorder, single episode, unspecified Status: Chronic Assessment and Plan: -Patient not currently medicated for depression. -Recommend initiating treatment with SSRI once patient has passed swallow evaluation. -He is not experiencing any suicidal ideation. depressed mood psych following-continue with regimen and titration recommended per psych Start mirtazapine 7.5 mg or 15 mg PO at bedtime, titrate up to 30 mg over several weeks.(this does have an ODT formulation) (7) Pulmonary emphysema: Qualifiers: Emphysema type: unspecified Qualified Code(s): J43.9 - Emphysema, unspecified Code(s): J43.9 - Emphysema, unspecified Status: Chronic Assessment and Plan: -Continue trelegy and albuterol (8) Atrial fibrillation: Code(s): I48.91 - Unspecified atrial fibrillation Status: Acute Assessment and Plan: - on Elilucyis - held for work-up - continue metoprolol episodes of elevated HR ekg ordered tsh checked on 07/08/24- 1.850 currently on metoprolol will consult card for mngmnt cardiology saw pt- appreciate recommendation: Continue metoprolol succinate for rate control. He does have a recent ASD closure at [place]. Recommendation is to continue triple therapy with aspirin, clopidogrel and Eliquis for 1 month after procedure. Procedure was performed on September 15, 2024. After 1 month, recommendation was to discontinue aspirin. Therefore Stopped aspirin yesterday. Continue clopidogrel and Eliquis. At 2 months it is then recommended to stop his clopidogrel and then continue Eliquis indefinitely. 11/10 few episodes of hypotension. Noted that cardiology decreased metoprolol dose to 12.5 mg daily. (9) Thrombocytopenia: Code(s): D69.6 - Thrombocytopenia, unspecified Status: Acute Assessment and Plan: - plt 118 - monitor CBC (10) Vitamin D deficiency: Code(s): E55.9 - Vitamin D deficiency, unspecified Status: Acute Assessment and Plan: - start PO supplementation (11) Chronic HFrEF (heart failure with reduced ejection fraction): Code(s): I50.22 - Chronic systolic (congestive) heart failure Status: Acute Assessment and Plan: - reported history of EF 40% - echo 11/03 with EF 55%, normal diastolic function, small pericardial effusion - BNP elevated, but appears dry - continue home metoprolol, not on ACEi/ARB? Patient has been noncompliant with meds - also had recent closure of hole in the heart a few months ago per brother stable- no chest pain, no sob (12) Prostate enlargement: Code(s): N40.0 - Benign prostatic hyperplasia without lower urinary tract symptoms Status: Acute Assessment and Plan: - noted on admit CT - UA negative - PRN bladder scan (13) Steatohepatitis: Code(s): K75.81 - Nonalcoholic steatohepatitis (LAMB) Status: Acute Assessment and Plan: - per history - monitor LFTs (14) Hypokalemia: Code(s): E87.6 - Hypokalemia Status: Acute Assessment and Plan: -PO/IV replacement ordered -recheck in AM 3.4 today- will order po replacement (15) Malnutrition: Code(s): E46 - Unspecified protein-calorie malnutrition Status: Acute Assessment and Plan: encourage nutritional supplement Plan waiting from insurance for approval for rehab Subjective Date/time seen: 11/10/24 10:38 Interval history: 59-year-old male patient who appears older than stated age with past medical history of depression, atrial fibrillation status post radioablation at [facility] 2 months ago, COPD, heart failure, chronic pain and BPH who presents to the emergency room accompanied by his 2 brothers after they encouraged him to come for complaints decreased p.o. intake for the past 2 months stating he is ?unable to swallow and therefore has not been eating for several weeks or drinking very much. Date of service 11/09/2024: Still feels very weak, cachectic. No chest pain or shortness of breath. Review of Systems Review of Systems: All systems reviewed & are unremarkable except as noted in HPI and below Exam Narrative: General: frail, cachectic, appears older than stated age Eyes: EOMI ENT: neck supple Cardiovascular: Regular rate and rhythm Respiratory: Clear to auscultation, respirations even and unlabored on RA Gastrointestinal: Soft, mild left lower quadrant tenderness Genitourinary: no suprapubic tenderness Musculoskeletal: No edema, muscle wasting Skin: warm, dry Neuro: Alert. Psych: anxious, flat affect Const: General: comfortable Other: Cachectic and very thin, emaciated male pt lying supine at this time. Resp: Effort & Inspection: normal respiratory effort Auscultation: clear to auscultation bilaterally Cardio: Heart sounds: no gallops Psych: Other: flat affect Objective Data Vital Signs Vital Signs: Vital Signs - 24 hr 11/09/24 12:00 11/09/24 13:44 11/09/24 13:45 Temperature 97.5 F L Pulse Rate 121 H 85 Respiratory Rate 16 Blood Pressure 86/55 L 86/55 L Pulse Oximetry 100 Oxygen Delivery 11/09/24 16:00 11/09/24 20:00 11/09/24 20:45 Temperature 97 F L Pulse Rate 97 101 H 94 Respiratory Rate 16 Blood Pressure 108/78 Pulse Oximetry 96 Oxygen Delivery 11/09/24 22:00 11/10/24 00:00 11/10/24 05:14 Temperature Pulse Rate 75 72 Respiratory Rate Blood Pressure Pulse Oximetry Oxygen Delivery Room Air 11/10/24 05:15 Temperature 97.1 F L Pulse Rate 81 Respiratory Rate 18 Blood Pressure 92/57 L Pulse Oximetry 96 Oxygen Delivery Intake/Output Intake/Output: Intake & Output 11/07/24 11/08/24 11/09/24 11/10/24 23:59 23:59 23:59 23:59 Intake Total 4424 864 7852 370 Output Total 1800 Balance -372 842 3043 370 Meds/Results Medications: Active Medications Generic Name Dose Route Start Last Admin Trade Name Freq PRN Reason Stop Dose Admin Albuterol 2 puff 11/02/24 21:58 Albuterol Sulfate (*Sp) Aerosol 1 Puff INHALATION Q6HRT PRN shortness of breath or wheezing Apixaban 5 mg 11/05/24 21:00 11/10/24 10:13 Apixaban 5 Mg Tablet PO 5 mg Q12HR FRANCISCO Administration Bisacodyl 10 mg 11/04/24 16:51 Bisacodyl 10 Mg Suppository RECTAL QAM PRN Constipation Clopidogrel Bisulfate 75 mg 11/06/24 09:00 11/10/24 10:13 Clopidogrel Bisulfate 75 Mg Tablet PO 75 mg DAILY FRANCISCO Administration Fluticasone/Umeclidinium/Vilanterol 1 puff 11/09/24 08:00 11/10/24 08:36 Fluticasone/Umeclidin/Vilanter 100-62.5-25 Mcg Ellipta INHALATION Not Given DAILYRT FRANCISCO Metoprolol Succinate 12.5 mg 11/10/24 10:00 Metoprolol Succinate Ext Rel 12.5 Mg Tabcr PO QAM FRANCISCO Mirtazapine 7.5 mg 11/04/24 21:00 11/09/24 22:14 Mirtazapine 7.5 Mg Tablet PO 7.5 mg HS FRANCISCO Administration Polyethylene Glycol 17 gm 11/05/24 17:00 11/10/24 10:12 Polyethylene Glycol 3350 17 Gm Powd.Pack PO 17 gm BID FRANCISCO Administration Potassium Chloride 40 meq 11/07/24 09:00 11/10/24 10:12 Potassium Chloride 20 Meq Packet (For Liquid) PO 40 meq DAILY FRANCISCO Administration Tamsulosin HCl 0.4 mg 11/05/24 21:00 11/09/24 22:14 Tamsulosin Hcl 0.4 Mg Capsule PO 0.4 mg HS FARNCISCO Administration Vitamin D 25 mcg 11/05/24 09:00 11/10/24 10:13 Cholecalciferol (Vitamin D3) 25 Mcg (1,000 Units) Tablet PO 25 mcg DAILY FRANCISCO Administration Radiology Results: ITS Impressions Abdomen/Pelvis CT 11/02/24 19:52 IMPRESSION: Right ventricular and right atrial enlargement. Decreased cardiac output may be present given the late arterial appearance of these portal venous timed images. Moderate esophagitis/gastritis. Specific heterogeneity in the medial right hepatic lobe. Possible 14 mm pancreatic head or ampullary lesion. Recommend MR/MRCP of the abdomen without and with contrast for further evaluation of these findings. Consider GI consul tation for potential ERCP. Very mild extra hepatic bile duct dilation. Modified Barium Swallow 11/03/24 12:13 IMPRESSION: Patient tolerated regular consistency oral feedings in the upright position. Please correlate with speech pathologist findings and specific feeding recommendations. Barium Swallow X-Ray 11/03/24 12:14 IMPRESSION: 1. Mild esophageal dysmotility with some tertiary contractions in mid to distal esophagus. Otherwise unremarkable esophagram with no masses or strictures. MRCP 11/04/24 09:31 IMPRESSION: 1. Normal pancreas. Nodular appearing region of concern on prior CT upon review of the [address] studies including sagittal and coronal images suggests this represents artifactual appearance of a nodule resulting from a fold in the duodenum viewed en face. 2. Nonspecific soft tissue tissue edema and small amount of ascites scattered throughout the abdomen and pelvis. 3. Gallbladder sludge with no gallstones or intra or extrahepatic biliary ductal dilation. Quality VTE Prophylaxis VTE prophylaxis: mechanical ordered
[2024-11-10 10:53] LABS: Hematocrit 35.4 % (42.0-52.0); Hemoglobin 12.0 g/dL (14.0-18.0); Mean Corpuscular HGB Conc 33.9 g/dl (32-36); Mean Corpuscular Hemoglobin 32.5 pg (26-34); Mean Corpuscular Volume 95.9 fl (80-100); Platelet Count Result 158 k/mm3 (150-375); Red Blood Count 3.69 M/mm3 (4.6-6.20); White Blood Count 3.8 K/mm3 (4.5-10.0)
[2024-11-10] MEDS: SODIUM CHLORIDE 0.9% IV 200 ML 999 ML IV CONT (11:13)
[2024-11-10 11:21] LABS: Anion Gap 4 mmol/L (4-12); Blood Urea Nitrogen 15 mg/dL (9-20); Calcium 9.4 mg/dL (8.4-10.2); Carbon Dioxide 30 mmol/L (22-30); Chloride 102 mmol/L (98-107); Estimated CRCL calculation 79 ml/min; Estimated Glomerular Filt Rate > 60; Glucose 96 mg/dL (65-110); Potassium 4.0 mmol/L (3.4-5.0); Sodium 136 mmol/L (137-145)
[2024-11-10] MEDS: METOPROLOL SUCCINATE EXT REL 12.5 MG TABCR PO (11:21)
--- NOTE | 2024-11-10 14:06 | P.DS_ITS ---
DS: Admitting Diagnosis Discharge Date 11/10 Admitting Diagnosis abd pain, difficulties swalloing DS: Discharge Diagnosis Discharge Diagnosis (1) Dysphagia: Qualifiers: Dysphagia type: esophageal phase Qualified Code(s): R13.19 - Other dysphagia Code(s): R13.10 - Dysphagia, unspecified Status: Acute (2) Adult failure to thrive: Code(s): R62.7 - Adult failure to thrive Status: Acute (3) Esophagitis: Code(s): K20.90 - Esophagitis, unspecified without bleeding Status: Acute (4) Pancreatic lesion: Code(s): K86.9 - Disease of pancreas, unspecified Status: Acute (5) Ascites: Code(s): R18.8 - Other ascites Status: Acute (6) MDD (major depressive disorder): Qualifiers: Active/Remission status: currently active Major depression episode severity: severe Major depression recurrence: recurrent Psychotic features: without psychotic features Qualified Code(s): F33.2 - Major depressive disorder, recurrent severe without psychotic features Code(s): F32.9 - Major depressive disorder, single episode, unspecified Status: Chronic (7) Pulmonary emphysema: Qualifiers: Emphysema type: unspecified Qualified Code(s): J43.9 - Emphysema, unspecified Code(s): J43.9 - Emphysema, unspecified Status: Chronic (8) Atrial fibrillation: Code(s): I48.91 - Unspecified atrial fibrillation Status: Acute Assessment and Plan: - (9) Thrombocytopenia: Code(s): D69.6 - Thrombocytopenia, unspecified Status: Acute Assessment and Plan: - (10) Vitamin D deficiency: Code(s): E55.9 - Vitamin D deficiency, unspecified Status: Acute Assessment and Plan: - (11) Chronic HFrEF (heart failure with reduced ejection fraction): Code(s): I50.22 - Chronic systolic (congestive) heart failure Status: Acute (12) Prostate enlargement: Code(s): N40.0 - Benign prostatic hyperplasia without lower urinary tract symptoms Status: Acute (13) Steatohepatitis: Code(s): K75.81 - Nonalcoholic steatohepatitis (LAMB) Status: Acute (14) Hypokalemia: Code(s): E87.6 - Hypokalemia Status: Acute Assessment and Plan: - (15) Malnutrition: Code(s): E46 - Unspecified protein-calorie malnutrition Status: Acute DS: Summary Hospital Course Hospital Course: This is a 59-year-old male patient who appears older than stated age with past medical history of depression, atrial fibrillation status post radioablation at [place] 2 months ago, COPD, heart failure, chronic pain and BPH who presents to the emergency room accompanied by his 2 brothers after they encouraged him to come for complaints decreased p.o. intake for the past 2 months stating he is ?unable to swallow and therefore has not been eating for several weeks or drinking very much. Patient recently had to move in with his father for his father to take care of him. Patient endorses a 10 lb weight loss over the past couple of weeks but his brother's endorse to 50 lb lost over the course of the past couple of months citing that his normal weight is in the 150s and he presents today weighing 95 lb. Patient reports that his stomach feels tight whenever he attempts to eat and he has pain. He is concerned he may have a bowel obstruction as he has not been bowel movements. He has a history of hernia surgeries x3 and stated he had a colonoscopy years ago although he cannot remember why. He denies having any vomiting/nausea/melanous appearing stools or hematochezia. He denies having any fever he just reports that he cannot swallow or eat. It is noted that he states he feels as though his depression is worse. He denies any SI or HI. He cannot identify any stressful factor causing his depression to worsen. Patient reports he does not partake of any nicotine, alcohol or illicit drugs. CBC unremarkable with no elevation WBCs and normal H&H. Metabolic panel also unremarkable with normal electrolytes. BNP is 1800, lipase is negative and ammonia is less than 9. CT abdomen and pelvis was performed showing moderate gastritis/esophagitis and patient received Protonix IV in the emergency room. 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 Patient is being admitted in the current setting of dysphagia and potential failure to thrive for swallow evaluation and or GI evaluation with further workup. All questions answered to his and his brother satisfaction prior to being admitted. He was evaluated per GI: PPI is ordered. ..Concern for small amount of ascites on a recent MRI. The differential diagnosis includes early peritoneal carcinomatosis, which could explain the patient's severe weight loss and abdominal pain. The patient is not considered a surgical candidate for laparoscopic exploration. A follow-up CT scan will be scheduled at our institution in one month. A colonoscopy is part of the planned workup, but the patient's dysphagia prevents him from tolerating the necessary bowel preparation. Pt will have to f/u with GI in 2-3 weeks. He was seen per surgery and no acute interventions were recommended. Cardiology saw him for afib. He had few episodes with RVR. He was on metoprolol ER 50 mg daily. Dose was decreased to 12.[address] Gonzalez today. Several episodes of hypotension but pretty much asymptomatic. Cardiology was aware and no new ordered. Continue metoprolol succinate for rate control. He does have a recent ASD closure at [place]. Recommendation is to continue triple therapy with aspirin, clopidogrel and Eliquis for 1 month after procedure. Procedure was performed on September 15, 2024. After 1 month, recommendation was to discontinue aspirin. Therefore Stopped aspirin yesterday. Continue clopidogrel and Eliquis. At 2 months it is then recommended to stop his clopidogrel and then continue Eliquis indefinitely. He was evaluated per psychiatry and started on remeron. Plan: a. Start mirtazapine 7.5 mg or 15 mg PO at bedtime, titrate up to 30 mg over several weeks.(this does have an ODT formulation) b. Provide patient education on mechanism of action and timeline for symptom improvement. c. Recommend follow-up with outpatient mental health provider. DOSE INCREASED TO 15 MG 11/10/24 Status at Discharge Functional status at discharge: uses cane/walker Overall status at discharge: patient is progressing back to baseline Time Spent with Patient Time attestation: Total time spent providing and/or coordinating discharge services: Time spent: Greater than 30 minutes Exam Narrative: General: frail, cachectic, appears older than stated age Eyes: EOMI ENT: neck supple Cardiovascular: Regular rate and rhythm Respiratory: Clear to auscultation, respirations even and unlabored on RA Gastrointestinal: Soft, mild left lower quadrant tenderness Genitourinary: no suprapubic tenderness Musculoskeletal: No edema, muscle wasting Skin: warm, dry Neuro: Alert. Psych: flat affect Const: General: comfortable Resp: Effort & Inspection: normal respiratory effort Auscultation: clear to auscultation bilaterally Cardio: Heart sounds: no gallops Psych: Other: flat affect DS: Data Data Completed and Pending Completed studies during hospitalization: Pending at discharge 11/04/24 14:13 Surgical [PTH] Routine Labs on day of discharge: Labs from last 24 hours 11/10/24 10:48 WBC 3.8 L RBC 3.69 L Hgb 12.0 L Hct 35.4 L MCV 95.9 MCH 32.5 MCHC 33.9 RDW 14.5 Plt Count 158 MPV 9.2 Sodium 136 L Potassium 4.0 Chloride 102 Carbon Dioxide 30 Anion Gap 4 BUN 15 Creatinine 0.54 L Estim Creat Clear Calc 79 Estimated GFR > 60 Glucose 96 Calcium 9.4 Discharge Plan Discharge Attending physician on discharge: Yelena Christopher Consulting providers: Fior Null; Jose Alba; Gloria Chavez Discharging Clinician: Tisha Piedra Patient Disposition: SNF Activity: july shower Diet: regular Patient Language: Urdu Stand Alone Forms: General Discharge Information Follow-up/Referrals: Jose Alba MD [Physician] - 2 Weeks Fior Null PA [Physician Heel Pricker] - Louis Hewitt MD [Primary Care Provider] - 2 Weeks Discharge Medications: New metoprolol succinate [Toprol XL] 25 mg tablet extended release 24 hr 12.5 mg PO DAILY Qty: 90 0RF mirtazapine [Remeron] 15 mg Tablet 15 mg PO HS Qty: 90 0RF famotidine [Pepcid] 20 mg tablet 20 mg PO DAILY Qty: 90 0RF Continued tamsulosin [Flomax] 0.4 mg capsule 0.4 mg PO HS acetaminophen 500 mg capsule 1,000 mg PO Q6H PRN (Reason: pain) clopidogrel 75 mg tablet 75 mg PO DAILY Patient Comments: pt stated stopped taking medication when he could not eat Trelegy Ellipta 100-62.5-25 mcg blister with device 1 inh inhalation DAILY docusate sodium 100 mg capsule 100 mg PO BID Qty: 60 0RF albuterol sulfate 90 mcg/actuation HFA aerosol inhaler 2 inh inhalation Q6H PRN (Reason: shortness of breath or wheezing) Qty: 8.5 2RF Eliquis 5 mg tablet 5 mg PO BID Qty: 180 0RF Patient Comments: Pt stated he quit taking when he could not eat Discontinued metoprolol succinate 50 mg tablet extended release 24 hr 50 mg PO HS Patient Comments: pt stated has not taken since he has not been able to eat aspirin 81 mg capsule 81 mg PO DAILY Patient Comments: pt stated stopped taking when could not eat senna 8.6 mg capsule 17.2 mg PO DAILY doxycycline monohydrate 100 mg capsule 100 mg PO BID Qty: 14 0RF Date of admission: 11/03/24 07:58 Primary Care Provider: Louis Hewitt Admitting Provider: Chico Arroyo Attending physician on admission: Chico Arroyo Condition: Stable Quality VTE Prophylaxis VTE prophylaxis: mechanical ordered Hospitalist MIPS Heart Failure (Exclusion) Patient has history of Heart Transplant or Left Ventricular Assistive Device?: No IF YES, STOP HERE Heart Failure (Qualifier) Patient has current or prior documentation of LVEF less than or equal to 40%, or mod/servere depressed LVSF?: No IF NO, STOP HERE
== END 2024-11-10 17:38 | DRG 640 ==
LOC: ANHED 20:32 → ANH2MED 21:09
PROVIDERS: Internal Medicine; Internal Medicine Gastroenterology; Nurse Practitioner Adult Health; Nurse Practitioner Family; Physician Assistant; Admitting Provider Internal Medicine; Emergency Provider Emergency Medicine; PCP Family Medicine; Visit Provider Nurse Practitioner
PROC: 0DJ08ZZ Inspection of Upper Intestinal Tract, Via Natural or Artificial Opening Endoscopic (ICD-10-PCS; principal; 2024-11-04 13:30)
DX: R62.7 Adult failure to thrive (principal); E43 Unspecified severe protein-calorie malnutrition; I48.20 Chronic atrial fibrillation, unspecified; I50.22 Chronic systolic (congestive) heart failure; M47.12 Other spondylosis with myelopathy, cervical region; R18.8 Other ascites; Z68.1 Body mass index [BMI] 19.9 or less, adult; F32.9 Major depressive disorder, single episode, unspecified; D69.6 Thrombocytopenia, unspecified; E87.6 Hypokalemia; E55.9 Vitamin D deficiency, unspecified; J44.9 Chronic obstructive pulmonary disease, unspecified; K29.90 Gastroduodenitis, unspecified, without bleeding; K20.90 Esophagitis, unspecified without bleeding; K75.81 Nonalcoholic steatohepatitis (NASH); R63.4 Abnormal weight loss; N40.0 Benign prostatic hyperplasia without lower urinary tract symptoms; M47.816 Spondylosis without myelopathy or radiculopathy, lumbar region; F41.9 Anxiety disorder, unspecified; Z79.01 Long term (current) use of anticoagulants; Z79.02 Long term (current) use of antithrombotics/antiplatelets; Z79.82 Long term (current) use of aspirin
CPT/HCPCS: 36415; 74177; 74183; 74220; 74230; 76376; 80048; 80053; 81003; 82140; 82306; 82378; 82550; 82607; 82746; 83605; 83690; 83735; 83880; 84100; 84443; 85025; 85027; 85055; 85610; 85730; 86301; 88305; 92610; 92611; 93005; 93306; 94640; 96361; 96374; 96375; 97110; 97162; 97165; 97530; 97535; 99285; A9270; G0378; J0616; J2003; J2470; J2704; J3480; J7030; J7040; J7120; Q9967